=== PATIENT | male | born 1965 | race Caucasian/White ===

== ENCOUNTER 2017-01-03 08:52 | Observation (INO) ==
--- NOTE | 2017-01-03 09:35 | Emergency Department Note ---
Disposition Clinical Impression: Elevated troponin, Shortness of breath, Peripheral edema, Renal insufficiency, Diabetic foot ulcer Disposition: Admitted As Inpatient Condition: Fair Referrals: Billie Van, [employer] [Primary Care Provider] - Forms: ED Satisfaction Letter Time of Disposition: 11:01 SOB HPI - General Chief Complaint: ED Shortness of Breath/Dyspnea Stated Complaint: OBEY/sore L foot Time Seen by Provider: 01/03/17 09:16 Source: patient Limitations: no limitations Nursing Notes Reviewed: Yes Vital Signs Reviewed: Yes - History of Present Illness 51-year-old male presents emergency room for shortness of breath. Is also complaining of dyspnea on exertion over the past couple days. States he feels congested with fluid. Admits to lower extremity swelling that is abnormal for him. He denies any chest pain today. No cough or sputum production. No fevers or chills. He does have a history of congestive heart failure as well as open heart surgery. Symptoms are worse with exertion. Better at rest. He also feels short of breath laying flat. He does admit to taking his Lasix twice daily. Pt Subjective Complaint: shortness of breath Onset (ago): day(s) Severity: moderate Consistency/Duration: constant Improves with: rest Worsens with: exertion Known history of: congestive heart failure Associated symptoms: Reports: chest pain, orthopnea Treatment prior to arrival: none Cough present: No - Related Data Home Medications Medication Instructions Recorded Confirmed Ferrous Sulfate 325 mg PO DAILY 03/11/15 11/15/16 Lisinopril [Zestril] 10 mg PO DAILY 05/05/15 11/15/16 Metoprolol XL (24 HR) Succ [Toprol 50 mg PO DAILY 05/05/15 11/15/16 Xl] Aspirin [Lo-Dose Aspirin EC] 81 mg PO QAM 03/11/16 11/15/16 Atorvastatin [Lipitor] 40 mg PO HS 03/11/16 11/15/16 Insulin ASPART [Novolog Flexpen] 30 unit SQ TIDWM 03/11/16 11/15/16 Liraglutide [Victoza 2-Albino] 0.2 ml SQ HS 03/11/16 11/15/16 Rivaroxaban [Xarelto] 20 mg PO QAM 03/11/16 11/15/16 Albuterol Sulfate [Ventolin Hfa] 2 puff IH Q4H PRN 06/07/16 11/15/16 Diltiazem HCl [Diltiazem 24Hr Cd] 360 mg PO DAILY 06/07/16 11/15/16 Insulin Glargine [Lantus] 80 unit SQ BID 06/07/16 11/15/16 Previous Rx's Medication Instructions Recorded Furosemide [Lasix] 40 mg PO BID 30 Days 06/09/16 predniSONE [PredniSONE] 40 mg PO DAILY 12 Days 06/09/16 Ciprofloxacin [Cipro] 500 mg PO BID #20 tablet 11/15/16 Clindamycin HCl [Cleocin HCl] 150 mg PO QID #40 capsule 11/15/16 Allergies Allergy/AdvReac Type Severity Reaction Status Date / Time No Known Allergies Allergy Verified 11/15/16 12:30 Review of Systems: Gen.: No fevers or chills or new weakness Eyes: Denies double vision or any vision changes Ears: Denies any otalgia Pharynx: Denies sore throat CV: Denies chest pain. Denies palpitations. + for swelling Respiratory: +sob GI: Denies any nausea, vomiting, diarrhea, constipation. Denies abdominal pain Neuro: Denies any headache. No problems with ambulation. No numbness. Skin: Denies any rashes or abrasions Psych: Denies any depression or suicidal or homicidal ideation Musculoskeletal: Denies any arthralgias or myalgias Past Medical History - Past Medical History Medical history: Reports: atrial fibrillation, CHF, COPD, coronary artery disease, CVA, diabetes, GERD, hyperlipidemia, hypertension, myocardial infarction, renal disease Surgical history: Reports: coronary bypass (CABG), other Psychiatric history: Reports: no psych history - Social History Smoking Status: Former smoker Smokeless Tobacco Status: Yes (chewing tobacco) Alcohol use: Reports: none Drug use: Reports: none Physical Exam - General Limitations: no limitations General appearance: alert - Head Head exam: atraumatic, normocephalic - Chest Chest inspection: Present: normal inspection, symmetric chest wall rise - Respiratory Respiratory exam: Present: other (Decreased breath sounds in the bases bilaterally.). Absent: accessory muscle use - Cardiovascular Cardiovascular exam: Present: regular rate, normal rhythm - Abdominal Exam Abdominal exam: Present: soft, Non-Tender - Extremities Exam Extremities exam: Present: other (2-3+ pitting edema bilaterally. Patient also has a ulceration to the medial aspect of the left great toe as well as to the ball of the foot on the left side.) - Back Exam Back exam: Present: normal inspection - Neurological Exam Neurological exam: Present: alert, oriented X3 - Psychiatric Psychiatric exam: Present: normal affect, normal mood - Skin Skin exam: Present: warm, dry, intact Course Course Narrative: Patient's workup revealed an elevated troponin. It is unclear whether this is due to his renal insufficiency or true cardiac etiology. He is not having any chest pain. This was complaints of for dyspnea on exertion. He does wear oxygen at night. He satting fine here in the ER. He is not tachycardic. He does have an underlying history of atrial fibrillation. He does take Xarelto. He has been compliant with his medications as well as his Lasix. Patient will need to be admitted for further cardiac workup. Vital Signs Temperature 97.8 F 01/03/17 08:58 Pulse Rate 75 01/03/17 08:58 Respiratory Rate 18 01/03/17 08:58 Blood Pressure 170/74 01/03/17 08:58 O2 Sat by Pulse Oximetry 93 01/03/17 08:58 Temperature 97.8 F 01/03/17 08:58 Pulse Rate 64 01/03/17 09:43 Respiratory Rate 24 01/03/17 09:43 Blood Pressure 141/69 01/03/17 09:43 O2 Sat by Pulse Oximetry 98 01/03/17 09:55 Oxygen Delivery Oxygen Delivery Nasal Cannula Shortness of Breath/Dyspnea - Medical Records Medical records reviewed: Yes I reviewed the patient's medical records. - Lab Data Lab results reviewed: Yes I reviewed the patient's lab results. Result diagrams: 01/03/17 09:32 01/03/17 09:32 Lab Results 01/03/17 01/03/17 01/03/17 Range/Units 09:32 09:32 09:32 WBC 10.9 (4.3-11.1) K/mcL RBC 4.40 (4.19-5.50) M/mcL Hgb 10.3 L (12.9-16.9) g/dL Hct 33.9 L (37.5-50.1) % MCV 77.0 L (83.0-100.0) fL MCH 23.4 L (28.0-33.3) pg MCHC 30.4 L (31.6-35.5) g/dL RDW 17.0 H (11.5-14.5) % Plt Count 252 (140-400) K/mcL MPV 9.2 L (9.4-12.4) fL Immature Gran % 0.5 (0-4) % Seg Neutrophils % 79.4 % Lymphocytes % 11.6 % Monocytes % 6.1 % Eosinophils % 2.1 % Basophils % 0.3 % Neutrophils # 8.7 (1.6-8.9) K/mcL Lymphocytes # 1.3 (0.6-4.6) K/mcL Monocytes # 0.7 (0.0-1.3) K/mcL Eosinophils # 0.2 (0.0-0.6) K/mcL Basophils # 0.0 (0.0-0.2) K/mcL Immature Plt Fraction 2.3 (1.1-6.1) % PT (9.4-12.1) Seconds INR APTT (26.0-36.0) Seconds Sodium 139 (136-145) mEq/L Potassium 3.6 (3.5-4.5) mEq/L Chloride 105 (98-109) mEq/L Carbon Dioxide 23 (19-29) mEq/L BUN 25 (8-26) mg/dL Creatinine 1.81 H (0.72-1.25) mg/dL Est GFR ( Amer) 48 L (> 60) Est GFR (Non-Af Amer) 39 L (> 60) BUN/Creatinine Ratio 14 (6-26) Glucose 145 H (70-99) mg/dL Calculated Osmolality 295 (280-300) Calcium 9.3 (8.6-10.8) mg/dL Troponin I 0.12 H* (0-0.03) ng/mL B-Natriuretic Peptide (0-100) pg/mL 01/03/17 01/03/17 Range/Units 09:32 09:32 WBC (4.3-11.1) K/mcL RBC (4.19-5.50) M/mcL Hgb (12.9-16.9) g/dL Hct (37.5-50.1) % MCV (83.0-100.0) fL MCH (28.0-33.3) pg MCHC (31.6-35.5) g/dL RDW (11.5-14.5) % Plt Count (140-400) K/mcL MPV (9.4-12.4) fL Immature Gran % (0-4) % Seg Neutrophils % % Lymphocytes % % Monocytes % % Eosinophils % % Basophils % % Neutrophils # (1.6-8.9) K/mcL Lymphocytes # (0.6-4.6) K/mcL Monocytes # (0.0-1.3) K/mcL Eosinophils # (0.0-0.6) K/mcL Basophils # (0.0-0.2) K/mcL Immature Plt Fraction (1.1-6.1) % PT 22.2 H (9.4-12.1) Seconds INR 2.0 APTT 44.0 H (26.0-36.0) Seconds Sodium (136-145) mEq/L Potassium (3.5-4.5) mEq/L Chloride (98-109) mEq/L Carbon Dioxide (19-29) mEq/L BUN (8-26) mg/dL Creatinine (0.72-1.25) mg/dL Est GFR ( Amer) (> 60) Est GFR (Non-Af Amer) (> 60) BUN/Creatinine Ratio (6-26) Glucose (70-99) mg/dL Calculated Osmolality (280-300) Calcium (8.6-10.8) mg/dL Troponin I (0-0.03) ng/mL B-Natriuretic Peptide 154 H (0-100) pg/mL - Radiology Data Radiology results reviewed: Yes I reviewed the patient's radiology results. - EKG Data EKG attestation: Yes I reviewed and interpreted this EKG. EKG results narrative: Rate of 73. MD interval indeterminable. Normal axis. There appears to be some occasional premature atrial complexes. No signs of acute ischemia. QRS 129. QTc 459.
[2017-01-03 09:44] LABS: Basophils % 0.3 %; Eosinophils # 0.2 K/mcL (0.0-0.6); Eosinophils % 2.1 %; Hematocrit 33.9 % (37.5-50.1); Hemoglobin 10.3 g/dL (12.9-16.9); Immature Granulocytes % 0.5 % (0-4); Immature Platelets 2.3 % (1.1-6.1); Lymphocytes # 1.3 K/mcL (0.6-4.6); Lymphocytes % 11.6 %; Mean Corpuscular HGB Conc 30.4 g/dL (31.6-35.5); Mean Corpuscular Hemoglobin 23.4 pg (28.0-33.3); Mean Platelet Volume 9.2 fL (9.4-12.4); Monocytes # 0.7 K/mcL (0.0-1.3); Monocytes % 6.1 %; Neutrophils # 8.7 K/mcL (1.6-8.9); Platelet Count 252 K/mcL (140-400); Segmented Neutrophils % 79.4 %
[2017-01-03 09:56] LABS: Prothrombin Time 22.2 Seconds (9.4-12.1)
[2017-01-03 09:58] LABS: Calcium 9.3 mg/dL (8.6-10.8); Potassium 3.6 mEq/L (3.5-4.5)
[2017-01-03] MEDS ORDERED: Furosemide 40 MG/4 ML VIAL IVP ONE (10:01)
[2017-01-03] MEDS ORDERED: Aspirin 325 MG TABLET PO ONE (11:01)
[2017-01-03] MEDS ORDERED: Naloxone 0.4 MG/ML INJ IVP PRN (16:28)
[2017-01-03] MEDS ORDERED: Ondansetron ODT 4 MG TAB.RAPDIS SL PRN (16:28)
--- NOTE | 2017-01-03 16:56 | Internal Med History&Physical ---
<Miles Rosales Yordan - Last Filed: 01/03/17 19:22> Date of Encounter: 01/03/17 Time of Encounter: 12:30 Assessment and Plan (1) Acute exacerbation of CHF (congestive heart failure) Current visit: Yes Status: Acute Assess: Mr. Mercedes is a 51 year old male presents to emergency room for chief complaint of shortness of breath as well as edema of the lower extremities. His reports dyspnea with exertion over the past week as well as leg weakness bilaterally. He states he feels congested with fluid related to his diagnosis of CHF. Patient also states that lower extremity swelling is not normal for him at this amount. Mr. Mercedes reports that symptoms worse with exertion and are better at rest. He also reports feeling short of breath when lying flat. Patient was seen for similar diagnosis 06/07/2016. Plan: Lasix dosage increased in ED Continue 40 mg Lasix BID Supplemental O2 Ordered Continuous cardiac telemetry Continuous SpO2 monitoring Monitor I&O Monitor daily weight Fluid restriction diet 1500 mL Qualifiers: Congestive heart failure type: unspecified congestive heart failure type Qualified Code(s): I50.9 - Heart failure, unspecified (2) Shortness of breath Current visit: Yes Status: Acute Assess: Mr. Mercedes is a 51 year old male presents to emergency room for chief complaint of shortness of breath as well as edema of the lower extremities. His reports dyspnea with exertion over the past week as well as leg weakness bilaterally. He states he feels congested with fluid related to his diagnosis of CHF. Patient also states that lower extremity swelling is not normal for him at this amount. Mr. Mercedes reports that symptoms worse with exertion and are better at rest. He also reports feeling short of breath when lying flat. Patient was seen for similar diagnosis 06/07/2016. Plan: Lasix dosage increased in ED Continue 40 mg Lasix BID Supplemental O2 Ordered Continuous cardiac telemetry Continuous SpO2 monitoring Monitor I&O Monitor daily weight Fluid restriction diet 1500 mL (3) Peripheral edema Current visit: Yes Status: Acute Assess: Mr. Mercedes is a 51 year old male presents to emergency room for chief complaint of shortness of breath as well as edema of the lower extremities. Plan: Lasix dosage increased in ED Continue 40 mg Lasix BID Monitor I&O Monitor daily weight Fluid restriction diet 1500 mL (4) Elevated troponin Current visit: Yes Status: Acute Assess: Patient presents with acute exacerbation of congestive heart failure. First lab draw showed troponin level 0.12. Plan: Trend troponins Continuous cardiac telemetry Cardiology consult ordered Echocardiogram ordered Follow-up labs ordered Monitor patient and vital signs (5) Diabetic foot ulcer Current visit: Yes Status: Acute Assess: Patient presents with diabetic foot ulcer located on outer side of left great toe as well as pad located underneath the foot. Plan: Wound care education ordered Wound care ordered Bed rest with bathroom privileges and [id number] only Blood glucose monitoring ordered Continue patient's insulin Correction insulin dosing ordered Hypoglycemia protocol ordered Qualifiers: Diabetic foot ulcer location: toe Diabetes mellitus type: type 1 Laterality: left Non-pressure ulcer stage: unspecified non-pressure ulcer stage Qualified Code(s): E10.621 - Type 1 diabetes mellitus with foot ulcer; L97.529 - Non-pressure chronic ulcer of other part of left foot with unspecified severity (6) Renal insufficiency Current visit: Yes Status: Chronic Assess: Patient presents with history of chronic renal insufficiency and chronic kidney disease. Plan: 1500 mL fluid restriction diet ordered Repeat creatinine Monitor I&O Monitor daily weight (7) Diabetes Current visit: Yes Status: Chronic Assess: Patient presents with history of chronic diabetes. Patient also presents with diabetic foot ulcer located on outer side of left great toe as well as pad located underneath the foot. 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 Plan: Heparin 5,000 units SQ Q8 ordered Internal Medicine - H&P: HPI Chief complaint: SOB/Peripheral edema Admitted From: Emergency Dept Plans for Post Hospital Care: Home History of present illness: Mr. Mercedes is a 51 year old male presents to emergency room for chief complaint of shortness of breath as well as edema of the lower extremities. His reports dyspnea with exertion over the past week as well as leg weakness bilaterally. He states he feels congested with fluid related to his diagnosis of CHF. Patient also states that lower extremity swelling is not normal for him at this amount. Mr. Mercedes reports that symptoms worse with exertion and are better at rest. He also reports feeling short of breath when lying flat. Patient was seen for similar diagnosis 06/07/2016. Patient was cardioverted on 03/11/15 for atrial fibrillation and ODESSA of same date showed LVEF of 55-60%. Patient has current history of atrial fibrillation, CHF, COPD, CAD, diabetes, GERD, hyperlipidemia, hypertension, DC, renal disease, chronic anemia, and use of nightly CPAP. Patient also has diabetic foot ulcer located on the side of the left great toe and on the pad located on the bottom of the left foot. Initial lab draws are patient's creatinine at 1.81, GFR 39, and troponin 0.12. Patient to be admitted as inpatient status with trending troponins, continue Lasix, and follow-up labs. Echocardiogram ordered as well as cardiology consult. Patient to be placed on 1500 mL fluid restriction diet. Patient is falls precautions and [id number] status due to SOB and leg weakness. Patient to be monitored closely with initial diagnosis of acute exacerbation of CHF. Wound care education and consult ordered. Past Med Surg Social Fam HX - Past Medical History Source: patient Medical history: atrial fibrillation, CHF, COPD, coronary artery disease, CVA, diabetes, GERD, hyperlipidemia, hypertension, myocardial infarction, renal disease Psychiatric history: no psych history - Past Surgical History Surgical History: coronary bypass (CABG), orthopedic, other (Right hip, right leg surgeries), other (Cataracts) - Social History Smoking Status: Former smoker Smokeless Tobacco Status: Yes (chewing tobacco) Alcohol use: none Drug use: none Occupational status: unemployed Current living situation: Home, With Family Activity Level: Independent ambulation Recent Out of Country Travel Within the Last 8 Weeks: No Exposure or Possible Exposure to Illness During Travel: No - Family History Mother Race: Family Member Ethnicity: Non- Living Status: Age at : 53 Cause of : DC Hx Family Cardiac Disorders: Yes (CHF, DC) Father Race: Family Member Ethnicity: Non- Living Status: Age at : 70 Cause of : DC Hx Family Cardiac Disorders: Yes (CHF, DC) Brother Race: Family Member Ethnicity: Non- Living Status: Still Living Hx Family Respiratory Disorders: Yes (COPD) Sister Race: Family Member Ethnicity: Non- Living Status: Still Living Hx Family Endocrine Disorder: Yes (DM) Internal Medicine - H&P: Meds Ferrous Sulfate 325 mg PO DAILY 03/11/15 [History] Lisinopril [Zestril] 10 mg PO DAILY 05/05/15 [History] Metoprolol XL (24 HR) Succ [Toprol Xl] 50 mg PO DAILY 05/05/15 [History] Aspirin [Lo-Dose Aspirin EC] 81 mg PO QAM 03/11/16 [History] Atorvastatin [Lipitor] 40 mg PO HS 03/11/16 [History] Insulin ASPART [Novolog Flexpen] 30 unit SQ TIDWM 03/11/16 [History] Liraglutide [Victoza 2-Albino] 0.2 ml SQ HS 03/11/16 [History] Rivaroxaban [Xarelto] 20 mg PO QAM 03/11/16 [History] Albuterol Sulfate [Ventolin Hfa] 2 puff IH Q4H PRN 06/07/16 [History] Diltiazem HCl [Diltiazem 24Hr Cd] 360 mg PO DAILY 06/07/16 [History] Insulin Glargine [Lantus] 80 unit SQ BID 06/07/16 [History] Furosemide [Lasix] 40 mg PO BID 30 Days 06/09/16 [Rx] Cetirizine HCl [Cetirizine HCl] 10 mg PO DAILY 01/03/17 [History] Allergies No Known Allergies Allergy (Verified 01/03/17 12:41) All Systems PM: A 10-system review of systems was performed and is negative for pertinent findings except as documented above in the HPI. - Constitutional Constitutional: as per HPI, weakness, no chills, no fever(s), no night sweats - EENT Eyes: no change in vision, no discharge, no pain, no photophobia Ears: no ear discharge, no ear pain, no tinnitus Nose, mouth and throat: no dysphagia, no nasal discharge, no neck pain, no sore throat - Breasts Breasts: as per HPI - Cardiovascular Cardiovascular ROS IM: as per HPI, chest pain (Patient reports mild chest pain several weeks ago.), dyspnea, dyspnea on exertion, edema, no diaphoresis, no lightheadedness, no palpitations, no syncope - Respiratory Respiratory: as per HPI, dyspnea, dyspnea on exertion, chest congestion - Gastrointestinal Gastrointestinal: no abdominal pain, no diarrhea, no hematemesis, no hematochezia, no melena, no nausea, no vomiting - Genitourinary Genitourinary ROS male: as per HPI - Musculoskeletal Musculoskeletal ROS IM: no numbness, no tingling - Integumentary Integumentary IM: no rash, no unusual bruising - Neurological Neurological ROS: no confusion, no convulsions, no focal weakness, no numbness, no tingling, no tremor(s) - Psychiatric Psychiatric: as per HPI - Endocrine Endocrine IM: as per HPI - Hematologic/Lymphatic Hematologic/Lymphatic: no easy bruising - Allergic/Immunologic Allergic/Immunologic: as per HPI - Constitutional Vitals: Temp Pulse Resp BP Pulse Ox 97.9 F 54 28 115/77 97 01/03/17 15:24 01/03/17 15:24 01/03/17 15:24 01/03/17 15:24 01/03/17 15:24 General appearance: Present: cooperative, mild distress, A&O X 3, morbidly obese , pleasant, answers questions appropriately - Head Head exam: Present: atraumatic, normocephalic - Eye Eye exam: Present: PERRL, conjuntiva pink, sclera anicteric Pupils: Present: PERRL - ENT ENT exam: Present: normal exam, normal external ear exam - Neck Neck exam general surgery: Present: supple, trachea midline. Absent: lymphadenopathy - Respiratory Respiratory exam: Present: decreased breath sounds - Cardiovascular Cardiovascular exam: Present: RRR, +S1, +S2. Absent: diastolic murmur, gallop, rubs, systolic murmur - GI/Abdominal GI/Abdominal exam: Present: normal bowel sounds, soft, no peritoneal signs. Absent: distended, tenderness - Rectal Rectal exam: Present: deferred - Additional comments: exam deferred. - Extremities Exam Extremities exam: Present: warm, radial pulses palpable and symetrical. Absent : calf tenderness, cyanotic, pedal edema - Back Exam Back exam: Present: normal inspection - Neurological Exam Neurological exam: Present: CN II-XII intact, oriented X3, no focal deficits. Absent: pronater drift, facial droop, speech deficit - Psychiatric Psychiatric exam: Present: normal affect, normal mood - Skin Skin exam: Present: dry, intact Internal Med - H&P Results - Labs CBC & Chem 7: 01/03/17 09:32 01/03/17 09:32 - EKG Data Prior EKG available for review: yes When compared to previous EKG: there are significant changes EKG comments: 01/03/17 18:45 EKG dated 06/07/16 shows atrial fibrillation, intraventricular conduction delay , poor R-wave progression EKG dated 01/03/17 shows uncertain regular rhythm, moderate intraventricular conduction delay [11+ ms QRS duration], nonspecific ST and T-wave abnormality. - Diagnostic Studies Chest x-ray Additional comments: Impressions Chest X-Ray 01/03/17 09:24 IMPRESSION: Cardiomegaly and pulmonary vascular congestion without overt pulmonary edema. D/ / Liana Sears MD / Liana Sears MD Interpreting Provider: Liana Sears MD <Em Johnston E - Last Filed: 01/04/17 07:37> Date of Encounter: 01/04/17 Internal Medicine - H&P: HPI History of present illness: Mr. Mercedes is a 51 year old male All Systems PM: A 10-system review of systems was performed and is negative for pertinent findings except as documented above in the HPI. - Constitutional Vitals: Temp Pulse Resp BP Pulse Ox 98.1 F 55 16 145/75 95 01/04/17 06:38 01/04/17 06:38 01/04/17 06:38 01/04/17 06:38 01/04/17 06:38 Internal Med - H&P Results - Labs CBC & Chem 7: 01/04/17 00:42 01/04/17 00:42 Labs: Short CBC 01/04/17 Range/Units 00:42 WBC 10.9 (4.3-11.1) K/mcL Hgb 9.5 L (12.9-16.9) g/dL Hct 31.7 L (37.5-50.1) % Plt Count 230 (140-400) K/mcL Neutrophils # 8.4 (1.6-8.9) K/mcL BMP 01/04/17 00:42 Sodium 141 Potassium 3.7 Chloride 103 Carbon Dioxide 28 BUN 28 H Creatinine 1.99 H Glucose 90 Calcium 9.0 Cardiac Enzymes 01/03/17 01/04/17 01/04/17 Range/Units 17:26 00:42 06:21 Troponin I 0.11 H* 0.12 H* 0.11 H* (0-0.03) ng/mL Liver Function 01/04/17 Range/Units 00:42 Total Bilirubin 0.7 (0.2-1.2) mg/dL AST 18 (5-34) Units/L ALT 18 (0-55) Units/L Alkaline Phosphatase 101 (38-126) Units/L Albumin 3.0 L (3.5-5.0) g/dL - Attending Attestation This is a late entry for a patient I examined and reviewed laboratory, imaging and all diagnostic data on 01/03/17. My medical decision-making was reviewed with Miles Rosales - ELENI. I agreed with the documented findings, disposition and treatment plan as described above. Mr Mercedes is a 51 yo male with past medical history of atrial fibrillation, diastolic heart failure, HTN and chronic anemia. He presents with SOB and peripheral edema. During my examination, patient was AOX3. chest crackles bibasal. no wheezes. heart irregular rate. cr 1.81. Hgb 9.5. troponin 0.11. bnp 154. CXR reviewed by me and it shows pulmonary vascular congestion. A/P. 1. Acute heart failure exacerbation. continue IV lasix. fluid restriction. 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 2. elevated troponin at 0.12. serial troponins. CKD 3. at baseline. close monitoring.
[2017-01-03 17:46] LABS: Hemoglobin A1C 6.7 %
[2017-01-03] MEDS ORDERED: Furosemide 40 MG TABLET PO SCH (18:00)
[2017-01-03] MEDS ORDERED: Dextrose Gel 15 GM PO PRN ×2 (18:24)
[2017-01-03] MEDS ORDERED: D5% in Water 1,000 ML IVC PRN (18:24)
[2017-01-03] MEDS ORDERED: *HR* Dextrose 50 % in Water (Syg) 50 ML SYRINGE IVP PRN (18:24)
[2017-01-03] MEDS: Furosemide 40 MG/4 ML VIAL IVP SCH (20:09)
[2017-01-03] MEDS: Insulin DETEMIR 100 UNIT/ML X5UNITS SQ SCH (20:10)
[2017-01-03] MEDS: Insulin LISPRO 300 UNITS/3 ML VIAL SQ SCH (22:29)
[2017-01-04 01:46] LABS: INR 1.5; Prothrombin Time 16.3 Seconds (9.4-12.1)
[2017-01-04 01:49] LABS: Activated Partial Thrombo Time 38.4 Seconds (26.0-36.0)
[2017-01-04 01:57] LABS: Basophils % 0.4 %; Eosinophils # 0.2 K/mcL (0.0-0.6); Hematocrit 31.7 % (37.5-50.1); Hemoglobin 9.5 g/dL (12.9-16.9); Immature Granulocytes % 0.3 % (0-4); Lymphocytes # 1.4 K/mcL (0.6-4.6); Lymphocytes % 12.8 %; Mean Corpuscular Hemoglobin 23.8 pg (28.0-33.3); Mean Corpuscular Volume 79.3 fL (83.0-100.0); Mean Platelet Volume 10.5 fL (9.4-12.4); Monocytes # 0.8 K/mcL (0.0-1.3); Monocytes % 7.2 %; Neutrophils # 8.4 K/mcL (1.6-8.9); Platelet Count 230 K/mcL (140-400); Red Cell Distribution Width 17.1 % (11.5-14.5); Segmented Neutrophils % 77.3 %
[2017-01-04 02:04] LABS: Albumin/Globulin Ratio 0.7 (1.1-2.2); Bilirubin,Total 0.7 mg/dL (0.2-1.2); Chol/HDL Ratio 3.8 (0-4.9); Globulin 4.5 g/dL (2.4-3.5); Magnesium 2.2 mg/dL (1.6-2.6); Potassium 3.7 mEq/L (3.5-4.5); Total Protein 7.5 g/dL (6.0-8.3)
[2017-01-04] MEDS ORDERED: Insulin LISPRO 300 UNITS/3 ML VIAL SQ SCH (08:00)
[2017-01-04] MEDS: Insulin LISPRO 300 UNITS/3 ML VIAL SQ SCH ×4 (08:13→21:39)
--- NOTE | 2017-01-04 08:31 | Cardiology Consult Note ---
Date of Encounter: 01/04/17 Time of Encounter: 08:26 Assessment and Plan (1) Congestive heart failure Current Visit: No Status: Acute History of heart failure with preserved EF. Currently NYHA class IV. ODESSA/DCCV 03/11/15: LVEF 55-60%, no significant valvular disease, no evidence of LA thrombus, following the ODESSA he was successfully DC cardioverted to normal sinus rhythm. Fluid overload on exam. Agree with IV lasix. Reports recent decrease in oral lasix and non-compliance with low sodium diet. CHF education reviewed with patient including low sodium diet. Strict I&O and daily weights. -1800 ml over last 24 hours. Symptoms improved. Repeat TTE pending. Qualifiers: Congestive heart failure type: diastolic Congestive heart failure chronicity: acute Qualified Code(s): I50.31 - Acute diastolic (congestive) heart failure (2) Atrial fibrillation Current Visit: No Status: Acute Chronic atrial fibrillation. Avg HR 56 bpm with minimum HR 48 bpm. Cardizem currently being held. C/o dizziness with position change at times. Continue toprol XL 50 mg daily. Consider adding back cardizem if HR increases. Qualifiers: Atrial fibrillation type: chronic Qualified Code(s): I48.2 - Chronic atrial fibrillation (3) Elevated troponin Current Visit: Yes Status: Acute Mild adynamic troponin elevation in the setting demand ischemia from acute on chronic CHF and CKD. TTE pending. Patient denies chest pain. If no significant change suspect no further testing from cardiology standpoint. (4) CAD (coronary artery disease) Current Visit: Yes Status: Acute H/o CABG . Continue asa, statin, and bb. Denies chest pain. Qualifiers: Coronary Disease-Associated Artery/Lesion type: [place] artery [place] vs. transplanted heart: [place] heart Associated angina: without angina Qualified Code(s): I25.10 - Atherosclerotic heart disease of [place] coronary artery without angina pectoris Discussion w patient/family: The assessment and plan as outlined above was discussed with the patient and/or family members who expressed understanding and agreement. All questions were answered. Thank you for involving us in the care of your patient. Please call with any questions. History of Present Illness Consult date: 01/04/17 Requesting physician: Em Johnston Consult reason: CHF, elevated troponin Chief complaint: SOB, BLE edema. History of present illness: Mr. Mercedes is a 51 year old male with a history of 3V CABG, prior PCI, diastolic CHF, atrial fibrillation on xarelto, COPD, MOSES on c-pap, CKD, HTN, HLD, CVA and diabetes. He presents with three weeks of increasing BLE edema, SOB, orthopnea, dyspnea on exertion, and palpitations. Reports recent decrease in oral lasix. Also reports not doing well with low sodium diet. He denies chest pain. Denies nausea, vomiting, or diaphoresis. Cardiology consulted for CHF and troponin elevation. ODESSA/DCCV 03/11/15: LVEF 55-60%, no significant valvular disease, no evidence of LA thrombus, following the ODESSA he was successfully DC cardioverted to normal sinus rhythm. 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 Past Med Surg Social Fam HX - Past Medical History Attestation: Yes The following information was validated with the patient. Medical history: atrial fibrillation, CHF, COPD, coronary artery disease, CVA, diabetes, GERD, hyperlipidemia, hypertension, myocardial infarction, renal disease Psychiatric history: no psych history - Past Surgical History Surgical History: coronary bypass (CABG), orthopedic, other (Right hip, right leg surgeries), other (Cataracts) - Social History Smoking Status: Former smoker Smokeless Tobacco Status: Yes (chewing tobacco) Alcohol use: none Drug use: none - Family History Mother Race: Family Member Ethnicity: Non- Living Status: Age at : 53 Cause of : [place] Hx Family Cardiac Disorders: Yes (CHF, [place]) Father Race: Family Member Ethnicity: Non- Living Status: Age at : 70 Cause of : [place] Hx Family Cardiac Disorders: Yes (CHF, [place]) Brother Race: Family Member Ethnicity: Non- Living Status: Still Living Hx Family Respiratory Disorders: Yes (COPD) Sister Race: Family Member Ethnicity: Non- Living Status: Still Living Hx Family Endocrine Disorder: Yes (DM) Medications and Allergies Ferrous Sulfate 325 mg PO DAILY 03/11/15 [History] Lisinopril [Zestril] 10 mg PO DAILY 05/05/15 [History] Metoprolol XL (24 HR) Succ [Toprol Xl] 50 mg PO DAILY 05/05/15 [History] Aspirin [Lo-Dose Aspirin EC] 81 mg PO QAM 03/11/16 [History] Atorvastatin [Lipitor] 40 mg PO HS 03/11/16 [History] Insulin ASPART [Novolog Flexpen] 30 unit SQ TIDWM 03/11/16 [History] Liraglutide [Victoza 2-Albino] 0.2 ml SQ HS 03/11/16 [History] Rivaroxaban [Xarelto] 20 mg PO QAM 03/11/16 [History] Albuterol Sulfate [Ventolin Hfa] 2 puff IH Q4H PRN 06/07/16 [History] Diltiazem HCl [Diltiazem 24Hr Cd] 360 mg PO DAILY 06/07/16 [History] Insulin Glargine [Lantus] 80 unit SQ BID 06/07/16 [History] Furosemide [Lasix] 40 mg PO BID 30 Days 06/09/16 [Rx] Cetirizine HCl [Cetirizine HCl] 10 mg PO DAILY 01/03/17 [History] Allergies No Known Allergies Allergy (Verified 01/03/17 12:41) All Systems Review: A 10-system review of systems was performed and is negative for pertinent findings except as documented above in the HPI. Physical Examination Vital Signs, Last 4 Hours Temp Pulse Resp BP Pulse Ox 01/04/17 06:38 98.1 F 55 16 145/75 95 General: Conversant, No Apparent Distress HEENT: Atraumatic, Normocephaly, Mucus Membranes Moist Neck: No JVD, Normal carotid pulses Cardiac: Other (Irregularly irregular. ) Lungs: Normal Breath Sounds, No Wheeze, Rales, Rhonchi Neuro: Alert and responsive, No focal deficits noted Abdomen: Soft, Non-Tender Skin: No rashes noted on visualized skin Musculoskeletal: No Chest Wall Tenderness Extremities: No Clubbing, No Cyanosis, Normal Pulses, Other (Trace pitting edema , non-pitting edema noted.) Results 01/04/17 00:42 06/07/17 00:42 Lab Results 01/03/17 01/04/17 01/04/17 17:26 00:42 00:42 WBC 10.9 Hgb 9.5 L Hct 31.7 L Plt Count 230 INR APTT Sodium Potassium Chloride Carbon Dioxide BUN Creatinine Glucose Calcium Magnesium Total Bilirubin AST ALT Alkaline Phosphatase Troponin I 0.11 H* 0.12 H* B-Natriuretic Peptide 01/04/17 01/04/17 01/04/17 00:42 00:42 00:42 WBC Hgb Hct Plt Count INR 1.5 APTT 38.4 H Sodium 141 Potassium 3.7 Chloride 103 Carbon Dioxide 28 BUN 28 H Creatinine 1.99 H Glucose 90 Calcium 9.0 Magnesium 2.2 Total Bilirubin 0.7 AST 18 ALT 18 Alkaline Phosphatase 101 Troponin I B-Natriuretic Peptide 129 H 01/04/17 06:21 WBC Hgb Hct Plt Count INR APTT Sodium Potassium Chloride Carbon Dioxide BUN Creatinine Glucose Calcium Magnesium Total Bilirubin AST ALT Alkaline Phosphatase Troponin I 0.11 H* B-Natriuretic Peptide Chest X-Ray 01/03/17 09:24 IMPRESSION: Cardiomegaly and pulmonary vascular congestion without overt pulmonary edema. D/ / Liana Sears MD / Liana Sears MD Interpreting Provider: Liana Sears MD - Imaging and Cardiology Echo: report reviewed - EKG Interpretation EKG results cardiology: personally reviewed (atrial fibrillation with controlled response, IVCD. No acute ST changes.) Consult Discharge Plan - Plan Referrals: Billie Van, DYEING MACHINE TENDER [Primary Care Provider] -
[2017-01-04] MEDS ORDERED: *HR* Rivaroxaban 10 MG TABLET PO SCH (09:00)
[2017-01-04] MEDS ORDERED: Pantoprazole 40 MG VIAL IVP SCH (09:00)
[2017-01-04] MEDS: *HR* Rivaroxaban 10 MG TABLET PO SCH (09:57)
[2017-01-04] MEDS: Loratadine 10 MG TABLET PO SCH (09:57)
[2017-01-04] MEDS: Aspirin Enteric Coated 81 MG Tablet PO SCH (09:57)
[2017-01-04] MEDS: Metoprolol XL (24 HR) Succ 50 MG TAB.ER.24H PO SCH (09:57)
[2017-01-04] MEDS: Insulin DETEMIR 100 UNIT/ML X5UNITS SQ SCH ×2 (10:03→21:41)
[2017-01-04] MEDS: Furosemide 40 MG/4 ML VIAL IVP SCH ×2 (10:03→17:46)
--- NOTE | 2017-01-04 11:19 | Electrocardiograph Report ---
[place] [id number] Test Date: 2017-01-03 Pat Name: Giancarlo Mercedes Department: 102 Room: 2A Gender: M Chairman President And Chief Executive Officer: Bill : 1965 Requested By: Fadi Hanson Order Number: [id number] Reading MD: Jonatan Lima MD Measurements Intervals [place] Rate: 73 P: AR: 0 QRS: -8 QRSD: 129 T: 105 QT: 433 QTc: 459 Interpretive Statements atrial fibrillation with controlled response INTRAVENTRICULAR CONDUCTION DELAY Electronically Signed On 01-04-2017 11:17:09 EDT by Jonatan Lima MD
--- NOTE | 2017-01-04 17:22 | Internal Med Progress Note ---
Date of Encounter: 01/04/17 Time of Encounter: 08:55 - Assessment and plan (1) Acute exacerbation of CHF (congestive heart failure) Current Visit: Yes Status: Acute Assessment and plan: Continue IV Lasix. Follow renal function closely. I do expect his renal function to worsen slightly due to his chronic kidney disease with the use of diuretics. But as long as he is having good urine output, I would recommend continuing higher dose of Lasix. High-risk for complications due to use of IV Lasix. Qualifiers: Congestive heart failure type: diastolic Qualified Code(s): I50.33 - Acute on chronic diastolic (congestive) heart failure (2) Chronic kidney disease, stage III (moderate) Current Visit: Yes Status: Chronic Assessment and plan: Renal function remained stable although creatinine is slightly worsened but still at baseline (3) Diabetes Current Visit: Yes Status: Chronic Assessment and plan: Well controlled. No changes to current insulin regimen Qualifiers: Diabetes mellitus type: type 2 Diabetes mellitus complication status: with kidney complications Diabetes mellitus complication detail: with other kidney complication Diabetes mellitus snf insulin use: with snf use Qualified Code(s): E11.29 - Type 2 diabetes mellitus with other diabetic kidney complication; Z79.4 - long term care social worker (current) use of insulin (4) Diabetic foot ulcer Current Visit: Yes Status: Chronic Assessment and plan: Noninfectious. Continue following up with podiatry as outpatient Qualifiers: Diabetic foot ulcer location: toe Diabetes mellitus type: type 1 Laterality: left Non-pressure ulcer stage: unspecified non-pressure ulcer stage Qualified Code(s): E10.621 - Type 1 diabetes mellitus with foot ulcer; L97.529 - Non-pressure chronic ulcer of other part of left foot with unspecified severity (5) DVT prophylaxis Current Visit: Yes Status: Acute (6) Elevated troponin Current Visit: Yes Status: Acute Assessment and plan: Follow cardiology recommendations. Most likely due to demand ischemia. Trending down (7) Renal insufficiency Current Visit: Yes Status: Chronic - Subjective Interval history: Patient is feeling somewhat better today. Shortness of breath is improving. Still has significant pedal edema. - Constitutional Vitals: Temp Pulse Resp BP Pulse Ox 98.3 F 60 18 120/63 96 01/04/17 15:31 01/04/17 15:31 01/04/17 15:31 01/04/17 15:31 01/04/17 15:31 General appearance: Present: cooperative, mild distress, A&O X 3, morbidly obese , pleasant, answers questions appropriately - Eye Eye exam: Present: EOMI, PERRL, conjuntiva pink, sclera anicteric - Respiratory Respiratory exam: Present: CTAB. Absent: accessory muscle use, rales, rhonchi, wheezes - Cardiovascular Cardiovascular exam: Present: RRR, +S1, +S2. Absent: diastolic murmur, gallop, rubs, systolic murmur - GI/Abdominal GI/Abdominal exam: Present: normal bowel sounds, soft, no peritoneal signs. Absent: distended, tenderness - Extremities Exam Extremities exam: Present: pedal edema, warm, radial pulses palpable and symetrical. Absent: calf tenderness, cyanotic Additional comments: Left foot ulcer on the medial surface of the great toe and on the plantar surface over the third and fourth metacarpals. No erythema or discharge noted - Neurological Exam Neurological exam: Present: alert, oriented X3, no focal deficits. Absent: facial droop, speech deficit Internal Medicine: Result - Labs CBC & Chem 7: 01/04/17 00:42 01/04/17 00:42 Labs: Short CBC 01/04/17 Range/Units 00:42 WBC 10.9 (4.3-11.1) K/mcL Hgb 9.5 L (12.9-16.9) g/dL Hct 31.7 L (37.5-50.1) % Plt Count 230 (140-400) K/mcL Neutrophils # 8.4 (1.6-8.9) K/mcL BMP 01/04/17 00:42 Sodium 141 Potassium 3.7 Chloride 103 Carbon Dioxide 28 BUN 28 H Creatinine 1.99 H Glucose 90 Calcium 9.0 Cardiac Enzymes 01/03/17 01/04/17 01/04/17 Range/Units 17:26 00:42 06:21 Troponin I 0.11 H* 0.12 H* 0.11 H* (0-0.03) ng/mL 01/04/17 Range/Units 12:15 Troponin I 0.09 H* (0-0.03) ng/mL Liver Function 01/04/17 Range/Units 00:42 Total Bilirubin 0.7 (0.2-1.2) mg/dL AST 18 (5-34) Units/L ALT 18 (0-55) Units/L Alkaline Phosphatase 101 (38-126) Units/L Albumin 3.0 L (3.5-5.0) g/dL - ABG Interpretation ABG results: PT/INR, D-dimer PT 16.3 Seconds (9.4-12.1) H 01/04/17 00:42 Consult Discharge Plan - Plan Referrals: Billie Van, HAND SPRING REPAIRER [Primary Care Provider] - - Attending Attestation This document has been at least partially created by [employer] recognition technology by Dr. Tovar. Errors in grammar, wording or other phrases may exist. If errors are found after the documentation is signed, they will be addressed individually in the addendum section of this document when appropriate.
[2017-01-05 05:02] LABS: Potassium 3.6 mEq/L (3.5-4.5)
[2017-01-05 07:51] VITALS: BP 138/81
[2017-01-05] MEDS: Insulin LISPRO 300 UNITS/3 ML VIAL SQ SCH (08:10)
[2017-01-05] MEDS: Metoprolol XL (24 HR) Succ 50 MG TAB.ER.24H PO SCH (08:54)
[2017-01-05] MEDS: *HR* Rivaroxaban 10 MG TABLET PO SCH (08:54)
[2017-01-05] MEDS: Aspirin Enteric Coated 81 MG Tablet PO SCH (08:54)
[2017-01-05] MEDS: Loratadine 10 MG TABLET PO SCH (08:55)
[2017-01-05] MEDS: Furosemide 40 MG/4 ML VIAL IVP SCH (08:55)
[2017-01-05] MEDS: Insulin DETEMIR 100 UNIT/ML X5UNITS SQ SCH (09:19)
--- NOTE | 2017-01-05 09:21 | Discharge Summary ---
Date of Encounter: 01/05/17 Time of Encounter: 09:15 - Discharge Diagnosis (1) Acute exacerbation of CHF (congestive heart failure) Priority: Primary Status: Acute Qualifiers: Congestive heart failure type: diastolic Qualified Code(s): I50.33 - Acute on chronic diastolic (congestive) heart failure (2) Chronic kidney disease, stage III (moderate) Priority: Secondary Status: Chronic (3) Diabetes Priority: Secondary Status: Chronic Qualifiers: Diabetes mellitus type: type 2 Diabetes mellitus complication status: with kidney complications Diabetes mellitus complication detail: with other kidney complication Diabetes mellitus tank terminal gauger insulin use: with tank terminal gauger use Qualified Code(s): E11.29 - Type 2 diabetes mellitus with other diabetic kidney complication; Z79.4 - director long term care (current) use of insulin (4) Diabetic foot ulcer Priority: Secondary Status: Chronic Qualifiers: Diabetic foot ulcer location: toe Diabetes mellitus type: type 1 Laterality: left Non-pressure ulcer stage: unspecified non-pressure ulcer stage Qualified Code(s): E10.621 - Type 1 diabetes mellitus with foot ulcer; L97.529 - Non-pressure chronic ulcer of other part of left foot with unspecified severity (5) DVT prophylaxis Priority: Secondary Status: Acute (6) Elevated troponin Priority: Secondary Status: Acute (7) Renal insufficiency Priority: Secondary Status: Chronic - Discharge Medications Prescriptions: Furosemide [Lasix] 60 mg PO BID #60 tablet Home Medications: Ferrous Sulfate 325 mg PO DAILY 03/11/15 [History] Lisinopril [Zestril] 10 mg PO DAILY 05/05/15 [History] Metoprolol XL (24 HR) Succ [Toprol Xl] 50 mg PO DAILY 05/05/15 [History] Aspirin [Lo-Dose Aspirin EC] 81 mg PO QAM 03/11/16 [History] Atorvastatin [Lipitor] 40 mg PO HS 03/11/16 [History] Insulin ASPART [Novolog Flexpen] 30 unit SQ TIDWM 03/11/16 [History] Liraglutide [Victoza 2-Albino] 0.2 ml SQ HS 03/11/16 [History] Rivaroxaban [Xarelto] 20 mg PO QAM 03/11/16 [History] Albuterol Sulfate [Ventolin Hfa] 2 puff IH Q4H PRN 06/07/16 [History] Insulin Glargine [Lantus] 80 unit SQ BID 11/08/16 [History] Cetirizine HCl 10 mg PO DAILY 01/03/17 [History] Furosemide [Lasix] 60 mg PO BID #60 tablet 01/05/17 [Rx] Allergies/Adverse Reactions: Allergies No Known Allergies Allergy (Verified 01/03/17 12:41) Procedures/tests Complete & Pending: Procedures Performed prior 72 hours Category Date Time Status EV echocardiogram Stat Y 01/03/17 18:32 Completed Date of admission: 01/03/17 13:19 Primary care physician: Billie Van CNP Consults: 01/03/17 16:36 Consult to Occupational Therapy [CONS] Routine Comment: Evaluate, develop and implement POC Reason for Consult: Patient has ambulation problems at home which affects his ADLs Consult to Physical Therapy [CONS] Routine Comment: Evaluate, develop and implement POC Reason for Consult: Patient has ambulation problems at home which affects his ADLs 01/03/17 16:46 Consult to Cardiology [CONS] Routine Comment: Consulting Provider: Cardiology Mell Reason for Consult: Patient has hx of CAD, Afib, HTN, and CHF with acute exacerbations Call Completed: Yes 01/03/17 16:50 Consult to Adjuster Arbitrator [CONS] Routine Comment: Reason for Consult: Patient has hx of diabetes with neuropathy and non- compliance with diet Discharging clinician: Homero Tovar Anticipated date of discharge: 01/05/17 - Patient Status Disposition: Home Health Service Condition: Fair Functional capacity at discharge: uses cane/walker Overall status at discharge: patient is progressing back to baseline - Discharge Instructions Instructions: Heart Failure (DC), Atrial Fibrillation (DC), Diabetes Mellitus Type 2 in Adults (DC) Follow Up With: Billie Van CNP [Primary Care Provider] - 01/13/17 12:00 pm Additional Instructions: Follow-up with cardiology in 1-2 weeks - Diet and Activity Activity: increase activity as tolerated Diet: advance to your usual diet, diabetic diet, low fat, low cholesterol, low salt diet, other (Fluid restriction to 1.5 L per day) Hospital course: Mr. Mercedes is a 51 year old male patient with a history of atrial fibrillation, congestive heart failure, COPD, kidney disease, diabetes and hypertension who presented to the ER with complaints of worsening shortness of breath and pedal edema. Was diagnosed with acute systolic congestive heart failure and was treated with IV Lasix. His troponins were also slightly elevated and cardiology was consulted. They recommended a 2-D echocardiogram which showed an EF of 55% which was unchanged from his previous echo. He did have good response to IV Lasix and his renal function has remained stable. At this time, he is stable to be discharged home and will follow up with cardiology in 1-2 weeks. He will also follow up with his primary care provider in one week. I am decreasing the dosage of his Cardizem as his heart rate has been well controlled here. He will be discharged on 60 mg twice daily of Lasix which he needs to continue despite his chronic kidney disease. I do expect a slight worsening of his renal function but she should continue this dosage as long as he has good urine output. I will also arrange for home health and nursing for him to help monitor his weights and help manage his medications. Patient also has chronic diabetic ulcer on his left foot for which he follows up with podiatry. This is not infected. - Time Spent with Patient Total time spent providing and/or coordinating discharge services: Greater than 30 minutes (35 min) - Constitutional Vitals: Temp Pulse Resp BP Pulse Ox 98.4 F 60 16 138/81 94 01/05/17 07:48 01/05/17 07:48 01/05/17 07:48 01/05/17 07:48 01/05/17 09:06 General appearance: Present: cooperative, mild distress, A&O X 3, morbidly obese , pleasant, answers questions appropriately - Cardiovascular Cardiovascular exam: Present: irregular rhythm, +S1, +S2. Absent: diastolic murmur, gallop, rubs, systolic murmur - GI/Abdominal GI/Abdominal exam: Present: normal bowel sounds, soft, no peritoneal signs. Absent: distended, tenderness - Extremities Exam Extremities exam: Present: pedal edema (improving 1+), warm, radial pulses palpable and symetrical. Absent: calf tenderness, cyanotic - Skin Skin exam: Present: dry, intact - Attending Attestation This document has been at least partially created by [employer] recognition technology by Dr. Tovar. Errors in grammar, wording or other phrases may exist. If errors are found after the documentation is signed, they will be addressed individually in the addendum section of this document when appropriate.
--- NOTE | 2017-01-05 09:33 | Physician Discharge Referral ---
Home Health/Hosp Referral Info Transfer to: Home Health Provider in Charge Post Discharge: PCP - Diagnosis (1) Acute exacerbation of CHF (congestive heart failure) Priority: Primary Status: Acute (2) Chronic kidney disease, stage III (moderate) Priority: Secondary Status: Chronic (3) Diabetes Priority: Secondary Status: Chronic (4) Diabetic foot ulcer Priority: Secondary Status: Chronic (5) DVT prophylaxis Priority: Secondary Status: Acute (6) Elevated troponin Priority: Secondary Status: Acute (7) Renal insufficiency Priority: Secondary Status: Chronic - Respiratory Orders Smoking Cessation: Smoking cessation has been advised. For more information, call the [place] Tobacco Quit Line at 6-889-KAVP-NOW. - Diet/Nutrition Diet/Nutrition Orders: Cardiac, No Concentrated Sweets (cardiac) Diet/Nutrition: List: Fluid Restriction to 1.5 L per day - Activity Activity Orders: Walker - Services Needed Following services are medically necessary services: Nursing - Transfer Medications Prescriptions: Furosemide [Lasix] 60 mg PO BID #60 tablet Home Medications: Ferrous Sulfate 325 mg PO DAILY 03/11/15 [History] Lisinopril [Zestril] 10 mg PO DAILY 05/05/15 [History] Metoprolol XL (24 HR) Succ [Toprol Xl] 50 mg PO DAILY 05/05/15 [History] Aspirin [Lo-Dose Aspirin EC] 81 mg PO QAM 03/11/16 [History] Atorvastatin [Lipitor] 40 mg PO HS 03/11/16 [History] Insulin ASPART [Novolog Flexpen] 30 unit SQ TIDWM 03/11/16 [History] Liraglutide [Victoza 2-Albino] 0.2 ml SQ HS 03/11/16 [History] Rivaroxaban [Xarelto] 20 mg PO QAM 03/11/16 [History] Albuterol Sulfate [Ventolin Hfa] 2 puff IH Q4H PRN 06/07/16 [History] Insulin Glargine [Lantus] 80 unit SQ BID 06/07/16 [History] Cetirizine HCl 10 mg PO DAILY 01/03/17 [History] Furosemide [Lasix] 60 mg PO BID #60 tablet 01/05/17 [Rx] Allergies/Adverse Reactions: Allergies No Known Allergies Allergy (Verified 01/03/17 12:41) Certification: Further, I certify that my clinical findings support that this patient is homebound (i.e. absences from home require considerable and taxing effort and are for medical reasons or evangelical services or infrequently or short duration when for other reasons) because: Homebound Reason: Severity of cardiac or pulmonary status limits activity tolerance Attestation: My signature below is to certify that this patient is under my care and that I, or nurse practitioner, or a physician's assistant food service director working with me, has a face-to -face encounter with this patient.
== END 2017-01-05 12:02 | disposition home health service (06) ==
LOC: 2ANU 08:52 → EMEROO 08:52 → 2ANU 13:42
PROVIDERS: ADMIT Nurse Practitioner Family; ATTEND Internal Medicine

== ENCOUNTER 2017-03-04 14:22 | Observation (INO) ==
[2017-03-04] MEDS ORDERED: Nitroglycerin 0.4 MG TAB.SUBL SL ONE (14:57)
[2017-03-04] MEDS ORDERED: Aspirin 81 MG TAB.CHEW PO ONE (14:57)
[2017-03-04] MEDS ORDERED: *HR* Metoprolol 5 MG/5 ML VIAL IVP ONE (14:57)
--- NOTE | 2017-03-04 14:59 | Emergency Department Note ---
Disposition Clinical Impression: NSTEMI (non-ST elevated myocardial infarction) Chest pain Qualifiers: Chest pain type: other chest pain Qualified Code(s): R07.89 - Other chest pain Disposition: Admitted As Inpatient Condition: Serious Time of Disposition: 18:06 Chest Pain HPI - General Chief Complaint: ED General Medical Stated Complaint: Neck/Back Pain Time Seen by Provider: 03/04/17 14:34 Source: patient Limitations: no limitations Vital Signs Reviewed: Yes Nursing Notes Reviewed: Yes - History of Present Illness HPI Narrative: 51-year-old male history of Afib on Xarelto and metoprolol, hyperlipidemia, hypertension, insulin dependent diabetes, presents with left-sided neck pain and chest pain radiation to the back of the right shoulder blade. Patient has pressure in his neck, 7 out of 10, rating to the back right shoulder no history of AR however has had a CABG and quad bypass. Patient states that he has had pain associated with diaphoresis and nausea. Pt complaint: chest pain Onset (ago): day(s) (1) Duration: intermittent Onset: during rest Severity: moderate Severity scale (1-10): 7 Quality: aching, heaviness Pain Radiation: RUE, neck, jaw/teeth Improves with: nothing Worsens with: exertion Associated symptoms: Reports: nausea. Denies: vomiting, diaphoresis - Related Data Home Medications Medication Instructions Recorded Confirmed Ferrous Sulfate 325 mg PO DAILY 03/11/15 03/04/17 Lisinopril [Zestril] 10 mg PO DAILY 05/05/15 03/04/17 Metoprolol XL (24 HR) Succ [Toprol 50 mg PO DAILY 05/05/15 03/04/17 Xl] Aspirin [Lo-Dose Aspirin EC] 81 mg PO QAM 03/11/16 03/04/17 Atorvastatin [Lipitor] 40 mg PO HS 03/11/16 03/04/17 Insulin ASPART [Novolog Flexpen] 30 unit SQ TIDWM 03/11/16 03/04/17 Rivaroxaban [Xarelto] 20 mg PO QAM 03/11/16 03/04/17 Albuterol Sulfate [Ventolin Hfa] 2 puff IH Q4H PRN 06/07/16 03/04/17 Insulin Glargine [Lantus] 80 unit SQ BID 11/08/16 08/05/17 Cetirizine HCl 10 mg PO DAILY 01/03/17 03/04/17 Previous Rx's Medication Instructions Recorded Furosemide [Lasix] 60 mg PO BID #60 tablet 01/05/17 Allergies Allergy/AdvReac Type Severity Reaction Status Date / Time No Known Allergies Allergy Verified 01/03/17 12:41 Review of Systems: 10 Point ROS was performed and negative except as per below or as documented in HPI. Constitutional: Denies: fever Eyes: Denies: eye pain ENT: +Neck pain Denies: nasal congestion CV: +chest pain Resp: Denies: cough, hemoptysis GI: Denies: abdominal pain, hematochezia Denies: dysuria, hematuria MSK: back pain, neck pain Denies: extremity pain Skin: Denies: new rashes Neuro: Denies: paresthesias or weakness All systems ED: reviewed and negative except as stated. Review of Systems: As Per HPI Chest Pain PMH - Past Medical History Medical history: Reports: atrial fibrillation, CHF, COPD, coronary artery disease, CVA, diabetes, GERD, hyperlipidemia, hypertension, myocardial infarction, renal disease Surgical history: Reports: coronary bypass (CABG), orthopedic, other (Right hip , right leg surgeries), other (Cataracts) Psychiatric history: Reports: anxiety, depression - Social History Smoking Status: Former smoker Alcohol use: Reports: none Drug use: Reports: none Physical Exam Constitutional: Obese male, tachycardic Eyes: PERRLA, sclera anicteric ENT & Mouth: Neck: normal inspection, neck is supple Resp: CTA bilaterally, no resp distress CV: Tachycardic irregular rhythm no m/g/r GI: normal inspection, soft, no guarding or rigidity Back: normal inspection, no tenderness to palpation Neuro: A&O3, CNII-XII grossly intact, KHAN MSK: no gross deformities, normal ROM UE and LE Skin: on limited exam, skin intact with no rashes or lesions - General Limitations: no limitations General appearance: alert Course Course Narrative: 51-year-old male with CABG, left neck pain and chest pain, concerning for ACS, plan is for chest pain workup, nitroglycerin trial metoprolol for tachycardia and atrial fibrillation, new ischemic changes showing lead [address] depression[address] - Reevaluation(s) Reevaluation #1: Patient with ST depressions, concerning for ACS, troponin was 0.03, nitroglycerin glycerin completely relieved chest pain, CTA showed no evidence of aortic dissection or pulmonary embolus, plan is for admission hospitalist Dr. Mullins accepts Time: 18:05 Vital Signs Temperature 97.5 F L 03/04/17 14:23 Pulse Rate 108 03/04/17 14:23 Respiratory Rate 22 03/04/17 14:23 Blood Pressure 150/88 03/04/17 14:23 O2 Sat by Pulse Oximetry 100 03/04/17 14:23 Temperature 97.9 F 03/04/17 18:03 Pulse Rate 104 03/04/17 18:03 Respiratory Rate 18 03/04/17 18:03 Blood Pressure 151/93 03/04/17 18:03 O2 Sat by Pulse Oximetry 96 03/04/17 18:03 Oxygen Delivery Oxygen Delivery Room Air Chest Pain - MDM Narrative Medical decision making narrative: 51-year-old male with history of CABG chest pain relieved after nitroglycerin, admitted to medicine service heparin withheld even though repeat troponin showed 0.04, this was communicated to the hospitalist, and given that the patient's anticoagulant on Xarelto did receive aspirin, this time we will allow the hospitalist repeat troponin, not heparinize. - Differential Diagnosis Likely: stable angina, st elevation myocardial infraction, costalchondritis, chest pain - Medical Records Medical records reviewed: Yes I reviewed the patient's medical records. - Lab Data Lab results reviewed: Yes I reviewed the patient's lab results. Result diagrams: 03/04/17 18:56 03/04/17 15:25 Lab Results 03/04/17 03/04/17 03/04/17 Range/Units 15:25 15:25 15:25 WBC 10.2 (4.3-11.1) K/mcL RBC 5.11 (4.19-5.50) M/mcL Hgb 12.5 L (12.9-16.9) g/dL Hct 39.8 (37.5-50.1) % MCV 77.9 L (83.0-100.0) fL MCH 24.5 L (28.0-33.3) pg MCHC 31.4 L (31.6-35.5) g/dL RDW 15.9 H (11.5-14.5) % Plt Count 257 (140-400) K/mcL MPV 9.6 (9.4-12.4) fL Immature Gran % 0.4 (0-4) % Seg Neutrophils % 80.4 % Lymphocytes % 11.9 % Monocytes % 6.2 % Eosinophils % 0.8 % Basophils % 0.3 % Neutrophils # 8.2 (1.6-8.9) K/mcL Lymphocytes # 1.2 (0.6-4.6) K/mcL Monocytes # 0.6 (0.0-1.3) K/mcL Eosinophils # 0.1 (0.0-0.6) K/mcL Basophils # 0.0 (0.0-0.2) K/mcL PT 18.5 H (9.4-12.1) Seconds INR 1.7 APTT 38.3 H (26.0-36.0) Seconds Sodium (136-145) mEq/L Potassium (3.5-4.5) mEq/L Chloride (98-109) mEq/L Carbon Dioxide (19-29) mEq/L BUN (8-26) mg/dL Creatinine (0.72-1.25) mg/dL Est GFR ( Amer) (> 60) Est GFR (Non-Af Amer) (> 60) BUN/Creatinine Ratio (6-26) Glucose (70-99) mg/dL Calculated Osmolality (280-300) Calcium (8.6-10.8) mg/dL Troponin I (0-0.03) ng/mL B-Natriuretic Peptide 136 H (0-100) pg/mL 03/04/17 03/04/17 Range/Units 15:25 15:25 WBC (4.3-11.1) K/mcL RBC (4.19-5.50) M/mcL Hgb (12.9-16.9) g/dL Hct (37.5-50.1) % MCV (83.0-100.0) fL MCH (28.0-33.3) pg MCHC (31.6-35.5) g/dL RDW (11.5-14.5) % Plt Count (140-400) K/mcL MPV (9.4-12.4) fL Immature Gran % (0-4) % Seg Neutrophils % % Lymphocytes % % Monocytes % % Eosinophils % % Basophils % % Neutrophils # (1.6-8.9) K/mcL Lymphocytes # (0.6-4.6) K/mcL Monocytes # (0.0-1.3) K/mcL Eosinophils # (0.0-0.6) K/mcL Basophils # (0.0-0.2) K/mcL PT (9.4-12.1) Seconds INR APTT (26.0-36.0) Seconds Sodium 139 (136-145) mEq/L Potassium 4.3 (3.5-4.5) mEq/L Chloride 104 (98-109) mEq/L Carbon Dioxide 25 (19-29) mEq/L BUN 27 H (8-26) mg/dL Creatinine 1.72 H (0.72-1.25) mg/dL Est GFR ( Amer) 51 L (> 60) Est GFR (Non-Af Amer) 42 L (> 60) BUN/Creatinine Ratio 16 (6-26) Glucose 131 H (70-99) mg/dL Calculated Osmolality 295 (280-300) Calcium 9.7 (8.6-10.8) mg/dL Troponin I 0.03 (0-0.03) ng/mL B-Natriuretic Peptide (0-100) pg/mL - Radiology Data Radiology results reviewed: Yes I reviewed the patient's radiology results. Chest X-Ray 03/04/17 14:57 IMPRESSION: No acute cardiopulmonary disease. D/ / Juarez Sue MD / Juarez Sue MD Interpreting Provider: Juarez Sue MD Chest CTA 03/04/17 15:33 IMPRESSION: No evidence of pulmonary embolism. Bronchial wall thickening, may be related to small airway disease or bronchiolitis. Minimal prominence of the main pulmonary artery, may be related to borderline pulmonary hypertension. Moderate atherosclerotic disease of the coronary arteries. D/ / Jaxson Denny MD / Jaxson Denny MD Interpreting Provider: Jaxson Denny MD - EKG Data EKG attestation: Yes I reviewed and interpreted this EKG. Rate: tachycardia Rhythm: A.Fib (114 bpm QRS [address] segment depressions in lead to 3 aVF) ST segment depression in: II, III Interpretation: nonspecific ST-T wave changes, other (Repeat EKG at 1532 shows atrial fibrillation at a ventricular rate of 114, appears regular still some ST depressions in inferior leads.) - Core Measures AMI Core Measures Followed: Yes Heart Score - Score History: Highly Suspicious EKG: Non Specific repolarisation Disturbance Age: 45-65 Risk Factors: Equal/Greater than 3 risk factor or history of atherosclerotic disease Troponin: Less than normal limit HEART Score Total: 6 Attestation Statement - Attestation Attestation: I examined this patient and my medical decision-making was reviewed with the Resident Physician. I agree with the documented findings, disposition and treatment plan as described except to the extent set forth below. In summary 51 -year-old male with atypical chest pain. EKG shows tachycardia with nonspecific ST segment changes. There is concerning findings for ischemia. Cardiac biomarkers were found to be elevated. The patient does appear to be having an NSTEM, aspirin, nitroglycerin administered. The patient had some improvement of pain with nitroglycerin. Metoprolol was given for rate control. The patient be admitted to the hospitalist team for further evaluation. CT scan of the chest shows no evidence of pulmonary embolism or aortic dissection. Greater than 35 minutes of critical care time was spent resuscitating this acutely ill male suffering from an STEMI. He remains in critical condition with high potential for life threatening deterioration. Critical care time was excluding billable procedures.
[2017-03-04] MEDS ORDERED: 0.9 % Sodium Chloride 500 ML IVC ONE (15:23)
[2017-03-04 15:34] LABS: Basophils % 0.3 %; Eosinophils # 0.1 K/mcL (0.0-0.6); Eosinophils % 0.8 %; Hematocrit 39.8 % (37.5-50.1); Hemoglobin 12.5 g/dL (12.9-16.9); Immature Granulocytes % 0.4 % (0-4); Lymphocytes # 1.2 K/mcL (0.6-4.6); Lymphocytes % 11.9 %; Mean Corpuscular HGB Conc 31.4 g/dL (31.6-35.5); Mean Corpuscular Hemoglobin 24.5 pg (28.0-33.3); Mean Corpuscular Volume 77.9 fL (83.0-100.0); Mean Platelet Volume 9.6 fL (9.4-12.4); Monocytes # 0.6 K/mcL (0.0-1.3); Monocytes % 6.2 %; Neutrophils # 8.2 K/mcL (1.6-8.9); Platelet Count 257 K/mcL (140-400); Red Blood Count 5.11 M/mcL (4.19-5.50); Red Cell Distribution Width 15.9 % (11.5-14.5); Segmented Neutrophils % 80.4 %
[2017-03-04 15:38] LABS: INR 1.7; Prothrombin Time 18.5 Seconds (9.4-12.1)
[2017-03-04 15:41] LABS: Activated Partial Thrombo Time 38.3 Seconds (26.0-36.0)
[2017-03-04 15:47] LABS: Calcium 9.7 mg/dL (8.6-10.8); Potassium 4.3 mEq/L (3.5-4.5)
--- NOTE | 2017-03-04 18:20 | Event Note ---
Date of Encounter: 03/04/17 Time of Encounter: 18:15 51 year old male with CABG in 2006, AFib on xarelto presents to the ED with SOB and left sided chest pain. He was found to be in AFlutter with RVR on arrival. He was given metoprolol 5 mg IV with improvement in rate now in 80s. He is slight diastolic CHF decompensation and will give IV lasix. NSTEMI r/o ACS but possible demand ischemia due to A flutter with RVR, CKD. Troponin 0.04. Cardiology consult. He is off pain now. Troponin flat, if increases will start heparin
[2017-03-04] MEDS ORDERED: Ondansetron 4 MG/2 ML VIAL IVP PRN (18:35)
[2017-03-04] MEDS ORDERED: Acetaminophen 325 MG TABLET PO PRN (18:35)
[2017-03-04] MEDS ORDERED: Naloxone 0.4 MG/ML INJ IVP PRN (18:35)
[2017-03-04] MEDS ORDERED: *HR* HYDROcodone/Acet 5/325 mg TABLET PO PRN (18:35)
[2017-03-04] MEDS ORDERED: *HR* Morphine 2 MG/ML SYRINGE IVP PRN (18:35)
[2017-03-04] MEDS ORDERED: D5% in Water 1,000 ML IVC PRN (18:43)
[2017-03-04] MEDS ORDERED: Dextrose Gel 15 GM PO PRN ×2 (18:43)
[2017-03-04] MEDS ORDERED: *HR* Dextrose 50 % in Water (Syg) 50 ML SYRINGE IVP PRN (18:43)
[2017-03-04] MEDS ORDERED: Ipratropium/Albuterol Neb 3 ML IH PRN (18:45)
[2017-03-04] MEDS ORDERED: Heparin 25,000 UNIT/500 ML D5W 25,000 UNIT/500 ML MLS IVC SCH (18:45)
--- NOTE | 2017-03-04 18:53 | Internal Med History&Physical ---
Date of Encounter: 03/04/17 Time of Encounter: 18:00 Assessment and Plan (1) Chest pain Current visit: Yes Status: Acute Patient presents with acute chest pain that he states is left-sided and radiates to the left side of his neck and back to his right shoulder blade. Patient rated his chest pain as a 7 out of 10 on admission to the ED where he was given aspirin and nitroglycerin which he reports helped greatly. Patient has a history of CABG and quadruple bypass in 2006. Patient will be placed on continuous cardiac telemetry with troponins to be trended 2. Will hold patient 's Xarelto and start IV heparin drip. Cardiology consult ordered. Patient to be monitored closely for signs in increased cardiac and/or respiratory distress. Qualifiers: Chest pain type: other chest pain Qualified Code(s): R07.89 - Other chest pain; R07.8 - Other chest pain (2) Acute exacerbation of CHF (congestive heart failure) Current visit: Yes Status: Acute Patient presents with acute exacerbation of congestive heart failure. Upon examination patient has +1 pitting edema bilaterally in lower extremities. Hold patient's by mouth Lasix and administer IVP Lasix 40 mg twice a day. Monitor I&O and daily weight. Fluid restriction diet of 1.5 L daily. Qualifiers: Congestive heart failure type: diastolic Qualified Code(s): I50.33 - Acute on chronic diastolic (congestive) heart failure (3) Elevated troponin Current visit: Yes Status: Acute Patient presents to the ED with initial troponin of 0.03. Second troponin was 0.04. Trend troponin 2. (4) Shortness of breath Current visit: Yes Status: Acute Patient presents with acute shortness of breath related to chest pain and current symptoms. Patient placed on supplemental O2 with titration if SPO2 less than 92% as well as continuous SPO2 monitoring. DuoNeb nebs every 6 ordered when necessary. (5) Dizziness Current visit: Yes Status: Acute Patient presents with dizziness related to his SOB and current chest pain symptoms. He reports becoming dizzy when standing or walking. Orthostatic BPs and vital signs ordered. Patient to be placed as falls precautions/up with assist/bed rest with bedside commode with assist only due to current dizziness and SOB. (6) Atrial fibrillation Current visit: Yes Status: Chronic Patient presents with history of chronic atrial fibrillation. Patient currently has atrial fibrillation with RVR and will be placed on IV heparin drip. Continuous cardiac telemetry. Cardiology consult ordered. Qualifiers: Atrial fibrillation type: chronic Qualified Code(s): I48.2 - Chronic atrial fibrillation (7) Peripheral edema Current visit: Yes Status: Chronic Patient presents with bilateral LE edema with 1+ pitting. Will hold patient's by mouth Lasix and administer IVP Lasix 40 mg twice a day. Will monitor patient 's I&O and daily weight. (8) Chronic kidney disease, stage III (moderate) Current visit: Yes Status: Chronic Patient presents with chronic kidney disease stage III. Patient's current GFR on admission is 42. We will use IV fluids judiciously if necessary. Daily fluid restriction of 1.5 L ordered. Monitor I&O and daily weight. (9) Diabetes Current visit: Yes Status: Chronic Patient presents with history of chronic diabetes with insulin dependency. Continue patient's insulin as well as low-dose correction insulin sliding scale and hypoglycemic protocol. Blood glucose monitoring before meals at bedtime. A1c ordered. 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 IV heparin drip to be administered. Internal Medicine - H&P: HPI Chief complaint: Chest pain/SOB Admitted From: Emergency Dept Plans for Post Hospital Care: Home History of present illness: Mr. Mercedse is a 51 year old male who presents from the ED with chief complaint of chest pain with radiation to the left side of his neck as well as the right shoulder blade. Upon admission to the ED patient was found to be in A. fib flutter with RVR. He rated his pain a 7 out of 10 upon arrival. Patient was given aspirin and nitroglycerin in the ED which he reported as helping take the pain away. Patient also reports shortness of breath as well as dizziness when standing. Mr. logan has a history of CABG with quadruple bypass in 2006. Patient's medical history includes chronic atrial fibrillation, CHF, COPD, CAD, CVA, diabetes with insulin dependency, GERD, HLD, HTN, DC, and renal disease. Cardiology consult ordered. Will hold patient's Xarelto and start IV heparin drip. We will trend troponins 2 and patient will be placed on continuous cardiac telemetry with supplemental O2 and SPO2 monitoring. Due to mild exacerbation of CHF and 1+ bilateral pitting edema of patient's LEs, IVP Lasix 40 mg twice a day ordered. Nitroglycerin when necessary ordered and will continue patient's metoprolol for BP control. Patient is at high risk for cardiac event based on current symptomology and risk factors and he will replaced his inpatient status and monitored closely for increasing signs of cardiac and/or respiratory distress. Due to dizziness, orthostatic BPs and vital signs ordered and patient to be placed on safety precautions due to falls risk. Time spent with patient greater than 30 minutes Past Med Surg Social Fam HX - Past Medical History Medical history: atrial fibrillation, CHF, COPD, coronary artery disease, CVA, diabetes, GERD, hyperlipidemia, hypertension, myocardial infarction, renal disease Psychiatric history: anxiety, depression - Past Surgical History Surgical History: coronary bypass (CABG), orthopedic, other (Right hip, right leg surgeries), other (Cataracts bilaterally) - Social History Smoking Status: Former smoker Smokeless Tobacco Status: No Alcohol use: none Drug use: none Current living situation: Home Activity Level: Independent ambulation Recent Out of Country Travel Within the Last 8 Weeks: No Exposure or Possible Exposure to Illness During Travel: No - Family History Mother Race: Family Member Ethnicity: Non- Living Status: Age at : 56 Cause of : CHF Hx Family Cardiac Disorders: Yes (HD, HTN, CHF) Father Race: Family Member Ethnicity: Non- Living Status: Age at : 82 Cause of : DC Hx Family Cardiac Disorders: Yes (HD, HTN, DC) Brother Race: Family Member Ethnicity: Non- Living Status: Still Living Hx Family Cardiac Disorders: Yes (HD) Sister Race: Family Member Ethnicity: Non- Living Status: Still Living Hx Family Endocrine Disorder: Yes (T2DM) Internal Medicine - H&P: Meds Ferrous Sulfate 325 mg PO DAILY 03/11/15 [History] Lisinopril [Zestril] 10 mg PO DAILY 05/05/15 [History] Metoprolol XL (24 HR) Succ [Toprol Xl] 50 mg PO DAILY 05/05/15 [History] Aspirin [Lo-Dose Aspirin EC] 81 mg PO QAM 03/11/16 [History] Atorvastatin [Lipitor] 40 mg PO HS 03/11/16 [History] Insulin ASPART [Novolog Flexpen] 30 unit SQ TIDWM 03/11/16 [History] Rivaroxaban [Xarelto] 20 mg PO QAM 03/11/16 [History] Albuterol Sulfate [Ventolin Hfa] 2 puff IH Q4H PRN 06/07/16 [History] Insulin Glargine [Lantus] 80 unit SQ BID 06/07/16 [History] Cetirizine HCl 10 mg PO DAILY 01/03/17 [History] Furosemide [Lasix] 60 mg PO BID #60 tablet 01/05/17 [Rx] Allergies No Known Allergies Allergy (Verified 01/03/17 12:41) All Systems PM: A 10-system review of systems was performed and is negative for pertinent findings except as documented above in the HPI. - Constitutional Constitutional: no chills, no fever(s), no night sweats - EENT Eyes: no change in vision, no discharge, no pain, no photophobia Ears: no ear discharge, no ear pain, no tinnitus Nose, mouth and throat: no dysphagia, no nasal discharge, no neck pain, no sore throat - Breasts Breasts: as per HPI - Cardiovascular Cardiovascular ROS IM: as per HPI, chest pain, dyspnea, dyspnea on exertion, edema (Bilateral 1+ pedal edema), lightheadedness - Respiratory Respiratory: as per HPI, dyspnea, dyspnea on exertion, wheezing - Gastrointestinal Gastrointestinal: as per HPI, nausea, no abdominal pain, no diarrhea, no hematemesis, no hematochezia, no melena, no vomiting - Genitourinary Genitourinary ROS male: as per HPI - Musculoskeletal Musculoskeletal ROS IM: no numbness, no tingling - Integumentary Integumentary IM: no rash, no unusual bruising - Neurological Neurological ROS: no confusion, no convulsions, no focal weakness, no numbness, no tingling, no tremor(s) - Psychiatric Psychiatric: as per HPI - Endocrine Endocrine IM: as per HPI - Hematologic/Lymphatic Hematologic/Lymphatic: no easy bruising - Allergic/Immunologic Allergic/Immunologic: as per HPI - Constitutional Vitals: Temp Pulse Resp BP Pulse Ox 97.9 F 104 18 151/93 96 03/04/17 18:03 03/04/17 18:03 03/04/17 18:03 03/04/17 18:03 03/04/17 18:03 General appearance: Present: cooperative, A&O X 3, morbidly obese, pleasant, no acute distress, answers questions appropriately - Head Head exam: Present: atraumatic, normocephalic - Eye Eye exam: Present: PERRL, conjuntiva pink, sclera anicteric Pupils: Present: PERRL - ENT ENT exam: Present: normal exam, normal external ear exam - Neck Neck exam general surgery: Present: normal inspection, supple, trachea midline. Absent: lymphadenopathy - Respiratory Respiratory exam: Present: accessory muscle use, CTAB, wheezes. Absent: rales, rhonchi - Cardiovascular Cardiovascular exam: Present: irregular rhythm - GI/Abdominal GI/Abdominal exam: Present: normal bowel sounds, soft, no peritoneal signs. Absent: distended, tenderness - Rectal Rectal exam: Present: deferred - Additional comments: exam deferred. - Extremities Exam Extremities exam: Present: pedal edema (1+ bilaterally), warm, radial pulses palpable and symetrical - Back Exam Back exam: Present: normal inspection - Neurological Exam Neurological exam: Present: CN II-XII intact, oriented X3, no focal deficits. Absent: pronater drift, facial droop, speech deficit - Psychiatric Psychiatric exam: Present: normal affect, normal mood - Skin Skin exam: Present: dry, intact Internal Med - H&P Results - Labs CBC & Chem 7: 03/04/17 15:25 03/04/17 15:25 Labs: Cardiac Enzymes 03/04/17 Range/Units 17:00 Troponin I 0.04 H* (0-0.03) ng/mL - EKG Data Prior EKG available for review: yes When compared to previous EKG: there is no significant change Interpretation IM: suggestive of ischemia EKG comments: 03/04/17 19:08 EKG dated 03/01/17 shows atrial flutter/tachycardia with RVR, left ventricular hypertrophy and STT changes, and poor R-wave progression. EKG dated 03/04/17 shows atrial flutter/tachycardia with RVR, intraventricular conduction delay, and probable lateral myocardial infarction of indeterminate age. - Diagnostic Studies Chest x-ray Additional comments: Impressions Chest X-Ray 03/04/17 14:57 IMPRESSION: No acute cardiopulmonary disease. D/ / Juarez Sue MD / Juarez Sue MD Interpreting Provider: Juarez Sue MD Other Images Additional comments: Impressions Chest CTA 03/04/17 15:33 IMPRESSION: No evidence of pulmonary embolism. Bronchial wall thickening, may be related to small airway disease or bronchiolitis. Minimal prominence of the main pulmonary artery, may be related to borderline pulmonary hypertension. Moderate atherosclerotic disease of the coronary arteries. D/ / Jaxson Denny MD / Jaxson Denny MD Interpreting Provider: Jaxson Denny MD
[2017-03-04] MEDS ORDERED: Nitroglycerin 0.4 MG TAB.SUBL SL PRN (18:54)
[2017-03-04] MEDS ORDERED: *HR* Heparin 5,000 UNIT/ML VIAL IVP PRN ×3 (18:57)
[2017-03-04 19:15] LABS: INR 1.4; Prothrombin Time 15.1 Seconds (9.4-12.1)
[2017-03-04 19:17] LABS: Activated Partial Thrombo Time 31.8 Seconds (26.0-36.0)
[2017-03-04 19:39] LABS: Hematocrit 41.3 % (37.5-50.1); Hemoglobin 12.6 g/dL (12.9-16.9); Mean Corpuscular HGB Conc 30.5 g/dL (31.6-35.5); Mean Corpuscular Volume 78.5 fL (83.0-100.0); Mean Platelet Volume 9.8 fL (9.4-12.4); Platelet Count 281 K/mcL (140-400); Red Blood Count 5.26 M/mcL (4.19-5.50); Red Cell Distribution Width 16.2 % (11.5-14.5)
[2017-03-04] MEDS ORDERED: NON-FORMULARY MEDICATION 1 EACH EACH (Insulin Glargine [Lantus] 60 UNIT) SQ SCH (21:00)
[2017-03-04] MEDS: Insulin LISPRO 300 UNITS/3 ML VIAL SQ SCH (21:02)
[2017-03-04] MEDS: Insulin DETEMIR 100 UNIT/ML X5UNITS SQ SCH (21:02)
[2017-03-04] MEDS: Furosemide 40 MG/4 ML VIAL IVP SCH (21:02)
[2017-03-05 02:48] LABS: Basophils % 0.3 %; Eosinophils # 0.2 K/mcL (0.0-0.6); Eosinophils % 1.7 %; Hematocrit 38.7 % (37.5-50.1); Hemoglobin 11.8 g/dL (12.9-16.9); Immature Granulocytes % 0.9 % (0-4); Immature Platelets 2.3 % (1.1-6.1); Lymphocytes # 1.9 K/mcL (0.6-4.6); Lymphocytes % 16.5 %; Mean Corpuscular HGB Conc 30.5 g/dL (31.6-35.5); Mean Corpuscular Hemoglobin 24.2 pg (28.0-33.3); Mean Corpuscular Volume 79.5 fL (83.0-100.0); Mean Platelet Volume 9.6 fL (9.4-12.4); Monocytes # 0.8 K/mcL (0.0-1.3); Monocytes % 6.8 %; Neutrophils # 8.5 K/mcL (1.6-8.9); Platelet Count 257 K/mcL (140-400); Red Blood Count 4.87 M/mcL (4.19-5.50); Red Cell Distribution Width 16.3 % (11.5-14.5); Segmented Neutrophils % 73.8 %
[2017-03-05 03:04] LABS: Calcium 9.4 mg/dL (8.6-10.8); Chol/HDL Ratio 4.2 (0-4.9); Magnesium 2.2 mg/dL (1.6-2.6); Potassium 4.5 mEq/L (3.5-4.5)
[2017-03-05] MEDS: Loratadine 10 MG TABLET PO SCH (08:34)
[2017-03-05] MEDS: Aspirin Enteric Coated 81 MG Tablet PO SCH (08:34)
[2017-03-05] MEDS: Pantoprazole 40 MG VIAL IVP SCH (08:34)
[2017-03-05] MEDS: Furosemide 40 MG/4 ML VIAL IVP SCH ×2 (08:35→16:38)
[2017-03-05] MEDS: Metoprolol XL (24 HR) Succ 50 MG TAB.ER.24H PO SCH (08:36)
[2017-03-05] MEDS: Insulin LISPRO 300 UNITS/3 ML VIAL SQ SCH ×7 (08:37→22:08)
[2017-03-05] MEDS: Insulin DETEMIR 100 UNIT/ML X5UNITS SQ SCH ×2 (08:44→22:07)
[2017-03-05] MEDS ORDERED: Heparin 25,000 UNIT/500 ML D5W 25,000 UNIT/500 ML MLS IVC SCH (09:00)
[2017-03-05] MEDS ORDERED: *HR* Heparin 5,000 UNIT/ML VIAL IVP PRN ×3 (09:00)
--- NOTE | 2017-03-05 09:24 | Cardiology Consult Note ---
Date of Encounter: 03/05/17 Time of Encounter: 09:22 Assessment and Plan (1) Chest pain Current Visit: Yes Status: Acute Intermittent chest pain started 2-3 days ago, radiated to left neck yesterday. Relief with ASA and nitro in ED. Denies chest pain this AM. No significant EKG changes. Borderline troponins, 0.03, 0.04 x 3. Echo 12/2016 EF preserved. LHC in 2012 showed patent 3/3 bypass grafts. Discuss[address] with Dr. Volodymyr Peralta. Given pt's size and hx of CABG, stress test would likely not be very beneficial. Will attempt medical mangement first with addition of Imdur 30mg daily. If continued recurrent chest pain will need to consider LHC. Hold Xarelto tonight. Re-evaluate in AM. Check limited echo. Qualifiers: Chest pain type: other chest pain Qualified Code(s): R07.89 - Other chest pain; R07.8 - Other chest pain (2) Atrial fibrillation Current Visit: Yes Status: Chronic Known hx of A-Fib. Presented in A-Fib RVR HR 114, currently 110s. Will increase Toprol XL to 100mg daily and continue to monitor. Anticoagulated on Xarelto, currently on hold due to possible ischemic evaluation. Hold tonight. Does not need heparin bridging, discussed with Dr. Volodymyr Peralta. Qualifiers: Atrial fibrillation type: unspecified Qualified Code(s): I48.91 - Unspecified atrial fibrillation (3) Chronic diastolic CHF (congestive heart failure), NYHA class 2 Current Visit: Yes Status: Chronic No acute exacerbation. Switch IV lasix to home PO dose of 60mg BID. Echo 12/2016 EF preserved. (4) Elevated troponin Current Visit: Yes Status: Acute Borderline--0.03, 0.04 x 4 in setting of CKD and A-Fib RVR, likely demand ischemia, nondiagnostic for ACS. Check limited echo. Chest pain as above. Attempt to medically manage, but if recurrence of chest pain, consider LHC. (5) CAD (coronary artery disease) Current Visit: Yes Status: Chronic Known hx of 3V CABG and PCI. ASA, statin, BB. Start nitrate. Qualifiers: Coronary Disease-Associated Artery/Lesion type: unspecified vessel or lesion type [place] vs. transplanted heart: [place] heart Associated angina: angina presence unspecified Qualified Code(s): I25.10 - Atherosclerotic heart disease of [place] coronary artery without angina pectoris Discussion w patient/family: The assessment and plan as outlined above was discussed with the patient and/or family members who expressed understanding and agreement. All questions were answered. Thank you for involving us in the care of your patient. Please call with any questions. I will discuss all the above with Dr. Volodymyr Peralta and make changes as necessary. History of Present Illness Consult date: 03/05/17 Requesting physician: Miles Rosales Consult reason: Chest pain, elevated troponin Chief complaint: chest pain History of present illness: Mr. Mercedes is a 51 year old male with a history of 3V CABG, prior PCI, diastolic CHF, atrial fibrillation on xarelto, COPD, MOSES on c-pap, CKD, HTN, HLD, CVA and diabetes. He presents with chief complaint of chest pain that initially started 2-3 days ago, intermittent, was midsternal, achy. Yesterday the pain radiated to the left side of his neck prompting him to come to ED. It was accompanied by palpitations, diaphoresis and bilateral hand tingling. He also had palpitations and has exertional dyspnea. He reports ASA and nitro helped the pain in the ED. He is currently chest pain free and reports feeling better. Found to be in A- Fib RVR on presentation, HR 114, currently 110s. Troponins 0.03, 0.04 x 3. Cardiology consulted for further recommendations. Prior CV testing: TTE 01/03/17: LVEF 55%, Normal left ventricular size and systolic function, Indeterminate left ventricular diastolic function, Atypical septal motion, Dilated RV with normal function. Not all segments were well visualized, Mild- moderate tricuspid regurgitation, Moderate pulmonary hypertension. ODESSA/DCCV 03/11/15: LVEF 55-60%, no significant valvular disease, no evidence of LA thrombus, following the ODESSA he was successfully DC cardioverted to normal sinus rhythm. 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 Past Med Surg Social Fam HX - Past Medical History Medical history: atrial fibrillation, CHF, COPD, coronary artery disease, CVA, diabetes, GERD, hyperlipidemia, hypertension, myocardial infarction, renal disease Psychiatric history: anxiety, depression - Past Surgical History Surgical History: coronary bypass (CABG), orthopedic, other (Right hip, right leg surgeries), other (Cataracts) - Social History Smoking Status: Former smoker Smokeless Tobacco Status: No Alcohol use: none Drug use: none - Family History Mother Race: Family Member Ethnicity: Non- Living Status: Age at : 56 Cause of : CHF Hx Family Cardiac Disorders: Yes (HD, HTN, CHF) Hx Family Respiratory Disorders: Yes (COPD) Father Race: Family Member Ethnicity: Non- Living Status: Age at : 82 Cause of : [place] Hx Family Cardiac Disorders: Yes (HD, HTN, [place]) Brother Race: Family Member Ethnicity: Non- Living Status: Still Living Hx Family Cardiac Disorders: Yes (HD) Hx Family Respiratory Disorders: Yes (COPD) Sister Race: Family Member Ethnicity: Non- Living Status: Still Living Hx Family Endocrine Disorder: Yes (T2DM) Medications and Allergies Ferrous Sulfate 325 mg PO DAILY 03/11/15 [History] Lisinopril [Zestril] 10 mg PO DAILY 05/05/15 [History] Metoprolol XL (24 HR) Succ [Toprol Xl] 50 mg PO DAILY 05/05/15 [History] Aspirin [Lo-Dose Aspirin EC] 81 mg PO QAM 03/11/16 [History] Atorvastatin [Lipitor] 40 mg PO HS 03/11/16 [History] Insulin ASPART [Novolog Flexpen] 30 unit SQ TIDWM 03/11/16 [History] Rivaroxaban [Xarelto] 20 mg PO QAM 03/11/16 [History] Albuterol Sulfate [Ventolin Hfa] 2 puff IH Q4H PRN 06/07/16 [History] Insulin Glargine [Lantus] 80 unit SQ BID 06/07/16 [History] Cetirizine HCl 10 mg PO DAILY 01/03/17 [History] Furosemide [Lasix] 60 mg PO BID #60 tablet 01/05/17 [Rx] Allergies No Known Allergies Allergy (Verified 01/03/17 12:41) All Systems Review: A 10-system review of systems was performed and is negative for pertinent findings except as documented above in the HPI. - Cardiovascular Cardiovascular: as per HPI, chest pain at rest, chest pain with exertion, diaphoresis, dyspnea on exertion, radiating jaw, neck or arm pain, leg edema, palpitations - Respiratory Respiratory: dyspnea Physical Examination Vital Signs, Last 4 Hours Temp Pulse Resp BP Pulse Ox 03/05/17 08:52 110 16 129/74 97 03/05/17 07:52 97.6 F 115 18 129/68 96 Vital Signs Temp Pulse Pulse Pulse Pulse Resp BP 03/05/17 08:52 110 16 129/74 03/05/17 07:52 97.6 F 115 18 129/68 03/05/17 03:56 98.1 F 110 18 121/74 03/04/17 23:50 98.1 F 106 106 114 116 18 120/66 03/04/17 18:03 97.9 F 104 18 151/93 03/04/17 17:03 18 119/74 03/04/17 16:15 89 18 133/90 03/04/17 15:40 89 18 120/67 03/04/17 15:24 116 18 112/59 03/04/17 15:15 114 18 123/84 03/04/17 14:23 97.5 F L 108 22 150/88 BP BP BP Pulse Ox 03/05/17 08:52 97 03/05/17 07:52 96 03/05/17 03:56 98 03/04/17 23:50 120/66 117/75 116/76 96 03/04/17 18:03 96 03/04/17 17:03 03/04/17 16:15 100 03/04/17 15:40 99 03/04/17 15:24 97 03/04/17 15:15 98 03/04/17 14:23 100 Intake and Output 03/04/17 03/05/17 03/05/17 23:59 07:59 15:59 Intake Total 120 / 120 Output Total 1100 / 1100 Balance 120 / 120 -1100 / -1100 Intake: Oral 120 / 120 Output: Urine 1100 / 1100 Other: Stool Size Large Moderate Stool Consistency loose loose liquid Stool Color Brown Brown # Bowel Movements 1 Weight 129.756 kg 125.827 kg Blood Glucose* 84 171 Patient Weight 03/05/17 23:59 Weight 125.827 kg General: Conversant, No Apparent Distress HEENT: Atraumatic, Normocephaly, Mucus Membranes Moist Neck: No JVD, Normal carotid pulses Cardiac: Other (irregularly irregular) Lungs: Normal Breath Sounds, No Wheeze, Rales, Rhonchi Neuro: Alert and responsive, No focal deficits noted Abdomen: Soft, Non-Tender Skin: No rashes noted on visualized skin Musculoskeletal: No Chest Wall Tenderness Extremities: No Clubbing, No Cyanosis, No Edema, Normal Pulses Results 03/05/17 02:18 03/05/17 02:18 Lab Results 03/04/17 03/04/17 03/04/17 18:56 18:56 18:56 WBC 12.0 H Hgb 12.6 L Hct 41.3 Plt Count 281 INR 1.4 APTT 31.8 Sodium Potassium Chloride Carbon Dioxide BUN Creatinine Glucose Calcium Magnesium Troponin I 0.04 H* 03/05/17 03/05/17 03/05/17 02:18 02:18 02:18 WBC 11.6 H Hgb 11.8 L Hct 38.7 Plt Count 257 INR APTT Sodium 139 Potassium 4.5 Chloride 105 Carbon Dioxide 25 BUN 29 H Creatinine 1.94 H Glucose 199 H Calcium 9.4 Magnesium 2.2 Troponin I 0.04 H* Short CBC 03/05/17 03/04/17 03/04/17 Range/Units 02:18 18:56 15:25 WBC 11.6 H 12.0 H 10.2 (4.3-11.1) K/mcL Hgb 11.8 L 12.6 L 12.5 L (12.9-16.9) g/dL Hct 38.7 41.3 39.8 (37.5-50.1) % Plt Count 257 281 257 (140-400) K/mcL Neutrophils # 8.5 8.2 (1.6-8.9) K/mcL BMP 03/05/17 03/04/17 Range/Units 02:18 15:25 Sodium 139 139 (136-145) mEq/L Potassium 4.5 4.3 (3.5-4.5) mEq/L Chloride 105 104 (98-109) mEq/L Carbon Dioxide 25 25 (19-29) mEq/L BUN 29 H 27 H (8-26) mg/dL Creatinine 1.94 H 1.72 H (0.72-1.25) mg/dL Glucose 199 H 131 H (70-99) mg/dL Calcium 9.4 9.7 (8.6-10.8) mg/dL Cardiac Enzymes 03/05/17 03/04/17 03/04/17 Range/Units 02:18 18:56 17:00 Troponin I 0.04 H* 0.04 H* 0.04 H* (0-0.03) ng/mL 03/04/17 Range/Units 15:25 Troponin I 0.03 (0-0.03) ng/mL Impressions Chest X-Ray 03/04/17 14:57 IMPRESSION: No acute cardiopulmonary disease. D/ / Juarez Sue MD / Juarez Sue MD Interpreting Provider: Juarez Sue MD Chest CTA 03/04/17 15:33 IMPRESSION: No evidence of pulmonary embolism. Bronchial wall thickening, may be related to small airway disease or bronchiolitis. Minimal prominence of the main pulmonary artery, may be related to borderline pulmonary hypertension. Moderate atherosclerotic disease of the coronary arteries. D/ / Jaxson Denny MD / Jaxson Denny MD Interpreting Provider: Jaxson Denny MD Active Medications Acetaminophen (Tylenol) 650 mg PO Q6HR PRN PRN Reason: Mild Pain (1-3) Stop: 09/03/17 18:36 Hydrocodone Bitart/Acetaminophen ([place] 5-325 Mg) 1 tab PO Q4HR PRN PRN Reason: Moderate Pain (4-6) Stop: 09/03/17 18:36 Albuterol/Ipratropium (Duoneb) 3 ml IH [id number] PRN PRN Reason: Shortness Of Breath/Wheezing Stop: 09/03/17 18:46 Aspirin (Aspirin Ec) 81 mg PO [facility] Stop: 02/05/18 09:01 Last Admin: 03/05/17 08:34 Dose: 81 mg Atorvastatin Calcium (Lipitor) 40 mg PO HS JACI Stop: 09/03/17 21:01 Last Admin: 03/04/17 21:02 Dose: 40 mg Dextrose/Water (Dextrose 50% (Syg)) 25 ml IVP AD PRN PRN Reason: Hypoglycemia Stop: 09/03/17 18:44 Ferrous Sulfate (Ferrous Sulfate) 325 mg PO DAILY JACI Stop: 09/04/17 09:01 Last Admin: 03/05/17 08:35 Dose: 325 mg Furosemide (Lasix) 40 mg IVP BIDDIURETIC JACI Stop: 09/03/17 18:46 Last Admin: 03/05/17 08:35 Dose: 40 mg Glucagon (Glucagen) 1 mg IM ONCE PRN PRN Reason: Hypoglycemia Stop: 09/03/17 18:44 Glucose (Gluctose) 15 gm PO ONCE PRN PRN Reason: Hypoglycemia Stop: 09/03/17 18:44 Glucose (Gluctose) 30 gm PO ONCE PRN PRN Reason: Hypoglycemia Stop: 09/03/17 18:44 Heparin Sodium (Porcine) (Heparin) 4,000 unit IVP ONCE PRN PRN Reason: Initial bolus Stop: 09/04/17 09:01 Heparin Sodium (Porcine) (Heparin) 4,000 unit IVP Q6HR PRN PRN Reason: SEE COMMENTS Stop: 09/04/17 09:01 Heparin Sodium (Porcine) (Heparin) 2,000 unit IVP Q6H PRN PRN Reason: SEE COMMENTS Stop: 09/04/17 09:01 Dextrose (Dextrose 5%) 1,000 mls @ 100 mls/hr IVC .Q10H PRN PRN Reason: HYPOGLYCEMIA Stop: 09/03/17 18:44 Heparin Sodium/Dextrose (Heparin 25,000 Unit/500 Ml D5w) 25,000 unit in 500 mls @ 19.995 mls/hr IVC .Q24H JACI; 7.705 UNIT/KG/HR PRN Reason: Protocol Stop: 09/04/17 09:01 Insulin Detemir (Levemir) 60 unit SQ BID JACI Stop: 09/03/17 21:01 Last Admin: 03/05/17 08:44 Dose: 60 unit Insulin Human Lispro (Humalog) 20 units SQ TIDWM JACI Stop: 09/04/17 08:01 Last Admin: 03/05/17 08:37 Dose: Not Given Insulin Human Lispro (Humalog) 0 units SQ TIDAC [facility] PRN Reason: Protocol Stop: 09/04/17 07:31 Last Admin: 03/05/17 08:37 Dose: 2 units Insulin Human Lispro (Humalog) 0 units SQ HS [facility] PRN Reason: Protocol Stop: 09/03/17 21:01 Last Admin: 03/04/17 21:02 Dose: Not Given Loratadine (Claritin) 10 mg PO DAILY [facility] Stop: 09/04/17 09:01 Last Admin: 03/05/17 08:34 Dose: 10 mg Metoprolol Succinate (Toprol Xl) 50 mg PO DAILY [facility] Stop: 09/04/17 09:01 Last Admin: 03/05/17 08:36 Dose: 50 mg Morphine Sulfate (Morphine Sulfate) 2 mg IVP Q4HR PRN PRN Reason: Severe Pain (7-10) Stop: 09/03/17 18:36 Naloxone HCl (Narcan) 0.4 mg IVP Q2MIN PRN PRN Reason: Opioid Reversal Stop: 09/03/17 18:36 Nitroglycerin (Nitroglycerin) 0.4 mg SL Q5MIN PRN PRN Reason: Chest Pain Stop: 09/03/17 18:55 Ondansetron HCl (Zofran) 4 mg IVP Q8HR PRN PRN Reason: Nausea And Vomiting Stop: 09/03/17 18:36 Pantoprazole Sodium (Protonix) 40 mg IVP DAILY [facility] Stop: 09/04/17 09:01 Last Admin: 03/05/17 08:34 Dose: 40 mg - Imaging and Cardiology Echo: report reviewed Cardiac cath: report reviewed - EKG Interpretation EKG results cardiology: personally reviewed (A-Fib, HR 114), other (12 hr tele AVG HR 102, A-Fib.) Consult Discharge Plan - Plan Referrals: Billie Van, FLASH WELDER [Primary Care Provider] -
[2017-03-05] MEDS: Isosorbide MONOnitrate (24 HR) 30 MG TAB.ER.24H PO SCH (10:41)
--- NOTE | 2017-03-05 11:20 | Internal Med Progress Note ---
Date of Encounter: 03/05/17 Time of Encounter: 10:25 - Assessment and plan (1) Chest pain Current Visit: Yes Status: Acute Assessment and plan: Pt denies chest pain today. He has been seen by cardiology. He will be medically managed by starting IMdur 30mg po daily and they will recheck in the a.m. His pain was relieved with ntg and asa in the ER. EKG was unchanged from prior. Troponins slightly elevated 0.04 x 3. Pt had echo in December, with preserved EF. [facility] in 2012 showed patent 3/3 bypass grafts. Juan held tonight. Limited echo. Continue telemetry Qualifiers: Chest pain type: other chest pain Qualified Code(s): R07.89 - Other chest pain; R07.8 - Other chest pain (2) Acute exacerbation of CHF (congestive heart failure) Current Visit: Yes Status: Acute Assessment and plan: Cardiology has seen pt. Changed IV lasix to pt's normal home dose of 60mg po BID. No peripheral edema, lungs clear. Monitor I and O Daily weight Qualifiers: Congestive heart failure type: diastolic Qualified Code(s): I50.33 - Acute on chronic diastolic (congestive) heart failure (3) Morbid obesity Current Visit: No Status: Chronic Assessment and plan: Chronic. Lifestyle changes. (4) Diabetes Current Visit: Yes Status: Chronic Assessment and plan: A1c 7.0%. Continue diabetic diet, accuchecks ac/hs, and SSI. 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 Most likely due to BLANKA on chronic CKD. Continue to monitor labs and continue telemetry. (6) Shortness of breath Current Visit: Yes Status: Chronic Assessment and plan: Pt states that he is normally dyspneic on exertion. Pt had SOB above baseline related to chest pain. Continue 02 and titrate to maintain sats >92%. Lungs are clear and pt is in no distress. (7) Peripheral edema Current Visit: Yes Status: Chronic Assessment and plan: Pt with no edema to RLE, +1 non-pitting to LLE. (8) CAD (coronary artery disease) Current Visit: Yes Status: Chronic Assessment and plan: Prior history of 3 vessel CABG and PCI. Continue ASA, statin, BB and pt has been started on Imdur 30mg po daily. Pt denies chest pain currently. Continue telemetry. Cardiology on board, will reassess in the a.m. Qualifiers: Coronary Disease-Associated Artery/Lesion type: unspecified vessel or lesion type [place] vs. transplanted heart: [place] heart Associated angina: angina presence unspecified Qualified Code(s): I25.10 - Atherosclerotic heart disease of [place] coronary artery without angina pectoris (9) Chronic kidney disease, stage III (moderate) Current Visit: Yes Status: Chronic Assessment and plan: Renal function appears to be at baseline for pt. Monitor labs and avoid nephrotoxins and NSAIDs. (10) DVT prophylaxis Current Visit: Yes Status: Acute Assessment and plan: Heparin SQ - Subjective Interval history: Pt seen and assessed at 1025. He is alert and awake, oriented. He denies chest pain, sob, headache, n/v or blurred vision. Pt reports onset of chest/neck pain 2-3 days ago and reports worsening CHF. He is unable to do daily weights due to a problem with his scale at home. - Constitutional Vitals: Temp Pulse Resp BP Pulse Ox 97.6 F 110 16 129/74 97 03/05/17 07:52 03/05/17 08:52 03/05/17 08:52 03/05/17 08:52 03/05/17 08:52 General appearance: Present: cooperative, A&O X 3, morbidly obese, pleasant, no acute distress, answers questions appropriately Internal Medicine: Result - Labs CBC & Chem 7: 03/05/17 02:18 03/05/17 02:18 Labs: Short CBC 03/04/17 03/05/17 Range/Units 18:56 02:18 WBC 12.0 H 11.6 H (4.3-11.1) K/mcL Hgb 12.6 L 11.8 L (12.9-16.9) g/dL Hct 41.3 38.7 (37.5-50.1) % Plt Count 281 257 (140-400) K/mcL Neutrophils # 8.5 (1.6-8.9) K/mcL BMP 03/05/17 02:18 Sodium 139 Potassium 4.5 Chloride 105 Carbon Dioxide 25 BUN 29 H Creatinine 1.94 H Glucose 199 H Calcium 9.4 Cardiac Enzymes 03/04/17 03/05/17 Range/Units 18:56 02:18 Troponin I 0.04 H* 0.04 H* (0-0.03) ng/mL - ABG Interpretation ABG results: PT/INR, D-dimer PT 15.1 Seconds (9.4-12.1) H 03/04/17 18:56 Consult Discharge Plan - Plan Referrals: Billie Van, [employer]OTECH[employer] FI[employer] TECHNICIAN [Primary Care Provider] -
[2017-03-05] MEDS ORDERED: Perflutren Lipid Microsphere 1.3 ML in 0.9 % Sodium Chloride 8.7 ML IVP ONE (11:50)
[2017-03-05] MEDS ORDERED: Perflutren Lipid Microsphere 2 ML VIAL ONE (11:53)
[2017-03-05] MEDS: *HR* Heparin 5,000 UNIT/ML VIAL SQ SCH (16:39)
[2017-03-06 04:11] LABS: Basophils % 0.3 %; Eosinophils # 0.2 K/mcL (0.0-0.6); Hematocrit 39.8 % (37.5-50.1); Hemoglobin 12.2 g/dL (12.9-16.9); Immature Granulocytes % 0.5 % (0-4); Lymphocytes # 1.6 K/mcL (0.6-4.6); Lymphocytes % 15.2 %; Mean Corpuscular HGB Conc 30.7 g/dL (31.6-35.5); Mean Corpuscular Hemoglobin 24.1 pg (28.0-33.3); Mean Corpuscular Volume 78.5 fL (83.0-100.0); Mean Platelet Volume 9.5 fL (9.4-12.4); Monocytes # 0.7 K/mcL (0.0-1.3); Monocytes % 6.4 %; Neutrophils # 8.1 K/mcL (1.6-8.9); Platelet Count 246 K/mcL (140-400); Red Blood Count 5.07 M/mcL (4.19-5.50); Red Cell Distribution Width 16.1 % (11.5-14.5); Segmented Neutrophils % 75.6 %
[2017-03-06 04:34] LABS: Calcium 9.3 mg/dL (8.6-10.8); Potassium 4.2 mEq/L (3.5-4.5)
[2017-03-06] MEDS: *HR* Heparin 5,000 UNIT/ML VIAL SQ SCH (06:10)
[2017-03-06] MEDS: Insulin LISPRO 300 UNITS/3 ML VIAL SQ SCH ×7 (08:07→21:05)
[2017-03-06] MEDS: Loratadine 10 MG TABLET PO SCH (08:10)
[2017-03-06] MEDS: Furosemide 40 MG/4 ML VIAL IVP SCH (08:10)
[2017-03-06] MEDS: Pantoprazole 40 MG VIAL IVP SCH (08:10)
[2017-03-06] MEDS: Aspirin Enteric Coated 81 MG Tablet PO SCH (08:10)
[2017-03-06] MEDS: Isosorbide MONOnitrate (24 HR) 30 MG TAB.ER.24H PO SCH (08:10)
[2017-03-06] MEDS: Metoprolol XL (24 HR) Succ 50 MG TAB.ER.24H PO SCH (08:10)
[2017-03-06] MEDS: Insulin DETEMIR 100 UNIT/ML X5UNITS SQ SCH ×2 (08:19→21:08)
[2017-03-06] MEDS ORDERED: Metoprolol XL (24 HR) Succ 50 MG TAB.ER.24H PO ONE (08:40)
--- NOTE | 2017-03-06 08:51 | Cardiology Progress Note ---
Date of Encounter: 03/06/17 Time of Encounter: 08:49 Assessment and Plan (1) Chest pain Current Visit: Yes Status: Acute Intermittent chest pain started 2-3 days ago, radiated to left neck prior to admission. Relief with ASA and nitro in ED. Denies any recurrent chest pain. No significant EKG changes. Borderline troponins, 0.03, 0.04 x 3. Echo EF preserved. LHC in 2013 showed patent 3/3 bypass grafts. Added Imdur yesterday, 30 mg daily. No recurrent chest pain. No further cardiac work-up warranted. Recommend outpt follow-up in 2 weeks. Will coordinate. Qualifiers: Chest pain type: other chest pain Qualified Code(s): R07.89 - Other chest pain; R07.8 - Other chest pain (2) Atrial fibrillation Current Visit: Yes Status: Chronic Known hx of A-Fib. Presented in A-Fib RVR HR 114, currently 110s. Will increase Toprol XL to 100mg daily and continue to monitor. Anticoagulated on Xarelto, held last night due to possible ischemic evaluation. Will resume now that pt is chest pain free. Give extra dose of 50mg Toprol XL now. Will re-evaluate HR in a couple hours and if rate controlled will sign off. Qualifiers: Atrial fibrillation type: unspecified Qualified Code(s): I48.91 - Unspecified atrial fibrillation (3) Chronic diastolic CHF (congestive heart failure), NYHA class 2 Current Visit: Yes Status: Chronic No acute exacerbation. Switch IV lasix to home PO dose of 60mg BID given that renal function has worsened. Echo EF preserved. (4) Elevated troponin Current Visit: Yes Status: Acute Borderline--0.03, 0.04 x 4 in setting of CKD and A-Fib RVR, likely demand ischemia, nondiagnostic for ACS. Chest pain as above. No recurrence with addition of Imdur. Echo EF preserved. (5) CAD (coronary artery disease) Current Visit: Yes Status: Chronic Known hx of 3V CABG and PCI. ASA, statin, BB. Added Imdur yesterday. Qualifiers: Coronary Disease-Associated Artery/Lesion type: unspecified vessel or lesion type [place] vs. transplanted heart: [place] heart Associated angina: angina presence unspecified Qualified Code(s): I25.10 - Atherosclerotic heart disease of [place] coronary artery without angina pectoris Discussion w patient/family: The assessment and plan as outlined above was discussed with the patient and/or family members who expressed understanding and agreement. All questions were answered. Thank you for involving us in the care of your patient. Please call with any questions. I will discuss all the above with Dr. Bro and make changes as necessary. Subjective Principal diagnosis: Chest pain, A-Fib Interval history: Pt denies any recurrent chest pain, reports feeling well. No acute complaints. Echo EF 60-65%. Objective Vital Signs, Last 4 Hours Temp Pulse Resp BP Pulse Ox 03/06/17 07:00 94 03/06/17 06:48 98.0 F 111 14 128/78 94 Vital Signs Temp Pulse Resp BP Pulse Ox 03/06/17 07:00 94 03/06/17 06:48 98.0 F 111 14 128/78 94 03/06/17 03:00 98.4 F 110 17 116/72 99 03/05/17 23:00 98.4 F 73 18 124/71 98 03/05/17 19:00 98.4 F 112 18 134/81 98 03/05/17 15:52 98.7 F 105 16 105/57 97 03/05/17 11:32 97.9 F 107 18 121/71 97 03/05/17 08:52 110 16 129/74 97 Intake and Output 03/05/17 03/06/17 03/06/17 23:59 07:59 15:59 Intake Total 240 / 240 Output Total 700 / 700 Balance 240 / 240 -700 / -700 Intake: Oral 240 / 240 Output: Urine 700 / 700 Other: Meal Dinner Percent of Meal Consumed 100% Blood Glucose* 172 183 General: Conversant, No Apparent Distress HEENT: Atraumatic, Normocephaly, Mucus Membranes Moist Neck: No JVD, Normal carotid pulses Cardiac: Other (irregularly irregular) Lungs: Normal Breath Sounds, No Wheeze, Rales, Rhonchi Neuro: Alert and responsive, No focal deficits noted Abdomen: Soft, Non-Tender Skin: No rashes noted on visualized skin Musculoskeletal: No Chest Wall Tenderness Extremities: No Clubbing, No Cyanosis, No Edema, Normal Pulses Results 03/06/17 03:46 03/06/17 03:46 Lab Results 03/06/17 03/06/17 03:46 03:46 WBC 10.7 Hgb 12.2 L Hct 39.8 Plt Count 246 Sodium 138 Potassium 4.2 Chloride 103 Carbon Dioxide 27 BUN 36 H Creatinine 2.14 H Glucose 158 H Calcium 9.3 Short CBC 03/06/17 Range/Units 03:46 WBC 10.7 (4.3-11.1) K/mcL Hgb 12.2 L (12.9-16.9) g/dL Hct 39.8 (37.5-50.1) % Plt Count 246 (140-400) K/mcL Neutrophils # 8.1 (1.6-8.9) K/mcL BMP 03/06/17 Range/Units 03:46 Sodium 138 (136-145) mEq/L Potassium 4.2 (3.5-4.5) mEq/L Chloride 103 (98-109) mEq/L Carbon Dioxide 27 (19-29) mEq/L BUN 36 H (8-26) mg/dL Creatinine 2.14 H (0.72-1.25) mg/dL Glucose 158 H (70-99) mg/dL Calcium 9.3 (8.6-10.8) mg/dL Active Medications Acetaminophen (Tylenol) 650 mg PO Q6HR PRN PRN Reason: Mild Pain (1-3) Stop: 09/03/17 18:36 Hydrocodone Bitart/Acetaminophen ([place] 5-325 Mg) 1 tab PO Q4HR PRN PRN Reason: Moderate Pain (4-6) Stop: 09/03/17 18:36 Albuterol/Ipratropium (Duoneb) 3 ml IH [id number] PRN PRN Reason: Shortness Of Breath/Wheezing Stop: 09/03/17 18:46 Aspirin (Aspirin Ec) 81 mg PO QAM [facility] Stop: 09/04/17 09:01 Last Admin: 03/06/17 08:10 Dose: 81 mg Atorvastatin Calcium (Lipitor) 40 mg PO HS [facility] Stop: 09/03/17 21:01 Last Admin: 03/05/17 22:10 Dose: 40 mg Dextrose/Water (Dextrose 50% (Syg)) 25 ml IVP AD PRN PRN Reason: Hypoglycemia Stop: 09/03/17 18:44 Ferrous Sulfate (Ferrous Sulfate) 325 mg PO DAILY [facility] Stop: 09/04/17 09:01 Last Admin: 03/06/17 08:10 Dose: 325 mg Furosemide (Lasix) 40 mg IVP BIDDIURETIC [facility] Stop: 09/03/17 18:46 Last Admin: 03/06/17 08:10 Dose: 40 mg Glucagon (Glucagen) 1 mg IM ONCE PRN PRN Reason: Hypoglycemia Stop: 09/03/17 18:44 Glucose (Gluctose) 15 gm PO ONCE PRN PRN Reason: Hypoglycemia Stop: 09/03/17 18:44 Glucose (Gluctose) 30 gm PO ONCE PRN PRN Reason: Hypoglycemia Stop: 09/03/17 18:44 Heparin Sodium (Porcine) (Heparin) 5,000 unit SQ Q12HCO [facility] Stop: 09/04/17 18:01 Last Admin: 03/06/17 06:10 Dose: 5,000 unit Dextrose (Dextrose 5%) 1,000 mls @ 100 mls/hr IVC .Q10H PRN PRN Reason: HYPOGLYCEMIA Stop: 09/03/17 18:44 Insulin Detemir (Levemir) 60 unit SQ BID [facility] Stop: 09/03/17 21:01 Last Admin: 03/06/17 08:19 Dose: Not Given Insulin Human Lispro (Humalog) 20 units SQ TIDWM [facility] Stop: 09/04/17 08:01 Last Admin: 03/06/17 08:07 Dose: Not Given Insulin Human Lispro (Humalog) 0 units SQ TIDAC [facility] PRN Reason: Protocol Stop: 09/04/17 07:31 Last Admin: 03/06/17 08:07 Dose: Not Given Insulin Human Lispro (Humalog) 0 units SQ HS [facility] PRN Reason: Protocol Stop: 09/03/17 21:01 Last Admin: 03/05/17 22:08 Dose: Not Given Isosorbide Mononitrate (Imdur) 30 mg PO DAILY [facility] Stop: 09/04/17 10:01 Last Admin: 03/06/17 08:10 Dose: 30 mg Loratadine (Claritin) 10 mg PO DAILY [facility] Stop: 09/04/17 09:01 Last Admin: 03/06/17 08:10 Dose: 10 mg Metoprolol Succinate (Toprol Xl) 50 mg PO ONCE ONE Stop: 03/06/17 08:41 Metoprolol Succinate (Toprol Xl) 100 mg PO DAILY [facility] Stop: 09/05/17 09:01 Morphine Sulfate (Morphine Sulfate) 2 mg IVP Q4HR PRN PRN Reason: Severe Pain (7-10) Stop: 09/03/17 18:36 Naloxone HCl (Narcan) 0.4 mg IVP Q2MIN PRN PRN Reason: Opioid Reversal Stop: 09/03/17 18:36 Nitroglycerin (Nitroglycerin) 0.4 mg SL Q5MIN PRN PRN Reason: Chest Pain Stop: 09/03/17 18:55 Ondansetron HCl (Zofran) 4 mg IVP Q8HR PRN PRN Reason: Nausea And Vomiting Stop: 09/03/17 18:36 Pantoprazole Sodium (Protonix) 40 mg IVP DAILY [facility] Stop: 09/04/17 09:01 Last Admin: 03/06/17 08:10 Dose: 40 mg - Imaging and Cardiology Echo: report reviewed - EKG Interpretation EKG results cardiology: other (12 hr tele AVG HR 100, A-Fib) Consult Discharge Plan - Plan Referrals: Billie Van, VP SOFTWARE [Primary Care Provider] -
[2017-03-06] MEDS ORDERED: Metoprolol XL (24 HR) Succ 50 MG TAB.ER.24H PO SCH (09:00)
[2017-03-06] MEDS ORDERED: 0.9 % Sodium Chloride 1,000 ML IVC SCH (09:00)
[2017-03-06] MEDS: *HR* Rivaroxaban 15 MG TABLET PO SCH (10:07)
[2017-03-06] MEDS: Silvasorb 44.4 ML TUBE TP SCH (13:16)
--- NOTE | 2017-03-06 15:16 | Electrocardiograph Report ---
[address] [place], [place] [address] Test Date: 2017-03-04 Pat Name: Giancarlo Mercedes Department: 104 Room: 3B Gender: M Cotton Tier: JENNIFER : 1965 Requested By: Avery Espinal Order Number: [id number] Reading MD: Meggan Peralta Measurements Intervals [place] Rate: 114 P: [place]: 0 QRS: -19 QRSD: 133 T: 149 QT: 327 QTc: 394 Interpretive Statements ATRIAL FLUTTER/TACHYCARDIA WITH RAPID VENTRICULAR RESPONSE INTRAVENTRICULAR CONDUCTION DELAY POSSIBLE LATERAL MYOCARDIAL INFARCTION, OF INDETERMINATE AGE Electronically Signed On 03-05-2017 22:20:41 EDT by Meggan Peralta
--- NOTE | 2017-03-06 15:16 | Electrocardiograph Report ---
[address] [place], [place] [address] Test Date: 2017-03-04 Pat Name: Giancarlo Mercedes Department: 104 Room: 3B Gender: M Chute Boss: JENNIFER : 1965 Requested By: Avery Espinal Order Number: [id number] Reading MD: Meggan Peralta Measurements Intervals [place] Rate: 114 P: [place]: 0 QRS: -14 QRSD: 142 T: 89 QT: 351 QTc: 418 Interpretive Statements ATRIAL FLUTTER/TACHYCARDIA WITH RAPID VENTRICULAR RESPONSE INTRAVENTRICULAR CONDUCTION DELAY PROBABLE LATERAL MYOCARDIAL INFARCTION, OF INDETERMINATE AGE Electronically Signed On 03-05-2017 22:17:14 EDT by Meggan Peralta
--- NOTE | 2017-03-06 18:27 | Internal Med Progress Note ---
Date of Encounter: 03/06/17 Time of Encounter: 08:05 - Assessment and plan (1) Chest pain Current Visit: Yes Status: Acute Assessment and plan: Patient denies chest pain today. Monitoring for hypotension and bradycardia from beta ana laura. Relative has been restarted with renal dosing. Patient started Imdur yesterday and remains chest pain-free. Cardiology is following Continue coding quality analyst labs Qualifiers: Chest pain type: other chest pain Qualified Code(s): R07.89 - Other chest pain; R07.8 - Other chest pain (2) Acute exacerbation of CHF (congestive heart failure) Current Visit: Yes Status: Acute Assessment and plan: Cardiology has seen pt. Changed IV lasix to pt's normal home dose of 60mg po BID. Patient was +1 nonpitting bilateral lower extremity edema, lungs clear. Monitor I and O Daily weight Cardiac diet. Qualifiers: Congestive heart failure type: diastolic Qualified Code(s): I50.33 - Acute on chronic diastolic (congestive) heart failure (3) Morbid obesity Current Visit: No Status: Chronic Assessment and plan: Chronic. Lifestyle changes. (4) Diabetes Current Visit: Yes Status: Chronic Assessment and plan: A1c 7.0%. Continue diabetic diet, accuchecks ac/hs, and SSI. Qualifiers: Diabetes mellitus type: type 2 Diabetes mellitus complication status: with kidney complications Diabetes mellitus complication detail: with other kidney complication Diabetes mellitus residential insulin use: with residential use Qualified Code(s): E11.29 - Type 2 diabetes mellitus with other diabetic kidney complication; Z79.4 - snf (current) use of insulin (5) Elevated troponin Current Visit: Yes Status: Acute Assessment and plan: Flat and adynamic 0.04 x 3. Most likely due to BLANKA on chronic CKD. Continue to monitor labs and continue telemetry. (6) Peripheral edema Current Visit: Yes Status: Chronic Assessment and plan: Plan as above. (7) CAD (coronary artery disease) Current Visit: Yes Status: Chronic Assessment and plan: Subroto is going to be restarted, renally dosed, 15 mg daily. Creatinine clearance is currently 40. Continue aspirin, statin, beta ana laura. Imdur was added yesterday. Patient denies chest pain. Monitoring for hypotension or bradycardia with beta ana laura increased. Cardiology still following. Qualifiers: Coronary Disease-Associated Artery/Lesion type: unspecified vessel or lesion type [place] vs. transplanted heart: [place] heart Associated angina: angina presence unspecified Qualified Code(s): I25.10 - Atherosclerotic heart disease of [place] coronary artery without angina pectoris (8) Chronic kidney disease, stage III (moderate) Current Visit: Yes Status: Chronic Assessment and plan: Renal function appears to be at baseline for pt, slight elevation in serum creatinine overnight, 2.14 today. Monitor labs and avoid nephrotoxins and NSAIDs. (9) DVT prophylaxis Current Visit: Yes Status: Acute Assessment and plan: Patient on to now. - Time Spent With Patient less than 15 minutes - Subjective Interval history: Pt seen and assessed at 0805. He is alert and awake, oriented. He denies chest pain, sob, headache, n/v or blurred vision. Patient reports that his peripheral edema is pretty much at his baseline. He denies worsening pedal or lower extremity edema. Patient was to have an extra 50 mg of metoprolol today prior to discharge, for a total of 100. He ended up actually getting 200 mg of metoprolol. Remarkably, his blood pressure and pulse have remained steady and the pulse still remains above 100. He denies chest pain or dizziness, no shortness of breath. - Constitutional Vitals: Temp Pulse Resp BP Pulse Ox 98.5 F 99 18 133/76 99 03/06/17 14:59 03/06/17 15:53 03/06/17 15:53 03/06/17 15:53 03/06/17 15:53 General appearance: Present: cooperative, A&O X 3, morbidly obese, pleasant, no acute distress, answers questions appropriately - Head Head exam: Present: normal inspection - Eye Eye exam: Present: normal appearance, conjuntiva pink - ENT ENT exam: Present: mucous membranes moist, normal exam - Respiratory Respiratory exam: Present: decreased breath sounds, CTAB. Absent: rales, rhonchi, stridor, wheezes - Cardiovascular Cardiovascular exam: Present: RRR, +S1, +S2, tachycardia. Absent: bradycardia, diastolic murmur, gallop, systolic murmur - GI/Abdominal GI/Abdominal exam: Present: distended, firm, normal bowel sounds. Absent: hepatomegaly, tenderness - Extremities Exam Extremities exam: Present: pedal edema, warm, radial pulses palpable and symetrical. Absent: calf tenderness, tenderness - Neurological Exam Neurological exam: Present: alert, oriented X3. Absent: facial droop, speech deficit - Psychiatric Psychiatric exam: Present: flat affect - Skin Skin exam: Present: dry, intact, normal color, warm. Absent: rash Internal Medicine: Result - Labs CBC & Chem 7: 03/06/17 03:46 03/06/17 03:46 Labs: Short CBC 03/06/17 Range/Units 03:46 WBC 10.7 (4.3-11.1) K/mcL Hgb 12.2 L (12.9-16.9) g/dL Hct 39.8 (37.5-50.1) % Plt Count 246 (140-400) K/mcL Neutrophils # 8.1 (1.6-8.9) K/mcL BMP 03/06/17 03:46 Sodium 138 Potassium 4.2 Chloride 103 Carbon Dioxide 27 BUN 36 H Creatinine 2.14 H Glucose 158 H Calcium 9.3 - ABG Interpretation ABG results: PT/INR, D-dimer PT 15.1 Seconds (9.4-12.1) H 03/04/17 18:56 - Impressions Impressions Echocardiogram 03/05/17 11:00 Impressions: Technically challenging study. LV systolic function appears normal with use of Definity, EF 60-65%. Indeterminate left ventricular diastolic function. RV may be normal in size. Function is not well evaluated. No significant valvular dysfunction. No pulmonary hypertension. Findings: Study Quality * Technically sub-optimal due to body habitus. ECG Findings * Normal sinus rhythm. * Atrial fibrillation. Left Ventricle * Indeterminate diastolic function. * LVEF 60-65%. * Suboptimal PLAX measurements. Probably increased LV wall thickness. * Definity echo contrast was used. Aorta * Normally sized aortic root. Aortic Valve * No aortic regurgitation. * Trileaflet aortic valve. * Mildly calcified aortic valve leaflets. Mitral Valve * Normal mitral valve function. * No mitral stenosis. * No mitral regurgitation. Tricuspid Valve * Tricuspid valve not well visualized. * Trace tricuspid regurgitation. * Estimated RA pressure is 3 mmHg. * Estimated RVSP is 29 mmHg. * No pulmonary hypertension. Pulmonic Valve * Pulmonic valve is not well visualized. * No pulmonic stenosis. * No pulmonic regurgitation. Pulmonary Artery * Pulmonary artery not well visualized. Right Ventricle * RV size appears normal. Function is not well evaluated. Left Atrium * Moderately dilated left atrium. Right Atrium * Normal right atrial size. Interatrial Septum * No evidence of PFO by color Doppler. Pericardium * There is no pericardial effusion present. IVC * Normal IVC dimensions and inspiratory collapse. Consult Discharge Plan - Plan Referrals: Billie Van, LI[employer] G[employer] SPECIALIST [Primary Care Provider] -
[2017-03-07 04:20] LABS: Basophils # 0.1 K/mcL (0.0-0.2); Basophils % 0.5 %; Eosinophils # 0.2 K/mcL (0.0-0.6); Eosinophils % 1.6 %; Hemoglobin 12.2 g/dL (12.9-16.9); Immature Granulocytes % 0.6 % (0-4); Lymphocytes # 1.8 K/mcL (0.6-4.6); Lymphocytes % 16.1 %; Mean Corpuscular HGB Conc 31.3 g/dL (31.6-35.5); Mean Corpuscular Hemoglobin 24.6 pg (28.0-33.3); Mean Corpuscular Volume 78.6 fL (83.0-100.0); Mean Platelet Volume 9.8 fL (9.4-12.4); Monocytes # 0.8 K/mcL (0.0-1.3); Monocytes % 7.1 %; Neutrophils # 8.1 K/mcL (1.6-8.9); Platelet Count 248 K/mcL (140-400); Red Blood Count 4.96 M/mcL (4.19-5.50); Red Cell Distribution Width 15.9 % (11.5-14.5); Segmented Neutrophils % 74.1 %
[2017-03-07 04:32] LABS: Calcium 9.3 mg/dL (8.6-10.8); Potassium 4.4 mEq/L (3.5-4.5)
[2017-03-07] MEDS ORDERED: Metoprolol XL (24 HR) Succ 50 MG TAB.ER.24H PO SCH (09:00)
[2017-03-07] MEDS ORDERED: Diltiazem CD (24hr) 120 MG CAPSULE PO SCH (09:00)
[2017-03-07] MEDS: Insulin LISPRO 300 UNITS/3 ML VIAL SQ SCH ×4 (09:13→12:43)
[2017-03-07] MEDS: Aspirin Enteric Coated 81 MG Tablet PO SCH (09:14)
[2017-03-07] MEDS: Isosorbide MONOnitrate (24 HR) 30 MG TAB.ER.24H PO SCH (09:14)
[2017-03-07] MEDS: *HR* Rivaroxaban 15 MG TABLET PO SCH (09:14)
[2017-03-07] MEDS: Loratadine 10 MG TABLET PO SCH (09:15)
[2017-03-07] MEDS: Pantoprazole 40 MG VIAL IVP SCH (09:15)
[2017-03-07] MEDS: Silvasorb 44.4 ML TUBE TP SCH (09:16)
[2017-03-07] MEDS: Insulin DETEMIR 100 UNIT/ML X5UNITS SQ SCH (09:29)
--- NOTE | 2017-03-07 09:36 | Internal Med Progress Note ---
Date of Encounter: 03/07/17 Time of Encounter: 08:45 - Constitutional Vitals: Temp Pulse Resp BP Pulse Ox 98.2 F 104 18 132/81 96 03/07/17 07:47 03/07/17 07:47 03/07/17 07:47 03/07/17 07:47 03/07/17 07:47 General appearance: Present: cooperative, A&O X 3, morbidly obese, pleasant, no acute distress, answers questions appropriately Internal Medicine: Result - Labs CBC & Chem 7: 03/07/17 03:42 03/07/17 03:42 Labs: Short CBC 03/07/17 Range/Units 03:42 WBC 10.9 (4.3-11.1) K/mcL Hgb 12.2 L (12.9-16.9) g/dL Hct 39.0 (37.5-50.1) % Plt Count 248 (140-400) K/mcL Neutrophils # 8.1 (1.6-8.9) K/mcL BMP 03/07/17 03:42 Sodium 134 L Potassium 4.4 Chloride 101 Carbon Dioxide 25 BUN 41 H Creatinine 2.19 H Glucose 243 H Calcium 9.3 - ABG Interpretation ABG results: PT/INR, D-dimer PT 15.1 Seconds (9.4-12.1) H 03/04/17 18:56 - Impressions Impressions Echocardiogram 03/05/17 11:00 Impressions: Technically challenging study. LV systolic function appears normal with use of Definity, EF 60-65%. Indeterminate left ventricular diastolic function. RV may be normal in size. Function is not well evaluated. No significant valvular dysfunction. No pulmonary hypertension. Findings: Study Quality * Technically sub-optimal due to body habitus. ECG Findings * Normal sinus rhythm. * Atrial fibrillation. Left Ventricle * Indeterminate diastolic function. * LVEF 60-65%. * Suboptimal PLAX measurements. Probably increased LV wall thickness. * Definity echo contrast was used. Aorta * Normally sized aortic root. Aortic Valve * No aortic regurgitation. * Trileaflet aortic valve. * Mildly calcified aortic valve leaflets. Mitral Valve * Normal mitral valve function. * No mitral stenosis. * No mitral regurgitation. Tricuspid Valve * Tricuspid valve not well visualized. * Trace tricuspid regurgitation. * Estimated RA pressure is 3 mmHg. * Estimated RVSP is 29 mmHg. * No pulmonary hypertension. Pulmonic Valve * Pulmonic valve is not well visualized. * No pulmonic stenosis. * No pulmonic regurgitation. Pulmonary Artery * Pulmonary artery not well visualized. Right Ventricle * RV size appears normal. Function is not well evaluated. Left Atrium * Moderately dilated left atrium. Right Atrium * Normal right atrial size. Interatrial Septum * No evidence of PFO by color Doppler. Pericardium * There is no pericardial effusion present. IVC * Normal IVC dimensions and inspiratory collapse. Consult Discharge Plan - Plan Referrals: Billie Van, STEEL LAYOUT WORKER [Primary Care Provider] -
[2017-03-07 11:34] VITALS: BP 126/82
--- NOTE | 2017-03-07 11:35 | Discharge Summary ---
<Brennon Mcqueen - Last Filed: 03/07/17 13:16> Date of Encounter: 03/07/17 Time of Encounter: 08:45 - Discharge Diagnosis (1) Chest pain Priority: Primary Status: Acute Qualifiers: Chest pain type: other chest pain Qualified Code(s): R07.89 - Other chest pain; R07.8 - Other chest pain (2) Chronic diastolic CHF (congestive heart failure), NYHA class 2 Priority: Secondary Status: Chronic (3) Atrial fibrillation Priority: Secondary Status: Chronic Qualifiers: Atrial fibrillation type: unspecified Qualified Code(s): I48.91 - Unspecified atrial fibrillation (4) Diabetes Priority: Secondary Status: Chronic Qualifiers: Diabetes mellitus type: type 2 Diabetes mellitus complication status: with kidney complications Diabetes mellitus complication detail: with other kidney complication Diabetes mellitus residential insulin use: with residential use Qualified Code(s): E11.29 - Type 2 diabetes mellitus with other diabetic kidney complication; Z79.4 - halfway (current) use of insulin (5) Elevated troponin Priority: Secondary Status: Acute (6) Acute exacerbation of CHF (congestive heart failure) Priority: Secondary Status: Acute Qualifiers: Congestive heart failure type: diastolic Qualified Code(s): I50.33 - Acute on chronic diastolic (congestive) heart failure (7) CAD (coronary artery disease) Priority: Secondary Status: Chronic Qualifiers: Coronary Disease-Associated Artery/Lesion type: unspecified vessel or lesion type [place] vs. transplanted heart: [place] heart Associated angina: angina presence unspecified Qualified Code(s): I25.10 - Atherosclerotic heart disease of [place] coronary artery without angina pectoris (8) Chronic kidney disease, stage III (moderate) Priority: Secondary Status: Chronic (9) Diabetic foot ulcer Priority: Secondary Status: Acute Qualifiers: Diabetic foot ulcer location: midfoot Diabetes mellitus type: type 2 Laterality: left Non-pressure ulcer stage: limited to breakdown of skin Qualified Code(s): E11.621 - Type 2 diabetes mellitus with foot ulcer; L97.421 - Non-pressure chronic ulcer of left heel and midfoot limited to breakdown of skin - Discharge Medications Prescriptions: Diltiazem CD (24hr) [Cardizem CD] 120 mg PO DAILY #30 tab Isosorbide MONOnitrate (24 HR) [Imdur] 30 mg PO DAILY #30 tab Metoprolol XL (24 HR) Succ [Toprol Xl] 100 mg PO DAILY #30 tab Rivaroxaban [Xarelto] 15 mg PO DAILY #30 tab Silvasorb 1 appl TP DAILY #1 tub Home Medications: Ferrous Sulfate 325 mg PO DAILY 03/11/15 [History] Lisinopril [Zestril] 10 mg PO DAILY 05/05/15 [History] Aspirin [Lo-Dose Aspirin EC] 81 mg PO QAM 03/11/16 [History] Atorvastatin [Lipitor] 40 mg PO HS 03/11/16 [History] Insulin ASPART [Novolog Flexpen] 30 unit SQ TIDWM 03/11/16 [History] Albuterol Sulfate [Ventolin Hfa] 2 puff IH Q4H PRN 06/07/16 [History] Insulin Glargine [Lantus] 80 unit SQ BID 06/07/16 [History] Cetirizine HCl 10 mg PO DAILY 01/03/17 [History] Furosemide [Lasix] 60 mg PO BID #60 tablet 01/05/17 [Rx] Diltiazem CD (24hr) [Cardizem CD] 120 mg PO DAILY #30 tab 03/07/17 [Rx] Isosorbide MONOnitrate (24 HR) [Imdur] 30 mg PO DAILY #30 tab 03/07/17 [Rx] Metoprolol XL (24 HR) Succ [Toprol Xl] 100 mg PO DAILY #30 tab 03/07/17 [Rx] Rivaroxaban [Xarelto] 15 mg PO DAILY #30 tab 03/07/17 [Rx] Silvasorb 1 appl TP DAILY #1 tub 03/07/17 [Rx] Allergies/Adverse Reactions: Allergies No Known Allergies Allergy (Verified 01/03/17 12:41) Procedures/tests Complete & Pending: Procedures Performed prior 72 hours Category Date Time Status EV echocardiogram w enhance Routine Y 03/05/17 11:00 Completed CTA chest: "IMPRESSION: No evidence of pulmonary embolism. Bronchial wall thickening, may be related to small airway disease or bronchiolitis. Minimal prominence of the main pulmonary artery, may be related to borderline pulmonary hypertension. Moderate atherosclerotic disease of the coronary arteries." CXR: "IMPRESSION: No acute cardiopulmonary disease." Date of admission: 03/04/17 16:59 Primary care physician: Billie Van CNP Consults: 03/04/17 18:48 Consult to Cardiology [CONS] Routine Comment: Consulting Provider: Cardiology Mell Reason for Consult: Chest pain w/hx of CABG and quad bypass. Possible demand ischemia d/t atrial flutter Call Completed: No 03/05/17 13:02 Consult to Wound Care [CONS] Routine Reason for Consult: diabetic foot ulcers, please come see patient. Call Completed: No Discharging clinician: Brennon Mcqueen Anticipated date of discharge: 03/07/17 - Patient Status Disposition: Home, Self-Care Condition: Fair Functional capacity at discharge: independent ambulation Overall status at discharge: patient is progressing back to baseline - Discharge Instructions Instructions: Metoprolol (By mouth), Diltiazem (By mouth), Isosorbide Mononitrate (By mouth), Rivaroxaban (By mouth) Follow Up With: Billie Van, ANDREW [Primary Care Provider] - Additional Instructions: Please follow up with your primary care provider within 1 week of discharge. Please follow up cardiology within 2 weeks of discharge. Please take your new medications as prescribed. Please take your new higher dose of Metoprolol 100mg daily. Please take you lower dose of your xarelto 15mg. Please return to the hospital if you experience new or worsening symptoms. - Diet and Activity Activity: resume usual activities as tolerated Diet: diabetic diet Interval History: Patient reports feeling fine this morning. He denies chest pain, SOB, Nausea, diarrhea, vomiting. He reports the swelling in his legs has improved. Hospital course: Mr. Mercedes is a 51 year old male with PMHx of afib, CHF, COPD, CAD, CABG, CVA, diabetes with insulin dependency, GERD, HLD, HTN, DC, and CKD stage III who presented to the hospital c/o CP radiating to the L neck and R arm. Patient's pain resolved with NG, and ASA. Patient was in a fib with RVR upon presentation. Cardiology was consulted. Troponins were mildly elevated 0.03, 0.04 x3. Patient had an echo which showed preserved EF. They started the patient on cardiazem 120, and Imdur 30; They increased his metoprolol from 50 to 100mg and decreased his xarelto from 20 to 15mg. - Time Spent with Patient Total time spent providing and/or coordinating discharge services: - Constitutional Vitals: Temp Pulse Resp BP Pulse Ox 98.2 F 104 18 132/81 96 03/07/17 07:47 03/07/17 07:47 03/07/17 07:47 03/07/17 07:47 03/07/17 09:33 General appearance: Present: cooperative, A&O X 3, morbidly obese, pleasant, no acute distress, answers questions appropriately - Eye Eye exam: Present: PERRL - ENT ENT exam: Present: mucous membranes moist - Respiratory Respiratory exam: Present: CTAB. Absent: rales, rhonchi, wheezes - Cardiovascular Cardiovascular exam: Present: irregular rhythm, +S1, +S2 - GI/Abdominal GI/Abdominal exam: Present: normal bowel sounds, soft. Absent: tenderness - Extremities Exam Extremities exam: Absent: pedal edema - Neurological Exam Neurological exam: Present: alert, oriented X3. Absent: speech deficit - Psychiatric Psychiatric exam: Present: normal affect, normal mood - Skin Additional comments: diabetic ulcer on the sole of the left foot. <Devin Vaughan - Last Filed: 03/07/17 18:57> Date of Encounter: 03/07/17 - Discharge Diagnosis (1) Atypical chest pain Priority: Primary Status: Acute (2) Congestive heart failure Priority: Secondary Status: Chronic Qualifiers: Congestive heart failure type: diastolic Congestive heart failure chronicity: chronic Qualified Code(s): I50.32 - Chronic diastolic (congestive ) heart failure (3) Morbid obesity Priority: Secondary Status: Chronic (4) Chronic kidney disease, stage III (moderate) Status: Chronic (5) Atrial fibrillation Status: Chronic Qualifiers: Atrial fibrillation type: chronic Qualified Code(s): I48.2 - Chronic atrial fibrillation (6) CAD (coronary artery disease) Status: Chronic Qualifiers: Coronary Disease-Associated Artery/Lesion type: [place] artery [place] vs. 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 Possible demand ischemia d/t atrial flutter Call Completed: No 03/05/17 13:02 Consult to Wound Care [CONS] Routine Reason for Consult: diabetic foot ulcers, please come see patient. Call Completed: No Hospital course: Mr. Mercedes is a 51 year old male - Time Spent with Patient Total time spent providing and/or coordinating discharge services: 38min - Constitutional Vitals: Temp Pulse Resp BP Pulse Ox 97.8 F 90 16 126/82 97 03/07/17 11:33 03/07/17 11:33 03/07/17 11:33 03/07/17 11:33 03/07/17 11:33 - Attending Attestation I examined this patient and my medical decision-making was reviewed with the Resident Physician on 03/07/17. I agree with the documented findings, disposition and treatment plan as described except to the extent set forth below. Mr. Mercedes was admitted for chest pain. He was to be discharged yesterday but received metoprolol and heartrate decreased. He is improved today with stable vitals and is ready for discharge home. Exam Alert. Comfortable Mucus membranes moist Heart reg Lungs clear Plan D/C home today. Follow as outpatient.
--- NOTE | 2017-03-07 11:39 | Cardiology Progress Note ---
Date of Encounter: 03/07/17 Time of Encounter: 11:35 Assessment and Plan (1) Chest pain Current Visit: Yes Status: Acute Intermittent chest pain started 2-3 days ago, radiated to left neck prior to admission. Relief with ASA and nitro in ED. Denies any recurrent chest pain. No significant EKG changes. Borderline troponins, 0.03, 0.04 x 3. Echo EF preserved. LHC in 2013 showed patent 3/3 bypass grafts. Added Imdur, 30 mg daily. No recurrent chest pain. No further cardiac work-up warranted. Recommend outpt follow-up in 2 weeks. Will coordinate. Qualifiers: Qualified Code(s): R07.89 - Other chest pain; R07.8 - Other chest pain (2) Atrial fibrillation Current Visit: Yes Status: Chronic Known hx of A-Fib. Presented in A-Fib RVR HR 114, currently 101 at bedside. Increased Toprol XL to 100mg daily and will start Cardizem CD 120mg daily. 12 hr tele AVG HR 85 overnight. Anticoagulated on Xarelto, held on admission due to possible ischemic evaluation. Resumed yesterday, but at 15mg renal dose since creatinine clearance is ~40. Follow-up as outpt Qualifiers: Qualified Code(s): I48.91 - Unspecified atrial fibrillation (3) Chronic diastolic CHF (congestive heart failure), NYHA class 2 Current Visit: Yes Status: Chronic No acute exacerbation. On home PO dose of 60mg BID. Echo EF preserved. (4) Elevated troponin Current Visit: Yes Status: Acute Borderline--0.03, 0.04 x 4 in setting of CKD and A-Fib RVR, likely demand ischemia, nondiagnostic for ACS. Chest pain as above. No recurrence with addition of Imdur. Echo EF preserved. (5) CAD (coronary artery disease) Current Visit: Yes Status: Chronic Known hx of 3V CABG and PCI. ASA, statin, BB. Added Imdur. Qualifiers: Qualified Code(s): I25.10 - Atherosclerotic heart disease of [place] coronary artery without angina pectoris Discussion w patient/family: The assessment and plan as outlined above was discussed with the patient and/or family members who expressed understanding and agreement. All questions were answered. Thank you for involving us in the care of your patient. Please call with any questions. I will discuss all the above with Dr. Bro and make changes as necessary. Subjective Principal diagnosis: Chest pain, A-Fib Interval history: Pt denies any recurrent chest pain, reports feeling well. No acute complaints. Echo EF 60-65%. 12 hr tele AVG HR 85, A-Fib, currently low 100s at bedside. Objective Vital Signs, Last 4 Hours Temp Pulse Resp BP Pulse Ox 03/07/17 11:33 97.8 F 90 16 126/82 97 03/07/17 09:33 96 03/07/17 07:47 98.2 F 104 18 132/81 96 Vital Signs Temp Pulse Resp BP Pulse Ox 03/07/17 11:33 97.8 F 90 16 126/82 97 03/07/17 09:33 96 03/07/17 07:47 98.2 F 104 18 132/81 96 03/07/17 03:08 98.4 F 68 20 110/71 98 03/06/17 23:05 98.5 F 97 20 123/73 98 03/06/17 18:51 98.9 F 68 20 119/72 97 03/06/17 15:53 99 18 133/76 99 03/06/17 14:59 98.5 F 108 15 104/65 99 03/06/17 14:22 108 18 123/69 99 03/06/17 13:52 105 18 108/59 99 03/06/17 13:22 107 18 122/77 99 03/06/17 12:52 109 18 120/69 99 03/06/17 12:22 106 18 137/72 98 03/06/17 12:05 97.6 F 108 16 125/80 100 03/06/17 11:52 108 18 131/67 99 Intake and Output 03/06/17 03/07/17 03/07/17 23:59 07:59 15:59 Intake Total 240 / 240 400 / 400 480 / 480 Output Total 675 / 675 1300 / 1300 Balance -435 / -435 400 / 400 -820 / -820 Intake: Oral 240 / 240 400 / 400 480 / 480 Output: Urine 675 / 675 1300 / 1300 Other: Meal Dinner Breakfast Percent of Meal Consumed 100% 100% # Bowel Movements 1 Weight 124.7 kg Blood Glucose* 199 191 264 Patient Weight 03/07/17 23:59 Weight 124.7 kg General: Conversant, No Apparent Distress HEENT: Atraumatic, Normocephaly, Mucus Membranes Moist Neck: No JVD, Normal carotid pulses Cardiac: Other (irregularly irregular) Lungs: Normal Breath Sounds, No Wheeze, Rales, Rhonchi Neuro: Alert and responsive, No focal deficits noted Abdomen: Soft, Non-Tender Skin: No rashes noted on visualized skin Musculoskeletal: No Chest Wall Tenderness Extremities: No Clubbing, No Cyanosis, No Edema, Normal Pulses Results 03/07/17 03:42 03/07/17 03:42 Lab Results 03/07/17 03/07/17 03:42 03:42 WBC 10.9 Hgb 12.2 L Hct 39.0 Plt Count 248 Sodium 134 L Potassium 4.4 Chloride 101 Carbon Dioxide 25 BUN 41 H Creatinine 2.19 H Glucose 243 H Calcium 9.3 Short CBC 03/07/17 Range/Units 03:42 WBC 10.9 (4.3-11.1) K/mcL Hgb 12.2 L (12.9-16.9) g/dL Hct 39.0 (37.5-50.1) % Plt Count 248 (140-400) K/mcL Neutrophils # 8.1 (1.6-8.9) K/mcL BMP 03/07/17 Range/Units 03:42 Sodium 134 L (136-145) mEq/L Potassium 4.4 (3.5-4.5) mEq/L Chloride 101 (98-109) mEq/L Carbon Dioxide 25 (19-29) mEq/L BUN 41 H (8-26) mg/dL Creatinine 2.19 H (0.72-1.25) mg/dL Glucose 243 H (70-99) mg/dL Calcium 9.3 (8.6-10.8) mg/dL Impressions Echocardiogram 03/05/17 11:00 Impressions: Technically challenging study. LV systolic function appears normal with use of Definity, EF 60-65%. Indeterminate left ventricular diastolic function. RV may be normal in size. Function is not well evaluated. No significant valvular dysfunction. No pulmonary hypertension. Findings: Study Quality * Technically sub-optimal due to body habitus. ECG Findings * Normal sinus rhythm. * Atrial fibrillation. Left Ventricle * Indeterminate diastolic function. * LVEF 60-65%. * Suboptimal PLAX measurements. Probably increased LV wall thickness. * Definity echo contrast was used. Aorta * Normally sized aortic root. Aortic Valve * No aortic regurgitation. * Trileaflet aortic valve. * Mildly calcified aortic valve leaflets. Mitral Valve * Normal mitral valve function. * No mitral stenosis. * No mitral regurgitation. Tricuspid Valve * Tricuspid valve not well visualized. * Trace tricuspid regurgitation. * Estimated RA pressure is 3 mmHg. * Estimated RVSP is 29 mmHg. * No pulmonary hypertension. Pulmonic Valve * Pulmonic valve is not well visualized. * No pulmonic stenosis. * No pulmonic regurgitation. Pulmonary Artery * Pulmonary artery not well visualized. Right Ventricle * RV size appears normal. Function is not well evaluated. Left Atrium * Moderately dilated left atrium. Right Atrium * Normal right atrial size. Interatrial Septum * No evidence of PFO by color Doppler. Pericardium * There is no pericardial effusion present. IVC * Normal IVC dimensions and inspiratory collapse. Active Medications Acetaminophen (Tylenol) 650 mg PO Q6HR PRN PRN Reason: Mild Pain (1-3) Stop: 09/03/17 18:36 Hydrocodone Bitart/Acetaminophen ([place] 5-325 Mg) 1 tab PO Q4HR PRN PRN Reason: Moderate Pain (4-6) Stop: 09/03/17 18:36 Albuterol/Ipratropium (Duoneb) 3 ml IH [id number] PRN PRN Reason: Shortness Of Breath/Wheezing Stop: 09/03/17 18:46 Aspirin (Aspirin Ec) 81 mg PO QAM [facility] Stop: 09/04/17 09:01 Last Admin: 03/07/17 09:14 Dose: 81 mg Atorvastatin Calcium (Lipitor) 40 mg PO HS [facility] Stop: 09/03/17 21:01 Last Admin: 03/06/17 21:08 Dose: 40 mg Dextrose/Water (Dextrose 50% (Syg)) 25 ml IVP AD PRN PRN Reason: Hypoglycemia Stop: 09/03/17 18:44 Diltiazem HCl (Cardizem Cd) 120 mg PO DAILY [facility] Stop: 09/06/17 09:01 Last Admin: 03/07/17 09:15 Dose: 120 mg Ferrous Sulfate (Ferrous Sulfate) 325 mg PO DAILY [facility] Stop: 09/04/17 09:01 Last Admin: 03/07/17 09:14 Dose: 325 mg Furosemide 20 mg/ Furosemide (40 mg) 60 mg PO BIDDIURETIC [facility] Stop: 09/05/17 17:01 Last Admin: 03/07/17 09:14 Dose: 60 mg Glucagon (Glucagen) 1 mg IM ONCE PRN PRN Reason: Hypoglycemia Stop: 09/03/17 18:44 Glucose (Gluctose) 15 gm PO ONCE PRN PRN Reason: Hypoglycemia Stop: 09/03/17 18:44 Glucose (Gluctose) 30 gm PO ONCE PRN PRN Reason: Hypoglycemia Stop: 09/03/17 18:44 Dextrose (Dextrose 5%) 1,000 mls @ 100 mls/hr IVC .Q10H PRN PRN Reason: HYPOGLYCEMIA Stop: 09/03/17 18:44 Sodium Chloride (0.9 % Sodium Chloride) 1,000 mls @ 75 mls/hr IVC .[id number] [facility] Stop: 09/05/17 09:01 Insulin Detemir (Levemir) 60 unit SQ BID [facility] Stop: 09/03/17 21:01 Last Admin: 03/07/17 09:29 Dose: 60 unit Insulin Human Lispro (Humalog) 20 units SQ TIDWM [facility] Stop: 09/04/17 08:01 Last Admin: 03/07/17 09:13 Dose: 20 units Insulin Human Lispro (Humalog) 0 units SQ TIDAC [facility] PRN Reason: Protocol Stop: 09/04/17 07:31 Last Admin: 03/07/17 09:13 Dose: 4 units Insulin Human Lispro (Humalog) 0 units SQ HS [facility] PRN Reason: Protocol Stop: 09/03/17 21:01 Last Admin: 03/06/17 21:05 Dose: Not Given Isosorbide Mononitrate (Imdur) 30 mg PO DAILY [facility] Stop: 09/04/17 10:01 Last Admin: 03/07/17 09:14 Dose: 30 mg Loratadine (Claritin) 10 mg PO DAILY [facility] Stop: 09/04/17 09:01 Last Admin: 03/07/17 09:15 Dose: 10 mg Metoprolol Succinate (Toprol Xl) 100 mg PO DAILY [facility] Stop: 09/06/17 09:01 Last Admin: 03/07/17 09:15 Dose: 100 mg Morphine Sulfate (Morphine Sulfate) 2 mg IVP Q4HR PRN PRN Reason: Severe Pain (7-10) Stop: 09/03/17 18:36 Naloxone HCl (Narcan) 0.4 mg IVP Q2MIN PRN PRN Reason: Opioid Reversal Stop: 09/03/17 18:36 Nitroglycerin (Nitroglycerin) 0.4 mg SL Q5MIN PRN PRN Reason: Chest Pain Stop: 09/03/17 18:55 Ondansetron HCl (Zofran) 4 mg IVP Q8HR PRN PRN Reason: Nausea And Vomiting Stop: 09/03/17 18:36 Pantoprazole Sodium (Protonix) 40 mg IVP DAILY JACI Stop: 09/04/17 09:01 Last Admin: 03/07/17 09:15 Dose: 40 mg Rivaroxaban (Xarelto) 15 mg PO DAILY [facility] Stop: 09/05/17 09:16 Last Admin: 03/07/17 09:14 Dose: 15 mg Silver Nitrate (Silvasorb) 1 appl TP DAILY JACI Stop: 09/05/17 12:46 Last Admin: 03/07/17 09:16 Dose: 1 appl - Imaging and Cardiology Echo: report reviewed - EKG Interpretation EKG results cardiology: other (12 hr tele AVG HR 85, A-Fib) Consult Discharge Plan - Plan Referrals: Billie Van, LEARNING ANALYST [Primary Care Provider] -
== END 2017-03-07 14:45 | disposition home or self-care (01) ==
LOC: 3BNU 14:22 → EMEROO 14:22 → SUATTDRO 16:59 → 3BNU 17:45
PROVIDERS: ADMIT Hospitalist; ATTEND Internal Medicine

== ENCOUNTER 2017-04-22 21:14 | Inpatient (IN) ==
[2017-04-22] MEDS ORDERED: Acetaminophen 325 MG TABLET PO PRN (23:20)
[2017-04-22] MEDS ORDERED: Naloxone 0.4 MG/ML INJ IVP PRN (23:20)
[2017-04-22] MEDS ORDERED: *HR* Morphine 2 MG/ML SYRINGE IVP PRN (23:20)
[2017-04-22] MEDS ORDERED: *HR* HYDROcodone/Acet 5/325 mg TABLET PO PRN (23:20)
[2017-04-22] MEDS ORDERED: Ondansetron 4 MG/2 ML VIAL IVP PRN (23:20)
[2017-04-22] MEDS ORDERED: D5% in Water 1,000 ML IVC PRN (23:24)
[2017-04-22] MEDS ORDERED: *HR* Dextrose 50 % in Water (Syg) 50 ML SYRINGE IVP PRN (23:24)
[2017-04-22] MEDS ORDERED: Dextrose Gel 15 GM PO PRN ×2 (23:24)
[2017-04-22] MEDS ORDERED: 0.9 % Sodium Chloride 1,000 ML IVC SCH (23:30)
--- NOTE | 2017-04-23 00:14 | Internal Med History&Physical ---
<Debbie Cee M - Last Filed: 04/23/17 00:29> Date of Encounter: 04/23/17 Time of Encounter: 00:09 Assessment and Plan (1) Sepsis Current visit: Yes Status: Acute Patient with cellulitis and suspected osteomyelitis of left 4th toe. He was febrile with temp of 101.3 at [facility], and WBC count is elevated to 17.5. lactate was 2.0, we are rechecking. Blood cultures and wound cultures were ordered and sent at [facility] He was given 1 L bolus at [facility]. He was started on broad spectrum antibiotics with Vanc and Zosyn. We will continue. Qualifiers: Sepsis type: sepsis due to unspecified organism Qualified Code(s): A41.9 - Sepsis, unspecified organism (2) Necrosis of toe Current visit: Yes Status: Acute Left 4th toe is purple, black and necrotic appearing. Surgery, podiatry and wound care consulted. NPO after midnight for likely surgery. EKG and CXR ordered for pre-op clearance. Patient had recent cardiac evaluation with echo showing preserved EF. (3) Osteomyelitis Current visit: Yes Status: Acute Foot xray showed soft tissue gas about the 4th distal phalanx and questionable erosive changes of 4th metatarsal head. This is suspicious for osteomyelitis. wound cultures and blood cultures sent. Broad spectrum antibiotics with Vanc and Zosyn. Surgery and podiatry consulted. NPO after midnight for likely surgery tomorrow. Qualifiers: Osteomyelitis type: unspecified type Osteomyelitis location: foot Laterality: left Qualified Code(s): M86.9 - Osteomyelitis, unspecified (4) Atrial fibrillation Current visit: Yes Status: Chronic patient with chronic Afib, on cardizem, metoprolol for rate and rhythm control and on Xarelto for anti-coagulation. Holding Xarelto for surgery. Continue home doses of cardizem and metoprolol. Qualifiers: Atrial fibrillation type: chronic Qualified Code(s): I48.2 - Chronic atrial fibrillation (5) CAD (coronary artery disease) Current visit: Yes Status: Chronic Patient with CAD s/p CABG. Checking EKG for pre-op clearance. He had recent cardiac evaluation with echo showing preserved EF. Continue home doses of imdur , metoprolol, aspirin, and statin. Qualifiers: Coronary Disease-Associated Artery/Lesion type: [place] artery [place] vs. transplanted heart: [place] heart Associated angina: without angina Qualified Code(s): I25.10 - Atherosclerotic heart disease of [place] coronary artery without angina pectoris (6) Chronic diastolic CHF (congestive heart failure), NYHA class 2 Current visit: Yes Status: Chronic Patient had recent cardiac evaluation with echo showing preserved EF. Cardiac/ diabetic diet when not NPO. daily weight. Continue home dose of lasix. (7) Chronic kidney disease, stage III (moderate) Current visit: Yes Status: Chronic Patient's creatinine today of 2.27 is consistent with his baseline. Avoid NSAIDs and nephrotoxins. Check chemistry daily. (8) Anticoagulated Current visit: Yes Status: Acute Patient on Xarelto for afib. Last dose Monday morning. Hold AM dose for likely surgery. Restart if patient not going to surgery. (9) Obstructive sleep apnea Current visit: Yes Status: Chronic Respiratory therapy consulted for CPAP. (10) Type 2 diabetes mellitus Current visit: Yes Status: Acute Patient NPO after midnight for possible surgery Diabetic/cardiac diet when not NPO Check blood sugars q6hr give 32u of Levemir BID since patient is NPO (home dose of long acting is 70u BID) High dose sliding scale correction dose Q6hr (home dose of 20u TIDWM) hypoglycemic protocol. 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 Internal Medicine - H&P: HPI Chief complaint: infected toe Admitted From: Hospital to Hospital Transfer Plans for Post Hospital Care: Home History of present illness: Mr. Mercedes is a 51 year old male with hypertension, hyperlipidemia, type 2 diabetes, coronary artery disease status post CABG, atrial fibrillation on Xarelto, COPD, congestive heart failure, chronic kidney disease presented to [facility] emergency department with complaints of infected left fourth toe. Patient reports that he had an ulcer on the bottom of his left foot being treated in wound care clinic. He had a cast on his foot for this ulcer, but missed a couple of appointments and left the cast on longer than intended. The cast came off earlier this week per the patient. Yesterday he noticed his fourth toe on his left foot was purple, and he thought it was bruised. Today the foot started draining foul-smelling purulent drainage and had black necrotic tissue as well. He reports fever, sweats and chills. He denies any nausea, vomiting, abdominal pain. He does not report any pain in his left foot. Evaluation in the emergency department at [facility] revealed elevated white blood cell count of 17.5. He was febrile with temperature of 101.3. Kidney function was at baseline with creatinine of 2.27. Lactate was 2.0. Foot x-ray showed soft tissue gas about the fourth distal phalanx, with questionable erosive changes of the fourth metatarsal head. Dr. Rojas of surgery and podiatry were both consult for patient. On exam, patient alert and oriented, in no acute distress. Heart is regular rate and rhythm, lungs are clear bilaterally to auscultation. Abdomen soft, nontender, positive bowel sounds. Left fourth toe is purple and black skin at the tip looks dry and shriveled, there is bleeding as well as foul-smelling purulent drainage at the base of the toe and between the fourth and fifth toes. There is surrounding erythema. Past Med Surg Social Fam HX - Past Medical History Medical history: atrial fibrillation, CHF, COPD, coronary artery disease, CVA, diabetes, GERD, hyperlipidemia, hypertension, myocardial infarction, renal disease Psychiatric history: anxiety, depression - Past Surgical History Surgical History: coronary bypass (CABG), orthopedic, other, other - Social History Smoking Status: Former smoker Smokeless Tobacco Status: Yes Alcohol use: none Drug use: none - Family History Mother Family Member Ethnicity: Non- Living Status: Hx Family Cardiac Disorders: Yes (HD, HTN, CHF) Hx Family Respiratory Disorders: Yes (COPD, emphysema) Father Family Member Ethnicity: Non- Living Status: Hx Family Cardiac Disorders: Yes (HD, HTN, DC) Brother Family Member Ethnicity: Non- Living Status: Still Living Hx Family Cardiac Disorders: Yes (HD) Hx Family Respiratory Disorders: Yes (COPD) Sister Family Member Ethnicity: Non- Living Status: Still Living Hx Family Endocrine Disorder: Yes (T2DM) Internal Medicine - H&P: Meds Ferrous Sulfate 325 mg PO DAILY 03/11/15 [History] Lisinopril [Zestril] 10 mg PO DAILY 05/05/15 [History] Aspirin [Lo-Dose Aspirin EC] 81 mg PO QAM 03/11/16 [History] Atorvastatin [Lipitor] 40 mg PO HS 03/11/16 [History] Insulin ASPART [Novolog Flexpen] 20 unit SQ TIDWM 03/11/16 [History] Albuterol Sulfate [Ventolin Hfa] 2 puff IH Q4H PRN 06/07/16 [History] Insulin Glargine [Lantus] 70 unit SQ BID 06/07/16 [History] Cetirizine HCl 10 mg PO DAILY 01/03/17 [History] Furosemide [Lasix] 60 mg PO BID #60 tablet 01/05/17 [Rx] Diltiazem CD (24hr) [Cardizem CD] 120 mg PO DAILY #30 tab 03/07/17 [Rx] Isosorbide MONOnitrate (24 HR) [Imdur] 30 mg PO DAILY #30 tab 03/07/17 [Rx] Silvasorb 1 appl TP DAILY #1 tub 03/07/17 [Rx] Metoprolol XL (24 HR) Succ [Toprol Xl] 100 mg PO DAILY 04/22/17 [History] Rivaroxaban [Xarelto] 15 mg PO DAILY 04/22/17 [History] 3 Allergy/AdvReac Type Severity Reaction Status Date / Time No Known Allergies Allergy Verified 01/03/17 12:41 All Systems PM: A 10-system review of systems was performed and is negative for pertinent findings except as documented above in the HPI. - Constitutional Constitutional: chills, fever(s), no night sweats - EENT Eyes: no change in vision, no discharge, no pain, no photophobia Ears: no ear discharge, no ear pain, no tinnitus Nose, mouth and throat: no dysphagia, no nasal discharge, no neck pain, no sore throat - Cardiovascular Cardiovascular ROS IM: no chest pain, no diaphoresis, no dyspnea, no lightheadedness, no palpitations, no syncope - Respiratory Respiratory: no cough, no dyspnea, no wheezing, no excessive phlegm production - Gastrointestinal Gastrointestinal: no abdominal pain, no diarrhea, no hematemesis, no hematochezia, no melena, no nausea, no vomiting - Musculoskeletal Musculoskeletal ROS IM: no numbness, no tingling - Integumentary Integumentary IM: as per HPI, non-healing lesions, skin ulcer, no rash, no unusual bruising - Neurological Neurological ROS: no confusion, no convulsions, no focal weakness, no numbness, no tingling, no tremor(s) - Hematologic/Lymphatic Hematologic/Lymphatic: no easy bruising - Constitutional Vitals: Temp Pulse Resp BP Pulse Ox 98.8 F 87 20 150/77 100 04/22/17 22:01 04/22/17 22:01 04/22/17 22:01 04/22/17 22:01 04/22/17 22:01 General appearance: Present: A&O X 3, pleasant, no acute distress - Head Head exam: Present: atraumatic, normocephalic - Eye Eye exam: Present: PERRL, conjuntiva pink, sclera anicteric Pupils: Present: PERRL - Neck Neck exam general surgery: Present: supple, trachea midline. Absent: lymphadenopathy - Respiratory Respiratory exam: Present: CTAB. Absent: accessory muscle use, rales, rhonchi, wheezes - Cardiovascular Cardiovascular exam: Present: RRR, +S1, +S2. Absent: diastolic murmur, gallop, rubs, systolic murmur - GI/Abdominal GI/Abdominal exam: Present: normal bowel sounds, soft, no peritoneal signs. Absent: distended, tenderness - Extremities Exam Extremities exam: Present: cyanotic (left fourth toe), radial pulses palpable and symmetrical. Absent: calf tenderness, pedal edema - Expanded Lower Extremities Exam Foot/Toe exam: Present: erythema - Neurological Exam Neurological exam: Present: CN II-XII intact, oriented X3, no focal deficits. Absent: pronater drift, facial droop, speech deficit - Skin Skin exam: Present: cyanosis (left fourth toe) Additional comments: foul smelling purulent drainage from base of left 4th toe. Internal Med - H&P Results - Labs CBC & Chem 7: 04/23/17 00:10 Labs: Labs from [facility]: WBC 17.5 Plt 335 Hgv 10.0 Hct 30.2 Na 132 K 4.0 Cl 101 CO2 7 BUN 37 Cr 2.27 Glu 184 Lactate 2.0 <Nell Ramsey - Last Filed: 04/23/17 06:57> Date of Encounter: 04/23/17 Time of Encounter: 01:56 Internal Medicine - H&P: HPI History of present illness: Mr. Mercedes is a 51 year old male All Systems PM: A 10-system review of systems was performed and is negative for pertinent findings except as documented above in the HPI. - Constitutional Vitals: Temp Pulse Resp BP Pulse Ox 98.8 F 87 20 150/77 100 04/22/17 22:01 04/22/17 22:01 04/22/17 22:01 04/22/17 22:01 04/22/17 22:01 Internal Med - H&P Results - Labs CBC & Chem 7: 04/23/17 00:10 04/23/17 00:10 Labs: Short CBC 04/23/17 Range/Units 00:10 WBC 14.9 H (4.3-11.1) K/mcL Hgb 10.3 L (12.9-16.9) g/dL Hct 32.1 L (37.5-50.1) % Plt Count 370 (140-400) K/mcL Neutrophils # 12.4 H (1.6-8.9) K/mcL BMP 04/23/17 00:10 Sodium 133 L Potassium 3.5 Chloride 103 Carbon Dioxide 21 BUN 35 H Creatinine 2.18 H Glucose 123 H Calcium 9.1 - Impressions ITS Impressions Chest X-Ray 04/23/17 00:00 IMPRESSION: Stable chest without acute process. D/ / Kaleb Zhao MD / Kaleb Zhao MD Interpreting Provider: Kaleb Zhao MD - Attending Attestation Pt seen and examined. Transferred from [facility] for necrotic foot ulcer, podiatry, and vascular surgery consulted. Case discussed with ANDREW Cee, I agree with her documented findings, assessment, and plan.
[2017-04-23] MEDS: Furosemide 40 MG TABLET PO SCH ×3 (00:17→16:35)
[2017-04-23] MEDS: Insulin DETEMIR 100 UNIT/ML X5UNITS SQ SCH ×3 (00:17→20:12)
[2017-04-23] MEDS: Insulin LISPRO 300 UNITS/3 ML VIAL SQ SCH ×5 (00:17→20:51)
[2017-04-23 00:19] LABS: Basophils % 0.1 %; Eosinophils # 0.1 K/mcL (0.0-0.6); Eosinophils % 0.9 %; Hematocrit 32.1 % (37.5-50.1); Hemoglobin 10.3 g/dL (12.9-16.9); Immature Granulocytes % 0.5 % (0-4); Immature Platelets 1.3 % (1.1-6.1); Lymphocytes # 1.2 K/mcL (0.6-4.6); Lymphocytes % 8.1 %; Mean Corpuscular HGB Conc 32.1 g/dL (31.6-35.5); Mean Corpuscular Hemoglobin 24.7 pg (28.0-33.3); Mean Platelet Volume 8.8 fL (9.4-12.4); Monocytes % 6.9 %; Neutrophils # 12.4 K/mcL (1.6-8.9); Platelet Count 370 K/mcL (140-400); Red Blood Count 4.17 M/mcL (4.19-5.50); Red Cell Distribution Width 14.1 % (11.5-14.5); Segmented Neutrophils % 83.5 %
[2017-04-23 00:31] LABS: Calcium 9.1 mg/dL (8.6-10.8); Potassium 3.5 mEq/L (3.5-4.5)
[2017-04-23] MEDS ORDERED: Vancomycin 1,750 MG in D5% in Water 500 ML IVPB SCH (01:00)
[2017-04-23] MEDS: Piperacillin/Tazobactam 3.375 GM in D5% in Water (Mini-Bag+) 100 ML IVPB SCH ×3 (03:00→19:50)
[2017-04-23] MEDS ORDERED: Isosorbide MONOnitrate (24 HR) 30 MG TAB.ER.24H PO SCH (09:00)
[2017-04-23] MEDS ORDERED: Diltiazem CD (24hr) 120 MG CAPSULE PO SCH (09:00)
[2017-04-23] MEDS ORDERED: Metoprolol XL (24 HR) Succ 50 MG TAB.ER.24H PO SCH (09:00)
[2017-04-23] MEDS ORDERED: Vancomycin 1,750 MG in D5% in Water 250 ML IVPB SCH (09:00)
[2017-04-23] MEDS ORDERED: Loratadine 10 MG TABLET PO SCH (09:00)
--- NOTE | 2017-04-23 14:11 | General Surgery Consult Note ---
Date of Encounter: 04/23/17 Time of Encounter: 12:30 Assessment and Plan (1) Diabetic foot ulcer with osteomyelitis Current Visit: No Status: Acute We will proceed with urgent amputation of the fourth toe as well as the metatarsal head area the patient will require extended therapy for diabetic foot infection (2) Necrosis of toe Current Visit: Yes Status: Acute Amputation of the fourth toe and metatarsal head. Patient will require extended therapy for diabetic foot infection. History of Present Illness Consult date: 04/23/17 Reason for consult: other (Necrosis and gangrene of the left fourth toe) History of present illness: The patient is a previous patient from wound clinic. He presented to the emergency room with fever and chills. He has tremendous pain in his left foot. His left fourth toe is completely necrotic with ascending cellulitis. Films of the foot demonstrated air in the soft tissues and the distal phalanx. There appears to be evidence of osteomyelitis of the metatarsal head on the fourth digit. He is receiving treatment for diabetes and sepsis and now presents for urgent debridement of osteomyelitis and digit necrosis associated with diabetic foot infection Past Med Surg Social Fam HX - Past Medical History Medical history: atrial fibrillation, CHF, COPD, coronary artery disease, CVA, diabetes, GERD, hyperlipidemia, hypertension, myocardial infarction, renal disease Psychiatric history: anxiety, depression - Past Surgical History Surgical History: coronary bypass (CABG), orthopedic, other, other - Social History Smoking Status: Former smoker Smokeless Tobacco Status: Yes Alcohol use: none Drug use: none - Family History Mother Family Member Ethnicity: Non- Living Status: Hx Family Cardiac Disorders: Yes (HD, HTN, CHF) Hx Family Respiratory Disorders: Yes (COPD, emphysema) Father Family Member Ethnicity: Non- Living Status: Hx Family Cardiac Disorders: Yes (HD, HTN, MS) Brother Family Member Ethnicity: Non- Living Status: Still Living Hx Family Cardiac Disorders: Yes (HD) Hx Family Respiratory Disorders: Yes (COPD) Sister Family Member Ethnicity: Non- Living Status: Still Living Hx Family Endocrine Disorder: Yes (T2DM) Medications and Allergies Ferrous Sulfate 325 mg PO DAILY 03/11/15 [History] Lisinopril [Zestril] 10 mg PO DAILY 05/05/15 [History] Aspirin [Lo-Dose Aspirin EC] 81 mg PO QAM 03/11/16 [History] Atorvastatin [Lipitor] 40 mg PO HS 03/11/16 [History] Insulin ASPART [Novolog Flexpen] 20 unit SQ TIDWM 03/11/16 [History] Albuterol Sulfate [Ventolin Hfa] 2 puff IH Q4H PRN 06/07/16 [History] Insulin Glargine [Lantus] 70 unit SQ BID 06/07/16 [History] Cetirizine HCl 10 mg PO DAILY 01/03/17 [History] Furosemide [Lasix] 60 mg PO BID #60 tablet 01/05/17 [Rx] Diltiazem CD (24hr) [Cardizem CD] 120 mg PO DAILY #30 tab 03/07/17 [Rx] Isosorbide MONOnitrate (24 HR) [Imdur] 30 mg PO DAILY #30 tab 03/07/17 [Rx] Silvasorb 1 appl TP DAILY #1 tub 03/07/17 [Rx] Metoprolol XL (24 HR) Succ [Toprol Xl] 100 mg PO DAILY 04/22/17 [History] Rivaroxaban [Xarelto] 15 mg PO DAILY 04/22/17 [History] 3 Allergy/AdvReac Type Severity Reaction Status Date / Time No Known Allergies Allergy Verified 01/03/17 12:41 Review of Systems All systems PM: A 10-system review of systems was performed and is negative for pertinent findings except as documented above in the HPI. General Surgery Exam Initial Vital Signs Temp Pulse Resp BP Pulse Ox 98.8 F 87 20 150/77 100 04/22/17 22:01 04/22/17 22:01 04/22/17 22:01 04/22/17 22:01 04/22/17 22:01 - General physical appearance chronically ill, obese - Cardiovascular Cardiovascular exam: Present: irregular rhythm, no murmurs/rubs/gallops - Neurologic Present: CN 2-12 grossly intact, other (Diabetic peripheral neuropathy) - Musculoskeletal Present: other (Necrosis of the fourth toe. Evidence of osteomyelitis of the fourth metatarsal head) - Psychiatric Psychiatric general surgery: Present: appropriate, oriented to person, oriented to place, oriented to time, speech is normal, memory intact Exam Initial Vital Signs Temp Pulse Resp BP Pulse Ox 98.8 F 87 20 150/77 100 04/22/17 22:01 04/22/17 22:01 04/22/17 22:01 04/22/17 22:01 04/22/17 22:01 Results - Labs 04/23/17 00:10 04/23/17 00:10 Abnormal lab results WBC 14.9 K/mcL (4.3-11.1) H 04/23/17 00:10 RBC 4.17 M/mcL (4.19-5.50) L 04/23/17 00:10 Hgb 10.3 g/dL (12.9-16.9) L 04/23/17 00:10 Hct 32.1 % (37.5-50.1) L 04/23/17 00:10 MCV 77.0 fL (83.0-100.0) L 04/23/17 00:10 MCH 24.7 pg (28.0-33.3) L 04/23/17 00:10 MPV 8.8 fL (9.4-12.4) L 04/23/17 00:10 Neutrophils # 12.4 K/mcL (1.6-8.9) H 04/23/17 00:10 Sodium 133 mEq/L (136-145) L 04/23/17 00:10 BUN 35 mg/dL (8-26) H 04/23/17 00:10 Creatinine 2.18 mg/dL (0.72-1.25) H 04/23/17 00:10 Est GFR ( Amer) 39 (> 60) L 04/23/17 00:10 Est GFR (Non-Af Amer) 32 (> 60) L 04/23/17 00:10 Glucose 123 mg/dL (70-99) H 04/23/17 00:10 POC Glucose 104 (58-89) H 04/23/17 11:29 Diabetes panel 04/23/17 Range/Units 00:10 Sodium 133 L (136-145) mEq/L Potassium 3.5 (3.5-4.5) mEq/L Chloride 103 (98-109) mEq/L Carbon Dioxide 21 (19-29) mEq/L BUN 35 H (8-26) mg/dL Creatinine 2.18 H (0.72-1.25) mg/dL Glucose 123 H (70-99) mg/dL Calcium 9.1 (8.6-10.8) mg/dL Calcium panel 04/23/17 Range/Units 00:10 Calcium 9.1 (8.6-10.8) mg/dL Pituitary panel 04/23/17 Range/Units 00:10 Sodium 133 L (136-145) mEq/L Potassium 3.5 (3.5-4.5) mEq/L Chloride 103 (98-109) mEq/L Carbon Dioxide 21 (19-29) mEq/L BUN 35 H (8-26) mg/dL Creatinine 2.18 H (0.72-1.25) mg/dL Glucose 123 H (70-99) mg/dL Calcium 9.1 (8.6-10.8) mg/dL Adrenal panel 04/23/17 Range/Units 00:10 Sodium 133 L (136-145) mEq/L Potassium 3.5 (3.5-4.5) mEq/L Chloride 103 (98-109) mEq/L Carbon Dioxide 21 (19-29) mEq/L BUN 35 H (8-26) mg/dL Creatinine 2.18 H (0.72-1.25) mg/dL Glucose 123 H (70-99) mg/dL Calcium 9.1 (8.6-10.8) mg/dL All other labs normal. - Imaging Additional studies: I personally reviewed the plain films of the left foot. The fourth toe has air in the soft tissues and evidence of osteomyelitis Consult Discharge Plan - Plan Referrals: Billie Van, CLOTH SPREADER [Primary Care Provider] -
--- NOTE | 2017-04-23 15:54 | Internal Med Progress Note ---
Date of Encounter: 04/23/17 Time of Encounter: 10:00 - Assessment and plan (1) Sepsis Current Visit: Yes Status: Acute Assessment and plan: Patient has fever with elevated WBC. Left foot Infection. Meet criteria of sepsis. - Antibiotic started, will continue. - Early goal-directed IV fluid resuscitation started. Lactate 1.0 - Closely monitor patient Patient is at high risk because he is on vancomycin, need close monitoring Qualifiers: Sepsis type: sepsis due to unspecified organism Qualified Code(s): A41.9 - Sepsis, unspecified organism (2) Diabetic foot ulcer Current Visit: No Status: Acute Assessment and plan: Patient has diabetic foot infection. With elevated white count and fever. Vanco and Zosyn started. Surgical consul saw patient and plan for surgery of amputation. Qualifiers: Diabetic foot ulcer location: midfoot Diabetes mellitus type: type 2 Laterality: left Non-pressure ulcer stage: limited to breakdown of skin Qualified Code(s): E11.621 - Type 2 diabetes mellitus with foot ulcer; L97.421 - Non-pressure chronic ulcer of left heel and midfoot limited to breakdown of skin (3) Congestive heart failure Current Visit: No Status: Chronic Assessment and plan: Appears euvolemic at this point. Continue home medications Qualifiers: Congestive heart failure type: diastolic Congestive heart failure chronicity: chronic Qualified Code(s): I50.32 - Chronic diastolic (congestive ) heart failure (4) Obstructive sleep apnea Current Visit: Yes Status: Chronic Assessment and plan: Continue CPAP during night (5) Morbid obesity Current Visit: No Status: Chronic Assessment and plan: Need lifestyle modification (6) Atrial fibrillation Current Visit: Yes Status: Chronic Assessment and plan: Heart rate is well controlled. On xarelto for anticoagulation. Xarelto is on hold now because of surgery. May resume after surgery and there is no bleeding. Qualifiers: Atrial fibrillation type: chronic Qualified Code(s): I48.2 - Chronic atrial fibrillation (7) Diabetes Current Visit: No Status: Chronic Assessment and plan: Continue basal and sliding-scale insulin coverage. Qualifiers: Diabetes mellitus type: type 2 Diabetes mellitus complication status: with kidney complications Diabetes mellitus complication detail: with other kidney complication Diabetes mellitus shelter insulin use: with shelter use Qualified Code(s): E11.29 - Type 2 diabetes mellitus with other diabetic kidney complication; Z79.4 - snf (current) use of insulin (8) DVT prophylaxis Current Visit: No Status: Acute Assessment and plan: EPCD. Patient is on Xarelto. (9) CAD (coronary artery disease) Current Visit: Yes Status: Chronic Assessment and plan: Denies chest pain. Continue home medications Qualifiers: Coronary Disease-Associated Artery/Lesion type: [place] artery [place] vs. transplanted heart: [place] heart Associated angina: without angina Qualified Code(s): I25.10 - Atherosclerotic heart disease of [place] coronary artery without angina pectoris (10) Chronic kidney disease, stage III (moderate) Current Visit: Yes Status: Chronic - Subjective Interval history: Patient is a 51-year-old male admitted for diabetic foot infection. Past medical history is significant for A. fib on xarelto, CHF, COPD, CAD, CVA, diabetes, hypertension, hyperlipidemia, CKD Patient was seen and examined. Complained of mild pain on left foot. No fever. Denies shortness of breath or chest pain. Vitals are stable. Continue broad spectrum antibiotic. Surgical consult appreciated and the patient will have amputation. - Constitutional Vitals: Temp Pulse Resp BP Pulse Ox 99.3 F 81 16 116/55 99 04/23/17 15:49 04/23/17 15:49 04/23/17 15:49 04/23/17 15:49 04/23/17 15:49 General appearance: Present: A&O X 3, pleasant, no acute distress - Head Head exam: Present: atraumatic, normocephalic - Eye Eye exam: Present: PERRL, conjuntiva pink, sclera anicteric Pupils: Present: PERRL - Neck Neck exam general surgery: Present: supple, trachea midline. Absent: lymphadenopathy - Respiratory Respiratory exam: Present: CTAB. Absent: accessory muscle use, rales, rhonchi, wheezes - Cardiovascular Cardiovascular exam: Present: RRR, +S1, +S2. Absent: diastolic murmur, gallop, rubs, systolic murmur - GI/Abdominal GI/Abdominal exam: Present: normal bowel sounds, soft, no peritoneal signs. Absent: distended, tenderness - Extremities Exam Extremities exam: Present: warm, radial pulses palpable and symmetrical. Absent : calf tenderness, cyanotic, pedal edema Additional comments: Left foot toe infection, well dressed. - Neurological Exam Neurological exam: Present: CN II-XII intact, oriented X3, no focal deficits. Absent: pronater drift, facial droop, speech deficit - Skin Skin exam: Present: dry, intact Internal Medicine: Result - Labs CBC & Chem 7: 04/23/17 00:10 04/23/17 00:10 Labs: Short CBC 04/23/17 Range/Units 00:10 WBC 14.9 H (4.3-11.1) K/mcL Hgb 10.3 L (12.9-16.9) g/dL Hct 32.1 L (37.5-50.1) % Plt Count 370 (140-400) K/mcL Neutrophils # 12.4 H (1.6-8.9) K/mcL BMP 04/23/17 00:10 Sodium 133 L Potassium 3.5 Chloride 103 Carbon Dioxide 21 BUN 35 H Creatinine 2.18 H Glucose 123 H Calcium 9.1 - Impressions Impressions Chest X-Ray 04/23/17 00:00 IMPRESSION: Stable chest without acute process. D/ / Kaleb Zhao MD / Kaleb Zhao MD Interpreting Provider: Kaleb Zhao MD - VTE Documentation of Mechanical Device: Intermittent pneumatic compression device Consult Discharge Plan - Plan Referrals: Billie Van, SALES DEVELOPMENT SPECIALIST [Primary Care Provider] -
--- NOTE | 2017-04-23 16:10 | Anesthesia Evaluation PreOp ---
Date of Encounter: 04/23/17 Time of Encounter: 16:08 - Past History Planned Operation: Left 4yh toe amputation Cardiac History: Denies any Significant Hx, IA, CHF, HTN, Hyperlipidemia, Arrhythmia (AFib), Cardiac Surgery (CABG x 3), Cardiac Stent Pulmonary History: COPD, MOSES Dx (on CPAP) RN SECURITY History: CVA Other Medical History: Renal (CRD stage III), Diabetes Type II Anesthesia History: No Prior Anesthetic Complications, Past Anesthesia (CABG x 4 2006) Alcohol Use: none Drug use: none Medications and Allergies Ferrous Sulfate 325 mg PO DAILY 03/11/15 [History] Lisinopril [Zestril] 10 mg PO DAILY 05/05/15 [History] Aspirin [Lo-Dose Aspirin EC] 81 mg PO QAM 03/11/16 [History] Atorvastatin [Lipitor] 40 mg PO HS 03/11/16 [History] Insulin ASPART [Novolog Flexpen] 20 unit SQ TIDWM 03/11/16 [History] Albuterol Sulfate [Ventolin Hfa] 2 puff IH Q4H PRN 06/07/16 [History] Insulin Glargine [Lantus] 70 unit SQ BID 06/07/16 [History] Cetirizine HCl 10 mg PO DAILY 01/03/17 [History] Furosemide [Lasix] 60 mg PO BID #60 tablet 01/05/17 [Rx] Diltiazem CD (24hr) [Cardizem CD] 120 mg PO DAILY #30 tab 03/07/17 [Rx] Isosorbide MONOnitrate (24 HR) [Imdur] 30 mg PO DAILY #30 tab 03/07/17 [Rx] Silvasorb 1 appl TP DAILY #1 tub 03/07/17 [Rx] Metoprolol XL (24 HR) Succ [Toprol Xl] 100 mg PO DAILY 04/22/17 [History] Rivaroxaban [Xarelto] 15 mg PO DAILY 04/22/17 [History] 3 Allergy/AdvReac Type Severity Reaction Status Date / Time No Known Allergies Allergy Verified 01/03/17 12:41 - Meds/Allergy Pre-op Review Medications Reviewed: Yes Allergies Reviewed: Yes Beta Blockers on Current Med List: Yes If Beta Blockers taken, Date/Time (Last Dose taken): 08:36 04/23/2017 Anesthesia Results - Labs 04/23/17 00:10 04/23/17 00:10 Cardioversion with ODESSA Name: Giancarlo Mercedes Date of Study: 03/11/2015 Date: 1965 Ht: Indications: Atrial Fibrillation Impressions: Normal LV size and systolic function, LVEF 55-60 % Normal RV size and systolic function. Mildly dilated left atrium. There was no evidence of thrombus in the left atrial appendage. Mildly dilated right atrium. No significant valvular dysfunction. After the ODESSA, the patient was successfully DC cardioverted to sinus rhythm with a synchronized 100J biphasic shock. ODESSA 01/03/17 EF 55% Mod. Pulm HTN Echo 03/05/17 EF-60-65% No sig. Valvular dysfunction No Pulm HTN - Imaging EKG: image reviewed (AFib Mod vent. conduction delay) Anesthesia Exam O2 Sat Height 1.75 m Weight 124.936 kg O2 Sat by Pulse Oximetry 99 O2 Sat by Pulse Oximetry 96 O2 Sat by Pulse Oximetry 99 O2 Sat by Pulse Oximetry 100 Vital Signs Temp Pulse Resp BP Pulse Ox 98.8 F 87 20 150/77 100 04/22/17 22:01 04/22/17 22:01 04/22/17 22:01 04/22/17 22:01 04/22/17 22:01 Vital Signs/O2 Sat, Most Current Temp Pulse Resp BP Pulse Ox 99.3 F 81 16 116/55 99 04/23/17 15:49 04/23/17 15:49 04/23/17 15:49 04/23/17 15:49 04/23/17 15:49 Blood glucose: 89 Height: 5'9'' Weight: 275# NPO (# of Hours): > 8 hrs Pain Scale: 0 Pain Scale Used: Numeric (1 - 10) - HEENT Pupil (Motor): Pupils equal, EOMI Mallampati: III Teeth: Poor dentition Oral Opening: Greater than 3 - RN SECURITY LOC: Oriented RN SECURITY Motor: Normal RUE, Normal LUE, Normal RLE, Normal LLE, Normal Face RN SECURITY Sensory: Normal: RUE, LUE, RLE, LLE, Face - Cardiac Rhythm: Regular Murmur: None JVD: No Carotid Bruit: No Anesthesia Assess/Plan ASA Score: 3 Modified Shiela Scale for Level of Consciousness: Cooperative, oriented, and tranquil
[2017-04-23] MEDS ORDERED: *HR* FentaNYL (PF) 100 MCG/2 ML VIAL ONE ×2 (16:31→17:17)
[2017-04-23] MEDS ORDERED: Ondansetron 4 MG/2 ML VIAL ONE (16:32)
[2017-04-23] MEDS ORDERED: Dexamethasone 4 MG/ML VIAL ONE (16:32)
[2017-04-23] MEDS ORDERED: *HR* Midazolam HCl 2 MG/2 ML VIAL ONE (16:32)
[2017-04-23] MEDS ORDERED: *HR* Propofol 200 MG/20 ML VIAL IVP ONE (16:32)
[2017-04-23] MEDS ORDERED: Lidocaine -MPF 2% 2 ML VIAL ONE (16:32)
[2017-04-23] MEDS ORDERED: *HR* Succinylcholine 200 MG/10 ML VIAL IVP ONE (16:32)
[2017-04-23] MEDS ORDERED: EPHEDrine 50 MG/ML VIAL ONE (17:33)
--- NOTE | 2017-04-23 17:57 | Operative Note ---
Date of procedure: 04/23/17 Pre-op diagnosis: Diabetic foot ulcer and necrotic fourth toe. Post-op diagnosis: other (#1 diabetic foot ulcer #2 necrotic left fourth toe #3 metatarsal osteomyelitis) Procedure: #1 amputation of left fourth toe #2 resection of metatarsal head (osteomyelitis) Anesthesia: VIANEY Surgeon: Richard Rojas Estimated blood loss (cc): 25 Condition: stable Disposition: PACU Procedure in Detail: After informed consent the patient was taken to the major operative suite placed in the supine position and given adequate general anesthetic. The left foot is prepped and draped in sterile fashion utilizing Betadine solution standard draping techniques. Timeout was taken patient was identified. Lateralizing Juan Jose was identified. I made an elliptical incision around the base of the fourth digit and extended this along the dorsum. I opened down to the level of the extensor tendons. I circumferentially dissected the digit down to the metatarsal phalangeal joint and divided the attachments to the plantar tissues and the tendons. The digit was completely necrotic. The digit was then amputated. The head of the metatarsal was actually angulated 90 degrees toward the dorsum of the foot because of complete disruption of the shaft of the metatarsal secondary to osteomyelitis. I dissected back to the mid shaft metatarsal and divided the metatarsal at this level and at this level the bone was in excellent condition. The abnormal bone was completely removed. It is noted that the patient had a completely necrotic fourth toe and there was also an opening on the plantar aspect of the foot about 7 mm circular. This is over the exact area of osteomyelitis at the base of the metatarsal head on the fourth digit. I left the skin intact between the amputation and the plantar ulcer. The plantar ulcer was circumferentially debrided. I then debrided all of the soft tissues in the bed of the fourth digit that were mcneil and necrotic. At the end of the dissection all tissue planes were bleeding and all necrotic tissue had been removed and electrocautery was used for hemostasis. I decided not to close the wound. This was packed with iodoform it will later be treated with wound VAC.
--- NOTE | 2017-04-23 18:30 | Anesthesia Evaluation Post Op ---
Date of Encounter: 04/23/17 Time of Encounter: 18:29 - Vital Signs Vital Signs: Vital Signs/O2 Sat, Most Current Temp Pulse Resp BP Pulse Ox 99.3 F 64 20 128/64 99 04/23/17 18:26 04/23/17 18:26 04/23/17 18:26 04/23/17 18:04/23/17 18:26 - Lungs Lungs: Clear Ascult./Percussion - Airway Airway: Non-obstructed - Cardiovascular Regular Rate - Mental Status Mental Status: Alert & Oriented, Answers Appropriately - Pain Pain Scale: 0 Pain Scale used: Numeric (1 - 10) - Nausea Vomiting Nausea Vomiting: Not Present - Hydration Hydration: NPO, Has not voided - Discharge PostOp Status: Transfer Patient to floor
[2017-04-23] MEDS ORDERED: D5% in Water 1,000 ML IVC PRN (18:39)
[2017-04-23] MEDS ORDERED: Ondansetron 4 MG/2 ML VIAL IVP PRN (18:39)
[2017-04-23] MEDS ORDERED: *HR* OxyCODONE/APAP 10/325 TABLET PO PRN (18:39)
[2017-04-23] MEDS ORDERED: Acetaminophen 325 MG TABLET PO PRN (18:39)
[2017-04-23] MEDS ORDERED: Naloxone 0.4 MG/ML INJ IVP PRN (18:39)
[2017-04-23] MEDS ORDERED: Dextrose Gel 15 GM PO PRN ×2 (18:39)
[2017-04-23] MEDS ORDERED: *HR* Dextrose 50 % in Water (Syg) 50 ML SYRINGE IVP PRN (18:39)
[2017-04-23] MEDS ORDERED: *HR* Morphine 2 MG/ML SYRINGE IVP PRN (18:39)
[2017-04-23] MEDS: *HR* HYDROcodone/Acet 5/325 mg TABLET PO PRN (19:49)
[2017-04-24] MEDS ORDERED: Insulin LISPRO 300 UNITS/3 ML VIAL SQ SCH
[2017-04-24] MEDS: Vancomycin 1,750 MG in D5% in Water 500 ML IVPB SCH (01:49)
[2017-04-24] MEDS: Piperacillin/Tazobactam 3.375 GM in D5% in Water (Mini-Bag+) 100 ML IVPB SCH ×3 (04:10→18:39)
[2017-04-24 05:20] LABS: Basophils % 0.1 %; Immature Granulocytes % 0.7 % (0-4); Lymphocytes # 0.5 K/mcL (0.6-4.6); Lymphocytes % 5.4 %; Mean Corpuscular HGB Conc 31.4 g/dL (31.6-35.5); Mean Corpuscular Hemoglobin 24.9 pg (28.0-33.3); Mean Corpuscular Volume 79.4 fL (83.0-100.0); Mean Platelet Volume 9.4 fL (9.4-12.4); Monocytes # 0.2 K/mcL (0.0-1.3); Monocytes % 2.5 %; Neutrophils # 8.2 K/mcL (1.6-8.9); Platelet Count 327 K/mcL (140-400); Red Blood Count 4.41 M/mcL (4.19-5.50); Red Cell Distribution Width 14.2 % (11.5-14.5); Segmented Neutrophils % 91.3 %
[2017-04-24 05:47] LABS: Calcium 9.1 mg/dL (8.6-10.8); Potassium 4.4 mEq/L (3.5-4.5)
[2017-04-24] MEDS: Insulin LISPRO 300 UNITS/3 ML VIAL SQ SCH ×4 (08:13→23:27)
[2017-04-24] MEDS: Diltiazem CD (24hr) 120 MG CAPSULE PO SCH (08:14)
[2017-04-24] MEDS: Furosemide 40 MG TABLET PO SCH ×2 (08:14→17:16)
[2017-04-24] MEDS: Isosorbide MONOnitrate (24 HR) 30 MG TAB.ER.24H PO SCH (08:15)
[2017-04-24] MEDS: Loratadine 10 MG TABLET PO SCH (08:15)
[2017-04-24] MEDS: Metoprolol XL (24 HR) Succ 50 MG TAB.ER.24H PO SCH (08:15)
[2017-04-24] MEDS: Insulin DETEMIR 100 UNIT/ML X5UNITS SQ SCH ×2 (08:25→23:27)
--- NOTE | 2017-04-24 08:47 | Electrocardiograph Report ---
[address] [address] Test Date: 2017-04-23 Pat Name: Giancarlo Mercedes Department: 114 Room: [facility] Gender: M Residence Life Director: [id number] : 1965 Requested By: Debbie Cee Order Number: [id number] Reading MD: Sabrina Bro Measurements Intervals [place] Rate: 81 P: UT: 0 QRS: -8 QRSD: 125 T: 22 QT: 420 QTc: 457 Interpretive Statements ATRIAL FIBRILLATION INTRAVENTRICULAR CONDUCTION DELAY LEFTWARD AXIS NONSPECIFIC ST & T-WAVE ABNORMALITY ABNORMAL RHYTHM ECG Electronically Signed On 04-23-2017 17:18:08 EDT by Sabrina Bro
--- NOTE | 2017-04-24 13:53 | General Surgery Progress Note ---
<Naina Mulligan - Last Filed: 04/24/17 13:51> Date of Encounter: 04/24/17 Time of Encounter: 13:51 - Assessment and Plan (1) Osteomyelitis Current Visit: Yes Status: Acute POD #1 4th toe amputation (Left) foot. Denies discomfort at this time. Dressing taken down, repacked with iodoform gauze. No s/s of infection noted. Daily wound care: Beginning 04/25/2017: remove packing, irrigate with normal saline. Repack with 1/2 inch iodoform gauze and cover with Kerlix. Replace Mario bandage. Beginning 04/27/2017: Continue wound care and change iodoform to calcium alginate; will eventually transition to wound vac. Wear Post-operative shoe when out of bed. Non-weightbearing to left lower extremity. Ambulate with walker or crutches per PT/OT eval and treat. Ok to resume Xarelto 04/24/2017. Qualifiers: Osteomyelitis type: unspecified type Osteomyelitis location: foot Laterality: left Qualified Code(s): M86.9 - Osteomyelitis, unspecified (2) DVT prophylaxis Current Visit: Yes Status: Acute Ok to resume Xarelto (3) Type 2 diabetes mellitus Current Visit: Yes Status: Acute Management per medicine. Qualifiers: Diabetes mellitus complication status: with skin complications Diabetes mellitus complication detail: with foot ulcer Diabetes mellitus mcfp insulin use: with mcfp use Qualified Code(s): E11.621 - Type 2 diabetes mellitus with foot ulcer; L97.509 - Non-pressure chronic ulcer of other part of unspecified foot with unspecified severity; Z79.4 - intermediate (current) use of insulin Subjective Patient reports: no new complaints, feels better, still having pain, pain is less, tolerating a regular diet, voiding w/o difficulty, afebrile Objective Vital Signs - Last 8 Hours Temp Pulse Resp BP Pulse Ox 04/24/17 10:49 96.8 F L 48 14 147/67 98 04/24/17 07:38 97.4 F L 90 16 129/83 99 Intake and Output 04/23/17 04/24/17 04/24/17 23:59 07:59 15:59 Intake Total 700 / 700 400 / 400 1200 / 1200 Output Total 525 / 525 1000 / 1000 500 / 500 Balance 175 / 175 -600 / -600 700 / 700 Intake: IV Fluids 200 / 200 600 / 600 Zosyn 3.375 GM In Dextrose 5% ( 200 / 200 100 / 100 Minibag+) 100 ML 100 ML @ 25 mls/hr IVPB Q8H [facility] Rx#: [id number] Vancocin 1,750 MG In Dextrose 5 500 / 500 % 500 ML @ 333.333 mls/hr IVPB Q24H [facility] Rx#:[id number] Oral 500 / 500 400 / 400 600 / 600 Output: Urine 500 / 500 1000 / 1000 500 / 500 Estimated Blood Loss Other: Meal Dinner Lunch Percent of Meal Consumed 100% 100% Blood Glucose* 231 381 440 - General physical appearance well nourished, no distress, no pain - ENT atraumatic, normocephalic - Neck Neck exam: trachea midline - Respiratory normal expansion, normal respiratory effort, clear to auscultation - Cardiovascular Cardiovascular exam: Present: RRR - Abdomen Abdomen: Present: bowel sounds present, soft, non tender - Incision Incision: Present: open (Right 4th toe amuptation site: packing removed and replaced. Wound beds are pink and moist. No s/s of infection noted.) - Integumentary no rash - Neurologic CN 2-12 grossly intact - Musculoskeletal normal posture - Psychiatric oriented to time, oriented to person, oriented to place, speech is normal, memory intact - Labs 04/24/17 04:54 04/24/17 04:54 Diabetes panel 04/24/17 Range/Units 04:54 Sodium 131 L (136-145) mEq/L Potassium 4.4 (3.5-4.5) mEq/L Chloride 98 (98-109) mEq/L Carbon Dioxide 23 (19-29) mEq/L BUN 38 H (8-26) mg/dL Creatinine 2.50 H (0.72-1.25) mg/dL Glucose 399 H (70-99) mg/dL Calcium 9.1 (8.6-10.8) mg/dL Calcium panel 04/24/17 Range/Units 04:54 Calcium 9.1 (8.6-10.8) mg/dL Pituitary panel 04/24/17 Range/Units 04:54 Sodium 131 L (136-145) mEq/L Potassium 4.4 (3.5-4.5) mEq/L Chloride 98 (98-109) mEq/L Carbon Dioxide 23 (19-29) mEq/L BUN 38 H (8-26) mg/dL Creatinine 2.50 H (0.72-1.25) mg/dL Glucose 399 H (70-99) mg/dL Calcium 9.1 (8.6-10.8) mg/dL Adrenal panel 04/24/17 Range/Units 04:54 Sodium 131 L (136-145) mEq/L Potassium 4.4 (3.5-4.5) mEq/L Chloride 98 (98-109) mEq/L Carbon Dioxide 23 (19-29) mEq/L BUN 38 H (8-26) mg/dL Creatinine 2.50 H (0.72-1.25) mg/dL Glucose 399 H (70-99) mg/dL Calcium 9.1 (8.6-10.8) mg/dL - VTE Documentation of Mechanical Device: Intermittent pneumatic compression device Consult Discharge Plan - Plan Referrals: Billie Van, [facility]PER [Primary Care Provider] - <Richard Rojas - Last Filed: 04/24/17 15:22> Date of Encounter: 04/24/17 - Assessment and Plan (1) Diabetic foot ulcer with osteomyelitis Current Visit: No Status: Acute (2) Necrosis of toe Current Visit: Yes Status: Acute Objective Vital Signs - Last 8 Hours Temp Pulse Resp BP Pulse Ox 04/24/17 14:26 97.0 F L 75 14 146/83 98 04/24/17 10:49 96.8 F L 48 14 147/67 98 04/24/17 07:38 97.4 F L 90 16 129/83 99 Intake and Output 04/23/17 04/24/17 04/24/17 23:59 07:59 15:59 Intake Total 700 / 700 400 / 400 1300 / 1300 Output Total 525 / 525 1000 / 1000 500 / 500 Balance 175 / 175 -600 / -600 800 / 800 Intake: IV Fluids 200 / 200 700 / 700 Zosyn 3.375 GM In Dextrose 5% ( 200 / 200 200 / 200 Minibag+) 100 ML 100 ML @ 25 mls/hr IVPB Q8H [facility] Rx#: [id number] Vancocin 1,750 MG In Dextrose 5 500 / 500 % 500 ML @ 333.333 mls/hr IVPB Q24H [facility] Rx#:[id number] Oral 500 / 500 400 / 400 600 / 600 Output: Urine 500 / 500 1000 / 1000 500 / 500 Estimated Blood Loss Other: Meal Dinner Lunch Percent of Meal Consumed 100% 100% Blood Glucose* 231 381 440 - Labs 04/24/17 04:54 04/24/17 04:54 Diabetes panel 04/24/17 Range/Units 04:54 Sodium 131 L (136-145) mEq/L Potassium 4.4 (3.5-4.5) mEq/L Chloride 98 (98-109) mEq/L Carbon Dioxide 23 (19-29) mEq/L BUN 38 H (8-26) mg/dL Creatinine 2.50 H (0.72-1.25) mg/dL Glucose 399 H (70-99) mg/dL Calcium 9.1 (8.6-10.8) mg/dL Calcium panel 04/24/17 Range/Units 04:54 Calcium 9.1 (8.6-10.8) mg/dL Pituitary panel 04/24/17 Range/Units 04:54 Sodium 131 L (136-145) mEq/L Potassium 4.4 (3.5-4.5) mEq/L Chloride 98 (98-109) mEq/L Carbon Dioxide 23 (19-29) mEq/L BUN 38 H (8-26) mg/dL Creatinine 2.50 H (0.72-1.25) mg/dL Glucose 399 H (70-99) mg/dL Calcium 9.1 (8.6-10.8) mg/dL Adrenal panel 04/24/17 Range/Units 04:54 Sodium 131 L (136-145) mEq/L Potassium 4.4 (3.5-4.5) mEq/L Chloride 98 (98-109) mEq/L Carbon Dioxide 23 (19-29) mEq/L BUN 38 H (8-26) mg/dL Creatinine 2.50 H (0.72-1.25) mg/dL Glucose 399 H (70-99) mg/dL Calcium 9.1 (8.6-10.8) mg/dL - Attending Attestation I have personally performed a face to face evaluation on this patient. I have reviewed and agree with the care plan. History and Exam by me shows: The patient is seen and evaluated on morning rounds with the resident. The treatment plan was discussed with the clinical nurse practitioner. Physical examination demonstrates the wound is clean and dry. There is very little drainage. We will continue with iodoform packing for another 24 hours and then transitioned to calcium alginate. Once the wound is granulated we will use negative pressure wound therapy. He is to be nonweightbearing on the left foot. He should ambulate with crutches or in a wheelchair Richard Rojas MD FACS
--- NOTE | 2017-04-24 19:22 | Internal Med Progress Note ---
Date of Encounter: 04/24/17 Time of Encounter: 10:00 - Assessment and plan (1) Sepsis Current Visit: Yes Status: Acute Assessment and plan: Patient has fever with elevated WBC. Left foot Infection. Meet criteria of sepsis. - Antibiotic started, will continue. - Early goal-directed IV fluid resuscitation started. Lactate 1.0 - Closely monitor patient Patient is at high risk because he is on vancomycin, need close monitoring Qualifiers: Sepsis type: sepsis due to unspecified organism Qualified Code(s): A41.9 - Sepsis, unspecified organism (2) Diabetic foot ulcer Current Visit: No Status: Acute Assessment and plan: Patient has diabetic foot infection. With elevated white count and fever. Vanco and Zosyn started. Surgical consul saw patient and had surgery of amputation. Qualifiers: Diabetic foot ulcer location: midfoot Diabetes mellitus type: type 2 Laterality: left Non-pressure ulcer stage: limited to breakdown of skin Qualified Code(s): E11.621 - Type 2 diabetes mellitus with foot ulcer; L97.421 - Non-pressure chronic ulcer of left heel and midfoot limited to breakdown of skin (3) Congestive heart failure Current Visit: No Status: Chronic Assessment and plan: Appears euvolemic at this point. Continue home medications Qualifiers: Congestive heart failure type: diastolic Congestive heart failure chronicity: chronic Qualified Code(s): I50.32 - Chronic diastolic (congestive ) heart failure (4) Obstructive sleep apnea Current Visit: Yes Status: Chronic Assessment and plan: Continue CPAP during night (5) Morbid obesity Current Visit: No Status: Chronic Assessment and plan: Need lifestyle modification (6) Atrial fibrillation Current Visit: Yes Status: Chronic Assessment and plan: Heart rate is well controlled. On xarelto renal dose for anticoagulation. Qualifiers: Atrial fibrillation type: chronic Qualified Code(s): I48.2 - Chronic atrial fibrillation (7) Diabetes Current Visit: No Status: Chronic Assessment and plan: Continue basal and sliding-scale insulin coverage. Adjust the dose of insulin to get adequate blood sugar control Qualifiers: Diabetes mellitus type: type 2 Diabetes mellitus complication status: with kidney complications Diabetes mellitus complication detail: with other kidney complication Diabetes mellitus penitentiary insulin use: with penitentiary use Qualified Code(s): E11.29 - Type 2 diabetes mellitus with other diabetic kidney complication; Z79.4 - buttermaker continuous churn (current) use of insulin (8) DVT prophylaxis Current Visit: No Status: Acute Assessment and plan: EPCD. Patient is on Xarelto. (9) CAD (coronary artery disease) Current Visit: Yes Status: Chronic Assessment and plan: Denies chest pain. Continue home medications Qualifiers: Coronary Disease-Associated Artery/Lesion type: [place] artery [place] vs. transplanted heart: [place] heart Associated angina: without angina Qualified Code(s): I25.10 - Atherosclerotic heart disease of [place] coronary artery without angina pectoris (10) Chronic kidney disease, stage III (moderate) Current Visit: Yes Status: Chronic Assessment and plan: Avoid the nephrotoxic medications - Time Spent With Patient Greater than 35 minutes - Subjective Interval history: Patient is a 51-year-old male admitted for diabetic foot infection. Past medical history is significant for A. fib on xarelto, CHF, COPD, CAD, CVA, diabetes, hypertension, hyperlipidemia, CKD Patient was seen and examined. No pain on left foot. No fever. Denies shortness of breath or chest pain. Vitals are stable. Continue broad spectrum antibiotic. Surgical consult on case, patient had amputation yesterday. - Constitutional Vitals: Temp Pulse Resp BP Pulse Ox 97.3 F L 77 15 137/71 98 04/24/17 19:14 04/24/17 19:14 04/24/17 19:14 04/24/17 19:14 04/24/17 19:14 General appearance: Present: A&O X 3, pleasant, no acute distress - Head Head exam: Present: atraumatic, normocephalic - Eye Eye exam: Present: PERRL, conjuntiva pink, sclera anicteric Pupils: Present: PERRL - Neck Neck exam general surgery: Present: supple, trachea midline. Absent: lymphadenopathy - Respiratory Respiratory exam: Present: CTAB. Absent: accessory muscle use, rales, rhonchi, wheezes - Cardiovascular Cardiovascular exam: Present: RRR, +S1, +S2. Absent: diastolic murmur, gallop, rubs, systolic murmur - GI/Abdominal GI/Abdominal exam: Present: normal bowel sounds, soft, no peritoneal signs. Absent: distended, tenderness - Extremities Exam Extremities exam: Present: warm, radial pulses palpable and symmetrical. Absent : calf tenderness, cyanotic, pedal edema Additional comments: Left foot S/p toe amputation, well dressed - Neurological Exam Neurological exam: Present: CN II-XII intact, oriented X3, no focal deficits. Absent: pronater drift, facial droop, speech deficit - Skin Skin exam: Present: dry, intact Internal Medicine: Result - Labs CBC & Chem 7: 04/24/17 04:54 04/24/17 04:54 Labs: Short CBC 04/24/17 Range/Units 04:54 WBC 9.0 (4.3-11.1) K/mcL Hgb 11.0 L (12.9-16.9) g/dL Hct 35.0 L (37.5-50.1) % Plt Count 327 (140-400) K/mcL Neutrophils # 8.2 (1.6-8.9) K/mcL BMP 04/24/17 04:54 Sodium 131 L Potassium 4.4 Chloride 98 Carbon Dioxide 23 BUN 38 H Creatinine 2.50 H Glucose 399 H Calcium 9.1 - VTE Documentation of Mechanical Device: Intermittent pneumatic compression device Consult Discharge Plan - Plan Referrals: Billie Van, [facility] [Primary Care Provider] -
[2017-04-24] MEDS ORDERED: Insulin DETEMIR 100 UNIT/ML X5UNITS SQ SCH (21:00)
[2017-04-25 00:45] LABS: Basophils % 0.1 %; Eosinophils % 0.1 %; Hemoglobin 10.8 g/dL (12.9-16.9); Immature Granulocytes % 0.5 % (0-4); Immature Platelets 1.7 % (1.1-6.1); Lymphocytes # 0.9 K/mcL (0.6-4.6); Lymphocytes % 6.2 %; Mean Corpuscular HGB Conc 32.7 g/dL (31.6-35.5); Mean Corpuscular Hemoglobin 25.4 pg (28.0-33.3); Mean Corpuscular Volume 77.6 fL (83.0-100.0); Mean Platelet Volume 9.5 fL (9.4-12.4); Monocytes # 0.9 K/mcL (0.0-1.3); Monocytes % 6.1 %; Platelet Count 399 K/mcL (140-400); Red Blood Count 4.25 M/mcL (4.19-5.50); Red Cell Distribution Width 14.1 % (11.5-14.5)
[2017-04-25 00:48] LABS: Neutrophils # 12.3 K/mcL (1.6-8.9)
[2017-04-25 00:57] LABS: Calcium 9.3 mg/dL (8.6-10.8); Potassium 4.2 mEq/L (3.5-4.5)
[2017-04-25] MEDS: Piperacillin/Tazobactam 3.375 GM in D5% in Water (Mini-Bag+) 100 ML IVPB SCH ×2 (03:23→12:19)
[2017-04-25] MEDS: Loratadine 10 MG TABLET PO SCH (07:59)
[2017-04-25] MEDS: Metoprolol XL (24 HR) Succ 50 MG TAB.ER.24H PO SCH (07:59)
[2017-04-25] MEDS: Diltiazem CD (24hr) 120 MG CAPSULE PO SCH (07:59)
[2017-04-25] MEDS: Isosorbide MONOnitrate (24 HR) 30 MG TAB.ER.24H PO SCH (08:00)
[2017-04-25] MEDS: *HR* Rivaroxaban 15 MG TABLET PO SCH (08:00)
[2017-04-25] MEDS: Furosemide 40 MG TABLET PO SCH ×2 (08:00→16:23)
[2017-04-25] MEDS: Insulin LISPRO 300 UNITS/3 ML VIAL SQ SCH ×5 (08:01→20:17)
[2017-04-25] MEDS ORDERED: Aminoglycoside Consult 1 EACH MC ONE (08:08)
[2017-04-25] MEDS: Insulin DETEMIR 100 UNIT/ML X5UNITS SQ SCH ×2 (08:12→20:17)
[2017-04-25] MEDS ORDERED: Vancomycin 1,250 MG in D5% in Water 250 ML IVPB SCH (09:00)
--- NOTE | 2017-04-25 12:03 | General Surgery Progress Note ---
<Naina Mulligan - Last Filed: 04/25/17 12:22> Date of Encounter: 04/25/17 Time of Encounter: 12:02 - Assessment and Plan (1) Osteomyelitis Current Visit: Yes Status: Acute POD #2 4th toe amputation (Left) foot. Denies discomfort at this time. Dressing taken down, repacked with iodoform gauze. No s/s of infection noted. Daily wound care: Beginning 04/25/2017: remove packing, irrigate with normal saline. Repack with 1/2 inch iodoform gauze and cover with Kerlix. Replace Mario bandage. Beginning 04/27/2017: Continue wound care and change iodoform to calcium alginate (expected for aprox 1 week); will eventually transition to wound vac. Wear Post-operative shoe when out of bed. Non-weightbearing to left lower extremity. Ambulate with walker or crutches per PT/OT eval and treat. Will add Miralax as patient is concerned about feeling constipated in a post- surgical setting. Ok to resume Xarelto 04/24/2017. Anticipate, D/c planning per PT/OT recommendations, in the next 48 to 72 hours. He will need follow-up in wound care with Dr. Rojas. Qualifiers: Osteomyelitis type: unspecified type Osteomyelitis location: foot Laterality: left Qualified Code(s): M86.9 - Osteomyelitis, unspecified (2) DVT prophylaxis Current Visit: Yes Status: Acute Ok to resume Xarelto (3) Type 2 diabetes mellitus Current Visit: Yes Status: Acute Management per medicine. Qualifiers: Diabetes mellitus complication status: with skin complications Diabetes mellitus complication detail: with foot ulcer Diabetes mellitus wood finisher insulin use: with skilled nursing use Qualified Code(s): E11.621 - Type 2 diabetes mellitus with foot ulcer; L97.509 - Non-pressure chronic ulcer of other part of unspecified foot with unspecified severity; Z79.4 - glassware verifier (current) use of insulin Subjective Patient reports: no new complaints, feels better, still having pain, pain is less, voiding w/o difficulty, flatus, no bowel movement, afebrile Objective Vital Signs - Last 8 Hours Temp Pulse Resp BP Pulse Ox 04/25/17 07:22 97.7 F 69 18 138/87 98 Intake and Output 04/24/17 04/25/1717 23:59 07:59 15:59 Intake Total 100 / 100 800 / 800 Output Total 1100 / 1100 1050 / 1050 Balance -1000 / -1000 -250 / -250 Intake: IV Fluids 100 / 100 Zosyn 3.375 GM In Dextrose 5% ( 100 / 100 Minibag+) 100 ML 100 ML @ 25 mls/hr IVPB Q8H [facility] Rx#: [id number] Oral 0 / 0 800 / 800 Output: Urine 1100 / 1100 1050 / 1050 Other: Weight 125.8 kg Blood Glucose* 387 309 Patient Weight 04/25/17 23:59 Weight 125.8 kg - General physical appearance well nourished, no distress, no pain - Eyes normal ocular movement - ENT atraumatic, normocephalic - Neck Neck exam: no venous distension - Respiratory normal expansion, normal respiratory effort, clear to auscultation - Cardiovascular Cardiovascular exam: Present: RRR, distant heart sounds - Abdomen Abdomen: Present: bowel sounds present, soft, non tender - Incision Incision: Present: open (Left 4th toe amp site WNL. Repacked and redressed) - Integumentary no rash - Musculoskeletal normal posture, other (Has not been out of bed) - Psychiatric oriented to time, oriented to person, oriented to place, memory intact - Labs 04/25/17 00:38 04/25/17 00:38 Diabetes panel 04/25/17 Range/Units 00:38 Sodium 131 L (136-145) mEq/L Potassium 4.2 (3.5-4.5) mEq/L Chloride 97 L (98-109) mEq/L Carbon Dioxide 22 (19-29) mEq/L BUN 44 H (8-26) mg/dL Creatinine 2.40 H (0.72-1.25) mg/dL Glucose 353 H (70-99) mg/dL Calcium 9.3 (8.6-10.8) mg/dL Calcium panel 04/25/17 Range/Units 00:38 Calcium 9.3 (8.6-10.8) mg/dL Pituitary panel 04/25/17 Range/Units 00:38 Sodium 131 L (136-145) mEq/L Potassium 4.2 (3.5-4.5) mEq/L Chloride 97 L (98-109) mEq/L Carbon Dioxide 22 (19-29) mEq/L BUN 44 H (8-26) mg/dL Creatinine 2.40 H (0.72-1.25) mg/dL Glucose 353 H (70-99) mg/dL Calcium 9.3 (8.6-10.8) mg/dL Adrenal panel 04/25/17 Range/Units 00:38 Sodium 131 L (136-145) mEq/L Potassium 4.2 (3.5-4.5) mEq/L Chloride 97 L (98-109) mEq/L Carbon Dioxide 22 (19-29) mEq/L BUN 44 H (8-26) mg/dL Creatinine 2.40 H (0.72-1.25) mg/dL Glucose 353 H (70-99) mg/dL Calcium 9.3 (8.6-10.8) mg/dL - VTE Documentation of Mechanical Device: Intermittent pneumatic compression device Consult Discharge Plan - Plan Referrals: Billie Van, REFRIGERATOR REPAIR TECHNICIAN [Primary Care Provider] - <Richard Rojas - Last Filed: 04/25/17 14:12> Date of Encounter: 04/25/17 - Assessment and Plan (1) Diabetic foot ulcer with osteomyelitis Current Visit: No Status: Acute (2) Necrosis of toe Current Visit: Yes Status: Acute Objective Vital Signs - Last 8 Hours Temp Pulse Resp BP Pulse Ox 04/25/17 12:20 97.6 F 62 18 147/65 96 04/25/17 07:22 97.7 F 69 18 138/87 98 Intake and Output 04/24/17 04/25/17 04/25/17 23:59 07:59 15:59 Intake Total 100 / 100 900 / 900 480 / 480 Output Total 1100 / 1100 1050 / 1050 0 / 0 Balance -1000 / -1000 -150 / -150 480 / 480 Intake: IV Fluids 100 / 100 100 / 100 Zosyn 3.375 GM In Dextrose 5% ( 100 / 100 100 / 100 Minibag+) 100 ML 100 ML @ 25 mls/hr IVPB Q8H [facility] Rx#: [id number] Oral 0 / 0 800 / 800 480 / 480 Output: Urine 1100 / 1100 1050 / 1050 0 / 0 Other: Meal Lunch Percent of Meal Consumed 100% Weight 125.8 kg Blood Glucose* 387 309 370 Patient Weight 04/25/17 23:59 Weight 125.8 kg - Labs 04/25/17 00:38 04/25/17 00:38 Diabetes panel 04/25/17 Range/Units 00:38 Sodium 131 L (136-145) mEq/L Potassium 4.2 (3.5-4.5) mEq/L Chloride 97 L (98-109) mEq/L Carbon Dioxide 22 (19-29) mEq/L BUN 44 H (8-26) mg/dL Creatinine 2.40 H (0.72-1.25) mg/dL Glucose 353 H (70-99) mg/dL Calcium 9.3 (8.6-10.8) mg/dL Calcium panel 04/25/17 Range/Units 00:38 Calcium 9.3 (8.6-10.8) mg/dL Pituitary panel 04/25/17 Range/Units 00:38 Sodium 131 L (136-145) mEq/L Potassium 4.2 (3.5-4.5) mEq/L Chloride 97 L (98-109) mEq/L Carbon Dioxide 22 (19-29) mEq/L BUN 44 H (8-26) mg/dL Creatinine 2.40 H (0.72-1.25) mg/dL Glucose 353 H (70-99) mg/dL Calcium 9.3 (8.6-10.8) mg/dL Adrenal panel 04/25/17 Range/Units 00:38 Sodium 131 L (136-145) mEq/L Potassium 4.2 (3.5-4.5) mEq/L Chloride 97 L (98-109) mEq/L Carbon Dioxide 22 (19-29) mEq/L BUN 44 H (8-26) mg/dL Creatinine 2.40 H (0.72-1.25) mg/dL Glucose 353 H (70-99) mg/dL Calcium 9.3 (8.6-10.8) mg/dL - Attending Attestation I have personally performed a face to face evaluation on this patient. I have reviewed and agree with the care plan. History and Exam by me shows: The patient is seen and evaluated on morning rounds. He is having no postoperative pain. The wound bed is red and pink. We will transition from iodoform to calcium alginate tomorrow. He is to be nonweightbearing on the left foot. Richard Rojas MD FACS
[2017-04-25] MEDS: Levofloxacin 750 MG/150 ML 750 MG/150 ML BAG IVPB SCH (13:08)
--- NOTE | 2017-04-25 17:27 | Internal Med Progress Note ---
Date of Encounter: 04/25/17 Time of Encounter: 12:00 - Assessment and plan (1) Diabetic foot ulcer with osteomyelitis Current Visit: No Status: Acute Assessment and plan: -POD #2 4th toe amputation (Left) foot. -Podiatry following with recommendations for daily wound care -Further recommendations for non-weight bearing to left lower extremity; ambulate with walker or crutches per PT/OT evaluation/treatment. (2) Acute kidney injury superimposed on CKD Current Visit: Yes Status: Acute Assessment and plan: -Stable; continue to monitor. (3) Congestive heart failure Current Visit: No Status: Chronic Assessment and plan: -Patient euvolemic; will continue to monitor. Qualifiers: Congestive heart failure type: diastolic Congestive heart failure chronicity: chronic Qualified Code(s): I50.32 - Chronic diastolic (congestive ) heart failure (4) Atrial fibrillation Current Visit: Yes Status: Chronic Assessment and plan: -Rate controlled; continue home medications and anticoagulation with Xarelto. Qualifiers: Atrial fibrillation type: chronic Qualified Code(s): I48.2 - Chronic atrial fibrillation (5) Obstructive sleep apnea Current Visit: Yes Status: Chronic Assessment and plan: Continue CPAP during night (6) Morbid obesity Current Visit: No Status: Chronic Assessment and plan: Lifestyle modifications. (7) Type 2 diabetes mellitus Current Visit: Yes Status: Acute Assessment and plan: -Blood glucose relatively controlled; continue home medications. 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 - Subjective Interval history: Patient without any issues or complaints this morning and no acute events overnight. - Constitutional Vitals: Temp Pulse Resp BP Pulse Ox 97.4 F L 80 18 131/78 98 04/25/17 15:10 04/25/17 15:10 04/25/17 15:10 04/25/17 15:10 04/25/17 15:10 General appearance: Present: A&O X 3, pleasant, no acute distress - Respiratory Respiratory exam: Present: CTAB. Absent: accessory muscle use, rales, rhonchi, wheezes - Cardiovascular Cardiovascular exam: Present: RRR, +S1, +S2. Absent: diastolic murmur, gallop, rubs, systolic murmur Internal Medicine: Result - Labs CBC & Chem 7: 04/25/17 00:38 04/25/17 00:38 Labs: Short CBC 04/25/17 Range/Units 00:38 WBC 14.1 H D (4.3-11.1) K/mcL Hgb 10.8 L (12.9-16.9) g/dL Hct 33.0 L (37.5-50.1) % Plt Count 399 (140-400) K/mcL Neutrophils # 12.3 H (1.6-8.9) K/mcL BMP 04/25/17 00:38 Sodium 131 L Potassium 4.2 Chloride 97 L Carbon Dioxide 22 BUN 44 H Creatinine 2.40 H Glucose 353 H Calcium 9.3 - VTE Documentation of Mechanical Device: Intermittent pneumatic compression device Consult Discharge Plan - Plan Referrals: Billie Van, DISPENSARY TECHNICIAN [Primary Care Provider] -
[2017-04-25] MEDS: Vancomycin 1,750 MG in D5% in Water 500 ML IVPB SCH (19:49)
[2017-04-25] MEDS: *HR* HYDROcodone/Acet 5/325 mg TABLET PO PRN (20:16)
[2017-04-26 07:26] LABS: Calcium 9.1 mg/dL (8.6-10.8); Potassium 4.4 mEq/L (3.5-4.5)
[2017-04-26 07:30] LABS: Basophils # 0.1 K/mcL (0.0-0.2); Basophils % 0.5 %; Eosinophils # 0.4 K/mcL (0.0-0.6); Eosinophils % 3.7 %; Hematocrit 34.8 % (37.5-50.1); Hemoglobin 10.9 g/dL (12.9-16.9); Immature Granulocytes % 2.1 % (0-4); Lymphocytes # 1.8 K/mcL (0.6-4.6); Lymphocytes % 18.7 %; Mean Corpuscular HGB Conc 31.3 g/dL (31.6-35.5); Mean Corpuscular Hemoglobin 24.5 pg (28.0-33.3); Mean Corpuscular Volume 78.4 fL (83.0-100.0); Mean Platelet Volume 9.1 fL (9.4-12.4); Monocytes # 0.8 K/mcL (0.0-1.3); Monocytes % 8.2 %; Neutrophils # 6.3 K/mcL (1.6-8.9); Platelet Count 345 K/mcL (140-400); Red Blood Count 4.44 M/mcL (4.19-5.50); Red Cell Distribution Width 14.1 % (11.5-14.5); Segmented Neutrophils % 66.8 %
[2017-04-26] MEDS: Diltiazem CD (24hr) 120 MG CAPSULE PO SCH (08:48)
[2017-04-26] MEDS: Furosemide 40 MG TABLET PO SCH ×2 (08:48→16:45)
[2017-04-26] MEDS: Insulin LISPRO 300 UNITS/3 ML VIAL SQ SCH ×7 (08:49→21:27)
[2017-04-26] MEDS: Isosorbide MONOnitrate (24 HR) 30 MG TAB.ER.24H PO SCH (08:49)
[2017-04-26] MEDS: Metoprolol XL (24 HR) Succ 50 MG TAB.ER.24H PO SCH (08:49)
[2017-04-26] MEDS: Loratadine 10 MG TABLET PO SCH (08:49)
[2017-04-26] MEDS: Insulin DETEMIR 100 UNIT/ML X5UNITS SQ SCH ×2 (08:49→21:54)
[2017-04-26] MEDS: *HR* Rivaroxaban 15 MG TABLET PO SCH (08:50)
[2017-04-26] MEDS ORDERED: Insulin DETEMIR 100 UNIT/ML X5UNITS SQ ONE (09:33)
--- NOTE | 2017-04-26 11:18 | General Surgery Progress Note ---
<Naina Mulligan - Last Filed: 04/26/17 11:33> Date of Encounter: 04/26/17 Time of Encounter: 11:17 - Assessment and Plan (1) Osteomyelitis Current Visit: Yes Status: Acute POD #3 4th toe amputation (Left) foot. Denies discomfort at this time. Dressing taken down, Irrigated with 60 mls normal saline, repacked with Calcium Alginate. No s/s of infection noted. Daily wound care: remove packing, irrigate with normal saline. Repack calcium alginate and cover with Kerlix. Replace Mario bandage (expected for aprox 1 week) ; will eventually transition to wound vac (wound vac has been ordered and f/u in wound care for at 2:[address] Rojas). Wear Post-operative shoe when out of bed. Non-weightbearing to left lower extremity. Ambulate with walker or crutches per PT/OT eval and treat. Ok to d/c from a surgical perspective. D/c and d/c planning per hospitalist. Qualifiers: Osteomyelitis type: unspecified type Osteomyelitis location: foot Laterality: left Qualified Code(s): M86.9 - Osteomyelitis, unspecified (2) DVT prophylaxis Current Visit: Yes Status: Acute Ok to resume Xarelto (3) Type 2 diabetes mellitus Current Visit: Yes Status: Acute Management per medicine. 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 insulin use: with exterminator termite use Qualified Code(s): E11.621 - Type 2 diabetes mellitus with foot ulcer; L97.509 - Non-pressure chronic ulcer of other part of unspecified foot with unspecified severity; Z79.4 - buttermilk drier operator (current) use of insulin Subjective Patient reports: no new complaints, tolerating liquids well, tolerating a regular diet, voiding w/o difficulty Objective Vital Signs - Last 8 Hours Temp Pulse Resp BP Pulse Ox 04/26/17 10:57 97.5 F L 92 18 107/69 97 04/26/17 07:15 97.6 F 69 18 156/68 98 04/26/17 03:32 97.9 F 54 15 125/75 99 Intake and Output 04/25/17 04/26/17 04/26/17 23:59 07:59 15:59 Intake Total 0 / 0 0 / 0 0 / 0 Output Total 0 / 0 700 / 700 0 / 0 Balance 0 / 0 -700 / -700 0 / 0 Intake: Oral 0 / 0 0 / 0 0 / 0 Output: Urine 0 / 0 700 / 700 0 / 0 Other: # Bowel Movements 2 Weight 125.6 kg Blood Glucose* 291 252 297 Patient Weight 04/26/17 23:59 Weight 125.6 kg - General physical appearance no distress, no pain - Eyes normal ocular movement - ENT atraumatic, normocephalic - Neck Neck exam: trachea midline - Respiratory normal expansion, normal respiratory effort, clear to auscultation - Cardiovascular Cardiovascular exam: Present: RRR, distant heart sounds - Abdomen Abdomen: Present: bowel sounds present, soft, non tender - Incision Incision: Present: open (Wound beds remain beefy red and pink. No signs of infection noted.) - Integumentary no rash - Neurologic CN 2-12 grossly intact - Musculoskeletal normal gait, normal posture - Psychiatric oriented to time, oriented to person, oriented to place, speech is normal, memory intact - Labs 04/26/17 06:54 04/26/17 06:54 Diabetes panel 04/26/17 Range/Units 06:54 Sodium 133 L (136-145) mEq/L Potassium 4.4 (3.5-4.5) mEq/L Chloride 100 (98-109) mEq/L Carbon Dioxide 24 (19-29) mEq/L BUN 55 H (8-26) mg/dL Creatinine 2.25 H (0.72-1.25) mg/dL Glucose 272 H (70-99) mg/dL Calcium 9.1 (8.6-10.8) mg/dL Calcium panel 04/26/17 Range/Units 06:54 Calcium 9.1 (8.6-10.8) mg/dL Pituitary panel 04/26/17 Range/Units 06:54 Sodium 133 L (136-145) mEq/L Potassium 4.4 (3.5-4.5) mEq/L Chloride 100 (98-109) mEq/L Carbon Dioxide 24 (19-29) mEq/L BUN 55 H (8-26) mg/dL Creatinine 2.25 H (0.72-1.25) mg/dL Glucose 272 H (70-99) mg/dL Calcium 9.1 (8.6-10.8) mg/dL Adrenal panel 04/26/17 Range/Units 06:54 Sodium 133 L (136-145) mEq/L Potassium 4.4 (3.5-4.5) mEq/L Chloride 100 (98-109) mEq/L Carbon Dioxide 24 (19-29) mEq/L BUN 55 H (8-26) mg/dL Creatinine 2.25 H (0.72-1.25) mg/dL Glucose 272 H (70-99) mg/dL Calcium 9.1 (8.6-10.8) mg/dL - VTE Documentation of Mechanical Device: Intermittent pneumatic compression device Consult Discharge Plan - Plan Additional Instructions: Daily wound care: remove packing, irrigate with normal saline. Repack calcium alginate and cover with Kerlix. Replace Mario bandage (expected for aprox 1 week) ; will eventually transition to wound vac (wound vac has been ordered and f/u in wound care for at 2:[address] Rojas). Wear Post-operative shoe when out of bed. Non-weightbearing to left lower extremity. Ambulate with walker or crutches per PT/OT eval and treat. Referrals: Billie Van CNP [Primary Care Provider] - Richard Rojas MD [Partnered Physician] - 05/01/17 2:45 pm (In Wound Care 2016 at 2:45 pm) Prescriptions: HYDROcodone/Acet 7.5/325 mg [[place] 7.5-325 mg] 1 tab PO Q4H PRN #42 tablet PRN Reason: Pain Polyethylene Glycol 3350 [MiraLAX] 17 gm PO DAILY #30 powd.pack <Richard Rojas - Last Filed: 04/26/17 14:23> Date of Encounter: 04/26/17 - Assessment and Plan (1) Diabetic foot ulcer with osteomyelitis Current Visit: No Status: Acute (2) Necrosis of toe Current Visit: Yes Status: Acute Objective Vital Signs - Last 8 Hours Temp Pulse Resp BP Pulse Ox 04/26/17 10:57 97.5 F L 92 18 107/69 97 04/26/17 07:15 97.6 F 69 18 156/68 98 Intake and Output 04/25/17 04/26/17 04/26/17 23:59 07:59 15:59 Intake Total 0 / 0 0 / 0 0 / 0 Output Total 0 / 0 700 / 700 0 / 0 Balance 0 / 0 -700 / -700 0 / 0 Intake: Oral 0 / 0 0 / 0 0 / 0 Output: Urine 0 / 0 700 / 700 0 / 0 Other: Meal Lunch Percent of Meal Consumed 100% # Bowel Movements 2 Weight 125.6 kg Blood Glucose* 291 252 297 Patient Weight 04/26/17 23:59 Weight 125.6 kg - Labs 04/26/17 06:54 04/26/17 06:54 Diabetes panel 04/26/17 Range/Units 06:54 Sodium 133 L (136-145) mEq/L Potassium 4.4 (3.5-4.5) mEq/L Chloride 100 (98-109) mEq/L Carbon Dioxide 24 (19-29) mEq/L BUN 55 H (8-26) mg/dL Creatinine 2.25 H (0.72-1.25) mg/dL Glucose 272 H (70-99) mg/dL Calcium 9.1 (8.6-10.8) mg/dL Calcium panel 04/26/17 Range/Units 06:54 Calcium 9.1 (8.6-10.8) mg/dL Pituitary panel 04/26/17 Range/Units 06:54 Sodium 133 L (136-145) mEq/L Potassium 4.4 (3.5-4.5) mEq/L Chloride 100 (98-109) mEq/L Carbon Dioxide 24 (19-29) mEq/L BUN 55 H (8-26) mg/dL Creatinine 2.25 H (0.72-1.25) mg/dL Glucose 272 H (70-99) mg/dL Calcium 9.1 (8.6-10.8) mg/dL Adrenal panel 04/26/17 Range/Units 06:54 Sodium 133 L (136-145) mEq/L Potassium 4.4 (3.5-4.5) mEq/L Chloride 100 (98-109) mEq/L Carbon Dioxide 24 (19-29) mEq/L BUN 55 H (8-26) mg/dL Creatinine 2.25 H (0.72-1.25) mg/dL Glucose 272 H (70-99) mg/dL Calcium 9.1 (8.6-10.8) mg/dL - Attending Attestation I have personally performed a face to face evaluation on this patient. I have reviewed and agree with the care plan. History and Exam by me shows: The patient was seen and evaluated on morning rounds with the resident. I personally examined the patient and shared the treatment plan with the clinical nurse practitioner. He is to transition to calcium alginate today and maintaining complete nonweightbearing to his foot. His blood glucose levels are completely out of control with mucosal levels over 400. This is unacceptable for discharge. We will continue to follow him in the hospital as his diabetes comes under better control. Richard Rojas MD FACS
--- NOTE | 2017-04-26 19:01 | Internal Med Progress Note ---
Date of Encounter: 04/26/17 Time of Encounter: 10:00 - Assessment and plan (1) Diabetic foot ulcer with osteomyelitis Current Visit: No Status: Acute Assessment and plan: -POD #3 4th toe amputation (Left) foot. -Surgery following with recommendations for daily wound care -Further recommendations for non-weight bearing to left lower extremity; - PT/OT evaluation/treatment. (2) Acute kidney injury superimposed on CKD Current Visit: Yes Status: Acute Assessment and plan: -Stable; continue to monitor. (3) Congestive heart failure Current Visit: No Status: Chronic Assessment and plan: -Patient euvolemic; will continue to monitor. Qualifiers: Congestive heart failure type: diastolic Congestive heart failure chronicity: chronic Qualified Code(s): I50.32 - Chronic diastolic (congestive ) heart failure (4) Atrial fibrillation Current Visit: Yes Status: Chronic Assessment and plan: -Rate controlled; continue home medications and anticoagulation with Xarelto. Qualifiers: Atrial fibrillation type: chronic Qualified Code(s): I48.2 - Chronic atrial fibrillation (5) Obstructive sleep apnea Current Visit: Yes Status: Chronic Assessment and plan: Continue CPAP during night (6) Morbid obesity Current Visit: No Status: Chronic Assessment and plan: Lifestyle modifications. (7) Type 2 diabetes mellitus Current Visit: Yes Status: Acute Assessment and plan: -Blood glucose relatively controlled; continue home medications. Qualifiers: Diabetes mellitus complication status: with skin complications Diabetes mellitus complication detail: with foot ulcer Diabetes mellitus mcc insulin use: with mcc use Qualified Code(s): E11.621 - Type 2 diabetes mellitus with foot ulcer; L97.509 - Non-pressure chronic ulcer of other part of unspecified foot with unspecified severity; Z79.4 - [facility] (current) use of insulin (8) DVT prophylaxis Current Visit: Yes Status: Acute Assessment and plan: -Continue Xarelto. - Subjective Interval history: Patient without any issues or complaints this morning and no acute events overnight. - Constitutional Vitals: Temp Pulse Resp BP Pulse Ox 98.0 F 74 14 103/61 98 04/26/17 18:30 04/26/17 18:30 04/26/17 18:30 04/26/17 18:30 04/26/17 18:30 General appearance: Present: A&O X 3, pleasant, no acute distress - Respiratory Respiratory exam: Present: CTAB. Absent: accessory muscle use, rales, rhonchi, wheezes - Cardiovascular Cardiovascular exam: Present: RRR, +S1, +S2. Absent: diastolic murmur, gallop, rubs, systolic murmur Internal Medicine: Result - Labs CBC & Chem 7: 04/26/17 06:54 04/26/17 06:54 Labs: Short CBC 04/26/17 Range/Units 06:54 WBC 9.4 (4.3-11.1) K/mcL Hgb 10.9 L (12.9-16.9) g/dL Hct 34.8 L (37.5-50.1) % Plt Count 345 (140-400) K/mcL Neutrophils # 6.3 (1.6-8.9) K/mcL BMP 04/26/17 06:54 Sodium 133 L Potassium 4.4 Chloride 100 Carbon Dioxide 24 BUN 55 H Creatinine 2.25 H Glucose 272 H Calcium 9.1 - VTE Documentation of Mechanical Device: Intermittent pneumatic compression device Consult Discharge Plan - Plan Additional Instructions: Daily wound care: remove packing, irrigate with normal saline. Repack calcium alginate and cover with Kerlix. Replace Mario bandage (expected for aprox 1 week) ; will eventually transition to wound vac (wound vac has been ordered and f/u in wound care for at 2:[address] Rojas). Wear Post-operative shoe when out of bed. Non-weightbearing to left lower extremity. Ambulate with walker or crutches per PT/OT eval and treat. Referrals: Billie Van CNP [Primary Care Provider] - Richard Rojas MD [Partnered Physician] - 05/01/17 2:45 pm (In Wound Care 2016 at 2:45 pm) Prescriptions: HYDROcodone/Acet 7.5/325 mg [[place] 7.5-325 mg] 1 tab PO Q4H PRN #42 tablet PRN Reason: Pain Polyethylene Glycol 3350 [MiraLAX] 17 gm PO DAILY #30 powd.pack
[2017-04-26] MEDS: *HR* HYDROcodone/Acet 5/325 mg TABLET PO PRN (21:26)
[2017-04-27] MEDS: Insulin LISPRO 300 UNITS/3 ML VIAL SQ SCH ×7 (08:57→20:45)
[2017-04-27] MEDS: *HR* Rivaroxaban 15 MG TABLET PO SCH (08:58)
[2017-04-27] MEDS: Furosemide 40 MG TABLET PO SCH ×2 (08:58→17:01)
[2017-04-27] MEDS: Metoprolol XL (24 HR) Succ 50 MG TAB.ER.24H PO SCH (08:58)
[2017-04-27] MEDS: Diltiazem CD (24hr) 120 MG CAPSULE PO SCH (08:58)
[2017-04-27] MEDS: Loratadine 10 MG TABLET PO SCH (08:58)
[2017-04-27] MEDS: Isosorbide MONOnitrate (24 HR) 30 MG TAB.ER.24H PO SCH (08:58)
[2017-04-27] MEDS: Insulin DETEMIR 100 UNIT/ML X5UNITS SQ SCH ×2 (09:05→20:46)
--- NOTE | 2017-04-27 10:57 | General Surgery Progress Note ---
Date of Encounter: 04/27/17 Time of Encounter: 10:54 - Assessment and Plan (1) Osteomyelitis Current Visit: Yes Status: Acute POD #4 4th toe amputation (Left) foot. Denies discomfort at this time. Glucose this am is 120's. He is more controlled at this time. Continue antibiotics per primary team. Daily wound care: remove packing, irrigate with normal saline. Repack calcium alginate and cover with Kerlix. Replace Mario bandage (expected for aprox 1 week) ; will eventually transition to wound vac (wound vac has been ordered and f/u in wound care for at 2:[address] Rojas). Wear Post-operative shoe when out of bed. Non-weightbearing to left lower extremity. Ambulate with walker or crutches per PT/OT eval and treat. Given that glucose is more controlled, pt Ok to d/c from a surgical perspective. D/c planning per hospitalist (noted pending rehab placement). Qualifiers: Osteomyelitis type: unspecified type Osteomyelitis location: foot Laterality: left Qualified Code(s): M86.9 - Osteomyelitis, unspecified (2) DVT prophylaxis Current Visit: Yes Status: Acute On Xarelto (3) Type 2 diabetes mellitus Current Visit: Yes Status: Acute Management per medicine. Qualifiers: Diabetes mellitus complication status: with skin complications Diabetes mellitus complication detail: with foot ulcer Diabetes mellitus halfway insulin use: with halfway use Qualified Code(s): E11.621 - Type 2 diabetes mellitus with foot ulcer; L97.509 - Non-pressure chronic ulcer of other part of unspecified foot with unspecified severity; Z79.4 - picker and sorter load and unload (current) use of insulin Subjective Patient reports: no new complaints, tolerating a regular diet, voiding w/o difficulty, flatus, bowel movement, afebrile Objective Vital Signs - Last 8 Hours Temp Pulse Resp BP Pulse Ox 04/27/17 10:39 97.4 F L 91 15 123/75 98 04/27/17 06:32 97.4 F L 55 17 125/69 100 04/27/17 04:50 98.0 F 68 14 147/68 99 Intake and Output 04/26/17 04/27/17 04/27/17 23:59 07:59 15:59 Intake Total 480 / 480 840 / 840 650 / 650 Output Total 300 / 300 550 / 550 350 / 350 Balance 180 / 180 290 / 290 300 / 300 Intake: Oral 480 / 480 840 / 840 650 / 650 Output: Urine 300 / 300 550 / 550 350 / 350 Other: Meal Dinner Breakfast Percent of Meal Consumed 100% 100% # Voids 1 Weight 125.191 kg Blood Glucose* 212 121 Patient Weight 04/27/17 23:59 Weight 125.191 kg - General physical appearance no distress, no pain - ENT atraumatic, normocephalic - Neck Neck exam: no masses, trachea midline - Respiratory normal expansion, normal respiratory effort, clear to auscultation - Cardiovascular Cardiovascular exam: Present: RRR, distant heart sounds - Abdomen Abdomen: Present: bowel sounds present, soft, non tender - Integumentary no rash, other (Left foot dressing in place. Wound care per Bedside RN) - Neurologic CN 2-12 grossly intact - Musculoskeletal normal gait, normal posture - Psychiatric oriented to time, oriented to person, oriented to place, speech is normal, memory intact - Labs 04/26/17 06:54 04/26/17 06:54 - VTE Documentation of Mechanical Device: Intermittent pneumatic compression device Consult Discharge Plan - Plan Additional Instructions: Daily wound care: remove packing, irrigate with normal saline. Repack calcium alginate and cover with Kerlix. Replace Mario bandage (expected for aprox 1 week) ; will eventually transition to wound vac (wound vac has been ordered and f/u in wound care for at 2:[address] Rojas). Wear Post-operative shoe when out of bed. Non-weightbearing to left lower extremity. Ambulate with walker or crutches per PT/OT eval and treat. Referrals: Billie Van CNP [Primary Care Provider] - Richard Rojas MD [Partnered Physician] - 05/01/17 2:45 pm (In Wound Care 2016 at 2:45 pm) Prescriptions: HYDROcodone/Acet 7.5/325 mg [[place] 7.5-325 mg] 1 tab PO Q4H PRN #42 tablet PRN Reason: Pain Polyethylene Glycol 3350 [MiraLAX] 17 gm PO DAILY #30 powd.pack
[2017-04-27] MEDS: Levofloxacin 750 MG/150 ML 750 MG/150 ML BAG IVPB SCH (12:36)
--- NOTE | 2017-04-27 18:25 | Internal Med Progress Note ---
Date of Encounter: 04/27/17 Time of Encounter: 10:00 - Assessment and plan (1) Diabetic foot ulcer with osteomyelitis Current Visit: No Status: Acute Assessment and plan: -POD #4 4th toe amputation (Left) foot. -Surgery following with recommendations for daily wound care -Further recommendations for non-weight bearing to left lower extremity; - PT/OT accommodations for ECF. (2) Acute kidney injury superimposed on CKD Current Visit: Yes Status: Acute Assessment and plan: -Stable; continue to monitor. (3) Congestive heart failure Current Visit: No Status: Chronic Assessment and plan: -Patient euvolemic; will continue to monitor. Qualifiers: Congestive heart failure type: diastolic Congestive heart failure chronicity: chronic Qualified Code(s): I50.32 - Chronic diastolic (congestive ) heart failure (4) Atrial fibrillation Current Visit: Yes Status: Chronic Assessment and plan: -Rate controlled; continue home medications and anticoagulation with Xarelto. Qualifiers: Atrial fibrillation type: chronic Qualified Code(s): I48.2 - Chronic atrial fibrillation (5) Obstructive sleep apnea Current Visit: Yes Status: Chronic Assessment and plan: Continue CPAP during night (6) Morbid obesity Current Visit: No Status: Chronic Assessment and plan: Lifestyle modifications. (7) Type 2 diabetes mellitus Current Visit: Yes Status: Acute Assessment and plan: -Blood glucose relatively controlled; continue home medications. Qualifiers: Diabetes mellitus complication status: with skin complications Diabetes mellitus complication detail: with foot ulcer Diabetes mellitus assisted insulin use: with intermediate project manager use Qualified Code(s): E11.621 - Type 2 diabetes mellitus with foot ulcer; L97.509 - Non-pressure chronic ulcer of other part of unspecified foot with unspecified severity; Z79.4 - USP (current) use of insulin (8) DVT prophylaxis Current Visit: Yes Status: Acute Assessment and plan: -Continue Xarelto. - Subjective Interval history: Patient without any issues or complaints this morning and no acute events overnight. - Constitutional Vitals: Temp Pulse Resp BP Pulse Ox 98.1 F 91 15 110/66 98 04/27/17 14:50 04/27/17 14:50 04/27/17 14:50 04/27/17 14:50 04/27/17 14:50 General appearance: Present: A&O X 3, pleasant, no acute distress - Respiratory Respiratory exam: Present: CTAB. Absent: accessory muscle use, rales, rhonchi, wheezes - Cardiovascular Cardiovascular exam: Present: RRR, +S1, +S2. Absent: diastolic murmur, gallop, rubs, systolic murmur Internal Medicine: Result - Labs CBC & Chem 7: 04/26/17 06:54 04/26/17 06:54 - VTE Documentation of Mechanical Device: Intermittent pneumatic compression device Consult Discharge Plan - Plan Additional Instructions: Daily wound care: remove packing, irrigate with normal saline. Repack calcium alginate and cover with Kerlix. Replace Mario bandage (expected for aprox 1 week) ; will eventually transition to wound vac (wound vac has been ordered and f/u in wound care for at 2:[address] Rojas). Wear Post-operative shoe when out of bed. Non-weightbearing to left lower extremity. Ambulate with walker or crutches per PT/OT eval and treat. Referrals: Billie Van CNP [Primary Care Provider] - Richard Rojas MD [Partnered Physician] - 05/01/17 2:45 pm (In Wound Care 2016 at 2:45 pm) Prescriptions: HYDROcodone/Acet 7.5/325 mg [[place] 7.5-325 mg] 1 tab PO Q4H PRN #42 tablet PRN Reason: Pain Polyethylene Glycol 3350 [MiraLAX] 17 gm PO DAILY #30 powd.pack
[2017-04-28] MEDS: Insulin LISPRO 300 UNITS/3 ML VIAL SQ SCH ×7 (08:12→21:18)
[2017-04-28] MEDS: Diltiazem CD (24hr) 120 MG CAPSULE PO SCH (08:13)
[2017-04-28] MEDS: Isosorbide MONOnitrate (24 HR) 30 MG TAB.ER.24H PO SCH (08:13)
[2017-04-28] MEDS: *HR* Rivaroxaban 15 MG TABLET PO SCH (08:13)
[2017-04-28] MEDS: Furosemide 40 MG TABLET PO SCH ×2 (08:13→16:28)
[2017-04-28] MEDS: Loratadine 10 MG TABLET PO SCH (08:13)
[2017-04-28] MEDS: Metoprolol XL (24 HR) Succ 50 MG TAB.ER.24H PO SCH (08:13)
[2017-04-28 10:10] LABS: Basophils # 0.1 K/mcL (0.0-0.2); Basophils % 0.5 %; Eosinophils # 0.5 K/mcL (0.0-0.6); Eosinophils % 3.4 %; Hematocrit 34.4 % (37.5-50.1); Hemoglobin 10.8 g/dL (12.9-16.9); Immature Granulocytes % 3.4 % (0-4); Lymphocytes # 1.7 K/mcL (0.6-4.6); Lymphocytes % 12.6 %; Mean Corpuscular HGB Conc 31.4 g/dL (31.6-35.5); Mean Corpuscular Hemoglobin 24.5 pg (28.0-33.3); Mean Platelet Volume 9.1 fL (9.4-12.4); Monocytes # 0.7 K/mcL (0.0-1.3); Monocytes % 5.4 %; Neutrophils # 9.9 K/mcL (1.6-8.9); Platelet Count 370 K/mcL (140-400); Red Blood Count 4.41 M/mcL (4.19-5.50); Red Cell Distribution Width 14.3 % (11.5-14.5); Segmented Neutrophils % 74.7 %
[2017-04-28 10:29] LABS: Calcium 9.2 mg/dL (8.6-10.8)
--- NOTE | 2017-04-28 11:19 | General Surgery Progress Note ---
<Magnolia Cardoso - Last Filed: 04/28/17 11:16> Date of Encounter: 04/28/17 Time of Encounter: 06:55 - Assessment and Plan (1) Osteomyelitis Current Visit: Yes Status: Acute POD #5 4th toe amputation (Left) foot. Denies discomfort at this time. Glucose this am is 120's. He is more controlled at this time. Continue antibiotics per primary team. Daily wound care: remove packing, irrigate with normal saline. Repack calcium alginate and cover with Kerlix. Replace Mario bandage (expected for aprox 1 week) ; will eventually transition to wound vac (wound vac has been ordered and f/u in wound care for at 2:[address] Rojas). Wear Post-operative shoe when out of bed. Non-weightbearing to left lower extremity. Ambulate with walker or crutches per PT/OT eval and treat. Given that glucose is more controlled, pt Ok to d/c from a surgical perspective. D/c planning per hospitalist (noted pending rehab placement). Surgery will sign off on patient. Please contact with questions or concerns. Qualifiers: Osteomyelitis type: unspecified type Osteomyelitis location: foot Laterality: left Qualified Code(s): M86.9 - Osteomyelitis, unspecified (2) Type 2 diabetes mellitus Current Visit: Yes Status: Acute Blood glucoses much better controlled. Patient switched to Levemir 700 units twice a day in each Humalog 20 units with meals, insulin sliding scale. Encouraged to keep blood glucose under control for optimal healing. Qualifiers: Diabetes mellitus complication status: with skin complications Diabetes mellitus complication detail: with foot ulcer Diabetes mellitus intermediate frame tender insulin use: with halfway use Qualified Code(s): E11.621 - Type 2 diabetes mellitus with foot ulcer; L97.509 - Non-pressure chronic ulcer of other part of unspecified foot with unspecified severity; Z79.4 - jail (current) use of insulin Subjective Narrative: Patient is a 51-year-old male past medical history of diabetes presented with 4 digit necrosis/osteomyelitis and is status post amputation of Left 4 digit. Today, patient states he does not have pain. He denies N/V, SOB, or chest pain. Objective Vital Signs - Last 8 Hours Temp Pulse Resp BP Pulse Ox 04/28/17 10:24 97.8 F 69 15 107/56 96 09/29/17 06:51 97.8 F 71 16 127/76 100 Intake and Output 04/27/17 04/28/17 04/28/17 23:59 07:59 15:59 Intake Total 480 / 480 720 / 720 240 / 240 Output Total 0 / 0 200 / 200 0 / 0 Balance 480 / 480 520 / 520 240 / 240 Intake: Oral 480 / 480 720 / 720 240 / 240 Output: Urine 0 / 0 200 / 200 0 / 0 Other: Meal Lunch Breakfast Percent of Meal Consumed 100% 100% Stool Size Moderate Stool Consistency formed # Voids 1 1 # Bowel Movements 1 Weight 124.738 kg Blood Glucose* 117 119 Patient Weight 04/28/17 23:59 Weight 124.738 kg - Additional Exam Constitutional: Alert, in no acute distress, well nourished, well developed. Head: Normocephalic, atraumatic, normal contour and symmetric, no masses, lesions or scars Heart: Normal, regular rate and rhythm, no murmurs Lungs: Clear to auscultation, no wheezes, rales, or rhonchi Abdomen: Soft, nondistended, nontender, and no masses palpable, bowel sounds present and normal, no guarding or rigidity. Extremities: L foot wrapped with mario bandage, clean and dry and post-op shoe present, No clubbing, cyanosis, or edema, radial pulse +2/4, capillary refill < 2sec. Skin: Skin warm and dry, no lesions, no rashes, no jaundice Neurologic: Cranial nerves II through XII grossly intact, no focal deficits, strength within normal limits in all extremities Psych: Cooperative with exam, good eye contact, cognitive function intact, judgment good insight good, speech clear, thought process logical, and goal directed - Labs 04/28/17 09:52 04/26/17 06:54 - VTE Documentation of Mechanical Device: Intermittent pneumatic compression device Consult Discharge Plan - Plan Additional Instructions: Daily wound care: remove packing, irrigate with normal saline. Repack calcium alginate and cover with Kerlix. Replace Mario bandage (expected for aprox 1 week) ; will eventually transition to wound vac (wound vac has been ordered and f/u in wound care for at 2:[address] Rojas). Wear Post-operative shoe when out of bed. Non-weightbearing to left lower extremity. Ambulate with walker or crutches per PT/OT eval and treat. Referrals: Billie Van CNP [Primary Care Provider] - Richard Rojas MD [Partnered Physician] - 05/01/17 2:45 pm (In Wound Care 2016 at 2:45 pm) Prescriptions: HYDROcodone/Acet 7.5/325 mg [[place] 7.5-325 mg] 1 tab PO Q4H PRN #42 tablet PRN Reason: Pain Polyethylene Glycol 3350 [MiraLAX] 17 gm PO DAILY #30 powd.pack <Richard Rojas - Last Filed: 04/28/17 15:32> Date of Encounter: 04/28/17 - Assessment and Plan (1) Diabetic foot ulcer with osteomyelitis Current Visit: No Status: Acute (2) Necrosis of toe Current Visit: Yes Status: Acute Objective Vital Signs - Last 8 Hours Temp Pulse Resp BP Pulse Ox 04/28/17 15:27 98.2 F 73 15 127/73 99 04/28/17 10:24 97.8 F 69 15 107/56 96 Intake and Output 04/27/17 04/28/17 04/28/17 23:59 07:59 15:59 Intake Total 480 / 480 720 / 720 480 / 480 Output Total 0 / 0 200 / 200 600 / 600 Balance 480 / 480 520 / 520 -120 / -120 Intake: Oral 480 / 480 720 / 720 480 / 480 Output: Urine 0 / 0 200 / 200 600 / 600 Other: Meal Lunch Breakfast Percent of Meal Consumed 100% 100% Stool Size Moderate Stool Consistency formed # Voids 1 1 # Bowel Movements 1 Weight 124.738 kg Blood Glucose* 117 119 257 Patient Weight 04/28/17 23:59 Weight 124.738 kg - Labs 04/28/17 09:52 04/28/17 09:52 Diabetes panel 04/28/17 Range/Units 09:52 Sodium 135 L (136-145) mEq/L Potassium 5.0 H (3.5-4.5) mEq/L Chloride 104 (98-109) mEq/L Carbon Dioxide 23 (19-29) mEq/L BUN 56 H (8-26) mg/dL Creatinine 2.22 H (0.72-1.25) mg/dL Glucose 241 H (70-99) mg/dL Calcium 9.2 (8.6-10.8) mg/dL Calcium panel 04/28/17 Range/Units 09:52 Calcium 9.2 (8.6-10.8) mg/dL Pituitary panel 04/28/17 Range/Units 09:52 Sodium 135 L (136-145) mEq/L Potassium 5.0 H (3.5-4.5) mEq/L Chloride 104 (98-109) mEq/L Carbon Dioxide 23 (19-29) mEq/L BUN 56 H (8-26) mg/dL Creatinine 2.22 H (0.72-1.25) mg/dL Glucose 241 H (70-99) mg/dL Calcium 9.2 (8.6-10.8) mg/dL Adrenal panel 04/28/17 Range/Units 09:52 Sodium 135 L (136-145) mEq/L Potassium 5.0 H (3.5-4.5) mEq/L Chloride 104 (98-109) mEq/L Carbon Dioxide 23 (19-29) mEq/L BUN 56 H (8-26) mg/dL Creatinine 2.22 H (0.72-1.25) mg/dL Glucose 241 H (70-99) mg/dL Calcium 9.2 (8.6-10.8) mg/dL - Attending Attestation I examined this patient and my medical decision-making was reviewed with the Resident Physician. I agree with the documented findings, disposition and treatment plan as described except to the extent set forth below. The patient was seen and evaluated on morning rounds with rest. He is not having pain. Glucose levels are in much better control. He should be able to be discharged on oral antibiotics. I will be glad to follow him in the wound clinic. Richard Rojas MD FACS
[2017-04-28] MEDS: Insulin DETEMIR 100 UNIT/ML X5UNITS SQ SCH ×2 (11:45→21:16)
--- NOTE | 2017-04-28 18:24 | Internal Med Progress Note ---
Date of Encounter: 04/28/17 Time of Encounter: 10:00 - Assessment and plan (1) Diabetic foot ulcer with osteomyelitis Current Visit: No Status: Acute Assessment and plan: POD #5 4th toe amputation (Left) foot. Awaiting ECF placement. Per surgery recommendations: -Daily wound care: remove packing, irrigate with normal saline. Repack calcium alginate and cover with Kerlix. -Replace Mario bandage (expected for aprox 1 week); will eventually transition to wound vac (wound vac has been ordered and f/u in wound care for at 2: [address] Rojas). (2) Acute kidney injury superimposed on CKD Current Visit: Yes Status: Acute Assessment and plan: -Stable; continue to monitor. (3) Congestive heart failure Current Visit: No Status: Chronic Assessment and plan: -Patient euvolemic; will continue to monitor. Qualifiers: Congestive heart failure type: diastolic Congestive heart failure chronicity: chronic Qualified Code(s): I50.32 - Chronic diastolic (congestive ) heart failure (4) Atrial fibrillation Current Visit: Yes Status: Chronic Assessment and plan: -Rate controlled; continue home medications and anticoagulation with Xarelto. Qualifiers: Atrial fibrillation type: chronic Qualified Code(s): I48.2 - Chronic atrial fibrillation (5) Obstructive sleep apnea Current Visit: Yes Status: Chronic Assessment and plan: Continue CPAP during night (6) Morbid obesity Current Visit: No Status: Chronic Assessment and plan: Lifestyle modifications. (7) Type 2 diabetes mellitus Current Visit: Yes Status: Acute Assessment and plan: -Blood glucose relatively controlled; continue home medications. Qualifiers: Diabetes mellitus complication status: with skin complications Diabetes mellitus complication detail: with foot ulcer Diabetes mellitus assisted insulin use: with technician terminal and repeater use Qualified Code(s): E11.621 - Type 2 diabetes mellitus with foot ulcer; L97.509 - Non-pressure chronic ulcer of other part of unspecified foot with unspecified severity; Z79.4 - snf (current) use of insulin (8) DVT prophylaxis Current Visit: Yes Status: Acute Assessment and plan: -Continue Xarelto. - Subjective Interval history: Patient without any issues or complaints this morning and no acute events overnight. - Constitutional Vitals: Temp Pulse Resp BP Pulse Ox 98.2 F 73 15 127/73 99 04/28/17 15:27 04/28/17 15:27 04/28/17 15:27 04/28/17 15:27 04/28/17 15:27 General appearance: Present: A&O X 3, pleasant, no acute distress - Respiratory Respiratory exam: Present: CTAB. Absent: accessory muscle use, rales, rhonchi, wheezes - Cardiovascular Cardiovascular exam: Present: RRR, +S1, +S2. Absent: diastolic murmur, gallop, rubs, systolic murmur Internal Medicine: Result - Labs CBC & Chem 7: 04/28/17 09:52 04/28/17 09:52 Labs: Short CBC 04/28/17 Range/Units 09:52 WBC 13.3 H (4.3-11.1) K/mcL Hgb 10.8 L (12.9-16.9) g/dL Hct 34.4 L (37.5-50.1) % Plt Count 370 (140-400) K/mcL Neutrophils # 9.9 H (1.6-8.9) K/mcL BMP 04/28/17 09:52 Sodium 135 L Potassium 5.0 H Chloride 104 Carbon Dioxide 23 BUN 56 H Creatinine 2.22 H Glucose 241 H Calcium 9.2 - VTE Documentation of Mechanical Device: Intermittent pneumatic compression device Consult Discharge Plan - Plan Additional Instructions: Daily wound care: remove packing, irrigate with normal saline. Repack calcium alginate and cover with Kerlix. Replace Mario bandage (expected for aprox 1 week) ; will eventually transition to wound vac (wound vac has been ordered and f/u in wound care for at 2:[address] Rojas). Wear Post-operative shoe when out of bed. Non-weightbearing to left lower extremity. Ambulate with walker or crutches per PT/OT eval and treat. Referrals: Billie Van CNP [Primary Care Provider] - Richard Rojas MD [Partnered Physician] - 05/01/17 2:45 pm (In Wound Care 2016 at 2:45 pm) Prescriptions: HYDROcodone/Acet 7.5/325 mg [[place] 7.5-325 mg] 1 tab PO Q4H PRN #42 tablet PRN Reason: Pain Polyethylene Glycol 3350 [MiraLAX] 17 gm PO DAILY #30 powd.pack
[2017-04-29] MEDS: *HR* HYDROcodone/Acet 5/325 mg TABLET PO PRN ×3 (07:04→22:06)
[2017-04-29] MEDS: Furosemide 40 MG TABLET PO SCH ×2 (09:28→17:00)
[2017-04-29] MEDS: *HR* Rivaroxaban 15 MG TABLET PO SCH (09:28)
[2017-04-29] MEDS: levoFLOXacin 750 MG TABLET PO SCH (09:28)
[2017-04-29] MEDS: Loratadine 10 MG TABLET PO SCH (09:28)
[2017-04-29] MEDS: Isosorbide MONOnitrate (24 HR) 30 MG TAB.ER.24H PO SCH (09:28)
[2017-04-29] MEDS: Diltiazem CD (24hr) 120 MG CAPSULE PO SCH (09:28)
[2017-04-29] MEDS: Insulin DETEMIR 100 UNIT/ML X5UNITS SQ SCH ×2 (09:29→22:06)
[2017-04-29] MEDS: Metoprolol XL (24 HR) Succ 50 MG TAB.ER.24H PO SCH (09:29)
[2017-04-29] MEDS: Insulin LISPRO 300 UNITS/3 ML VIAL SQ SCH ×7 (09:30→21:48)
[2017-04-29 09:56] LABS: Basophils # 0.1 K/mcL (0.0-0.2); Basophils % 0.5 %; Eosinophils # 0.5 K/mcL (0.0-0.6); Eosinophils % 3.7 %; Hematocrit 36.1 % (37.5-50.1); Hemoglobin 11.1 g/dL (12.9-16.9); Immature Granulocytes % 3.4 % (0-4); Immature Platelets 1.5 % (1.1-6.1); Lymphocytes # 1.9 K/mcL (0.6-4.6); Lymphocytes % 15.1 %; Mean Corpuscular HGB Conc 30.7 g/dL (31.6-35.5); Mean Corpuscular Hemoglobin 24.3 pg (28.0-33.3); Mean Corpuscular Volume 79.2 fL (83.0-100.0); Mean Platelet Volume 9.2 fL (9.4-12.4); Monocytes # 0.7 K/mcL (0.0-1.3); Monocytes % 5.2 %; Platelet Count 396 K/mcL (140-400); Red Blood Count 4.56 M/mcL (4.19-5.50); Red Cell Distribution Width 14.6 % (11.5-14.5); Segmented Neutrophils % 72.1 %
[2017-04-29 10:09] LABS: Calcium 9.5 mg/dL (8.6-10.8); Potassium 4.9 mEq/L (3.5-4.5)
--- NOTE | 2017-04-29 16:07 | Internal Med Progress Note ---
Date of Encounter: 04/29/17 Time of Encounter: 10:00 - Assessment and plan (1) Diabetic foot ulcer with osteomyelitis Current Visit: No Status: Acute Assessment and plan: POD #6 4th toe amputation (Left) foot. Awaiting ECF placement. Per surgery recommendations: -Daily wound care: remove packing, irrigate with normal saline. Repack calcium alginate and cover with Kerlix. -Replace Mario bandage (expected for aprox 1 week); will eventually transition to wound vac (wound vac has been ordered and f/u in wound care for at 2: [address] Rojas). (2) Acute kidney injury superimposed on CKD Current Visit: Yes Status: Acute Assessment and plan: -Stable; continue to monitor. (3) Congestive heart failure Current Visit: No Status: Chronic Assessment and plan: -Patient euvolemic; will continue to monitor. Qualifiers: Congestive heart failure type: diastolic Congestive heart failure chronicity: chronic Qualified Code(s): I50.32 - Chronic diastolic (congestive ) heart failure (4) Atrial fibrillation Current Visit: Yes Status: Chronic Assessment and plan: -Rate controlled; continue home medications and anticoagulation with Xarelto. Qualifiers: Atrial fibrillation type: chronic Qualified Code(s): I48.2 - Chronic atrial fibrillation (5) Obstructive sleep apnea Current Visit: Yes Status: Chronic Assessment and plan: Continue CPAP during night (6) Morbid obesity Current Visit: No Status: Chronic Assessment and plan: Lifestyle modifications. (7) Type 2 diabetes mellitus Current Visit: Yes Status: Acute Assessment and plan: -Blood glucose relatively controlled; continue home medications. Qualifiers: Diabetes mellitus complication status: with skin complications Diabetes mellitus complication detail: with foot ulcer Diabetes mellitus nursing home insulin use: with intermission coordinator use Qualified Code(s): E11.621 - Type 2 diabetes mellitus with foot ulcer; L97.509 - Non-pressure chronic ulcer of other part of unspecified foot with unspecified severity; Z79.4 - [facility] (current) use of insulin (8) DVT prophylaxis Current Visit: Yes Status: Acute Assessment and plan: -Continue Xarelto. - Subjective Interval history: Patient without any issues or complaints this morning and no acute events overnight. - Constitutional Vitals: Temp Pulse Resp BP Pulse Ox 97.4 F L 52 16 144/78 98 04/29/17 15:09 04/29/17 15:04/29/17 15:09 04/29/17 15:04/29/17 15:09 General appearance: Present: A&O X 3, pleasant, no acute distress - Respiratory Respiratory exam: Present: CTAB. Absent: accessory muscle use, rales, rhonchi, wheezes - Cardiovascular Cardiovascular exam: Present: RRR, +S1, +S2. Absent: diastolic murmur, gallop, rubs, systolic murmur Internal Medicine: Result - Labs CBC & Chem 7: 04/29/17 09:45 04/29/17 09:45 Labs: Short CBC 04/29/17 Range/Units 09:45 WBC 12.4 H (4.3-11.1) K/mcL Hgb 11.1 L (12.9-16.9) g/dL Hct 36.1 L (37.5-50.1) % Plt Count 396 (140-400) K/mcL Neutrophils # 9.0 H (1.6-8.9) K/mcL BMP 04/29/17 09:45 Sodium 133 L Potassium 4.9 H Chloride 101 Carbon Dioxide 24 BUN 59 H Creatinine 2.28 H Glucose 238 H Calcium 9.5 - VTE Documentation of Mechanical Device: Intermittent pneumatic compression device Consult Discharge Plan - Plan Additional Instructions: Daily wound care: remove packing, irrigate with normal saline. Repack calcium alginate and cover with Kerlix. Replace Mario bandage (expected for aprox 1 week) ; will eventually transition to wound vac (wound vac has been ordered and f/u in wound care for at 2:[address] Rojas). Wear Post-operative shoe when out of bed. Non-weightbearing to left lower extremity. Ambulate with walker or crutches per PT/OT eval and treat. Referrals: Billie Van CNP [Primary Care Provider] - Richard Rojas MD [Partnered Physician] - 05/01/17 2:45 pm (In Wound Care 2016 at 2:45 pm) Prescriptions: HYDROcodone/Acet 7.5/325 mg [[place] 7.5-325 mg] 1 tab PO Q4H PRN #42 tablet PRN Reason: Pain Polyethylene Glycol 3350 [MiraLAX] 17 gm PO DAILY #30 powd.pack
[2017-04-30] MEDS: *HR* HYDROcodone/Acet 5/325 mg TABLET PO PRN (09:50)
[2017-04-30] MEDS: Diltiazem CD (24hr) 120 MG CAPSULE PO SCH (09:50)
[2017-04-30] MEDS: Metoprolol XL (24 HR) Succ 50 MG TAB.ER.24H PO SCH (09:50)
[2017-04-30] MEDS: *HR* Rivaroxaban 15 MG TABLET PO SCH (09:50)
[2017-04-30] MEDS: Furosemide 40 MG TABLET PO SCH ×2 (09:50→16:59)
[2017-04-30] MEDS: Loratadine 10 MG TABLET PO SCH (09:50)
[2017-04-30] MEDS: Isosorbide MONOnitrate (24 HR) 30 MG TAB.ER.24H PO SCH (09:50)
[2017-04-30] MEDS: Insulin DETEMIR 100 UNIT/ML X5UNITS SQ SCH ×2 (10:00→22:17)
[2017-04-30] MEDS: Insulin LISPRO 300 UNITS/3 ML VIAL SQ SCH ×6 (10:01→16:59)
[2017-04-30 10:14] LABS: Basophils % 0.4 %; Eosinophils # 0.3 K/mcL (0.0-0.6); Eosinophils % 2.7 %; Hematocrit 34.9 % (37.5-50.1); Hemoglobin 10.8 g/dL (12.9-16.9); Immature Granulocytes % 3.6 % (0-4); Lymphocytes # 1.8 K/mcL (0.6-4.6); Lymphocytes % 15.5 %; Mean Corpuscular HGB Conc 30.9 g/dL (31.6-35.5); Mean Corpuscular Hemoglobin 24.8 pg (28.0-33.3); Mean Platelet Volume 9.5 fL (9.4-12.4); Monocytes # 0.6 K/mcL (0.0-1.3); Monocytes % 5.4 %; Neutrophils # 8.2 K/mcL (1.6-8.9); Platelet Count 332 K/mcL (140-400); Red Blood Count 4.36 M/mcL (4.19-5.50); Red Cell Distribution Width 14.6 % (11.5-14.5); Segmented Neutrophils % 72.4 %
[2017-04-30 10:27] LABS: Calcium 9.2 mg/dL (8.6-10.8); Potassium 5.1 mEq/L (3.5-4.5)
--- NOTE | 2017-04-30 17:46 | Internal Med Progress Note ---
Date of Encounter: 04/30/17 Time of Encounter: 11:00 - Assessment and plan (1) Diabetic foot ulcer with osteomyelitis Current Visit: No Status: Inactive Assessment and plan: POD #7 4th toe amputation (Left) foot. Awaiting ECF placement. Per surgery recommendations: -Daily wound care: remove packing, irrigate with normal saline. Repack calcium alginate and cover with Kerlix. -Replace Mario bandage (expected for aprox 1 week); will eventually transition to wound vac (wound vac has been ordered and f/u in wound care for at 2: [address] Rojas). (2) Acute kidney injury superimposed on CKD Current Visit: Yes Status: Acute Assessment and plan: -Stable; continue to monitor. (3) Congestive heart failure Current Visit: No Status: Chronic Assessment and plan: -Patient euvolemic; will continue to monitor. Qualifiers: Congestive heart failure type: diastolic Congestive heart failure chronicity: chronic Qualified Code(s): I50.32 - Chronic diastolic (congestive ) heart failure (4) Atrial fibrillation Current Visit: Yes Status: Chronic Assessment and plan: -Rate controlled; continue home medications and anticoagulation with Xarelto. Qualifiers: Atrial fibrillation type: chronic Qualified Code(s): I48.2 - Chronic atrial fibrillation (5) Obstructive sleep apnea Current Visit: Yes Status: Chronic Assessment and plan: Continue CPAP during night (6) Morbid obesity Current Visit: No Status: Chronic Assessment and plan: Lifestyle modifications. (7) Type 2 diabetes mellitus Current Visit: Yes Status: Acute Assessment and plan: -Serum blood glucose levels have been allocated due to patient refusing insulin. -Discussed with patient about the importance of being compliant with insulin therapy and he verbalized understanding Qualifiers: Diabetes mellitus complication status: with skin complications Diabetes mellitus complication detail: with foot ulcer Diabetes mellitus [facility] insulin use: with [facility] use Qualified Code(s): E11.621 - Type 2 diabetes mellitus with foot ulcer; L97.509 - Non-pressure chronic ulcer of other part of unspecified foot with unspecified severity; Z79.4 - termite helper (current) use of insulin (8) DVT prophylaxis Current Visit: Yes Status: Acute Assessment and plan: -Continue Xarelto. - Subjective Interval history: Patient without any issues or complaints this morning and no acute events overnight. Patient is refusing his insulin therefore serum blood glucose levels have been elevated. - Constitutional Vitals: Temp Pulse Resp BP Pulse Ox 97.8 F 43 16 151/74 99 04/30/17 17:00 04/30/17 17:00 04/30/17 17:00 04/30/17 17:00 04/30/17 17:00 General appearance: Present: A&O X 3, pleasant, no acute distress - Respiratory Respiratory exam: Present: CTAB. Absent: accessory muscle use, rales, rhonchi, wheezes - Cardiovascular Cardiovascular exam: Present: RRR, +S1, +S2. Absent: diastolic murmur, gallop, rubs, systolic murmur Internal Medicine: Result - Labs CBC & Chem 7: 04/30/17 09:45 04/30/17 09:45 Labs: Short CBC 04/30/17 Range/Units 09:45 WBC 11.4 H (4.3-11.1) K/mcL Hgb 10.8 L (12.9-16.9) g/dL Hct 34.9 L (37.5-50.1) % Plt Count 332 (140-400) K/mcL Neutrophils # 8.2 (1.6-8.9) K/mcL BMP 04/30/17 09:45 Sodium 132 L Potassium 5.1 H Chloride 102 Carbon Dioxide 23 BUN 66 H Creatinine 2.48 H Glucose 281 H Calcium 9.2 - VTE Documentation of Mechanical Device: Intermittent pneumatic compression device Consult Discharge Plan - Plan Additional Instructions: Daily wound care: remove packing, irrigate with normal saline. Repack calcium alginate and cover with Kerlix. Replace Mario bandage (expected for aprox 1 week) ; will eventually transition to wound vac (wound vac has been ordered and f/u in wound care for at 2:[address] Rojas). Wear Post-operative shoe when out of bed. Non-weightbearing to left lower extremity. Ambulate with walker or crutches per PT/OT eval and treat. Referrals: Billie Van CNP [Primary Care Provider] - Richard Rojas MD [Partnered Physician] - 05/01/17 2:45 pm (In Wound Care 2016 at 2:45 pm) Prescriptions: HYDROcodone/Acet 7.5/325 mg [[place] 7.5-325 mg] 1 tab PO Q4H PRN #42 tablet PRN Reason: Pain Polyethylene Glycol 3350 [MiraLAX] 17 gm PO DAILY #30 powd.pack
[2017-05-01 05:37] LABS: Basophils # 0.1 K/mcL (0.0-0.2); Basophils % 0.4 %; Eosinophils # 0.3 K/mcL (0.0-0.6); Eosinophils % 2.1 %; Hematocrit 32.6 % (37.5-50.1); Hemoglobin 10.4 g/dL (12.9-16.9); Immature Granulocytes % 2.7 % (0-4); Lymphocytes # 2.2 K/mcL (0.6-4.6); Lymphocytes % 16.4 %; Mean Corpuscular HGB Conc 31.9 g/dL (31.6-35.5); Mean Corpuscular Hemoglobin 25.2 pg (28.0-33.3); Mean Corpuscular Volume 79.1 fL (83.0-100.0); Mean Platelet Volume 9.3 fL (9.4-12.4); Monocytes # 0.6 K/mcL (0.0-1.3); Monocytes % 4.5 %; Neutrophils # 10.1 K/mcL (1.6-8.9); Platelet Count 310 K/mcL (140-400); Red Blood Count 4.12 M/mcL (4.19-5.50); Red Cell Distribution Width 14.9 % (11.5-14.5); Segmented Neutrophils % 73.9 %
[2017-05-01 05:50] LABS: Calcium 9.2 mg/dL (8.6-10.8); Potassium 4.9 mEq/L (3.5-4.5)
[2017-05-01] MEDS: Insulin LISPRO 300 UNITS/3 ML VIAL SQ SCH ×8 (06:29→21:02)
[2017-05-01] MEDS: *HR* Rivaroxaban 15 MG TABLET PO SCH (09:36)
[2017-05-01] MEDS: Furosemide 40 MG TABLET PO SCH ×2 (09:36→17:48)
[2017-05-01] MEDS: Loratadine 10 MG TABLET PO SCH (09:36)
[2017-05-01] MEDS: levoFLOXacin 750 MG TABLET PO SCH (09:36)
[2017-05-01] MEDS: Isosorbide MONOnitrate (24 HR) 30 MG TAB.ER.24H PO SCH (09:36)
[2017-05-01] MEDS: Insulin DETEMIR 100 UNIT/ML X5UNITS SQ SCH ×2 (09:53→21:02)
[2017-05-01] MEDS: Diltiazem CD (24hr) 120 MG CAPSULE PO SCH (09:53)
[2017-05-01] MEDS: Metoprolol XL (24 HR) Succ 50 MG TAB.ER.24H PO SCH (09:54)
--- NOTE | 2017-05-01 12:53 | Event Note ---
Date of Encounter: 05/01/17 Time of Encounter: 11:30 Wound Vac applied to Left foot. No leaks noted. Pt provided with instructions and follow-up. Surgery is signed off. D/c planning per medicine. - Patient Status Disposition: Still a Patient Condition: Good Functional capacity at discharge: uses cane/walker (NWB LLE) Overall status at discharge: patient is progressing back to baseline - Discharge Instructions Follow Up With: Billie Van CNP [Primary Care Provider] - Richard Rojas MD [Partnered Physician] - 05/08/17 1:30 pm (In Wound Care 2016 at 1:30pm) Additional Instructions: Change Wound VAc //Monday beginning 05/03/2017. Wound vac to continuous suction otherwise. Non-weight bearing to left lower extremity Wear post-operative shoe when out of bed - Diet and Activity Activity: other (See above) Diet: advance to your usual diet
--- NOTE | 2017-05-01 17:19 | Electrocardiograph Report ---
[place] [id number] Test Date: 2017-05-01 Pat Name: Giancarlo Mercedes Department: 115 Room: 3A47 Gender: M Quarter Doper: [id number] : [id number] Requested By: Riki Matthews Order Number: [id number] Reading MD: Sabrina Bro Measurements Intervals [place] Rate: 50 P: -80 AL: 129 QRS: -13 QRSD: 128 T: -16 QT: 488 QTc: 460 Interpretive Statements ATRIAL FIBRILLATION IVCD LEFTWARD AXIS NONSPECIFIC ST-T ABNORMALITIES Electronically Signed On 05-01-2017 17:17:17 EDT by Sabrina Bro
--- NOTE | 2017-05-01 17:41 | Discharge Summary ---
Date of Encounter: 05/01/17 Time of Encounter: 11:00 - Discharge Diagnosis (1) Diabetic foot ulcer with osteomyelitis Priority: Primary Status: Inactive (2) Acute kidney injury superimposed on CKD Priority: Secondary Status: Acute (3) Congestive heart failure Priority: Primary Status: Chronic Qualifiers: Congestive heart failure type: diastolic Congestive heart failure chronicity: chronic Qualified Code(s): I50.32 - Chronic diastolic (congestive ) heart failure (4) Atrial fibrillation Priority: Secondary Status: Chronic Qualifiers: Atrial fibrillation type: chronic Qualified Code(s): I48.2 - Chronic atrial fibrillation (5) Obstructive sleep apnea Priority: Secondary Status: Chronic (6) Morbid obesity Priority: Secondary Status: Chronic (7) Type 2 diabetes mellitus Priority: Secondary Status: Acute Qualifiers: Diabetes mellitus complication status: with skin complications Diabetes mellitus complication detail: with foot ulcer Diabetes mellitus [facility] insulin use: with [facility] use Qualified Code(s): E11.621 - Type 2 diabetes mellitus with foot ulcer; L97.509 - Non-pressure chronic ulcer of other part of unspecified foot with unspecified severity; 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 - Discharge Medications Prescriptions: HYDROcodone/Acet 7.5/325 mg [[place] 7.5-325 mg] 1 tab PO Q4H PRN #42 tablet PRN Reason: Pain Polyethylene Glycol 3350 [MiraLAX] 17 gm PO DAILY #30 powd.pack Home Medications: Ferrous Sulfate 325 mg PO BID 03/11/15 [History] Lisinopril [Zestril] 10 mg PO DAILY 05/05/15 [History] Aspirin [Lo-Dose Aspirin EC] 81 mg PO QAM 03/11/16 [History] Atorvastatin [Lipitor] 40 mg PO HS 03/11/16 [History] Insulin ASPART [Novolog Flexpen] 20 unit SQ TIDWM 03/11/16 [History] Albuterol Sulfate [Ventolin Hfa] 2 puff IH Q4H PRN 06/07/16 [History] Insulin Glargine [Lantus] 90 unit SQ BID 06/07/16 [History] Cetirizine HCl 10 mg PO DAILY 01/03/17 [History] Diltiazem CD (24hr) [Cardizem CD] 120 mg PO DAILY #30 tab 03/07/17 [Rx] Isosorbide MONOnitrate (24 HR) [Imdur] 30 mg PO DAILY #30 tab 03/07/17 [Rx] Silvasorb 1 appl TP DAILY #1 tub 03/07/17 [Rx] Metoprolol XL (24 HR) Succ [Toprol Xl] 50 mg PO BID 04/22/17 [History] Rivaroxaban [Xarelto] 15 mg PO DAILY 04/22/17 [History] Furosemide [Lasix] 40 mg PO BID 04/23/17 [History] HYDROcodone/Acet 7.5/325 mg [[place] 7.5-325 mg] 1 tab PO Q4H PRN #42 tablet 04/26 [Rx] Polyethylene Glycol 3350 [MiraLAX] 17 gm PO DAILY #30 powd.pack 04/26/17 [Rx] levoFLOXacin [Levaquin] 750 mg PO Q48H 7 Days #14 tablet 05/01/17 [Rx] Allergies/Adverse Reactions: 3 Allergy/AdvReac Type Severity Reaction Status Date / Time No Known Allergies Allergy Verified 01/03/17 12:41 Procedures/tests Complete & Pending: Procedures Performed prior 72 hours Category Date Time Status ECG 12 lead ECG [ECG] Routine Y 04/30/17 23:29 Completed ECG 12 lead ECG [ECG] Routine Y 05/01/17 04:30 Completed Date of admission: 04/22/17 23:20 Primary care physician: Billie Van CNP Consults: 04/23/17 00:00 Consult to Podiatry [CONS] Routine Consulting Provider: Podiat[facility] Reason for Consult: 51M with necrotic left 4th toe, osteomyelitis Call Completed: Yes Consult to Surgery [CONS] Routine Consulting Provider: [facility] Reason for Consult: 51M with necrotic left 4th toe, osteomyelitis Call Completed: Yes Consult to Wound Care [CONS] Routine Reason for Consult: non-healing diabetic foot ulcer on left plantar surface as well as necrotic and infected left 4th toe Call Completed: No 04/23/17 02:45 Consult to Pastoral Services [CONS] Routine Comment: 04/24/17 13:24 Consult to Physical Therapy [CONS] Routine Comment: Evaluate, develop and implement POC Reason for Consult: discharge planning Consult to Afternoon Nanny [CONS] Routine Reason for SW Consult: transporation issues OT [Consult to Occupational Therapy] [CONS] Routine Comment: Evaluate, develop and implement POC Reason for Consult: discharge planning - Patient Status Disposition: Transfer SNF Condition: Good - Discharge Instructions Follow Up With: Billie Van CNP [Primary Care Provider] - Richard Rojas MD [Partnered Physician] - 05/08/17 1:30 pm (In Wound Care 2016 at 1:30pm) Additional Instructions: Daily wound care: remove packing, irrigate with normal saline. Repack calcium alginate and cover with Kerlix. Replace Mario bandage (expected for aprox 1 week) ; will eventually transition to wound vac (wound vac has been ordered and f/u in wound care for at 2:[address] Rojas). Wear Post-operative shoe when out of bed. Non-weightbearing to left lower extremity. Ambulate with walker or crutches per PT/OT eval and treat. Hospital course: Patient is a 51 year old male with past medical history significant for hypertension, hyperlipidemia, type 2 diabetes, coronary artery disease status post CABG, atrial fibrillation on Xarelto, COPD, congestive heart failure, chronic kidney disease who presented to [facility] emergency department with complaints of infected left fourth toe. Patient reported that he had an ulcer on the bottom of his left foot being treated in wound care clinic. He had a cast on his foot for this ulcer, but missed a couple of appointments and left the cast on longer than intended. The cast came off earlier this week per the patient. The day prior to admission he noticed his fourth toe on his left foot was purple, and he thought it was bruised. The day of admission, the foot started draining a foul-smelling purulent drainage and had black necrotic tissue as well. He also reported of fever/chills but denies any pain in his left foot In the ER at [facility], he was found to have leukocytosis (WBC 17.5) and febrile; temperature of 101.3. Foot x-ray showed soft tissue gas about the fourth distal phalanx, with questionable erosive changes of the fourth metatarsal head. He was admitted to [facility] medical floor for further management and evaluation. During patients hospital stay, Gen. surgery was consulted and proceeded with urgent amputation of fourth toe as well as metatarsal head area. During surgery patient was found to have a necrotic left fourth toe in addition to osteomyelitis in the left metatarsal. As a result, the left fourth toe was amputated and the metatarsal head (osteomyelitis) was resected. Patient was continued with IV antibiotic therapy and was later transitioned to oral Levaquin. Patient is now medically stable and will be discharged to long-term facility for rehabilitation. He will also need continue management of uncontrolled diabetes at long-term facility. Daily wound care: remove packing, irrigate with normal saline. Repack calcium alginate and cover with Kerlix. Replace Mario bandage (expected for aprox 1 week) ; will eventually transition to wound vac (wound vac has been ordered and f/u in wound care for at 2:[address] Rojas). - Time Spent with Patient Total time spent providing and/or coordinating discharge services: Less than 30 minutes - Constitutional Vitals: Temp Pulse Resp BP Pulse Ox 97.6 F 50 18 144/76 99 05/01/17 14:47 05/01/17 14:47 05/01/17 14:47 05/01/17 14:47 05/01/17 14:47 General appearance: Present: A&O X 3, pleasant, no acute distress - Cardiovascular Cardiovascular exam: Present: RRR, +S1, +S2. Absent: diastolic murmur, gallop, rubs, systolic murmur - VTE Documentation of Mechanical Device: Intermittent pneumatic compression device
--- NOTE | 2017-05-01 17:45 | Physician Discharge Referral ---
ExtendedCare Referral Info Institutional Level of Care: Skilled - Diagnosis (1) Diabetic foot ulcer with osteomyelitis Status: Inactive (2) Acute kidney injury superimposed on CKD Status: Acute (3) Congestive heart failure Status: Chronic (4) Atrial fibrillation Status: Chronic (5) Obstructive sleep apnea Status: Chronic (6) Morbid obesity Status: Chronic (7) Type 2 diabetes mellitus Status: Acute - Transfer Medications Prescriptions: HYDROcodone/Acet 7.5/325 mg [[place] 7.5-325 mg] 1 tab PO Q4H PRN #42 tablet PRN Reason: Pain Polyethylene Glycol 3350 [MiraLAX] 17 gm PO DAILY #30 powd.pack Home Medications: Ferrous Sulfate 325 mg PO BID 03/11/15 [History] Lisinopril [Zestril] 10 mg PO DAILY 05/05/15 [History] Aspirin [Lo-Dose Aspirin EC] 81 mg PO QAM 03/11/16 [History] Atorvastatin [Lipitor] 40 mg PO HS 03/11/16 [History] Insulin ASPART [Novolog Flexpen] 20 unit SQ TIDWM 03/11/16 [History] Albuterol Sulfate [Ventolin Hfa] 2 puff IH Q4H PRN 06/07/16 [History] Insulin Glargine [Lantus] 90 unit SQ BID 06/07/16 [History] Cetirizine HCl 10 mg PO DAILY 01/03/17 [History] Diltiazem CD (24hr) [Cardizem CD] 120 mg PO DAILY #30 tab 03/07/17 [Rx] Isosorbide MONOnitrate (24 HR) [Imdur] 30 mg PO DAILY #30 tab 03/07/17 [Rx] Silvasorb 1 appl TP DAILY #1 tub 03/07/17 [Rx] Metoprolol XL (24 HR) Succ [Toprol Xl] 50 mg PO BID 04/22/17 [History] Rivaroxaban [Xarelto] 15 mg PO DAILY 04/22/17 [History] Furosemide [Lasix] 40 mg PO BID 04/23/17 [History] HYDROcodone/Acet 7.5/325 mg [[place] 7.5-325 mg] 1 tab PO Q4H PRN #42 tablet 04/26 [Rx] Polyethylene Glycol 3350 [MiraLAX] 17 gm PO DAILY #30 powd.pack 04/26/17 [Rx] levoFLOXacin [Levaquin] 750 mg PO Q48H 7 Days #14 tablet 05/01/17 [Rx] Allergies/Adverse Reactions: 3 Allergy/AdvReac Type Severity Reaction Status Date / Time No Known Allergies Allergy Verified 01/03/17 12:41 - Respiratory Orders Smoking Cessation: Smoking cessation has been advised. For more information, call the [place] Tobacco Quit Line at 9-009-TCOD-NOW. - Rehabiliation Orders Rehab Orders: Evaluation for Physical Therapy CERTIFICATION: I certify that the transfer of the above named patient to an Extended Care Facility is necessary for the continuing treatment of the diagnosis listed. The above information is true and accurate reflection of patient's current condition. Confidential - Redisclosure prohibited without a patient's written consent.
[2017-05-01] MEDS ORDERED: Metoprolol XL (24 HR) Succ 50 MG TAB.ER.24H PO ONE (20:51)
[2017-05-01] MEDS ORDERED: Diltiazem CD (24hr) 120 MG CAPSULE PO ONE (23:55)
[2017-05-02 04:48] LABS: Basophils # 0.1 K/mcL (0.0-0.2); Basophils % 0.4 %; Eosinophils # 0.2 K/mcL (0.0-0.6); Eosinophils % 1.4 %; Hemoglobin 11.2 g/dL (12.9-16.9); Immature Granulocytes % 2.1 % (0-4); Lymphocytes # 1.9 K/mcL (0.6-4.6); Lymphocytes % 13.8 %; Mean Corpuscular Hemoglobin 25.3 pg (28.0-33.3); Mean Platelet Volume 9.2 fL (9.4-12.4); Monocytes # 0.7 K/mcL (0.0-1.3); Monocytes % 4.9 %; Neutrophils # 10.5 K/mcL (1.6-8.9); Platelet Count 324 K/mcL (140-400); Red Blood Count 4.43 M/mcL (4.19-5.50); Red Cell Distribution Width 15.1 % (11.5-14.5); Segmented Neutrophils % 77.4 %
[2017-05-02 05:01] LABS: Calcium 9.4 mg/dL (8.6-10.8); Potassium 5.8 mEq/L (3.5-4.5)
[2017-05-02] MEDS: Insulin LISPRO 300 UNITS/3 ML VIAL SQ SCH ×7 (08:35→21:13)
[2017-05-02] MEDS: *HR* Rivaroxaban 15 MG TABLET PO SCH (08:35)
[2017-05-02] MEDS: Furosemide 40 MG TABLET PO SCH ×2 (08:35→17:00)
[2017-05-02] MEDS: Metoprolol XL (24 HR) Succ 50 MG TAB.ER.24H PO SCH (08:35)
[2017-05-02] MEDS: Loratadine 10 MG TABLET PO SCH (08:35)
[2017-05-02] MEDS: Insulin DETEMIR 100 UNIT/ML X5UNITS SQ SCH ×2 (08:35→21:13)
[2017-05-02] MEDS: Diltiazem CD (24hr) 120 MG CAPSULE PO SCH (08:35)
[2017-05-02] MEDS: Isosorbide MONOnitrate (24 HR) 30 MG TAB.ER.24H PO SCH (08:35)
--- NOTE | 2017-05-02 11:45 | Internal Med Progress Note ---
Date of Encounter: 05/02/17 Time of Encounter: 09:45 - Assessment and plan (1) Hyperkalemia Current Visit: Yes Status: Acute Assessment and plan: K today 5.8 Given Kayexalate 30gm Rpt Potassium (2) Congestive heart failure Current Visit: Yes Status: Chronic Assessment and plan: -Patient euvolemic; will continue to monitor. Qualifiers: Congestive heart failure type: diastolic Congestive heart failure chronicity: chronic Qualified Code(s): I50.32 - Chronic diastolic (congestive ) heart failure (3) Obstructive sleep apnea Current Visit: Yes Status: Chronic Assessment and plan: Continue CPAP during night (4) Morbid obesity Current Visit: Yes Status: Chronic Assessment and plan: Lifestyle modifications. (5) Acute kidney injury superimposed on CKD Current Visit: Yes Status: Acute Assessment and plan: -Creatinine is at baseline, continue to monitor (6) Atrial fibrillation Current Visit: Yes Status: Chronic Assessment and plan: -Rate controlled; continue home medications and anticoagulation with Xarelto. Qualifiers: Atrial fibrillation type: chronic Qualified Code(s): I48.2 - Chronic atrial fibrillation (7) Diabetes Current Visit: Yes Status: Chronic Assessment and plan: Continue basal and sliding-scale insulin coverage. Adjust the dose of insulin to get adequate blood sugar control Qualifiers: Diabetes mellitus type: type 2 Diabetes mellitus complication status: with kidney complications Diabetes mellitus complication detail: with other kidney complication Diabetes mellitus terminal worker insulin use: with alf use Qualified Code(s): E11.29 - Type 2 diabetes mellitus with other diabetic kidney complication; Z79.4 - residential (current) use of insulin; Z79.4 - technician terminal and repeater ( current) use of insulin; Z79.4 - technician terminal and repeater (current) use of insulin; Z79.4 - residential (current) use of insulin (8) Diabetic foot ulcer Current Visit: Yes Status: Chronic Qualifiers: Diabetic foot ulcer location: toe Diabetes mellitus type: type 1 Laterality: left Non-pressure ulcer stage: unspecified non-pressure ulcer stage Qualified Code(s): E10.621 - Type 1 diabetes mellitus with foot ulcer; L97.529 - Non-pressure chronic ulcer of other part of left foot with unspecified severity; L97.529 - Non-pressure chronic ulcer of other part of left foot with unspecified severity; L97.529 - Non-pressure chronic ulcer of other part of left foot with unspecified severity; L97.529 - Non-pressure chronic ulcer of other part of left foot with unspecified severity (9) CAD (coronary artery disease) Current Visit: Yes Status: Chronic Assessment and plan: Denies chest pain. Continue home medications Qualifiers: Coronary Disease-Associated Artery/Lesion type: [place] artery [place] vs. transplanted heart: [place] heart Associated angina: without angina Qualified Code(s): I25.10 - Atherosclerotic heart disease of [place] coronary artery without angina pectoris (10) Chronic kidney disease, stage III (moderate) Current Visit: Yes Status: Chronic Assessment and plan: Avoid the nephrotoxic medications. CR is at baseline (11) Diabetic foot ulcer Current Visit: Yes Status: Acute Assessment and plan: POD #8 4th toe amputation (Left) foot. Awaiting ECF placement. Per surgery recommendations: -Daily wound care: remove packing, irrigate with normal saline. Repack calcium alginate and cover with Kerlix. -Replace Mario bandage (expected for aprox 1 week); will eventually transition to wound vac (wound vac has been ordered and f/u in wound care for at 2: [address] Rojas). Qualifiers: Diabetic foot ulcer location: midfoot Diabetes mellitus type: type 2 Laterality: left Non-pressure ulcer stage: limited to breakdown of skin Qualified Code(s): E11.621 - Type 2 diabetes mellitus with foot ulcer; L97.421 - Non-pressure chronic ulcer of left heel and midfoot limited to breakdown of skin; L97.421 - Non-pressure chronic ulcer of left heel and midfoot limited to breakdown of skin; L97.421 - Non-pressure chronic ulcer of left heel and midfoot limited to breakdown of skin; L97.421 - Non-pressure chronic ulcer of left heel and midfoot limited to breakdown of skin - Subjective Interval history: Seen and evaluated at bedside He denies new complains He is stale on current therapy Awaiting placement to SNF - Constitutional Vitals: Temp Pulse Resp BP Pulse Ox 98.0 F 68 16 119/62 95 05/02/17 10:28 05/02/17 10:28 05/02/17 10:28 05/02/17 10:28 05/02/17 10:28 General appearance: Present: A&O X 3, pleasant, no acute distress - Head Head exam: Present: atraumatic, normocephalic - Eye Eye exam: Present: PERRL, conjuntiva pink, sclera anicteric Pupils: Present: PERRL - Neck Neck exam general surgery: Present: supple, trachea midline. Absent: lymphadenopathy - Respiratory Respiratory exam: Present: CTAB. Absent: accessory muscle use, rales, rhonchi, wheezes - Cardiovascular Cardiovascular exam: Present: irregular rhythm, +S1, +S2. Absent: diastolic murmur, gallop, rubs, systolic murmur - GI/Abdominal GI/Abdominal exam: Present: normal bowel sounds, soft, no peritoneal signs. Absent: distended, tenderness - Extremities Exam Extremities exam: Present: warm, radial pulses palpable and symmetrical. Absent : calf tenderness, cyanotic, pedal edema Additional comments: L foot with transparent dressing, clean and dry, with wound vac in-situ. Neurovascularly intact - Neurological Exam Neurological exam: Present: alert, CN II-XII intact, oriented X3, no focal deficits. Absent: pronater drift, facial droop, speech deficit - Skin Skin exam: Present: dry Internal Medicine: Result - Labs CBC & Chem 7: 05/02/17 04:28 05/02/17 04:28 Labs: Short CBC 05/02/17 Range/Units 04:28 WBC 13.5 H (4.3-11.1) K/mcL Hgb 11.2 L (12.9-16.9) g/dL Hct 35.0 L (37.5-50.1) % Plt Count 324 (140-400) K/mcL Neutrophils # 10.5 H (1.6-8.9) K/mcL BMP 05/02/17 04:28 Sodium 133 L Potassium 5.8 H Chloride 105 Carbon Dioxide 20 BUN 64 H Creatinine 2.40 H Glucose 245 H Calcium 9.4 - VTE Documentation of Mechanical Device: Intermittent pneumatic compression device Consult Discharge Plan - Plan Additional Instructions: Daily wound care: remove packing, irrigate with normal saline. Repack calcium alginate and cover with Kerlix. Replace Mario bandage (expected for aprox 1 week) ; will eventually transition to wound vac (wound vac has been ordered and f/u in wound care for at 2:[address] Rojas). Wear Post-operative shoe when out of bed. Non-weightbearing to left lower extremity. Ambulate with walker or crutches per PT/OT eval and treat. Referrals: Billie Van CNP [Primary Care Provider] - Richard Rojas MD [Partnered Physician] - 05/08/17 1:30 pm (In Wound Care 2016 at 1:30pm) Prescriptions: HYDROcodone/Acet 7.5/325 mg [[place] 7.5-325 mg] 1 tab PO Q4H PRN #42 tablet PRN Reason: Pain Polyethylene Glycol 3350 [MiraLAX] 17 gm PO DAILY #30 powd.pack
[2017-05-03 06:44] LABS: Calcium 9.3 mg/dL (8.6-10.8); Potassium 4.2 mEq/L (3.5-4.5)
[2017-05-03 07:09] LABS: Basophils # 0.1 K/mcL (0.0-0.2); Basophils % 0.4 %; Eosinophils # 0.2 K/mcL (0.0-0.6); Eosinophils % 1.7 %; Hemoglobin 10.4 g/dL (12.9-16.9); Immature Granulocytes % 1.3 % (0-4); Lymphocytes # 2.1 K/mcL (0.6-4.6); Lymphocytes % 18.7 %; Mean Corpuscular HGB Conc 30.6 g/dL (31.6-35.5); Mean Corpuscular Hemoglobin 24.4 pg (28.0-33.3); Mean Corpuscular Volume 79.6 fL (83.0-100.0); Mean Platelet Volume 9.4 fL (9.4-12.4); Monocytes # 0.7 K/mcL (0.0-1.3); Monocytes % 6.4 %; Platelet Count 280 K/mcL (140-400); Red Blood Count 4.27 M/mcL (4.19-5.50); Red Cell Distribution Width 15.4 % (11.5-14.5); Segmented Neutrophils % 71.5 %
[2017-05-03] MEDS: Insulin LISPRO 300 UNITS/3 ML VIAL SQ SCH ×7 (09:00→20:57)
[2017-05-03] MEDS: Diltiazem CD (24hr) 120 MG CAPSULE PO SCH (09:05)
[2017-05-03] MEDS: Furosemide 40 MG TABLET PO SCH ×2 (09:06→16:31)
[2017-05-03] MEDS: *HR* Rivaroxaban 15 MG TABLET PO SCH (09:06)
[2017-05-03] MEDS: Metoprolol XL (24 HR) Succ 50 MG TAB.ER.24H PO SCH (09:06)
[2017-05-03] MEDS: Isosorbide MONOnitrate (24 HR) 30 MG TAB.ER.24H PO SCH (09:06)
[2017-05-03] MEDS: Loratadine 10 MG TABLET PO SCH (09:06)
[2017-05-03] MEDS: Insulin DETEMIR 100 UNIT/ML X5UNITS SQ SCH ×2 (09:18→20:55)
--- NOTE | 2017-05-03 12:48 | Internal Med Progress Note ---
Date of Encounter: 05/03/17 Time of Encounter: 12:45 - Assessment and plan (1) Hyperkalemia Current Visit: Yes Status: Resolved Assessment and plan: K 5.8 103. Improved to 4.2 this a.m (2) Congestive heart failure Current Visit: Yes Status: Chronic Assessment and plan: -Patient euvolemic; will continue to monitor. Qualifiers: Congestive heart failure type: diastolic Congestive heart failure chronicity: chronic Qualified Code(s): I50.32 - Chronic diastolic (congestive ) heart failure (3) Obstructive sleep apnea Current Visit: Yes Status: Chronic Assessment and plan: Continue CPAP during night (4) Morbid obesity Current Visit: Yes Status: Chronic Assessment and plan: Lifestyle modifications. (5) Acute kidney injury superimposed on CKD Current Visit: Yes Status: Acute Assessment and plan: -Creatinine is at baseline, continue to monitor (6) Atrial fibrillation Current Visit: Yes Status: Chronic Assessment and plan: -Rate controlled; continue home medications and anticoagulation with Xarelto. Qualifiers: Atrial fibrillation type: chronic Qualified Code(s): I48.2 - Chronic atrial fibrillation (7) Diabetes Current Visit: Yes Status: Chronic Assessment and plan: Continue basal and sliding-scale insulin coverage. Adjust the dose of insulin to get adequate blood sugar control FS currently acceptable Qualifiers: Diabetes mellitus type: type 2 Diabetes mellitus complication status: with kidney complications Diabetes mellitus complication detail: with other kidney complication Diabetes mellitus laborer marine terminal insulin use: with laborer marine terminal use Qualified Code(s): E11.29 - Type 2 diabetes mellitus with other diabetic kidney complication; Z79.4 - detention (current) use of insulin; Z79.4 - detention ( current) use of insulin; Z79.4 - oysterman (current) use of insulin; Z79.4 - oysterman (current) use of insulin (8) Diabetic foot ulcer Current Visit: Yes Status: Chronic Qualifiers: Diabetic foot ulcer location: toe Diabetes mellitus type: type 1 Laterality: left Non-pressure ulcer stage: unspecified non-pressure ulcer stage Qualified Code(s): E10.621 - Type 1 diabetes mellitus with foot ulcer; L97.529 - Non-pressure chronic ulcer of other part of left foot with unspecified severity; L97.529 - Non-pressure chronic ulcer of other part of left foot with unspecified severity; L97.529 - Non-pressure chronic ulcer of other part of left foot with unspecified severity; L97.529 - Non-pressure chronic ulcer of other part of left foot with unspecified severity (9) CAD (coronary artery disease) Current Visit: Yes Status: Chronic Assessment and plan: Denies chest pain. Continue home medications Qualifiers: Coronary Disease-Associated Artery/Lesion type: [place] artery [place] vs. transplanted heart: [place] heart Associated angina: without angina Qualified Code(s): I25.10 - Atherosclerotic heart disease of [place] coronary artery without angina pectoris (10) Chronic kidney disease, stage III (moderate) Current Visit: Yes Status: Chronic Assessment and plan: Avoid the nephrotoxic medications. CR is at baseline (11) Diabetic foot ulcer Current Visit: Yes Status: Acute Assessment and plan: POD #9 4th toe amputation (Left) foot. has completed 8 days of antibiotics Awaiting ECF placement. Per surgery recommendations: -Daily wound care: remove packing, irrigate with normal saline. Repack calcium alginate and cover with Kerlix. -Replace Mario bandage (expected for aprox 1 week); will eventually transition to wound vac (wound vac has been ordered and f/u in wound care for at 2: [address] Rojas). Qualifiers: Diabetic foot ulcer location: midfoot Diabetes mellitus type: type 2 Laterality: left Non-pressure ulcer stage: limited to breakdown of skin Qualified Code(s): E11.621 - Type 2 diabetes mellitus with foot ulcer; L97.421 - Non-pressure chronic ulcer of left heel and midfoot limited to breakdown of skin; L97.421 - Non-pressure chronic ulcer of left heel and midfoot limited to breakdown of skin; L97.421 - Non-pressure chronic ulcer of left heel and midfoot limited to breakdown of skin; L97.421 - Non-pressure chronic ulcer of left heel and midfoot limited to breakdown of skin - Subjective Interval history: Seen and evaluated at bedside He denies new complains He is stale on current therapy Awaiting placement to SNF - Constitutional Vitals: Temp Pulse Resp BP Pulse Ox 97.9 F 54 18 133/74 100 05/03/17 12:11 05/03/17 12:11 05/03/17 12:11 05/03/17 12:11 05/03/17 12:11 General appearance: Present: A&O X 3, pleasant, no acute distress - Head Head exam: Present: atraumatic, normocephalic - Eye Eye exam: Present: PERRL, conjuntiva pink, sclera anicteric Pupils: Present: PERRL - Neck Neck exam general surgery: Present: supple, trachea midline. Absent: lymphadenopathy - Respiratory Respiratory exam: Present: CTAB. Absent: accessory muscle use, rales, rhonchi, wheezes - Cardiovascular Cardiovascular exam: Present: RRR, +S1, +S2. Absent: diastolic murmur, gallop, rubs, systolic murmur - GI/Abdominal GI/Abdominal exam: Present: normal bowel sounds, soft, no peritoneal signs. Absent: distended, tenderness - Extremities Exam Extremities exam: Present: warm, radial pulses palpable and symmetrical. Absent : calf tenderness, cyanotic, pedal edema Additional comments: L foot with transparent dressing, clean and dry, with wound vac in-situ. Neurovascularly intact - Neurological Exam Neurological exam: Present: alert, CN II-XII intact, oriented X3, no focal deficits. Absent: pronater drift, facial droop, speech deficit - Skin Skin exam: Present: dry Internal Medicine: Result - Labs CBC & Chem 7: 05/03/17 05:59 05/03/17 05:59 Labs: Short CBC 05/03/17 Range/Units 05:59 WBC 11.2 H (4.3-11.1) K/mcL Hgb 10.4 L (12.9-16.9) g/dL Hct 34.0 L (37.5-50.1) % Plt Count 280 (140-400) K/mcL Neutrophils # 8.0 (1.6-8.9) K/mcL BMP 05/03/17 05:59 Sodium 135 L Potassium 4.2 D Chloride 105 Carbon Dioxide 22 BUN 69 H Creatinine 2.50 H Glucose 126 H Calcium 9.3 - VTE Documentation of Mechanical Device: Intermittent pneumatic compression device Consult Discharge Plan - Plan Additional Instructions: Daily wound care: remove packing, irrigate with normal saline. Repack calcium alginate and cover with Kerlix. Replace Mario bandage (expected for aprox 1 week) ; will eventually transition to wound vac (wound vac has been ordered and f/u in wound care for at 2:[address] Rojas). Wear Post-operative shoe when out of bed. Non-weightbearing to left lower extremity. Ambulate with walker or crutches per PT/OT eval and treat. Referrals: Billie Van CNP [Primary Care Provider] - Richard Rojas MD [Partnered Physician] - 05/08/17 1:30 pm (In Wound Care 2016 at 1:30pm) Prescriptions: HYDROcodone/Acet 7.5/325 mg [[place] 7.5-325 mg] 1 tab PO Q4H PRN #42 tablet PRN Reason: Pain Polyethylene Glycol 3350 [MiraLAX] 17 gm PO DAILY #30 powd.pack
[2017-05-03] MEDS: Doxycycline 100 MG CAPSULE PO SCH (20:02)
[2017-05-04] MEDS: Insulin LISPRO 300 UNITS/3 ML VIAL SQ SCH ×7 (08:25→20:30)
[2017-05-04] MEDS: Diltiazem CD (24hr) 120 MG CAPSULE PO SCH (08:26)
[2017-05-04] MEDS: Furosemide 40 MG TABLET PO SCH ×2 (08:26→16:58)
[2017-05-04] MEDS: Doxycycline 100 MG CAPSULE PO SCH ×2 (08:27→20:28)
[2017-05-04] MEDS: Loratadine 10 MG TABLET PO SCH (08:27)
[2017-05-04] MEDS: Isosorbide MONOnitrate (24 HR) 30 MG TAB.ER.24H PO SCH (08:29)
[2017-05-04] MEDS: Insulin DETEMIR 100 UNIT/ML X5UNITS SQ SCH ×2 (08:30→20:28)
[2017-05-04] MEDS: *HR* Rivaroxaban 15 MG TABLET PO SCH (08:31)
[2017-05-04] MEDS: Metoprolol XL (24 HR) Succ 50 MG TAB.ER.24H PO SCH (08:31)
--- NOTE | 2017-05-04 10:28 | Internal Med Progress Note ---
Date of Encounter: 05/04/17 Time of Encounter: 10:28 - Assessment and plan (1) Bacteremia Current Visit: Yes Status: Acute Assessment and plan: Blood culture from [facility] on 04/22 grew MSSA Patient received some antibiotic coverage Blood culture repeat ordered 05/03 Patient is clinically improved Continue Doxycycline Await repeat blood culture prior to discharge (2) Sepsis Current Visit: Yes Status: Resolved Qualifiers: Sepsis type: methicillin susceptible Staphylococcus aureus Qualified Code(s ): A41.01 - Sepsis due to Methicillin susceptible Staphylococcus aureus (3) Hyperkalemia Current Visit: Yes Status: Resolved Assessment and plan: Resolved, repeat Chem a.m (4) Congestive heart failure Current Visit: Yes Status: Chronic Assessment and plan: -Patient euvolemic; will continue to monitor. Qualifiers: Congestive heart failure type: diastolic Congestive heart failure chronicity: chronic Qualified Code(s): I50.32 - Chronic diastolic (congestive ) heart failure (5) Obstructive sleep apnea Current Visit: Yes Status: Chronic Assessment and plan: Continue CPAP during night (6) Morbid obesity Current Visit: Yes Status: Chronic Assessment and plan: Lifestyle modifications. (7) Acute kidney injury superimposed on CKD Current Visit: Yes Status: Resolved Assessment and plan: -Creatinine is at baseline, continue to monitor (8) Atrial fibrillation Current Visit: Yes Status: Chronic Assessment and plan: -Rate controlled; continue home medications and anticoagulation with Xarelto. Qualifiers: Atrial fibrillation type: chronic Qualified Code(s): I48.2 - Chronic atrial fibrillation (9) Diabetes Current Visit: Yes Status: Chronic Assessment and plan: Continue basal and sliding-scale insulin coverage. Adjust the dose of insulin to get adequate blood sugar control FS currently acceptable Qualifiers: Diabetes mellitus type: type 2 Diabetes mellitus complication status: with kidney complications Diabetes mellitus complication detail: with other kidney complication Diabetes mellitus ferry terminal agent insulin use: with [facility] use Qualified Code(s): E11.29 - Type 2 diabetes mellitus with other diabetic kidney complication; Z79.4 - detention (current) use of insulin; Z79.4 - ferry terminal agent ( current) use of insulin; Z79.4 - detention (current) use of insulin; Z79.4 - ferry terminal agent (current) use of insulin (10) Diabetic foot ulcer Current Visit: Yes Status: Chronic Qualifiers: Diabetic foot ulcer location: toe Diabetes mellitus type: type 1 Laterality: left Non-pressure ulcer stage: unspecified non-pressure ulcer stage Qualified Code(s): E10.621 - Type 1 diabetes mellitus with foot ulcer; L97.529 - Non-pressure chronic ulcer of other part of left foot with unspecified severity; L97.529 - Non-pressure chronic ulcer of other part of left foot with unspecified severity; L97.529 - Non-pressure chronic ulcer of other part of left foot with unspecified severity; L97.529 - Non-pressure chronic ulcer of other part of left foot with unspecified severity (11) CAD (coronary artery disease) Current Visit: Yes Status: Chronic Assessment and plan: Denies chest pain. Continue home medications Qualifiers: Coronary Disease-Associated Artery/Lesion type: [place] artery [place] vs. transplanted heart: [place] heart Associated angina: without angina Qualified Code(s): I25.10 - Atherosclerotic heart disease of [place] coronary artery without angina pectoris (12) Chronic kidney disease, stage III (moderate) Current Visit: Yes Status: Chronic Assessment and plan: Avoid the nephrotoxic medications. CR is at baseline (13) Diabetic foot ulcer Current Visit: Yes Status: Acute Assessment and plan: POD #10 4th toe amputation (Left) foot. has completed 8 days of antibiotics Awaiting ECF placement. Per surgery recommendations: -Daily wound care: remove packing, irrigate with normal saline. Repack calcium alginate and cover with Kerlix. -Replace Mario bandage (expected for aprox 1 week); will eventually transition to wound vac (wound vac has been ordered and f/u in wound care for at 2: [address] Rojas). Qualifiers: Diabetic foot ulcer location: midfoot Diabetes mellitus type: type 2 Laterality: left Non-pressure ulcer stage: limited to breakdown of skin Qualified Code(s): E11.621 - Type 2 diabetes mellitus with foot ulcer; L97.421 - Non-pressure chronic ulcer of left heel and midfoot limited to breakdown of skin; L97.421 - Non-pressure chronic ulcer of left heel and midfoot limited to breakdown of skin; L97.421 - Non-pressure chronic ulcer of left heel and midfoot limited to breakdown of skin; L97.421 - Non-pressure chronic ulcer of left heel and midfoot limited to breakdown of skin - Subjective Interval history: Seen and evaluated at bedside He denies new complains He is stale on current therapy Awaiting placement to SNF Patient had MSSA bacteremia and sepsis on admission Sepsis has resolved, repeat blood culture is pending - Constitutional Vitals: Temp Pulse Resp BP Pulse Ox 98.1 F 56 16 140/63 100 05/04/17 08:16 05/04/17 08:16 05/04/17 08:16 05/04/17 08:16 05/04/17 08:16 General appearance: Present: A&O X 3, pleasant, no acute distress - Head Head exam: Present: atraumatic, normocephalic - Eye Eye exam: Present: PERRL, conjuntiva pink, sclera anicteric Pupils: Present: PERRL - Neck Neck exam general surgery: Present: supple, trachea midline. Absent: lymphadenopathy - Respiratory Respiratory exam: Present: CTAB. Absent: accessory muscle use, rales, rhonchi, wheezes - Cardiovascular Cardiovascular exam: Present: irregular rhythm, +S1, +S2. Absent: diastolic murmur, gallop, rubs, systolic murmur - GI/Abdominal GI/Abdominal exam: Present: normal bowel sounds, soft, no peritoneal signs. Absent: distended, tenderness - Extremities Exam Extremities exam: Present: warm, radial pulses palpable and symmetrical. Absent : calf tenderness, cyanotic, pedal edema Additional comments: L foot wound vac, looks clean, s/p 4th toe amputation - Neurological Exam Neurological exam: Present: alert, CN II-XII intact, oriented X3, no focal deficits. Absent: pronater drift, facial droop, speech deficit - Skin Skin exam: Present: dry, intact Internal Medicine: Result - Labs CBC & Chem 7: 05/03/17 05:59 05/03/17 05:59 - VTE Documentation of Mechanical Device: Intermittent pneumatic compression device Consult Discharge Plan - Plan Additional Instructions: Daily wound care: remove packing, irrigate with normal saline. Repack calcium alginate and cover with Kerlix. Replace Mario bandage (expected for aprox 1 week) ; will eventually transition to wound vac (wound vac has been ordered and f/u in wound care for at 2:[address] Rojas). Wear Post-operative shoe when out of bed. Non-weightbearing to left lower extremity. Ambulate with walker or crutches per PT/OT eval and treat. Referrals: Billie Van CNP [Primary Care Provider] - Richard Rojas MD [Partnered Physician] - 05/08/17 1:30 pm (In Wound Care 2016 at 1:30pm) Prescriptions: Doxycycline 100 mg PO BID #30 capsule HYDROcodone/Acet 7.5/325 mg [[place] 7.5-325 mg] 1 tab PO Q4H PRN #42 tablet PRN Reason: Pain Polyethylene Glycol 3350 [MiraLAX] 17 gm PO DAILY #30 powd.pack
--- NOTE | 2017-05-04 10:40 | Physician Discharge Referral ---
ExtendedCare Referral Info Transfer To: ECF/SNF Provider in Charge: [facility] [place] Provider in Charge after Transfer: PCP Institutional Level of Care: Skilled - Diagnosis (1) Hyperkalemia Priority: Primary Status: Resolved (2) Congestive heart failure Priority: Secondary Status: Chronic (3) Obstructive sleep apnea Priority: Secondary Status: Chronic (4) Morbid obesity Priority: Secondary Status: Chronic (5) Acute kidney injury superimposed on CKD Priority: Primary Status: Resolved (6) Atrial fibrillation Priority: Secondary Status: Chronic (7) Diabetes Priority: Secondary Status: Chronic (8) Diabetic foot ulcer Priority: Secondary Status: Chronic (9) CAD (coronary artery disease) Priority: Secondary Status: Chronic (10) Chronic kidney disease, stage III (moderate) Priority: Secondary Status: Chronic (11) Diabetic foot ulcer Priority: Secondary Status: Acute - Transfer Medications Prescriptions: Doxycycline 100 mg PO BID #30 capsule HYDROcodone/Acet 7.5/325 mg [[place] 7.5-325 mg] 1 tab PO Q4H PRN #42 tablet PRN Reason: Pain Polyethylene Glycol 3350 [MiraLAX] 17 gm PO DAILY #30 powd.pack Home Medications: Ferrous Sulfate 325 mg PO BID 03/11/15 [History] Lisinopril [Zestril] 10 mg PO DAILY 05/05/15 [History] Aspirin [Lo-Dose Aspirin EC] 81 mg PO QAM 03/11/16 [History] Atorvastatin [Lipitor] 40 mg PO HS 03/11/16 [History] Insulin ASPART [Novolog Flexpen] 20 unit SQ TIDWM 03/11/16 [History] Albuterol Sulfate [Ventolin Hfa] 2 puff IH Q4H PRN 06/07/16 [History] Insulin Glargine [Lantus] 90 unit SQ BID 06/07/16 [History] Cetirizine HCl 10 mg PO DAILY 01/03/17 [History] Diltiazem CD (24hr) [Cardizem CD] 120 mg PO DAILY #30 tab 03/07/17 [Rx] Isosorbide MONOnitrate (24 HR) [Imdur] 30 mg PO DAILY #30 tab 03/07/17 [Rx] Silvasorb 1 appl TP DAILY #1 tub 03/07/17 [Rx] Metoprolol XL (24 HR) Succ [Toprol Xl] 50 mg PO BID 04/22/17 [History] Rivaroxaban [Xarelto] 15 mg PO DAILY 04/22/17 [History] Furosemide [Lasix] 40 mg PO BID 04/23/17 [History] HYDROcodone/Acet 7.5/325 mg [[place] 7.5-325 mg] 1 tab PO Q4H PRN #42 tablet 04/26 [Rx] Polyethylene Glycol 3350 [MiraLAX] 17 gm PO DAILY #30 powd.pack 04/26/17 [Rx] levoFLOXacin [Levaquin] 750 mg PO Q48H 7 Days #14 tablet 05/01/17 [Rx] Doxycycline 100 mg PO BID #30 capsule 05/03/17 [Rx] Allergies/Adverse Reactions: 3 Allergy/AdvReac Type Severity Reaction Status Date / Time No Known Allergies Allergy Verified 01/03/17 12:41 - Respiratory Orders Oxygen / L per min (2L/min) Smoking Cessation: Smoking cessation has been advised. For more information, call the [employer] Quit Line at 2-294-OYYC-NOW. - Advance Directives Living Will: Yes Code Status: Full Code - Mobility Orders Other ( Per PT) - Rehabiliation Orders Rehab Orders: Evaluation for Physical Therapy - Treatments List/Other: Wound Vac M/W/F -Daily wound care: remove packing, irrigate with normal saline. Repack calcium alginate and cover with Kerlix. -Replace Mario bandage - Diet Orders No Added Salt (RENEA), No Concentrated Sweets, Cardiac CERTIFICATION: I certify that the transfer of the above named patient to an Extended Care Facility is necessary for the continuing treatment of the diagnosis listed. The above information is true and accurate reflection of patient's current condition. Confidential - Redisclosure prohibited without a patient's written consent.
[2017-05-05 06:37] LABS: Basophils # 0.1 K/mcL (0.0-0.2); Basophils % 0.3 %; Eosinophils # 0.2 K/mcL (0.0-0.6); Eosinophils % 1.4 %; Hematocrit 35.9 % (37.5-50.1); Hemoglobin 11.1 g/dL (12.9-16.9); Immature Granulocytes % 0.9 % (0-4); Lymphocytes # 2.2 K/mcL (0.6-4.6); Lymphocytes % 14.9 %; Mean Corpuscular HGB Conc 30.9 g/dL (31.6-35.5); Mean Corpuscular Hemoglobin 24.8 pg (28.0-33.3); Mean Corpuscular Volume 80.1 fL (83.0-100.0); Mean Platelet Volume 9.5 fL (9.4-12.4); Monocytes # 0.8 K/mcL (0.0-1.3); Monocytes % 5.4 %; Neutrophils # 11.3 K/mcL (1.6-8.9); Platelet Count 322 K/mcL (140-400); Red Blood Count 4.48 M/mcL (4.19-5.50); Red Cell Distribution Width 15.4 % (11.5-14.5); Segmented Neutrophils % 77.1 %
[2017-05-05 06:50] LABS: Calcium 9.7 mg/dL (8.6-10.8); Potassium 4.8 mEq/L (3.5-4.5)
[2017-05-05 07:36] VITALS: BP 135/69
[2017-05-05] MEDS: Insulin LISPRO 300 UNITS/3 ML VIAL SQ SCH ×4 (09:02→11:52)
[2017-05-05] MEDS: Insulin DETEMIR 100 UNIT/ML X5UNITS SQ SCH (09:07)
[2017-05-05] MEDS: Isosorbide MONOnitrate (24 HR) 30 MG TAB.ER.24H PO SCH (09:07)
[2017-05-05] MEDS: Doxycycline 100 MG CAPSULE PO SCH (09:07)
[2017-05-05] MEDS: Metoprolol XL (24 HR) Succ 50 MG TAB.ER.24H PO SCH (09:08)
[2017-05-05] MEDS: Loratadine 10 MG TABLET PO SCH (09:08)
[2017-05-05] MEDS: Diltiazem CD (24hr) 120 MG CAPSULE PO SCH (09:08)
[2017-05-05] MEDS: *HR* Rivaroxaban 15 MG TABLET PO SCH (09:08)
[2017-05-05] MEDS: Furosemide 40 MG TABLET PO SCH (09:08)
--- NOTE | 2017-05-05 09:30 | Discharge Summary ---
Date of Encounter: 05/05/17 Time of Encounter: 09:28 - Discharge Diagnosis (1) Bacteremia Priority: Primary Status: Resolved (2) Sepsis Priority: Primary Status: Resolved Qualifiers: Sepsis type: methicillin susceptible Staphylococcus aureus Qualified Code(s ): A41.01 - Sepsis due to Methicillin susceptible Staphylococcus aureus (3) Hyperkalemia Priority: Primary Status: Resolved (4) Congestive heart failure Priority: Secondary Status: Chronic Qualifiers: Congestive heart failure type: diastolic Congestive heart failure chronicity: chronic Qualified Code(s): I50.32 - Chronic diastolic (congestive ) heart failure (5) Obstructive sleep apnea Priority: Secondary Status: Chronic (6) Morbid obesity Priority: Secondary Status: Chronic (7) Acute kidney injury superimposed on CKD Priority: Primary Status: Resolved (8) Atrial fibrillation Priority: Secondary Status: Chronic Qualifiers: Atrial fibrillation type: chronic Qualified Code(s): I48.2 - Chronic atrial fibrillation (9) Diabetes Priority: Secondary Status: Chronic Qualifiers: Diabetes mellitus type: type 2 Diabetes mellitus complication status: with kidney complications Diabetes mellitus complication detail: with other kidney complication Diabetes mellitus material control manager insulin use: with material control manager use Qualified Code(s): E11.29 - Type 2 diabetes mellitus with other diabetic kidney complication; Z79.4 - postbed stitcher (current) use of insulin; Z79.4 - half-way ( current) use of insulin; Z79.4 - postbed stitcher (current) use of insulin; Z79.4 - half-way (current) use of insulin (10) Diabetic foot ulcer Priority: Secondary Status: Chronic Qualifiers: Diabetic foot ulcer location: toe Diabetes mellitus type: type 1 Laterality: left Non-pressure ulcer stage: unspecified non-pressure ulcer stage Qualified Code(s): E10.621 - Type 1 diabetes mellitus with foot ulcer; L97.529 - Non-pressure chronic ulcer of other part of left foot with unspecified severity; L97.529 - Non-pressure chronic ulcer of other part of left foot with unspecified severity; L97.529 - Non-pressure chronic ulcer of other part of left foot with unspecified severity; L97.529 - Non-pressure chronic ulcer of other part of left foot with unspecified severity (11) CAD (coronary artery disease) Priority: Secondary Status: Chronic Qualifiers: Coronary Disease-Associated Artery/Lesion type: [place] artery [place] vs. transplanted heart: comanche heart Associated angina: without angina Qualified Code(s): I25.10 - Atherosclerotic heart disease of [place] coronary artery without angina pectoris (12) Chronic kidney disease, stage III (moderate) Priority: Secondary Status: Chronic (13) Diabetic foot ulcer Priority: Primary Status: Acute Qualifiers: Diabetic foot ulcer location: midfoot Diabetes mellitus type: type 2 Laterality: left Non-pressure ulcer stage: limited to breakdown of skin Qualified Code(s): E11.621 - Type 2 diabetes mellitus with foot ulcer; L97.421 - Non-pressure chronic ulcer of left heel and midfoot limited to breakdown of skin; L97.421 - Non-pressure chronic ulcer of left heel and midfoot limited to breakdown of skin; L97.421 - Non-pressure chronic ulcer of left heel and midfoot limited to breakdown of skin; L97.421 - Non-pressure chronic ulcer of left heel and midfoot limited to breakdown of skin - Discharge Medications Prescriptions: Doxycycline 100 mg PO BID #30 capsule HYDROcodone/Acet 7.5/325 mg [[place] 7.5-325 mg] 1 tab PO Q4H PRN #42 tablet PRN Reason: Pain Polyethylene Glycol 3350 [MiraLAX] 17 gm PO DAILY #30 powd.pack Home Medications: Ferrous Sulfate 325 mg PO BID 03/11/15 [History] Lisinopril [Zestril] 10 mg PO DAILY 05/05/15 [History] Aspirin [Lo-Dose Aspirin EC] 81 mg PO QAM 03/11/16 [History] Atorvastatin [Lipitor] 40 mg PO HS 03/11/16 [History] Insulin ASPART [Novolog Flexpen] 20 unit SQ TIDWM 03/11/16 [History] Albuterol Sulfate [Ventolin Hfa] 2 puff IH Q4H PRN 06/07/16 [History] Insulin Glargine [Lantus] 90 unit SQ BID 06/07/16 [History] Cetirizine HCl 10 mg PO DAILY 01/03/17 [History] Diltiazem CD (24hr) [Cardizem CD] 120 mg PO DAILY #30 tab 03/07/17 [Rx] Isosorbide MONOnitrate (24 HR) [Imdur] 30 mg PO DAILY #30 tab 03/07/17 [Rx] Silvasorb 1 appl TP DAILY #1 tub 03/07/17 [Rx] Metoprolol XL (24 HR) Succ [Toprol Xl] 50 mg PO BID 04/22/17 [History] Rivaroxaban [Xarelto] 15 mg PO DAILY 04/22/17 [History] Furosemide [Lasix] 40 mg PO BID 04/23/17 [History] HYDROcodone/Acet 7.5/325 mg [[place] 7.5-325 mg] 1 tab PO Q4H PRN #42 tablet 04/26 [Rx] Polyethylene Glycol 3350 [MiraLAX] 17 gm PO DAILY #30 powd.pack 04/26/17 [Rx] Doxycycline 100 mg PO BID #30 capsule 05/03/17 [Rx] Doxycycline 100 mg PO BID capsule 05/05/17 [Rx] Allergies/Adverse Reactions: 3 Allergy/AdvReac Type Severity Reaction Status Date / Time No Known Allergies Allergy Verified 01/03/17 12:41 Date of admission: 04/22/17 23:20 Primary care physician: Billie Van CNP Consults: 04/23/17 00:00 Consult to Podiatry [CONS] Routine Consulting Provider: Podiatry [facility] Reason for Consult: 51M with necrotic left 4th toe, osteomyelitis Call Completed: Yes Consult to Surgery [CONS] Routine Consulting Provider: Surgery [facility] Reason for Consult: 51M with necrotic left 4th toe, osteomyelitis Call Completed: Yes Consult to Wound Care [CONS] Routine Reason for Consult: non-healing diabetic foot ulcer on left plantar surface as well as necrotic and infected left 4th toe Call Completed: No 04/23/17 02:45 Consult to Pastoral Services [CONS] Routine Comment: 04/24/17 13:24 Consult to Physical Therapy [CONS] Routine Comment: Evaluate, develop and implement POC Reason for Consult: discharge planning Consult to Alcohol Law Enforcement Agent [CONS] Routine Reason for SW Consult: transporation issues OT [Consult to Occupational Therapy] [CONS] Routine Comment: Evaluate, develop and implement POC Reason for Consult: discharge planning Discharging clinician: Sean Best Anticipated date of discharge: 05/05/17 - Patient Status Disposition: Transfer SNF Condition: Good Functional capacity at discharge: wheelchair bound Overall status at discharge: patient is back to baseline - Discharge Instructions Instructions: Diabetic Foot Care (DC) Follow Up With: Billie Van CNP [Primary Care Provider] - Richard Lawson MD [Partnered Physician] - 05/08/17 1:30 pm (In Wound Care 2016 at 1:30pm) Additional Instructions: Daily wound care: remove packing, irrigate with normal saline. Repack calcium alginate and cover with Kerlix. Replace Mario bandage (expected for aprox 1 week) ; will eventually transition to wound vac (wound vac has been ordered and f/u in wound care for at 2:[address] Lawson). Wear Post-operative shoe when out of bed. Non-weightbearing to left lower extremity. Ambulate with walker or crutches per PT/OT eval and treat. - Diet and Activity Activity: as per physical therapy Diet: diabetic diet, low fat, low cholesterol, low salt diet Interval History: See below Hospital course: Mr. Mercedes is a 51 year old male He has a PMH of CHFpEF, CKD III, MOSES on CPAP, Afib on Xarelto, DM, CAD, Obesity He was admitted 13 days ago for management of sepsis, MSSA bacetremia, Left 4th toe necrosis secondary to MSSA infection on his diabetic ulcer Today, he is POD 11 Patient reported that he had an ulcer on the bottom of his left foot being treated in wound care clinic. He had a cast on his foot for this ulcer, but missed a couple of appointments and left the cast on longer than intended. The cast came off earlier this week per the patient. The day prior to admission he noticed his fourth toe on his left foot was purple, and he thought it was bruised. The day of admission, the foot started draining a foul-smelling purulent drainage and had black necrotic tissue as well. He also reported of fever/chills but denies any pain in his left foot In the ER at [place], he was found to have leukocytosis (WBC 17.5) and febrile; temperature of 101.3. Foot x-ray showed soft tissue gas about the fourth distal phalanx, with questionable erosive changes of the fourth metatarsal head. He was admitted to [facility] medical floor for further management and evaluation. During patients hospital stay, Gen. surgery was consulted and proceeded with urgent amputation of fourth toe as well as metatarsal head area. During surgery patient was found to have a necrotic left fourth toe in addition to osteomyelitis in the left metatarsal. As a result, the left fourth toe was amputated and the metatarsal head (osteomyelitis) was resected. Patient was continued with IV antibiotic therapy and was later transitioned to oral Levaquin Today seen at bedside,He has no new complains SNF has been recommended and he now has been cleared for discharge His sepsis resolved as he has been afebrile for >7 days, his leukocytosis is persistent and fluctuates, but patient has no peripheral stigmata of infection His repeat blood culture 05/03 is preliminary negative He was followed by surgery and will be following with Dr. Lawson as out-patient He needs at least 10 more days of doxycycline po bid His kidney function has been ay baseline and his DM is better controlled His other chronic medical conditions are stable - Time Spent with Patient Total time spent providing and/or coordinating discharge services: Greater than 30 minutes - Constitutional Vitals: Temp Pulse Resp BP Pulse Ox 98.2 F 63 17 135/69 99 05/05/17 07:31 05/05/17 07:31 05/05/17 07:31 05/05/17 07:31 05/05/17 07:31 General appearance: Present: A&O X 3, pleasant, no acute distress - Head Head exam: Present: atraumatic, normocephalic - Eye Eye exam: Present: PERRL, conjuntiva pink, sclera anicteric Pupils: Present: PERRL - Neck Neck exam general surgery: Present: supple, trachea midline. Absent: lymphadenopathy - Respiratory Respiratory exam: Present: CTAB. Absent: accessory muscle use, rales, rhonchi, wheezes - Cardiovascular Cardiovascular exam: Present: irregular rhythm, +S1, +S2. Absent: diastolic murmur, gallop, rubs, systolic murmur - GI/Abdominal GI/Abdominal exam: Present: normal bowel sounds, soft, no peritoneal signs. Absent: distended, tenderness - Extremities Exam Extremities exam: Present: warm, radial pulses palpable and symmetrical. Absent : calf tenderness, cyanotic, pedal edema Additional comments: L foot wound vac, looks clean, s/p 4th toe amputation - VTE Documentation of Mechanical Device: Intermittent pneumatic compression device
== END 2017-05-05 16:20 | DRG 710 ==
LOC: 3NENU → SUATTDRO 23:20 → 3ANU 04-24 10:06
PROVIDERS: ADMIT Internal Medicine; ATTEND Internal Medicine

== ENCOUNTER 2017-12-15 09:47 | Inpatient (IN) ==
[2017-12-15] MEDS ORDERED: Dextrose Gel 15 GM/37.5 ML TUBE PO PRN ×4 (15:15→20:26)
[2017-12-15] MEDS ORDERED: D5% in Water 1,000 ML IVC PRN ×2 (15:15→20:26)
[2017-12-15] MEDS ORDERED: *HR* Dextrose 50 % in Water (Syg) 50 ML SYRINGE IVP PRN ×2 (15:15→20:26)
[2017-12-15] MEDS ORDERED: Insulin LISPRO 300 UNITS/3 ML VIAL SQ SCH ×2 (16:30→21:00)
--- NOTE | 2017-12-15 16:33 | Podiatry History & Physical ---
History of Present Illness HPI: Mr. Mercedes is a 52 year old male who was sent to [facility] from [facility] for evaluation of a right foot ulceration. Patient states he had onset of fever with right foot pain and diarrhea on December 11. He had 2 episodes of vomiting the morning of December 13 and decided to seek medical attention since he did not feel improved. he was seen and evaluated per alda, started on IV vancomycin and MRI was obtain showing suspicion of gas within the tissue. patient was then transferred to [facility], report was provided to however is alterations supervisor and will be taking patient. He has had right fourth toe and adjacent metatarsal head amputation approximately 2005 for osteomyelitis which was cured by the surgical resection. He has had left fourth toe amputation. has chronic left foot ulceration, shallow, has been evaluated per podiatry in past. He has seen wound clinic physician recently for a new ulcer on the left plantar metatarsal area. He has DJD and gout. He had right hip fracture with replacement 2005. Previous hx of CA. Medical hx of DM and CKD stage III, CAD, CHF, HTN and NSTEMI. Patient denies any tobacco or drug use. Patient denies any chest pain or SOB at this time. Sitting up on side of bed. In no acute distress. Denies any muscle pain or weakness. Patient is neuropathic , denies any pain to foot at this time. Patient is tachycardic on admission 105-116 and temp 99.9 Internal medicine has been consulted for medical management Admit wbc 26.8 Patient states he is on xarelto All Systems Reviewed: The remainder of the systems were reviewed and are negative - Constitutional Constitutional: as per HPI - Cardiovascular Cardiovascular: as per HPI - Respiratory Respiratory: as per HPI - Musculoskeletal Musculoskeletal: as per HPI Past Med Surg Social Fam HX - Past Medical History Medical history: arthritis, atrial fibrillation, CHF, COPD, coronary artery disease, CVA, diabetes, GERD, hyperlipidemia, hypertension, myocardial infarction, renal disease Psychiatric history: anxiety, depression - Past Surgical History Surgical History: cataract, coronary bypass (CABG), orthopedic, other, other - Social History Smoking Status: Former smoker Smokeless Tobacco Status: Yes Alcohol use: none Drug use: none - Family History Mother Family Member Ethnicity: Non- Living Status: Hx Family Cardiac Disorders: Yes (HD, HTN, CHF) Hx Family Respiratory Disorders: Yes (COPD) Father Family Member Ethnicity: Non- Living Status: Hx Family Cardiac Disorders: Yes (HD, HTN, MN) Brother Family Member Ethnicity: Non- Living Status: Still Living Hx Family Cardiac Disorders: Yes (HD) Hx Family Respiratory Disorders: Yes (COPD) Sister Family Member Ethnicity: Non- Living Status: Still Living Hx Family Endocrine Disorder: Yes (T2DM) Medications and Allergies Aspirin [Lo-Dose Aspirin EC] 81 mg PO QAM 03/11/16 [History] Atorvastatin [Lipitor] 40 mg PO HS 03/11/16 [History] Insulin ASPART [Novolog Flexpen] 20 unit SQ TIDWM 03/11/16 [History] Albuterol Sulfate [Ventolin Hfa] 2 puff IH Q4H PRN 06/07/16 [History] Diltiazem CD (24hr) [Cardizem CD] 120 mg PO DAILY #30 tab 03/07/17 [Rx] Isosorbide MONOnitrate (24 HR) [Imdur] 30 mg PO DAILY #30 tab 03/07/17 [Rx] Rivaroxaban [Xarelto] 15 mg PO DAILY 04/22/17 [History] Polyethylene Glycol 3350 [MiraLAX] 17 gm PO DAILY #30 powd.pack 04/26/17 [Rx] Cetirizine HCl [Zyrtec] 10 mg PO DAILY 05/08/17 [History] Ascorbic Acid [Vitamin C] 500 mg PO 0630 #30 tablet 11/03/17 [Rx] Ferrous Sulfate 325 mg PO 0630 #30 tablet 11/03/17 [Rx] Furosemide [Lasix] 40 mg PO DAILY #0 11/03/17 [Rx] Insulin Glargine,Hum.rec.anlog [Basaglar Kwikpen U-100] 20 unit SQ QAM #0 [Rx] 3 Allergy/AdvReac Type Severity Reaction Status Date / Time No Known Allergies Allergy Verified 10/30/17 14:16 Physical Exam - Constitutional Vitals: Temp Pulse Resp BP Pulse Ox 98.4 F 116 18 169/78 97 12/15/17 14:49 12/15/17 14:49 12/15/17 14:49 12/15/17 14:49 12/15/17 14:49 General appearance: average body habitus, no acute distress, obese - Head Head exam: Present: atraumatic, normal inspection - Eye Eye exam: Present: normal appearance, PERRL - ENT ENT exam: Present: mucous membranes moist - Neck Neck exam: Present: full ROM - Cardiovascular Cardiovascular exam: Present: +S1, +S2, tachycardia - GI/Abdominal GI/Abdominal exam: Present: normal bowel sounds, soft - Extremities Exam Extremities exam: Present: full ROM, normal capillary refill, normal inspection - Expanded Lower Extremities Exam Foot/Toe exam: Present: amputation, erythema, full ROM, swelling, tenderness at base of 5th metatarsal 1 - large ulceration noted with associated cindy wound edema and erythema. ulceration noted to lateral aspect of foot extending to plantar aspect of foot. [id number] with 4cm depth, large amount of surrounding edema and erythema as well as warmth. There is yellow and purple discoloration surrounding wound associated with purulent drainage surrounding and below wound. Erythema extends to mid foot on plantar and dorsal aspect of foot consistent with cellulitis. Purulent drainage noted. no odor. 2 - amputation 3 - small ulceration 0.2cmx0.2cmx0.1cm- clean, healthy graunation tissue. 4 - amputation - Neurological Exam Neurological exam: Present: alert, oriented X3 - Psychiatric Psychiatric exam: Present: normal affect - Skin Skin exam: Present: dry, normal color, warm - Vascular Capillary Refill: less than 3 seconds Lower Extremity Vascular: decreased fine/light touch - Ankle & Foot Appearance ankle: swelling, erythema (consistent with infection of right foot) Results - Labs Labs: All other labs normal. Assessment and Plan (1) Diabetic foot ulcer associated with diabetes mellitus due to underlying condition Current visit: No Status: Acute Large diabetic ulceration, grade 3 with abscess formation and possible gas within the tissue PLAN: Patient will be NPO and prepped for surgery today with Planned I&D of wound- will likely need serial debridements Internal medicine consulted for medical management discussed surgical procedure and informed consent was obtained at bedside Full assessment complete as documented Patient denies any issues with previous anesthesia Intra op cultures will be obtained Continue to monitor Tight glucose control to limit complications Qualifiers: Diabetic foot ulcer location: midfoot Laterality: left Non-pressure ulcer stage: with necrosis of bone Qualified Code(s): E08.621 - Diabetes mellitus due to underlying condition with foot ulcer; L97.424 - Non-pressure chronic ulcer of left heel and midfoot with necrosis of bone; L97.424 - Non- pressure chronic ulcer of left heel and midfoot with necrosis of bone; L97.424 - Non-pressure chronic ulcer of left heel and midfoot with necrosis of bone; L97.424 - Non-pressure chronic ulcer of left heel and midfoot with necrosis of bone
--- NOTE | 2017-12-15 17:43 | Podiatry Progress Note ---
Date of Encounter: 12/15/17 Time of Encounter: 04:45 - Assessment and Plan (1) Gas gangrene of foot Current Visit: Yes Status: Acute see below, being emergently taken to the OR. (2) Abscess of right foot Current Visit: Yes Status: Acute I had a thorough review with the patient regarding his condition, my findings, his MRI which showed the soft tissue gas and possible bone infection. We discussed the infection of his foot and my recommendations for treatment. We discussed IV antibiotics and surgical intervention which would include an incision and drainage and debridement of all nonviable tissue and likely partial right foot amputation. I discussed with the patient that this is a staged procedure and he will require more surgery in the future. We also discussed that he is high risk for limb loss with this severe diabetic foot infection and he is being emergently taken to the operating room. He said he understands that he could lose part of his foot or his leg. Nature procedure risks versus benefits potential, case and consequences discussed with patient at length including but not limited to persistent infection, wound healing problems, nerve damage, bleeding, swelling, numbness, tingling, pain, loss of functionality, heart attack, , blood clot, pulmonary embolism, pneumonia, need for further surgery etc. All of his questions were answered and informed consent was signed. call center representative to the OR. Subjective Interval history: 52-year-old diabetic male who was admitted to [facility] on Monday with a diabetic foot infection and found last night on MRI to have right foot soft tissue gas with abscess and possible osteomyelitis of the fifth toe proximal phalanx. Patient stated that on Monday his right foot began to develop swelling and redness. He says he was not having any problems with the right foot prior to this. He is known to me from having a stable left foot wound and seeing me in the wound care center. He was given IV antibiotics at [facility] he was transferred here today after Dr. Luis had been contacted. I saw the patient upon learning that he was in the hospital and he is being brought to the OR for emergent incision and drainage and partial foot amputation. Objective - Vital Signs Vital Signs: Vital Signs Temp Pulse Resp BP Pulse Ox 12/15/17 14:49 98.4 F 116 18 169/78 97 Intake and Output 12/15/17 12/15/17 12/15/17 07:59 15:59 23:59 Other: # Voids 1 Weight 130.3 kg Blood Glucose* 362 Patient Weight 12/15/17 23:59 Weight 130.3 kg - Exam Exam: Well-developed obese male in no acute distress Edematous right foot with fluctuance around the fifth MTP joint and some purulence expressed from a small opening in the plantar lateral aspect of the foot. There is significant erythema. Diminished protective sensation. Area of necrosis plantar lateral foot at the opening were purulent drainage exiting. stable noninfected left foot wound. Consult Discharge Plan - Plan Referrals: Marissa Pitts CNP [Primary Care Provider] -
--- NOTE | 2017-12-15 17:46 | Anesthesia Evaluation PreOp ---
Date of Encounter: 12/15/17 Time of Encounter: 17:37 - Past History Planned Operation: R foot I and D, poss amp Cardiac History: HTN, Hyperlipidemia, Arrhythmia (afib), Cardiac Surgery (CABG x 3), Cardiac Stent Pulmonary History: COPD, MOSES Dx (on cpap) COOK BOAT History: CVA Other Medical History: Renal (CKD stage 3), Diabetes Type II Anesthesia History: No Prior Anesthetic Complications, Past Anesthesia (CABG x 4 ) Alcohol Use: none Drug use: none Medications and Allergies Aspirin [Lo-Dose Aspirin EC] 81 mg PO QAM 03/11/16 [History] Atorvastatin [Lipitor] 40 mg PO HS 03/11/16 [History] Insulin ASPART [Novolog Flexpen] 20 unit SQ TIDWM 03/11/16 [History] Albuterol Sulfate [Ventolin Hfa] 2 puff IH Q4H PRN 06/07/16 [History] Diltiazem CD (24hr) [Cardizem CD] 120 mg PO DAILY #30 tab 03/07/17 [Rx] Isosorbide MONOnitrate (24 HR) [Imdur] 30 mg PO DAILY #30 tab 03/07/17 [Rx] Rivaroxaban [Xarelto] 15 mg PO DAILY 04/22/17 [History] Polyethylene Glycol 3350 [MiraLAX] 17 gm PO DAILY #30 powd.pack 04/26/17 [Rx] Cetirizine HCl [Zyrtec] 10 mg PO DAILY 05/08/17 [History] Ascorbic Acid [Vitamin C] 500 mg PO 0630 #30 tablet 11/03/17 [Rx] Ferrous Sulfate 325 mg PO 0630 #30 tablet 11/03/17 [Rx] Furosemide [Lasix] 40 mg PO DAILY #0 11/03/17 [Rx] Insulin Glargine,Hum.rec.anlog [Basaglar Kwikpen U-100] 20 unit SQ QAM #0 [Rx] 3 Allergy/AdvReac Type Severity Reaction Status Date / Time No Known Allergies Allergy Verified 10/30/17 14:16 - Meds/Allergy Pre-op Review Medications Reviewed: Yes Allergies Reviewed: Yes Beta Blockers on Current Med List: No Anesthesia Results - Labs Laboratory Tests 11/01/17 12/15/17 12/15/17 05:22 06:03 06:03 WBC 16.4 H Hgb 11.9 L Hct 38.0 Plt Count 199 Sodium 129 L Potassium 4.0 Chloride 100 Carbon Dioxide 20 L BUN 28 H Creatinine 1.60 H Est GFR ( Amer) 55 L Est GFR (Non-Af Amer) 45 L BUN/Creatinine Ratio 18 Glucose 293 H POC Glucose Hemoglobin A1c 12.7 H 12/15/17 15:43 WBC Hgb Hct Plt Count Sodium Potassium Chloride Carbon Dioxide BUN Creatinine Est GFR ( Amer) Est GFR (Non-Af Amer) BUN/Creatinine Ratio Glucose POC Glucose 362 H Hemoglobin A1c - Imaging EKG: report reviewed (ATRIAL FIBRILLATION MODERATE INTRAVENTRICULAR CONDUCTION DELAY NONSPECIFIC ST & T-WAVE ABNORMALITY Electronically Signed On 11-27-2017 16: 44:37 EDT by Sabrina Bro) Additional studies: Impressions: Technically challenging study. LV systolic function appears normal with use of Definity, EF 60-65%. Indeterminate left ventricular diastolic function. RV may be normal in size. Function is not well evaluated. No significant valvular dysfunction. No pulmonary hypertension. Anesthesia Exam Vital Signs/O2 Sat, Most Current Temp Pulse Resp BP Pulse Ox 98.4 F 116 18 169/78 97 12/15/17 14:49 12/15/17 14:49 12/15/17 14:49 12/15/17 14:49 12/15/17 17:47 Height: 1.75m Weight: 130kg NPO (# of Hours): ate at noon today - HEENT Pupil (Motor): Pupils equal, EOMI Mallampati: III Teeth: Poor dentition Oral Opening: Greater than 3 - COOK BOAT LOC: Oriented COOK BOAT Motor: Normal RUE, Normal LUE, Normal RLE, Normal LLE, Normal Face COOK BOAT Sensory: Normal: RUE, LUE, RLE, LLE, Face - Cardiac Rhythm: Irregular - Pulmonary Breath Sounds: bilateral Clear Respiratory Effort: Symmetrical Anesthesia Assess/Plan ASA Score: 3, E Modified Shiela Scale for Level of Consciousness: Cooperative, oriented, and tranquil Anesthetic Plan: General (RSI) Monitoring Plan: Standard Monitors Recovery Plan: PACU
[2017-12-15] MEDS ORDERED: Lidocaine 1% 20 ML MDV ONE (18:02)
[2017-12-15] MEDS ORDERED: Bupivacaine-MPF 0.25% 10 ML VIAL ONE (18:02)
[2017-12-15] MEDS ORDERED: Clindamycin 600 MG/50 ML 600 MG/50 ML IV.SOLN IVPB ONE (18:06)
[2017-12-15] MEDS ORDERED: Vancomycin 1,000 MG VIAL ONE (18:36)
[2017-12-15] MEDS ORDERED: *HR* Propofol 200 MG/20 ML VIAL IVP ONE (18:54)
[2017-12-15] MEDS ORDERED: *HR* Midazolam HCl 2 MG/2 ML VIAL ONE (18:54)
[2017-12-15] MEDS ORDERED: *HR* FentaNYL (PF) 100 MCG/2 ML VIAL ONE ×2 (18:54)
[2017-12-15] MEDS ORDERED: Lidocaine -MPF 2% 2 ML VIAL ONE (18:55)
[2017-12-15] MEDS ORDERED: *HR* Succinylcholine 200 MG/10 ML VIAL IVP ONE (18:55)
[2017-12-15] MEDS ORDERED: Ondansetron 4 MG/2 ML VIAL ONE (18:55)
[2017-12-15] MEDS ORDERED: Dexamethasone 4 MG/ML VIAL ONE (18:55)
--- NOTE | 2017-12-15 18:57 | Operative Note ---
Date of procedure: 12/15/17 Pre-op diagnosis: gas gangrene right foot Post-op diagnosis: same Procedure: incision and drainage, open 5th ray amputation Implants: none Complications: none Anesthesia: VIANEY Surgeon: Evin Cantu Was there an faculty research assistant present: No Estimated blood loss (cc): 20 Specimen: right 5th toe bone, culture (aerobic, anaerobic, gram stain) right foot tis Condition: stable Disposition: PACU Procedure in Detail: Indications: 52-year-old diabetic male with gas gangrene of the right foot transferred from [facility] brought emergently to the operating room for an incision and drainage and partial foot amputation after having the nature of the procedure, risks first benefits potential complications and consequences of his condition and surgery explained at length. Was explained to the patient this is a staged procedure and he will require more surgery in the future. No guarantees were made as to the outcome of any procedure. Patient understood that he is high risk for partial foot/limb loss. Patient was brought into the operating room after signing the informed consent placed on the operating room table in the supine position. A high calf tourniquet was applied but not inflated during the entire procedure. The right lower extremity was scrubbed prepped and draped in the usual sterile fashion and the following procedures began. Incision and drainage right foot. Attention was directed to the plantar lateral aspect of the patient's right foot where a #15 blade was used to make an incision the plantar lateral aspect of the foot which had some purulent drainage. Devitalized tissue was noted to be present within the wound. There was purulent drainage coming from the fifth metatarsal phalangeal joint. The devitalized tissue and purulent drainage which tracked laterally. The area was probed and explored. Devitalized tissue was excised from the plantar lateral aspect of the right foot. There was an area of swelling on the dorsal aspect of the foot over the fourth metatarsal which was incised. The area was probed and explored. No purulent drainage was expressed and the site did not communicate with the plantar foot. The site was felt to be adequate for closure and 0 Prolene was used to reapproximate the skin edges. Devitalized tissue from the plantar lateral aspect of the foot was sent to microbiology for aerobic, anaerobic and Gram stain. Open fifth ray amputation right foot. With purulent drainage from the metatarsophalangeal joint the decision was made to proceed with a partial fifth ray amputation and the sagittal saw was used to resect the distal aspect of the fifth metatarsal and part of the fifth ray was excised and sent to pathology. Devitalized tissue surrounding the fifth ray was excisionally debrided with a # 15 blade until the devitalized tissue was felt to have been adequately resected. The pulse lavage with vancomycin was utilized to irrigate the surgical site. Upon reinspection no further purulent drainage could be expressed. All devitalized tissue was felt to have been adequately debrided. The distal aspect of the remaining fifth metatarsal did have bleeding bone. The Bovie was utilized to cauterize any bleeding. Adequate hemostasis was felt to be present. Postoperative dressing included iodoform half-inch packing, 4 x 4 gauze, abdominal pad, Kerlix and a loosely applied Mario wrap. The patient tolerated the anesthesia and the procedure well and was escorted the recovery room with vital signs stable and vascular status intact to the remaining digits of the right foot. Patient will be monitored in the PACU and sent back to the floor where he will continue IV antibiotics.
[2017-12-15] MEDS ORDERED: *HR* OxyCODONE Immed Rel 5 MG TABLET PO PRN (19:09)
[2017-12-15] MEDS ORDERED: *HR* Labetalol 20 MG/4 ML SYRINGE IVP PRN (19:09)
[2017-12-15] MEDS ORDERED: Naloxone 0.4 MG/ML INJ IVP PRN (19:09)
[2017-12-15] MEDS ORDERED: *HR* Meperidine 25 MG/ML SYRINGE IVP PRN (19:09)
[2017-12-15] MEDS ORDERED: *HR* Promethazine 25 MG/ML VIAL IVP PRN (19:09)
[2017-12-15] MEDS ORDERED: Ondansetron 4 MG/2 ML VIAL IVP ONE (19:09)
[2017-12-15] MEDS ORDERED: Ringers Solution, Lactated 1,000 ML IVC SCH (19:15)
[2017-12-15] MEDS ORDERED: *HR* Labetalol 100 MG/20 ML MDV IVP PRN (19:30)
--- NOTE | 2017-12-15 19:39 | Anesthesia Evaluation Post Op ---
Date of Encounter: 12/15/17 Time of Encounter: 19:36 - Vital Signs Vital Signs: Vital Signs/O2 Sat, Most Current Temp Pulse Resp BP Pulse Ox 99.7 F H 105 20 163/88 95 12/15/17 19:31 12/15/17 19:31 12/15/17 19:31 12/15/17 19:31 12/15/17 19:31 Notes: Patient's vital signs have been reviewed. Patient is stable postoperatively and has adequately recovered from anesthesia. Patient is determined to have stable airway patency and respiratory function including respiratory rate and oxygen saturation. Patient has a stable heart rate, blood pressure and adequate hydration. Patients mental status is acceptable. Patients temperature is appropriate. Pain and nausea are adequately controlled. - Discharge PostOp Status: Transfer Patient to floor
[2017-12-15] MEDS: Insulin LISPRO 300 UNITS/3 ML VIAL SQ SCH (22:58)
[2017-12-15] MEDS: Piperacillin/Tazobactam 3.375 GM in 0.9 % Sodium Chloride Mini Bag 100 ML IVPB SCH (23:46)
[2017-12-15] MEDS: Diltiazem CD (24hr) 120 MG CAPSULE PO SCH (23:46)
--- NOTE | 2017-12-16 02:05 | Internal Medicine Consult Note ---
Date of Encounter: 12/16/17 Time of Encounter: 01:30 - Assessment and plan (1) Abscess of right foot Current Visit: Yes Status: Acute Assessment and plan: continue management as per primary team (2) Gas gangrene of foot Current Visit: Yes Status: Acute Assessment and plan: continue management as per primary team (3) Atrial fibrillation Current Visit: No Status: Chronic Assessment and plan: Will continue home dose of Cardizem If rate continues to remain poorly controlled, consider increasing Cardizem dose Anticoagulated with Xarelto continue tele monitoring Qualifiers: Atrial fibrillation type: paroxysmal Qualified Code(s): I48.0 - Paroxysmal atrial fibrillation (4) CAD (coronary artery disease) Current Visit: No Status: Chronic Assessment and plan: no signs of angina present at this time continue home meds Qualifiers: Coronary Disease-Associated Artery/Lesion type: [place] artery [place] vs. transplanted heart: [place] heart Associated angina: without angina Qualified Code(s): I25.10 - Atherosclerotic heart disease of [place] coronary artery without angina pectoris (5) Chronic kidney disease, stage III (moderate) Current Visit: No Status: Chronic Assessment and plan: renal function at baseline continue to monitor (6) Hypertension Current Visit: No Status: Chronic Assessment and plan: BP within acceptable range last BP checked by me during my evaluation: 146/84 continue home meds closely monitor BP Qualifiers: Hypertension type: essential hypertension Qualified Code(s): I10 - Essential (primary) hypertension (7) Type 2 diabetes mellitus Current Visit: No Status: Chronic Assessment and plan: continue home dose of insulin SS insulin algorithm monitor FS and BG ADA diet Qualifiers: 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: with group home use Diabetes mellitus complication status: with skin complications Diabetes mellitus complication detail: with foot ulcer Qualified Code(s): E11.621 - Type 2 diabetes mellitus with foot ulcer; L97.509 - Non-pressure chronic ulcer of other part of unspecified foot with unspecified severity; Z79.4 - exterminator helper termite ( current) use of insulin (8) Morbid obesity Current Visit: No Status: Chronic - Time Spent With Patient Total time spent is greater than 50% in coordination of care (as documented) at patient's floor/unit and/or counseling patient: Internal Medicine - CN: HPI - Data of Consult Patient: new to practice Requesting Physician: Volodymyr Luis, - Consult Narrative Reason for consult: med management of chronic co-morbidities History of present illness: Mr. Mercedes is a 52 year old male with PMH of DM, Afib on Xarelto, HTN, HLD, CAD who is admitted to podiatry for management of gas gangrene and abscess of right foot. Medicine was consulted for assistance with med management of his chronic co-morbidities. Patient seen and examined at bedside. Resting in bed and is s/p incision and drainage and 5th toe amputation on 12/15/17. Pt tolerated the procedure well and reports of pain being adequately controlled. He is noted to be tachycardic with HR sustaining in 100s. He received his home dose of Cardizem however remained tachycardic, due to which one time dose of Cardizem IV was given. He denies any chest pain, palpitations, sob, fever, or chills at this time. Pt's home dose of Xarelto was restarted after obtaining clearance from podiatry. Past Med Surg Social Fam HX - Past Medical History Medical history: arthritis, atrial fibrillation, CHF, COPD, coronary artery disease, CVA, diabetes, GERD, hyperlipidemia, hypertension, myocardial infarction, renal disease Psychiatric history: anxiety, depression - Past Surgical History Surgical History: cataract, coronary bypass (CABG), orthopedic, other, other - Social History Smoking Status: Former smoker Smokeless Tobacco Status: Yes Alcohol use: none Drug use: none - Family History Mother Family Member Ethnicity: Non- Living Status: Hx Family Cardiac Disorders: Yes (HD, HTN, CHF) Hx Family Respiratory Disorders: Yes (COPD) Father Family Member Ethnicity: Non- Living Status: Hx Family Cardiac Disorders: Yes (HD, HTN, MD) Brother Family Member Ethnicity: Non- Living Status: Still Living Hx Family Cardiac Disorders: Yes (HD) Hx Family Respiratory Disorders: Yes (COPD) Sister Family Member Ethnicity: Non- Living Status: Still Living Hx Family Endocrine Disorder: Yes (T2DM) - Constitutional Constitutional: as per [facility] Internal Medicine - CN: Meds Aspirin [Lo-Dose Aspirin EC] 81 mg PO QAM 03/11/16 [History] Atorvastatin [Lipitor] 40 mg PO HS 03/11/16 [History] Insulin ASPART [Novolog Flexpen] 20 unit SQ TIDWM 03/11/16 [History] Albuterol Sulfate [Ventolin Hfa] 2 puff IH Q4H PRN 06/07/16 [History] Diltiazem CD (24hr) [Cardizem CD] 120 mg PO DAILY #30 tab 03/07/17 [Rx] Isosorbide MONOnitrate (24 HR) [Imdur] 30 mg PO DAILY #30 tab 03/07/17 [Rx] Rivaroxaban [Xarelto] 15 mg PO DAILY 04/22/17 [History] Cetirizine HCl [Zyrtec] 10 mg PO DAILY 05/08/17 [History] Ascorbic Acid [Vitamin C] 500 mg PO 0630 #30 tablet 11/03/17 [Rx] Ferrous Sulfate 325 mg PO 0630 #30 tablet 11/03/17 [Rx] Furosemide [Lasix] 40 mg PO DAILY #0 11/03/17 [Rx] Insulin Glargine,Hum.rec.anlog [Basaglar Kwikpen U-100] 20 unit SQ QAM #0 [Rx] Insulin Glargine [Lantus] 70 unit SQ HS 12/15/17 [History] Polyethylene Glycol 3350 [MiraLAX] 17 gm PO DAILY PRN 12/15/17 [History] 3 Allergy/AdvReac Type Severity Reaction Status Date / Time No Known Allergies Allergy Verified 10/30/17 14:16 Internal Medicine - CN: Exam - Constitutional Vitals: Temp Pulse Resp BP Pulse Ox 97.8 F 104 18 151/78 96 12/15/17 23:40 12/15/17 23:40 12/15/17 23:40 12/15/17 23:40 12/15/17 23:40 General appearance IM: Present: A&O X 3, morbidly obese, no acute distress, answers questions appropriately - Eye Eye exam: Present: EOMI, normal appearance - Respiratory Respiratory exam: Present: CTAB. Absent: respiratory distress, wheezes - Cardiovascular Cardiovascular exam IM: Present: irregular rhythm, +S1, +S2, tachycardia - GI/Abdominal GI/Abdominal exam IM: Present: normal bowel sounds, soft, no peritoneal signs. Absent: distended, tenderness - Extremities Exam Extremities exam IM: Present: warm, radial pulses palpable and symmetrical ( dressing intact in b/l feet ). Absent: calf tenderness Consult Discharge Plan - Plan Referrals: Marissa Pitts CNP [Primary Care Provider] -
[2017-12-16 04:57] LABS: Basophils % 0.1 %; Hematocrit 32.2 % (37.5-50.1); Hemoglobin 10.1 g/dL (12.9-16.9); Immature Granulocytes % 0.5 % (0-4); Lymphocytes # 0.4 K/mcL (0.6-4.6); Lymphocytes % 3.2 %; Mean Corpuscular HGB Conc 31.4 g/dL (31.6-35.5); Mean Corpuscular Hemoglobin 24.5 pg (28.0-33.3); Mean Platelet Volume 10.1 fL (9.4-12.4); Monocytes # 0.3 K/mcL (0.0-1.3); Monocytes % 2.1 %; Neutrophils # 12.2 K/mcL (1.6-8.9); Platelet Count 199 K/mcL (140-400); Red Blood Count 4.13 M/mcL (4.19-5.50); Red Cell Distribution Width 15.3 % (11.5-14.5); Segmented Neutrophils % 94.1 %
[2017-12-16 05:27] LABS: Calcium 8.8 mg/dL (8.6-10.3); Magnesium 2.3 mg/dL (1.6-2.6); Phosphorous 3.4 mg/dL (2.7-4.5); Potassium 5.2 mEq/L (3.5-5.1)
[2017-12-16] MEDS: Ascorbic Acid 500 MG TABLET PO SCH (05:34)
[2017-12-16] MEDS ORDERED: NON-FORMULARY MEDICATION 1 EACH EACH (Insulin Aspart [Novolog Flexpen] 20 UNIT) SQ SCH (08:00)
[2017-12-16] MEDS: Insulin LISPRO 300 UNITS/3 ML VIAL SQ SCH ×4 (08:53→22:30)
[2017-12-16] MEDS: Piperacillin/Tazobactam 3.375 GM in 0.9 % Sodium Chloride Mini Bag 100 ML IVPB SCH ×2 (08:54→16:43)
[2017-12-16] MEDS: Isosorbide MONOnitrate (24 HR) 30 MG TAB.ER.24H PO SCH (08:54)
[2017-12-16] MEDS: Aspirin Enteric Coated 81 MG Tablet PO SCH (08:55)
[2017-12-16] MEDS: Loratadine 10 MG TABLET PO SCH (08:55)
[2017-12-16] MEDS: Insulin DETEMIR 100 UNIT/ML X5UNITS SQ SCH (08:55)
[2017-12-16] MEDS: Furosemide 40 MG TABLET PO SCH (08:55)
[2017-12-16] MEDS: *HR* Rivaroxaban 15 MG TABLET PO SCH (08:55)
[2017-12-16] MEDS: Diltiazem CD (24hr) 120 MG CAPSULE PO SCH (08:55)
[2017-12-16] MEDS ORDERED: NON-FORMULARY MEDICATION 1 EACH EACH (Insulin Glargine,Hum.Rec.Anlog [Basaglar Kwikpen U-1 SQ SCH (09:00)
--- NOTE | 2017-12-16 10:44 | Podiatry Progress Note ---
Date of Encounter: 12/16/17 Time of Encounter: 10:00 - Assessment and Plan (1) Gas gangrene of foot Current Visit: Yes Status: Acute s/p I&D with partial right 5th ray amp discussed surgical procedure and course of recovery with patient flush and pack surgical site right foot, done today. c/w IV antibiotics and de-escalate as cultures return. monitor creatinine. c/w elevation. f/u path and intra-operative cultures (aerobic & anaerobic). f/u R foot xray okay to continue xarelto (2) Abscess of right foot Current Visit: Yes Status: Acute see above Subjective Interval history: s/p open partial 5th ray amputation and I&D right foot. denies feeling like he experienced a fever, chills, nausea, vomiting, sob, chest pain. no complaint of pain. Objective - Vital Signs Vital Signs: Vital Signs Temp Pulse Resp BP Pulse Ox 12/16/17 07:42 97.6 F 86 17 156/91 97 12/16/17 07:30 97 12/16/17 03:55 98.3 F 79 14 135/88 96 12/16/17 02:21 97.8 F 104 20 164/97 97 12/15/17 23:40 97.8 F 104 18 151/78 96 12/15/17 22:50 98 F 104 20 159/78 96 12/15/17 21:41 97.6 F 106 20 139/98 95 12/15/17 20:50 98.2 F 107 14 156/72 95 12/15/17 20:23 98.2 F 106 18 168/85 95 12/15/17 19:53 99.6 F 106 18 169/90 96 12/15/17 19:41 99.7 F H 105 20 158/86 94 12/15/17 19:31 99.7 F H 105 20 163/88 95 12/15/17 19:21 105 20 166/86 96 12/15/17 19:11 105 20 181/91 96 12/15/17 19:01 98.4 F 104 20 195/100 100 12/15/17 17:47 97 12/15/17 14:49 98.4 F 116 18 169/78 97 Intake and Output 12/15/17 12/16/17 12/16/17 23:59 07:59 15:59 Intake Total 250 / 250 600 / 600 Output Total 520 / 520 950 / 950 Balance -270 / -270 -350 / -350 Intake: IV Fluids 50 / 50 600 / 600 Cleocin Premix 600 MG/50 ML 600 50 / 50 mg In 50 ml @ 50 mls/hr IVPB ONCE ONE Rx#:[id number] Zosyn 3.375 GM In 0.9 % Sodium 100 / 100 Chloride (Mini-Bag +) 100 ML @ 25 mls/hr IVPB Q8HR [facility] Rx#: [id number] Vancocin 2,000 MG In 0.9 % 500 / 500 Sodium Chloride 500 ML @ 250 mls/hr IVPB Q24H [facility] Rx#: [id number] Oral 200 / 200 Output: Urine 500 / 500 950 / 950 Estimated Blood Loss 20 Other: # Voids 1 Blood Glucose* 327 390 - Exam Exam: no purulence expressed, no fluctuctuance. decreased erythema. lateral foot wound approx [id number]. absent sensation. 3rd digit adjacent to amp site ( patient had previous 4th toe amputation) is warm to touch. no cyanosis. adequate hemostasis. there is no active bleeding or ooze. no strikethrough on bandage. left foot stable wound fullthickness. - Lab Result Diagrams: 12/16/17 03:42 12/16/17 03:42 Labs: Abnormal lab results WBC 13.0 K/mcL (4.3-11.1) H 12/16/17 03:42 RBC 4.13 M/mcL (4.19-5.50) L 12/16/17 03:42 Hgb 10.1 g/dL (12.9-16.9) L D 12/16/17 03:42 Hct 32.2 % (37.5-50.1) L 12/16/17 03:42 MCV 78.0 fL (83.0-100.0) L 12/16/17 03:42 MCH 24.5 pg (28.0-33.3) L 12/16/17 03:42 MCHC 31.4 g/dL (31.6-35.5) L 12/16/17 03:42 RDW 15.3 % (11.5-14.5) H 12/16/17 03:42 Neutrophils # 12.2 K/mcL (1.6-8.9) H 12/16/17 03:42 Lymphocytes # 0.4 K/mcL (0.6-4.6) L 12/16/17 03:42 Sodium 129 mEq/L (136-145) L 12/16/17 03:42 Potassium 5.2 mEq/L (3.5-5.1) H D 12/16/17 03:42 Carbon Dioxide 18 mEq/L (23-29) L 12/16/17 03:42 BUN 32 mg/dL (6-20) H 12/16/17 03:42 Creatinine 1.53 mg/dL (0.70-1.30) H 12/16/17 03:42 Est GFR ( Amer) 58 (> 60) L 12/16/17 03:42 Est GFR (Non-Af Amer) 48 (> 60) L 12/16/17 03:42 Glucose 471 mg/dL (70-105) H 12/16/17 03:42 POC Glucose 390 mg/dL (70-99) H 12/16/17 07:49 Consult Discharge Plan - Plan Referrals: Marissa Pitts, DIE DRAWING CHECKER [Primary Care Provider] -
[2017-12-16] MEDS ORDERED: NON-FORMULARY MEDICATION 1 EACH EACH (Insulin Glargine [Lantus] 70 UNIT) SQ SCH (21:00)
[2017-12-16] MEDS ORDERED: Insulin DETEMIR 100 UNIT/ML X5UNITS SQ SCH (21:00)
[2017-12-17] MEDS: Piperacillin/Tazobactam 3.375 GM in 0.9 % Sodium Chloride Mini Bag 100 ML IVPB SCH ×3 (02:49→19:42)
[2017-12-17] MEDS: Ascorbic Acid 500 MG TABLET PO SCH (05:05)
[2017-12-17] MEDS: Insulin LISPRO 300 UNITS/3 ML VIAL SQ SCH ×4 (08:51→19:46)
[2017-12-17] MEDS: Isosorbide MONOnitrate (24 HR) 30 MG TAB.ER.24H PO SCH (08:52)
[2017-12-17] MEDS: Insulin DETEMIR 100 UNIT/ML X5UNITS SQ SCH ×4 (08:52→19:46)
[2017-12-17] MEDS: Loratadine 10 MG TABLET PO SCH (08:52)
[2017-12-17] MEDS: Furosemide 40 MG TABLET PO SCH (08:52)
[2017-12-17] MEDS: Diltiazem CD (24hr) 120 MG CAPSULE PO SCH (08:52)
[2017-12-17] MEDS: Aspirin Enteric Coated 81 MG Tablet PO SCH (08:52)
[2017-12-17] MEDS: *HR* Rivaroxaban 15 MG TABLET PO SCH (08:52)
[2017-12-17] MEDS: Gentamicin Oint 15 GM TUBE TP SCH (08:53)
[2017-12-17] MEDS ORDERED: Acetaminophen 325 MG TABLET PO PRN (11:55)
[2017-12-17] MEDS ORDERED: Ipratropium/Albuterol Neb 3 ML IH PRN (11:56)
[2017-12-17] MEDS: *HR* OxyCODONE Immed Rel 5 MG TABLET PO PRN (12:41)
--- NOTE | 2017-12-17 13:07 | Podiatry Progress Note ---
Date of Encounter: 12/17/17 Time of Encounter: 12:00 - Assessment and Plan (1) Gas gangrene of foot Current Visit: Yes Status: Acute s/p I&D with partial right 5th ray amp plan for OR tomorrow with clean up and excisional debridement of wound and application of wound vac flush and pack surgical site right foot, done today. c/w IV antibiotics and de-escalate as cultures return. monitor creatinine. currently aerobic, anaerobic cultures sent from OR no report back c/w elevation. f/u path ID consult tomorrow discussed surgical procedure, risks vs benefits of sugical procedure and his condition NPO after breakfast okay to continue xarelto (2) Abscess of right foot Current Visit: Yes Status: Acute see above Subjective Interval history: s/p open partial 5th ray amputation and I&D right foot. denies feeling like he experienced a fever, chills, nausea, vomiting, sob, chest pain. no complaint of pain. Says he feels better. Objective - Vital Signs Vital Signs: Vital Signs Temp Pulse Resp BP Pulse Ox 12/17/17 10:00 98 F 73 16 146/78 95 12/17/17 08:00 96 12/17/17 06:38 98.4 F 67 16 149/78 96 12/17/17 04:26 98.1 F 71 18 144/79 95 12/16/17 23:06 97.7 F 110 16 167/97 96 12/16/17 19:30 97.6 F 111 17 174/100 98 12/16/17 15:06 97.6 F 64 18 148/74 96 Intake and Output 12/16/17 12/17/17 12/17/17 23:59 07:59 15:59 Intake Total 600 / 600 Output Total 1450 / 1450 400 / 400 450 / 450 Balance -1450 / -1450 200 / 200 -450 / -450 Intake: IV Fluids 600 / 600 Zosyn 3.375 GM In 0.9 % Sodium 100 / 100 Chloride (Mini-Bag +) 100 ML @ 25 mls/hr IVPB Q8H [facility] Rx#: [id number] Vancocin 2,000 MG In 0.9 % 500 / 500 Sodium Chloride 500 ML @ 250 mls/hr IVPB Q24H [facility] Rx#: [id number] Output: Urine 1450 / 1450 400 / 400 450 / 450 Other: Blood Glucose* 350 361 362 - Exam Exam: no purulence expressed, no fluctuctuance. decreased erythema. lateral foot wound approx [id number]. absent sensation. 3rd digit adjacent to amp site ( patient had previous 4th toe amputation) is warm to touch. no cyanosis. adequate hemostasis. there is no active bleeding or ooze. no strikethrough on bandage. left foot stable wound fullthickness. - Lab Result Diagrams: 12/16/17 03:42 12/16/17 03:42 Labs: Abnormal lab results WBC 13.0 K/mcL (4.3-11.1) H 12/16/17 03:42 RBC 4.13 M/mcL (4.19-5.50) L 12/16/17 03:42 Hgb 10.1 g/dL (12.9-16.9) L D 12/16/17 03:42 Hct 32.2 % (37.5-50.1) L 12/16/17 03:42 MCV 78.0 fL (83.0-100.0) L 12/16/17 03:42 MCH 24.5 pg (28.0-33.3) L 12/16/17 03:42 MCHC 31.4 g/dL (31.6-35.5) L 12/16/17 03:42 RDW 15.3 % (11.5-14.5) H 12/16/17 03:42 Neutrophils # 12.2 K/mcL (1.6-8.9) H 12/16/17 03:42 Lymphocytes # 0.4 K/mcL (0.6-4.6) L 12/16/17 03:42 ESR >= 130 mm/hr (0-10) H 12/16/17 11:30 Sodium 129 mEq/L (136-145) L 12/16/17 03:42 Potassium 5.2 mEq/L (3.5-5.1) H D 12/16/17 03:42 Carbon Dioxide 18 mEq/L (23-29) L 12/16/17 03:42 BUN 32 mg/dL (6-20) H 12/16/17 03:42 Creatinine 1.53 mg/dL (0.70-1.30) H 12/16/17 03:42 Est GFR ( Amer) 58 (> 60) L 12/16/17 03:42 Est GFR (Non-Af Amer) 48 (> 60) L 12/16/17 03:42 Glucose 471 mg/dL (70-105) H 12/16/17 03:42 POC Glucose 362 mg/dL (70-99) H 12/17/17 11:39 C-Reactive Protein 247 mg/L (Less than 10) H 12/16/17 11:30 Consult Discharge Plan - Plan Referrals: Marissa Pitts, BREAKER OILER [Primary Care Provider] -
[2017-12-17 13:54] LABS: Calcium 9.3 mg/dL (8.6-10.3); Potassium 4.2 mEq/L (3.5-5.1)
[2017-12-17 14:55] LABS: Basophils % 0.2 %; Eosinophils # 0.2 K/mcL (0.0-0.6); Eosinophils % 1.1 %; Hematocrit 31.7 % (37.5-50.1); Hemoglobin 10.4 g/dL (12.9-16.9); Immature Granulocytes % 1.7 % (0-4); Lymphocytes # 1.2 K/mcL (0.6-4.6); Lymphocytes % 6.6 %; Mean Corpuscular HGB Conc 32.8 g/dL (31.6-35.5); Mean Corpuscular Volume 76.2 fL (83.0-100.0); Mean Platelet Volume 9.8 fL (9.4-12.4); Monocytes # 1.2 K/mcL (0.0-1.3); Monocytes % 6.7 %; Neutrophils # 15.2 K/mcL (1.6-8.9); Platelet Count 291 K/mcL (140-400); Red Blood Count 4.16 M/mcL (4.19-5.50); Red Cell Distribution Width 15.6 % (11.5-14.5); Segmented Neutrophils % 83.7 %
--- NOTE | 2017-12-17 15:44 | Internal Med Progress Note ---
Date of Encounter: 12/17/17 Time of Encounter: 11:50 - Assessment and plan (1) Gas gangrene of foot Current Visit: Yes Status: Acute Assessment and plan: underwent right 5th ray partial amputation on 12/15; postop plan per primary team; pain control with PRN Oxycodone; cannot find aerobic cultures from OR; likely will need technician terminal and repeater IV antibiotics; ID consult recommended; (2) Abscess of right foot Current Visit: Yes Status: Acute (3) Morbid obesity Current Visit: Yes Status: Chronic (4) Atrial fibrillation Current Visit: Yes Status: Chronic Assessment and plan: currently rate-controlled; continue CCB and beta ana laura; anticoagulation with Xarelto; Qualifiers: Atrial fibrillation type: paroxysmal Qualified Code(s): I48.0 - Paroxysmal atrial fibrillation (5) CAD (coronary artery disease) Current Visit: Yes Status: Chronic Assessment and plan: continue ASA, statin, beta ana laura, ACEI, nitrate; Telemetry monitoring; Qualifiers: Coronary Disease-Associated Artery/Lesion type: [place] artery [place] vs. transplanted heart: [place] heart Associated angina: without angina Qualified Code(s): I25.10 - Atherosclerotic heart disease of [place] coronary artery without angina pectoris (6) Chronic kidney disease, stage III (moderate) Current Visit: Yes Status: Chronic Assessment and plan: serum creatinine at 1.88; at baseline; monitor closely; (7) Type 2 diabetes mellitus Current Visit: Yes Status: Chronic Assessment and plan: blood sugars uncontrolled; will increase Levemir and SSI; Acuucheck blood glucose monitoring with basal bolus insulin regimen; check HbA1C; diabetic diet; Qualifiers: Diabetes mellitus correction insulin use: with correction use Diabetes mellitus complication status: with skin complications Diabetes mellitus complication detail: with foot ulcer Qualified Code(s): E11.621 - Type 2 diabetes mellitus with foot ulcer; L97.509 - Non-pressure chronic ulcer of other part of unspecified foot with unspecified severity; Z79.4 - technician terminal and repeater ( current) use of insulin (8) Hypertension Current Visit: Yes Status: Chronic Assessment and plan: BP acceptable; resume home meds; Qualifiers: Hypertension type: essential hypertension Qualified Code(s): I10 - Essential (primary) hypertension - Time Spent With Patient Total time spent is greater than 50% in coordination of care (as documented) at patient's floor/unit and/or counseling patient: - Subjective Interval history: Reports some pain in right foot; no fever/chills, chest pain, dyspnea, palpitations; plan for further surgery tomorrow; blood sugars are elevated; - Constitutional Vitals: Temp Pulse Resp BP Pulse Ox 98 F 73 16 146/78 95 12/17/17 10:00 12/17/17 10:00 12/17/17 10:00 12/17/17 10:00 12/17/17 10:00 General appearance: Present: A&O X 3, morbidly obese, answers questions appropriately - Respiratory Respiratory exam: Present: CTAB. Absent: accessory muscle use, rales, rhonchi, wheezes - Cardiovascular Cardiovascular exam: Present: irregular rhythm, +S1, +S2. Absent: diastolic murmur, gallop, rubs, systolic murmur - GI/Abdominal GI/Abdominal exam: Present: normal bowel sounds, soft (obese), no peritoneal signs. Absent: distended, tenderness - Extremities Exam Extremities exam: Present: full ROM, warm, radial pulses palpable and symmetrical. Absent: calf tenderness, cyanotic, pedal edema Additional comments: right foot in surgical dressing - Neurological Exam Neurological exam: Present: CN II-XII intact, oriented X3, no focal deficits. Absent: pronater drift, facial droop, speech deficit Internal Medicine: Result - Labs CBC & Chem 7: 12/17/17 14:41 12/17/17 12:57 Labs: Short CBC 12/17/17 Range/Units 14:41 WBC 18.2 H (4.3-11.1) K/mcL Hgb 10.4 L (12.9-16.9) g/dL Hct 31.7 L (37.5-50.1) % Plt Count 291 (140-400) K/mcL Neutrophils # 15.2 H (1.6-8.9) K/mcL BMP 12/17/17 12:57 Sodium 131 L Potassium 4.2 Chloride 102 Carbon Dioxide 20 L BUN 44 H Creatinine 1.88 H Glucose 360 H Calcium 9.3 Consult Discharge Plan - Plan Referrals: Marissa Pitts, NURSE LEADER [Primary Care Provider] -
[2017-12-18 02:12] LABS: Basophils # 0.1 K/mcL (0.0-0.2); Basophils % 0.4 %; Eosinophils # 0.3 K/mcL (0.0-0.6); Hematocrit 31.1 % (37.5-50.1); Immature Granulocytes % 3.2 % (0-4); Lymphocytes # 1.5 K/mcL (0.6-4.6); Lymphocytes % 10.1 %; Mean Corpuscular HGB Conc 32.2 g/dL (31.6-35.5); Mean Corpuscular Hemoglobin 24.9 pg (28.0-33.3); Mean Corpuscular Volume 77.4 fL (83.0-100.0); Mean Platelet Volume 9.3 fL (9.4-12.4); Monocytes # 1.1 K/mcL (0.0-1.3); Monocytes % 7.2 %; Neutrophils # 11.5 K/mcL (1.6-8.9); Platelet Count 297 K/mcL (140-400); Red Blood Count 4.02 M/mcL (4.19-5.50); Red Cell Distribution Width 15.4 % (11.5-14.5); Segmented Neutrophils % 77.1 %
[2017-12-18 02:31] LABS: Calcium 8.7 mg/dL (8.6-10.3); Potassium 4.3 mEq/L (3.5-5.1)
[2017-12-18] MEDS: Piperacillin/Tazobactam 3.375 GM in 0.9 % Sodium Chloride Mini Bag 100 ML IVPB SCH ×3 (03:21→19:30)
[2017-12-18] MEDS: Ascorbic Acid 500 MG TABLET PO SCH (05:36)
[2017-12-18] MEDS: *HR* OxyCODONE Immed Rel 5 MG TABLET PO PRN (05:48)
[2017-12-18] MEDS: *HR* Rivaroxaban 15 MG TABLET PO SCH (08:11)
[2017-12-18] MEDS: Diltiazem CD (24hr) 120 MG CAPSULE PO SCH (08:11)
[2017-12-18] MEDS: Insulin LISPRO 300 UNITS/3 ML VIAL SQ SCH ×4 (08:11→21:17)
[2017-12-18] MEDS: Insulin DETEMIR 100 UNIT/ML X5UNITS SQ SCH (08:11)
[2017-12-18] MEDS: Loratadine 10 MG TABLET PO SCH (08:11)
[2017-12-18] MEDS: Aspirin Enteric Coated 81 MG Tablet PO SCH (08:11)
[2017-12-18] MEDS: Furosemide 40 MG TABLET PO SCH (08:11)
[2017-12-18] MEDS: Isosorbide MONOnitrate (24 HR) 30 MG TAB.ER.24H PO SCH (08:11)
[2017-12-18] MEDS: Gentamicin Oint 15 GM TUBE TP SCH (08:12)
[2017-12-18] MEDS ORDERED: cefTRIAXone 2,000 MG in Water for inj. (sterile) 20 ML 20 ML IVP SCH (12:00)
--- NOTE | 2017-12-18 12:51 | Podiatry Progress Note ---
Date of Encounter: 12/18/17 Time of Encounter: 11:15 - Assessment and Plan (1) Diabetic foot ulcer associated with diabetes mellitus due to underlying condition Current Visit: No Status: Acute Qualifiers: Diabetic foot ulcer location: midfoot Laterality: left Non-pressure ulcer stage: with necrosis of bone Qualified Code(s): E08.621 - Diabetes mellitus due to underlying condition with foot ulcer; L97.424 - Non-pressure chronic ulcer of left heel and midfoot with necrosis of bone (2) Type 2 diabetes mellitus Current Visit: Yes Status: Chronic Qualifiers: Diabetes mellitus care home insulin use: with terminal system operator use Diabetes mellitus complication status: with skin complications Diabetes mellitus complication detail: with foot ulcer Qualified Code(s): E11.621 - Type 2 diabetes mellitus with foot ulcer; L97.509 - Non-pressure chronic ulcer of other part of unspecified foot with unspecified severity; 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 Cantu for gas gangrene. WBC: 14.9 Inraop cultures pending. Plan: Patient made NPO after breakfast today for washout and excisional debridement of the right foot by Dr. Cantu later on today. Vancomycin and Zosyn discontinued. Ceftriaxone started. Infectious Disease consulted. Subjective Interval history: Patient is s/p incision and drainage, open 5th ray amputation, right by Dr. Cantu for gas gangrene. Patient is sitting up in bed with family at bedside. Dressings intact to both feet, no c/o pain, no c/o fever or chills. Patient is scheduled for a washout and excisional debridement of the right foot by later on today. Objective - Vital Signs Vital Signs: Vital Signs Temp Pulse Resp BP Pulse Ox 12/18/17 10:57 98.1 F 73 18 187/69 98 12/18/17 06:23 98.0 F 98 20 198/101 95 12/18/17 03:48 99.1 F 56 16 154/85 96 12/17/17 23:41 98.5 F 52 16 148/74 95 12/17/17 18:34 98.2 F 81 16 181/80 96 12/17/17 14:11 98.2 F 79 16 154/73 96 Intake and Output 12/17/17 12/18/17 12/18/17 23:59 07:59 15:59 Intake Total 100 / 100 Output Total 575 / 575 500 / 500 525 / 525 Balance -475 / -475 -500 / -500 -525 / -525 Intake: IV Fluids 100 / 100 Zosyn 3.375 GM In 0.9 % Sodium 100 / 100 Chloride (Mini-Bag +) 100 ML @ 25 mls/hr IVPB Q8H [facility] Rx#: [id number] Output: Urine 575 / 575 500 / 500 525 / 525 Other: Stool Size Small # Voids 1 # Bowel Movements 1 Weight 131 kg Blood Glucose* 323 231 276 Patient Weight 12/18/17 23:59 Weight 131 kg - Exam Exam: General: A&O x3, calm and cooperative. S/p: dressings dry and intact to both feet, no strikethrough drainage. - Lab Result Diagrams: 12/19/17 04:39 12/19/17 04:39 Labs: Abnormal lab results WBC 14.9 K/mcL (4.3-11.1) H 12/18/17 01:37 RBC 4.02 M/mcL (4.19-5.50) L 12/18/17 01:37 Hgb 10.0 g/dL (12.9-16.9) L 12/18/17 01:37 Hct 31.1 % (37.5-50.1) L 12/18/17 01:37 MCV 77.4 fL (83.0-100.0) L 12/18/17 01:37 MCH 24.9 pg (28.0-33.3) L 12/18/17 01:37 RDW 15.4 % (11.5-14.5) H 12/18/17 01:37 MPV 9.3 fL (9.4-12.4) L 12/18/17 01:37 Neutrophils # 11.5 K/mcL (1.6-8.9) H 12/18/17 01:37 ESR >= 130 mm/hr (0-10) H 12/16/17 11:30 Sodium 133 mEq/L (136-145) L 12/18/17 01:37 Carbon Dioxide 21 mEq/L (23-29) L 12/18/17 01:37 BUN 46 mg/dL (6-20) H 12/18/17 01:37 Creatinine 2.04 mg/dL (0.70-1.30) H 12/18/17 01:37 Est GFR ( Amer) 41 (> 60) L 12/18/17 01:37 Est GFR (Non-Af Amer) 34 (> 60) L 12/18/17 01:37 Glucose 255 mg/dL (70-105) H 12/18/17 01:37 POC Glucose 280 mg/dL (70-99) H 12/17/17 16:34 C-Reactive Protein 247 mg/L (Less than 10) H 12/16/17 11:30 Consult Discharge Plan - Plan Referrals: Marissa Pitts CNP [Primary Care Provider] -
--- NOTE | 2017-12-18 15:03 | Infectious Disease Consult ---
Date of Encounter: 12/18/17 Time of Encounter: 14:54 Assessment and Plan (1) Sepsis Status: Acute Assessment and plan: Severe sepsis: The patient had 3 sirs criteria on admission plus BLANKA. Likely secondary to osteomyelitis and gas gangrene of the right foot. Improved. White blood cell count is trending down. He has been afebrile since admission. Tachycardia has resolved. Blood cultures drawn 12/13/17 are negative x 2 sets. Qualifiers: Sepsis type: sepsis due to unspecified organism Qualified Code(s): A41.9 - Sepsis, unspecified organism (2) Osteomyelitis Status: Suspected Assessment and plan: Location: Right foot 5th metatarsal. Causative organism unclear. Swab culture positive for MSSA, but concern for polymicrobial infection given the extent of the infection. MRI of the foot showed subcutaneous gas with possible OM. ESR >130. CRP 247. Podiatry consulted and following. Status post I & D with partial 5th ray amputation 11/28/[address] Cantu. Operative note reviewed. Pus noted intra-op. Cultures and pathology are pending. The patient does have hardware in his foot. We will need to be aggressive with his antibiotics. Scheduled for repeat washout later today. Wound care and activity restrictions per the podiatry team. Discontinue rocephin. Re-start Vancomycin IV. Pharmacy to dose. Goal trough ~15. Start Cefepime 2 grams IV Q12H. Start flagyl 500mg PO TID. Once intra-op cultures finalize, will de-escalate. Duration of treatment depends on the clinical picture, but likely 6 weeks of IV antibiotics. Monitor renal function and for drug toxicity and dose-adjust antibiotics. Qualifiers: Osteomyelitis type: unspecified type Osteomyelitis location: foot Laterality: right Qualified Code(s): M86.9 - Osteomyelitis, unspecified (3) Gas gangrene of foot Status: Acute Assessment and plan: Causative organism unclear. Status post I & D 12/15/[address] Catnu. Await cultures. Antibiotics as above. (4) Cellulitis and abscess of foot Status: Acute Assessment and plan: Location: Right foot. Causative organism unclear. Etiology unclear. The patient does not recall injury or trauma or previous ulcer. Antibiotics as above. (5) Acute kidney injury superimposed on CKD Status: Acute Assessment and plan: Likely secondary to sepsis and dehydration from poor PO intake. Continue to trend. Dose-adjust antibiotics. Avoid nephrotoxins as able. (6) Diabetic foot ulcer associated with diabetes mellitus due to underlying condition Status: Acute Assessment and plan: Location: Left foot. Secondary to previous trauma. Clinically does not appear infected. Wound care per the podiatry team. Qualifiers: Diabetic foot ulcer location: midfoot Laterality: left Non-pressure ulcer stage: with necrosis of bone Qualified Code(s): E08.621 - Diabetes mellitus due to underlying condition with foot ulcer; L97.424 - Non-pressure chronic ulcer of left heel and midfoot with necrosis of bone (7) Atrial fibrillation Status: Chronic Qualifiers: Atrial fibrillation type: paroxysmal Qualified Code(s): I48.0 - Paroxysmal atrial fibrillation (8) Hypertension Status: Chronic Qualifiers: Hypertension type: essential hypertension Qualified Code(s): I10 - Essential (primary) hypertension (9) Morbid obesity Status: Chronic (10) Type 2 diabetes mellitus Status: Chronic Assessment and plan: Uncontrolled. HgbA1C 12.7% Blood sugars continue to run high. Recommend aggressive glucose monitoring and control to promote wound healing and prevent re-infection. Management per the hospitalist team. 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 Mercedes is a 52 year old male with a past medical history of arthritis, A. fib on the Route, CHF, COPD, CAD status post CABG, type 2 diabetes diagnosed about 30 years ago currently on insulin, hyperlipidemia, hypertension, MA, chronic kidney disease, and a chronic left foot diabetic foot ulcer. The patient was admitted to the hospital December 13 for acute kidney injury on chronic kidney disease and Sirs. We are consulted December 18 for antibiotic recommendations for right foot osteomyelitis. Briefly, the patient is a 52-year-old male with past medical history as stated above. The patient presented to [facility] on December 13 with complaints of generalized fatigue and malaise with fevers, chills, nausea with vomiting, and dizziness. Upon arrival, the patient was febrile and tachycardic and had leukocytosis with neutrophilic predominance. He was also noted to have an elevated serum creatinine of 2 and hyperglycemia. Chest x-ray was negative. CT abdomen and pelvis showed mild left perinephric stranding, but urinalysis was negative. Patient was noted to have a new wound to the right foot and wound culture was obtained and was positive for MSSA. The cultures were obtained 2 sets and are NGTD. Flu antigen swab was negative. He was originally admitted to the inpatient unit at [facility] for further evaluation and treatment. He had an MRI of the right foot that showed phlegmonous changes over the fifth MTP joint, fifth toe and extending to the lateral third MTP joint as well as small foci of gas and possible early ostromyelitis of the fifth proximal phalanx base. He was started empirically on IV antibiotics and transferred to [facility] for further evaluation and treatment. Since transfer here, the patient has been evaluated by podiatry. He was taken emergently to the operating room on December 15 and underwent an I&D and partial amputation of the fifth ray by Dr. Gil. Intraoperatively, there was pus noted. Post-op, the patient's white blood cell count improved, but went back up again yesterday and is currently 14.9 thousand today. Postop ESR was greater than 130 and his CRP was 247. Serum creatinine is stable at 2 today. He was originally started on IV maintenance dose and it was descalated to Rocephin today. He is scheduled back to the operating room for repeat washout later today. We have been asked to evaluate and make further recommendations. During my exam today, the patient endorses a history as stated above. He states that overall he feels better. He reports fevers and chills and rigors prior to admission, but denies any since then. He states his headache and dizziness seem to have improved. He reported a cough productive of white sputum which is also resolved. He denies any chest pain, but does report chronic shortness of breath secondary to his COPD. He reported nausea with 2 episodes of vomiting prior to admission, but states this is resolved as well. States appetite is okay. He states his blood sugars were running pretty high at home. He states he is unsure what caused the ulceration to the right foot he does not remember any traumatic injury or stepping on anything. He does have a chronic ulcer to the left foot that started a couple of months ago for which she has been following with Dr. Gil in the wound clinic that was caused by him stepping on a wire coat spinning frame changer. He states that Dr. Gil told him today that that wound looks pretty good and does not appear infected. He denies any oral thrush or new skin lesions. He denies any pain at the site of surgical incision. He does report increased redness and swelling to the right foot that started last week, but states he has not seen his foot since surgery. He denies any discharge or foul smell. The patient lives at home with his brother and [id number] and nephew. He does report that there are 2 dogs typically in the house, but denies any contact between the dogs and the patient's foot. He denies recent travel. He is on disability and has not worked for several years due to his diabetes. He reports that he chews about a can of smokeless tobacco every 2 days. He denies any alcohol or illicit drug use. CC: Volodymyr Luis, Past Med Surg Social Fam HX - Past Medical History Attestation: Yes The following information was validated with the patient. Source: patient, old records reviewed, nursing notes reviewed Medical history: arthritis, atrial fibrillation, CHF, COPD, coronary artery disease, CVA, diabetes, GERD, hyperlipidemia, hypertension, myocardial infarction, renal disease Psychiatric history: anxiety, depression - Past Surgical History Surgical History: cataract, coronary bypass (CABG), orthopedic, other (Right hip replacement, ORIF right foot, amputation left foot 4th toe ), other - Social History Smoking Status: Former smoker Smokeless Tobacco Status: Yes Alcohol use: none Drug use: none Occupational status: disabled Current living situation: Home, With Family Activity Level: Independent ambulation Recent Out of Country Travel Within the Last 8 Weeks: No Exposure or Possible Exposure to Illness During Travel: No - Family History Mother Family Member Ethnicity: Non- Living Status: Hx Family Cardiac Disorders: Yes (HD, HTN, CHF) Hx Family Respiratory Disorders: Yes (COPD) Father Family Member Ethnicity: Non- Living Status: Hx Family Cardiac Disorders: Yes (HD, HTN, MA) Brother Family Member Ethnicity: Non- Living Status: Still Living Hx Family Cardiac Disorders: Yes (HD) Hx Family Respiratory Disorders: Yes (COPD) Sister Family Member Ethnicity: Non- Living Status: Still Living Hx Family Endocrine Disorder: Yes (T2DM) Infectious Disease-CN:Meds Aspirin [Lo-Dose Aspirin EC] 81 mg PO QAM 03/11/16 [History] Atorvastatin [Lipitor] 40 mg PO HS 03/11/16 [History] Insulin ASPART [Novolog Flexpen] 20 - 33 unit SQ TIDWM 03/11/16 [History] Albuterol Sulfate [Ventolin Hfa] 2 puff IH Q4H PRN 06/07/16 [History] Diltiazem CD (24hr) [Cardizem CD] 120 mg PO DAILY #30 tab 03/07/17 [Rx] Isosorbide MONOnitrate (24 HR) [Imdur] 30 mg PO DAILY #30 tab 03/07/17 [Rx] Rivaroxaban [Xarelto] 15 mg PO DAILY 04/22/17 [History] Cetirizine HCl [Zyrtec] 10 mg PO DAILY 05/08/17 [History] Ascorbic Acid [Vitamin C] 500 mg PO 0630 #30 tablet 11/03/17 [Rx] Ferrous Sulfate 325 mg PO 0630 #30 tablet 11/03/17 [Rx] Furosemide [Lasix] 40 mg PO DAILY #0 11/03/17 [Rx] Insulin Glargine [Lantus] 70 unit SQ HS 12/15/17 [History] Polyethylene Glycol 3350 [MiraLAX] 17 gm PO DAILY PRN 12/15/17 [History] Collagenase Oint [Santyl] 1 appl TP DAILY 12/16/17 [History] Insulin Glargine,Hum.rec.anlog [Lantus Solostar] 20 units SQ QAM 12/16/17 [ History] cloNIDine HCl [CloNIDine HCl] 0.1 mg PO TID 12/16/17 [History] 3 Allergy/AdvReac Type Severity Reaction Status Date / Time No Known Allergies Allergy Verified 12/16/17 12:45 All systems: reviewed and no additional remarkable complaints except as stated Exam - Constitutional Vitals: Temp Pulse Resp BP Pulse Ox 97.8 F 75 18 138/69 98 05/21/18 11:30 12/18/17 11:30 12/18/17 11:30 12/18/17 11:30 12/18/17 11:30 General appearance: cooperative, morbidly obese, no acute distress - Head Head exam: Present: atraumatic, normal inspection, normocephalic - Eye Eye exam: Present: EOMI, normal appearance, PERRL Pupils: Present: normal accommodation - ENT ENT exam: Present: mucous membranes moist - Neck Neck exam: Present: normal inspection - Respiratory Respiratory exam: Present: CTAB. Absent: rales, respiratory distress, rhonchi, wheezes - Cardiovascular Cardiovascular exam: Present: irregular rhythm. Absent: tachycardia - GI/Abdominal GI/Abdominal exam: Present: distended (obese), normal bowel sounds, soft. Absent: tenderness - Extremities Exam Extremities exam: Absent: joint swelling, pedal edema, tenderness Additional comments: Right foot post-op dressing C/D/I. Stage II DFU noted to the plantar aspect of the left foot with wound bed 100% granulation tissue. No tenderness, fluctuance, or drainage noted. - Neurological Exam Neurological exam: Present: alert, oriented X3, no focal deficits - Psychiatric Psychiatric exam: Present: normal affect, normal mood - Skin Skin exam: Present: dry, intact, normal color, warm Infectious Disease CN: Results - Labs CBC & Chem 7: 12/19/17 04:39 12/19/17 04:39 Consult Discharge Plan - Plan Referrals: Marissa Pitts CNP [Primary Care Provider] - - Attending Attestation I examined this patient and my medical decision-making was reviewed with the Resident Physician. I agree with the documented findings, disposition and treatment plan as described except to the extent set forth below. This is an addendum to original report dictated by Keely Bearden CNP. Please refer to Ganesh pryor for full detail. Patient is 2-year-old gentleman who has extensive past medical history mentioned below including diabetes mellitus type 2 that is poorly controlled on insulin, peripheral vascular disease, chronic kidney disease with a chronic left foot diabetic foot ulcer. Patient apparently came in complaining of generalized fatigue and malaise fevers chills nausea vomiting. Patient was noted to be in acute kidney injury and had SIRS criteria. CT of the abdomen pelvis showed mild left perinephric stranding but urinalysis was negative. Patients right foot wound was cultured and it came back positive for MSSA. Flu antigen swab was also done and came back negative patient was admitted to [facility]. Patient had an MRI of the right foot that showed phlegmonous changes over the fifth MTP and small foci of gas and possible early osteomyelitis. Patient was transferred here was taken to surgery by Dr. Gil where he had partial amputation of the fifth ray and had an I&D done. Intra-Op cultures are still pending patient was started on a panic broad-spectrum antibiotics and we were consulted to evaluate make further recommendations Clinically patient is doing well. Blood sugars controlled. No complaints. Review of systems unremarkable. Physical exam as above. Assessment and plan: Severe sepsis Right foot osteomyelitis and a phlegmon Gas gangrene of the foot Diabetes mellitus type 2 poorly controlled Acute on chronic kidney failure Recommendation: Agree with vancomycin for now Goal vancomycin trough around 15 Yet to be very vigilant with his kidney function: We will ask pharmacy to help with the dosing Start cefepime and Flagyl. Dose adjust the cefepime based on the creatinine clearance Await cultures to finalize We will discuss with Dr. Gil since patient has a hardware if he feels the hardware is in proximity of the infection and needs to be removed or if we need to add rifampin versus if it is far and we can just observe. Monitor labs and serial inflammatory markers and for drug toxicity
--- NOTE | 2017-12-18 17:28 | Internal Med Progress Note ---
Date of Encounter: 12/18/17 Time of Encounter: 11:15 - Assessment and plan (1) Gas gangrene of foot Current Visit: Yes Status: Acute Assessment and plan: underwent right 5th ray partial amputation on 12/15; improving leukocytosis; postop plan per primary team; pain control with PRN Oxycodone; cannot find aerobic cultures from OR; plan for OR today; likely will need skilled nursing IV antibiotics; ID consulted; (2) Abscess of right foot Current Visit: Yes Status: Acute (3) Morbid obesity Current Visit: Yes Status: Chronic (4) Atrial fibrillation Current Visit: Yes Status: Chronic Assessment and plan: currently rate-controlled; continue CCB and beta ana laura; anticoagulation with Xarelto; Qualifiers: Atrial fibrillation type: paroxysmal Qualified Code(s): I48.0 - Paroxysmal atrial fibrillation (5) CAD (coronary artery disease) Current Visit: Yes Status: Chronic Qualifiers: Coronary Disease-Associated Artery/Lesion type: [place] artery [place] vs. transplanted heart: [place] heart Associated angina: without angina Qualified Code(s): I25.10 - Atherosclerotic heart disease of [place] coronary artery without angina pectoris (6) Chronic kidney disease, stage III (moderate) Current Visit: Yes Status: Chronic Assessment and plan: serum creatinine at 2.04; almost at baseline; monitor closely; (7) Type 2 diabetes mellitus Current Visit: Yes Status: Chronic Assessment and plan: blood sugars better controlled, but still high; will again increase Levemir and continue SSI; Acuucheck blood glucose monitoring with basal bolus insulin regimen; check HbA1C; diabetic diet; Qualifiers: Diabetes mellitus skilled nursing insulin use: with intermediate manager use Diabetes mellitus complication status: with skin complications Diabetes mellitus complication detail: with foot ulcer Qualified Code(s): E11.621 - Type 2 diabetes mellitus with foot ulcer; L97.509 - Non-pressure chronic ulcer of other part of unspecified foot with unspecified severity; 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 (8) Hypertension Current Visit: Yes Status: Chronic Assessment and plan: BP elevated; continue home meds, will increase Imdur; will use PRN IV Hydralazine; Qualifiers: Hypertension type: essential hypertension Qualified Code(s): I10 - Essential (primary) hypertension - Time Spent With Patient Total time spent is greater than 50% in coordination of care (as documented) at patient's floor/unit and/or counseling patient: - Subjective Interval history: Denies new complaints; no chest pain, palpitations, dyspnea; had elevated BP this morning; no foot pain at this time; awaiting further debridement on right foot today; - Constitutional Vitals: Temp Pulse Resp BP Pulse Ox 97.8 F 80 18 160/70 95 12/18/17 15:47 12/18/17 15:47 12/18/17 15:47 12/18/17 15:47 12/18/17 15:47 General appearance: Present: A&O X 3, morbidly obese, answers questions appropriately - Respiratory Respiratory exam: Present: CTAB. Absent: accessory muscle use, rales, rhonchi, wheezes - Cardiovascular Cardiovascular exam: Present: RRR, +S1, +S2. Absent: diastolic murmur, gallop, rubs, systolic murmur - GI/Abdominal GI/Abdominal exam: Present: normal bowel sounds, soft (obese), no peritoneal signs. Absent: distended, tenderness - Extremities Exam Extremities exam: Present: full ROM, warm, radial pulses palpable and symmetrical. Absent: calf tenderness, cyanotic, pedal edema Internal Medicine: Result - Labs CBC & Chem 7: 12/18/17 01:37 12/18/17 01:37 Labs: Short CBC 12/18/17 Range/Units 01:37 WBC 14.9 H (4.3-11.1) K/mcL Hgb 10.0 L (12.9-16.9) g/dL Hct 31.1 L (37.5-50.1) % Plt Count 297 (140-400) K/mcL Neutrophils # 11.5 H (1.6-8.9) K/mcL BMP 12/18/17 01:37 Sodium 133 L Potassium 4.3 Chloride 105 Carbon Dioxide 21 L BUN 46 H Creatinine 2.04 H Glucose 255 H Calcium 8.7 Consult Discharge Plan - Plan Referrals: Marissa Pitts CNP [Primary Care Provider] -
[2017-12-18] MEDS ORDERED: Isosorbide MONOnitrate (24 HR) 60 MG TAB.ER.24H PO SCH (17:32)
[2017-12-18] MEDS ORDERED: Insulin DETEMIR 100 UNIT/ML X5UNITS SQ SCH (21:00)
--- NOTE | 2017-12-19 00:01 | Anesthesia Evaluation PreOp ---
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: CVA (no deficits) Other Medical History: Renal (ckd stage 3), Diabetes Type II (uses insulin), Other (BMI 43) Anesthesia History: No Prior Anesthetic Complications Alcohol Use: none Drug use: none Medications and Allergies Aspirin [Lo-Dose Aspirin EC] 81 mg PO QAM 03/11/16 [History] Atorvastatin [Lipitor] 40 mg PO HS 03/11/16 [History] Insulin ASPART [Novolog Flexpen] 20 - 33 unit SQ TIDWM 03/11/16 [History] Albuterol Sulfate [Ventolin Hfa] 2 puff IH Q4H PRN 06/07/16 [History] Diltiazem CD (24hr) [Cardizem CD] 120 mg PO DAILY #30 tab 03/07/17 [Rx] Isosorbide MONOnitrate (24 HR) [Imdur] 30 mg PO DAILY #30 tab 03/07/17 [Rx] Rivaroxaban [Xarelto] 15 mg PO DAILY 04/22/17 [History] Cetirizine HCl [Zyrtec] 10 mg PO DAILY 05/08/17 [History] Ascorbic Acid [Vitamin C] 500 mg PO 0630 #30 tablet 11/03/17 [Rx] Ferrous Sulfate 325 mg PO 0630 #30 tablet 11/03/17 [Rx] Furosemide [Lasix] 40 mg PO DAILY #0 11/03/17 [Rx] Insulin Glargine [Lantus] 70 unit SQ HS 12/15/17 [History] Polyethylene Glycol 3350 [MiraLAX] 17 gm PO DAILY PRN 12/15/17 [History] Collagenase Oint [Santyl] 1 appl TP DAILY 12/16/17 [History] Insulin Glargine,Hum.rec.anlog [Lantus Solostar] 20 units SQ QAM 12/16/17 [ History] cloNIDine HCl [CloNIDine HCl] 0.1 mg PO TID 12/16/17 [History] 3 Allergy/AdvReac Type Severity Reaction Status Date / Time No Known Allergies Allergy Verified 12/16/17 12:45 - Meds/Allergy Pre-op Review Medications Reviewed: Yes Allergies Reviewed: Yes Beta Blockers on Current Med List: No Anesthesia Results - Labs 12/18/17 01:37 12/18/17 01:37 - Imaging EKG: report reviewed, image reviewed (ATRIAL FIBRILLATION MODERATE INTRAVENTRICULAR CONDUCTION DELAY NONSPECIFIC ST & T-WAVE ABNORMALITY) Additional studies: TTE: Impressions: Technically challenging study. LV systolic function appears normal with use of Definity, EF 60-65%. Indeterminate left ventricular diastolic function. RV may be normal in size. Function is not well evaluated. No significant valvular dysfunction. No pulmonary hypertension. Anesthesia Exam Last Vital Signs Temp 98 F 12/18/17 23:14 Pulse 66 12/18/17 23:14 Resp 14 12/18/17 23:14 BP 129/46 12/18/17 23:14 Pulse Ox 96 12/18/17 23:14 Weight: 132 kg NPO (# of Hours): > 8 hrs - HEENT Pupil (Motor): Pupils equal, EOMI Mallampati: III Teeth: Poor dentition Oral Opening: Greater than 3 - ELECTRICAL CONTROLS ENGINEER LOC: Oriented - Cardiac Rhythm: Regular Murmur: None - Pulmonary Breath Sounds: bilateral Clear Respiratory Effort: Symmetrical Anesthesia Assess/Plan ASA Score: 3 Modified [place] Scale for Level of Consciousness: Cooperative, oriented, and tranquil Anesthetic Plan: MAC Monitoring Plan: Standard Monitors Recovery Plan: PACU
[2017-12-19] MEDS ORDERED: *HR* FentaNYL (PF) 100 MCG/2 ML VIAL ONE (00:03)
[2017-12-19] MEDS ORDERED: *HR* Succinylcholine 200 MG/10 ML VIAL IVP ONE (00:03)
[2017-12-19] MEDS ORDERED: *HR* Propofol 200 MG/20 ML VIAL IVP ONE (00:03)
[2017-12-19] MEDS ORDERED: *HR* Midazolam HCl 2 MG/2 ML VIAL ONE (00:03)
[2017-12-19] MEDS ORDERED: Lidocaine -MPF 2% 2 ML VIAL ONE (00:03)
[2017-12-19] MEDS ORDERED: Lidocaine 1% 20 ML MDV ONE (00:38)
[2017-12-19] MEDS ORDERED: Bupivacaine-MPF 0.25% 10 ML VIAL ONE (00:38)
[2017-12-19] MEDS ORDERED: Propofol 500 MG/50 ML INFUS..BTL ONE (00:41)
[2017-12-19] MEDS ORDERED: Vancomycin 1,000 MG VIAL ONE (01:01)
[2017-12-19] MEDS ORDERED: Water for inj. (sterile) 10 ML IV ONE (01:02)
[2017-12-19] MEDS ORDERED: *HR* PHENYLEPHRINE 1,000 MCG/10 ML SYRINGE IVP ONE (01:26)
--- NOTE | 2017-12-19 01:47 | Operative Note ---
Date of procedure: 12/19/17 Pre-op diagnosis: right diabetic foot infection, open 5th ray amp 4cmx3.9cmx0.5cm Post-op diagnosis: same Procedure: Washout of right foot wound, excisional debridement of right foot wound to the levelof bone, application of PRP and wound vac. 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 Explained to patient that he still remains high risk for partial foot/limb loss. The right lower extremity was scrubbed prepped and draped in the usual sterile fashion. Following IV sedation the following procedures began. Washout of right foot wound, excisional debridement of right foot wound to the levelof bone, application of PRP and wound vac. Attention was directed to the lateral aspect of the patient's right foot where a wound was present with a fibro-necrotic base. The Calpianonex debridement wand was used to excisionally debride the right foot ulceration down to the level of the fifth metatarsal bone that remained. All fibro-necrotic tissue was removed until there was a healthy bleeding granular base. Adequate hemostasis was present. The remaining bone appeared healthy and hardened quality. The area surrounding the bone and soft tissue ulceration were probed and explored and no purulence could be expressed. A culture of the right foot wound was taken and sent to microbiology. The right foot wound was flushed with copious amounts of normal sterile saline mixed with vancomycin. PRP was made from the patient's own blood and applied to the wound. Next Adaptic was applied over the wound and black foam for the wound VAC with the wound VAC set at 125 mm continuous. Patient tolerated the anesthesia and the procedure well and was escorted the recovery room with vital signs stable and vascular status remaining intact to the remaining digits of the right foot noted by instant capillary refill time. Patient will return to the floor where he will continue IV antibiotics and followed by infectious disease.
--- NOTE | 2017-12-19 02:03 | Anesthesia Evaluation Post Op ---
Date of Encounter: 12/19/17 Time of Encounter: 02:02 - Vital Signs Vital Signs: See Anesthesia record - Lungs Lungs: Clear Ascult./Percussion - Airway Airway: Non-obstructed - Cardiovascular Irregular Rate, Baseline Rhythm - Mental Status Mental Status: Alert & Oriented, Answers Appropriately - Pain Pain Scale: 1 - Nausea Vomiting Nausea Vomiting: Not Present - Hydration Hydration: NPO - Discharge PostOp Status: Transfer Patient to floor
[2017-12-19] MEDS ORDERED: Acetaminophen 325 MG TABLET PO PRN (02:16)
[2017-12-19] MEDS ORDERED: *HR* Dextrose 50 % in Water (Syg) 50 ML SYRINGE IVP PRN (02:16)
[2017-12-19] MEDS ORDERED: Dextrose Gel 15 GM/37.5 ML TUBE PO PRN ×2 (02:16)
[2017-12-19] MEDS ORDERED: D5% in Water 1,000 ML IVC PRN (02:16)
[2017-12-19] MEDS ORDERED: Ipratropium/Albuterol Neb 3 ML IH PRN (02:16)
[2017-12-19] MEDS: *HR* OxyCODONE Immed Rel 5 MG TABLET PO PRN ×2 (03:01→14:38)
[2017-12-19 05:02] LABS: Basophils # 0.1 K/mcL (0.0-0.2); Basophils % 0.7 %; Eosinophils # 0.3 K/mcL (0.0-0.6); Hematocrit 35.8 % (37.5-50.1); Hemoglobin 10.9 g/dL (12.9-16.9); Immature Granulocytes % 5.5 % (0-4); Lymphocytes % 15.1 %; Mean Corpuscular HGB Conc 30.4 g/dL (31.6-35.5); Mean Corpuscular Hemoglobin 24.2 pg (28.0-33.3); Mean Corpuscular Volume 79.6 fL (83.0-100.0); Mean Platelet Volume 9.4 fL (9.4-12.4); Monocytes # 0.7 K/mcL (0.0-1.3); Neutrophils # 7.6 K/mcL (1.6-8.9); Nucleated Red Blood Cells 0.2 /100 WBC (0); Platelet Count 319 K/mcL (140-400); Red Cell Distribution Width 15.8 % (11.5-14.5); Segmented Neutrophils % 69.7 %
[2017-12-19 05:19] LABS: Potassium 4.4 mEq/L (3.5-5.1)
[2017-12-19 05:21] LABS: Lymphocytes # 1.7 K/mcL (0.6-4.6)
[2017-12-19 05:23] LABS: Platelet Estimate Normal (Normal)
[2017-12-19] MEDS: Ascorbic Acid 500 MG TABLET PO SCH (05:33)
[2017-12-19] MEDS: Insulin LISPRO 300 UNITS/3 ML VIAL SQ SCH ×3 (08:06→17:00)
[2017-12-19] MEDS: Gentamicin Oint 15 GM TUBE TP SCH (08:07)
[2017-12-19] MEDS: Isosorbide MONOnitrate (24 HR) 60 MG TAB.ER.24H PO SCH (08:08)
[2017-12-19] MEDS: Loratadine 10 MG TABLET PO SCH (08:08)
[2017-12-19] MEDS: Furosemide 40 MG TABLET PO SCH (08:08)
[2017-12-19] MEDS: *HR* Rivaroxaban 15 MG TABLET PO SCH (08:08)
[2017-12-19] MEDS: Diltiazem CD (24hr) 120 MG CAPSULE PO SCH (08:08)
[2017-12-19] MEDS: Aspirin Enteric Coated 81 MG Tablet PO SCH (08:08)
[2017-12-19] MEDS ORDERED: Isosorbide MONOnitrate (24 HR) 60 MG TAB.ER.24H PO SCH (09:00)
[2017-12-19] MEDS ORDERED: Insulin DETEMIR 100 UNIT/ML X5UNITS SQ SCH ×5 (09:00→21:00)
--- NOTE | 2017-12-19 09:42 | Infectious Disease Progress No ---
Date of Encounter: 12/19/17 Time of Encounter: 09:40 - Assessment and Plan (1) Sepsis Current Visit: Yes Status: Acute Severe sepsis: The patient had 3 sirs criteria on admission plus BLANKA. Likely secondary to osteomyelitis and gas gangrene of the right foot. Improved. White blood cell count normal. He has been afebrile since admission. Tachycardia has resolved. Blood cultures drawn 12/13/17 are negative x 2 sets. Qualifiers: Sepsis type: sepsis due to unspecified organism Qualified Code(s): A41.9 - Sepsis, unspecified organism (2) Osteomyelitis Current Visit: No Status: Suspected Location: Right foot 5th metatarsal. Causative organism unclear. Swab culture positive for MSSA, but concern for polymicrobial infection given the extent of the infection. MRI of the foot showed subcutaneous gas with possible OM. ESR >130. CRP 247. Podiatry consulted and following. Status post I & D with partial 5th ray amputation 11/28/[address] Cantu. Operative note reviewed. Pus noted intra-op. Cultures and pathology are pending. The patient does have hardware in his foot. We will need to be aggressive with his antibiotics. Status post repeat washout with PRP graft application 12/19/[address] Cantu. Operative note reviewed. Wound care and activity restrictions per the podiatry team. Continue Vancomycin IV. Pharmacy to dose. Goal trough ~15. Continue Cefepime 2 grams IV Q12H. Continue flagyl 500mg PO TID. Once intra-op cultures finalize, will de-escalate. Duration of treatment depends on the clinical picture, but likely 6 weeks of IV antibiotics. Monitor renal function and for drug toxicity and dose-adjust antibiotics. director of convention services to assist with discharge planning. Okay to consult VAT prior to discharge for IV line placement. Will wait until final antibiotic regimen is decided. Qualifiers: Osteomyelitis type: unspecified type Osteomyelitis location: foot Laterality: right Qualified Code(s): M86.9 - Osteomyelitis, unspecified (3) Gas gangrene of foot Current Visit: Yes Status: Acute Causative organism unclear. Status post I & D 12/15/[address] Cantu. Await cultures. Antibiotics as above. (4) Cellulitis and abscess of foot Current Visit: No Status: Acute Location: Right foot. Causative organism unclear. Etiology unclear. The patient does not recall injury or trauma or previous ulcer. Antibiotics as above. (5) Acute kidney injury superimposed on CKD Current Visit: No Status: Acute Likely secondary to sepsis and dehydration from poor PO intake. Improved. Continue to trend. Dose-adjust antibiotics. Avoid nephrotoxins as able. (6) Diabetic foot ulcer associated with diabetes mellitus due to underlying condition Current Visit: No Status: Acute Location: Left foot. Secondary to previous trauma. Clinically does not appear infected. Wound care per the podiatry team. 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 HgbA1C 12.7% Blood sugars continue to run high. Recommend aggressive glucose monitoring and control to promote wound healing and prevent re-infection. Management per the hospitalist team. Qualifiers: Diabetes mellitus skilled nursing insulin use: with skilled nursing use Diabetes mellitus complication status: with skin complications Diabetes mellitus complication detail: with foot ulcer Qualified Code(s): E11.621 - Type 2 diabetes mellitus with foot ulcer; L97.509 - Non-pressure chronic ulcer of other part of unspecified foot with unspecified severity; Z79.4 - FDC ( current) use of insulin - Subjective Interval history: Patient seen and examined. No acute events noted overnight. Patient sitting up in bed, watching TV. Reports some mild pain in the right foot earlier this morning, relieved with pain medication. Denies fevers, chills, or rigors. Denies chest pain or cough. Reports chronic OBEY, worse with exertion, that seems to be at baseline. Denies nausea, vomiting, diarrhea, or constipation. Reports BM yesterday. Denies abdominal pain, urinary complaints, or appetite changes. Denies oral thrush or new skin lesions. Infect Dis PN-Objective Data - Labs CBC & Chem 7: 12/19/17 04:39 12/19/17 04:39 Labs: Laboratory Results - last 24 hr 12/18/17 12/18/17 12/18/17 06:59 11:00 15:52 WBC RBC Hgb Hct MCV MCH MCHC RDW Plt Count MPV Immature Gran % Seg Neutrophils % Lymphocytes % Monocytes % Eosinophils % Basophils % Neutrophils # Lymphocytes # Monocytes # Eosinophils # Basophils # Nucleated RBCs/100 WBC Platelet Estimate Sodium Potassium Chloride Carbon Dioxide BUN Creatinine Est GFR ( Amer) Est GFR (Non-Af Amer) BUN/Creatinine Ratio Glucose POC Glucose 231 H 276 H 262 H Calculated Osmolality Calcium 12/18/17 12/19/17 12/19/17 20:44 04:39 04:39 WBC 10.9 RBC 4.50 Hgb 10.9 L Hct 35.8 L MCV 79.6 L MCH 24.2 L MCHC 30.4 L RDW 15.8 H Plt Count 319 MPV 9.4 Immature Gran % 5.5 H Seg Neutrophils % 69.7 Lymphocytes % 15.1 Monocytes % 6.0 Eosinophils % 3.0 Basophils % 0.7 Neutrophils # 7.6 Lymphocytes # 1.7 Monocytes # 0.7 Eosinophils # 0.3 Basophils # 0.1 Nucleated RBCs/100 WBC 0.2 H Platelet Estimate Normal Sodium 134 L Potassium 4.4 Chloride 106 Carbon Dioxide 21 L BUN 36 H Creatinine 1.51 H Est GFR ( Amer) 59 L Est GFR (Non-Af Amer) 48 L BUN/Creatinine Ratio 24 Glucose 261 H POC Glucose 146 H Calculated Osmolality 295 Calcium 9.0 12/19/17 07:52 WBC RBC Hgb Hct MCV MCH MCHC RDW Plt Count MPV Immature Gran % Seg Neutrophils % Lymphocytes % Monocytes % Eosinophils % Basophils % Neutrophils # Lymphocytes # Monocytes # Eosinophils # Basophils # Nucleated RBCs/100 WBC Platelet Estimate Sodium Potassium Chloride Carbon Dioxide BUN Creatinine Est GFR ( Amer) Est GFR (Non-Af Amer) BUN/Creatinine Ratio Glucose POC Glucose 275 H Calculated Osmolality Calcium Cultures: Cultures 12/19/17 01:00 Gram Stain - Final Right Foot Exam - Constitutional Vitals: Temp Pulse Resp BP Pulse Ox 97.5 F L 88 16 179/71 96 12/19/17 07:21 12/19/17 07:21 12/19/17 07:21 12/19/17 07:21 05/22/18 07:21 General appearance: cooperative, morbidly obese, no acute distress - Head Head exam: Present: atraumatic, normal inspection, normocephalic - Eye Eye exam: Present: EOMI, normal appearance, PERRL Pupils: Present: normal accommodation - ENT ENT exam: Present: mucous membranes moist Additional comments: Poor dentition noted. - Neck Neck exam: Present: normal inspection - Respiratory Respiratory exam: Present: CTAB. Absent: rales, respiratory distress, rhonchi, wheezes - Cardiovascular Cardiovascular exam: Present: irregular rhythm. Absent: tachycardia - GI/Abdominal GI/Abdominal exam: Present: distended (obese), normal bowel sounds, soft. Absent: tenderness - Extremities Exam Extremities exam: Absent: joint swelling, pedal edema, tenderness Additional comments: Right foot pos-op dressing noted C/D/I. Wound VAC noted without leak. Unable to fully assess dressing due to overlying post-op dressing. Left foot guaze dressing C/D/I. - Neurological Exam Neurological exam: Present: alert, oriented X3, no focal deficits - Psychiatric Psychiatric exam: Present: normal affect, normal mood - Skin Skin exam: Present: dry, intact, normal color, warm Consult Discharge Plan - Plan Referrals: Marissa Pitts CNP [Primary Care Provider] - - Attending Attestation I examined this patient and my medical decision-making was reviewed with the Resident Physician. I agree with the documented findings, disposition and treatment plan as described except to the extent set forth below.
[2017-12-19] MEDS ORDERED: Piperacillin/Tazobactam 3.375 GM in 0.9 % Sodium Chloride Mini Bag 100 ML IVPB SCH (10:00)
[2017-12-19] MEDS: metroNIDAZOLE 500 MG TABLET PO SCH ×3 (11:27→22:30)
[2017-12-19] MEDS: Cefepime HCl 2,000 MG in Water for inj. (sterile) 20 ML 20 ML IVPB SCH ×2 (11:27→22:30)
[2017-12-19] MEDS ORDERED: cefTRIAXone 2,000 MG in Water for inj. (sterile) 20 ML 20 ML IVP SCH (12:00)
--- NOTE | 2017-12-19 16:08 | Podiatry Progress Note ---
Date of Encounter: 12/19/17 Time of Encounter: 12:00 - Assessment and Plan (1) Diabetic foot ulcer associated with diabetes mellitus due to underlying condition Current Visit: No Status: Acute Large diabetic ulceration, grade 3 with abscess formation and possible gas within the tissue PLAN: evaluated at bedside Wound vac intact MWF change, will need to be changed tomorrow- will reassess wound at that time Continue with IV antibiotics per ID recommendations, vanc, cefepime and flagyl, await intra op cultures Patient states he plans to go to [facility] for dressing changes, he does not have family at home to care for him Minimal protective weight bearing to heel c/w elevation Medical management per internal Will need to be followed in wound care clinic with 1 week after discharge. Qualifiers: Diabetic foot ulcer location: midfoot Laterality: left Non-pressure ulcer stage: with necrosis of bone Qualified Code(s): E08.621 - Diabetes mellitus due to underlying condition with foot ulcer; L97.424 - Non-pressure chronic ulcer of left heel and midfoot with necrosis of bone Subjective Interval history: Patient is s/p incision and drainage, open 5th ray amputation, right by Dr. Cantu for gas gangrene on 12/15 with subsequent washout on 12/18 with intraop cultures obtained. Patient resting in bed, wound vac intact and running, no c/ o pain, no c/o fever or chills. Patient states he seems to be doing fine right now. No complaints of calf pain or sob Objective - Vital Signs Vital Signs: Vital Signs Temp Pulse Resp BP Pulse Ox 12/19/17 15:37 98.2 F 68 14 166/73 98 12/19/17 10:20 97.6 F 76 15 161/75 97 12/19/17 08:00 97 12/19/17 07:21 97.5 F L 88 16 179/71 96 12/19/17 03:00 97.5 F L 94 16 144/57 97 12/19/17 02:22 97.6 F 80 24 151/73 98 12/18/17 23:14 98 F 66 14 129/46 96 Intake and Output 12/19/17 12/19/17 12/19/17 07:59 15:59 23:59 Intake Total 810 / 810 720 / 720 Output Total 805 / 805 1000 / 1000 Balance -280 / -280 Intake: Oral 810 / 810 720 / 720 Output: Urine 800 / 800 1000 / 1000 Estimated Blood Loss Other: Meal Lunch Percent of Meal Consumed 100% Stool Size Large Stool Consistency formed Stool Color Brown # Bowel Movements 0 1 Blood Glucose* 275 288 - Exam Exam: Podiatry General Exam: General appearance: alert awake oriented X 3. Calm and pleasant, no acute distress.. Vascular: Pedal pulses +2/4 DP/PT , No evidence of cyanosis, pallor or rubor, Edema graded at 1+/4, Skin Temperature warm, No calf pain with manual compression. capillary refill time is immediate to digits. Neurologic:Absent sensation to light/moderate touch Postop Exam: S/P I&D and washout x2 with vac placement on 12.18.17 per Wound vac intact, running without complication, no drainage to canister. No leak. Toes warm. Patient is neuropathic, denies any pain at this time. Movement of toes intact. Dressing secure and intact, will leave in place. Dressing remains intact to left foot, superficial ulceration known, no noted changes, will leave intact - Lab Result Diagrams: 12/19/17 04:39 12/19/17 04:39 Labs: Abnormal lab results Hgb 10.9 g/dL (12.9-16.9) L 12/19/17 04:39 Hct 35.8 % (37.5-50.1) L 12/19/17 04:39 MCV 79.6 fL (83.0-100.0) L 12/19/17 04:39 MCH 24.2 pg (28.0-33.3) L 12/19/17 04:39 MCHC 30.4 g/dL (31.6-35.5) L 12/19/17 04:39 RDW 15.8 % (11.5-14.5) H 12/19/17 04:39 Immature Gran % 5.5 % (0-4) H 12/19/17 04:39 Nucleated RBCs/100 WBC 0.2 /100 WBC (0) H 12/19/17 04:39 ESR >= 130 mm/hr (0-10) H 12/16/17 11:30 Sodium 134 mEq/L (136-145) L 12/19/17 04:39 Carbon Dioxide 21 mEq/L (23-29) L 12/19/17 04:39 BUN 36 mg/dL (6-20) H 12/19/17 04:39 Creatinine 1.51 mg/dL (0.70-1.30) H 12/19/17 04:39 Est GFR ( Amer) 59 (> 60) L 12/19/17 04:39 Est GFR (Non-Af Amer) 48 (> 60) L 12/19/17 04:39 Glucose 261 mg/dL (70-105) H 12/19/17 04:39 POC Glucose 288 mg/dL (70-99) H 12/19/17 11:23 C-Reactive Protein 247 mg/L (Less than 10) H 12/16/17 11:30 Microbiology, Last 48 Hours 12/19/17 01:00 Gram Stain - Final Right Foot Consult Discharge Plan - Plan Referrals: Marissa Pitts, EMBEDDED SOFTWARE TEST ENGINEER [Primary Care Provider] -
--- NOTE | 2017-12-19 16:47 | Internal Med Progress Note ---
Date of Encounter: 12/19/17 Time of Encounter: 16:45 - Assessment and plan (1) Atrial fibrillation Current Visit: Yes Status: Chronic Assessment and plan: currently rate-controlled; continue CCB and beta ana laura; Continue Xarelto Qualifiers: Atrial fibrillation type: paroxysmal Qualified Code(s): I48.0 - Paroxysmal atrial fibrillation (2) CAD (coronary artery disease) Current Visit: Yes Status: Chronic Assessment and plan: continue ASA, statin, beta ana laura, ACEI, nitrate; Qualifiers: Coronary Disease-Associated Artery/Lesion type: [place] artery [place] vs. transplanted heart: lime heart Associated angina: without angina Qualified Code(s): I25.10 - Atherosclerotic heart disease of [place] coronary artery without angina pectoris (3) Chronic kidney disease, stage III (moderate) Current Visit: Yes Status: Chronic Assessment and plan: At baseline which is approx 1.5-2.04 (4) Type 2 diabetes mellitus Current Visit: Yes Status: Chronic Assessment and plan: blood sugars better controlled, but still high; Levemir was increased with gradual improvement but goal to be <180. continue SSI; Acuucheck blood glucose monitoring with basal bolus insulin regimen Increase Levemir again for tonight Diabetic diet Qualifiers: Diabetes mellitus longterm insulin use: with longterm use Diabetes mellitus complication status: with skin complications Diabetes mellitus complication detail: with foot ulcer Qualified Code(s): E11.621 - Type 2 diabetes mellitus with foot ulcer; L97.509 - Non-pressure chronic ulcer of other part of unspecified foot with unspecified severity; Z79.4 - [facility] ( current) use of insulin (5) Hypertension Current Visit: Yes Status: Chronic Assessment and plan: Continue Cardizem, metoprolol 25 mg BID, lisinopril 10 mg daily. Renal function improved, increase lisinopril to 20 mg daily. Continue PRN IV Hydralazine; Qualifiers: Hypertension type: essential hypertension Qualified Code(s): I10 - Essential (primary) hypertension (6) Gas gangrene of foot Current Visit: Yes Status: Acute Assessment and plan: underwent right 5th ray partial amputation on 12/15; improving leukocytosis; postop plan per primary team; pain control with PRN Oxycodone; cannot find aerobic cultures from OR; likely will need longterm IV antibiotics; ID consulted; (7) Abscess of right foot Current Visit: Yes Status: Acute Assessment and plan: continue management as per primary team (8) Morbid obesity Current Visit: Yes Status: Chronic - Time Spent With Patient Total time spent is greater than 50% in coordination of care (as documented) at patient's floor/unit and/or counseling patient: - Subjective Interval history: No complaints, he denies CP, SOB, n/v, palpitations. - Constitutional Vitals: Temp Pulse Resp BP Pulse Ox 98.2 F 68 14 166/73 98 12/19/17 15:37 12/19/17 15:37 12/19/17 15:37 12/19/17 15:37 12/19/17 15:37 General appearance: Present: A&O X 3, answers questions appropriately Exam: - Respiratory Respiratory exam: Present: CTAB. Absent: accessory muscle use, rales, rhonchi, wheezes - Cardiovascular Cardiovascular exam: Present: RRR, +S1, +S2. Absent: diastolic murmur, gallop, rubs, systolic murmur - GI/Abdominal GI/Abdominal exam: Present: normal bowel sounds, soft (obese), no peritoneal signs. Absent: distended, tenderness - Extremities Exam Extremities exam: Present: full ROM, warm, radial pulses palpable and symmetrical. Absent: calf tenderness, cyanotic, pedal edema Internal Medicine: Result - Labs CBC & Chem 7: 12/19/17 04:39 12/19/17 04:39 Labs: Short CBC 12/19/17 Range/Units 04:39 WBC 10.9 (4.3-11.1) K/mcL Hgb 10.9 L (12.9-16.9) g/dL Hct 35.8 L (37.5-50.1) % Plt Count 319 (140-400) K/mcL Neutrophils # 7.6 (1.6-8.9) K/mcL BMP 12/19/17 04:39 Sodium 134 L Potassium 4.4 Chloride 106 Carbon Dioxide 21 L BUN 36 H Creatinine 1.51 H Glucose 261 H Calcium 9.0 Consult Discharge Plan - Plan Referrals: Marissa Pitts CNP [Primary Care Provider] -
[2017-12-19] MEDS ORDERED: Insulin LISPRO 300 UNITS/3 ML VIAL SQ SCH (21:00)
[2017-12-20] MEDS: Ascorbic Acid 500 MG TABLET PO SCH (05:45)
[2017-12-20 06:42] LABS: Eosinophils # 0.4 K/mcL (0.0-0.6); Hemoglobin 10.6 g/dL (12.9-16.9); Mean Corpuscular HGB Conc 32.1 g/dL (31.6-35.5); Mean Corpuscular Hemoglobin 25.2 pg (28.0-33.3); Mean Corpuscular Volume 78.4 fL (83.0-100.0); Monocytes # 0.7 K/mcL (0.0-1.3); Nucleated Red Blood Cells 0.4 /100 WBC (0); Platelet Count 317 K/mcL (140-400); Red Blood Count 4.21 M/mcL (4.19-5.50); Red Cell Distribution Width 15.7 % (11.5-14.5)
[2017-12-20 06:58] LABS: BUN/Creatinine Ratio 22 (6-26); Blood Urea Nitrogen 32 mg/dL (6-20); Calcium 8.9 mg/dL (8.6-10.3); Carbon Dioxide 22 mEq/L (23-29); Chloride 106 mEq/L (98-107); Glucose 95 mg/dL (70-105); Osmolality,Calculated 285 (280-300); Potassium 4.5 mEq/L (3.5-5.1); Sodium 134 mEq/L (136-145); eGFR For African Americans > 60 (> 60); eGFR For Non-African Americans 50 (> 60)
[2017-12-20 07:21] LABS: Lymphocytes # 1.9 K/mcL (0.6-4.6); Neutrophils # 7.7 K/mcL (1.6-8.9); Platelet Estimate Normal (Normal); Toxic Granulation Present (Not Present)
[2017-12-20] MEDS: Insulin LISPRO 300 UNITS/3 ML VIAL SQ SCH ×4 (08:13→21:14)
[2017-12-20] MEDS: Aspirin Enteric Coated 81 MG Tablet PO SCH (09:00)
[2017-12-20] MEDS: Isosorbide MONOnitrate (24 HR) 60 MG TAB.ER.24H PO SCH (09:00)
[2017-12-20] MEDS: Diltiazem CD (24hr) 120 MG CAPSULE PO SCH (09:00)
[2017-12-20] MEDS: Loratadine 10 MG TABLET PO SCH (09:01)
[2017-12-20] MEDS: *HR* Rivaroxaban 15 MG TABLET PO SCH (09:01)
[2017-12-20] MEDS: metroNIDAZOLE 500 MG TABLET PO SCH ×3 (09:01→21:12)
[2017-12-20] MEDS: Furosemide 40 MG TABLET PO SCH (09:01)
[2017-12-20] MEDS: Lisinopril 20 MG TABLET PO SCH (09:01)
[2017-12-20] MEDS: Gentamicin Oint 15 GM TUBE TP SCH (09:02)
[2017-12-20] MEDS ORDERED: Insulin DETEMIR 100 UNIT/ML X5UNITS SQ ONE (10:08)
[2017-12-20] MEDS: Cefepime HCl 2,000 MG in Water for inj. (sterile) 20 ML 20 ML IVPB SCH ×2 (11:13→22:32)
[2017-12-20] MEDS ORDERED: *HR* Metoprolol 5 MG/5 ML VIAL IVP PRN (12:08)
--- NOTE | 2017-12-20 14:01 | Infectious Disease Progress No ---
Date of Encounter: 12/20/17 Time of Encounter: 10:30 - Assessment and Plan (1) Sepsis Current Visit: Yes Status: Acute Severe sepsis: The patient had 3 sirs criteria on admission plus BLANKA. Likely secondary to osteomyelitis and gas gangrene of the right foot. Improved. White blood cell count normal. He has been afebrile since admission. Tachycardia has resolved. Blood cultures drawn 12/13/17 are negative x 2 sets. Qualifiers: Sepsis type: sepsis due to unspecified organism Qualified Code(s): A41.9 - Sepsis, unspecified organism (2) Osteomyelitis Current Visit: No Status: Suspected Location: Right foot 5th metatarsal. Causative organism unclear. Swab culture positive for MSSA, but concern for polymicrobial infection given the extent of the infection. MRI of the foot showed subcutaneous gas with possible OM. ESR >130. CRP 247. Podiatry consulted and following. Status post I & D with partial 5th ray amputation 11/28/[address] Cantu. Operative note reviewed. Pus noted intra-op. Cultures and pathology are pending. I called and spoke with micro this morning. Apparently, the aerobic culture order was not placed after the patient's first surgery. Luckily, the specimen was still there and is able to be run and is now pending. The patient does have hardware in his foot. We will need to be aggressive with his antibiotics. Status post repeat washout with PRP graft application 12/19/[address] Cantu. Operative note reviewed. Wound care and activity restrictions per the podiatry team. Continue Vancomycin IV. Pharmacy to dose. Goal trough ~15. Continue Cefepime 2 grams IV Q12H. Continue flagyl 500mg PO TID. Once intra-op cultures finalize, will de-escalate. Duration of treatment depends on the clinical picture, but likely 6 weeks of IV antibiotics. Monitor renal function and for drug toxicity and dose-adjust antibiotics. dining services director to assist with discharge planning. Okay to consult VAT prior to discharge for IV line placement. Will wait until final antibiotic regimen is decided. Qualifiers: Osteomyelitis type: unspecified type Osteomyelitis location: foot Laterality: right Qualified Code(s): M86.9 - Osteomyelitis, unspecified (3) Gas gangrene of foot Current Visit: Yes Status: Acute Causative organism unclear. Status post I & D 12/15/[address] Cantu. Await cultures. Antibiotics as above. (4) Cellulitis and abscess of foot Current Visit: No Status: Acute Location: Right foot. Causative organism unclear. Etiology unclear. The patient does not recall injury or trauma or previous ulcer. Antibiotics as above. (5) Acute kidney injury superimposed on CKD Current Visit: No Status: Acute Likely secondary to sepsis and dehydration from poor PO intake. Improved. Continue to trend. Dose-adjust antibiotics. Avoid nephrotoxins as able. (6) Diabetic foot ulcer associated with diabetes mellitus due to underlying condition Current Visit: No Status: Acute Location: Left foot. Secondary to previous trauma. Clinically does not appear infected. Wound care per the podiatry team. 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 HgbA1C 12.7% Blood sugars continue to run high. Recommend aggressive glucose monitoring and control to promote wound healing and prevent re-infection. Management per the hospitalist team. Qualifiers: Diabetes mellitus longwall foreman insulin use: with longwall foreman use Diabetes mellitus complication status: with skin complications Diabetes mellitus complication detail: with foot ulcer Qualified Code(s): E11.621 - Type 2 diabetes mellitus with foot ulcer; L97.509 - Non-pressure chronic ulcer of other part of unspecified foot with unspecified severity; Z79.4 - group home ( current) use of insulin - Subjective Interval history: Patient seen and examined. No acute events noted overnight. Patient sitting up on the side of the bed. Denies pain. Denies fevers, chills, or rigors. Denies chest pain or cough. Reports chronic OBEY, worse with exertion, that seems to be at baseline. Denies nausea, vomiting, diarrhea, or constipation. Reports BM this morning. Denies abdominal pain, urinary complaints, or appetite changes. Denies oral thrush or new skin lesions. Infect Dis PN-Objective Data - Labs CBC & Chem 7: 12/20/17 06:06 12/20/17 06:06 Labs: Laboratory Results - last 24 hr 12/17/17 12/19/17 12/19/17 19:43 16:24 20:32 WBC RBC Hgb Hct MCV MCH MCHC RDW Plt Count MPV Seg Neutrophils % Band Neutrophils % Lymphocytes % Monocytes % Eosinophils % Metamyelocytes % Myelocytes % Neutrophils # Lymphocytes # Monocytes # Eosinophils # Nucleated RBCs/100 WBC Toxic Granulation Platelet Estimate Sodium Potassium Chloride Carbon Dioxide BUN Creatinine Est GFR ( Amer) Est GFR (Non-Af Amer) BUN/Creatinine Ratio Glucose POC Glucose 323 H 299 H 312 H Calculated Osmolality Calcium 12/20/17 12/20/17 12/20/17 06:06 06:06 07:25 WBC 10.9 RBC 4.21 Hgb 10.6 L Hct 33.0 L MCV 78.4 L MCH 25.2 L MCHC 32.1 RDW 15.7 H Plt Count 317 MPV 9.0 L Seg Neutrophils % 68.0 Band Neutrophils % 3.0 Lymphocytes % 17.0 Monocytes % 6.0 Eosinophils % 4.0 Metamyelocytes % 1.0 H Myelocytes % 1.0 H Neutrophils # 7.7 Lymphocytes # 1.9 Monocytes # 0.7 Eosinophils # 0.4 Nucleated RBCs/100 WBC 0.4 H Toxic Granulation Present A Platelet Estimate Normal Sodium 134 L Potassium 4.5 Chloride 106 Carbon Dioxide 22 L BUN 32 H Creatinine 1.47 H Est GFR ( Amer) > 60 Est GFR (Non-Af Amer) 50 L BUN/Creatinine Ratio 22 Glucose 95 POC Glucose 76 Calculated Osmolality 285 Calcium 8.9 12/20/17 12/20/17 10:03 11:05 WBC RBC Hgb Hct MCV MCH MCHC RDW Plt Count MPV Seg Neutrophils % Band Neutrophils % Lymphocytes % Monocytes % Eosinophils % Metamyelocytes % Myelocytes % Neutrophils # Lymphocytes # Monocytes # Eosinophils # Nucleated RBCs/100 WBC Toxic Granulation Platelet Estimate Sodium Potassium Chloride Carbon Dioxide BUN Creatinine Est GFR ( Amer) Est GFR (Non-Af Amer) BUN/Creatinine Ratio Glucose POC Glucose 222 H 269 H Calculated Osmolality Calcium Cultures: Cultures 12/19/17 01:00 Wound Culture - Preliminary Right Foot No growth. 12/19/17 01:00 Gram Stain - Final Right Foot Exam - Constitutional Vitals: Temp Pulse Resp BP Pulse Ox 98.2 F 75 16 133/83 97 12/20/17 11:03 12/20/17 11:03 12/20/17 11:03 12/20/17 11:03 12/20/17 11:03 General appearance: cooperative, morbidly obese, no acute distress - Head Head exam: Present: atraumatic, normal inspection, normocephalic - Eye Eye exam: Present: EOMI, normal appearance, PERRL Pupils: Present: normal accommodation - ENT ENT exam: Present: mucous membranes moist - Neck Neck exam: Present: normal inspection - Respiratory Respiratory exam: Present: CTAB. Absent: rales, respiratory distress, rhonchi, wheezes - Cardiovascular Cardiovascular exam: Present: irregular rhythm. Absent: tachycardia - GI/Abdominal GI/Abdominal exam: Present: distended (obese), normal bowel sounds, soft. Absent: tenderness - Extremities Exam Extremities exam: Absent: joint swelling, pedal edema, tenderness Additional comments: Right foot post-op dressing with wound VAC noted. No drainage noted in the canister. Left foot guaze dressing C/D/I. - Neurological Exam Neurological exam: Present: alert, oriented X3, no focal deficits - Psychiatric Psychiatric exam: Present: normal affect, normal mood - Skin Skin exam: Present: dry, intact, normal color, warm Consult Discharge Plan - Plan Referrals: Marissa Pitts, ANDREW [Primary Care Provider] - - Attending Attestation I examined this patient and my medical decision-making was reviewed with the Resident Physician. I agree with the documented findings, disposition and treatment plan as described except to the extent set forth below.
--- NOTE | 2017-12-20 16:31 | Podiatry Progress Note ---
Date of Encounter: 12/20/17 Time of Encounter: 08:00 - Assessment and Plan (1) Diabetic foot ulcer associated with diabetes mellitus due to underlying condition Current Visit: No Status: Acute Large diabetic ulceration, grade 3 with abscess formation and possible gas within the tissue PLAN: evaluated at bedside Wound vac removed Wound cleansed with saline, pat dry Wound clean, appears to be healing without complication, minimal signs of continued infection Skin prep applied, skin draped with tegaderm for protection Small black simplace sponge applied and tracked to top of foot, applied to 125mmHg suction Good seal with minimal leak noted Also changed dressing to left foot, wound clean, healing and shallow, no appearance of infection Patient will need PT/OT consult for placement to ECF MWF change to wound vac, will need changed per nursing staff on Monday if patient remains inpatient Continue with IV antibiotics per ID recommendations, vanc, cefepime and flagyl, await intra op cultures NTD Patient states he plans to go to [facility] for dressing changes, he does not have family at home to care for him- SW following Minimal protective weight bearing to heel c/w elevation Medical management per internal Will need to be followed in wound care clinic with 1 week after discharge. Qualifiers: Diabetic foot ulcer location: midfoot Laterality: left Non-pressure ulcer stage: with necrosis of bone Qualified Code(s): E08.621 - Diabetes mellitus due to underlying condition with foot ulcer; L97.424 - Non-pressure chronic ulcer of left heel and midfoot with necrosis of bone Subjective Interval history: Patient is s/p incision and drainage, open 5th ray amputation, right by Dr. Cantu for gas gangrene on 12/15 with subsequent washout on 12/18 with intraop cultures obtained. Patient resting in bed, wound vac intact and running, no c/ o pain, no c/o fever or chills. Patient states he seems to be doing fine right now. No complaints of calf pain or sob Objective - Vital Signs Vital Signs: Vital Signs Temp Pulse Resp BP Pulse Ox 12/20/17 14:48 98.8 F 97 16 164/89 98 12/20/17 11:03 98.2 F 75 16 133/83 97 12/20/17 10:01 163/89 12/20/17 07:18 97.6 F 100 16 173/90 97 12/20/17 04:35 98.1 F 57 16 149/71 98 12/19/17 22:58 97 12/19/17 19:21 98.1 F 74 16 151/78 97 Intake and Output 12/20/17 12/20/17 12/20/17 07:59 15:59 23:59 Intake Total 120 / 120 240 / 240 Output Total 750 / 750 750 / 750 Balance -630 / -630 -510 / -510 Intake: Oral 120 / 120 240 / 240 Output: Urine 750 / 750 750 / 750 Other: Weight 132.6 kg Blood Glucose* 76 269 Patient Weight 12/20/17 23:59 Weight 132.6 kg - Exam Exam: General Examination: CONSTITUTIONAL: Alert, oriented, in no acute distress, non-toxic. EXTREMITIES: CFT 3 seconds all toes. Edema +1 and pedal pulses palpable. No calf pain with manual compression SKIN: Surgically created wound noted to lateral/plantar aspect of right foot, appears to be healing. 100% healthy granulation tissue noted. 4.5cmx4.5cmx0.6cm depth, scant bloody drainage. No surrounding edema, warmth, tenderness or erythema. Improvement noted from initial assessment. No odor. No fluctuance. No purulent drainage Ulceration to left sub mt head #3 healing, very superficial- 0.2cmx0.2cm without depth, scant yellow fibrous base 50%/50%granulation tissue- no clinical signs of infection NEUROLOGIC: Minimal sensation to light or moderate touch - Lab Result Diagrams: 12/20/17 06:06 12/20/17 06:06 Labs: Abnormal lab results Hgb 10.6 g/dL (12.9-16.9) L 12/20/17 06:06 Hct 33.0 % (37.5-50.1) L 12/20/17 06:06 MCV 78.4 fL (83.0-100.0) L 12/20/17 06:06 MCH 25.2 pg (28.0-33.3) L 12/20/17 06:06 RDW 15.7 % (11.5-14.5) H 12/20/17 06:06 MPV 9.0 fL (9.4-12.4) L 12/20/17 06:06 Immature Gran % 5.5 % (0-4) H 12/19/17 04:39 Metamyelocytes % 1.0 % (0) H 12/20/17 06:06 Myelocytes % 1.0 % (0) H 12/20/17 06:06 Nucleated RBCs/100 WBC 0.4 /100 WBC (0) H 12/20/17 06:06 Toxic Granulation Present (Not Present) A 12/20/17 06:06 ESR >= 130 mm/hr (0-10) H 12/16/17 11:30 Sodium 134 mEq/L (136-145) L 12/20/17 06:06 Carbon Dioxide 22 mEq/L (23-29) L 12/20/17 06:06 BUN 32 mg/dL (6-20) H 12/20/17 06:06 Creatinine 1.47 mg/dL (0.70-1.30) H 12/20/17 06:06 Est GFR (Non-Af Amer) 50 (> 60) L 12/20/17 06:06 POC Glucose 269 mg/dL (70-99) H 12/20/17 11:05 C-Reactive Protein 247 mg/L (Less than 10) H 12/16/17 11:30 Microbiology, Last 48 Hours 12/19/17 01:00 Wound Culture - Preliminary Right Foot No growth. 12/19/17 01:00 Gram Stain - Final Right Foot Consult Discharge Plan - Plan Referrals: Marissa Pitts CNP [Primary Care Provider] -
--- NOTE | 2017-12-20 17:22 | Internal Med Progress Note ---
Date of Encounter: 12/20/17 Time of Encounter: 17:19 - Assessment and plan (1) Atrial fibrillation Current Visit: Yes Status: Chronic Assessment and plan: continue CCB and beta ana laura; Continue Xarelto Rate under control Qualifiers: Atrial fibrillation type: paroxysmal Qualified Code(s): I48.0 - Paroxysmal atrial fibrillation (2) CAD (coronary artery disease) Current Visit: Yes Status: Chronic Assessment and plan: ASA, statin, beta ana laura, ACEI, nitrate; Qualifiers: Coronary Disease-Associated Artery/Lesion type: [place] artery [place] vs. transplanted heart: [place] heart Associated angina: without angina Qualified Code(s): I25.10 - Atherosclerotic heart disease of [place] coronary artery without angina pectoris (3) Chronic kidney disease, stage III (moderate) Current Visit: Yes Status: Chronic Assessment and plan: Improved, today is 1.4, which baselineis usually 1.5-2.0 (4) Type 2 diabetes mellitus Current Visit: Yes Status: Chronic Assessment and plan: blood sugars better controlled, but still high; Levemir was increased with gradual improvement but goal to be <180. continue SSI; Acuucheck blood glucose monitoring with basal bolus insulin regimen Levemir was increased yesterday because of still elevated glucose I did see soda in the room, patient states it was not for him Glucose did go borderline low for patient today will resume Levemir 90 HS and 40 in AM. Diabetic diet Qualifiers: Diabetes mellitus middle or intermediate [employer] principal insulin use: with senior living use Diabetes mellitus complication status: with skin complications Diabetes mellitus complication detail: with foot ulcer Qualified Code(s): E11.621 - Type 2 diabetes mellitus with foot ulcer; L97.509 - Non-pressure chronic ulcer of other part of unspecified foot with unspecified severity; Z79.4 - nursing home ( current) use of insulin (5) Hypertension Current Visit: Yes Status: Chronic Assessment and plan: Continue Cardizem, metoprolol 25 mg BID, Lisinopril was increased to 20 mg daily, will continue to monitor Continue PRN IV Hydralazine; May need increase will evaluate for tomorrow Qualifiers: Hypertension type: essential hypertension Qualified Code(s): I10 - Essential (primary) hypertension (6) Gas gangrene of foot Current Visit: Yes Status: Acute Assessment and plan: underwent right 5th ray partial amputation on 12/15; improving leukocytosis; postop plan per primary team; pain control with PRN Oxycodone; cannot find aerobic cultures from OR; likely will need senior living IV antibiotics; ID consulted; (7) Abscess of right foot Current Visit: Yes Status: Acute Assessment and plan: continue management as per primary team (8) Morbid obesity Current Visit: Yes Status: Chronic - Time Spent With Patient Total time spent is greater than 50% in coordination of care (as documented) at patient's floor/unit and/or counseling patient: - Subjective Interval history: Patient complains of headache today. Denies CP, SOB, n/v, palpitations. - Constitutional Vitals: Temp Pulse Resp BP Pulse Ox 98.8 F 97 16 164/89 98 12/20/17 14:48 12/20/17 14:48 12/20/17 14:48 12/20/17 14:48 12/20/17 14:48 General appearance: Present: A&O X 3, answers questions appropriately - Head Head exam: Present: atraumatic, normocephalic - Eye Eye exam: Present: PERRL, conjuntiva pink, sclera anicteric Pupils: Present: PERRL - Neck Neck exam general surgery: Present: supple, trachea midline. Absent: lymphadenopathy - Respiratory Respiratory exam: Present: CTAB. Absent: accessory muscle use, rales, rhonchi, wheezes - Cardiovascular Cardiovascular exam: Present: RRR, +S1, +S2. Absent: diastolic murmur, gallop, rubs, systolic murmur - GI/Abdominal GI/Abdominal exam: Present: normal bowel sounds, soft, no peritoneal signs. Absent: distended, tenderness - Extremities Exam Extremities exam: Present: pedal edema, warm, radial pulses palpable and symmetrical. Absent: calf tenderness, cyanotic - Neurological Exam Neurological exam: Present: CN II-XII intact, oriented X3, no focal deficits. Absent: pronater drift, facial droop, speech deficit - Skin Skin exam: Present: dry, intact Internal Medicine: Result - Labs CBC & Chem 7: 12/20/17 06:06 12/20/17 06:06 Labs: Short CBC 12/20/17 Range/Units 06:06 WBC 10.9 (4.3-11.1) K/mcL Hgb 10.6 L (12.9-16.9) g/dL Hct 33.0 L (37.5-50.1) % Plt Count 317 (140-400) K/mcL Neutrophils # 7.7 (1.6-8.9) K/mcL BMP 12/20/17 06:06 Sodium 134 L Potassium 4.5 Chloride 106 Carbon Dioxide 22 L BUN 32 H Creatinine 1.47 H Glucose 95 Calcium 8.9 Consult Discharge Plan - Plan Referrals: Marissa Pitts, [employer] [Primary Care Provider] -
[2017-12-20] MEDS: Acetaminophen 325 MG TABLET PO PRN (17:56)
[2017-12-20] MEDS: Insulin DETEMIR 100 UNIT/ML X5UNITS SQ SCH (21:11)
[2017-12-21] MEDS: Ascorbic Acid 500 MG TABLET PO SCH (05:44)
[2017-12-21] MEDS: *HR* OxyCODONE Immed Rel 5 MG TABLET PO PRN ×2 (05:46→19:40)
[2017-12-21] MEDS: Insulin LISPRO 300 UNITS/3 ML VIAL SQ SCH ×4 (07:47→20:26)
[2017-12-21] MEDS: Aspirin Enteric Coated 81 MG Tablet PO SCH (07:49)
[2017-12-21] MEDS: Loratadine 10 MG TABLET PO SCH (07:49)
[2017-12-21] MEDS: Insulin DETEMIR 100 UNIT/ML X5UNITS SQ SCH ×2 (07:49→20:27)
[2017-12-21] MEDS: Diltiazem CD (24hr) 120 MG CAPSULE PO SCH (07:49)
[2017-12-21] MEDS: Gentamicin Oint 15 GM TUBE TP SCH (07:50)
[2017-12-21] MEDS: Lisinopril 20 MG TABLET PO SCH (07:50)
[2017-12-21] MEDS: metroNIDAZOLE 500 MG TABLET PO SCH ×3 (07:50→20:26)
[2017-12-21] MEDS: Isosorbide MONOnitrate (24 HR) 60 MG TAB.ER.24H PO SCH (07:50)
[2017-12-21] MEDS: Furosemide 40 MG TABLET PO SCH (07:50)
[2017-12-21 08:15] LABS: Basophils # 0.1 K/mcL (0.0-0.2); Basophils % 0.5 %; Eosinophils # 0.4 K/mcL (0.0-0.6); Eosinophils % 4.3 %; Hematocrit 33.5 % (37.5-50.1); Hemoglobin 10.5 g/dL (12.9-16.9); Immature Granulocytes % 4.5 % (0-4); Lymphocytes # 1.1 K/mcL (0.6-4.6); Lymphocytes % 10.9 %; Mean Corpuscular HGB Conc 31.3 g/dL (31.6-35.5); Mean Corpuscular Hemoglobin 24.4 pg (28.0-33.3); Mean Corpuscular Volume 77.9 fL (83.0-100.0); Mean Platelet Volume 8.8 fL (9.4-12.4); Monocytes # 0.6 K/mcL (0.0-1.3); Monocytes % 6.3 %; Neutrophils # 7.5 K/mcL (1.6-8.9); Platelet Count 321 K/mcL (140-400); Red Cell Distribution Width 15.7 % (11.5-14.5); Segmented Neutrophils % 73.5 %
[2017-12-21 10:09] LABS: BUN/Creatinine Ratio 20 (6-26); Blood Urea Nitrogen 29 mg/dL (6-20); Calcium 9.1 mg/dL (8.6-10.3); Carbon Dioxide 22 mEq/L (23-29); Chloride 104 mEq/L (98-107); Glucose 176 mg/dL (70-105); Osmolality,Calculated 284 (280-300); Potassium 4.8 mEq/L (3.5-5.1); Sodium 132 mEq/L (136-145); eGFR For African Americans > 60 (> 60); eGFR For Non-African Americans 51 (> 60)
--- NOTE | 2017-12-21 10:14 | Internal Med Progress Note ---
Date of Encounter: 12/21/17 Time of Encounter: 09:00 - Assessment and plan (1) Abscess of right foot Current Visit: Yes Status: Acute Assessment and plan: continue management as per primary team (2) Atrial fibrillation Current Visit: Yes Status: Chronic Assessment and plan: Stable continue CCB and beta ana laura; Continue Xarelto Rate under control Qualifiers: Atrial fibrillation type: paroxysmal Qualified Code(s): I48.0 - Paroxysmal atrial fibrillation (3) CAD (coronary artery disease) Current Visit: Yes Status: Chronic Assessment and plan: ASA, statin, beta ana laura, ACEI, nitrate; Qualifiers: Coronary Disease-Associated Artery/Lesion type: [place] artery [place] vs. transplanted heart: [place] heart Associated angina: without angina Qualified Code(s): I25.10 - Atherosclerotic heart disease of [place] coronary artery without angina pectoris (4) Chronic kidney disease, stage III (moderate) Current Visit: Yes Status: Chronic Assessment and plan: Creatinine stable at 1.4 (5) Type 2 diabetes mellitus Current Visit: Yes Status: Chronic Assessment and plan: Levemir has been adjusted, currently 40 units in AM and 90 units HS. continue ISS and diabetic diet Qualifiers: Diabetes mellitus prison insulin use: with predatory animal exterminator use Diabetes mellitus complication status: with skin complications Diabetes mellitus complication detail: with foot ulcer Qualified Code(s): E11.621 - Type 2 diabetes mellitus with foot ulcer; L97.509 - Non-pressure chronic ulcer of other part of unspecified foot with unspecified severity; Z79.4 - termite control technician ( current) use of insulin (6) Hypertension Current Visit: Yes Status: Chronic Assessment and plan: Continue Cardizem, metoprolol 25 mg BID, Lisinopril was increased to 20 mg daily, it is now under better control Continue PRN IV Hydralazine; Qualifiers: Hypertension type: essential hypertension Qualified Code(s): I10 - Essential (primary) hypertension (7) Gas gangrene of foot Current Visit: Yes Status: Acute Assessment and plan: underwent right 5th ray partial amputation on 12/15; improving leukocytosis; postop plan per primary team; pain control with PRN Oxycodone; cannot find aerobic cultures from OR; likely will need predatory animal exterminator IV antibiotics; ID consulted; (8) Morbid obesity Current Visit: Yes Status: Chronic - Time Spent With Patient Total time spent is greater than 50% in coordination of care (as documented) at patient's floor/unit and/or counseling patient: - Subjective Interval history: Patient no longer has headache but does have some nausea that has resolved. He did eat all breakfast without issue. Denies cp, sob, fevers/chills, vomiting, diarrhea. - Constitutional Vitals: Temp Pulse Resp BP Pulse Ox 98.0 F 81 16 158/88 99 12/21/17 07:22 12/21/17 07:22 12/21/17 07:22 12/21/17 07:22 12/21/17 08:29 General appearance: Present: A&O X 3, answers questions appropriately Exam: - Head Head exam: Present: atraumatic, normocephalic - Eye Eye exam: Present: PERRL, conjuntiva pink, sclera anicteric Pupils: Present: PERRL - Neck Neck exam general surgery: Present: supple, trachea midline. Absent: lymphadenopathy - Respiratory Respiratory exam: Present: CTAB. Absent: accessory muscle use, rales, rhonchi, wheezes - Cardiovascular Cardiovascular exam: Present: RRR, +S1, +S2. Absent: diastolic murmur, gallop, rubs, systolic murmur - GI/Abdominal GI/Abdominal exam: Present: normal bowel sounds, soft, no peritoneal signs. Absent: distended, tenderness - Extremities Exam Extremities exam: Present: pedal edema, warm, radial pulses palpable and symmetrical. Absent: calf tenderness, cyanotic - Neurological Exam Neurological exam: Present: CN II-XII intact, oriented X3, no focal deficits. Absent: pronater drift, facial droop, speech deficit - Skin Skin exam: Present: dry, intact Internal Medicine: Result - Labs CBC & Chem 7: 12/21/17 07:34 12/21/17 07:34 Labs: Short CBC 12/21/17 Range/Units 07:34 WBC 10.2 (4.3-11.1) K/mcL Hgb 10.5 L (12.9-16.9) g/dL Hct 33.5 L (37.5-50.1) % Plt Count 321 (140-400) K/mcL Neutrophils # 7.5 (1.6-8.9) K/mcL BMP 12/21/17 07:34 Sodium 132 L Potassium 4.8 Chloride 104 Carbon Dioxide 22 L BUN 29 H Creatinine 1.45 H Glucose 176 H Calcium 9.1 Consult Discharge Plan - Plan Referrals: Marissa Pitts CNP [Primary Care Provider] -
[2017-12-21] MEDS: Cefepime HCl 2,000 MG in Water for inj. (sterile) 20 ML 20 ML IVPB SCH ×2 (10:57→22:58)
[2017-12-21] MEDS: Ondansetron 4 MG/2 ML VIAL IVP PRN ×2 (10:58→22:59)
--- NOTE | 2017-12-21 11:19 | Infectious Disease Progress No ---
Date of Encounter: 12/21/17 Time of Encounter: 11:17 - Assessment and Plan (1) Sepsis Current Visit: Yes Status: Acute Severe sepsis: The patient had 3 SIRS criteria on admission plus BLANKA. Likely secondary to osteomyelitis and gas gangrene of the right foot. Improved. White blood cell count normal. He has been afebrile since admission. Tachycardia has resolved. Blood cultures drawn 12/13/17 are negative x 2 sets. Qualifiers: Sepsis type: sepsis due to unspecified organism Qualified Code(s): A41.9 - Sepsis, unspecified organism (2) Osteomyelitis Current Visit: No Status: Suspected Location: Right foot 5th metatarsal. Causative organism unclear. Swab culture positive for MSSA, but concern for polymicrobial infection given the extent of the infection. MRI of the foot showed subcutaneous gas with possible OM. ESR >130. CRP 247. Podiatry consulted and following. Status post I & D with partial 5th ray amputation 11/28/[address] Cantu. Operative note reviewed. Pus noted intra-op. Cultures and pathology are pending. I called and spoke with micro this morning. Apparently, the aerobic culture order was not placed after the patient's first surgery. Luckily, the specimen was still there and is able to be run and is positive for Enterococcus and GNR. The patient does have hardware in his foot. We will need to be aggressive with his antibiotics. Status post repeat washout with PRP graft application 12/19/[address] Cantu. Operative note reviewed. Wound care and activity restrictions per the podiatry team. Continue Vancomycin IV. Pharmacy to dose. Goal trough ~15. Continue Cefepime 2 grams IV Q12H. Continue flagyl 500mg PO TID. Once intra-op cultures finalize, will de-escalate. Duration of treatment depends on the clinical picture, but likely 6 weeks of IV antibiotics. Monitor renal function and for drug toxicity and dose-adjust antibiotics. dietary services manager to assist with discharge planning. Okay to consult VAT prior to discharge for IV line placement. Will wait until final antibiotic regimen is decided. Qualifiers: Osteomyelitis type: unspecified type Osteomyelitis location: foot Laterality: right Qualified Code(s): M86.9 - Osteomyelitis, unspecified (3) Gas gangrene of foot Current Visit: Yes Status: Acute Causative organism unclear. Status post I & D 12/15/[address] Cantu. Await cultures. Antibiotics as above. (4) Cellulitis and abscess of foot Current Visit: No Status: Acute Location: Right foot. Causative organism unclear. Etiology unclear. The patient does not recall injury or trauma or previous ulcer. Antibiotics as above. (5) Acute kidney injury superimposed on CKD Current Visit: No Status: Acute Likely secondary to sepsis and dehydration from poor PO intake. Improved. Continue to trend. Dose-adjust antibiotics. Avoid nephrotoxins as able. (6) Diabetic foot ulcer associated with diabetes mellitus due to underlying condition Current Visit: No Status: Acute Location: Left foot. Secondary to previous trauma. Clinically does not appear infected. Wound care per the podiatry team. 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 HgbA1C 12.7% Blood sugars continue to run high. Recommend aggressive glucose monitoring and control to promote wound healing and prevent re-infection. Management per the hospitalist team. 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 No acute events noted overnight. Patient sitting up in bed. Reports mild pain at the surgical site earlier this morning, relieved with PO pain medication. Denies fevers, chills, or rigors. Denies chest pain or cough. Reports chronic OBEY, worse with exertion, that seems to be at baseline. Denies nausea, vomiting, diarrhea, or constipation. Reports BM this morning. Denies abdominal pain, urinary complaints, or appetite changes. Denies oral thrush or new skin lesions. Infect Dis PN-Objective Data - Labs CBC & Chem 7: 12/21/17 07:34 12/21/17 07:34 Labs: Laboratory Results - last 24 hr 12/20/17 12/20/17 12/20/17 11:05 16:30 21:00 WBC RBC Hgb Hct MCV MCH MCHC RDW Plt Count MPV Immature Gran % Seg Neutrophils % Lymphocytes % Monocytes % Eosinophils % Basophils % Neutrophils # Lymphocytes # Monocytes # Eosinophils # Basophils # Sodium Potassium Chloride Carbon Dioxide BUN Creatinine Est GFR ( Amer) Est GFR (Non-Af Amer) BUN/Creatinine Ratio Glucose POC Glucose 269 H 247 H 239 H Calculated Osmolality Calcium 12/21/17 12/21/17 12/21/17 07:25 07:34 07:34 WBC 10.2 RBC 4.30 Hgb 10.5 L Hct 33.5 L MCV 77.9 L MCH 24.4 L MCHC 31.3 L RDW 15.7 H Plt Count 321 MPV 8.8 L Immature Gran % 4.5 H Seg Neutrophils % 73.5 Lymphocytes % 10.9 Monocytes % 6.3 Eosinophils % 4.3 Basophils % 0.5 Neutrophils # 7.5 Lymphocytes # 1.1 Monocytes # 0.6 Eosinophils # 0.4 Basophils # 0.1 Sodium 132 L Potassium 4.8 Chloride 104 Carbon Dioxide 22 L BUN 29 H Creatinine 1.45 H Est GFR ( Amer) > 60 Est GFR (Non-Af Amer) 51 L BUN/Creatinine Ratio 20 Glucose 176 H POC Glucose 169 H Calculated Osmolality 284 Calcium 9.1 12/21/17 09:27 WBC RBC Hgb Hct MCV MCH MCHC RDW Plt Count MPV Immature Gran % Seg Neutrophils % Lymphocytes % Monocytes % Eosinophils % Basophils % Neutrophils # Lymphocytes # Monocytes # Eosinophils # Basophils # Sodium Potassium Chloride Carbon Dioxide BUN Creatinine Est GFR ( Amer) Est GFR (Non-Af Amer) BUN/Creatinine Ratio Glucose POC Glucose 171 H Calculated Osmolality Calcium Cultures: Cultures 12/15/17 18:49 Surgical Biopsy Culture - Preliminary Right Foot Gram Negative Christopher Enterococcus species 12/19/17 01:00 Wound Culture - Preliminary Right Foot No growth. 12/19/17 01:00 Gram Stain - Final Right Foot Exam - Constitutional Vitals: Temp Pulse Resp BP Pulse Ox 98.0 F 81 16 158/88 99 12/21/17 07:22 12/21/17 07:22 12/21/17 07:22 12/21/17 07:22 12/21/17 08:29 General appearance: cooperative, morbidly obese, no acute distress - Head Head exam: Present: atraumatic, normal inspection, normocephalic - Eye Eye exam: Present: EOMI, normal appearance, PERRL Pupils: Present: normal accommodation - ENT ENT exam: Present: mucous membranes moist - Neck Neck exam: Present: normal inspection - Respiratory Respiratory exam: Present: CTAB. Absent: rales, respiratory distress, rhonchi, wheezes - Cardiovascular Cardiovascular exam: Present: irregular rhythm. Absent: tachycardia - GI/Abdominal GI/Abdominal exam: Present: distended (obese), normal bowel sounds, soft. Absent: tenderness - Extremities Exam Extremities exam: Absent: joint swelling, pedal edema, tenderness Additional comments: Bilateral foot dressings C/D/I. - Neurological Exam Neurological exam: Present: alert, oriented X3, no focal deficits - Psychiatric Psychiatric exam: Present: normal affect, normal mood - Skin Skin exam: Present: dry, intact, normal color, warm Consult Discharge Plan - Plan Referrals: Marissa Pitts CNP [Primary Care Provider] - - Attending Attestation I examined this patient and my medical decision-making was reviewed with the Resident Physician. I agree with the documented findings, disposition and treatment plan as described except to the extent set forth below.
[2017-12-21] MEDS ORDERED: *HR* Rivaroxaban 15 MG TABLET PO SCH (17:00)
--- NOTE | 2017-12-21 18:15 | Podiatry Progress Note ---
Date of Encounter: 12/21/17 Time of Encounter: 12:30 - Assessment and Plan (1) Diabetic foot ulcer associated with diabetes mellitus due to underlying condition Current Visit: No Status: Acute Qualifiers: Diabetic foot ulcer location: midfoot Laterality: left Non-pressure ulcer stage: with necrosis of bone Qualified Code(s): E08.621 - Diabetes mellitus due to underlying condition with foot ulcer; L97.424 - Non-pressure chronic ulcer of left heel and midfoot with necrosis of bone (2) Type 2 diabetes mellitus Current Visit: Yes Status: Chronic Qualifiers: Diabetes mellitus long-term insulin use: with long term acute care registered nurse use Diabetes mellitus complication status: with skin complications Diabetes mellitus complication detail: with foot ulcer Qualified Code(s): E11.621 - Type 2 diabetes mellitus with foot ulcer; L97.509 - Non-pressure chronic ulcer of other part of unspecified foot with unspecified severity; 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 Cantu for gas gangrene and s/p washout, excisional debridement with application of a wound vac right foot. WBC: 10.2, Temp: 98.2 Wound cultures: no growth isolated Surgical biopsy culture: prelim- Gram Negative Christopher, Enterococcus species. Plan: Currently receiving Vancomycin IV, Cefepime 2 grams IV Q12H and flagyl 500mg PO TID. Patient will most likely require 6 weeks of IV antibiotics. ID managing IV antibiotic therapy - awaiting final wound cultures to determine final antibiotic regimen. Accepted at [facility]. Requires daily dressing changes to left foot, wound vac to right foot with a M-W - dressing change schedule. Follow up with Dr. Cantu in wound care center one week after discharge from hospital. Hospitalist managing comorbidities. Subjective Interval history: Patient is s/p incision and drainage, open 5th ray amputation, right by Dr. Cantu for gas gangrene and a washout with excisional debridement with application of a wound vac. Patient is lying in bed with dressings intact to both feet. Wound vac intact to the right foot. Patient has been accepted at [facility] and awaiting wound cultures to finalize. Patient states he did have nausea this morning. Patient denies cp, sob, pain, fever, chills, or calf pain. Objective - Vital Signs Vital Signs: Vital Signs Temp Pulse Resp BP Pulse Ox 12/21/17 15:36 97.8 F 98 16 164/79 97 12/21/17 11:31 98.2 F 78 16 152/68 99 12/21/17 08:29 99 12/21/17 07:22 98.0 F 81 16 158/88 99 12/21/17 04:35 98.2 F 97 15 151/81 99 12/20/17 23:22 98.1 F 65 15 138/77 99 12/20/17 18:55 97.8 F 88 15 163/84 98 Intake and Output 12/21/17 12/21/17 12/21/17 07:59 15:59 23:59 Intake Total 20 / 20 360 / 360 250 / 250 Output Total 890 / 890 1100 / 1100 250 / 250 Balance -870 / -870 -740 / -740 0 / 0 Intake: IV Fluids / 20 20 / 20 250 / 250 Maxipime 2,000 MG In Water for 20 / 20 inj. (sterile) 20 ML @ 300 mls/ hr IVPB Q12H [facility] Rx#:[id number] Vancocin 1,500 MG In 0.9 % 250 / 250 Sodium Chloride 250 ML @ 166.67 mls/hr IVPB Q24H [facility] Rx#: [id number] Oral 0 / 0 340 / 340 Output: Urine 890 / 890 1100 / 1100 250 / 250 Wound Drainage 0 / 0 0 / 0 Right Foot 0 / 0 0 / 0 Other: Meal Lunch Percent of Meal Consumed 85% Stool Size Small Stool Consistency soft Stool Color Brown Weight 132.5 kg Blood Glucose* 169 240 237 Patient Weight 12/21/17 23:59 Weight 132.5 kg - Exam Exam: General: A&O x3, calm and cooperative. Vascular: toes are pink warm and dry, no calf pain with manual compression. S/p: dressings dry and intact to both feet, no strikethrough drainage. Wound vac intact to right foot connected to 125 mmhg low continuous suction. No drainage observed to canister. - Lab Result Diagrams: 12/21/17 07:34 12/21/17 07:34 Labs: Abnormal lab results Hgb 10.5 g/dL (12.9-16.9) L 12/21/17 07:34 Hct 33.5 % (37.5-50.1) L 12/21/17 07:34 MCV 77.9 fL (83.0-100.0) L 12/21/17 07:34 MCH 24.4 pg (28.0-33.3) L 12/21/17 07:34 MCHC 31.3 g/dL (31.6-35.5) L 12/21/17 07:34 RDW 15.7 % (11.5-14.5) H 12/21/17 07:34 MPV 8.8 fL (9.4-12.4) L 12/21/17 07:34 Immature Gran % 4.5 % (0-4) H 12/21/17 07:34 Metamyelocytes % 1.0 % (0) H 12/20/17 06:06 Myelocytes % 1.0 % (0) H 12/20/17 06:06 Nucleated RBCs/100 WBC 0.4 /100 WBC (0) H 12/20/17 06:06 Toxic Granulation Present (Not Present) A 12/20/17 06:06 ESR >= 130 mm/hr (0-10) H 12/16/17 11:30 Sodium 132 mEq/L (136-145) L 12/21/17 07:34 Carbon Dioxide 22 mEq/L (23-29) L 12/21/17 07:34 BUN 29 mg/dL (6-20) H 12/21/17 07:34 Creatinine 1.45 mg/dL (0.70-1.30) H 12/21/17 07:34 Est GFR (Non-Af Amer) 51 (> 60) L 12/21/17 07:34 Glucose 176 mg/dL (70-105) H 12/21/17 07:34 POC Glucose 237 mg/dL (70-99) H 12/21/17 16:21 C-Reactive Protein 247 mg/L (Less than 10) H 12/16/17 11:30 Vancomycin Trough 18 mcg/mL (5-10) H 12/21/17 11:34 Microbiology, Last 48 Hours 12/15/17 18:49 Surgical Biopsy Culture - Preliminary Right Foot Gram Negative Christopher Enterococcus species 12/19/17 01:00 Wound Culture - Preliminary Right Foot No growth. Consult Discharge Plan - Plan Referrals: Marissa Pitts, ANDREW [Primary Care Provider] -
[2017-12-22] MEDS: Ascorbic Acid 500 MG TABLET PO SCH (05:23)
[2017-12-22 06:24] LABS: Basophils % 0.4 %; Eosinophils # 0.5 K/mcL (0.0-0.6); Eosinophils % 4.4 %; Hematocrit 32.9 % (37.5-50.1); Hemoglobin 10.2 g/dL (12.9-16.9); Lymphocytes # 1.4 K/mcL (0.6-4.6); Lymphocytes % 13.6 %; Mean Corpuscular Hemoglobin 24.4 pg (28.0-33.3); Mean Corpuscular Volume 78.7 fL (83.0-100.0); Monocytes # 0.6 K/mcL (0.0-1.3); Neutrophils # 7.6 K/mcL (1.6-8.9); Platelet Count 312 K/mcL (140-400); Red Blood Count 4.18 M/mcL (4.19-5.50); Red Cell Distribution Width 15.9 % (11.5-14.5); Segmented Neutrophils % 71.6 %
[2017-12-22 06:38] LABS: Calcium 9.1 mg/dL (8.6-10.3); Potassium 5.3 mEq/L (3.5-5.1)
--- NOTE | 2017-12-22 08:09 | Physician Discharge Referral ---
ExtendedCare Referral Info Transfer To: extended care facility Provider in Charge after Transfer: PCP, Other (Storts) Institutional Level of Care: Skilled - Diagnosis (1) Gas gangrene of foot Priority: Primary Status: Acute (2) Abscess of right foot Priority: Secondary Status: Acute - Transfer Medications Home Medications: Aspirin [Lo-Dose Aspirin EC] 81 mg PO QAM 03/11/16 [History] Atorvastatin [Lipitor] 40 mg PO HS 03/11/16 [History] Insulin ASPART [Novolog Flexpen] 20 - 33 unit SQ TIDWM 03/11/16 [History] Albuterol Sulfate [Ventolin Hfa] 2 puff IH Q4H PRN 06/07/16 [History] Diltiazem CD (24hr) [Cardizem CD] 120 mg PO DAILY #30 tab 03/07/17 [Rx] Isosorbide MONOnitrate (24 HR) [Imdur] 30 mg PO DAILY #30 tab 03/07/17 [Rx] Rivaroxaban [Xarelto] 15 mg PO DAILY 04/22/17 [History] Cetirizine HCl [Zyrtec] 10 mg PO DAILY 05/08/17 [History] Ascorbic Acid [Vitamin C] 500 mg PO 0630 #30 tablet 11/03/17 [Rx] Ferrous Sulfate 325 mg PO 0630 #30 tablet 11/03/17 [Rx] Furosemide [Lasix] 40 mg PO DAILY #0 11/03/17 [Rx] Insulin Glargine [Lantus] 70 unit SQ HS 12/15/17 [History] Polyethylene Glycol 3350 [MiraLAX] 17 gm PO DAILY PRN 12/15/17 [History] Collagenase Oint [Santyl] 1 appl TP DAILY 12/16/17 [History] Insulin Glargine,Hum.rec.anlog [Lantus Solostar] 20 units SQ QAM 12/16/17 [ History] cloNIDine HCl [CloNIDine HCl] 0.1 mg PO TID 12/16/17 [History] Allergies/Adverse Reactions: 3 Allergy/AdvReac Type Severity Reaction Status Date / Time No Known Allergies Allergy Verified 12/16/17 12:45 - Respiratory Orders Smoking Cessation: Smoking cessation has been advised. For more information, call the [place] Tobacco Quit Line at 9-408-GVPR-NOW. - Advance Directives Code Status: Full Code - Rehabiliation Orders Rehab Potential: Fair Other: partial weight bearing right foot on heel - Treatments List/Other: wound vac on right foot with adaptic and black foam changed three times per week , set on 125mm Hg. IV antibiotics left foot wound care with santyl applied nickel thick to wound, saline, 4x4 gauze, kerlix change daily Follow up in wound care center on the week after discharge with Dr. Cantu - Diet Orders No Concentrated Sweets CERTIFICATION: I certify that the transfer of the above named patient to an Extended Care Facility is necessary for the continuing treatment of the diagnosis listed. The above information is true and accurate reflection of patient's current condition. Confidential - Redisclosure prohibited without a patient's written consent.
[2017-12-22] MEDS: Insulin LISPRO 300 UNITS/3 ML VIAL SQ SCH ×2 (08:12→12:18)
[2017-12-22] MEDS: Aspirin Enteric Coated 81 MG Tablet PO SCH (09:52)
--- NOTE | 2017-12-22 09:52 | Infectious Disease Progress No ---
Date of Encounter: 12/22/17 Time of Encounter: 09:49 - Assessment and Plan (1) Sepsis Current Visit: Yes Status: Acute Severe sepsis: The patient had 3 SIRS criteria on admission plus BLANKA. Likely secondary to osteomyelitis and gas gangrene of the right foot. Resolved. White blood cell count normal. He has been afebrile since admission. Tachycardia has resolved. Blood cultures drawn 12/13/17 are negative x 2 sets. Qualifiers: Sepsis type: sepsis due to unspecified organism Qualified Code(s): A41.9 - Sepsis, unspecified organism (2) Osteomyelitis Current Visit: No Status: Suspected Location: Right foot 5th metatarsal. Causative organism Enterococcus, E. coli, and MSSA. MRI of the foot showed subcutaneous gas with possible OM. ESR >130. CRP 247. Podiatry consulted and following. Status post I & D with partial 5th ray amputation 11/28/[address] Cantu. Operative note reviewed. Pus noted intra-op. Cultures and pathology are pending. I called and spoke with micro this morning. Apparently, the aerobic culture order was not placed after the patient's first surgery. Luckily, the specimen was still there and is able to be run and is positive for Enterococcus and E. coli. The patient does have hardware in his foot. We will need to be aggressive with his antibiotics. Status post repeat washout with PRP graft application 12/19/[address] Cantu. Operative note reviewed. Wound care and activity restrictions per the podiatry team. Discontinue Vanc, Cefepime, and Flagyl. Start Unasyn 3 grams IV Q6H. Duration of treatment depends on the clinical picture, but likely 6 weeks of IV antibiotics. Monitor renal function and for drug toxicity and dose-adjust antibiotics. assessment services manager to assist with discharge planning. Okay to consult VAT prior to discharge for IV line placement. Will need weekly CBC, BUN/Cr, ESR, CRP. Will need weekly IV care. Follow up with ID 01/09/18 at 0920. Qualifiers: Osteomyelitis type: unspecified type Osteomyelitis location: foot Laterality: right Qualified Code(s): M86.9 - Osteomyelitis, unspecified (3) Gas gangrene of foot Current Visit: Yes Status: Acute Causative organism as above. Status post I & D 12/15/[address] Cantu. Antibiotics as above. (4) Cellulitis and abscess of foot Current Visit: No Status: Acute Location: Right foot. Causative organism unclear. Etiology unclear. The patient does not recall injury or trauma or previous ulcer. Antibiotics as above. (5) Acute kidney injury superimposed on CKD Current Visit: No Status: Acute Likely secondary to sepsis and dehydration from poor PO intake. Improved. Continue to trend. Dose-adjust antibiotics. Avoid nephrotoxins as able. (6) Diabetic foot ulcer associated with diabetes mellitus due to underlying condition Current Visit: No Status: Acute Location: Left foot. Secondary to previous trauma. Clinically does not appear infected. Wound care per the podiatry team. 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 HgbA1C 12.7% Blood sugars continue to run high. Recommend aggressive glucose monitoring and control to promote wound healing and prevent re-infection. Management per the hospitalist team. 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 No acute events noted overnight. Patient sitting up in bed eating breakfast. Denies pain. Denies fevers, chills, or rigors. Denies chest pain or cough. Reports chronic OBEY, worse with exertion, that seems to be at baseline. Denies nausea, vomiting, diarrhea, or constipation. Reports BM this morning. Denies abdominal pain, urinary complaints, or appetite changes. Denies oral thrush or new skin lesions. Infect Dis PN-Objective Data - Labs CBC & Chem 7: 12/22/17 05:41 12/22/17 05:41 Labs: Laboratory Results - last 24 hr 12/21/17 12/21/17 12/21/17 07:34 11:33 11:34 WBC RBC Hgb Hct MCV MCH MCHC RDW Plt Count MPV Immature Gran % Seg Neutrophils % Lymphocytes % Monocytes % Eosinophils % Basophils % Neutrophils # Lymphocytes # Monocytes # Eosinophils # Basophils # Sodium 132 L Potassium 4.8 Chloride 104 Carbon Dioxide 22 L BUN 29 H Creatinine 1.45 H Est GFR ( Amer) > 60 Est GFR (Non-Af Amer) 51 L BUN/Creatinine Ratio 20 Glucose 176 H POC Glucose 240 H Calculated Osmolality 284 Calcium 9.1 Vancomycin Trough 18 H 12/21/17 12/21/17 12/21/17 16:21 20:24 22:43 WBC RBC Hgb Hct MCV MCH MCHC RDW Plt Count MPV Immature Gran % Seg Neutrophils % Lymphocytes % Monocytes % Eosinophils % Basophils % Neutrophils # Lymphocytes # Monocytes # Eosinophils # Basophils # Sodium Potassium Chloride Carbon Dioxide BUN Creatinine Est GFR ( Amer) Est GFR (Non-Af Amer) BUN/Creatinine Ratio Glucose POC Glucose 237 H 221 H 194 H Calculated Osmolality Calcium Vancomycin Trough 12/22/17 12/22/17 12/22/17 05:41 05:41 07:39 WBC 10.6 RBC 4.18 L Hgb 10.2 L Hct 32.9 L MCV 78.7 L MCH 24.4 L MCHC 31.0 L RDW 15.9 H Plt Count 312 MPV 9.0 L Immature Gran % 4.0 Seg Neutrophils % 71.6 Lymphocytes % 13.6 Monocytes % 6.0 Eosinophils % 4.4 Basophils % 0.4 Neutrophils # 7.6 Lymphocytes # 1.4 Monocytes # 0.6 Eosinophils # 0.5 Basophils # 0.0 Sodium 130 L Potassium 5.3 H Chloride 104 Carbon Dioxide 22 L BUN 34 H Creatinine 1.55 H Est GFR ( Amer) 57 L Est GFR (Non-Af Amer) 47 L BUN/Creatinine Ratio 22 Glucose 212 H POC Glucose 154 H Calculated Osmolality 284 Calcium 9.1 Vancomycin Trough Cultures: Cultures 12/20/17 11:09 Blood Culture - Preliminary Peripheral Venipuncture No growth. 12/20/17 11:00 Blood Culture - Preliminary Peripheral Venipuncture No growth. 12/15/17 18:49 Surgical Biopsy Culture - Final Right Foot Escherichia coli Enterococcus species 12/19/17 01:00 Wound Culture - Final Right Foot No growth. 12/19/17 01:00 Gram Stain - Final Right Foot Exam - Constitutional Vitals: Temp Pulse Resp BP Pulse Ox 97.8 F 70 16 153/89 98 12/22/17 08:22 12/22/17 08:22 12/22/17 08:22 12/22/17 08:22 12/22/17 08:22 General appearance: cooperative, morbidly obese, no acute distress - Head Head exam: Present: atraumatic, normal inspection, normocephalic - Eye Eye exam: Present: EOMI, normal appearance, PERRL Pupils: Present: normal accommodation - ENT ENT exam: Present: mucous membranes moist - Neck Neck exam: Present: normal inspection - Respiratory Respiratory exam: Present: CTAB. Absent: rales, respiratory distress, rhonchi, wheezes - Cardiovascular Cardiovascular exam: Present: irregular rhythm. Absent: tachycardia - GI/Abdominal GI/Abdominal exam: Present: distended (obese), normal bowel sounds, soft. Absent: tenderness - Extremities Exam Extremities exam: Absent: joint swelling, tenderness Additional comments: Right foot wound VAC dressing C/D/I without leak. [place] dressing C/D/I. Left foot guaze dressing C/D/I. - Neurological Exam Neurological exam: Present: alert, oriented X3, no focal deficits - Psychiatric Psychiatric exam: Present: normal affect, normal mood - Skin Skin exam: Present: dry, intact, normal color, warm Consult Discharge Plan - Plan Referrals: Marissa Pitts CNP [Primary Care Provider] - Keely Bearden CNP [Advanced Practice Nurse] - 01/09/18 9:20 am Prescriptions: Ampicillin/Sulbactam [Unasyn] 3,000 mg IVPB Q6H 42 Days #168 vial - Attending Attestation I examined this patient and my medical decision-making was reviewed with the Resident Physician. I agree with the documented findings, disposition and treatment plan as described except to the extent set forth below.
[2017-12-22] MEDS: Loratadine 10 MG TABLET PO SCH (09:53)
[2017-12-22] MEDS: metroNIDAZOLE 500 MG TABLET PO SCH ×2 (09:53→14:47)
[2017-12-22] MEDS: Isosorbide MONOnitrate (24 HR) 60 MG TAB.ER.24H PO SCH (09:53)
[2017-12-22] MEDS: Diltiazem CD (24hr) 120 MG CAPSULE PO SCH (09:53)
[2017-12-22] MEDS: Lisinopril 20 MG TABLET PO SCH (09:53)
[2017-12-22] MEDS: Furosemide 40 MG TABLET PO SCH (09:53)
[2017-12-22] MEDS: Insulin DETEMIR 100 UNIT/ML X5UNITS SQ SCH (09:54)
--- NOTE | 2017-12-22 12:09 | Internal Med Progress Note ---
Date of Encounter: 12/22/17 Time of Encounter: 12:26 - Assessment and plan (1) Abscess of right foot Status: Acute Assessment and plan: continue management as per primary team (2) Hyperkalemia Status: Acute Assessment and plan: Potassium today was 5.3 today. This is likely from lisinopril dose increase from uncontrolled hypertension. We will decrease back down to 10 mg daily today to arrange that dose for discharge Recommend recheck potassium in 2-3 days on discharge. (3) Atrial fibrillation Status: Chronic Assessment and plan: Stable continue CCB and beta ana laura; Continue Xarelto Rate under control Qualifiers: Atrial fibrillation type: paroxysmal Qualified Code(s): I48.0 - Paroxysmal atrial fibrillation (4) CAD (coronary artery disease) Status: Chronic Assessment and plan: ASA, statin, beta ana laura, ACEI, nitrate; Qualifiers: Coronary Disease-Associated Artery/Lesion type: [place] artery [place] vs. transplanted heart: [place] heart Associated angina: without angina Qualified Code(s): I25.10 - Atherosclerotic heart disease of [place] coronary artery without angina pectoris (5) Chronic kidney disease, stage III (moderate) Status: Chronic Assessment and plan: Creatinine stable at 1.4 (6) Type 2 diabetes mellitus Status: Chronic Assessment and plan: Levemir has been adjusted, currently 40 units in AM and 90 units HS. continue ISS and diabetic diet Qualifiers: Diabetes mellitus custodial insulin use: with custodial use Diabetes mellitus complication status: with skin complications Diabetes mellitus complication detail: with foot ulcer Qualified Code(s): E11.621 - Type 2 diabetes mellitus with foot ulcer; L97.509 - Non-pressure chronic ulcer of other part of unspecified foot with unspecified severity; Z79.4 - penitentiary ( current) use of insulin (7) Hypertension Status: Chronic Assessment and plan: Continue Cardizem, metoprolol 25 mg BID, Continue PRN IV Hydralazine; Lisinopril was increased to 20 mg daily but potassium levels slowly increased to 5.3. Will suggest to decrease back down to 10 mg daily as was before. Will need monitoring of BP as outpatient and patient aware of this. Qualifiers: Hypertension type: essential hypertension Qualified Code(s): I10 - Essential (primary) hypertension (8) Gas gangrene of foot Status: Acute Assessment and plan: underwent right 5th ray partial amputation on 12/15; improving leukocytosis; postop plan per primary team; pain control with PRN Oxycodone; cannot find aerobic cultures from OR; likely will need custodial IV antibiotics; ID consulted; (9) Morbid obesity Status: Chronic - Time Spent With Patient Total time spent is greater than 50% in coordination of care (as documented) at patient's floor/unit and/or counseling patient: - Subjective Interval history: No complaints today. Denies cp, sob, fevers/chills, vomiting, diarrhea. BP at the level patient states is normal for him when he is stressed out. - Constitutional Vitals: Temp Pulse Resp BP Pulse Ox 97.8 F 70 16 153/89 98 12/22/17 08:22 12/22/17 08:22 12/22/17 08:22 12/22/17 08:22 12/22/17 08:22 General appearance: Present: A&O X 3, answers questions appropriately - Head Head exam: Present: atraumatic, normocephalic - Eye Eye exam: Present: PERRL, conjuntiva pink, sclera anicteric Pupils: Present: PERRL - Neck Neck exam general surgery: Present: supple, trachea midline. Absent: lymphadenopathy - Respiratory Respiratory exam: Present: CTAB. Absent: accessory muscle use, rales, rhonchi, wheezes - Cardiovascular Cardiovascular exam: Present: RRR, +S1, +S2. Absent: diastolic murmur, gallop, rubs, systolic murmur - GI/Abdominal GI/Abdominal exam: Present: normal bowel sounds, soft, no peritoneal signs. Absent: distended, tenderness - Extremities Exam Extremities exam: Present: warm, radial pulses palpable and symmetrical. Absent : calf tenderness, cyanotic, pedal edema - Neurological Exam Neurological exam: Present: CN II-XII intact, oriented X3, no focal deficits. Absent: pronater drift, facial droop, speech deficit - Skin Skin exam: Present: dry, intact Internal Medicine: Result - Labs CBC & Chem 7: 12/22/17 05:41 12/22/17 05:41 Labs: Short CBC 12/22/17 Range/Units 05:41 WBC 10.6 (4.3-11.1) K/mcL Hgb 10.2 L (12.9-16.9) g/dL Hct 32.9 L (37.5-50.1) % Plt Count 312 (140-400) K/mcL Neutrophils # 7.6 (1.6-8.9) K/mcL BMP 12/22/17 05:41 Sodium 130 L Potassium 5.3 H Chloride 104 Carbon Dioxide 22 L BUN 34 H Creatinine 1.55 H Glucose 212 H Calcium 9.1 - VTE Documentation of Mechanical Device: Intermittent pneumatic compression device Consult Discharge Plan - Plan Additional Instructions: Will need follow up scheduled with in wound care center next Referrals: Evin Cantu DPAparna [Other] - 12/28/17 11:15 am Keely Bearden CNP [Advanced Practice Nurse] - 01/09/18 9:20 am Marissa Pitts CNP [Primary Care Provider] - Prescriptions: OxyCODONE Immed Rel [Roxicodone 5 MG] 5 mg PO Q6HR PRN 5 Days #20 tablet PRN Reason: Pain Ampicillin/Sulbactam [Unasyn] 3,000 mg IVPB Q6H 42 Days #168 vial
[2017-12-22] MEDS: Cefepime HCl 2,000 MG in Water for inj. (sterile) 20 ML 20 ML IVPB SCH (12:15)
[2017-12-22] MEDS: Gentamicin Oint 15 GM TUBE TP SCH (12:18)
[2017-12-22] MEDS ORDERED: Lisinopril 20 MG TABLET PO SCH (12:26)
--- NOTE | 2017-12-22 12:53 | Discharge Summary ---
Date of Encounter: 12/22/17 Time of Encounter: 12:35 - NOTES TO OUTPATIENT PROVIDER Notes to Outpatient Provider: Will need to follow up with PCP following discharge. Will need to follow up with in wound care center next week. ID Follow up with ID 01/09/18 at 0920. 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 Plan: Per ID will be discharged on Unasyn, order provided, 6 weeks of IV antibiotic therapy recommended positive for Enterococcus and E. coli. VAT team consulted and line placed Will be discharged to [facility]TCF Accepted at [facility]. Requires daily dressing changes to left foot santyl and wet to dry dressing- orders for santyl provided wound vac to right foot with a M-W- dressing change schedule. Follow up with Dr. Cantu in wound care center one week after discharge from hospital. Hospitalist managing comorbidities. Protective weight bearing to heel only. OARRS reviewed, patient will be discharged on roxycodone 5mg PO PRN Q6H for pain 5 days, prescription provided Qualifiers: Diabetic foot ulcer location: midfoot Laterality: left Non-pressure ulcer stage: with necrosis of bone Qualified Code(s): E08.621 - Diabetes mellitus due to underlying condition with foot ulcer; L97.424 - Non-pressure chronic ulcer of left heel and midfoot with necrosis of bone (2) Hyperkalemia Priority: Secondary Status: Acute Comments: Potassium today was 5.3 today. This is likely from lisinopril dose increase from uncontrolled hypertension. We will decrease back down to 10 mg daily today to arrange that dose for discharge Recommend recheck potassium in 2-3 days. (3) Atrial fibrillation Priority: Secondary Status: Chronic Comments: rate controlled Qualifiers: Atrial fibrillation type: paroxysmal Qualified Code(s): I48.0 - Paroxysmal atrial fibrillation (4) CAD (coronary artery disease) Priority: Secondary Status: Chronic Comments: ASA, statin, beta ana laura, ACEI, nitrate Qualifiers: Coronary Disease-Associated Artery/Lesion type: [place] artery [place] vs. transplanted heart: [place] heart Associated angina: without angina Qualified Code(s): I25.10 - Atherosclerotic heart disease of [place] coronary artery without angina pectoris (5) Chronic kidney disease, stage III (moderate) Priority: Secondary Status: Chronic Comments: stable, monitor renal function (6) Hypertension Priority: Secondary Status: Chronic Comments: Continue Cardizem, metoprolol 25 mg BID, Lisinopril was increased to 20 mg daily, it is now under better control Qualifiers: Hypertension type: essential hypertension Qualified Code(s): I10 - Essential (primary) hypertension (7) Type 2 diabetes mellitus Priority: Secondary Status: Chronic Comments: Levemir has been adjusted, currently 40 units in AM and 90 units HS. 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 Causative organism Enterococcus, E. coli, and MSSA. MRI of the foot showed subcutaneous gas with possible OM. ESR >130. CRP 247. Podiatry consulted and following. Status post I & D with partial 5th ray amputation 11/28/[address] Cantu. Operative note reviewed. Pus noted intra-op. Cultures and pathology are pending. I called and spoke with micro this morning. Apparently, the aerobic culture order was not placed after the patient's first surgery. Luckily, the specimen was still there and is able to be run and is positive for Enterococcus and E. coli. The patient does have hardware in his foot. We will need to be aggressive with his antibiotics. Status post repeat washout with PRP graft application 12/19/[address] Cantu. Operative note reviewed. Wound care and activity restrictions per the podiatry team. Discontinue Vanc, Cefepime, and Flagyl. Start Unasyn 3 grams IV Q6H. Duration of treatment depends on the clinical picture, but likely 6 weeks of IV antibiotics. Monitor renal function and for drug toxicity and dose-adjust antibiotics. director of maternity services to assist with discharge planning. Okay to consult VAT prior to discharge for IV line placement. Will need weekly CBC, BUN/Cr, ESR, CRP. Will need weekly IV care. Follow up with ID 01/09/18 at 0920. Qualifiers: Osteomyelitis type: unspecified type Osteomyelitis location: foot Laterality: right Qualified Code(s): M86.9 - Osteomyelitis, unspecified Procedures and tests throughout hospitalization: Foot X-Ray 12/16/17 10:38 IMPRESSION: Postsurgical changes status post recent amputation of the 5th digit at the level of the mid metatarsal. Remote postsurgical changes of the base of the 5th metatarsal and of the 4th digit as described above. Debridement of the soft tissues of the lateral right forefoot with persistent edema suggesting cellulitis is seen on recent MRI. D/ / John Torres MD / John Torres MD Interpreting Provider: John Torres MD Labs on day of discharge: Labs from last 24 hours 12/22/17 12/22/17 12/22/17 12:07 11:17 10:50 WBC RBC Hgb Hct MCV MCH MCHC RDW Plt Count MPV Immature Gran % Seg Neutrophils % Lymphocytes % Monocytes % Eosinophils % Basophils % Neutrophils # Lymphocytes # Monocytes # Eosinophils # Basophils # Sodium Potassium Chloride Carbon Dioxide BUN Creatinine Est GFR ( Amer) Est GFR (Non-Af Amer) BUN/Creatinine Ratio Glucose POC Glucose 213 H 252 H 236 H Calculated Osmolality Calcium 12/22/17 12/22/17 12/22/17 07:39 05:41 05:41 WBC 10.6 RBC 4.18 L Hgb 10.2 L Hct 32.9 L MCV 78.7 L MCH 24.4 L MCHC 31.0 L RDW 15.9 H Plt Count 312 MPV 9.0 L Immature Gran % 4.0 Seg Neutrophils % 71.6 Lymphocytes % 13.6 Monocytes % 6.0 Eosinophils % 4.4 Basophils % 0.4 Neutrophils # 7.6 Lymphocytes # 1.4 Monocytes # 0.6 Eosinophils # 0.5 Basophils # 0.0 Sodium 130 L Potassium 5.3 H Chloride 104 Carbon Dioxide 22 L BUN 34 H Creatinine 1.55 H Est GFR ( Amer) 57 L Est GFR (Non-Af Amer) 47 L BUN/Creatinine Ratio 22 Glucose 212 H POC Glucose 154 H Calculated Osmolality 284 Calcium 9.1 12/21/17 12/21/17 12/21/17 22:43 20:24 16:21 WBC RBC Hgb Hct MCV MCH MCHC RDW Plt Count MPV Immature Gran % Seg Neutrophils % Lymphocytes % Monocytes % Eosinophils % Basophils % Neutrophils # Lymphocytes # Monocytes # Eosinophils # Basophils # Sodium Potassium Chloride Carbon Dioxide BUN Creatinine Est GFR ( Amer) Est GFR (Non-Af Amer) BUN/Creatinine Ratio Glucose POC Glucose 194 H 221 H 237 H Calculated Osmolality Calcium Preliminary micro results at discharge 12/15/17 18:49 Anaerobic Culture - Preliminary Right Foot At this time, no anaerobic growth is present. The culture will be finalized after 5 days of incubation. 12/19/17 01:00 Anaerobic Culture - Preliminary Right Foot At this time, no anaerobic growth is present. The culture will be finalized after 5 days of incubation. 12/20/17 11:09 Blood Culture - Preliminary Peripheral Venipuncture No growth. 12/20/17 11:00 Blood Culture - Preliminary Peripheral Venipuncture No growth. - Impressions ITS Impressions Foot X-Ray 12/16/17 10:38 IMPRESSION: Postsurgical changes status post recent amputation of the 5th digit at the level of the mid metatarsal. Remote postsurgical changes of the base of the 5th metatarsal and of the 4th digit as described above. Debridement of the soft tissues of the lateral right forefoot with persistent edema suggesting cellulitis is seen on recent MRI. D/ / John Torres MD / John Trores MD Interpreting Provider: John Torres MD - Hospital Course Hospital course: Mr. Mercedes is a 52 year old male who was sent to [facility] from [facility] for evaluation of a right foot ulceration. Patient stated he had onset of fever with right foot pain and diarrhea on December 11. He had 2 episodes of vomiting the morning of December 13 and decided to seek medical attention since he did not feel improved. he was seen and evaluated per alda, started on IV vancomycin and MRI was obtain showing suspicion of gas within the tissue. patient was then transferred to [facility], report was provided to however took surgical call for patient. Patient was evaluated and taken for incision and drainage, open 5th ray amputation on 12/15, on 12/19 Washout of right foot wound, excisional debridement of right foot wound to the level of bone, application of PRP and wound vac Per intra op cultures patient grew Enterococcus and E. coli.infectious disease managed IV antibiotic coverage and started on Unasyn 3 grams IV Q6H. VAT team was consulted. Patient was sent out on 6 weeks of IV antibiotic therapy and wound vac. Patient was sent to LTCF in stable condition. Patient k+ was 5.3 on day of discharge, asymptomatic. GLENAN inhibitor was adjusted per internal medicine and lab orders for repeat K+ in 2 days. Patient will follow outpatient with podiatry in wound care center with , with Keely Bearden and with his PCP. Patient is in stable condition on the day of discharge. VS stable. Understands discharge instructions. Time spent discussing smoking cessation with patient: 3 to 10 minutes - Time Spent with Patient Total time spent providing and/or coordinating discharge services: Greater than 30 minutes - Discharge Medications Prescriptions: Ampicillin/Sulbactam [Unasyn] 3,000 mg IVPB Q6H 42 Days #168 vial OxyCODONE Immed Rel [Roxicodone 5 MG] 5 mg PO Q6HR PRN 5 Days #20 tablet PRN Reason: Pain Home Medications: Aspirin [Lo-Dose Aspirin EC] 81 mg PO QAM 03/11/16 [History] Atorvastatin [Lipitor] 40 mg PO HS 03/11/16 [History] Insulin ASPART [Novolog Flexpen] 20 - 33 unit SQ TIDWM 03/11/16 [History] Albuterol Sulfate [Ventolin Hfa] 2 puff IH Q4H PRN 06/07/16 [History] Diltiazem CD (24hr) [Cardizem CD] 120 mg PO DAILY #30 tab 03/07/17 [Rx] Isosorbide MONOnitrate (24 HR) [Imdur] 30 mg PO DAILY #30 tab 03/07/17 [Rx] Rivaroxaban [Xarelto] 15 mg PO DAILY 04/22/17 [History] Cetirizine HCl [Zyrtec] 10 mg PO DAILY 05/08/17 [History] Ascorbic Acid [Vitamin C] 500 mg PO 0630 #30 tablet 11/03/17 [Rx] Ferrous Sulfate 325 mg PO 0630 #30 tablet 11/03/17 [Rx] Furosemide [Lasix] 40 mg PO DAILY #0 11/03/17 [Rx] Insulin Glargine [Lantus] 70 unit SQ HS 12/15/17 [History] Polyethylene Glycol 3350 [MiraLAX] 17 gm PO DAILY PRN 12/15/17 [History] Collagenase Oint [Santyl] 1 appl TP DAILY 12/16/17 [History] Insulin Glargine,Hum.rec.anlog [Lantus Solostar] 20 units SQ QAM 12/16/17 [ History] cloNIDine HCl [CloNIDine HCl] 0.1 mg PO TID 12/16/17 [History] Ampicillin/Sulbactam [Unasyn] 3,000 mg IVPB Q6H 42 Days #168 vial 12/22/17 [Rx] Gentamicin Oint [Garamycin] 1 appl TP DAILY tube 12/22/17 [Rx] Lisinopril [Zestril] 10 mg PO DAILY tablet 12/22/17 [Rx] Metoprolol [Lopressor] 25 mg PO BID 12/22/17 [History] OxyCODONE Immed Rel [Roxicodone 5 MG] 5 mg PO Q6HR PRN 5 Days #20 tablet [Rx] Allergies/Adverse Reactions: 3 Allergy/AdvReac Type Severity Reaction Status Date / Time No Known Allergies Allergy Verified 12/16/17 12:45 Date of admission: 12/15/17 13:22 Primary care physician: Marissa Pitts Consults: 12/15/17 16:29 Consult to Hospitalist [CONS] Routine Consulting Provider: Hospitalist Destiny Reason for Consult: medical management Call Completed: Yes 12/18/17 12:07 Consult to Infectious Diseases [CONS] Routine Consulting Provider: Infectious Disease Mell Reason for Consult: gas gangrene right foot. Time Notified: 12:00 Call Completed: Yes 12/20/17 17:12 Consult to Occupational Therapy [CONS] Routine Comment: Evaluate, develop and implement POC Reason for Consult: ECF placement Does patient have active BEDREST order?: No Is patient medically & hemodynamically stable?: Yes 12/22/17 10:27 Consult to Invasive Line Access Team [CONS] Routine Reason for Consult: HOME ATB Line Type: Midline Discharging clinician: Hellen Conrad Anticipated date of discharge: 12/22/17 - Patient Status Disposition: Transfer SNF Condition: Good Functional capacity at discharge: uses cane/walker Overall status at discharge: patient is progressing back to baseline - Discharge Instructions Follow Up With: Evin Cantu DPM [Other] - 12/28/17 11:15 am Keely Bearden CNP [Advanced Practice Nurse] - 01/09/18 9:20 am Marissa Pitts CNP [Primary Care Provider] - Additional Instructions: Will need follow up scheduled with in wound care center next - Diet and Activity Activity: other (protective weight bearing to heel only) Diet: diabetic diet - VTE Documentation of Mechanical Device: Intermittent pneumatic compression device
[2017-12-22] MEDS: Acetaminophen 325 MG TABLET PO PRN (14:46)
[2017-12-22 15:05] VITALS: BP 134/64
[2017-12-22] MEDS ORDERED: Aminoglycoside Consult 1 EACH MC ONE (15:29)
== END 2017-12-22 15:30 | DRG 710 ==
LOC: SUATTDRO 13:22 → 3NENU 13:22 → 3ANU 12-18 12:34
PROVIDERS: ADMIT Podiatrist; ATTEND Student in an Organized Health Care Education/Training Program

== ENCOUNTER 2019-01-07 14:16 | Inpatient (IN) ==
--- NOTE | 2019-01-07 14:45 | Emergency Department Note ---
Disposition Clinical Impression: Prolonged QT interval CHF exacerbation Qualifiers: Heart failure type: diastolic Qualified Code(s): I50.33 - Acute on chronic diastolic (congestive) heart failure Diabetic foot ulcer Qualifiers: Diabetic foot ulcer location: unspecified part of foot Diabetes mellitus type: other specified (including PIERCE) Laterality: unspecified laterality Non-pressure ulcer stage: unspecified non-pressure ulcer stage Qualified Code(s): E13.621 - Other specified diabetes mellitus with foot ulcer Disposition: Admitted As Inpatient Condition: Fair Time of Disposition: 15:49 Chest Pain HPI - General Chief Complaint: ED Chest Pain Stated Complaint: CP,Bi-lateral LE swelling/blisters Time Seen by Provider: 01/07/19 14:32 Source: family Limitations: no limitations Vital Signs Reviewed: Yes Nursing Notes Reviewed: Yes - History of Present Illness HPI Narrative: Patient with previous history of cardiac bypass, atrial fibrillation on Zaroxolyn so, COPD not on home oxygen, uncontrolled diabetes with previous amputation of the right lateral toes presenting to the emergency department for evaluation of increased swelling in the legs as well as chest pain and ass ociated shortness of breath. Patient was seen at outside facility several days ago for swelling in the legs as well as blistering. Patient has multiple blisters throughout the leg including the left foot as well as the left chacon and 3 lesions on the right chacon. The lesions themselves appear to have unroofed and show underlying nonpurulent not specifically infected ulcerations. Patient does have +2 pitting edema up to the leg as well as some mild edema into the abdomen. Patient overall was dyspneic just trying to sit up in bed. Patient has decreased breath sounds and concern for Rales bilaterally. The patient's chest pain was left-sided in nature. Patient describes the episode as lasting several seconds and being a total pain. Patient states that he has not had any further episodes of chest pain. Patient is relatively asymptomatic as long as he is just resting in bed. Patient will undergo further evaluation for underlying CHF exacerbation as well as further treatment and management of diabetic ulcers. Severity scale (1-10): 8 - Related Data Home Medications Medication Instructions Recorded Confirmed Aspirin [Lo-Dose Aspirin EC] 81 mg PO QAM 03/11/16 01/07/19 Atorvastatin [Lipitor] 40 mg PO HS 03/11/16 01/07/19 Rivaroxaban [Xarelto] 20 mg PO DAILY 04/22/17 01/07/19 Cetirizine HCl [Zyrtec] 10 mg PO DAILY 05/08/17 01/07/19 cloNIDine HCl [CloNIDine HCl] 0.1 mg PO TID 12/16/17 01/07/19 Metoprolol [Lopressor] 25 mg PO BID 12/22/17 01/07/19 Insulin Human Regular [HumuLIN R] 80 unit SQ BID 08/25/18 01/07/19 Fluticasone/Vilanterol [Breo 1 each IH DAILY 11/05/18 01/07/19 Ellipta 100-25 Mcg INH] Lisinopril [Zestril] 10 mg PO DAILY 11/05/18 01/07/19 Ferrous Sulfate 325 mg PO DAILY 12/23/18 01/07/19 Albuterol Sulfate [Ventolin Hfa] 2 puff IH BID 01/07/19 01/07/19 Budesonide/Formoterol 160/4.5 2 puff IH Q4H PRN 01/07/19 01/07/19 [Symbicort 160/4.5] Previous Rx's Medication Instructions Recorded Diltiazem CD (24hr) [Cardizem CD] 120 mg PO DAILY #30 tab 03/07/17 Isosorbide MONOnitrate (24 HR) 30 mg PO DAILY #30 tab 03/07/17 [Imdur] Ascorbic Acid [Vitamin C] 500 mg PO DAILY #30 capsule 11/07/18 Cholecalciferol (D-3) [Vitamin D] 2,000 unit PO DAILY #60 tablet 11/07/18 Cyanocobalamin (B-12) [Vitamin B12] 1,000 mcg PO DAILY #30 tablet 11/07/18 Furosemide [Lasix] 40 mg PO DAILY #30 tablet 11/07/18 Allergies Allergy/AdvReac Type Severity Reaction Status Date / Time No Known Allergies Allergy Verified 09/11/18 14:14 All systems ED: reviewed and negative except as stated. Review of Systems: As Per HPI Constitutional: Denies: fever, chills, weakness ENT ED: Denies: congestion Cardiovascular: Reports: chest pain, palpitations, dyspnea on exertion Respiratory: Reports: dyspnea. Denies: cough Gastrointestinal: Denies: abdominal pain, nausea, vomiting Musculoskeletal: Denies: back pain Integumentary: Reports: lesions Neurological: Denies: headache Endocrine: Reports: fatigue Chest Pain PMH - Past Medical History Medical history: Reports: arthritis, atrial fibrillation, CHF, COPD, coronary artery disease, CVA, diabetes, GERD, hyperlipidemia, hypertension, myocardial infarction, renal disease Surgical history: Reports: cataract, coronary bypass (CABG), orthopedic, other, other Psychiatric history: Reports: anxiety, depression - Social History Smoking Status: Former smoker Alcohol use: Reports: none Drug use: Reports: none Physical Exam General: Well appearing, nontoxic, no acute distress Head: Normocephalic Atraumatic Eyes: PERRL, EOMI ENT: Airway patent, no stridor Neck: supple, no meningismus Chest: Decreased breath sounds and rales bilaterally Cardiac: Irregular rhythm Abdomen: soft, nontender, nondistended; no guarding, rebound, or tenderness to percussion Musculoskeletal: +2 pitting edema throughout the legs as well as +1 pitting edema to the abdomen Skin: Ulcerations to the left foot as well as the left chacon as well as 3 lesions to the right chacon without purulence or drainage. Neuro: Alert and Oriented to person, place, and time; No obvious focal deficit. - General Limitations: no limitations Course - Reevaluation(s) Reevaluation #1: Lasix is given. Patient will be admitted for concern for CHF as well as diabetic ulcers. Vital Signs Temperature 97.5 F L 01/07/19 14:20 Pulse Rate 85 01/07/19 14:20 Respiratory Rate 20 01/07/19 14:20 Blood Pressure 190/92 01/07/19 14:20 O2 Sat by Pulse Oximetry 97 01/07/19 14:20 Temperature 98.3 F 01/08/19 19:20 Pulse Rate 91 01/08/19 19:20 Respiratory Rate 16 01/08/19 19:20 Blood Pressure 117/72 01/08/19 19:20 O2 Sat by Pulse Oximetry 95 01/08/19 19:20 Oxygen Delivery Oxygen Delivery Room Air Chest Pain - Medical Records Medical records reviewed: Yes I reviewed the patient's medical records. - Lab Data Lab results reviewed: Yes I reviewed the patient's lab results. Result diagrams: 01/08/19 05:24 01/08/19 05:24 Lab Results 01/07/19 01/07/19 01/07/19 Range/Units 14:45 14:45 14:45 WBC 8.1 (4.3-11.1) K/mcL RBC 4.60 (4.19-5.50) M/mcL Hgb 10.6 L (12.9-16.9) g/dL Hct 35.8 L (37.5-50.1) % MCV 77.8 L (83.0-100.0) fL MCH 23.0 L (28.0-33.3) pg MCHC 29.6 L (31.6-35.5) g/dL RDW 17.2 H (11.5-14.5) % Plt Count 211 (140-400) K/mcL MPV 9.7 (9.4-12.4) fL Immature Gran % 0.6 (0-4) % Seg Neutrophils % 77.2 % Lymphocytes % 13.7 % Monocytes % 6.8 % Eosinophils % 1.5 % Basophils % 0.2 % Neutrophils # 6.2 (1.6-8.9) K/mcL Lymphocytes # 1.1 (0.6-4.6) K/mcL Monocytes # 0.6 (0.0-1.3) K/mcL Eosinophils # 0.1 (0.0-0.6) K/mcL Basophils # 0.0 (0.0-0.2) K/mcL Sodium 138 (136-145) mEq/L Potassium 4.2 (3.5-5.1) mEq/L Chloride 104 (98-107) mEq/L Carbon Dioxide 26 (23-29) mEq/L BUN 26 H (6-20) mg/dL Creatinine 1.77 H (0.70-1.30) mg/dL Est GFR ( Amer) 49 L (> 60) Est GFR (Non-Af Amer) 40 L (> 60) BUN/Creatinine Ratio 15 (6-26) Glucose 328 H (70-105) mg/dL Calculated Osmolality 304 H (280-300) Calcium 9.6 (8.6-10.3) mg/dL Magnesium 2.1 (1.6-2.6) mg/dL Troponin I 0.04 H* (< 0.04) ng/mL B-Natriuretic Peptide 288 H (Less than 100) pg/mL 01/07/19 Range/Units 21:28 WBC (4.3-11.1) K/mcL RBC (4.19-5.50) M/mcL Hgb (12.9-16.9) g/dL Hct (37.5-50.1) % MCV (83.0-100.0) fL MCH (28.0-33.3) pg MCHC (31.6-35.5) g/dL RDW (11.5-14.5) % Plt Count (140-400) K/mcL MPV (9.4-12.4) fL Immature Gran % (0-4) % Seg Neutrophils % % Lymphocytes % % Monocytes % % Eosinophils % % Basophils % % Neutrophils # (1.6-8.9) K/mcL Lymphocytes # (0.6-4.6) K/mcL Monocytes # (0.0-1.3) K/mcL Eosinophils # (0.0-0.6) K/mcL Basophils # (0.0-0.2) K/mcL Sodium (136-145) mEq/L Potassium (3.5-5.1) mEq/L Chloride (98-107) mEq/L Carbon Dioxide (23-29) mEq/L BUN (6-20) mg/dL Creatinine (0.70-1.30) mg/dL Est GFR ( Amer) (> 60) Est GFR (Non-Af Amer) (> 60) BUN/Creatinine Ratio (6-26) Glucose (70-105) mg/dL Calculated Osmolality (280-300) Calcium (8.6-10.3) mg/dL Magnesium (1.6-2.6) mg/dL Troponin I 0.04 H* (< 0.04) ng/mL B-Natriuretic Peptide (Less than 100) pg/mL - Radiology Data Radiology results reviewed: Yes I reviewed the patient's radiology results. - EKG Data EKG attestation: Yes I reviewed and interpreted this EKG. EKG results narrative: EKG shows atrial tachycardia with IN 243 QRS 140 QTC 525. Patient has concern for less than 1 mm of depressions throughout the leads V5 and V6 with associated T-wave flattening throughout 1 and aVL. Patient also has approximately a half millimeter of depression in lead 2 as well as aVF. EKG changes are similar to appearance of 11/05/18 which showed specific atrial fibrillation
[2019-01-07 14:57] LABS: Basophils % 0.2 %; Eosinophils # 0.1 K/mcL (0.0-0.6); Eosinophils % 1.5 %; Hematocrit 35.8 % (37.5-50.1); Hemoglobin 10.6 g/dL (12.9-16.9); Immature Granulocytes % 0.6 % (0-4); Lymphocytes # 1.1 K/mcL (0.6-4.6); Lymphocytes % 13.7 %; Mean Corpuscular HGB Conc 29.6 g/dL (31.6-35.5); Mean Corpuscular Volume 77.8 fL (83.0-100.0); Mean Platelet Volume 9.7 fL (9.4-12.4); Monocytes # 0.6 K/mcL (0.0-1.3); Monocytes % 6.8 %; Neutrophils # 6.2 K/mcL (1.6-8.9); Platelet Count 211 K/mcL (140-400); Red Cell Distribution Width 17.2 % (11.5-14.5); Segmented Neutrophils % 77.2 %; White Blood Count 8.1 K/mcL (4.3-11.1)
[2019-01-07 15:28] LABS: Calcium 9.6 mg/dL (8.6-10.3); Magnesium 2.1 mg/dL (1.6-2.6); Potassium 4.2 mEq/L (3.5-5.1); Troponin I 0.04 ng/mL (< 0.04)
[2019-01-07] MEDS ORDERED: Aspirin 81 MG TAB.CHEW PO STA (15:29)
[2019-01-07] MEDS ORDERED: Furosemide 40 MG/4 ML VIAL IVP ONE (15:33)
[2019-01-07] MEDS ORDERED: Naloxone 0.4 MG/ML INJ IVP PRN (17:03)
[2019-01-07] MEDS ORDERED: Budesonide/Formoterol 160/4.5 1 PUFF INH IH PRN (17:07)
--- NOTE | 2019-01-07 18:04 | Internal Med History&Physical ---
Date of Encounter: 01/07/19 Time of Encounter: 18:00 Internal Medicine - H&P: HPI Chief complaint: Shortness of breath and lower extremity swelling for weeks History of present illness: Mr. Mercedes is a 53 year old male with pmh of diastolic CHF, atrial fibrillation, diabetic foot ulcers s/p toe amputation presenting with complaints of shortness of breath and lower extremity swelling for weeks. Patient says he takes lasix at home but lasix has not been helping. He initially began to have shortness of breath which progressed to swelling of his lower extremities. He is normally able to walk 4 blocks, but says he gets short of breath at rest now. He has pitting edema from the bilateral lower extremities to the abdomen. He complains of a vague cough, but denies any wheezing . He also has some blisters in his legs bilaterally In the ER, a chest xray was done showing pulmonary vascular congestion. he was started on lasix and he is being admitted for further management Past Med Surg Social Fam HX - Past Medical History Medical history: arthritis, atrial fibrillation, CHF, COPD, coronary artery dise ase, CVA, diabetes, GERD, hyperlipidemia, hypertension, myocardial infarction, renal disease Psychiatric history: anxiety, depression - Past Surgical History Surgical History: cataract, coronary bypass (CABG), orthopedic, other, other Additional surgical history: hip replacement 2005. 4 coronary bypass 2006. bilat amputation 4th toe. 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 - Social History Smoking Status: Former smoker Smokeless Tobacco Status: Yes (snuff) Alcohol use: none Drug use: none - Family History Mother Family Member Ethnicity: Non- Living Status: Hx Family Cardiac Disorders: Yes (HD, HTN, CHF) Hx Family Respiratory Disorders: Yes (COPD) Father Family Member Ethnicity: Non- Living Status: Hx Family Cardiac Disorders: Yes (HD, HTN, [place]) Brother Family Member Ethnicity: Non- Living Status: Still Living Hx Family Cardiac Disorders: Yes (HD) Hx Family Respiratory Disorders: Yes (COPD) Sister Family Member Ethnicity: Non- Living Status: Still Living Hx Family Endocrine Disorder: Yes (T2DM) Internal Medicine - H&P: Meds Aspirin [Lo-Dose Aspirin EC] 81 mg PO QAM 03/11/16 [History] Atorvastatin [Lipitor] 40 mg PO HS 03/11/16 [History] Diltiazem CD (24hr) [Cardizem CD] 120 mg PO DAILY #30 tab 03/07/17 [Rx] Isosorbide MONOnitrate (24 HR) [Imdur] 30 mg PO DAILY #30 tab 03/07/17 [Rx] Rivaroxaban [Xarelto] 20 mg PO DAILY 04/22/17 [History] Cetirizine HCl [Zyrtec] 10 mg PO DAILY 05/08/17 [History] cloNIDine HCl [CloNIDine HCl] 0.1 mg PO TID 12/16/17 [History] Metoprolol [Lopressor] 25 mg PO BID 12/22/17 [History] Insulin Human Regular [HumuLIN R] 80 unit SQ BID 08/25/18 [History] Fluticasone/Vilanterol [Breo Ellipta 100-25 Mcg INH] 1 each IH DAILY 11/05/18 [History] Lisinopril [Zestril] 10 mg PO DAILY 11/05/18 [History] Ascorbic Acid [Vitamin C] 500 mg PO DAILY #30 capsule 11/07/18 [Rx] Cholecalciferol (D-3) [Vitamin D] 2,000 unit PO DAILY #60 tablet 11/07/18 [Rx] Cyanocobalamin (B-12) [Vitamin B12] 1,000 mcg PO DAILY #30 tablet 11/07/18 [Rx] Furosemide [Lasix] 40 mg PO DAILY #30 tablet 11/07/18 [Rx] Ferrous Sulfate 325 mg PO DAILY 12/23/18 [History] Albuterol Sulfate [Ventolin Hfa] 2 puff IH BID 01/07/19 [History] Budesonide/Formoterol 160/4.5 [Symbicort 160/4.5] 2 puff IH Q4H PRN 01/07/19 [History] Allergy/AdvReac Type Severity Reaction Status Date / Time No Known Allergies Allergy Verified 09/11/18 14:14 All Systems PM: A 10-system review of systems was performed and is negative for pertinent findings except as documented above in the HPI. - Constitutional Constitutional: no chills, no fever(s), no night sweats - EENT Eyes: no change in vision, no discharge, no pain, no photophobia Ears: no ear discharge, no ear pain, no tinnitus Nose, mouth and throat: no dysphagia, no nasal discharge, no neck pain, no sore throat - Cardiovascular Cardiovascular ROS IM: no chest pain, no diaphoresis, no dyspnea, no lightheadedness, no palpitations, no syncope - Respiratory Respiratory: cough, dyspnea, dyspnea on exertion, no wheezing, no excessive phlegm production - Gastrointestinal Gastrointestinal: no abdominal pain, no diarrhea, no hematemesis, no hematochez ia, no melena, no nausea, no vomiting - Musculoskeletal Musculoskeletal ROS IM: no numbness, no tingling - Integumentary Integumentary IM: no rash, no unusual bruising - Neurological Neurological ROS: no confusion, no convulsions, no focal weakness, no numbness, no tingling, no tremor(s) - Hematologic/Lymphatic Hematologic/Lymphatic: no easy bruising - Constitutional Vitals: Temp Pulse Resp BP Pulse Ox 97.5 F L 71 22 143/77 97 01/07/19 14:29 01/07/19 16:29 01/07/19 16:29 01/07/19 16:29 01/07/19 16:29 Exam: NAD Bilateral lower extremity swelling Decreased breath sounds - Head Head exam: Present: atraumatic, normocephalic - Eye Eye exam: Present: PERRL, conjuntiva pink, sclera anicteric Pupils: Present: PERRL - Neck Neck exam general surgery: Present: supple, trachea midline. Absent: lymphadenopathy - Respiratory Respiratory exam: Present: decreased breath sounds, rales. Absent: accessory muscle use, rhonchi, wheezes - Cardiovascular Cardiovascular exam: Present: RRR, +S1, +S2. Absent: diastolic murmur, gallop, rubs, systolic murmur - GI/Abdominal GI/Abdominal exam: Present: normal bowel sounds, soft, no peritoneal signs. Absent: distended, tenderness - Extremities Exam Extremities exam: Present: warm, radial pulses palpable and symmetrical. Absent: calf tenderness, cyanotic, pedal edema - Neurological Exam Neurological exam: Present: CN II-XII intact, oriented X3, no focal deficits. Absent: pronater drift, facial droop, speech deficit - Skin Skin exam: Present: dry, intact Internal Med - H&P Results - Labs CBC & Chem 7: 01/07/19 14:45 01/07/19 14:45 Labs: Short CBC 01/07/19 Range/Units 14:45 WBC 8.1 (4.3-11.1) K/mcL Hgb 10.6 L (12.9-16.9) g/dL Hct 35.8 L (37.5-50.1) % Plt Count 211 (140-400) K/mcL Neutrophils # 6.2 (1.6-8.9) K/mcL BMP 01/07/19 14:45 Sodium 138 Potassium 4.2 Chloride 104 Carbon Dioxide 26 BUN 26 H Creatinine 1.77 H Glucose 328 H Calcium 9.6 Cardiac Enzymes 01/07/19 Range/Units 14:45 Troponin I 0.04 H* (< 0.04) ng/mL - Impressions ITS Impressions Chest X-Ray 01/07/19 14:32 IMPRESSION: Possible small left pleural effusion or basilar atelectasis. Cardiomegaly. Pulmonary vascular congestion. D/ / 01/07/2019 16:19:26 Yuniel Mckeon MD / earnold Interpreting Provider: Yuniel Mckeon MD - Assessment and Plan (1) Acute exacerbation of CHF (congestive heart failure) Current Visit: Yes Status: Acute Assessment and plan: Pt comes in with shortness of breath, bilateral lower extremity edema and vascular congestion on xray Likely secondary to acute worsening of chronic diastolic CHF. Obtain 2D echo, start on BID lasix and metolazone. Monitor ins and outs, daily weights Qualifiers: Heart failure type: diastolic Qualified Code(s): I50.33 - Acute on chronic diastolic (congestive) heart failure (2) Hypertension Current Visit: Yes Status: Chronic Assessment and plan: Continue home meds Qualifiers: Hypertension type: essential hypertension Qualified Code(s): I10 - Essential (primary) hypertension (3) Morbid obesity Current Visit: Yes Status: Chronic Assessment and plan: Diet and exercise (4) Atrial fibrillation Current Visit: Yes Status: Acute Assessment and plan: Continue metoprolol and xarelto Qualifiers: Qualified Code(s): I48.91 - Unspecified atrial fibrillation (5) Type 2 diabetes mellitus Current Visit: Yes Status: Chronic Assessment and plan: Continue insulin and monitor fingersticks Qualifiers: Diabetes mellitus intermission coordinator insulin use: with intermission coordinator use Diabetes mellitus complication status: with skin complications Diabetes mellitus complication detail: with foot ulcer Qualified Code(s): E11.621 - Type 2 diabetes mellitus with foot ulcer; L97.509 - Non-pressure chronic ulcer of other part of unspecified foot with unspecified severity; Z79.4 - intermediate manager (current) use of insulin (6) DVT prophylaxis Current Visit: Yes Status: Acute Assessment and plan: On xarelto - Time Spent With Patient Total time spent is greater than 50% in coordination of care (as documented) at patient's floor/unit and/or counseling patient:
[2019-01-07] MEDS: metOLazone 5 MG TABLET PO SCH (19:52)
[2019-01-07] MEDS ORDERED: D5% in Water 1,000 ML IVC PRN (23:30)
[2019-01-07] MEDS ORDERED: Dextrose Gel 15 GM/37.5 ML TUBE PO PRN ×2 (23:30)
[2019-01-07] MEDS ORDERED: *HR* Dextrose 50 % in Water (Syg) 50 ML SYRINGE IVP PRN (23:30)
[2019-01-08] MEDS: cloNIDine HCl 0.1 MG TABLET PO SCH ×4 (00:22→20:45)
[2019-01-08] MEDS: Furosemide 40 MG/4 ML VIAL IVP SCH ×3 (00:22→17:35)
[2019-01-08] MEDS: Insulin LISPRO 300 UNITS/3 ML VIAL SQ SCH ×5 (00:30→20:46)
[2019-01-08 06:26] LABS: Basophils % 0.3 %; Eosinophils # 0.3 K/mcL (0.0-0.6); Eosinophils % 2.4 %; Hematocrit 35.8 % (37.5-50.1); Hemoglobin 10.5 g/dL (12.9-16.9); Immature Granulocytes % 0.3 % (0-4); Lymphocytes # 1.5 K/mcL (0.6-4.6); Lymphocytes % 14.6 %; Mean Corpuscular HGB Conc 29.3 g/dL (31.6-35.5); Mean Corpuscular Hemoglobin 22.8 pg (28.0-33.3); Mean Corpuscular Volume 77.7 fL (83.0-100.0); Mean Platelet Volume 10.1 fL (9.4-12.4); Monocytes # 0.8 K/mcL (0.0-1.3); Monocytes % 7.5 %; Neutrophils # 7.7 K/mcL (1.6-8.9); Platelet Count 224 K/mcL (140-400); Red Blood Count 4.61 M/mcL (4.19-5.50); Red Cell Distribution Width 17.2 % (11.5-14.5); Segmented Neutrophils % 74.9 %; White Blood Count 10.2 K/mcL (4.3-11.1)
[2019-01-08 06:44] LABS: Calcium 9.6 mg/dL (8.6-10.3); Magnesium 2.2 mg/dL (1.6-2.6); Phosphorous 3.4 mg/dL (2.7-4.5); Potassium 3.9 mEq/L (3.5-5.1)
[2019-01-08] MEDS ORDERED: Perflutren Lipid Microsphere 1.3 ML in 0.9 % Sodium Chloride 8.7 ML IVP ONE (06:52)
[2019-01-08 07:32] LABS: Estimated Average Glucose 235 mg/dl
[2019-01-08] MEDS: Aspirin Enteric Coated 81 MG Tablet PO SCH (09:57)
[2019-01-08] MEDS: Isosorbide MONOnitrate (24 HR) 30 MG TAB.ER.24H PO SCH (09:57)
[2019-01-08] MEDS: Cyanocobalamin (B-12) 1,000 MCG TABLET PO SCH (09:57)
[2019-01-08] MEDS: *HR* Rivaroxaban 10 MG TABLET PO SCH (09:57)
[2019-01-08] MEDS: Diltiazem CD (24hr) 120 MG CAPSULE PO SCH (09:57)
[2019-01-08] MEDS: metOLazone 5 MG TABLET PO SCH (09:58)
[2019-01-08] MEDS: Cholecalciferol (D-3) 1,000 UNIT TABLET PO SCH (09:58)
--- NOTE | 2019-01-08 12:14 | Internal Med Progress Note ---
Hospitalist Progress Note - Encounter Date of Encounter: 01/08/19 Time of Encounter: 09:00 - Subjective Interval History: No acute events overnight - Exam Vitals: Temp Pulse Resp BP Pulse Ox 98.1 F 103 17 152/89 96 01/08/19 08:05 01/08/19 08:05 01/08/19 08:05 01/08/19 08:05 01/08/19 08:05 Exam: General appearance: Present: A&O X 3, no acute distress Head exam: Present: normocephalic Respiratory exam: Decreased breath sounds Cardiovascular exam: Present: RRR, +S1, +S2. Absent: diastolic murmur, gallop, rubs, systolic murmur GI/Abdominal exam: Soft, NT, ND, +BS Extremities exam: Bilateral lower extremity swelling Neurological exam: Present: alert, oriented X3, no focal deficits. Absent: altered - Assessment and Plan (1) Acute exacerbation of CHF (congestive heart failure) Current Visit: Yes Status: Acute Assessment and Plan: Pt comes in with shortness of breath, bilateral lower extremity edema and vascular congestion on xray Likely secondary to acute worsening of chronic diastolic CHF. Obtain 2D echo, start on BID lasix and metolazone. Monitor ins and outs, daily w eights (2) Hypertension Current Visit: Yes Status: Chronic Assessment and Plan: Continue home meds (3) Morbid obesity Current Visit: Yes Status: Chronic Assessment and Plan: Diet and exercise (4) Atrial fibrillation Current Visit: Yes Status: Acute Assessment and Plan: Continue metoprolol and xarelto (5) Type 2 diabetes mellitus Current Visit: Yes Status: Chronic Assessment and Plan: Continue insulin and monitor fingersticks (6) Bilateral lower leg cellulitis Current Visit: Yes Status: Acute Assessment and Plan: On ceftriaxone and doxycycline (7) DVT prophylaxis Current Visit: Yes Status: Acute Assessment and Plan: On xarelto - Time Spent with Patient Total time spent is greater than 50% in coordination of care (as documented) at patient's floor/unit and/or counseling patient: Internal Medicine: Result - Labs CBC & Chem 7: 01/08/19 05:24 01/08/19 05:24 Labs: Short CBC 01/07/19 01/08/19 Range/Units 14:45 05:24 WBC 8.1 10.2 (4.3-11.1) K/mcL Hgb 10.6 L 10.5 L (12.9-16.9) g/dL Hct 35.8 L 35.8 L (37.5-50.1) % Plt Count 211 224 (140-400) K/mcL Neutrophils # 6.2 7.7 (1.6-8.9) K/mcL BMP 01/07/19 01/08/19 14:45 05:24 Sodium 138 136 Potassium 4.2 3.9 Chloride 104 102 Carbon Dioxide 26 27 BUN 26 H 27 H Creatinine 1.77 H 1.81 H Glucose 328 H 156 H Calcium 9.6 9.6 Cardiac Enzymes 01/07/19 01/07/19 01/08/19 Range/Units 14:45 21:28 05:24 Troponin I 0.04 H* 0.04 H* 0.04 H* (< 0.04) ng/mL - Impressions Impressions Chest X-Ray 01/07/19 14:32 IMPRESSION: Possible small left pleural effusion or basilar atelectasis. Cardiomegaly. Pulmonary vascular congestion. D/ / 01/07/2019 16:19:26 Yuniel Mckeon MD / earnold Interpreting Provider: Yuniel Mckeon MD Echocardiogram 01/07/19 17:48 Impressions: LVEF 55%. Atypical septal motion consistent with post-operative status. Indeterminate diastolic function. Definity echo contrast was used. Right ventricular structure and function are not well evaluated. Mild tricuspid regurgitation. Moderate pulmonary hypertension. Left Ventricular Wall Motion: Rest Echo Findings All wall segments showed normal motion. Findings: Study Quality * Technically challenging due to body habitus. ECG Findings * Normal sinus rhythm. Left Ventricle * LVEF 55%. * Atypical septal motion consistent with post-operative status. * Indeterminate diastolic function. * Definity echo contrast was used. Right Ventricle * Right ventricular structure and function are not well evaluated. Left Atrium * Moderately dilated left atrium. Right Atrium * Right atrium is not well visualized. Aortic Valve * No aortic regurgitation. * Trileaflet aortic valve. * Mildly calcified aortic valve leaflets. * No aortic stenosis. Mitral Valve * No mitral regurgitation. * Mitral valve not well visualized. * No mitral stenosis. Tricuspid Valve * Tricuspid valve not well visualized. * Mild tricuspid regurgitation. * Estimated RA pressure is 3 mmHg. * Estimated RVSP is 56 mmHg. * Moderate pulmonary hypertension. Pulmonic Valve * Pulmonic valve is not well visualized. * No pulmonic stenosis. * No pulmonic regurgitation. Pulmonary Artery * Pulmonary artery not well visualized. Aorta * Normally sized aortic root. * Proximal descending thoracic aorta not well visualized. Pericardium * There is no pericardial effusion present. Interatrial Septum * No evidence of PFO by color Doppler. IVC * Normal IVC dimensions and inspiratory collapse. Consult Discharge Plan - Plan Referrals: Marissa Pitts CNP [Primary Care Provider] - (1) Acute exacerbation of CHF (congestive heart failure) Qualifiers: Heart failure type: diastolic Qualified Code(s): I50.33 - Acute on chronic diastolic (congestive) heart failure (2) Hypertension Qualifiers: Hypertension type: essential hypertension Qualified Code(s): I10 - Essential (primary) hypertension (4) Atrial fibrillation Qualifiers: Qualified Code(s): I48.91 - Unspecified atrial fibrillation (5) Type 2 diabetes mellitus Qualifiers: Diabetes mellitus extermination supervisor insulin use: with extermination supervisor use Diabetes mellitus complication status: with skin complications Diabetes mellitus complication detail: with foot ulcer Qualified Code(s): E11.621 - Type 2 diabetes mellitus with foot ulcer; L97.509 - Non-pressure chronic ulcer of other part of unspecified foot with unspecified severity; Z79.4 - care home (current) use of insulin
--- NOTE | 2019-01-08 15:51 | Electrocardiograph Report ---
[address] [address] Test Date: 2019-01-07 Pat Name: Giancarlo Mercedes Department: [id number] Room: 3B Gender: M Helmet Binder: : 1965 Requested By: Driss Rosario Order Number: [id number] Reading MD: David Roberts Measurements Intervals Randall Rate: 103 P: -67 MI: 243 QRS: -7 QRSD: 140 T: 157 QT: 401 QTc: 525 Interpretive Statements Probable atrial fibrillation Nonspecific intraventricular conduction delay Borderline repolarization abnormality Electronically Signed On 01-08-2019 15:50:10 EDT by David Roberts
[2019-01-08] MEDS: Doxycycline 100 MG CAPSULE PO SCH ×2 (17:35→20:45)
[2019-01-08] MEDS: cefTRIAXone 1,000 MG in Water for inj. (sterile) 20 ML 10 ML IVP SCH (17:35)
[2019-01-09 06:54] LABS: Basophils % 0.4 %; Eosinophils # 0.2 K/mcL (0.0-0.6); Eosinophils % 2.8 %; Hematocrit 37.4 % (37.5-50.1); Hemoglobin 11.1 g/dL (12.9-16.9); Immature Granulocytes % 0.4 % (0-4); Lymphocytes # 1.5 K/mcL (0.6-4.6); Lymphocytes % 17.3 %; Mean Corpuscular HGB Conc 29.7 g/dL (31.6-35.5); Mean Corpuscular Hemoglobin 23.5 pg (28.0-33.3); Mean Corpuscular Volume 79.1 fL (83.0-100.0); Mean Platelet Volume 9.9 fL (9.4-12.4); Monocytes # 0.7 K/mcL (0.0-1.3); Monocytes % 7.9 %; Platelet Count 221 K/mcL (140-400); Red Blood Count 4.73 M/mcL (4.19-5.50); Segmented Neutrophils % 71.2 %; White Blood Count 8.4 K/mcL (4.3-11.1)
[2019-01-09 07:14] LABS: Calcium 9.8 mg/dL (8.6-10.3); Magnesium 2.2 mg/dL (1.6-2.6); Potassium 4.6 mEq/L (3.5-5.1)
[2019-01-09] MEDS: Insulin LISPRO 300 UNITS/3 ML VIAL SQ SCH ×5 (08:07→20:52)
[2019-01-09] MEDS: cefTRIAXone 1,000 MG in Water for inj. (sterile) 20 ML 10 ML IVP SCH (08:08)
[2019-01-09] MEDS: Furosemide 40 MG/4 ML VIAL IVP SCH (08:08)
[2019-01-09] MEDS: Diltiazem CD (24hr) 120 MG CAPSULE PO SCH (08:08)
[2019-01-09] MEDS: metOLazone 5 MG TABLET PO SCH (08:08)
[2019-01-09] MEDS: Cholecalciferol (D-3) 1,000 UNIT TABLET PO SCH (08:08)
[2019-01-09] MEDS: *HR* Rivaroxaban 10 MG TABLET PO SCH (08:08)
[2019-01-09] MEDS: Isosorbide MONOnitrate (24 HR) 30 MG TAB.ER.24H PO SCH (08:08)
[2019-01-09] MEDS: Aspirin Enteric Coated 81 MG Tablet PO SCH (08:08)
[2019-01-09] MEDS: cloNIDine HCl 0.1 MG TABLET PO SCH ×3 (08:08→20:57)
[2019-01-09] MEDS: Doxycycline 100 MG CAPSULE PO SCH ×2 (08:08→20:57)
[2019-01-09] MEDS: Cyanocobalamin (B-12) 1,000 MCG TABLET PO SCH (08:09)
--- NOTE | 2019-01-09 11:35 | Podiatry Consult Note ---
Date of Encounter: 01/09/19 Time of Encounter: 10:45 Assessment and Plan (1) Ulcer of left foot Current visit: Yes Status: Acute Assessment: -Ulcer limited to skin breakdown left dorsal aspect of foot, periwood with erythema, wound base with brown eschar noted -No active drainage noted at this time but there does appear to be some dry serous drainage form the area -No lymphangitis noted -WBC 8.4 -Afebrile -Weak palapble pulses, cap refill less than 3 seconds -2+ edema to bilateral extremities Plan: -ESR, CRP -X-ray left foot -Will continue to monitor Qualifiers: Non-pressure ulcer stage: limited to breakdown of skin Qualified Code(s): L97.521 - Non-pressure chronic ulcer of other part of left foot limited to breakdown of skin (2) Type 2 diabetes mellitus Current visit: Yes Status: Chronic Assessment: -Blood glucose 295 -Hgb A1c 9.8 Plan: -Tight glycemic control to prevent further complication and promote wound healing, to be managed by primary Qualifiers: 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 Mercedes is a 53 year old male who presented to the Emergency Room (ER) on 01/07/2019 with complaints of chest pain, shortness of breath, and swelling in his legs. Patient does have a pervious medical history of arthritis, atrial fibrillation, CHF, COPD, coronary artery disease, CVA, diabetes, GERD, hyperlipidemia, hypertension, myocardial infarction, and renal disease. Patient reported he was evaluated at another facility a few days before coming to the ER for similar symptoms and had blisters to his legs at that time. He does take Lasix but reports it was not helping his symptoms. Patient started on Ceftriaxone and Doxycycline and admitted for further evaluation. Podiatry was consulted due to possible cellulitlis and abscess left dorsal aspect of foot. He is known to Podiatry and has been treated by Dr. Cantu in the past. Upon my examination patient is alert and oriented, no acute distress noted, resting in bed. He denies any chest pain or shortness of breath at this time. He does report some occasional calf tenderness. He reports fever, chill s, and nausea for the last 3-4 days, but has been afebrile since his arrival to the hospital. He denies any n/v/d. Patient does report he uses snuff, previous smoker and denies alcohol or illicit drug use. Past Med Surg Social Fam HX - Past Medical History Medical history: arthritis, atrial fibrillation, CHF, COPD, coronary artery disease, CVA, diabetes, GERD, hyperlipidemia, hypertension, myocardial infarction, renal disease Psychiatric history: anxiety, depression - Past Surgical History Surgical History: cataract, coronary bypass (CABG), orthopedic, other, other Additional surgical history: hip replacement 2005. 4 coronary bypass 2006. bilat amputation 4th toe. 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 - Social History Smoking Status: Former smoker Smokeless Tobacco Status: Yes (snuff) Alcohol use: none Drug use: none - Family History Mother Family Member Ethnicity: Non- Living Status: Hx Family Cardiac Disorders: Yes Hx Family Respiratory Disorders: Yes (Emphysema) Hx Family Cancer: No Hx Family GI Disorders: No Hx Family Genitourinary Disorders: No Hx Family Endocrine Disorder: No Hx Family Musculoskeletal Disorders: No Hx Family Neuromuscular Disorders: No Hx Family Neurologic Disorders: No Hx Family HEENT Disorders: No Hx Family Autoimmune Disorders: No Hx Family Reproductive Disorders: No Hx Family Psychosocial Disorders: No Hx Family Medical Disorders: No Father Family Member Ethnicity: Non- Living Status: Hx Family Cardiac Disorders: Yes ([place]) Hx Family Respiratory Disorders: No Hx Family Cancer: No Hx Family GI Disorders: Yes (ULCERS) Hx Family Genitourinary Disorders: No Hx Family Endocrine Disorder: No Hx Family Musculoskeletal Disorders: No Hx Family Neuromuscular Disorders: No Hx Family Neurologic Disorders: No Hx Family HEENT Disorders: No Hx Family Autoimmune Disorders: No Hx Family Reproductive Disorders: No Hx Family Psychosocial Disorders: No Hx Family Medical Disorders: No Brother Family Member Ethnicity: Non- Living Status: Still Living Hx Family Cardiac Disorders: Yes (HD) Hx Family Respiratory Disorders: Yes (COPD) Sister Family Member Ethnicity: Non- Living Status: Still Living Hx Family Endocrine Disorder: Yes (T2DM) Medications and Allergies Aspirin [Lo-Dose Aspirin EC] 81 mg PO QAM 03/11/16 [History] Atorvastatin [Lipitor] 40 mg PO HS 03/11/16 [History] Diltiazem CD (24hr) [Cardizem CD] 120 mg PO DAILY #30 tab 03/07/17 [Rx] Isosorbide MONOnitrate (24 HR) [Imdur] 30 mg PO DAILY #30 tab 03/07/17 [Rx] Rivaroxaban [Xarelto] 20 mg PO DAILY 04/22/17 [History] Cetirizine HCl [Zyrtec] 10 mg PO DAILY 05/08/17 [History] cloNIDine HCl [CloNIDine HCl] 0.1 mg PO TID 12/16/17 [History] Metoprolol [Lopressor] 25 mg PO BID 12/22/17 [History] Insulin Human Regular [HumuLIN R] 80 unit SQ BID 08/25/18 [History] Fluticasone/Vilanterol [Breo Ellipta 100-25 Mcg INH] 1 each IH DAILY 11/05/18 [History] Lisinopril [Zestril] 10 mg PO DAILY 11/05/18 [History] Ascorbic Acid [Vitamin C] 500 mg PO DAILY #30 capsule 11/07/18 [Rx] Cholecalciferol (D-3) [Vitamin D] 2,000 unit PO DAILY #60 tablet 11/07/18 [Rx] Cyanocobalamin (B-12) [Vitamin B12] 1,000 mcg PO DAILY #30 tablet 11/07/18 [Rx] Furosemide [Lasix] 40 mg PO DAILY #30 tablet 11/07/18 [Rx] Ferrous Sulfate 325 mg PO DAILY 12/23/18 [History] Albuterol Sulfate [Ventolin Hfa] 2 puff IH BID 01/07/19 [History] Budesonide/Formoterol 160/4.5 [Symbicort 160/4.5] 2 puff IH Q4H PRN 01/07/19 [History] Allergy/AdvReac Type Severity Reaction Status Date / Time No Known Allergies Allergy Verified 09/11/18 14:14 All Systems Reviewed: The remainder of the systems were reviewed and are negative - Constitutional Additional comments: As per HPI Physical Exam - Constitutional Vitals: Temp Pulse Resp BP Pulse Ox 97.8 F 98 16 130/73 93 01/09/19 07:03 01/09/19 07:03 01/09/19 07:03 01/09/19 07:03 01/09/19 07:03 Exam: Constitutional: Alert and oriented x 3 male, no acute distress noted, well nourished. Vascular: Weak palpable PT/DP pulses, cap refill less than 3 seconds, 2/4 edema noted to lower extremities, venous status ulcers noted and healing, no pain with calf squeeze bilaterally, skin warm from tibia to toes, right toes #3 and #4 amputated Neurological: Absent protective sensation, abnormal proprioception, abnormal plantar reflex Dermatological: Ulcer limited to skin breakdown left dorsal aspect of foot, periwood with erythema, wound base with brown eschar noted, no active drainage noted at this time but there does appear to be some dry serous drainage form the area. No lymphangitis noted. Multiple healing scabbed areas noted throughout the legs including the left foot, left chacon, and 3 lesions on the right chacon. The lesions appear to have unroofed, no drainage noted, and no signs of infection. Patient does have +2 pitting edema up to the leg. Musculoskeletal: 4/5 muscle strength and normal muscle tone noted Results - Labs Result Diagrams: 01/09/19 06:06 01/09/19 06:06 Labs: Abnormal lab results Hgb 11.1 g/dL (12.9-16.9) L 01/09/19 06:06 Hct 37.4 % (37.5-50.1) L 01/09/19 06:06 MCV 79.1 fL (83.0-100.0) L 01/09/19 06:06 MCH 23.5 pg (28.0-33.3) L 01/09/19 06:06 MCHC 29.7 g/dL (31.6-35.5) L 01/09/19 06:06 RDW 17.0 % (11.5-14.5) H 01/09/19 06:06 Sodium 133 mEq/L (136-145) L 01/09/19 06:06 Chloride 96 mEq/L (98-107) L 01/09/19 06:06 Carbon Dioxide 30 mEq/L (23-29) H 01/09/19 06:06 BUN 36 mg/dL (6-20) H 01/09/19 06:06 2.19 mg/dL (0.70-1.30) H 01/09/19 06:06 Est GFR ( Amer) 38 (> 60) L 01/09/19 06:06 Est GFR (Non-Af Amer) 31 (> 60) L 01/09/19 06:06 Glucose 295 mg/dL (70-105) H 01/09/19 06:06 POC Glucose 348 mg/dL (70-99) H 01/08/19 20:44 9.8 % (-5.6) H 01/08/19 05:24 304 (280-300) H 01/07/19 14:45 0.04 ng/mL (< 0.04) H* 01/08/19 05:24 B-Natriuretic Peptide 288 pg/mL (Less than 100) H 01/07/19 14:45 H & H 01/09/19 Range/Units 06:06 Hgb 11.1 L (12.9-16.9) g/dL Hct 37.4 L (37.5-50.1) % All other labs normal. Consult Discharge Plan - Plan Referrals: Marissa Pitts, ANDREW [Primary Care Provider] -
[2019-01-09] MEDS ORDERED: Insulin LISPRO 300 UNITS/3 ML VIAL SQ ONE (11:37)
[2019-01-09] MEDS: Insulin DETEMIR 100 UNIT/ML X5UNITS SQ SCH ×2 (12:17→20:57)
--- NOTE | 2019-01-09 14:05 | Internal Med Progress Note ---
Hospitalist Progress Note - Encounter Date of Encounter: 01/09/19 Time of Encounter: 14:03 - Subjective Interval History: Elevated patient earlier today. Continues to have lower extremity swelling. Erythema is improving. Shortness of breath is also improving. Denies any fevers or chills overnight. - Exam Vitals: Temp Pulse Resp BP Pulse Ox 97.5 F L 69 16 161/76 96 01/09/19 11:30 01/09/19 11:30 01/09/19 11:30 01/09/19 11:30 01/09/19 11:30 Exam: General: Patient is alert, mild distress, oriented x 3 ENT: Mucous membranes moist Respiratory: Good respiratory effort. Normal breath sounds. No wheezing or crackles. Cardiovascular: Regular rate and rhythm. s1 and s2 normal No clicks, rubs, gallops, or murmurs. Bilateral pitting pedal edema Abdomen: Abdomen is soft, nontender. Bowel sounds are present Musculoskeletal: Spontaneously moving all extremities Skin: warm, dry, intact. Erythema noted on bilateral lower extremities but more prominent on the left lower extremity especially over the left foot dorsal surface with open ulcer and swelling noted. Neuro: Alert oriented x 3 normal cranial nerves, no focal deficits - Assessment and Plan (1) Acute exacerbation of CHF (congestive heart failure) Current Visit: Yes Status: Acute (2) Morbid obesity Current Visit: Yes Status: Chronic (3) Type 2 diabetes mellitus Current Visit: Yes Status: Chronic (4) Hypertension Current Visit: Yes Status: Chronic (5) DVT prophylaxis Current Visit: Yes Status: Acute (6) Atrial fibrillation Current Visit: Yes Status: Acute (7) Bilateral lower leg cellulitis Current Visit: Yes Status: Acute (8) Ulcer of left foot Current Visit: Yes Status: Acute DVT Prophylaxis: Continue Xarelto - Summary of Assessment and Plan Summary of Assessment and Plan: Acute exacerbation of diastolic congestive heart failure: Patient has had good response to Lasix so far. -5 L fluid balance. Creatinine 2.19 today. Will transition to oral Lasix. Continue metolazone. Chronic kidney disease Ulcer on left foot dorsum: Consulted podiatry for evaluation. Recommend x-ray of the left foot. Will follow results. Cellulitis involving bilateral lower extremities: Continue doxycycline and ceftriaxone. Chronic kidney disease stage III: Baseline creatinine is between 1.5 and 2.5. Continue monitoring greater than function. Creatinine trending up now. Transition to oral Lasix. Diabetes mellitus type 2: Poorly controlled. Add long-acting insulin and increase sliding scale coverage to high correctional dosing. Monitor blood sugars closely. Atrial fibrillation: Rate controlled. Continue Cardizem. Continue Xarelto for anticoagulation. Moderate risk for complications - Time Spent with Patient Total time spent is greater than 50% in coordination of care (as documented) at patient's floor/unit and/or counseling patient: Internal Medicine: Result - Labs CBC & Chem 7: 01/09/19 06:06 01/09/19 06:06 Labs: Short CBC 01/09/19 Range/Units 06:06 WBC 8.4 (4.3-11.1) K/mcL Hgb 11.1 L (12.9-16.9) g/dL Hct 37.4 L (37.5-50.1) % Plt Count 221 (140-400) K/mcL Neutrophils # 6.0 (1.6-8.9) K/mcL BMP 01/09/19 06:06 Sodium 133 L Potassium 4.6 Chloride 96 L Carbon Dioxide 30 H BUN 36 H Creatinine 2.19 H Glucose 295 H Calcium 9.8 Consult Discharge Plan - Plan Referrals: Marissa Pitts, ENDOSCOPIC TECHNICIAN [Primary Care Provider] - (1) Acute exacerbation of CHF (congestive heart failure) Qualifiers: Heart failure type: diastolic Qualified Code(s): I50.33 - Acute on chronic diastolic (congestive) heart failure (3) Type 2 diabetes mellitus Qualifiers: Diabetes mellitus custodial insulin use: with long term care pharmacist use Diabetes mellitus complication status: with skin complications Diabetes mellitus complication detail: with foot ulcer Qualified Code(s): E11.621 - Type 2 diabetes mellitus with foot ulcer; L97.509 - Non-pressure chronic ulcer of other part of unspecified foot with unspecified severity; Z79.4 - long term care pharmacist (current) use of insulin (4) Hypertension Qualifiers: Hypertension type: essential hypertension Qualified Code(s): I10 - Essential (primary) hypertension (6) Atrial fibrillation Qualifiers: Qualified Code(s): I48.91 - Unspecified atrial fibrillation (8) Ulcer of left foot Qualifiers: Non-pressure ulcer stage: limited to breakdown of skin Qualified Code(s): L97.521 - Non-pressure chronic ulcer of other part of left foot limited to breakdown of skin
[2019-01-09] MEDS: Furosemide 40 MG TABLET PO SCH (17:34)
[2019-01-10 02:21] LABS: Basophils % 0.3 %; Eosinophils # 0.2 K/mcL (0.0-0.6); Eosinophils % 2.2 %; Hematocrit 38.1 % (37.5-50.1); Hemoglobin 11.7 g/dL (12.9-16.9); Immature Granulocytes % 0.4 % (0-4); Lymphocytes # 1.7 K/mcL (0.6-4.6); Lymphocytes % 15.5 %; Mean Corpuscular HGB Conc 30.7 g/dL (31.6-35.5); Mean Corpuscular Hemoglobin 23.3 pg (28.0-33.3); Mean Corpuscular Volume 75.7 fL (83.0-100.0); Mean Platelet Volume 10.1 fL (9.4-12.4); Monocytes # 0.8 K/mcL (0.0-1.3); Monocytes % 7.5 %; Neutrophils # 8.2 K/mcL (1.6-8.9); Platelet Count 261 K/mcL (140-400); Red Blood Count 5.03 M/mcL (4.19-5.50); Segmented Neutrophils % 74.1 %
[2019-01-10 02:41] LABS: Calcium 9.7 mg/dL (8.6-10.3); Magnesium 2.1 mg/dL (1.6-2.6); Phosphorous 4.1 mg/dL (2.7-4.5); Potassium 4.5 mEq/L (3.5-5.1)
[2019-01-10] MEDS: Cyanocobalamin (B-12) 1,000 MCG TABLET PO SCH (08:26)
[2019-01-10] MEDS: Diltiazem CD (24hr) 120 MG CAPSULE PO SCH (08:26)
[2019-01-10] MEDS: Aspirin Enteric Coated 81 MG Tablet PO SCH (08:26)
[2019-01-10] MEDS: Doxycycline 100 MG CAPSULE PO SCH ×2 (08:26→20:38)
[2019-01-10] MEDS: Furosemide 40 MG TABLET PO SCH ×2 (08:26→17:45)
[2019-01-10] MEDS: Isosorbide MONOnitrate (24 HR) 30 MG TAB.ER.24H PO SCH (08:26)
[2019-01-10] MEDS: cloNIDine HCl 0.1 MG TABLET PO SCH ×3 (08:26→20:38)
[2019-01-10] MEDS: cefTRIAXone 1,000 MG in Water for inj. (sterile) 20 ML 10 ML IVP SCH (08:27)
[2019-01-10] MEDS: Insulin DETEMIR 100 UNIT/ML X5UNITS SQ SCH ×2 (08:27→20:38)
[2019-01-10] MEDS: Cholecalciferol (D-3) 1,000 UNIT TABLET PO SCH (08:27)
[2019-01-10] MEDS: metOLazone 5 MG TABLET PO SCH (08:27)
[2019-01-10] MEDS: *HR* Rivaroxaban 15 MG TABLET PO SCH (08:27)
[2019-01-10] MEDS: Insulin LISPRO 300 UNITS/3 ML VIAL SQ SCH ×7 (08:27→20:40)
[2019-01-10] MEDS: Gabapentin 100 MG CAPSULE PO SCH ×3 (14:18→20:38)
--- NOTE | 2019-01-10 15:42 | Internal Med Progress Note ---
Hospitalist Progress Note - Encounter Date of Encounter: 01/10/19 Time of Encounter: 15:37 - Subjective Interval History: Elevated patient earlier today. He is complaining of burning pain in his lower extremities. No swelling has improved. No fever or chills reported overnight. - Exam Vitals: Temp Pulse Resp BP Pulse Ox 98.3 F 62 16 146/81 98 01/10/19 15:10 01/10/19 15:10 01/10/19 15:10 01/10/19 15:10 01/10/19 15:10 Exam: General: Patient is alert, no acute distress, oriented x 3 ENT: Mucous membranes moist Respiratory: Good respiratory effort. Normal breath sounds. No wheezing or crackles. Cardiovascular: Regular rate and rhythm. s1 and s2 normal No clicks, rubs, gallops, or murmurs. Improving bilateral pedal edema Abdomen: Abdomen is soft, nontender. Bowel sounds are present Musculoskeletal: Swelling over the dorsum of his left foot is improving. Ulcer present with clean base. No discharge noted today. Tender to palpation. Skin: warm, dry, intact. Neuro: Alert oriented x 3 normal cranial nerves, no focal deficits - Assessment and Plan (1) Acute exacerbation of CHF (congestive heart failure) Current Visit: Yes Status: Acute (2) Morbid obesity Current Visit: Yes Status: Chronic (3) Type 2 diabetes mellitus Current Visit: Yes Status: Chronic (4) Hypertension Current Visit: Yes Status: Chronic (5) DVT prophylaxis Current Visit: Yes Status: Acute (6) Atrial fibrillation Current Visit: Yes Status: Chronic (7) Bilateral lower leg cellulitis Current Visit: Yes Status: Acute (8) Ulcer of left foot Current Visit: Yes Status: Acute DVT Prophylaxis: Continue Xarelto - Summary of Assessment and Plan Summary of Assessment and Plan: Acute exacerbation of diastolic congestive heart failure: Doing well with oral Lasix. -7 L fluid balance so far. Ulcer on left foot dorsum: Podiatry has evaluated patient. Continue current antibiotics. Foot MRI ordered and it shows possible abscess. We will follow podiatry recommendations. Cellulitis involving bilateral lower extremities: On doxycycline and cef triaxone. Chronic kidney disease stage III: Stable. Continue oral Lasix Diabetes mellitus type 2: Better controlled today. A.m. blood glucose was 173. We will continue current insulin regimen. I just further based on today's insulin requirements Atrial fibrillation: Rate controlled. Continue Cardizem. On Xarelto for anticoagulation Moderate risk for complications - Time Spent with Patient Total time spent is greater than 50% in coordination of care (as documented) at patient's floor/unit and/or counseling patient: Internal Medicine: Result - Labs CBC & Chem 7: 01/10/19 02:02 01/10/19 02:02 Labs: Short CBC 01/10/19 Range/Units 02:02 WBC 11.0 (4.3-11.1) K/mcL Hgb 11.7 L (12.9-16.9) g/dL Hct 38.1 (37.5-50.1) % Plt Count 261 (140-400) K/mcL Neutrophils # 8.2 (1.6-8.9) K/mcL BMP 01/10/19 02:02 Sodium 133 L Potassium 4.5 Chloride 97 L Carbon Dioxide 27 BUN 39 H Creatinine 2.13 H Glucose 249 H Calcium 9.7 - Impressions Impressions Chest X-Ray 01/07/19 14:32 IMPRESSION: Possible small left pleural effusion or basilar atelectasis. Cardiomegaly. Pulmonary vascular congestion. D/ / 01/07/2019 16:19:26 Yuniel [facility]ke[email or web address] Interpreting Provider: Yuniel Mckeon MD Foot X-Ray 01/09/19 12:05 IMPRESSION: Moderate generalize soft tissue swelling with possible soft tissue gas formation medial to the 5th MTP joint-suggesting cellulitis. No plain film evidence to suggest osteomyelitis. RECOMMENDATION: If osteomyelitis is of clinical concern, MRI the foot would be recommended for further evaluation. D/ / Miles Hall MD / Miles Hall MD Interpreting Provider: Miles Hall MD Foot MRI 01/10/19 23:22 IMPRESSION: 1. Diffuse mid and forefoot edema which may relate to bland edema versus cellulitis. 2. At the dorsal lateral aspect of the forefoot there is an ulceration with a sinus tract that extends approximately 2 cm deep to the dorsal aspect of the 4th digit amputation margin. Extending anterior from this there is an irregular partially loculated 2.5 cm fluid collection which may represent a developing abscess. 3. The mid and forefoot demonstrate normal signal intensity. 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 No evidence of osteomyelitis. D/ / 01/10/2019 14:30:30 Maximino Gore MD / [facility] Interpreting Provider: Maximino Gore MD Consult Discharge Plan - Plan Referrals: Marissa Pitts CNP [Primary Care Provider] - 01/16/19 12:15 pm (1) Acute exacerbation of CHF (congestive heart failure) Qualifiers: Heart failure type: diastolic Qualified Code(s): I50.33 - Acute on chronic diastolic (congestive) heart failure (3) Type 2 diabetes mellitus Qualifiers: Diabetes mellitus fci insulin use: with pipelines supervisor use Diabetes mellitus complication status: with skin complications Diabetes mellitus complication detail: with foot ulcer Qualified Code(s): E11.621 - Type 2 diabetes mellitus with foot ulcer; L97.509 - Non-pressure chronic ulcer of other part of unspecified foot with unspecified severity; Z79.4 - penitentiary (current) use of insulin (4) Hypertension Qualifiers: Hypertension type: essential hypertension Qualified Code(s): I10 - Essential (primary) hypertension (6) Atrial fibrillation Qualifiers: Atrial fibrillation type: paroxysmal Qualified Code(s): I48.0 - Paroxysmal atrial fibrillation (8) Ulcer of left foot Qualifiers: Non-pressure ulcer stage: limited to breakdown of skin Qualified Code(s): L97.521 - Non-pressure chronic ulcer of other part of left foot limited to breakdown of skin
[2019-01-10] MEDS: Budesonide/Formoterol 160/4.5 1 PUFF INH IH SCH (21:27)
[2019-01-11 06:06] LABS: Basophils % 0.3 %; Eosinophils # 0.2 K/mcL (0.0-0.6); Eosinophils % 2.1 %; Hematocrit 37.2 % (37.5-50.1); Hemoglobin 11.4 g/dL (12.9-16.9); Immature Granulocytes % 0.3 % (0-4); Lymphocytes # 1.2 K/mcL (0.6-4.6); Lymphocytes % 12.9 %; Mean Corpuscular HGB Conc 30.6 g/dL (31.6-35.5); Mean Corpuscular Hemoglobin 23.8 pg (28.0-33.3); Mean Corpuscular Volume 77.8 fL (83.0-100.0); Mean Platelet Volume 10.1 fL (9.4-12.4); Monocytes # 0.7 K/mcL (0.0-1.3); Monocytes % 7.6 %; Neutrophils # 7.3 K/mcL (1.6-8.9); Platelet Count 231 K/mcL (140-400); Red Blood Count 4.78 M/mcL (4.19-5.50); Red Cell Distribution Width 17.1 % (11.5-14.5); Segmented Neutrophils % 76.8 %; White Blood Count 9.6 K/mcL (4.3-11.1)
[2019-01-11 06:22] LABS: Calcium 9.7 mg/dL (8.6-10.3); Magnesium 2.3 mg/dL (1.6-2.6); Phosphorous 4.5 mg/dL (2.7-4.5); Potassium 4.5 mEq/L (3.5-5.1)
[2019-01-11] MEDS: Budesonide/Formoterol 160/4.5 1 PUFF INH IH SCH ×2 (07:30→20:49)
[2019-01-11] MEDS ORDERED: Insulin DETEMIR 100 UNIT/ML X5UNITS SQ SCH (09:00)
[2019-01-11] MEDS: cefTRIAXone 1,000 MG in Water for inj. (sterile) 20 ML 10 ML IVP SCH (09:04)
[2019-01-11] MEDS: Insulin LISPRO 300 UNITS/3 ML VIAL SQ SCH ×6 (09:05→20:38)
[2019-01-11] MEDS: Isosorbide MONOnitrate (24 HR) 30 MG TAB.ER.24H PO SCH (09:06)
[2019-01-11] MEDS: Doxycycline 100 MG CAPSULE PO SCH ×2 (09:06→20:37)
[2019-01-11] MEDS: *HR* Rivaroxaban 15 MG TABLET PO SCH (09:06)
[2019-01-11] MEDS: Aspirin Enteric Coated 81 MG Tablet PO SCH (09:06)
[2019-01-11] MEDS: Cyanocobalamin (B-12) 1,000 MCG TABLET PO SCH (09:06)
[2019-01-11] MEDS: Furosemide 40 MG TABLET PO SCH ×2 (09:06→16:17)
[2019-01-11] MEDS: Gabapentin 100 MG CAPSULE PO SCH ×3 (09:07→20:37)
[2019-01-11] MEDS: Diltiazem CD (24hr) 120 MG CAPSULE PO SCH (09:07)
[2019-01-11] MEDS: cloNIDine HCl 0.1 MG TABLET PO SCH ×3 (09:07→20:37)
[2019-01-11] MEDS: Cholecalciferol (D-3) 1,000 UNIT TABLET PO SCH (09:07)
--- NOTE | 2019-01-11 09:27 | Podiatry Progress Note ---
Date of Encounter: 01/11/19 Time of Encounter: 09:15 - Assessment and Plan (1) Ulcer of left foot Current Visit: Yes Status: Acute Assessment: -WBC 9.6 -ESR 58, CRP 13 -MRI MR/MR foot LT wo con IMPRESSION: 1. Diffuse mid and forefoot edema which may relate to bland edema versus cellulitis. 2. At the dorsal lateral aspect of the forefoot there is an ulceration with a sinus tract that extends approximately 2 cm deep to the dorsal aspect of the 4th digit amputation margin. Extending anterior from this there is an irregular partially loculated 2.5 cm fluid collection which may represent a developing abscess. 3. The mid and forefoot demonstrate normal signal intensity. 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 No evidence of osteomyelitis. Plan: -I&D left foot abscess by Dr. Cantu today -Remain NPO -Nature of the procedure, risks verses benefits, potential complications, consequences of surgery, and condition discussed. All questions and concerns addressed. Consent signed and placed in chart. Qualifiers: Non-pressure ulcer stage: limited to breakdown of skin Qualified Code(s): L97.521 - Non-pressure chronic ulcer of other part of left foot limited to breakdown of skin (2) Type 2 diabetes mellitus Current Visit: Yes Status: Chronic Assessment: -Blood glucose 285 -Hgb A1c 9.8 Plan: -Tight glycemic control to prevent further complication and promote wound healing, to be managed by primary Qualifiers: Diabetes mellitus supervisor long goods insulin use: with supervisor long goods use Diabetes m ellitus complication status: with skin complications Diabetes mellitus co mplication detail: with foot ulcer Qualified Code(s): E11.621 - Type 2 diabetes mellitus with foot ulcer; L97.509 - Non-pressure chronic ulcer of other part of unspecified foot with unspecified severity; Z79.4 - prison (current) use of insulin Subjective Interval history: Patient is alert and oriented sitting on edge of bed and no acute distress noted. Patient denies any chest pain, shortness of breath, or calf pain. He denies any fever, chills, nausea, or vomiting. Patient is aware of results of MRI and plan for surgical intervention, I&D left foot abscess bu Dr. Cantu, and is in agreement. Objective - Vital Signs Vital Signs: Vital Signs Temp Pulse Resp BP Pulse Ox 01/11/19 07:36 97.6 F 80 15 138/85 97 01/11/19 07:32 16 97 01/11/19 03:28 97.8 F 75 14 149/85 96 01/10/19 23:23 97.5 F L 100 16 172/98 97 01/10/19 21:29 16 98 01/10/19 19:19 98.0 F 87 16 165/94 99 01/10/19 15:10 98.3 F 62 16 146/81 98 01/10/19 10:52 97.9 F 59 17 132/60 96 Intake and Output 01/10/19 01/11/19 01/11/19 23:59 07:59 15:59 Intake Total 720 / 970 Output Total 1270 / 2370 Balance -550 / -1400 Intake: Oral 720 / 960 Output: Urine 1270 / 2370 Other: Meal Dinner Percent of Meal Consumed 100% Weight 132 kg Blood Glucose* 324 238 Patient Weight 01/11/19 23:59 Weight 132 kg - Exam Exam: Constitutional: Alert and oriented x 3 male, no acute distress noted, well nourished. Musculoskeletal: 4/5 muscle strength and normal muscle tone noted - Lab Result Diagrams: 01/11/19 05:42 01/11/19 05:42 Labs: Abnormal lab results Hgb 11.4 g/dL (12.9-16.9) L 01/11/19 05:42 Hct 37.2 % (37.5-50.1) L 01/11/19 05:42 MCV 77.8 fL (83.0-100.0) L 01/11/19 05:42 MCH 23.8 pg (28.0-33.3) L 01/11/19 05:42 MCHC 30.6 g/dL (31.6-35.5) L 01/11/19 05:42 RDW 17.1 % (11.5-14.5) H 01/11/19 05:42 ESR 58 mm/hr (0-10) H 01/09/19 06:06 Sodium 133 mEq/L (136-145) L 01/11/19 05:42 Chloride 97 mEq/L (98-107) L 01/10/19 02:02 Carbon Dioxide 30 mEq/L (23-29) H 01/09/19 06:06 BUN 41 mg/dL (6-20) H 01/11/19 05:42 2.06 mg/dL (0.70-1.30) H 01/11/19 05:42 Est GFR ( Amer) 41 (> 60) L 01/11/19 05:42 Est GFR (Non-Af Amer) 34 (> 60) L 01/11/19 05:42 Glucose 285 mg/dL (70-105) H 01/11/19 05:42 POC Glucose 324 mg/dL (70-99) H 01/10/19 19:19 9.8 % (-5.6) H 01/08/19 05:24 304 (280-300) H 01/07/19 14:45 0.04 ng/mL (< 0.04) H* 01/08/19 05:24 13 mg/L (Less than 10) H 01/10/19 02:02 B-Natriuretic Peptide 288 pg/mL (Less than 100) H 01/07/19 14:45 Consult Discharge Plan - Plan Referrals: Marissa Pitts CNP [Primary Care Provider] - 01/16/19 12:15 pm
--- NOTE | 2019-01-11 11:37 | Internal Med Progress Note ---
Hospitalist Progress Note - Encounter Date of Encounter: 01/11/19 Time of Encounter: 11:34 - Subjective Interval History: Patient is awake and alert. Comfortable. Denies any new complaints at this time. Tolerating diet well. He is scheduled to undergo surgery later today. Shortness of breath has improved. Lower extremity swelling continues to impr ove. - Exam Vitals: Temp Pulse Resp BP Pulse Ox 97.6 F 64 15 128/80 98 01/11/19 11:28 01/11/19 11:28 01/11/19 11:28 01/11/19 11:28 01/11/19 11:28 Exam: General: Patient is alert, no acute distress, oriented x 3 ENT: Mucous membranes moist Respiratory: Good respiratory effort. Normal breath sounds. No wheezing or crackles. Cardiovascular: Regular rate and rhythm. s1 and s2 normal No clicks, rubs, gall ops, or murmurs. Mild pedal edema bilaterally Abdomen: Abdomen is soft, nontender. Bowel sounds are present Musculoskeletal: Spontaneously moving all extremities Skin: Improved swelling on the left foot with ulcer on the dorsum stable. Neuro: Alert oriented x 3 normal cranial nerves, no focal deficits - Assessment and Plan (1) Acute exacerbation of CHF (congestive heart failure) Current Visit: Yes Status: Acute (2) Morbid obesity Current Visit: Yes Status: Chronic (3) Type 2 diabetes mellitus Current Visit: Yes Status: Chronic (4) Hypertension Current Visit: Yes Status: Chronic (5) DVT prophylaxis Current Visit: Yes Status: Acute (6) Atrial fibrillation Current Visit: Yes Status: Chronic (7) Bilateral lower leg cellulitis Current Visit: Yes Status: Acute (8) Ulcer of left foot Current Visit: Yes Status: Acute DVT Prophylaxis: Continue Xarelto - Summary of Assessment and Plan Summary of Assessment and Plan: Acute exacerbation of diastolic congestive heart failure: Transition to oral Lasix. Continues to have good urine output. Ulcer on left foot dorsum: MRI of the foot shows abscess. Plan for surgery later today. Keep nothing by mouth. Continue current antibiotics. Cellulitis involving bilateral lower extremities: On doxycycline and ceftria xone. Chronic kidney disease stage III: Creatinine 2.06. Stable. Continue oral Lasix. Metolazone has been stopped. Diabetes mellitus type 2: Blood sugars again elevated today. We will increase L evemir to 40 units twice a day and also increase nutritional coverage to 14 units 3 times a day. Continue sliding scale at high correctional dosing. Atrial fibrillation: Rate controlled. Continue Cardizem. On Xarelto for anticoagulation Moderate risk for complications - Time Spent with Patient Total time spent is greater than 50% in coordination of care (as documented) at patient's floor/unit and/or counseling patient: Internal Medicine: Result - Labs CBC & Chem 7: 01/11/19 05:42 01/11/19 05:42 Labs: Short CBC 01/11/19 Range/Units 05:42 WBC 9.6 (4.3-11.1) K/mcL Hgb 11.4 L (12.9-16.9) g/dL Hct 37.2 L (37.5-50.1) % Plt Count 231 (140-400) K/mcL Neutrophils # 7.3 (1.6-8.9) K/mcL BMP 01/11/19 05:42 Sodium 133 L Potassium 4.5 Chloride 100 Carbon Dioxide 28 BUN 41 H Creatinine 2.06 H Glucose 285 H Calcium 9.7 - Impressions Impressions Chest X-Ray 01/07/19 14:32 IMPRESSION: Possible small left pleural effusion or basilar atelectasis. Cardiomegaly. Pulmonary vascular congestion. D/ / 01/07/2019 16:19:26 Yuniel Mckeon MD / [facility] Interpreting Provider: Yuniel Mckeon MD Foot MRI 01/10/19 23:22 IMPRESSION: 1. Diffuse mid and forefoot edema which may relate to bland edema versus cellulitis. 2. At the dorsal lateral aspect of the forefoot there is an ulceration with a sinus tract that extends approximately 2 cm deep to the dorsal aspect of the 4th digit amputation margin. Extending anterior from this there is an irregular partially loculated 2.5 cm fluid collection which may represent a developing abscess. 3. The mid and forefoot demonstrate normal signal intensity. 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 No evidence of osteomyelitis. D/ / 01/10/2019 14:30:30 Maximino Gore MD / [facility] Interpreting Provider: Maximino Gore MD Consult Discharge Plan - Plan Referrals: Marissa Pitts CNP [Primary Care Provider] - 01/16/19 12:15 pm __ (1) Acute exacerbation of CHF (congestive heart failure) Qualifiers: Heart failure type: diastolic Qualified Code(s): I50.33 - Acute on chronic diastolic (congestive) heart failure (3) Type 2 diabetes mellitus Qualifiers: Diabetes mellitus supervisor metal fabricating insulin use: with supervisor metal fabricating use Diabetes mellitus complication status: with skin complications Diabetes mellitus complication detail: with foot ulcer Qualified Code(s): E11.621 - Type 2 diabetes mellitus with foot ulcer; L97.509 - Non-pressure chronic ulcer of other part of unspecified foot with unspecified severity; Z79.4 - multimedia educational specialist (current) use of insulin (4) Hypertension Qualifiers: Hypertension type: essential hypertension Qualified Code(s): I10 - Essential (primary) hypertension (6) Atrial fibrillation Qualifiers: Atrial fibrillation type: paroxysmal Qualified Code(s): I48.0 - Paroxysmal atrial fibrillation (8) Ulcer of left foot Qualifiers: Non-pressure ulcer stage: limited to breakdown of skin Qualified Code(s): L9 7.521 - Non-pressure chronic ulcer of other part of left foot limited to breakdown of skin
[2019-01-11] MEDS ORDERED: Insulin LISPRO 300 UNITS/3 ML VIAL SQ SCH (12:00)
--- NOTE | 2019-01-11 12:12 | Anesthesia Evaluation PreOp ---
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 History: CVA Other Medical History: Renal (CKD 3), Diabetes Type II Anesthesia History: No Prior Anesthetic Complications, Past Anesthesia (CABG, right [place], toe amps b/l) Alcohol Use: none Drug use: none Medications and Allergies Aspirin [Lo-Dose Aspirin EC] 81 mg PO QAM 03/11/16 [History] Atorvastatin [Lipitor] 40 mg PO HS 03/11/16 [History] Diltiazem CD (24hr) [Cardizem CD] 120 mg PO DAILY #30 tab 03/07/17 [Rx] Isosorbide MONOnitrate (24 HR) [Imdur] 30 mg PO DAILY #30 tab 03/07/17 [Rx] Rivaroxaban [Xarelto] 20 mg PO DAILY 04/22/17 [History] Cetirizine HCl [Zyrtec] 10 mg PO DAILY 05/08/17 [History] cloNIDine HCl [CloNIDine HCl] 0.1 mg PO TID 12/16/17 [History] Metoprolol [Lopressor] 25 mg PO BID 12/22/17 [History] Insulin Human Regular [HumuLIN R] 80 unit SQ BID 08/25/18 [History] Fluticasone/Vilanterol [Breo Ellipta 100-25 Mcg INH] 1 each IH DAILY 11/05/18 [History] Lisinopril [Zestril] 10 mg PO DAILY 11/05/18 [History] Ascorbic Acid [Vitamin C] 500 mg PO DAILY #30 capsule 11/07/18 [Rx] Cholecalciferol (D-3) [Vitamin D] 2,000 unit PO DAILY #60 tablet 11/07/18 [Rx] Cyanocobalamin (B-12) [Vitamin B12] 1,000 mcg PO DAILY #30 tablet 11/07/18 [Rx] Furosemide [Lasix] 40 mg PO DAILY #30 tablet 11/07/18 [Rx] Ferrous Sulfate 325 mg PO MOWEFR 12/23/18 [History] Albuterol Sulfate [Ventolin Hfa] 2 puff IH Q4H PRN 01/07/19 [History] Budesonide/Formoterol 160/4.5 [Symbicort 160/4.5] 2 puff IH BID 01/07/19 [History] Allergy/AdvReac Type Severity Reaction Status Date / Time No Known Allergies Allergy Verified 09/11/18 14:14 - Meds/Allergy Pre-op Review Medications Reviewed: Yes Allergies Reviewed: Yes Beta Blockers on Current Med List: Yes If Beta Blockers taken, Date/Time (Last Dose taken): today 906 Anesthesia Results - Labs 01/11/19 05:42 01/11/19 05:42 - Imaging Additional studies: echo: Impressions: LVEF 55%. Atypical septal motion consistent with post-operative status. Indeterminate diastolic function. Definity echo contrast was used. Right ventricular structure and function are not well evaluated. Mild tricuspid regurgitation. Moderate pulmonary hypertension. Anesthesia Exam Selected Entries 01/11/19 11:28 Temperature 97.6 F Pulse Rate 64 Respiratory Rate 15 Blood Pressure 128/80 O2 Sat by Pulse Oximetry 98 Oxygen Delivery Method Room Air - HEENT Pupil (Motor): EOMI Mallampati: III Teeth: Poor dentition Oral Opening: Greater than 3 - QUALITY SYSTEMS MANAGER LOC: Oriented QUALITY SYSTEMS MANAGER Motor: Normal RUE, Normal LUE, Normal RLE, Normal LLE, Normal Face QUALITY SYSTEMS MANAGER Sensory: Normal: RUE, LUE, RLE, LLE, Face - Cardiac Rhythm: Regular Murmur: None - Pulmonary Breath Sounds: bilateral Clear Respiratory Effort: Symmetrical Anesthesia Assess/Plan ASA Score: 4 Level of consciousness: Cooperative, Oriented Anesthetic Plan: MAC Monitoring Plan: Standard Monitors Recovery Plan: PACU
[2019-01-11] MEDS ORDERED: Dexamethasone 4 MG/ML VIAL ONE (12:26)
[2019-01-11] MEDS ORDERED: *HR* Propofol 200 MG/20 ML VIAL IVP ONE (12:26)
[2019-01-11] MEDS ORDERED: Ondansetron 4 MG/2 ML VIAL ONE (12:26)
[2019-01-11] MEDS ORDERED: Lidocaine -MPF 2% 2 ML VIAL ONE (12:26)
[2019-01-11] MEDS ORDERED: *HR* FentaNYL (PF) 100 MCG/2 ML VIAL ONE (12:26)
[2019-01-11] MEDS ORDERED: Bupivacaine/EPI 1:200k 0.25%PF 10 ML VIAL INFILT ONE (12:27)
[2019-01-11] MEDS ORDERED: EPHEDrine 50 MG/ML VIAL ONE (13:09)
[2019-01-11] MEDS ORDERED: Calcium Gluconate 1,000 MG/10 ML VIAL IVPB ONE (13:12)
--- NOTE | 2019-01-11 13:30 | Operative Note ---
Date of procedure: 01/11/19 Pre-op diagnosis: left foot abscess Post-op diagnosis: same Procedure: incision and drainage of left foot abscess Implants: iodoform packing Complications: none Anesthesia: GETA Surgeon: Evin Cantu Was there an lab assistant present: No Estimated blood loss (cc): 10 Specimen: left foot culture Condition: stable Disposition: PACU Procedure in Detail: Indications: 53-year-old diabetic male with left foot abscess on MRI being brought to the operating room for incision and drainage of left foot. Nature of the procedure, risks versus benefits potential complications consequences of surgery and his condition discussed at length. No guarantees made as to the outcome. He understood that he is at risk for partial foot/limb loss. All questions were answered and the informed consent was signed. The left foot was scrubbed prepped and draped in the usual sterile fashion 1% lidocaine plain was injected into the patient's left foot following procedure then began. Incision and drainage left foot. Attention was directed to the dorsal aspect of the left foot which had fluctuance present and a #15 blade was used to make an incision through this area approximately 5cm in length. Purulent drainage was expressed and there was some devitalized tissue. Blunt dissection was carried out down with of the deep fascia tissues. There was no purulent drainage tract into the interspace. There was some serous fluid tracking deep into the interspace. This fluid was evacuated. Cultures were taken and sent to microbiology. The site was irrigated with normal sterile saline which contained bacitracin. Devitalized tissue was excised with a #15 blade. Upon reinspection no further purulence could be expressed or devitalized tissue was present. 0 Prol[address] was used to place retention sutures and iodoform packing was used to pack open the area. PRP was injected into the surgical wound. Postoperative bandaging included Adaptic, 4 x 4 gauze ABD Kerlix and an Mario wrap. Patient will return to the floor where he will continue IV antibiotics.
[2019-01-11] MEDS ORDERED: *HR* Dextrose 50 % in Water (Syg) 50 ML SYRINGE IVP PRN (14:01)
[2019-01-11] MEDS ORDERED: Dextrose Gel 15 GM/37.5 ML TUBE PO PRN ×2 (14:01)
[2019-01-11] MEDS ORDERED: Naloxone 0.4 MG/ML INJ IVP PRN (14:01)
[2019-01-11] MEDS ORDERED: D5% in Water 1,000 ML IVC PRN (14:01)
[2019-01-11] MEDS ORDERED: 0.9 % Sodium Chloride 500 ML ONE ×2 (14:04→14:05)
--- NOTE | 2019-01-11 14:06 | Anesthesia Evaluation Post Op ---
Date of Encounter: 01/11/19 Time of Encounter: 14:05 - Vital Signs Vital Signs: Selected Entries 01/11/19 13:30 01/11/19 13:50 Temperature 97.6 F Pulse Rate 66 Respiratory Rate 16 Blood Pressure 131/58 O2 Sat by Pulse Oximetry 97 - Lungs Lungs: Clear Ascult./Percussion - Airway Airway: Non-obstructed - Cardiovascular Regular Rate - Mental Status Mental Status: Alert & Oriented, Answers Appropriately - Pain Pain Scale: 0 Pain Scale used: Numeric (1 - 10) - Nausea Vomiting Nausea Vomiting: Not Present - Hydration Hydration: Ice chips - Discharge PostOp Status: Transfer Patient to floor
[2019-01-11] MEDS: *HR* OxyCODONE/APAP 5/325 TABLET PO PRN (16:17)
[2019-01-11] MEDS: Insulin DETEMIR 100 UNIT/ML X5UNITS SQ SCH (20:38)
[2019-01-12] MEDS: *HR* OxyCODONE/APAP 5/325 TABLET PO PRN ×2 (01:37→08:20)
[2019-01-12] MEDS ORDERED: *HR* Metoprolol 5 MG/5 ML VIAL IVP ONE (03:14)
[2019-01-12 05:15] LABS: Basophils % 0.1 %; Hematocrit 38.9 % (37.5-50.1); Hemoglobin 11.9 g/dL (12.9-16.9); Immature Granulocytes % 0.5 % (0-4); Lymphocytes # 0.6 K/mcL (0.6-4.6); Lymphocytes % 3.9 %; Mean Corpuscular HGB Conc 30.6 g/dL (31.6-35.5); Mean Corpuscular Hemoglobin 23.6 pg (28.0-33.3); Mean Corpuscular Volume 77.2 fL (83.0-100.0); Mean Platelet Volume 10.1 fL (9.4-12.4); Monocytes # 0.3 K/mcL (0.0-1.3); Monocytes % 1.7 %; Platelet Count 246 K/mcL (140-400); Red Blood Count 5.04 M/mcL (4.19-5.50); Segmented Neutrophils % 93.8 %
[2019-01-12 05:34] LABS: Calcium 9.8 mg/dL (8.6-10.3); Potassium 5.6 mEq/L (3.5-5.1)
[2019-01-12] MEDS: Budesonide/Formoterol 160/4.5 1 PUFF INH IH SCH ×2 (07:54→19:56)
[2019-01-12] MEDS: Diltiazem CD (24hr) 120 MG CAPSULE PO SCH (08:19)
[2019-01-12] MEDS: Aspirin Enteric Coated 81 MG Tablet PO SCH (08:19)
[2019-01-12] MEDS: Isosorbide MONOnitrate (24 HR) 30 MG TAB.ER.24H PO SCH (08:19)
[2019-01-12] MEDS: Cholecalciferol (D-3) 1,000 UNIT TABLET PO SCH (08:19)
[2019-01-12] MEDS: Gabapentin 100 MG CAPSULE PO SCH ×3 (08:19→20:57)
[2019-01-12] MEDS: cefTRIAXone 1,000 MG in Water for inj. (sterile) 20 ML 10 ML IVP SCH (08:20)
[2019-01-12] MEDS: Doxycycline 100 MG CAPSULE PO SCH ×2 (08:20→20:57)
[2019-01-12] MEDS: Furosemide 40 MG TABLET PO SCH ×2 (08:20→16:12)
[2019-01-12] MEDS: cloNIDine HCl 0.1 MG TABLET PO SCH ×3 (08:20→20:57)
[2019-01-12] MEDS: *HR* Rivaroxaban 15 MG TABLET PO SCH (08:20)
[2019-01-12] MEDS: Cyanocobalamin (B-12) 1,000 MCG TABLET PO SCH (08:20)
[2019-01-12] MEDS: Insulin LISPRO 300 UNITS/3 ML VIAL SQ SCH ×7 (08:21→20:58)
[2019-01-12] MEDS: Insulin DETEMIR 100 UNIT/ML X5UNITS SQ SCH ×2 (08:26→20:58)
[2019-01-12] MEDS ORDERED: Insulin Regular, Human 100 UNIT/ML SQ ONE (12:17)
[2019-01-12] MEDS: MetroNIDAZOLE 500 MG/100 ML 500 MG/100 ML BAG IVPB SCH ×3 (12:54→23:43)
--- NOTE | 2019-01-12 13:09 | Internal Med Progress Note ---
Hospitalist Progress Note - Encounter Date of Encounter: 01/12/19 Time of Encounter: 08:35 - Subjective Interval History: Patient sitting up in chair. Eating breakfast. Complains of pain in his left foot which is controlled with his current pain medication regimen. Denies any fevers or chills overnight. Underwent surgery yesterday without any compli cations. - Exam Vitals: Temp Pulse Resp BP Pulse Ox 97.5 F L 86 16 132/74 96 01/12/19 11:06 01/12/19 11:01/12/19 11:06 01/12/19 11:01/12/19 11:06 Exam: General: Patient is alert, mild distress, oriented x 3 ENT: Mucous membranes moist Respiratory: Good respiratory effort. Normal breath sounds. No wheezing or crackles. Cardiovascular: Regular rate and rhythm. s1 and s2 normal No clicks, rubs, gal lops, or murmurs. Mild pedal edema bilaterally Abdomen: Abdomen is soft, nontender. Bowel sounds are present Musculoskeletal: Spontaneously moving all extremities , left foot bandaged. Skin: warm, dry, intact. Neuro: Alert oriented x 3 normal cranial nerves, no focal deficits - Assessment and Plan (1) Acute exacerbation of CHF (congestive heart failure) Current Visit: Yes Status: Acute (2) Morbid obesity Current Visit: Yes Status: Chronic (3) Type 2 diabetes mellitus Current Visit: Yes Status: Chronic (4) Hypertension Current Visit: Yes Status: Chronic (5) DVT prophylaxis Current Visit: Yes Status: Acute (6) Atrial fibrillation Current Visit: Yes Status: Chronic (7) Bilateral lower leg cellulitis Current Visit: Yes Status: Acute (8) Ulcer of left foot Current Visit: Yes Status: Acute (9) Hyponatremia Current Visit: Yes Status: Acute DVT Prophylaxis: Continue Xarelto - Summary of Assessment and Plan Summary of Assessment and Plan: Acute exacerbation of diastolic congestive heart failure: Continue Lasix. Metolazone has been stopped. Patient continues to have good urine output. Ulcer and abscess on left foot dorsum: Status post incision and drainage done yesterday. Will add Flagyl to cover anaerobes. Await culture results. Cellulitis involving bilateral lower extremities: On doxycycline and ceftriaxone. Started Flagyl. Patient does have worsening leukocytosis. Likely reactive due to surgery done yesterday. Will monitor Chronic kidney disease stage III: Creatinine 2.10 and continue Lasix. We will continue to monitor renal function closely. Diabetes mellitus type 2: Remains uncontrolled. We will increase his Levemir dosage to 45 units twice a day. Placed back on diabetic diet. Continue sliding scale coverage and nutritional coverage. Hyponatremia: Likely pseudohyponatremia due to elevated blood sugars. Will monitor sodium levels closely. Atrial fibrillation: Rate controlled. Continue Cardizem. On Xarelto for anticoagulation Moderate risk for complications - Time Spent with Patient Total time spent is greater than 50% in coordination of care (as documented) at patient's floor/unit and/or counseling patient: Internal Medicine: Result - Labs CBC & Chem 7: 01/12/19 04:46 01/12/19 04:46 Labs: Short CBC 01/12/19 Range/Units 04:46 WBC 16.0 H D (4.3-11.1) K/mcL Hgb 11.9 L (12.9-16.9) g/dL Hct 38.9 (37.5-50.1) % Plt Count 246 (140-400) K/mcL Neutrophils # 15.0 H (1.6-8.9) K/mcL BMP 01/12/19 04:46 Sodium 129 L Potassium 5.6 H Chloride 95 L Carbon Dioxide 26 BUN 43 H Creatinine 2.10 H Glucose 414 H Calcium 9.8 Consult Discharge Plan - Plan Referrals: Marissa Pitts CNP [Primary Care Provider] - 01/16/19 12:15 pm (1) Acute exacerbation of CHF (congestive heart failure) Qualifiers: Heart failure type: diastolic Qualified Code(s): I50.33 - Acute on chronic diastolic (congestive) heart failure (3) Type 2 diabetes mellitus Qualifiers: Diabetes mellitus custodial insulin use: with custodial use Diabetes mellitus complication status: with skin complications Diabetes mellitus complication detail: with foot ulcer Qualified Code(s): E11.621 - Type 2 diabetes mellitus with foot ulcer; L97.509 - Non-pressure chronic ulcer of other part of unspecified foot with unspecified severity; Z79.4 - nursing home (current) use of insulin (4) Hypertension Qualifiers: Hypertension type: essential hypertension Qualified Code(s): I10 - Essential (primary) hypertension (6) Atrial fibrillation Qualifiers: Atrial fibrillation type: paroxysmal Qualified Code(s): I48.0 - Paroxysmal atrial fibrillation (8) Ulcer of left foot Qualifiers: Non-pressure ulcer stage: limited to breakdown of skin Qualified Code(s): L97.521 - Non-pressure chronic ulcer of other part of left foot limited to breakdown of skin
[2019-01-13 02:37] LABS: Basophils % 0.2 %; Eosinophils % 0.1 %; Hematocrit 39.4 % (37.5-50.1); Immature Granulocytes % 0.5 % (0-4); Lymphocytes # 1.1 K/mcL (0.6-4.6); Lymphocytes % 5.5 %; Mean Corpuscular HGB Conc 30.5 g/dL (31.6-35.5); Mean Corpuscular Hemoglobin 23.2 pg (28.0-33.3); Mean Corpuscular Volume 76.1 fL (83.0-100.0); Mean Platelet Volume 10.1 fL (9.4-12.4); Monocytes # 0.9 K/mcL (0.0-1.3); Monocytes % 4.4 %; Neutrophils # 17.7 K/mcL (1.6-8.9); Platelet Count 279 K/mcL (140-400); Red Blood Count 5.18 M/mcL (4.19-5.50); Red Cell Distribution Width 17.2 % (11.5-14.5); Segmented Neutrophils % 89.3 %; White Blood Count 19.8 K/mcL (4.3-11.1)
[2019-01-13 02:50] LABS: Calcium 9.6 mg/dL (8.6-10.3); Potassium 5.3 mEq/L (3.5-5.1)
[2019-01-13] MEDS: cefTRIAXone 1,000 MG in Water for inj. (sterile) 20 ML 10 ML IVP SCH (08:02)
[2019-01-13] MEDS: MetroNIDAZOLE 500 MG/100 ML 500 MG/100 ML BAG IVPB SCH ×2 (08:02→15:26)
[2019-01-13] MEDS: Furosemide 40 MG TABLET PO SCH (08:03)
[2019-01-13] MEDS: Gabapentin 100 MG CAPSULE PO SCH ×3 (08:03→20:27)
[2019-01-13] MEDS: *HR* Rivaroxaban 15 MG TABLET PO SCH (08:03)
[2019-01-13] MEDS: *HR* OxyCODONE/APAP 5/325 TABLET PO PRN (08:04)
[2019-01-13] MEDS: Cyanocobalamin (B-12) 1,000 MCG TABLET PO SCH (08:04)
[2019-01-13] MEDS: Cholecalciferol (D-3) 1,000 UNIT TABLET PO SCH (08:04)
[2019-01-13] MEDS: Diltiazem CD (24hr) 120 MG CAPSULE PO SCH (08:04)
[2019-01-13] MEDS: Aspirin Enteric Coated 81 MG Tablet PO SCH (08:05)
[2019-01-13] MEDS: Isosorbide MONOnitrate (24 HR) 30 MG TAB.ER.24H PO SCH (08:05)
[2019-01-13] MEDS: Doxycycline 100 MG CAPSULE PO SCH (08:05)
[2019-01-13] MEDS: cloNIDine HCl 0.1 MG TABLET PO SCH ×3 (08:05→20:27)
[2019-01-13] MEDS: Insulin LISPRO 300 UNITS/3 ML VIAL SQ SCH ×7 (08:06→20:28)
[2019-01-13] MEDS: Budesonide/Formoterol 160/4.5 1 PUFF INH IH SCH ×2 (08:11→20:20)
[2019-01-13] MEDS: Insulin DETEMIR 100 UNIT/ML X5UNITS SQ SCH (08:16)
[2019-01-13] MEDS ORDERED: Vancomycin 0 MG in 0.9 % Sodium Chloride 250 ML IVPB SCH (09:00)
[2019-01-13] MEDS ORDERED: Insulin Human Regular 10 UNIT in 0.9 % Sodium Chloride 10 ML IV ONE (11:26)
--- NOTE | 2019-01-13 14:50 | Internal Med Progress Note ---
Hospitalist Progress Note - Encounter Date of Encounter: 01/13/19 Time of Encounter: 14:50 - Subjective Interval History: Evaluated patient earlier today. He has been doing well overall. Complains of some left foot pain but this is well controlled. No fevers or chills overnight. His blood sugars have been severely elevated. He had been on regular diet after his surgery and accordingly switched to diabetic diet yesterday. - Exam Vitals: Temp Pulse Resp BP Pulse Ox 97.4 F L 64 16 129/72 99 01/13/19 11:14 01/13/19 11:14 01/13/19 11:14 01/13/19 11:14 01/13/19 11:14 Exam: General: Patient is alert, no acute distress, oriented x 3 ENT: Mucous membranes moist Respiratory: Good respiratory effort. Normal breath sounds. No wheezing or crackles. Cardiovascular: Regular rate and rhythm. s1 and s2 normal No clicks, rubs, gallops, or murmurs. Mild bilateral pedal edema Abdomen: Abdomen is soft, nontender. Bowel sounds are present Musculoskeletal: Left foot wound bandage. Skin: warm, dry, intact. Neuro: Alert oriented x 3 normal cranial nerves, no focal deficits - Assessment and Plan (1) Acute exacerbation of CHF (congestive heart failure) Current Visit: Yes Status: Acute (2) Morbid obesity Current Visit: Yes Status: Chronic (3) Type 2 diabetes mellitus Current Visit: Yes Status: Chronic (4) Hypertension Current Visit: Yes Status: Chronic (5) DVT prophylaxis Current Visit: Yes Status: Acute (6) Atrial fibrillation Current Visit: Yes Status: Chronic (7) Bilateral lower leg cellulitis Current Visit: Yes Status: Acute (8) Ulcer of left foot Current Visit: Yes Status: Acute (9) Hyponatremia Current Visit: Yes Status: Acute DVT Prophylaxis: Continue Xarelto - Summary of Assessment and Plan Summary of Assessment and Plan: Acute exacerbation of diastolic congestive heart failure: Continue Lasix. Will decrease dosage to daily dosing for now as his renal function worsening. Patient continues to have good urine output. Ulcer and abscess on left foot dorsum: Leukocytosis worsening today. Intraoperative cultures are still pending. Will place patient on vancomycin. Stop doxycycline. Continue Flagyl and Rocephin. Cellulitis involving bilateral lower extremities: Antibiotics as above. Chronic kidney disease stage III: Creatinine 2.14 today. Will decrease Lasix dosage to once daily. Hyponatremia: Sodium 126 today. Likely due to Lasix use and elevated blood glucose. Will continue to monitor for now Diabetes mellitus type 2: Poorly controlled despite increased doses of subcutaneous insulin. We will give another dose of IV regular insulin today. We will further increase long-acting insulin regimen. Atrial fibrillation: Rate controlled. On Cardizem. On Xarelto for anticoagulation Moderate risk for complications - Time Spent with Patient Total time spent is greater than 50% in coordination of care (as documented) at patient's floor/unit and/or counseling patient: Internal Medicine: Result - Labs CBC & Chem 7: 01/13/19 02:11 01/13/19 02:11 Labs: Short CBC 01/13/19 Range/Units 02:11 WBC 19.8 H (4.3-11.1) K/mcL Hgb 12.0 L (12.9-16.9) g/dL Hct 39.4 (37.5-50.1) % Plt Count 279 (140-400) K/mcL Neutrophils # 17.7 H (1.6-8.9) K/mcL BMP 01/13/19 02:11 Sodium 126 L Potassium 5.3 H Chloride 96 L Carbon Dioxide 20 L BUN 52 H Creatinine 2.14 H Glucose 369 H Calcium 9.6 Consult Discharge Plan - Plan Referrals: Marissa Pitts CNP [Primary Care Provider] - 01/16/19 12:15 pm (1) Acute exacerbation of CHF (congestive heart failure) Qualifiers: Heart failure type: diastolic Qualified Code(s): I50.33 - Acute on chronic diastolic (congestive) heart failure (3) Type 2 diabetes mellitus Qualifiers: Diabetes mellitus fdc insulin use: with business development professional use Diabetes mellitus complication status: with skin complications Diabetes mellitus complication detail: with foot ulcer Qualified Code(s): E11.621 - Type 2 diabetes mellitus with foot ulcer; L97.509 - Non-pressure chronic ulcer of other part of unspecified foot with unspecified severity; Z79.4 - nursing home (current) use of insulin (4) Hypertension Qualifiers: Hypertension type: essential hypertension Qualified Code(s): I10 - Essential (primary) hypertension (6) Atrial fibrillation Qualifiers: Atrial fibrillation type: paroxysmal Qualified Code(s): I48.0 - Paroxysmal atrial fibrillation (8) Ulcer of left foot Qualifiers: Non-pressure ulcer stage: limited to breakdown of skin Qualified Code(s): L97.521 - Non-pressure chronic ulcer of other part of left foot limited to breakdown of skin
[2019-01-13] MEDS ORDERED: Insulin DETEMIR 100 UNIT/ML X5UNITS SQ SCH (21:00)
[2019-01-13] MEDS ORDERED: 0.9 % Sodium Chloride 500 ML IVC SCH (23:00)
[2019-01-13] MEDS: Insulin Human Regular 100 UNIT in 0.9 % Sodium Chloride 100 ML IVC SCH (23:16)
[2019-01-14] MEDS: MetroNIDAZOLE 500 MG/100 ML 500 MG/100 ML BAG IVPB SCH ×2 (00:01→10:57)
--- NOTE | 2019-01-14 00:10 | Event Note ---
Date of Encounter: 01/13/19 Time of Encounter: 22:[address] Tovar that this pt. is having resistance to ordered SQ insulin. SQ dosing had been increased but pts. BG remains high. Dr. Tovar's recommendation is to start an insulin gtt at 10 units per hour without titrating up until target BG is <200. 0.9 IV fluids ordered at 20 mls/hr to KVO. BG checks Q1HR. ADA diet ordered. Hypog;lycemic protocol ordered. Insulin gtt started and nurse instructed to continue monitoring the pt. very closely and alert me immediately of any adverse changes.
[2019-01-14 07:14] LABS: Basophils # 0.1 K/mcL (0.0-0.2); Basophils % 0.4 %; Eosinophils # 0.2 K/mcL (0.0-0.6); Eosinophils % 1.1 %; Hematocrit 37.9 % (37.5-50.1); Hemoglobin 11.4 g/dL (12.9-16.9); Immature Granulocytes % 0.5 % (0-4); Lymphocytes # 1.8 K/mcL (0.6-4.6); Lymphocytes % 13.3 %; Mean Corpuscular HGB Conc 30.1 g/dL (31.6-35.5); Mean Corpuscular Hemoglobin 23.4 pg (28.0-33.3); Mean Corpuscular Volume 77.7 fL (83.0-100.0); Mean Platelet Volume 10.2 fL (9.4-12.4); Monocytes # 1.1 K/mcL (0.0-1.3); Monocytes % 8.4 %; Neutrophils # 10.1 K/mcL (1.6-8.9); Platelet Count 258 K/mcL (140-400); Red Blood Count 4.88 M/mcL (4.19-5.50); Red Cell Distribution Width 17.1 % (11.5-14.5); Segmented Neutrophils % 76.3 %; White Blood Count 13.3 K/mcL (4.3-11.1)
[2019-01-14] MEDS: Budesonide/Formoterol 160/4.5 1 PUFF INH IH SCH ×2 (07:20→22:50)
[2019-01-14 07:46] LABS: Calcium 9.2 mg/dL (8.6-10.3); Potassium 4.6 mEq/L (3.5-5.1)
--- NOTE | 2019-01-14 08:55 | Infectious Disease Consult ---
Infectious Disease-Consult - Encounter Date/Time Date of Encounter: 01/14/19 - Data of Consult Patient: known to practice within the last 3 years Reason for consult: Left foot cellulitis and abscess Consult date: 01/14/19 Requesting Physician: Homero Tovar MD Primary Care Provider: Marissa Pitts - [facility] HPI: Her heart is a 53-year-old male with past medical history of CAD status post CABG, A. fib, COPD, diabetes, CHF, CVA, hyperlipidemia, hypertension, chronic kidney disease and remote history of right foot osteomyelitis. The patient was admitted to the hospital 01/07/19 for CHF and diabetic foot ulcer. We are consulted 01/14/19 for further workup and treatment recommendations for left foot cellulitis and abscess. Briefly, the patient is a 53-year-old male, known to twice a day service as we were consulted on his case back in 2018 at which time he had osteomyelitis of his right foot. It appears he completed a 6 week course of IV Unasyn and his surgical site has been doing well. He presented to the emergency department on the day of admission and plans of shortness of breath, chest pain, and blisters to his bilateral lower extremities secondary to swelling. Upon arrival, he was afebrile. He was hypertensive, but otherwise hemodynamically stable. Laboratory studies revealed a normal white blood cell count. Renal function was at baseline for his chronic kidney disease. BNP was mildly elevated at 283. Troponin was positive at 0.04. He had chest x-ray that showed a small left pleural effusion, pulmonary vascular congestion, cardiomegaly. Troponin he was started. On doxycycline and Rocephin and was admitted to the hospital for further evaluation and treatment. Since admission, he has been evaluated by podiatry, he had a plain film x-ray of the left foot shows that showed possible soft tissue gas medial to the fifth MTP joint. He then underwent an MRI that showed bland edema versus cellulitis and abscess, but no osteomyelitis. He was taken to the operating room 01/11/19 where he underwent an I&D of the left foot abscess. Intraoperative cultures are no growth and the Gram stain is negative. Postop, the patient developed leukocytosis. His antibiotics were escalated to vancomycin, Rocephin, and Flagyl. He had a chest x-ray that was negative. Today, the patient's WBC is down to 13. He he has no other sepsis criteria. He is currently on vancomycin, Rocephin, and Flagyl. We have been asked to evaluate and make further recommendations. During my exam today, the patient endorses a history as stated above. He reports progressively worsening shortness of breath for the week prior to adm ission, even at rest. He denies any fevers or chills or rigors. Denies headache or neck pain. Reported some intermittent chest pain associated with shortness of breath, but denied cough. Reports some intermittent nausea, but denies any vomiting or diarrhea. Denies abdominal pain or urinary complaints. Denies oral thrush or skin rashes. Reports multiple blisters of the bilateral lower extremities secondary to the swelling in his legs. He states he developed a blister to the dorsal aspect of the left foot with some surrounding erythema, warmth, and pain. He denies any drainage from the ulcer prior to admission. The patient lives at home with his family. He does not work outside the home. He chews tobacco and reports he chews about 2 cans per week. Denies alcohol or illicit drug use. Denies recent travel. Denies any pet or animal exposures. Denies chronic infectious diseases. - ROS Review of Systems: All systems reviewed and no additional remarkable complaints except as stated. - Results CBC & Chem 7: 01/14/19 06:56 01/14/19 06:56 - Exam Vitals: Temp Pulse Resp BP Pulse Ox 97.5 F L 51 18 117/74 98 01/14/19 07:07 01/14/19 07:07 01/14/19 07:20 01/14/19 07:07 01/14/19 07:20 Exam: Head: Atraumatic, normal inspection, normocephalic. Eye: EOMI, PERRLA, no scleral icterus noted. ENT: Mucous membranes moist. No odontogenic infection noted. Neck: Normal inspection, no meningismus. Respiratory: Fine expiratory wheezes noted throughout. No respiratory distress noted. Cardiovascular: Regular rate and rhythm, S1 and S2 audible. No murmurs, rubs, or gallops. GI: Soft, obese, normal bowel sounds. Extremities:No joint swelling or tenderness noted. Surgical site noted to the dorsal aspect of the left foot with sutures and packing intact. Mild erythema noted. No fluctuance or drainage. Old bloody drainage noted on the dressing. Back: Normal inspection. No vertebral tenderness noted. Neurological: Alert, oriented 3, no focal deficits. Psychiatric: normal affect, normal mood. Skin: Dry, intact, warm. Normal color. No rashes. Aspirin [Lo-Dose Aspirin EC] 81 mg PO QAM 03/11/16 [History] Atorvastatin [Lipitor] 40 mg PO HS 03/11/16 [History] Diltiazem CD (24hr) [Cardizem CD] 120 mg PO DAILY #30 tab 03/07/17 [Rx] Isosorbide MONOnitrate (24 HR) [Imdur] 30 mg PO DAILY #30 tab 03/07/17 [Rx] Rivaroxaban [Xarelto] 20 mg PO DAILY 04/22/17 [History] Cetirizine HCl [Zyrtec] 10 mg PO DAILY 05/08/17 [History] cloNIDine HCl [CloNIDine HCl] 0.1 mg PO TID 12/16/17 [History] Metoprolol [Lopressor] 25 mg PO BID 12/22/17 [History] Insulin Human Regular [HumuLIN R] 80 unit SQ BID 08/25/18 [History] Fluticasone/Vilanterol [Breo Ellipta 100-25 Mcg INH] 1 each IH DAILY 11/05/18 [History] Lisinopril [Zestril] 10 mg PO DAILY 11/05/18 [History] Ascorbic Acid [Vitamin C] 500 mg PO DAILY #30 capsule 11/07/18 [Rx] Cholecalciferol (D-3) [Vitamin D] 2,000 unit PO DAILY #60 tablet 11/07/18 [Rx] Cyanocobalamin (B-12) [Vitamin B12] 1,000 mcg PO DAILY #30 tablet 11/07/18 [Rx] Furosemide [Lasix] 40 mg PO DAILY #30 tablet 11/07/18 [Rx] Ferrous Sulfate 325 mg PO MOWEFR 12/23/18 [History] Albuterol Sulfate [Ventolin Hfa] 2 puff IH Q4H PRN 01/07/19 [History] Budesonide/Formoterol 160/4.5 [Symbicort 160/4.5] 2 puff IH BID 01/07/19 [History] Allergy/AdvReac Type Severity Reaction Status Date / Time No Known Allergies Allergy Verified 09/11/18 14:14 - Assessment and Plan (1) Leukocytosis Current Visit: Yes Status: Acute Likely reactive secondary to surgery. Improved. Qualifiers: Leukocytosis type: unspecified Qualified Code(s): D72.829 - Elevated white blood cell count, unspecified SNOMED Code(s): 733755607, 479148509 (2) Foot abscess, left Current Visit: Yes Status: Acute Location: Left foot. Cause of organism: Unclear. X-ray of the left foot showed findings concerning for soft tissue mass overlying the medial fifth MTP joint. MRI of the left foot showed findings concerning for bland edema versus cellulitis as well as an abscess, but no osteomyelitis. Podiatry consult. Status post I&D of the left foot abscess 01/11/19. Intraoperative cultures are no growth. Gram stain is negative. Currently on Rocephin, Flagyl, and vancomycin. SNOMED Code(s): 35817620017802101 (3) Acute exacerbation of CHF (congestive heart failure) Current Visit: Yes Status: Acute Chest x-ray on admission showed findings consistent with a small left pleural effusion, pulmonary vascular congestion, and cardiomegaly. BNP elevated at 283. TTE showed an EF of 55%. Further workup and management per the primary team. Qualifiers: Heart failure type: diastolic Qualified Code(s): I50.33 - Acute on chronic diastolic (congestive) heart failure SNOMED Code(s): 121323421, 90292027720286 (4) Ulcer of left foot Current Visit: Yes Status: Acute Likely secondary to swelling of the bilateral lower extremities. Podiatry consult. Qualifiers: Non-pressure ulcer stage: limited to breakdown of skin Qualified Code(s): L97.521 - Non-pressure chronic ulcer of other part of left foot limited to breakdown of skin SNOMED Code(s): 34543357 (5) Morbid obesity Current Visit: Yes Status: Chronic SNOMED Code(s): 391161138 (6) CAD (coronary artery disease) Current Visit: No Status: Chronic Qualifiers: Coronary Disease-Associated Artery/Lesion type: [place] artery [place] vs. transplanted heart: [place] heart Associated angina: without angina Qualified Code(s): I25.10 - Atherosclerotic heart disease of [place] coronary artery without angina pectoris SNOMED Code(s): 75479761 (7) Chronic kidney disease, stage III (moderate) Current Visit: No Status: Chronic Monitor renal function closely and does just medications. Avoid nephrotoxins as able. SNOMED Code(s): 357900026 (8) Type 2 diabetes mellitus Current Visit: Yes Status: Chronic Uncontrolled. Hemoglobin A1c 9.8%. Blood sugars continue to run high. Recommend aggressive glucose management and control to promote wound healing and prevent reinfection. Management per the primary team. Qualifiers: Diabetes mellitus oil heaterman insulin use: with retirement use Diabetes mellitus complication status: with skin complications Diabetes mellitus complication detail: with foot ulcer Qualified Code(s): E11.621 - Type 2 diabetes mellitus with foot ulcer; L97.509 - Non-pressure chronic ulcer of other part of unspecified foot with unspecified severity; Z79.4 - FPC (current) use of insulin SNOMED Code(s): 08263751 (9) Hypertension Current Visit: Yes Status: Chronic Qualifiers: Hypertension type: essential hypertension Qualified Code(s): I10 - Essential (primary) hypertension SNOMED Code(s): 88720110 (10) Atrial fibrillation Current Visit: Yes Status: Chronic Qualifiers: Atrial fibrillation type: paroxysmal Qualified Code(s): I48.0 - Paroxysmal atrial fibrillation SNOMED Code(s): 46128640 (11) Obstructive sleep apnea Current Visit: No Status: Chronic SNOMED Code(s): 05421573 - Recommendations Recommendations: Continue to trend CBC. Await intraoperative cultures to finalize. CHF and diabetes management per the primary team. Wound care and activity per the podiatry team. Continue vancomycin IV. Pharmacy to dose. Goal trough approximately 15. Continue Rocephin, but increase to 2 g IV daily. Continue Flagyl 500 mg 3 times a day, but transitioned to by mouth. Duration of treatment depends on the clinical picture. We will discuss with podiatry and see if they think that oral antibiotics are sufficient given the patient's status of infection. Can consider doxycycline plus Augmentin on discharge to complete a 14 day course. Monitor renal function for drug toxicity and dose adjust antibiotics. Past Med Surg Social Fam HX - Past Medical History Medical history: arthritis, atrial fibrillation, CHF, COPD, coronary artery disease, CVA, diabetes, GERD, hyperlipidemia, hypertension, myocardial infarction, renal disease Psychiatric history: anxiety, depression - Past Surgical History Surgical History: cataract, coronary bypass (CABG), orthopedic, other, other Additional surgical history: hip replacement 2005. 4 coronary bypass 2007. bilat amputation 4th toe. 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 - Social History Smoking Status: Former smoker Smokeless Tobacco Status: Yes (snuff) Alcohol use: none Drug use: none - Family History Mother Family Member Ethnicity: Non- Living Status: Hx Family Cardiac Disorders: Yes Hx Family Respiratory Disorders: Yes (Emphysema) Hx Family Cancer: No Hx Family GI Disorders: No Hx Family Genitourinary Disorders: No Hx Family Endocrine Disorder: No Hx Family Musculoskeletal Disorders: No Hx Family Neuromuscular Disorders: No Hx Family Neurologic Disorders: No Hx Family HEENT Disorders: No Hx Family Autoimmune Disorders: No Hx Family Reproductive Disorders: No Hx Family Psychosocial Disorders: No Hx Family Medical Disorders: No Father Family Member Ethnicity: Non- Living Status: Hx Family Cardiac Disorders: Yes (LA) Hx Family Respiratory Disorders: No Hx Family Cancer: No Hx Family GI Disorders: Yes (ULCERS) Hx Family Genitourinary Disorders: No Hx Family Endocrine Disorder: No Hx Family Musculoskeletal Disorders: No Hx Family Neuromuscular Disorders: No Hx Family Neurologic Disorders: No Hx Family HEENT Disorders: No Hx Family Autoimmune Disorders: No Hx Family Reproductive Disorders: No Hx Family Psychosocial Disorders: No Hx Family Medical Disorders: No Brother Family Member Ethnicity: Non- Living Status: Still Living Hx Family Cardiac Disorders: Yes (HD) Hx Family Respiratory Disorders: Yes (COPD) Sister Family Member Ethnicity: Non- Living Status: Still Living Hx Family Endocrine Disorder: Yes (T2DM) Consult Discharge Plan - Plan Referrals: Marissa Pitts CNP [Primary Care Provider] - 01/16/19 12:15 pm - Attending Attestation I have personally performed a face to face evaluation on this patient. I have reviewed and agree with the care plan. History and Exam by me shows: Assessment and plan: Left foot abscess causative organism unclear MRI of the left foot showed findings concerning for plan edema versus cellulitis as well as an abscess but no osteomyelitis. Status post I&D 2018 Lesion on the left lower extremity about 4 cm in diameter with a black eschar we will watch closely Morbid obesity BMI 43 Cor heart disease Recommendations: Continue to trend CBC. Await intraoperative cultures to finalize. CHF and diabetes management per the primary team. Wound care and activity per the podiatry team. Continue vancomycin IV. Pharmacy to dose. Goal trough approximately 15. Continue Rocephin, but increase to 2 g IV daily. Continue Flagyl 500 mg 3 times a day, but transitioned to by mouth. Duration of treatment depends on the clinical picture. We will discuss with podiatry and see if they think that oral antibiotics are sufficient given the patient's status of infection. Can consider doxycycline plus Augmentin on discharge to complete a 14 day course. Monitor renal function for drug toxicity and dose adjust antibiotics.
[2019-01-14] MEDS ORDERED: Insulin DETEMIR 100 UNIT/ML X5UNITS SQ SCH (09:00)
[2019-01-14] MEDS: cefTRIAXone 1,000 MG in Water for inj. (sterile) 20 ML 10 ML IVP SCH (10:55)
[2019-01-14] MEDS: Gabapentin 100 MG CAPSULE PO SCH ×3 (10:56→21:23)
[2019-01-14] MEDS: Aspirin Enteric Coated 81 MG Tablet PO SCH (10:56)
[2019-01-14] MEDS: Cholecalciferol (D-3) 1,000 UNIT TABLET PO SCH (10:56)
[2019-01-14] MEDS: *HR* Rivaroxaban 15 MG TABLET PO SCH (10:56)
[2019-01-14] MEDS: Furosemide 40 MG TABLET PO SCH (10:56)
[2019-01-14] MEDS: cloNIDine HCl 0.1 MG TABLET PO SCH ×3 (10:56→21:22)
[2019-01-14] MEDS: Isosorbide MONOnitrate (24 HR) 30 MG TAB.ER.24H PO SCH (10:56)
[2019-01-14] MEDS: Diltiazem CD (24hr) 120 MG CAPSULE PO SCH (10:57)
[2019-01-14] MEDS: Cyanocobalamin (B-12) 1,000 MCG TABLET PO SCH (10:57)
[2019-01-14] MEDS: *HR* OxyCODONE/APAP 5/325 TABLET PO PRN ×2 (11:01→21:23)
[2019-01-14] MEDS: Insulin LISPRO 300 UNITS/3 ML VIAL SQ SCH ×4 (12:18→21:25)
--- NOTE | 2019-01-14 13:52 | Internal Med Progress Note ---
Hospitalist Progress Note - Encounter Date of Encounter: 01/14/19 Time of Encounter: 13:46 - Subjective Interval History: Evaluated patient earlier today. He is doing well overall. Denies any new complaints. Pain in his left foot as well controlled. No nausea or vomiting. No diarrhea reported. Patient had been placed on IV insulin overnight as his blood sugars worse persistently elevated greater than 300. His blood sugars have improved with this and he is now been transitioned back to subcutaneous insulin. - Exam Vitals: Temp Pulse Resp BP Pulse Ox 98.1 F 68 16 144/80 96 01/14/19 11:54 01/14/19 11:54 01/14/19 11:54 01/14/19 11:54 01/14/19 11:54 Exam: General: Patient is alert, no acute distress, oriented x 3 Respiratory: Good respiratory effort. Normal breath sounds. No wheezing or crackles. Cardiovascular: Regular rate and rhythm. s1 and s2 normal No clicks, rubs, gallops, or murmurs. Mild pedal edema Abdomen: Abdomen is soft, nontender. Bowel sounds are present Musculoskeletal: Spontaneously moving all extremities Skin: Left foot bandaged. Swelling has significantly improved Neuro: Alert oriented x 3 normal cranial nerves, no focal deficits - Assessment and Plan (1) Foot abscess, left Current Visit: Yes Status: Acute (2) Acute exacerbation of CHF (congestive heart failure) Current Visit: Yes Status: Acute (3) Morbid obesity Current Visit: Yes Status: Chronic (4) Type 2 diabetes mellitus Current Visit: Yes Status: Chronic (5) Hypertension Current Visit: Yes Status: Chronic (6) DVT prophylaxis Current Visit: Yes Status: Acute (7) Atrial fibrillation Current Visit: Yes Status: Chronic (8) Bilateral lower leg cellulitis Current Visit: Yes Status: Acute (9) Ulcer of left foot Current Visit: Yes Status: Acute (10) Hyponatremia Current Visit: Yes Status: Acute DVT Prophylaxis: Continue Xarelto - Summary of Assessment and Plan Summary of Assessment and Plan: Acute exacerbation of diastolic congestive heart failure: Patient continues to have a negative fluid balance. On Lasix once daily. Tolerating well. Ulcer and abscess on left foot dorsum: Responded well to antibiotic changes. Infectious disease consulted. Leukocytosis improving. We will follow infectious disease recommendations Cellulitis involving bilateral lower extremities: Antibiotics as above. Chronic kidney disease stage III: Creatinine 2.11 today. On daily dose of Lasix. Continue to monitor renal function. Hyponatremia: Resolved. Diabetes mellitus type 2: Patient treated with IV insulin overnight. Blood sugars have improved. We will transition to subcutaneous insulin. Monitor blood sugars. Diabetic diet. Atrial fibrillation: Rate controlled. On Cardizem. Continue Xarelto for anticoagulation. Patient reported an episode of hemoptysis last night. Chest x-ray was done which was negative for any acute process. We will continue to monitor patient. Hemoglobin levels are stable. Moderate risk for complications - Time Spent with Patient Total time spent is greater than 50% in coordination of care (as documented) at patient's floor/unit and/or counseling patient: Internal Medicine: Result - Labs CBC & Chem 7: 01/14/19 06:56 01/14/19 06:56 Labs: Short CBC 01/14/19 Range/Units 06:56 WBC 13.3 H (4.3-11.1) K/mcL Hgb 11.4 L (12.9-16.9) g/dL Hct 37.9 (37.5-50.1) % Plt Count 258 (140-400) K/mcL Neutrophils # 10.1 H (1.6-8.9) K/mcL BMP 01/14/19 06:56 Sodium 136 Potassium 4.6 Chloride 100 Carbon Dioxide 25 BUN 63 H Creatinine 2.11 H Glucose 156 H Calcium 9.2 - Impressions Impressions Chest X-Ray 01/13/19 17:27 IMPRESSION: No evidence of acute cardiopulmonary disease. D/ / Georgi Fraser MD / Georgi Fraser MD Interpreting Provider: Goergi Fraser MD Consult Discharge Plan - Plan Referrals: Marissa Pitts CNP [Primary Care Provider] - 01/16/19 12:15 pm (2) Acute exacerbation of CHF (congestive heart failure) Qualifiers: Heart failure type: diastolic Qualified Code(s): I50.33 - Acute on chronic diastolic (congestive) heart failure (4) Type 2 diabetes mellitus Qualifiers: Diabetes mellitus terminal carman insulin use: with fpc use Diabetes mellitus complication status: with skin complications Diabetes mellitus complication detail: with foot ulcer Qualified Code(s): E11.621 - Type 2 diabetes mellitus with foot ulcer; L97.509 - Non-pressure chronic ulcer of other part of unspecified foot with unspecified severity; Z79.4 - terminal clerk (current) use of insulin (5) Hypertension Qualifiers: Hypertension type: essential hypertension Qualified Code(s): I10 - Essential (primary) hypertension (7) Atrial fibrillation Qualifiers: Atrial fibrillation type: paroxysmal Qualified Code(s): I48.0 - Paroxysmal atrial fibrillation (9) Ulcer of left foot Qualifiers: Non-pressure ulcer stage: limited to breakdown of skin Qualified Code(s): L97.521 - Non-pressure chronic ulcer of other part of left foot limited to breakdown of skin
--- NOTE | 2019-01-14 13:52 | Podiatry Progress Note ---
Date of Encounter: 01/14/19 Time of Encounter: 13:00 - Assessment and Plan (1) Diabetic foot ulcer Current Visit: Yes Status: Acute POD #3 s.p I&D of left foot abscess. Healing well at this time. Moderate amount of edema observed likely dependent as patient has been sitting to side of bed with feet dangling PLAN: Dressing removed at beside Flushed wound with saline, repacked with packing strip 4x4 kerlix and GLENNA wrap applied for compression Elevate to decrease dependent edema Surgical cultures and stain negative Patient currently on vanc rocephin and flagyl- ID on board WBC 13.3 and trending down, 19 on monday- ID documents likely reactive- agree IV antibiotic therapy per ID recommendations Wound care as ordered, packing strips, 4x4 kerlix and GLENNA There is also a dry surgical wound to the right foot, apply dry dressing daily - wound is benign and non infectious in appearance Patient will need to follow up with in wound care center 1 week following discharge SW consult for IV ATB and dressing changes if patient to go home or ECF placement Continue to monitor Call with any fevers chills n/v or fls. Qualifiers: Diabetic foot ulcer location: unspecified part of foot Diabetes mellitus type: other specified (including PIERCE) Laterality: unspecified laterality Non-pressure ulcer stage: unspecified non-pressure ulcer stage Qualified Code(s): E13.621 - Other specified diabetes mellitus with foot ulcer; L97.509 - Non-pressure chronic ulcer of other part of unspecified foot with unspecified severity (2) Foot abscess, left Current Visit: Yes Status: Acute Subjective Interval history: POD #3 s.p I&D of left foot abscess. Patient sitting to side of bed on arrival. Resting comfortably. Denies pain. Dressing to LLE intact, slight bloody striethrough drainage noted. Patient denies any known fevers, chills, n/v fls, calf pain or sob. Objective - Vital Signs Vital Signs: Vital Signs Temp Pulse Resp BP Pulse Ox 01/14/19 11:54 98.1 F 68 16 144/80 96 01/14/19 07:20 18 98 01/14/19 07:07 97.5 F L 51 16 117/74 97 01/14/19 02:53 97.9 F 56 16 138/73 97 01/14/19 00:09 99.3 F 101 16 177/82 97 01/13/19 20:21 16 99 01/13/19 19:19 97.9 F 79 16 164/76 96 01/13/19 15:43 97.6 F 69 16 154/76 98 Intake and Output 01/13/19 01/14/19 01/14/19 23:59 07:59 15:59 Intake Total 100 / 540 525.6 / 775.6 250 / 775.6 Output Total 1974 1300 / 1300 Balance -700 / -1435 525.6 / -524.4 -1050 / -524.4 Intake: IV Fluids 100 / 300 525.6 / 535.6 10 / 535.6 0.9 % Sodium Chloride 500 ML @ 127 / 127 20 mls/hr IVC .Q24H [facility] Rx#: [id number] HumuLIN R 100 UNIT In 0.9 % 38.6 / 38.6 Sodium Chloride 100 ML @ 10 UNIT/HR 10.1 mls/hr IVC CONT [facility] Rx#:[id number] Rocephin 1,000 MG In Water for inj. (sterile) 10 ML @ 600 mls/ hr IVP DAILY [facility] Rx#:[id number] Flagyl Premix 500 MG/100 ML 500 100 / 300 100 / 100 mg In 100 ml @ 100 mls/hr IVPB Q8HR [facility] Rx#:[id number] Vancocin 1,500 MG In 0.9 % 250 / 250 Sodium Chloride 250 ML @ 166. 667 mls/hr IVPB Q24H [facility] Rx#: [id number] Oral 240 / 240 Output: Urine 1974 1300 / 1300 Other: Meal Breakfast Percent of Meal Consumed 100% Weight 132.5 kg Blood Glucose* 330 133 279 Patient Weight 01/14/19 23:59 Weight 132.5 kg - Exam Exam: General Examination: CONSTITUTIONAL: Alert, oriented, in no acute distress, non-toxic. EXTREMITIES: CFT 3 seconds all toes. Edema +1 and pedal pulses palpable. SKIN: Surgical incision noted to dorsal aspect of left foot. Sutures intact with surgically created opening. Scant bloody drainage noted. Mild surrounding edema. Minimal edema or warmth. Resolving ecchynosis noted along distal aspect of foot. No odor. No ascending cellulitis. No lymphangitis. NEUROLOGIC:Loss of protective sensation. - Lab Result Diagrams: 01/14/19 06:56 01/14/19 06:56 Labs: Abnormal lab results WBC 13.3 K/mcL (4.3-11.1) H 01/14/19 06:56 Hgb 11.4 g/dL (12.9-16.9) L 01/14/19 06:56 Hct 37.2 % (37.5-50.1) L 01/11/19 05:42 MCV 77.7 fL (83.0-100.0) L 01/14/19 06:56 MCH 23.4 pg (28.0-33.3) L 01/14/19 06:56 MCHC 30.1 g/dL (31.6-35.5) L 01/14/19 06:56 RDW 17.1 % (11.5-14.5) H 01/14/19 06:56 10.1 K/mcL (1.6-8.9) H 01/14/19 06:56 ESR 58 mm/hr (0-10) H 01/09/19 06:06 Sodium 126 mEq/L (136-145) L 01/13/19 02:11 Potassium 5.3 mEq/L (3.5-5.1) H 01/13/19 02:11 Chloride 96 mEq/L (98-107) L 01/13/19 02:11 Carbon Dioxide 20 mEq/L (23-29) L 01/13/19 02:11 BUN 63 mg/dL (6-20) H 01/14/19 06:56 2.11 mg/dL (0.70-1.30) H 01/14/19 06:56 Est GFR ( Amer) 40 (> 60) L 01/14/19 06:56 Est GFR (Non-Af Amer) 33 (> 60) L 01/14/19 06:56 30 (6-26) H 01/14/19 06:56 Glucose 156 mg/dL (70-105) H 01/14/19 06:56 POC Glucose 178 mg/dL (70-99) H 01/14/19 05:02 9.8 % (-5.6) H 01/08/19 05:24 303 (280-300) H 01/14/19 06:56 0.04 ng/mL (< 0.04) H* 01/08/19 05:24 13 mg/L (Less than 10) H 01/10/19 02:02 B-Natriuretic Peptide 288 pg/mL (Less than 100) H 01/07/19 14:45 Microbiology, Last 48 Hours 01/11/19 13:12 Anaerobic Culture - Preliminary Left Foot At this time, no anaerobic growth is present. The culture will be finalized after 5 days of incubation. 01/11/19 13:12 Wound Culture - Final Left Foot No pathogens isolated. Consult Discharge Plan - Plan Referrals: Marissa Pitts CNP [Primary Care Provider] - 01/16/19 12:15 pm
[2019-01-14] MEDS: metroNIDAZOLE 500 MG TABLET PO SCH ×2 (14:37→21:22)
[2019-01-14] MEDS: Insulin DETEMIR 100 UNIT/ML X5UNITS SQ SCH ×2 (14:38→21:25)
[2019-01-15 02:48] LABS: Basophils # 0.1 K/mcL (0.0-0.2); Basophils % 0.5 %; Eosinophils # 0.3 K/mcL (0.0-0.6); Eosinophils % 2.5 %; Hematocrit 35.7 % (37.5-50.1); Hemoglobin 11.1 g/dL (12.9-16.9); Immature Granulocytes % 0.6 % (0-4); Lymphocytes # 1.7 K/mcL (0.6-4.6); Lymphocytes % 13.7 %; Mean Corpuscular HGB Conc 31.1 g/dL (31.6-35.5); Mean Corpuscular Hemoglobin 23.6 pg (28.0-33.3); Mean Platelet Volume 10.5 fL (9.4-12.4); Monocytes # 1.2 K/mcL (0.0-1.3); Monocytes % 9.6 %; Platelet Count 239 K/mcL (140-400); Red Cell Distribution Width 16.8 % (11.5-14.5); Segmented Neutrophils % 73.1 %; White Blood Count 12.3 K/mcL (4.3-11.1)
[2019-01-15 03:04] LABS: Calcium 9.1 mg/dL (8.6-10.3); Potassium 4.7 mEq/L (3.5-5.1)
[2019-01-15] MEDS: Budesonide/Formoterol 160/4.5 1 PUFF INH IH SCH ×2 (07:14→22:56)
[2019-01-15] MEDS: Insulin Human Regular 100 UNIT in 0.9 % Sodium Chloride 100 ML IVC SCH (07:46)
[2019-01-15] MEDS: cefTRIAXone 2,000 MG in Water for inj. (sterile) 20 ML 20 ML IVP SCH (08:03)
[2019-01-15] MEDS: Insulin DETEMIR 100 UNIT/ML X5UNITS SQ SCH ×2 (08:04→20:10)
[2019-01-15] MEDS: Cyanocobalamin (B-12) 1,000 MCG TABLET PO SCH (08:04)
[2019-01-15] MEDS: Insulin LISPRO 300 UNITS/3 ML VIAL SQ SCH ×7 (08:05→20:11)
[2019-01-15] MEDS: Diltiazem CD (24hr) 120 MG CAPSULE PO SCH (08:05)
[2019-01-15] MEDS: *HR* Rivaroxaban 15 MG TABLET PO SCH (08:05)
[2019-01-15] MEDS: metroNIDAZOLE 500 MG TABLET PO SCH ×3 (08:05→20:03)
[2019-01-15] MEDS: cloNIDine HCl 0.1 MG TABLET PO SCH ×3 (08:05→20:03)
[2019-01-15] MEDS: Gabapentin 100 MG CAPSULE PO SCH ×3 (08:05→20:03)
[2019-01-15] MEDS: Aspirin Enteric Coated 81 MG Tablet PO SCH (08:05)
[2019-01-15] MEDS: Furosemide 40 MG TABLET PO SCH (08:05)
[2019-01-15] MEDS: Cholecalciferol (D-3) 1,000 UNIT TABLET PO SCH (08:05)
[2019-01-15] MEDS: Isosorbide MONOnitrate (24 HR) 30 MG TAB.ER.24H PO SCH (08:05)
--- NOTE | 2019-01-15 11:32 | Infectious Disease Progress No ---
ID Progress Note Date of Encounter: 01/15/19 Time of Encounter: 11:05 - Subjective Subjective: Patient seen and examined. No acute events noted overnight. Patient denies pain at surgery site currently. Denies fevers, chills, rigors. Denies chest pain, shortness of breath, or cough. Denies nausea, vomiting, diarrhea, or constipation. Reports last bowel movement was yesterday. Denies abdominal pain or urinary complaints. Denies oral thrush or skin rashes. - Objective CBC & Chem 7: 01/16/19 01:51 01/16/19 01:51 - Exam Vitals: Temp Pulse Resp BP Pulse Ox 97.5 F L 61 16 119/72 97 01/15/19 07:40 01/15/19 07:40 01/15/19 07:40 01/15/19 07:40 01/15/19 07:40 Exam: Head: Atraumatic, normal inspection, normocephalic. Eye: EOMI, PERRLA, no scleral icterus noted. ENT: Mucous membranes moist. No odontogenic infection noted. Neck: Normal inspection, no meningismus. Respiratory: Fine expiratory wheezes noted throughout. No respiratory distress noted. Cardiovascular: Regular rate and rhythm, S1 and S2 audible. No murmurs, rubs, or gallops. GI: Soft, obese, normal bowel sounds. Extremities:No joint swelling or tenderness noted. Left foot dressing clean, dry, and intact. Ecchymosis noted to the proximal ax specks of toes #1, 2, and 3. Back: Normal inspection. No vertebral tenderness noted. Neurological: Alert, oriented 3, no focal deficits. Psychiatric: normal affect, normal mood. Skin: Dry, intact, warm. Normal color. No rashes. - Assessment and Plan (1) Leukocytosis Current Visit: Yes Status: Acute Likely reactive secondary to surgery. Improved. Qualifiers: Leukocytosis type: unspecified Qualified Code(s): D72.829 - Elevated white blood cell count, unspecified SNOMED Code(s): 051216253, 922209300 (2) Foot abscess, left Current Visit: Yes Status: Acute Location: Left foot. Cause of organism: Unclear. X-ray of the left foot showed findings concerning for soft tissue mass overlying the medial fifth MTP joint. MRI of the left foot showed findings concerning for bland edema versus cellulitis as well as an abscess, but no osteomyelitis. Podiatry consult. Status post I&D of the left foot abscess 01/11/19. Intraoperative cultures are negative. Anaerobic cultures no growth. Gram stain is negative. Currently on Rocephin, Flagyl, and vancomycin. SNOMED Code(s): 90128954068470676 (3) Acute exacerbation of CHF (congestive heart failure) Current Visit: Yes Status: Acute Chest x-ray on admission showed findings consistent with a small left pleural effusion, pulmonary vascular congestion, and cardiomegaly. BNP elevated at 283. TTE showed an EF of 55%. Further workup and management per the primary team. Qualifiers: Heart failure type: diastolic Qualified Code(s): I50.33 - Acute on chronic diastolic (congestive) heart failure SNOMED Code(s): 061999202, 07405399998421 (4) Ulcer of left foot Current Visit: Yes Status: Acute Likely secondary to swelling of the bilateral lower extremities. Podiatry consult. Qualifiers: Non-pressure ulcer stage: limited to breakdown of skin Qualified Code(s): L97.521 - Non-pressure chronic ulcer of other part of left foot limited to breakdown of skin SNOMED Code(s): 95115833 (5) Morbid obesity Current Visit: Yes Status: Chronic SNOMED Code(s): 190793726 (6) CAD (coronary artery disease) Current Visit: No Status: Chronic Qualifiers: Coronary Disease-Associated Artery/Lesion type: [place] artery [place] vs. transplanted heart: [place] heart Associated angina: without angina Qualified Code(s): I25.10 - Atherosclerotic heart disease of [place] coronary artery without angina pectoris SNOMED Code(s): 09097774 (7) Chronic kidney disease, stage III (moderate) Current Visit: No Status: Chronic Monitor renal function closely and does just medications. Avoid nephrotoxins as able. SNOMED Code(s): 188626021 (8) Type 2 diabetes mellitus Current Visit: Yes Status: Chronic Uncontrolled. Hemoglobin A1c 9.8%. Blood sugars continue to run high. Recommend aggressive glucose management and control to promote wound healing and prevent reinfection. Management per the primary team. 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 Await intraoperative anaerobic cultures to finalize. CHF and diabetes management per the primary team. Wound care and activity per the podiatry team. Continue vancomycin IV. Pharmacy to dose. Goal trough approximately 15. Continue Rocephin, but increase to 2 g IV daily. Continue Flagyl 500 mg 3 times a day, but transitioned to by mouth. Duration of treatment depends on the clinical picture. Can consider doxycycline plus Augmentin on discharge to complete a 14 day post-op course. Treat through 01/25/19. Monitor renal function for drug toxicity and dose adjust antibiotics. Consult Discharge Plan - Plan Referrals: Evin Cantu DPM [Partnered Physician] - 01/22/19 9:15 am Marissa Pitts CNP [Primary Care Provider] - 01/16/19 12:15 pm - Attending Attestation I have personally performed a face to face evaluation on this patient. I have reviewed and agree with the care plan. History and Exam by me shows: Assessment and plan: Left foot abscess causative organism unclear MRI of the left foot showed findings concerning for plan edema versus cellulitis as well as an abscess but no osteomyelitis. Status post I&D 2018 Lesion on the left lower extremity about 4 cm in diameter with a black eschar we will watch closely Morbid obesity BMI 43 CAD Recommendations: Continue vancomycin IV. Pharmacy to dose. Goal trough approximately 15. Continue Rocephin, but increase to 2 g IV daily. Continue Flagyl 500 mg 3 times a day, but transitioned to by mouth. Duration of treatment depends on the clinical picture. Can consider doxycycline plus Augmentin on discharge to complete a 14 day post-op course. Treat through 01/25/19. d/w [employer] Monitor renal function for drug toxicity and dose adjust antibiotics.
--- NOTE | 2019-01-15 13:52 | Podiatry Progress Note ---
Date of Encounter: 01/15/19 Time of Encounter: 13:00 - Assessment and Plan (1) Diabetic foot ulcer Current Visit: Yes Status: Acute POD #4 s.p I&D of left foot abscess. Healing well at this time. Moderate amount of edema observed likely dependent as patient has been sitting to side of bed with feet dangling PLAN: Dressing removed at beside Flushed wound with saline, repacked with packing strip 4x4 kerlix and GLENNA wrap applied for compression Elevate to decrease dependent edema Surgical cultures and stain negative Patient currently on vanc rocephin and flagyl- ID on board OK to send on oral ATB per ID recommendations WBC 12.3 and trending down, 19 on monday- ID documents likely reactive- agree Wound care as ordered, packing strips, 4x4 kerlix and GLENNA- needs changed BID while inpatient related to bloody strikethrough drainage Due to non palpable pulses bilateral SHAUN ordered to determine blood flow and if healing complications are of concern. There is also a dry surgical wound to the right foot, apply dry dressing daily - wound is benign and non infectious in appearance Patient will need to follow up with in wound care center 1 week following discharge SW following for discharge planning Continue to monitor Call with any fevers chills n/v or fls. Qualifiers: Diabetic foot ulcer location: unspecified part of foot Diabetes mellitus type: other specified (including PIERCE) Laterality: unspecified laterality Non-pressure ulcer stage: unspecified non-pressure ulcer stage Qualified Code(s): E13.621 - Other specified diabetes mellitus with foot ulcer; L97.509 - Non-pressure chronic ulcer of other part of unspecified foot with unspecified severity (2) Foot abscess, left Current Visit: Yes Status: Acute Subjective Interval history: POD #4 s.p I&D of left foot abscess. Patient resting in bed on arrival. Resting comfortably. Denies pain. Dressing to LLE intact, slight bloody striethrough drainage noted. Patient denies any known fevers, chills, n/v fls, calf pain or sob. Objective - Vital Signs Vital Signs: Vital Signs Temp Pulse Resp BP Pulse Ox 01/15/19 12:18 97.8 F 54 16 98/54 97 01/15/19 07:40 97.5 F L 61 16 119/72 97 01/15/19 07:14 16 96 01/15/19 03:34 97.5 F L 67 16 163/87 96 01/14/19 23:03 98.0 F 73 16 166/84 97 01/14/19 22:51 16 98 01/14/19 19:31 98.0 F 85 16 168/89 98 01/14/19 15:50 98.1 F 68 16 119/72 97 Intake and Output 01/14/19 01/15/19 01/15/19 23:59 07:59 15:59 Intake Total 360 / 1605.6 510 / 510 Output Total 750 / 2950 600 / 600 Balance -390 / -1344.4 -600 / -90 510 / -90 Intake: IV Fluids 270 / 270 Rocephin 2,000 MG In Water for inj. (sterile) 20 ML @ 600 mls/ hr IVP Q24H [facility] Rx#:[id number] Vancocin 1,500 MG In 0.9 % 250 / 250 Sodium Chloride 250 ML @ 166. 667 mls/hr IVPB Q24H [facility] Rx#: [id number] Oral 360 / 720 240 / 240 Output: Urine 750 / 2950 600 / 600 Other: Meal Dinner Breakfast Percent of Meal Consumed 100% 100% Stool Size Large Stool Consistency formed Stool Color Brown Blood Glucose* 299 159 239 - Exam Exam: General Examination: CONSTITUTIONAL: Alert, oriented, in no acute distress, non-toxic. EXTREMITIES: CFT 3 seconds all toes. Edema +1 and pedal pulses non palpable. Toes warm. SKIN: Surgical incision noted to dorsal aspect of left foot. Sutures intact with surgically created opening. Scant bloody drainage noted. Mild surrounding edema, slight improvement in appearance since 01/14 exam. Minimal erythema or warmth. Resolving ecchynosis noted along distal aspect of foot. No odor. No ascending cellulitis. No lymphangitis. NEUROLOGIC:Loss of protective sensation. - Lab Result Diagrams: 01/15/19 02:19 01/15/19 02:19 Labs: Abnormal lab results WBC 12.3 K/mcL (4.3-11.1) H 01/15/19 02:19 Hgb 11.1 g/dL (12.9-16.9) L 01/15/19 02:19 Hct 35.7 % (37.5-50.1) L 01/15/19 02:19 MCV 76.0 fL (83.0-100.0) L 01/15/19 02:19 MCH 23.6 pg (28.0-33.3) L 01/15/19 02:19 MCHC 31.1 g/dL (31.6-35.5) L 01/15/19 02:19 RDW 16.8 % (11.5-14.5) H 01/15/19 02:19 9.0 K/mcL (1.6-8.9) H 01/15/19 02:19 ESR 58 mm/hr (0-10) H 01/09/19 06:06 Sodium 133 mEq/L (136-145) L 01/15/19 02:19 Potassium 5.3 mEq/L (3.5-5.1) H 01/13/19 02:11 Chloride 96 mEq/L (98-107) L 01/13/19 02:11 Carbon Dioxide 20 mEq/L (23-29) L 01/13/19 02:11 BUN 65 mg/dL (6-20) H 01/15/19 02:19 2.02 mg/dL (0.70-1.30) H 01/15/19 02:19 Est GFR ( Amer) 42 (> 60) L 01/15/19 02:19 Est GFR (Non-Af Amer) 34 (> 60) L 01/15/19 02:19 32 (6-26) H 01/15/19 02:19 Glucose 170 mg/dL (70-105) H 01/15/19 02:19 POC Glucose 299 mg/dL (70-99) H 01/14/19 19:58 9.8 % (-5.6) H 01/08/19 05:24 303 (280-300) H 01/14/19 06:56 0.04 ng/mL (< 0.04) H* 01/08/19 05:24 13 mg/L (Less than 10) H 01/10/19 02:02 B-Natriuretic Peptide 288 pg/mL (Less than 100) H 01/07/19 14:45 Microbiology, Last 48 Hours 01/11/19 13:12 Anaerobic Culture - Preliminary Left Foot At this time, no anaerobic growth is present. The culture will be finalized after 5 days of incubation. 01/11/19 13:12 Wound Culture - Final Left Foot No pathogens isolated. Consult Discharge Plan - Plan Referrals: Marissa Pitts CNP [Primary Care Provider] - 01/16/19 12:15 pm
--- NOTE | 2019-01-15 15:08 | Discharge Summary ---
Orders not resulted at time of discharge: Pending orders 01/11/19 13:12 Culture,Anaerobic [RM] Routine 01/15/19 13:54 SHAUN [EV ankle brachial index BI] Routine 01/16/19 08:00 Vancomycin,Trough Timed Date of Encounter: 01/15/19 - Discharge Diagnosis (1) Foot abscess, left Status: Acute (2) Acute exacerbation of CHF (congestive heart failure) Status: Acute Qualifiers: Heart failure type: diastolic Qualified Code(s): I50.33 - Acute on chronic diastolic (congestive) heart failure (3) Morbid obesity Status: Chronic (4) Type 2 diabetes mellitus Status: Chronic Qualifiers: Diabetes mellitus jail insulin use: with jail use Diabetes me llitus complication status: with skin complications Diabetes mellitus complication detail: with foot ulcer Qualified Code(s): E11.621 - Type 2 diabetes mellitus with foot ulcer; L97.509 - Non-pressure chronic ulcer of other part of unspecified foot with unspecified severity; 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 (5) Hypertension Status: Chronic Qualifiers: Hypertension type: essential hypertension Qualified Code(s): I10 - Es sential (primary) hypertension (6) DVT prophylaxis Status: Acute (7) Atrial fibrillation Status: Chronic Qualifiers: Atrial fibrillation type: paroxysmal Qualified Code(s): I48.0 - Paroxysmal atrial fibrillation (8) Bilateral lower leg cellulitis Status: Acute (9) Ulcer of left foot Status: Acute Qualifiers: Non-pressure ulcer stage: limited to breakdown of skin Qualified Code(s): L97.521 - Non-pressure chronic ulcer of other part of left foot limited to breakdown of skin (10) Hyponatremia Status: Acute Hospital course: Mr. Mercedes is a 53 year old male - Time Spent with Patient Total time spent providing and/or coordinating discharge services: - Discharge Medications Prescriptions: No Action Diltiazem CD (24hr) [Cardizem CD] 120 mg PO DAILY #30 tab Isosorbide MONOnitrate (24 HR) [Imdur] 30 mg PO DAILY #30 tab Cetirizine HCl [Zyrtec] 10 mg PO DAILY cloNIDine HCl [CloNIDine HCl] 0.1 mg PO TID Metoprolol [Lopressor] 25 mg PO BID Budesonide/Formoterol 160/4.5 [Symbicort 160/4.5] 2 puff IH BID Albuterol Sulfate [Ventolin Hfa] 2 puff IH Q4H PRN PRN Reason: Shortness Of Breath Atorvastatin [Lipitor] 40 mg PO HS Aspirin [Lo-Dose Aspirin EC] 81 mg PO QAM Rivaroxaban [Xarelto] 20 mg PO DAILY Insulin Human Regular [HumuLIN R] 80 unit SQ BID Lisinopril [Zestril] 10 mg PO DAILY Fluticasone/Vilanterol [Breo Ellipta 100-25 Mcg INH] 1 each IH DAILY Ascorbic Acid [Vitamin C] 500 mg PO DAILY #30 capsule Cyanocobalamin (B-12) [Vitamin B12] 1,000 mcg PO DAILY #30 tablet Furosemide [Lasix] 40 mg PO DAILY #30 tablet Cholecalciferol (D-3) [Vitamin D] 2,000 unit PO DAILY #60 tablet Ferrous Sulfate 325 mg PO MOWEFR Home Medications: Aspirin [Lo-Dose Aspirin EC] 81 mg PO QAM 03/11/16 [History] Atorvastatin [Lipitor] 40 mg PO HS 03/11/16 [History] Diltiazem CD (24hr) [Cardizem CD] 120 mg PO DAILY #30 tab 03/07/17 [Rx] Isosorbide MONOnitrate (24 HR) [Imdur] 30 mg PO DAILY #30 tab 03/07/17 [Rx] Rivaroxaban [Xarelto] 20 mg PO DAILY 04/22/17 [History] Cetirizine HCl [Zyrtec] 10 mg PO DAILY 05/08/17 [History] cloNIDine HCl [CloNIDine HCl] 0.1 mg PO TID 12/16/17 [History] Metoprolol [Lopressor] 25 mg PO BID 12/22/17 [History] Insulin Human Regular [HumuLIN R] 80 unit SQ BID 08/25/18 [History] Fluticasone/Vilanterol [Breo Ellipta 100-25 Mcg INH] 1 each IH DAILY 11/05/18 [History] Lisinopril [Zestril] 10 mg PO DAILY 11/05/18 [History] Ascorbic Acid [Vitamin C] 500 mg PO DAILY #30 capsule 11/07/18 [Rx] Cholecalciferol (D-3) [Vitamin D] 2,000 unit PO DAILY #60 tablet 11/07/18 [Rx] Cyanocobalamin (B-12) [Vitamin B12] 1,000 mcg PO DAILY #30 tablet 11/07/18 [Rx] Furosemide [Lasix] 40 mg PO DAILY #30 tablet 11/07/18 [Rx] Ferrous Sulfate 325 mg PO MOWEFR 12/23/18 [History] Albuterol Sulfate [Ventolin Hfa] 2 puff IH Q4H PRN 01/07/19 [History] Budesonide/Formoterol 160/4.5 [Symbicort 160/4.5] 2 puff IH BID 01/07/19 [History] Allergies/Adverse Reactions: Allergy/AdvReac Type Severity Reaction Status Date / Time No Known Allergies Allergy Verified 09/11/18 14:14 Date of admission: 01/09/19 17:39 Primary care physician: Marissa Pitts Consults: 01/08/19 09:21 Consult to Nurse Navigator [CONS] Routine Comment: [facility] 01/09/19 09:46 Consult to Podiatry [CONS] Routine Consulting Provider: Pod[facility] Reason for Consult: Left foot cellulitis/ with possible developing abscess Time Notified: 09:47 Call Completed: Yes 01/13/19 14:54 Consult to Infectious Diseases [CONS] Routine Consulting Provider: Infectious Disease [place] Reason for Consult: Left foot cellulitis and abscess Call Completed: No 01/14/19 15:54 Consult to Talent Manager [CONS] Routine Reason for SW Consult: Discharge planning HHC vs ECF - Constitutional Vitals: Temp Pulse Resp BP Pulse Ox 97.8 F 54 16 98/54 97 01/15/19 12:18 01/15/19 12:18 01/15/19 12:18 01/15/19 12:18 01/15/19 12:18 - Patient Status Condition: Fair - Discharge Instructions Follow Up With: Evin Cantu DPM [Partnered Physician] - 01/22/19 9:15 am Marissa Pitts CNP [Primary Care Provider] - 01/16/19 12:15 pm
--- NOTE | 2019-01-15 15:14 | Physician Discharge Referral ---
ExtendedCare Referral Info Institutional Level of Care: Skilled - Diagnosis (1) Foot abscess, left Priority: Primary Status: Acute (2) Acute exacerbation of CHF (congestive heart failure) Priority: Secondary Status: Acute (3) Morbid obesity Priority: Secondary Status: Chronic (4) Type 2 diabetes mellitus Priority: Secondary Status: Chronic (5) Hypertension Priority: Secondary Status: Chronic (6) DVT prophylaxis Priority: Secondary Status: Acute (7) Atrial fibrillation Priority: Secondary Status: Chronic (8) Bilateral lower leg cellulitis Priority: Secondary Status: Acute (9) Ulcer of left foot Priority: Secondary Status: Acute (10) Hyponatremia Priority: Secondary Status: Acute Prognosis: Fair Aware of Diagnosis: Patient Aware of Prognosis: Patient - Transfer Medications Home Medications: Aspirin [Lo-Dose Aspirin EC] 81 mg PO QAM 03/11/16 [History] Atorvastatin [Lipitor] 40 mg PO HS 03/11/16 [History] Diltiazem CD (24hr) [Cardizem CD] 120 mg PO DAILY #30 tab 03/07/17 [Rx] Isosorbide MONOnitrate (24 HR) [Imdur] 30 mg PO DAILY #30 tab 03/07/17 [Rx] Rivaroxaban [Xarelto] 20 mg PO DAILY 04/22/17 [History] Cetirizine HCl [Zyrtec] 10 mg PO DAILY 05/08/17 [History] cloNIDine HCl [CloNIDine HCl] 0.1 mg PO TID 12/16/17 [History] Metoprolol [Lopressor] 25 mg PO BID 12/22/17 [History] Insulin Human Regular [HumuLIN R] 80 unit SQ BID 08/25/18 [History] Fluticasone/Vilanterol [Breo Ellipta 100-25 Mcg INH] 1 each IH DAILY 11/05/18 [History] Lisinopril [Zestril] 10 mg PO DAILY 11/05/18 [History] Ascorbic Acid [Vitamin C] 500 mg PO DAILY #30 capsule 11/07/18 [Rx] Cholecalciferol (D-3) [Vitamin D] 2,000 unit PO DAILY #60 tablet 11/07/18 [Rx] Cyanocobalamin (B-12) [Vitamin B12] 1,000 mcg PO DAILY #30 tablet 11/07/18 [Rx] Furosemide [Lasix] 40 mg PO DAILY #30 tablet 11/07/18 [Rx] Ferrous Sulfate 325 mg PO MOWEFR 12/23/18 [History] Albuterol Sulfate [Ventolin Hfa] 2 puff IH Q4H PRN 01/07/19 [History] Budesonide/Formoterol 160/4.5 [Symbicort 160/4.5] 2 puff IH BID 01/07/19 [History] Allergies/Adverse Reactions: Allergy/AdvReac Type Severity Reaction Status Date / Time No Known Allergies Allergy Verified 09/11/18 14:14 - Respiratory Orders Smoking Cessation: Smoking cessation has been advised. For more information, call the [place] Tobacco Quit Line at 8-361-LRIBNOW. CERTIFICATION: I certify that the transfer of the above named patient to an Extended Care Facility is necessary for the continuing treatment of the diagnosis listed. The above information is true and accurate reflection of patient's current condition. Confidential - Redisclosure prohibited without a patient's written consent.
--- NOTE | 2019-01-15 15:24 | Internal Med Progress Note ---
Hospitalist Progress Note - Encounter Date of Encounter: 01/15/19 Time of Encounter: 15:20 - Subjective Interval History: Evaluated patient earlier today. Doing well overall. Pain in his left foot is well controlled. Denies any fevers or chills overnight. - Exam Vitals: Temp Pulse Resp BP Pulse Ox 97.8 F 54 16 98/54 97 01/15/19 12:18 01/15/19 12:18 01/15/19 12:18 01/15/19 12:18 01/15/19 12:18 Exam: General: Patient is alert, no acute distress, oriented x 3 Respiratory: Good respiratory effort. Normal breath sounds. No wheezing or crackles. Cardiovascular: Regular rate and rhythm. s1 and s2 normal No clicks, rubs, gallops, or murmurs. Pedal edema significantly improved. Abdomen: Abdomen is soft, nontender. Bowel sounds are present Musculoskeletal: Spontaneously moving all extremities. Left foot bandaged. Skin: warm, dry, intact. Neuro: Alert oriented x 3 normal cranial nerves, no focal deficits - Assessment and Plan (1) Foot abscess, left Current Visit: Yes Status: Acute (2) Acute exacerbation of CHF (congestive heart failure) Current Visit: Yes Status: Acute (3) Morbid obesity Current Visit: Yes Status: Chronic (4) Type 2 diabetes mellitus Current Visit: Yes Status: Chronic (5) Hypertension Current Visit: Yes Status: Chronic (6) DVT prophylaxis Current Visit: Yes Status: Acute (7) Atrial fibrillation Current Visit: Yes Status: Chronic (8) Bilateral lower leg cellulitis Current Visit: Yes Status: Acute (9) Ulcer of left foot Current Visit: Yes Status: Acute (10) Hyponatremia Current Visit: Yes Status: Acute DVT Prophylaxis: Continue Xarelto - Summary of Assessment and Plan Summary of Assessment and Plan: Acute exacerbation of diastolic congestive heart failure: Patient treated with Lasix intravenously and metolazone initially. Has had good response to this regimen. He has -15 L fluid balance during this hospitalization. Now doing well with single daily dosing of 40 mg Lasix. Avoiding higher doses due to his renal function and hyponatremia. Continue fluid restriction. Ulcer and abscess on left foot dorsum: Surgical culture showed no growth. Infectious disease recommends that the patient be discharged on oral antibiotics when medically stable. Podiatry following. Would address ordered SHAUN. Will follow results and consult vascular surgery if indicated. Cellulitis involving bilateral lower extremities: Antibiotics as above. Improve d. Chronic kidney disease stage III: Creatinine 2.02 today. Continue to monitor renal function closely. Hyponatremia: Sodium 133 today. We will monitor continue fluid restriction Diabetes mellitus type 2: Blood sugars remain elevated but better controlled overall. We will increase long-acting insulin dosage. Atrial fibrillation: Rate controlled. On Cardizem. Continue Xarelto for anticoagulation. Patient had an episode of hemoptysis 2 days back. No further episodes since then. Moderate risk for complications - Time Spent with Patient Total time spent is greater than 50% in coordination of care (as documented) at patient's floor/unit and/or counseling patient: Internal Medicine: Result - Labs CBC & Chem 7: 01/15/19 02:19 01/15/19 02:19 Labs: Short CBC 01/15/19 Range/Units 02:19 WBC 12.3 H (4.3-11.1) K/mcL Hgb 11.1 L (12.9-16.9) g/dL Hct 35.7 L (37.5-50.1) % Plt Count 239 (140-400) K/mcL Neutrophils # 9.0 H (1.6-8.9) K/mcL BMP 01/15/19 02:19 Sodium 133 L Potassium 4.7 Chloride 103 Carbon Dioxide 24 BUN 65 H Creatinine 2.02 H Glucose 170 H Calcium 9.1 Consult Discharge Plan - Plan Referrals: Evin Cantu DPM [Partnered Physician] - 01/22/19 9:15 am Marissa Pitts CNP [Primary Care Provider] - 01/16/19 12:15 pm (2) Acute exacerbation of CHF (congestive heart failure) Qualifiers: Heart failure type: diastolic Qualified Code(s): I50.33 - Acute on chronic diastolic (congestive) heart failure (4) Type 2 diabetes mellitus Qualifiers: Diabetes mellitus retirement insulin use: with salvage determiner use Diabetes mellitus complication status: with skin complications Diabetes mellitus complication detail: with foot ulcer Qualified Code(s): E11.621 - Type 2 diabetes mellitus with foot ulcer; L97.509 - Non-pressure chronic ulcer of other part of unspecified foot with unspecified severity; 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
[2019-01-15] MEDS: *HR* OxyCODONE/APAP 5/325 TABLET PO PRN ×2 (17:04→22:58)
[2019-01-16 02:48] LABS: Basophils # 0.1 K/mcL (0.0-0.2); Basophils % 0.4 %; Eosinophils # 0.4 K/mcL (0.0-0.6); Eosinophils % 3.4 %; Hematocrit 37.6 % (37.5-50.1); Hemoglobin 11.3 g/dL (12.9-16.9); Immature Granulocytes % 0.7 % (0-4); Lymphocytes # 1.5 K/mcL (0.6-4.6); Lymphocytes % 12.4 %; Mean Corpuscular HGB Conc 30.1 g/dL (31.6-35.5); Mean Corpuscular Hemoglobin 23.3 pg (28.0-33.3); Mean Corpuscular Volume 77.7 fL (83.0-100.0); Mean Platelet Volume 10.4 fL (9.4-12.4); Monocytes # 1.1 K/mcL (0.0-1.3); Monocytes % 8.7 %; Platelet Count 228 K/mcL (140-400); Red Blood Count 4.84 M/mcL (4.19-5.50); Segmented Neutrophils % 74.4 %; White Blood Count 12.1 K/mcL (4.3-11.1)
[2019-01-16 03:07] LABS: Calcium 9.2 mg/dL (8.6-10.3); Potassium 4.7 mEq/L (3.5-5.1)
[2019-01-16] MEDS: Budesonide/Formoterol 160/4.5 1 PUFF INH IH SCH ×2 (07:43→20:22)
[2019-01-16] MEDS: Cholecalciferol (D-3) 1,000 UNIT TABLET PO SCH (08:50)
[2019-01-16] MEDS: metroNIDAZOLE 500 MG TABLET PO SCH ×3 (08:51→21:04)
[2019-01-16] MEDS: Furosemide 40 MG TABLET PO SCH (08:51)
[2019-01-16] MEDS: Aspirin Enteric Coated 81 MG Tablet PO SCH (08:51)
[2019-01-16] MEDS: cloNIDine HCl 0.1 MG TABLET PO SCH ×3 (08:51→21:04)
[2019-01-16] MEDS: Isosorbide MONOnitrate (24 HR) 30 MG TAB.ER.24H PO SCH (08:51)
[2019-01-16] MEDS: cefTRIAXone 2,000 MG in Water for inj. (sterile) 20 ML 20 ML IVP SCH (08:51)
[2019-01-16] MEDS: Gabapentin 100 MG CAPSULE PO SCH ×3 (08:51→21:04)
[2019-01-16] MEDS: Cyanocobalamin (B-12) 1,000 MCG TABLET PO SCH (08:51)
[2019-01-16] MEDS: Diltiazem CD (24hr) 120 MG CAPSULE PO SCH (08:51)
[2019-01-16] MEDS: *HR* Rivaroxaban 15 MG TABLET PO SCH (08:51)
[2019-01-16] MEDS: Insulin LISPRO 300 UNITS/3 ML VIAL SQ SCH ×7 (08:58→21:04)
[2019-01-16] MEDS: Insulin DETEMIR 100 UNIT/ML X5UNITS SQ SCH ×2 (08:58→21:04)
--- NOTE | 2019-01-16 10:35 | Podiatry Progress Note ---
Date of Encounter: 01/16/19 Time of Encounter: 10:00 - Assessment and Plan (1) Diabetic foot ulcer Current Visit: Yes Status: Acute POD #5 s.p I&D of left foot abscess. Healing well at this time. Moderate amount of edema observed likely dependent as patient has been sitting to side of bed with feet dangling PLAN: SHAUN completed yesterday - prelim show non compressible DP and PT bilaterally. Will monitor closely for signs of non healing or ischemia. Possible consider vascular consult to optimize Dressing removed at beside Flushed wound with saline, repacked with packing strip 4x4 kerlix and GLENNA wrap applied for compression Elevate to decrease dependent edema Surgical cultures and stain negative Patient currently on vanc rocephin and flagyl- ID on board OK to send on oral ATB per ID recommendations WBC 12.1 and trending down Wound care as ordered, packing strips, 4x4 kerlix and GLENNA- needs changed BID while inpatient related to bloody strikethrough drainage There is also a dry surgical wound to the right foot, apply dry dressing daily - wound is benign and non infectious in appearance Patient will need to follow up with in wound care center 1 week following discharge SW following for discharge planning Continue to monitor Call with any fevers chills n/v or fls. Will need to follow up in wound care center or podiatry office with or [employer] 1 week after discharge Qualifiers: Diabetic foot ulcer location: unspecified part of foot Diabetes mellitus type: other specified (including PIERCE) Laterality: unspecified laterality Non-pressure ulcer stage: unspecified non-pressure ulcer stage Qualified Code(s): E13.621 - Other specified diabetes mellitus with foot ulcer; L97.509 - Non-pressure chronic ulcer of other part of unspecified foot with unspecified severity (2) Foot abscess, left Current Visit: Yes Status: Acute Subjective Interval history: POD #5 s.p I&D of left foot abscess. Patient resting in bed on arrival. Resting comfortably. Denies pain. Dressing to LLE intact, slight bloody striethrough drainage noted. Patient denies any known fevers, chills, n/v fls, calf pain or sob. Patient pending rehab placement. Objective - Vital Signs Vital Signs: Vital Signs Temp Pulse Resp BP Pulse Ox 01/16/19 07:46 18 98 01/16/19 06:58 97.4 F L 65 16 142/70 96 01/16/19 03:49 97.5 F L 55 16 146/82 99 01/15/19 23:40 98.0 F 65 16 146/78 97 01/15/19 22:58 18 98 01/15/19 19:44 97.7 F 80 16 150/77 94 01/15/19 16:51 97.8 F 57 16 144/75 98 01/15/19 12:18 97.8 F 54 16 98/54 97 Intake and Output 01/15/19 01/16/19 01/16/19 23:59 07:59 15:59 Intake Total 880 / 1390 Output Total 300 / 900 1100 / 1100 Balance 580 / 490 -1100 / -1100 Intake: Oral 880 / 1120 Output: Urine 300 / 900 1100 / 1100 Other: Meal Dinner Percent of Meal Consumed 100% Weight 132.6 kg Blood Glucose* 257 281 Patient Weight 01/16/19 23:59 Weight 132.6 kg - Exam Exam: General Examination: CONSTITUTIONAL: Alert, oriented, in no acute distress, non-toxic. EXTREMITIES: CFT 3 seconds all toes. Edema +1 and pedal pulses non palpable. Toes warm. SKIN: Surgical incision noted to dorsal aspect of left foot. Sutures intact with surgically created opening. Scant bloody drainage noted. Mild surrounding edema, slight improvement in appearance since 01/14 exam. Minimal erythema or warmth. Resolving ecchynosis noted along distal aspect of foot. No odor. No ascending cellulitis. No lymphangitis. NEUROLOGIC:Loss of protective sensation. - Lab Result Diagrams: 01/16/19 01:51 01/16/19 01:51 Labs: Abnormal lab results WBC 12.1 K/mcL (4.3-11.1) H 01/16/19 01:51 Hgb 11.3 g/dL (12.9-16.9) L 01/16/19 01:51 Hct 35.7 % (37.5-50.1) L 01/15/19 02:19 MCV 77.7 fL (83.0-100.0) L 01/16/19 01:51 MCH 23.3 pg (28.0-33.3) L 01/16/19 01:51 MCHC 30.1 g/dL (31.6-35.5) L 01/16/19 01:51 RDW 17.0 % (11.5-14.5) H 01/16/19 01:51 9.0 K/mcL (1.6-8.9) H 01/16/19 01:51 ESR 58 mm/hr (0-10) H 01/09/19 06:06 Sodium 131 mEq/L (136-145) L 01/16/19 01:51 Potassium 5.3 mEq/L (3.5-5.1) H 01/13/19 02:11 Chloride 96 mEq/L (98-107) L 01/13/19 02:11 Carbon Dioxide 20 mEq/L (23-29) L 01/13/19 02:11 BUN 75 mg/dL (6-20) H 01/16/19 01:51 2.16 mg/dL (0.70-1.30) H 01/16/19 01:51 Est GFR ( Amer) 39 (> 60) L 01/16/19 01:51 Est GFR (Non-Af Amer) 32 (> 60) L 01/16/19 01:51 35 (6-26) H 01/16/19 01:51 Glucose 262 mg/dL (70-105) H 01/16/19 01:51 POC Glucose 257 mg/dL (70-99) H 01/15/19 20:08 9.8 % (-5.6) H 01/08/19 05:24 303 (280-300) H 01/16/19 01:51 0.04 ng/mL (< 0.04) H* 01/08/19 05:24 13 mg/L (Less than 10) H 01/10/19 02:02 B-Natriuretic Peptide 288 pg/mL (Less than 100) H 01/07/19 14:45 Vancomycin Trough 17 mcg/mL (5-10) H 01/16/19 08:55 Microbiology, Last 48 Hours 01/11/19 13:12 Anaerobic Culture - Final Left Foot No anaerobes were recovered. 01/11/19 13:12 Wound Culture - Final Left Foot No pathogens isolated. Consult Discharge Plan - Plan Referrals: Evin Cantu DPM [Partnered Physician] - 01/22/19 9:15 am Marissa Pitts CNP [Primary Care Provider] - 01/16/19 12:15 pm
--- NOTE | 2019-01-16 10:41 | Infectious Disease Progress No ---
ID Progress Note Date of Encounter: 01/16/19 Time of Encounter: 09:40 - Subjective Subjective: Patient seen and examined. No acute events noted overnight. Patient denies pain at surgery site currently, but states he had some this morning. Denies fevers, chills, rigors. Denies chest pain, shortness of breath, or cough. Denies vomiting or diarrhea. Reports some intermittent nausea. States he feels constipated. Reports last bowel movement was two days ago. Denies abdominal pain or urinary complaints. Denies oral thrush or skin rashes. - Objective CBC & Chem 7: 01/16/19 01:51 01/16/19 01:51 - Exam Vitals: Temp Pulse Resp BP Pulse Ox 97.4 F L 65 18 142/70 98 01/16/19 06:58 01/16/19 06:58 01/16/19 07:46 01/16/19 06:58 01/16/19 07:46 Exam: Head: Atraumatic, normal inspection, normocephalic. Eye: EOMI, PERRLA, no scleral icterus noted. ENT: Mucous membranes moist. No odontogenic infection noted. Neck: Normal inspection, no meningismus. Respiratory: Fine expiratory wheezes noted throughout. No respiratory distress noted. Cardiovascular: Regular rate and rhythm, S1 and S2 audible. No murmurs, rubs, or gallops. GI: Soft, obese, normal bowel sounds. Extremities:No joint swelling or tenderness noted. Left foot dressing clean, dry, and intact. Ecchymosis noted to the proximal aspects of toes #1, 2, and 3. Neurological: Alert, oriented 3, no focal deficits. Psychiatric: normal affect, normal mood. Skin: Dry, intact, warm. Normal color. No rashes. - Assessment and Plan (1) Leukocytosis Status: Acute Likely reactive secondary to surgery. Improved. Qualifiers: Leukocytosis type: unspecified Qualified Code(s): D72.829 - Elevated white blood cell count, unspecified SNOMED Code(s): 658300702, 738054161 (2) Foot abscess, left Status: Acute Location: Left foot. Causative organism: Unclear. X-ray of the left foot showed findings concerning for soft tissue mass overlying the medial fifth MTP joint. MRI of the left foot showed findings concerning for bland edema versus cellulitis as well as an abscess, but no osteomyelitis. Podiatry consult. Status post I&D of the left foot abscess 01/11/19. Intraoperative cultures are negative. Anaerobic cultures no growth. Gram stain is negative. Currently on Rocephin, Flagyl, and vancomycin. SNOMED Code(s): 97350627953143118 (3) Acute exacerbation of CHF (congestive heart failure) Status: Acute Chest x-ray on admission showed findings consistent with a small left pleural effusion, pulmonary vascular congestion, and cardiomegaly. BNP elevated at 283. TTE showed an EF of 55%. Further workup and management per the primary team. Qualifiers: Heart failure type: diastolic Qualified Code(s): I50.33 - Acute on chronic diastolic (congestive) heart failure SNOMED Code(s): 354253686, 25407943007499 (4) Ulcer of left foot Status: Acute Likely secondary to swelling of the bilateral lower extremities. Podiatry consult. Qualifiers: Non-pressure ulcer stage: limited to breakdown of skin Qualified Code(s): L97.521 - Non-pressure chronic ulcer of other part of left foot limited to breakdown of skin SNOMED Code(s): 56372450 (5) Morbid obesity Status: Chronic SNOMED Code(s): 798212042 (6) CAD (coronary artery disease) Status: Chronic Qualifiers: Coronary Disease-Associated Artery/Lesion type: [place] artery [place] vs. transplanted heart: [place] heart Associated angina: without angina Qualified Code(s): I25.10 - Atherosclerotic heart disease of [place] coronary artery without angina pectoris SNOMED Code(s): 19402378 (7) Chronic kidney disease, stage III (moderate) Status: Chronic Monitor renal function closely and does just medications. Avoid nephrotoxins as able. Nephrology consulted and following. SNOMED Code(s): 135884807 (8) Type 2 diabetes mellitus Status: Chronic Uncontrolled. Hemoglobin A1c 9.8%. Blood sugars continue to run high. Recommend aggressive glucose management and control to promote wound healing and prevent reinfection. Management per the primary team. 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 CHF and diabetes management per the primary team. Wound care and activity per the podiatry team. Continue vancomycin IV. Pharmacy to dose. Goal trough approximately 15. Continue Rocephin, but increase to 2 g IV daily. Continue Flagyl 500 mg 3 times a day PO. Duration of treatment depends on the clinical picture. Can consider doxycycline plus Augmentin on discharge to complete a 14 day post-op course. Treat through 01/25/19. Monitor renal function for drug toxicity and dose adjust antibiotics. Consult Discharge Plan - Plan Instructions: Doxycycline (By mouth), Amoxicillin/Clavulanate Potassium (By mouth), Heart Failure (DC), Cellulitis (DC), Diabetic Foot Care (DC), Diabetes Mellitus Type 2 in Adults (DC) Referrals: Evin Cantu DPM [Partnered Physician] - 01/22/19 9:15 am Alonso Stone MD [Partnered Physician] - 01/23/19 (PDA and nonhealing foot ulcer) Marissa Pitts CNP [Primary Care Provider] - 01/16/19 12:15 pm Prescriptions: Amoxicillin/Clavulanate [Augmentin] 875 mg PO BIDWM 9 Days #18 tablet Doxycycline Monohydrate 100 mg PO BID 9 Days #18 tablet Gabapentin [Neurontin] 100 mg PO TID #90 capsule - Attending Attestation I have personally performed a face to face evaluation on this patient. I have reviewed and agree with the care plan. History and Exam by me shows: Assessment and plan: 1.Left foot abscess causative organism unclear MRI of the left foot showed findings concerning for plan edema versus cellulitis as well as an abscess but no 2.osteomyelitis. 3.Status post I&D 2018 4.Lesion on the left lower extremity about 4 cm in diameter with a black eschar we will watch closely 5.Morbid obesity BMI 43 6.CAD Recommendations: Continue vancomycin IV. Pharmacy to dose. Goal trough approximately 15. Continue Rocephin, but increase to 2 g IV daily. Continue Flagyl 500 mg 3 times a day, but transitioned to by mouth. Duration of treatment depends on the clinical picture. Can consider doxycycline plus Augmentin on discharge to complete a 14 day post-op course. Treat through 01/25/19. d/w Food Service Order Clerk Monitor renal function for drug toxicity and dose adjust antibiotics.
[2019-01-16] MEDS ORDERED: Sennosides 8.6 MG TABLET PO PRN (12:38)
--- NOTE | 2019-01-16 13:40 | Discharge Summary ---
- NOTES TO OUTPATIENT PROVIDER Notes to Outpatient Provider: Patient was admitted on 01/07 for shortness of breath and diabetic foot infection. Railroad Construction Director was consult he had I&D of left foot abscess, ID was consulted as well, nicky is diischarged on oral augmentin and DOxycycline until 01/15. Patient is going to follow up with kacey hook as OP for PAD. Date of Encounter: 01/16/19 Time of Encounter: 13:32 Hospital course: Mr. Mercedes is a 53 year old male with pmh of diastolic CHF, atrial fibrillation, diabetic foot ulcers s/p toe amputation presenting with complaints of shortness of breath and lower extremity swelling for weeks. Patient says he takes lasix at home but lasix has not been helping. He initially began to have shortness of breath which progressed to swelling of his lower extremities. He is normally able to walk 4 blocks, but says he gets short of breath at rest now. He has pitting edema from the bilateral lower extremities to the abdomen. He complains of a vague cough, but denies any wheezing . He also has some blisters in his legs bilaterally In the ER, a chest xray was done showing pulmonary vascular congestion. he was started on lasix and he is being admitted for further management (1) Acute exacerbation of chronic diastolic CHF (congestive heart failure) Current Visit: Yes Status: Acute Acute exacerbation of diastolic congestive heart failure: Patient treated with Lasix intravenously and metolazone initially. Has had good response to this regimen. He has -15 L fluid balance during this hospitalization. Now doing well with single daily dosing of 40 mg Lasix. Avoiding higher doses due to his renal function and hyponatremia (2) Morbid obesity Current Visit: Yes Status: Chronic (3) Type 2 diabetes mellitus, contine home meds Current Visit: Yes Status: Chronic (4) Hypertension Current Visit: Yes Status: Chronic (5) DVT prophylaxis Current Visit: Yes Status: Acute (6) Atrial fibrillation Rate controlled. On Cardizem. Continue Xarelto for anticoagulation. Current Visit: Yes Status: Acute (7) Bilateral lower leg cellulitis Current Visit: Yes Status: Acute (8) Ulcer of left footUlcer and abscess on left foot dorsum:s/p I &D on 01/11, Surgical culture showed no growth. Infectious disease recommends that the patient be discharged on oral antibiotics when medically stable. I discussed with Hellen, she is ok to discharge and follow up with Vascular surgeon as OP. Current Visit: Yes Status: Acute DVT Prophylaxis: . Continue fluid restriction. (9) Chronic kidney disease stage III: Creatinine stable. (10) Hyponatremia: Sodium 131 today. We will monitor continue fluid restriction Discharge discussed with: patient Time spent discussing smoking cessation with patient: more than 10 minutes - Time Spent with Patient Total time spent providing and/or coordinating discharge services: Time spent: Greater than 30 minutes - Discharge Medications Prescriptions: New Amoxicillin/Clavulanate [Augmentin] 875 mg PO BIDWM 9 Days #18 tablet Doxycycline Monohydrate 100 mg PO BID 9 Days #18 tablet Continued Diltiazem CD (24hr) [Cardizem CD] 120 mg PO DAILY #30 tab Isosorbide MONOnitrate (24 HR) [Imdur] 30 mg PO DAILY #30 tab Cetirizine HCl [Zyrtec] 10 mg PO DAILY cloNIDine HCl [CloNIDine HCl] 0.1 mg PO TID Metoprolol [Lopressor] 25 mg PO BID Budesonide/Formoterol 160/4.5 [Symbicort 160/4.5] 2 puff IH BID Albuterol Sulfate [Ventolin Hfa] 2 puff IH Q4H PRN PRN Reason: Shortness Of Breath Atorvastatin [Lipitor] 40 mg PO HS Aspirin [Lo-Dose Aspirin EC] 81 mg PO QAM Rivaroxaban [Xarelto] 20 mg PO DAILY Insulin Human Regular [HumuLIN R] 80 unit SQ BID Lisinopril [Zestril] 10 mg PO DAILY Fluticasone/Vilanterol [Breo Ellipta 100-25 Mcg INH] 1 each IH DAILY Ascorbic Acid [Vitamin C] 500 mg PO DAILY #30 capsule Cyanocobalamin (B-12) [Vitamin B12] 1,000 mcg PO DAILY #30 tablet Furosemide [Lasix] 40 mg PO DAILY #30 tablet Cholecalciferol (D-3) [Vitamin D] 2,000 unit PO DAILY #60 tablet Ferrous Sulfate 325 mg PO MOWEFR Home Medications: Aspirin [Lo-Dose Aspirin EC] 81 mg PO QAM 03/11/16 [History] Atorvastatin [Lipitor] 40 mg PO HS 03/11/16 [History] Diltiazem CD (24hr) [Cardizem CD] 120 mg PO DAILY #30 tab 03/07/17 [Rx] Isosorbide MONOnitrate (24 HR) [Imdur] 30 mg PO DAILY #30 tab 03/07/17 [Rx] Rivaroxaban [Xarelto] 20 mg PO DAILY 04/22/17 [History] Cetirizine HCl [Zyrtec] 10 mg PO DAILY 05/08/17 [History] cloNIDine HCl [CloNIDine HCl] 0.1 mg PO TID 12/16/17 [History] Metoprolol [Lopressor] 25 mg PO BID 12/22/17 [History] Insulin Human Regular [HumuLIN R] 80 unit SQ BID 08/25/18 [History] Fluticasone/Vilanterol [Breo Ellipta 100-25 Mcg INH] 1 each IH DAILY 11/05/18 [History] Lisinopril [Zestril] 10 mg PO DAILY 11/05/18 [History] Ascorbic Acid [Vitamin C] 500 mg PO DAILY #30 capsule 11/07/18 [Rx] Cholecalciferol (D-3) [Vitamin D] 2,000 unit PO DAILY #60 tablet 11/07/18 [Rx] Cyanocobalamin (B-12) [Vitamin B12] 1,000 mcg PO DAILY #30 tablet 11/07/18 [Rx] Furosemide [Lasix] 40 mg PO DAILY #30 tablet 11/07/18 [Rx] Ferrous Sulfate 325 mg PO MOWEFR 12/23/18 [History] Albuterol Sulfate [Ventolin Hfa] 2 puff IH Q4H PRN 01/07/19 [History] Budesonide/Formoterol 160/4.5 [Symbicort 160/4.5] 2 puff IH BID 01/07/19 [History] Amoxicillin/Clavulanate [Augmentin] 875 mg PO BIDWM 9 Days #18 tablet 01/16/19 [Rx] Doxycycline Monohydrate 100 mg PO BID 9 Days #18 tablet 01/16/19 [Rx] Allergies/Adverse Reactions: Allergy/AdvReac Type Severity Reaction Status Date / Time No Known Allergies Allergy Verified 09/11/18 14:14 Date of admission: 01/09/19 17:39 Primary care physician: Marissa Pitts Consults: 01/08/19 09:21 Consult to Nurse Navigator [CONS] Routine Comment: CHF 01/09/19 09:46 Consult to Podiatry [CONS] Routine Consulting Provider: [facility] Reason for Consult: Left foot cellulitis/ with possible developing abscess Time Notified: 09:47 Call Completed: Yes 01/13/19 14:54 Consult to Infectious Diseases [CONS] Routine Consulting Provider: Infectious Disease [facility] Reason for Consult: Left foot cellulitis and abscess Call Completed: No 01/14/19 15:54 Consult to Treating Machine Operator [CONS] Routine Reason for SW Consult: Discharge planning HHC vs ECF Anticipated date of discharge: 01/16/19 - Constitutional Vitals: Temp Pulse Resp BP Pulse Ox 98.0 F 67 16 143/74 98 01/16/19 11:03 01/16/19 11:03 01/16/19 11:03 01/16/19 11:03 01/16/19 11:03 General appearance: Present: A&O X 3, morbidly obese Exam: General: Patient is alert, no acute distress, oriented x 3 Respiratory: Good respiratory effort. Normal breath sounds. No wheezing or crackles. Cardiovascular: Regular rate and rhythm. s1 and s2 normal No clicks, rubs, gallops, or murmurs. Pedal edema significantly improved. Abdomen: Abdomen is soft, nontender. Bowel sounds are present Musculoskeletal: Spontaneously moving all extremities. Left foot bandaged. Skin: warm, dry, intact. Neuro: Alert oriented x 3 normal cranial nerves, no focal deficits - Patient Status Disposition: Transfer SNF Condition: Fair Functional capacity at discharge: uses cane/walker Overall status at discharge: patient is not back to baseline - Discharge Instructions Follow Up With: Evin Cantu DPM [Partnered Physician] - 01/22/19 9:15 am Marissa Pitts CNP [Primary Care Provider] - 01/16/19 12:15 pm Alonso Stone MD [Partnered Physician] - 01/23/19 (PDA and nonhealing foot ulcer) - Diet and Activity Diet: diabetic diet
--- NOTE | 2019-01-16 14:14 | Physician Discharge Referral ---
ExtendedCare Referral Info Transfer To: SNF Provider in Charge after Transfer: PCP Institutional Level of Care: Skilled - Transfer Medications Prescriptions: Amoxicillin/Clavulanate [Augmentin] 875 mg PO BIDWM 9 Days #18 tablet Doxycycline Monohydrate 100 mg PO BID 9 Days #18 tablet Home Medications: Aspirin [Lo-Dose Aspirin EC] 81 mg PO QAM 03/11/16 [History] Atorvastatin [Lipitor] 40 mg PO HS 03/11/16 [History] Diltiazem CD (24hr) [Cardizem CD] 120 mg PO DAILY #30 tab 03/07/17 [Rx] Isosorbide MONOnitrate (24 HR) [Imdur] 30 mg PO DAILY #30 tab 03/07/17 [Rx] Rivaroxaban [Xarelto] 20 mg PO DAILY 04/22/17 [History] Cetirizine HCl [Zyrtec] 10 mg PO DAILY 05/08/17 [History] cloNIDine HCl [CloNIDine HCl] 0.1 mg PO TID 12/16/17 [History] Metoprolol [Lopressor] 25 mg PO BID 12/22/17 [History] Insulin Human Regular [HumuLIN R] 80 unit SQ BID 08/25/18 [History] Fluticasone/Vilanterol [Breo Ellipta 100-25 Mcg INH] 1 each IH DAILY 11/05/18 [History] Lisinopril [Zestril] 10 mg PO DAILY 11/05/18 [History] Ascorbic Acid [Vitamin C] 500 mg PO DAILY #30 capsule 11/07/18 [Rx] Cholecalciferol (D-3) [Vitamin D] 2,000 unit PO DAILY #60 tablet 11/07/18 [Rx] Cyanocobalamin (B-12) [Vitamin B12] 1,000 mcg PO DAILY #30 tablet 11/07/18 [Rx] Furosemide [Lasix] 40 mg PO DAILY #30 tablet 11/07/18 [Rx] Ferrous Sulfate 325 mg PO MOWEFR 12/23/18 [History] Albuterol Sulfate [Ventolin Hfa] 2 puff IH Q4H PRN 01/07/19 [History] Budesonide/Formoterol 160/4.5 [Symbicort 160/4.5] 2 puff IH BID 01/07/19 [History] Amoxicillin/Clavulanate [Augmentin] 875 mg PO BIDWM 9 Days #18 tablet 01/16/19 [Rx] Doxycycline Monohydrate 100 mg PO BID 9 Days #18 tablet 01/16/19 [Rx] Allergies/Adverse Reactions: Allergy/AdvReac Type Severity Reaction Status Date / Time No Known Allergies Allergy Verified 09/11/18 14:14 - Respiratory Orders Smoking Cessation: Smoking cessation has been advised. For more information, call the [place] Tobacco Quit Line at 3-395-IBNE-NOW. CERTIFICATION: I certify that the transfer of the above named patient to an Extended Care Facility is necessary for the continuing treatment of the diagnosis listed. The above information is true and accurate reflection of patient's current condition. Confidential - Redisclosure prohibited without a patient's written consent.
[2019-01-17] MEDS ORDERED: Ondansetron 4 MG/2 ML VIAL IVP PRN (03:34)
[2019-01-17] MEDS: Budesonide/Formoterol 160/4.5 1 PUFF INH IH SCH (07:22)
[2019-01-17] MEDS: Cholecalciferol (D-3) 1,000 UNIT TABLET PO SCH (09:39)
[2019-01-17] MEDS: Furosemide 40 MG TABLET PO SCH (09:39)
[2019-01-17] MEDS: Cyanocobalamin (B-12) 1,000 MCG TABLET PO SCH (09:39)
[2019-01-17] MEDS: Isosorbide MONOnitrate (24 HR) 30 MG TAB.ER.24H PO SCH (09:39)
[2019-01-17] MEDS: metroNIDAZOLE 500 MG TABLET PO SCH (09:39)
[2019-01-17] MEDS: Gabapentin 100 MG CAPSULE PO SCH (09:39)
[2019-01-17] MEDS: *HR* Rivaroxaban 15 MG TABLET PO SCH (09:39)
[2019-01-17] MEDS: cloNIDine HCl 0.1 MG TABLET PO SCH (09:39)
[2019-01-17] MEDS: Diltiazem CD (24hr) 120 MG CAPSULE PO SCH (09:39)
[2019-01-17] MEDS: Aspirin Enteric Coated 81 MG Tablet PO SCH (09:39)
[2019-01-17] MEDS: Insulin LISPRO 300 UNITS/3 ML VIAL SQ SCH ×4 (09:40→13:05)
[2019-01-17] MEDS: cefTRIAXone 2,000 MG in Water for inj. (sterile) 20 ML 20 ML IVP SCH (09:40)
[2019-01-17] MEDS: Insulin DETEMIR 100 UNIT/ML X5UNITS SQ SCH (09:47)
--- NOTE | 2019-01-17 11:07 | Infectious Disease Progress No ---
ID Progress Note Date of Encounter: 01/17/19 Time of Encounter: 10:40 - Subjective Subjective: Patient seen and examined. No acute events noted overnight. Patient denies pain at surgery site. Denies fevers, chills, rigors. Denies chest pain, shortness of breath, or cough. Denies vomiting or diarrhea. Reports some intermittent nausea. States he had a BM this morning. Denies abdominal pain or urinary complaints. Denies oral thrush or skin rashes. - Objective CBC & Chem 7: 01/16/19 01:51 01/16/19 01:51 - Exam Vitals: Temp Pulse Resp BP Pulse Ox 97.6 F 60 16 129/62 99 01/17/19 07:16 01/17/19 07:16 01/17/19 07:23 01/17/19 07:16 01/17/19 07:23 Exam: Head: Atraumatic, normal inspection, normocephalic. Eye: EOMI, PERRLA, no scleral icterus noted. ENT: Mucous membranes moist. No odontogenic infection noted. Neck: Normal inspection, no meningismus. Respiratory: Fine expiratory wheezes noted throughout. No respiratory distress noted. Cardiovascular: Regular rate and rhythm, S1 and S2 audible. No murmurs, rubs, or gallops. GI: Soft, obese, normal bowel sounds. Extremities:No joint swelling or tenderness noted. Left foot dressing clean, dry, and intact. Ecchymosis noted to the proximal aspects of toes #1, 2, and 3. Neurological: Alert, oriented 3, no focal deficits. Psychiatric: normal affect, normal mood. Skin: Dry, intact, warm. Normal color. No rashes. - Assessment and Plan (1) Leukocytosis Status: Acute Likely reactive secondary to surgery. Improved. No labs this morning. Qualifiers: Leukocytosis type: unspecified Qualified Code(s): D72.829 - Elevated white blood cell count, unspecified SNOMED Code(s): 543173472, 924788427 (2) Foot abscess, left Status: Acute Location: Left foot. Causative organism: Unclear. X-ray of the left foot showed findings concerning for soft tissue mass overlying the medial fifth MTP joint. MRI of the left foot showed findings concerning for bland edema versus cellulitis as well as an abscess, but no osteomyelitis. Podiatry consult. Status post I&D of the left foot abscess 01/11/19. Intraop erative cultures are negative. Anaerobic cultures negative. Gram stain is negative. Currently on Rocephin, Flagyl, and vancomycin. SNOMED Code(s): 41130727123624366 (3) Acute exacerbation of CHF (congestive heart failure) Status: Acute Chest x-ray on admission showed findings consistent with a small left pleural effusion, pulmonary vascular congestion, and cardiomegaly. BNP elevated at 283. TTE showed an EF of 55%. Further workup and management per the primary team. Qualifiers: Heart failure type: diastolic Qualified Code(s): I50.33 - Acute on chronic diastolic (congestive) heart failure SNOMED Code(s): 443614895, 33739391784228 (4) Ulcer of left foot Status: Acute Likely secondary to swelling of the bilateral lower extremities. Podiatry consult. Qualifiers: Non-pressure ulcer stage: limited to breakdown of skin Qualified Code(s): L97.521 - Non-pressure chronic ulcer of other part of left foot limited to breakdown of skin SNOMED Code(s): 87599980 (5) Morbid obesity Status: Chronic SNOMED Code(s): 023592441 (6) CAD (coronary artery disease) Status: Chronic Qualifiers: Coronary Disease-Associated Artery/Lesion type: [place] artery [place] vs. transplanted heart: [place] heart Associated angina: without angina Qualified Code(s): I25.10 - Atherosclerotic heart disease of [place] coronary artery without angina pectoris SNOMED Code(s): 13074356 (7) Chronic kidney disease, stage III (moderate) Status: Chronic Monitor renal function closely and does just medications. Avoid nephrotoxins as able. Nephrology consulted and following. SNOMED Code(s): 748553613 (8) Type 2 diabetes mellitus Status: Chronic Uncontrolled. Hemoglobin A1c 9.8%. Blood sugars continue to run high. Recommend aggressive glucose management and control to promote wound healing and prevent reinfection. Management per the primary team. 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 CHF and diabetes management per the primary team. Wound care and activity per the podiatry team. Continue vancomycin IV. Pharmacy to dose. Goal trough approximately 15. Continue Rocephin 2 grams IV daily. Continue Flagyl 500 mg 3 times a day PO. Duration of treatment depends on the clinical picture. Can consider doxycycline plus Augmentin on discharge to complete a 14 day post-op course. Treat through 01/25/19. Monitor renal function for drug toxicity and dose adjust antibiotics. Consult Discharge Plan - Plan Instructions: Doxycycline (By mouth), Amoxicillin/Clavulanate Potassium (By mouth), Heart Failure (DC), Cellulitis (DC), Diabetic Foot Care (DC), Diabetes Mellitus Type 2 in Adults (DC) Referrals: Evin Cantu DPM [Partnered Physician] - 01/22/19 9:15 am Alonso Stone MD [Partnered Physician] - 01/23/19 (PDA and nonhealing foot ulcer) Marissa Pitts CNP [Primary Care Provider] - 01/16/19 12:15 pm Prescriptions: Amoxicillin/Clavulanate [Augmentin] 875 mg PO BIDWM 9 Days #18 tablet Doxycycline Monohydrate 100 mg PO BID 9 Days #18 tablet Gabapentin [Neurontin] 100 mg PO TID #90 capsule - Attending Attestation I have personally performed a face to face evaluation on this patient. I have reviewed and agree with the care plan. History and Exam by me shows: Assessment and plan: 1.Left foot abscess causative organism unclear MRI of the left foot showed findings concerning for plan edema versus cellulitis as well as an abscess but no 2.osteomyelitis. 3.Status post I&D 2018 4.Lesion on the left lower extremity about 4 cm in diameter with a black eschar we will watch closely 5.Morbid obesity BMI 43 6.CAD Recommendations: Continue vancomycin IV. Pharmacy to dose. Goal trough approximately 15. Continue Rocephin, but increase to 2 g IV daily. Continue Flagyl 500 mg 3 times a day, but transitioned to by mouth. Duration of treatment depends on the clinical picture. Can consider doxycycline plus Augmentin on discharge to complete a 14 day post-op course. Treat through 01/25/19. d/w [employer] Monitor renal function for drug toxicity and dose adjust antibiotics.
[2019-01-17 11:55] VITALS: BP 127/78
--- NOTE | 2019-01-17 12:33 | Podiatry Progress Note ---
Date of Encounter: 01/17/19 Time of Encounter: 12:00 - Assessment and Plan (1) Diabetic foot ulcer Current Visit: Yes Status: Acute POD #6 s.p I&D of left foot abscess. Healing well at this time. Moderate amount of edema observed likely dependent as patient has been sitting to side of bed with feet dangling PLAN: Dressing removed at beside Flushed wound with saline, repacked with packing strip 4x4 kerlix and GLENNA wrap applied for compression Elevate to decrease dependent edema Surgical cultures and stain negative Patient currently on vanc rocephin and flagyl- ID on board OK to send on oral ATB per ID recommendations Recommend Augmentin and Doxy PO at discharge WBC 12.1 and trending down Wound care as ordered, packing strips, 4x4 kerlix and GLENNA- needs changed BID while inpatient related to bloody strikethrough drainage There is also a dry surgical wound to the right foot, apply dry dressing daily - wound is benign and non infectious in appearance Patient will need to follow up with in wound care center 1 week following discharge SW following for discharge planning States is he leaving today Continue to monitor Call with any fevers chills n/v or fls. Will need to follow up in wound care center or podiatry office with or ENTRY SPECIALIST 1 week after discharge Per vascular studies recommend patient follow up with vascular for evaluation on outpatient basis. Qualifiers: Diabetic foot ulcer location: unspecified part of foot Diabetes mellitus type: other specified (including PIERCE) Laterality: unspecified laterality N on-pressure ulcer stage: unspecified non-pressure ulcer stage Qualified C ode(s): E13.621 - Other specified diabetes mellitus with foot ulcer; L97.509 - Non-pressure chronic ulcer of other part of unspecified foot with unspecified severity (2) Foot abscess, left Current Visit: Yes Status: Acute Subjective Interval history: POD #6 s.p I&D of left foot abscess. Patient resting in bed on arrival. Resting comfortably. Denies pain. Dressing to LLE intact, slight bloody strike through drainage noted. Patient denies any known fevers, chills, n/v fls, calf pain or sob. Patient pending rehab placement. Objective - Vital Signs Vital Signs: Vital Signs Temp Pulse Resp BP Pulse Ox 01/17/19 11:54 98.4 F 66 16 127/78 97 06/20/19 07:23 16 99 01/17/19 07:16 97.6 F 60 17 129/62 98 01/17/19 03:35 98.0 F 48 16 150/72 97 01/16/19 22:46 97.8 F 65 17 126/57 98 01/16/19 20:23 20 100 01/16/19 18:28 97.7 F 57 16 158/74 99 01/16/19 16:38 97.5 F L 49 16 123/58 97 Intake and Output 01/16/19 01/17/19 01/17/19 23:59 07:59 15:59 Intake Total 800 / 2130 Output Total 350 / 1450 400 / 900 500 / 900 Balance 450 / 680 -400 / -900 -500 / -900 Intake: Oral 800 / 1860 Output: Urine 350 / 1450 400 / 900 500 / 900 Other: Meal water oitcher Percent of Meal Consumed 0% Stool Size Small Large Stool Consistency formed formed Stool Color Brown # Bowel Movements 1 1 Weight 132 kg Blood Glucose* 277 189 257 Patient Weight 01/17/19 23:59 Weight 132 kg - Exam Exam: General Examination: CONSTITUTIONAL: Alert, oriented, in no acute distress, non-toxic. EXTREMITIES: CFT 3 seconds all toes. Edema +1 and pedal pulses non palpable. Toes warm. SKIN: Surgical incision noted to dorsal aspect of left foot. Sutures intact with surgically created opening. Scant bloody drainage noted. Mild surrounding edema, slight improvement in appearance since 01/14 exam. Minimal erythema or warmth. Resolving ecchymosis noted along distal aspect of foot. No odor. No ascending cellulitis. No lymphangitis. NEUROLOGIC:Loss of protective sensation. - Lab Result Diagrams: 01/16/19 01:51 01/16/19 01:51 Labs: Abnormal lab results WBC 12.1 K/mcL (4.3-11.1) H 01/16/19 01:51 Hgb 11.3 g/dL (12.9-16.9) L 01/16/19 01:51 Hct 35.7 % (37.5-50.1) L 01/15/19 02:19 MCV 77.7 fL (83.0-100.0) L 01/16/19 01:51 MCH 23.3 pg (28.0-33.3) L 01/16/19 01:51 MCHC 30.1 g/dL (31.6-35.5) L 01/16/19 01:51 RDW 17.0 % (11.5-14.5) H 01/16/19 01:51 9.0 K/mcL (1.6-8.9) H 01/16/19 01:51 ESR 58 mm/hr (0-10) H 01/09/19 06:06 Sodium 131 mEq/L (136-145) L 01/16/19 01:51 Potassium 5.3 mEq/L (3.5-5.1) H 01/13/19 02:11 Chloride 96 mEq/L (98-107) L 01/13/19 02:11 Carbon Dioxide 20 mEq/L (23-29) L 01/13/19 02:11 BUN 75 mg/dL (6-20) H 01/16/19 01:51 2.16 mg/dL (0.70-1.30) H 01/16/19 01:51 Est GFR ( Amer) 39 (> 60) L 01/16/19 01:51 Est GFR (Non-Af Amer) 32 (> 60) L 01/16/19 01:51 35 (6-26) H 01/16/19 01:51 Glucose 262 mg/dL (70-105) H 01/16/19 01:51 POC Glucose 277 mg/dL (70-99) H 01/16/19 19:57 9.8 % (-5.6) H 01/08/19 05:24 303 (280-300) H 01/16/19 01:51 0.04 ng/mL (< 0.04) H* 01/08/19 05:24 13 mg/L (Less than 10) H 01/10/19 02:02 B-Natriuretic Peptide 288 pg/mL (Less than 100) H 01/07/19 14:45 Vancomycin Trough 17 mcg/mL (5-10) H 01/16/19 08:55 Microbiology, Last 48 Hours 01/11/19 13:12 Anaerobic Culture - Final Left Foot No anaerobes were recovered. Consult Discharge Plan - Plan Instructions: Doxycycline (By mouth), Amoxicillin/Clavulanate Potassium (By mouth), Heart Failure (DC), Cellulitis (DC), Diabetic Foot Care (DC), Diabetes Mellitus Type 2 in Adults (DC) Referrals: Evin Cantu DPM [Partnered Physician] - 01/22/19 9:15 am Alonso Stone MD [Partnered Physician] - 01/23/19 (PDA and nonhealing foot ulcer) Marissa Pitts CNP [Primary Care Provider] - 01/16/19 12:15 pm Prescriptions: Amoxicillin/Clavulanate [Augmentin] 875 mg PO BIDWM 9 Days #18 tablet Doxycycline Monohydrate 100 mg PO BID 9 Days #18 tablet Gabapentin [Neurontin] 100 mg PO TID #90 capsule
--- NOTE | 2019-01-17 13:50 | Event Note ---
Date of Encounter: 01/17/19 Time of Encounter: 13:40 Patient did not reveal last night due to transportation. The patient has no events overnight, PATIENT IS NOT TAKING PAIN MEDS, WILL CONITNUE NEURONTIN, SCRIPT IS GIVEN. Patient is discharged on stable condition
[2019-01-17] MEDS ORDERED: Aminoglycoside Consult 1 EACH MC ONE (13:52)
== END 2019-01-17 13:53 | DRG 364 ==
LOC: EMEROOARM 14:16 → 3BNU 14:16 → SUATTDRO 21:52 → 3BNU 22:23 → SUATTDRO 01-09 17:39
PROVIDERS: ADMIT Internal Medicine Nephrology; ATTEND Hospitalist

== ENCOUNTER 2019-09-30 14:01 | Inpatient (IN) ==
[2019-09-30 15:48] LABS: Basophils # 0.1 K/mcL (0.0-0.2); Basophils % 0.4 %; Eosinophils # 0.2 K/mcL (0.0-0.6); Eosinophils % 1.6 %; Hematocrit 34.9 % (37.5-50.1); Hemoglobin 10.4 g/dL (12.9-16.9); Lymphocytes # 1.3 K/mcL (0.6-4.6); Lymphocytes % 11.1 %; Mean Corpuscular HGB Conc 29.8 g/dL (31.6-35.5); Mean Corpuscular Hemoglobin 23.3 pg (28.0-33.3); Mean Corpuscular Volume 78.1 fL (83.0-100.0); Mean Platelet Volume 9.5 fL (9.4-12.4); Monocytes # 0.8 K/mcL (0.0-1.3); Monocytes % 6.7 %; Neutrophils # 8.8 K/mcL (1.6-8.9); Nucleated Red Blood Cells 0.2 /100 WBC (0); Platelet Count 369 K/mcL (140-400); Red Blood Count 4.47 M/mcL (4.19-5.50); Segmented Neutrophils % 78.2 %; White Blood Count 11.3 K/mcL (4.3-11.1)
[2019-09-30 16:02] LABS: Calcium 9.5 mg/dL (8.6-10.3); Potassium 4.7 mEq/L (3.5-5.1); Troponin I 0.03 ng/mL (< 0.04)
[2019-09-30] MEDS ORDERED: Furosemide 80 MG in 0.9 % Sodium Chloride 50 ML IVPB ONE (16:34)
[2019-09-30 16:53] LABS: Albumin 3.3 g/dL (3.5-5.7); Albumin/Globulin Ratio 0.9 (1.1-2.2); Bilirubin,Direct 0.1 mg/dL (0.0-0.2); Bilirubin,Indirect 0.3 mg/dL (0.0-1.0); Bilirubin,Total 0.4 mg/dL (0.3-1.0); Globulin 3.8 g/dL (2.4-3.5); INR 1.1; Prothrombin Time 12.8 Seconds (9.4-12.1); Total Protein 7.1 g/dL (6.4-8.9)
[2019-09-30] MEDS ORDERED: Ondansetron ODT 4 MG TAB.RAPDIS SL PRN (17:47)
[2019-09-30] MEDS ORDERED: Dextrose Gel 15 GM/37.5 ML TUBE PO PRN (18:15)
[2019-09-30] MEDS: Insulin LISPRO 300 UNITS/3 ML VIAL SQ SCH ×2 (20:22→20:24)
[2019-09-30] MEDS: lisinopriL 10 MG TABLET PO SCH (20:23)
[2019-09-30] MEDS: Aspirin Enteric Coated 81 MG Tablet PO SCH (20:23)
[2019-09-30] MEDS: DilTIAZem CD (24hr) 120 MG CAP.ER.24H PO SCH (20:23)
[2019-09-30] MEDS: Isosorbide MONOnitrate (24 HR) 30 MG TAB.ER.24H PO SCH (20:23)
[2019-09-30] MEDS: cloNIDine HCL 0.1 MG TABLET PO SCH (20:23)
[2019-09-30] MEDS: *HR* Rivaroxaban 10 MG TABLET PO SCH (20:25)
[2019-09-30] MEDS ORDERED: cloNIDine HCL 0.1 MG TABLET PO SCH (21:00)
[2019-09-30] MEDS ORDERED: Insulin DETEMIR 100 UNIT/ML X5UNITS SQ SCH (21:00)
[2019-09-30] MEDS ORDERED: Insulin Regular, Human 100 UNIT/ML SQ SCH (21:00)
[2019-09-30 21:26] LABS: Estimated Average Glucose 260 mg/dl
[2019-10-01 05:01] LABS: White Blood Count 12.5 K/mcL (4.3-11.1)
[2019-10-01 05:02] LABS: Basophils % 0.3 %; Eosinophils # 0.2 K/mcL (0.0-0.6); Eosinophils % 1.5 %; Hematocrit 35.2 % (37.5-50.1); Hemoglobin 10.8 g/dL (12.9-16.9); Immature Granulocytes % 1.2 % (0-4); Lymphocytes # 1.6 K/mcL (0.6-4.6); Lymphocytes % 12.7 %; Mean Corpuscular HGB Conc 30.7 g/dL (31.6-35.5); Mean Corpuscular Hemoglobin 23.7 pg (28.0-33.3); Mean Corpuscular Volume 77.4 fL (83.0-100.0); Mean Platelet Volume 8.9 fL (9.4-12.4); Monocytes # 0.9 K/mcL (0.0-1.3); Neutrophils # 9.7 K/mcL (1.6-8.9); Platelet Count 365 K/mcL (140-400); Red Blood Count 4.55 M/mcL (4.19-5.50); Red Cell Distribution Width 16.4 % (11.5-14.5); Segmented Neutrophils % 77.3 %
[2019-10-01 05:24] LABS: Calcium 9.4 mg/dL (8.6-10.3); Potassium 4.1 mEq/L (3.5-5.1)
[2019-10-01] MEDS: Insulin LISPRO 300 UNITS/3 ML VIAL SQ SCH ×4 (07:57→21:10)
[2019-10-01] MEDS: Isosorbide MONOnitrate (24 HR) 30 MG TAB.ER.24H PO SCH (09:42)
[2019-10-01] MEDS: DilTIAZem CD (24hr) 120 MG CAP.ER.24H PO SCH (09:42)
[2019-10-01] MEDS: Furosemide 40 MG/4 ML VIAL IVP SCH ×2 (09:42→21:09)
[2019-10-01] MEDS: cloNIDine HCL 0.1 MG TABLET PO SCH ×3 (09:42→21:08)
[2019-10-01] MEDS: lisinopriL 10 MG TABLET PO SCH (09:43)
[2019-10-01] MEDS: Insulin DETEMIR 100 UNIT/ML X5UNITS SQ SCH ×2 (09:43→21:09)
[2019-10-01] MEDS: Aspirin Enteric Coated 81 MG Tablet PO SCH (09:43)
[2019-10-01] MEDS: *HR* Rivaroxaban 10 MG TABLET PO SCH (17:38)
[2019-10-02 05:19] LABS: Hematocrit 33.4 % (37.5-50.1); Hemoglobin 10.2 g/dL (12.9-16.9); Mean Corpuscular HGB Conc 30.5 g/dL (31.6-35.5); Mean Corpuscular Volume 78.6 fL (83.0-100.0); Mean Platelet Volume 9.2 fL (9.4-12.4); Platelet Count 317 K/mcL (140-400); Red Blood Count 4.25 M/mcL (4.19-5.50); Red Cell Distribution Width 16.4 % (11.5-14.5); White Blood Count 10.5 K/mcL (4.3-11.1)
[2019-10-02 05:47] LABS: Calcium 9.1 mg/dL (8.6-10.3); Magnesium 2.1 mg/dL (1.6-2.6); Potassium 4.3 mEq/L (3.5-5.1)
[2019-10-02] MEDS: cloNIDine HCL 0.1 MG TABLET PO SCH ×3 (08:32→20:48)
[2019-10-02] MEDS: metOLazone 5 MG TABLET PO SCH (08:32)
[2019-10-02] MEDS: DilTIAZem CD (24hr) 120 MG CAP.ER.24H PO SCH (08:32)
[2019-10-02] MEDS: Insulin LISPRO 300 UNITS/3 ML VIAL SQ SCH ×4 (08:32→20:49)
[2019-10-02] MEDS: Isosorbide MONOnitrate (24 HR) 30 MG TAB.ER.24H PO SCH (08:32)
[2019-10-02] MEDS: Aspirin Enteric Coated 81 MG Tablet PO SCH (08:32)
[2019-10-02] MEDS: Insulin DETEMIR 100 UNIT/ML X5UNITS SQ SCH ×2 (08:33→20:49)
[2019-10-02] MEDS: Furosemide 40 MG/4 ML VIAL IVP SCH (08:34)
[2019-10-02] MEDS: hydrALAZINE 25 MG TABLET PO SCH ×2 (10:09→14:56)
[2019-10-02] MEDS: *HR* Rivaroxaban 15 MG TABLET PO SCH (17:30)
[2019-10-02] MEDS: Bumetanide 1 MG/4 ML VIAL IVP SCH (17:30)
[2019-10-02] MEDS: Budesonide/Formoterol 160/4.5 1 PUFF INH IH SCH (20:22)
[2019-10-03] MEDS: hydrALAZINE 25 MG TABLET PO SCH ×3 (00:09→14:39)
[2019-10-03 07:27] LABS: Magnesium 2.1 mg/dL (1.6-2.6); Phosphorous 4.9 mg/dL (2.7-4.5); Potassium 4.4 mEq/L (3.5-5.1)
[2019-10-03] MEDS: Budesonide/Formoterol 160/4.5 1 PUFF INH IH SCH ×2 (07:50→20:03)
[2019-10-03] MEDS: Isosorbide MONOnitrate (24 HR) 30 MG TAB.ER.24H PO SCH (09:04)
[2019-10-03] MEDS: metOLazone 5 MG TABLET PO SCH (09:04)
[2019-10-03] MEDS: cloNIDine HCL 0.1 MG TABLET PO SCH ×3 (09:04→21:43)
[2019-10-03] MEDS: Aspirin Enteric Coated 81 MG Tablet PO SCH (09:04)
[2019-10-03] MEDS: Insulin DETEMIR 100 UNIT/ML X5UNITS SQ SCH ×2 (09:04→21:43)
[2019-10-03] MEDS: DilTIAZem CD (24hr) 120 MG CAP.ER.24H PO SCH (09:04)
[2019-10-03] MEDS: Insulin LISPRO 300 UNITS/3 ML VIAL SQ SCH ×6 (09:05→21:43)
[2019-10-03] MEDS: Bumetanide 1 MG/4 ML VIAL IVP SCH ×2 (09:05→17:40)
[2019-10-03] MEDS: *HR* Rivaroxaban 15 MG TABLET PO SCH (17:40)
[2019-10-03] MEDS ORDERED: hydrALAZINE 25 MG TABLET PO SCH (21:00)
[2019-10-04 06:09] LABS: Calcium 9.7 mg/dL (8.6-10.3); Magnesium 2.3 mg/dL (1.6-2.6); Phosphorous 4.3 mg/dL (2.7-4.5); Potassium 4.2 mEq/L (3.5-5.1)
[2019-10-04] MEDS: Insulin LISPRO 300 UNITS/3 ML VIAL SQ SCH ×7 (07:49→20:26)
[2019-10-04] MEDS: Budesonide/Formoterol 160/4.5 1 PUFF INH IH SCH ×2 (08:11→20:27)
[2019-10-04] MEDS: metOLazone 5 MG TABLET PO SCH (09:25)
[2019-10-04] MEDS: Cholecalciferol (D-3) 1,000 UNIT (25MCG) TABLET PO SCH (09:25)
[2019-10-04] MEDS: DilTIAZem CD (24hr) 120 MG CAP.ER.24H PO SCH (09:25)
[2019-10-04] MEDS: Ascorbic Acid 500 MG TABLET PO SCH (09:25)
[2019-10-04] MEDS: Isosorbide MONOnitrate (24 HR) 30 MG TAB.ER.24H PO SCH (09:25)
[2019-10-04] MEDS: Aspirin Enteric Coated 81 MG Tablet PO SCH (09:25)
[2019-10-04] MEDS: hydrALAZINE 25 MG TABLET PO SCH ×2 (09:25→17:28)
[2019-10-04] MEDS: Cyanocobalamin (B-12) 1,000 MCG TABLET PO SCH (09:26)
[2019-10-04] MEDS: cloNIDine HCL 0.1 MG TABLET PO SCH ×3 (09:26→20:26)
[2019-10-04] MEDS: Bumetanide 1 MG/4 ML VIAL IVP SCH ×2 (09:26→17:29)
[2019-10-04] MEDS: Insulin DETEMIR 100 UNIT/ML X5UNITS SQ SCH ×2 (09:26→20:26)
[2019-10-04] MEDS: Loratadine 10 MG TABLET PO SCH (09:26)
[2019-10-04] MEDS: *HR* Rivaroxaban 15 MG TABLET PO SCH (17:28)
[2019-10-05] MEDS: hydrALAZINE 25 MG TABLET PO SCH ×3 (00:22→17:19)
[2019-10-05 07:18] LABS: Calcium 9.8 mg/dL (8.6-10.3); Magnesium 2.3 mg/dL (1.6-2.6); Phosphorous 4.5 mg/dL (2.7-4.5); Potassium 4.4 mEq/L (3.5-5.1)
[2019-10-05] MEDS: Budesonide/Formoterol 160/4.5 1 PUFF INH IH SCH ×2 (07:38→20:03)
[2019-10-05] MEDS: Cholecalciferol (D-3) 1,000 UNIT (25MCG) TABLET PO SCH (08:14)
[2019-10-05] MEDS: Insulin LISPRO 300 UNITS/3 ML VIAL SQ SCH ×7 (08:14→21:37)
[2019-10-05] MEDS: Aspirin Enteric Coated 81 MG Tablet PO SCH (08:15)
[2019-10-05] MEDS: Cyanocobalamin (B-12) 1,000 MCG TABLET PO SCH (08:15)
[2019-10-05] MEDS: DilTIAZem CD (24hr) 120 MG CAP.ER.24H PO SCH (08:15)
[2019-10-05] MEDS: cloNIDine HCL 0.1 MG TABLET PO SCH ×3 (08:15→21:36)
[2019-10-05] MEDS: Ascorbic Acid 500 MG TABLET PO SCH (08:15)
[2019-10-05] MEDS: metOLazone 5 MG TABLET PO SCH (08:15)
[2019-10-05] MEDS: Loratadine 10 MG TABLET PO SCH (08:15)
[2019-10-05] MEDS: Isosorbide MONOnitrate (24 HR) 30 MG TAB.ER.24H PO SCH (08:15)
[2019-10-05] MEDS: Bumetanide 1 MG/4 ML VIAL IVP SCH ×2 (08:16→17:19)
[2019-10-05] MEDS: Insulin DETEMIR 100 UNIT/ML X5UNITS SQ SCH ×2 (08:21→21:36)
[2019-10-05] MEDS: *HR* Rivaroxaban 15 MG TABLET PO SCH (17:19)
[2019-10-06] MEDS: hydrALAZINE 25 MG TABLET PO SCH ×2 (00:58→08:07)
[2019-10-06 06:39] VITALS: BP 138/81
[2019-10-06] MEDS: Budesonide/Formoterol 160/4.5 1 PUFF INH IH SCH (07:45)
[2019-10-06] MEDS: Cyanocobalamin (B-12) 1,000 MCG TABLET PO SCH (08:06)
[2019-10-06] MEDS: Cholecalciferol (D-3) 1,000 UNIT (25MCG) TABLET PO SCH (08:06)
[2019-10-06] MEDS: DilTIAZem CD (24hr) 120 MG CAP.ER.24H PO SCH (08:06)
[2019-10-06] MEDS: Isosorbide MONOnitrate (24 HR) 30 MG TAB.ER.24H PO SCH (08:06)
[2019-10-06] MEDS: Ascorbic Acid 500 MG TABLET PO SCH (08:07)
[2019-10-06] MEDS: metOLazone 5 MG TABLET PO SCH (08:07)
[2019-10-06] MEDS: Aspirin Enteric Coated 81 MG Tablet PO SCH (08:07)
[2019-10-06] MEDS: Loratadine 10 MG TABLET PO SCH (08:07)
[2019-10-06] MEDS: cloNIDine HCL 0.1 MG TABLET PO SCH (08:07)
[2019-10-06] MEDS: Bumetanide 1 MG/4 ML VIAL IVP SCH (08:09)
[2019-10-06] MEDS: Insulin DETEMIR 100 UNIT/ML X5UNITS SQ SCH (08:13)
[2019-10-06] MEDS: Insulin LISPRO 300 UNITS/3 ML VIAL SQ SCH ×2 (08:13)
[2019-10-06 08:14] LABS: Calcium 9.4 mg/dL (8.6-10.3); Magnesium 2.3 mg/dL (1.6-2.6); Phosphorous 4.1 mg/dL (2.7-4.5); Potassium 5.3 mEq/L (3.5-5.1)
== END 2019-10-06 10:56 | disposition home or self-care (01) ==
LOC: EMEROOARM 14:01 → 3ANU 14:01 → SUATTDRO 18:36 → 3ANU 18:58
PROVIDERS: ADMIT Internal Medicine; ATTEND Internal Medicine

== ENCOUNTER 2021-10-31 14:52 | Inpatient (IN) ==
[2021-10-31] MEDS ORDERED: Naloxone 0.4 MG/ML INJ IVP PRN (17:04)
[2021-10-31] MEDS ORDERED: Melatonin 3 MG TABLET PO PRN (17:04)
[2021-10-31] MEDS ORDERED: Acetaminophen 325 MG TABLET PO PRN (17:12)
[2021-10-31] MEDS ORDERED: Dextrose 4 GM Chewable Tablets PO PRN ×2 (17:49)
[2021-10-31] MEDS ORDERED: *HR* Dextrose 50 % in Water (Syg) 50 ML SYRINGE IVP PRN (17:49)
[2021-10-31] MEDS ORDERED: D5% in Water 1,000 ML IVC PRN (17:49)
[2021-10-31] MEDS ORDERED: Bumetanide 1 MG/4 ML VIAL IVP ONE (17:51)
[2021-10-31] MEDS ORDERED: Albuterol 2.5 MG/3 ML NEBULIZER IH PRN (17:51)
[2021-10-31 19:23] LABS: Estimated Average Glucose 197 mg/dl; Hemoglobin A1C 8.5 %
[2021-10-31 19:29] LABS: Potassium 5.3 mEq/L (3.5-5.1)
[2021-10-31] MEDS: Budesonide/Formoterol 160/4.5 1 PUFF INH IH SCH (20:05)
[2021-10-31] MEDS: Ipratropium/Albuterol Neb 3 ML IH SCH (20:05)
[2021-10-31] MEDS: Insulin DETEMIR 100 UNIT/ML X5UNITS SUBQ SCH (20:36)
[2021-10-31] MEDS: Insulin LISPRO 300 UNITS/3 ML VIAL SUBQ SCH (20:36)
[2021-11-01] MEDS: Ipratropium/Albuterol Neb 3 ML IH SCH ×7 (00:04→23:26)
[2021-11-01 02:20] LABS: Basophils % 0.1 %; Eosinophils # 0.1 K/mcL (0.0-0.6); Eosinophils % 0.5 %; Hematocrit 29.7 % (37.5-50.1); Immature Granulocytes % 0.3 % (0-4); Lymphocytes # 1.3 K/mcL (0.6-4.6); Lymphocytes % 9.8 %; Mean Corpuscular HGB Conc 30.3 g/dL (31.6-35.5); Mean Corpuscular Hemoglobin 22.6 pg (28.0-33.3); Mean Corpuscular Volume 74.4 fL (83.0-100.0); Mean Platelet Volume 9.1 fL (9.4-12.4); Monocytes # 0.9 K/mcL (0.0-1.3); Monocytes % 6.7 %; Neutrophils # 10.6 K/mcL (1.6-8.9); Platelet Count 228 K/mcL (140-400); Red Blood Count 3.99 M/mcL (4.19-5.50); Red Cell Distribution Width 18.6 % (11.5-14.5); Segmented Neutrophils % 82.6 %; White Blood Count 12.8 K/mcL (4.3-11.1)
[2021-11-01 02:24] LABS: Calcium 8.6 mg/dL (8.6-10.3); Potassium 4.8 mEq/L (3.5-5.1)
[2021-11-01] MEDS: Budesonide/Formoterol 160/4.5 1 PUFF INH IH SCH ×2 (07:38→20:01)
[2021-11-01] MEDS: Insulin LISPRO 300 UNITS/3 ML VIAL SUBQ SCH ×6 (08:29→20:25)
[2021-11-01] MEDS: CeFAZolin 2 GM/100 ML BAG IVPB SCH ×3 (08:36→23:15)
[2021-11-01] MEDS: DilTIAZem CD (24hr) 120 MG CAP.ER.24H PO SCH (08:36)
[2021-11-01] MEDS: Insulin DETEMIR 100 UNIT/ML X5UNITS SUBQ SCH ×2 (08:36→20:21)
[2021-11-01] MEDS ORDERED: *HR* Rivaroxaban 10 MG TABLET PO SCH (09:00)
[2021-11-01] MEDS: Simethicone 80 MG TAB.CHEW PO PRN ×2 (13:41→20:19)
[2021-11-01] MEDS: *HR* HYDROcodone/Acet 5/325 mg TABLET PO PRN (20:19)
[2021-11-02 02:20] LABS: Basophils % 0.2 %; Eosinophils # 0.1 K/mcL (0.0-0.6); Eosinophils % 0.8 %; Hematocrit 32.1 % (37.5-50.1); Hemoglobin 9.3 g/dL (12.9-16.9); Immature Granulocytes % 0.5 % (0-4); Lymphocytes # 1.3 K/mcL (0.6-4.6); Lymphocytes % 11.3 %; Mean Corpuscular Hemoglobin 21.6 pg (28.0-33.3); Mean Corpuscular Volume 74.7 fL (83.0-100.0); Mean Platelet Volume 9.1 fL (9.4-12.4); Monocytes # 0.8 K/mcL (0.0-1.3); Monocytes % 6.5 %; Neutrophils # 9.6 K/mcL (1.6-8.9); Platelet Count 257 K/mcL (140-400); Red Cell Distribution Width 18.6 % (11.5-14.5); Segmented Neutrophils % 80.7 %; White Blood Count 11.8 K/mcL (4.3-11.1)
[2021-11-02 02:33] LABS: Calcium 9.1 mg/dL (8.6-10.3); Potassium 4.6 mEq/L (3.5-5.1)
[2021-11-02] MEDS: Ipratropium/Albuterol Neb 3 ML IH SCH ×6 (04:00→23:51)
[2021-11-02] MEDS: Budesonide/Formoterol 160/4.5 1 PUFF INH IH SCH ×2 (07:24→20:22)
[2021-11-02] MEDS: Insulin LISPRO 300 UNITS/3 ML VIAL SUBQ SCH ×4 (07:37→19:58)
[2021-11-02] MEDS: CeFAZolin 2 GM/100 ML BAG IVPB SCH ×2 (07:46→16:04)
[2021-11-02] MEDS: Bumetanide 1 MG TABLET PO SCH ×2 (07:47→16:03)
[2021-11-02] MEDS: Insulin DETEMIR 100 UNIT/ML X5UNITS SUBQ SCH ×2 (08:48→19:56)
[2021-11-02] MEDS: Isosorbide MONOnitrate (24 HR) 30 MG TAB.ER.24H PO SCH (08:49)
[2021-11-02] MEDS: Aspirin Enteric Coated 81 MG Tablet PO SCH (08:49)
[2021-11-02] MEDS: DilTIAZem CD (24hr) 120 MG CAP.ER.24H PO SCH (08:49)
[2021-11-02] MEDS: Cholecalciferol (D-3) 1,000 UNIT (25MCG) TABLET PO SCH (08:49)
[2021-11-02] MEDS: cloNIDine HCL 0.1 MG TABLET PO SCH ×3 (08:50→19:55)
[2021-11-02] MEDS: Cyanocobalamin (B-12) 1,000 MCG TABLET PO SCH (08:50)
[2021-11-02] MEDS ORDERED: lisinopriL 10 MG TABLET PO SCH (09:00)
[2021-11-02] MEDS: Simethicone 80 MG TAB.CHEW PO PRN ×2 (11:53→19:55)
[2021-11-02] MEDS: *HR* Rivaroxaban 15 MG TABLET PO SCH (16:02)
[2021-11-03] MEDS: CeFAZolin 2 GM/100 ML BAG IVPB SCH ×3 (00:46→15:25)
[2021-11-03 02:25] LABS: Basophils % 0.2 %; Eosinophils # 0.1 K/mcL (0.0-0.6); Eosinophils % 0.6 %; Hematocrit 30.9 % (37.5-50.1); Hemoglobin 9.1 g/dL (12.9-16.9); Immature Granulocytes % 0.3 % (0-4); Lymphocytes # 1.3 K/mcL (0.6-4.6); Lymphocytes % 9.1 %; Mean Corpuscular HGB Conc 29.4 g/dL (31.6-35.5); Mean Corpuscular Hemoglobin 22.2 pg (28.0-33.3); Mean Corpuscular Volume 75.4 fL (83.0-100.0); Mean Platelet Volume 9.2 fL (9.4-12.4); Monocytes # 0.9 K/mcL (0.0-1.3); Neutrophils # 12.1 K/mcL (1.6-8.9); Platelet Count 241 K/mcL (140-400); Red Cell Distribution Width 18.6 % (11.5-14.5); Segmented Neutrophils % 83.8 %; White Blood Count 14.5 K/mcL (4.3-11.1)
[2021-11-03 02:45] LABS: Calcium 8.8 mg/dL (8.6-10.3); Magnesium 1.8 mg/dL (1.6-2.6); Potassium 5.4 mEq/L (3.5-5.1)
[2021-11-03] MEDS: Ipratropium/Albuterol Neb 3 ML IH SCH ×5 (04:27→20:08)
[2021-11-03] MEDS: Budesonide/Formoterol 160/4.5 1 PUFF INH IH SCH ×2 (07:16→20:09)
[2021-11-03] MEDS: Insulin LISPRO 300 UNITS/3 ML VIAL SUBQ SCH ×4 (07:30→22:20)
[2021-11-03] MEDS: DilTIAZem CD (24hr) 120 MG CAP.ER.24H PO SCH (08:12)
[2021-11-03] MEDS: Aspirin Enteric Coated 81 MG Tablet PO SCH (08:12)
[2021-11-03] MEDS: Isosorbide MONOnitrate (24 HR) 30 MG TAB.ER.24H PO SCH (08:12)
[2021-11-03] MEDS: Doxycycline 100 MG CAPSULE PO SCH ×2 (08:12→22:33)
[2021-11-03] MEDS: Insulin DETEMIR 100 UNIT/ML X5UNITS SUBQ SCH ×2 (08:13→22:34)
[2021-11-03] MEDS: cloNIDine HCL 0.1 MG TABLET PO SCH ×3 (08:13→22:33)
[2021-11-03] MEDS: SODIUM ZIRCONIUM CYCLOSILICATE 5 GM POWD.PACK PO SCH ×2 (08:13→08:33)
[2021-11-03] MEDS: Cyanocobalamin (B-12) 1,000 MCG TABLET PO SCH (08:13)
[2021-11-03] MEDS: Cholecalciferol (D-3) 1,000 UNIT (25MCG) TABLET PO SCH (08:16)
[2021-11-03] MEDS ORDERED: Albumin 25% 25gram/100mL 25 GM/100 ML IV.SOLN IVPB ONE (11:26)
[2021-11-03] MEDS ORDERED: Furosemide 40 MG/4 ML VIAL IVP ONE (13:26)
[2021-11-03] MEDS: *HR* Rivaroxaban 15 MG TABLET PO SCH (15:57)
[2021-11-04] MEDS: Ipratropium/Albuterol Neb 3 ML IH SCH ×7 (00:12→23:44)
[2021-11-04] MEDS: CeFAZolin 2 GM/100 ML BAG IVPB SCH ×3 (00:22→17:17)
[2021-11-04 01:30] LABS: Basophils % 0.2 %; Eosinophils # 0.2 K/mcL (0.0-0.6); Eosinophils % 1.5 %; Hematocrit 29.7 % (37.5-50.1); Hemoglobin 8.7 g/dL (12.9-16.9); Immature Granulocytes % 0.6 % (0-4); Lymphocytes % 14.6 %; Mean Corpuscular HGB Conc 29.3 g/dL (31.6-35.5); Mean Corpuscular Hemoglobin 21.4 pg (28.0-33.3); Mean Corpuscular Volume 73.2 fL (83.0-100.0); Mean Platelet Volume 9.3 fL (9.4-12.4); Monocytes # 0.9 K/mcL (0.0-1.3); Monocytes % 6.3 %; Neutrophils # 10.3 K/mcL (1.6-8.9); Platelet Count 248 K/mcL (140-400); Red Blood Count 4.06 M/mcL (4.19-5.50); Red Cell Distribution Width 18.6 % (11.5-14.5); Segmented Neutrophils % 76.8 %; White Blood Count 13.5 K/mcL (4.3-11.1)
[2021-11-04 01:47] LABS: Calcium 9.1 mg/dL (8.6-10.3); Magnesium 1.8 mg/dL (1.6-2.6); Potassium 4.9 mEq/L (3.5-5.1)
[2021-11-04] MEDS: Budesonide/Formoterol 160/4.5 1 PUFF INH IH SCH ×2 (07:17→20:15)
[2021-11-04] MEDS: cloNIDine HCL 0.1 MG TABLET PO SCH ×3 (08:21→22:33)
[2021-11-04] MEDS: Isosorbide MONOnitrate (24 HR) 30 MG TAB.ER.24H PO SCH (08:21)
[2021-11-04] MEDS: Insulin DETEMIR 100 UNIT/ML X5UNITS SUBQ SCH ×2 (08:21→22:32)
[2021-11-04] MEDS: Doxycycline 100 MG CAPSULE PO SCH ×2 (08:21→22:33)
[2021-11-04] MEDS: Aspirin Enteric Coated 81 MG Tablet PO SCH (08:21)
[2021-11-04] MEDS: Cyanocobalamin (B-12) 1,000 MCG TABLET PO SCH (08:21)
[2021-11-04] MEDS: DilTIAZem CD (24hr) 120 MG CAP.ER.24H PO SCH (08:21)
[2021-11-04] MEDS: Cholecalciferol (D-3) 1,000 UNIT (25MCG) TABLET PO SCH (08:21)
[2021-11-04] MEDS: Insulin LISPRO 300 UNITS/3 ML VIAL SUBQ SCH ×4 (08:22→22:34)
[2021-11-04] MEDS: *HR* HYDROcodone/Acet 5/325 mg TABLET PO PRN (08:29)
[2021-11-04] MEDS: SODIUM ZIRCONIUM CYCLOSILICATE 5 GM POWD.PACK PO SCH (10:06)
[2021-11-04] MEDS: Simethicone 80 MG TAB.CHEW PO PRN (13:58)
[2021-11-04] MEDS: *HR* Rivaroxaban 15 MG TABLET PO SCH (17:17)
[2021-11-05] MEDS: CeFAZolin 2 GM/100 ML BAG IVPB SCH ×2 (00:19→09:38)
[2021-11-05] MEDS: Ipratropium/Albuterol Neb 3 ML IH SCH ×6 (04:10→23:53)
[2021-11-05] MEDS: Budesonide/Formoterol 160/4.5 1 PUFF INH IH SCH ×2 (08:07→19:41)
[2021-11-05] MEDS: Aspirin Enteric Coated 81 MG Tablet PO SCH (08:17)
[2021-11-05] MEDS: Doxycycline 100 MG CAPSULE PO SCH ×2 (08:17→21:20)
[2021-11-05] MEDS: Cholecalciferol (D-3) 1,000 UNIT (25MCG) TABLET PO SCH (08:17)
[2021-11-05] MEDS: Isosorbide MONOnitrate (24 HR) 30 MG TAB.ER.24H PO SCH (08:17)
[2021-11-05] MEDS: Cyanocobalamin (B-12) 1,000 MCG TABLET PO SCH (08:17)
[2021-11-05] MEDS: cloNIDine HCL 0.1 MG TABLET PO SCH ×3 (08:17→21:20)
[2021-11-05] MEDS: DilTIAZem CD (24hr) 120 MG CAP.ER.24H PO SCH (08:17)
[2021-11-05] MEDS: Insulin LISPRO 300 UNITS/3 ML VIAL SUBQ SCH ×4 (08:19→21:22)
[2021-11-05] MEDS: Insulin DETEMIR 100 UNIT/ML X5UNITS SUBQ SCH ×2 (09:38→21:31)
[2021-11-05] MEDS: *HR* Rivaroxaban 15 MG TABLET PO SCH (16:24)
[2021-11-05 17:35] LABS: Adenovirus Not Detected (Not Detect); Bordetella Pertussis Not Detected (Not Detect); Chlamydophila pneumoniae Not Detected (Not Detect); Coronavirus 229E Not Detected (Not Detect); Coronavirus HKU1 Not Detected (Not Detect); Coronavirus NL63 Not Detected (Not Detect); Coronavirus OC43 Not Detected (Not Detect); Human Metapneumovirus Not Detected (Not Detect); Human Rhinovirus/Enterovirus Not Detected (Not Detect); Influenza A Subtype 2009 H1 Not Detected (Not Detect); Influenza B Not Detected (Not Detect); Mycoplasma pneumoniae Not Detected (Not Detect); Parainfluenza Virus 1 Not Detected (Not Detect); Parainfluenza Virus 2 Not Detected (Not Detect); Parainfluenza Virus 3 Not Detected (Not Detect); Parainfluenza Virus 4 Not Detected (Not Detect); Respiratory Syncytial Virus Not Detected (Not Detect); SARS-CoV-2 Not Detected (Not Detect)
[2021-11-05] MEDS ORDERED: cephALEXin 500 MG CAPSULE PO SCH (21:00)
[2021-11-05 23:45] VITALS: BP 181/84; PULSE 81; TEMP 97.6; O2SAT 95
== END 2021-11-05 23:57 | DRG 380 ==
LOC: 2ANU → SUATTDRO 16:43
PROVIDERS: ADMIT Internal Medicine; ATTEND Family Medicine

== ENCOUNTER 2021-11-13 01:00 | Inpatient (IN) ==
[2021-11-13] MEDS ORDERED: Naloxone 0.4 MG/ML INJ IVP PRN (03:51)
[2021-11-13 05:19] LABS: Basophils % 0.4 %; Eosinophils # 0.2 K/mcL (0.0-0.6); Eosinophils % 1.4 %; Hematocrit 31.5 % (37.5-50.1); Hemoglobin 9.5 g/dL (12.9-16.9); Immature Granulocytes % 0.7 % (0-4); Lymphocytes % 17.8 %; Mean Corpuscular HGB Conc 30.2 g/dL (31.6-35.5); Mean Corpuscular Hemoglobin 22.2 pg (28.0-33.3); Mean Corpuscular Volume 73.8 fL (83.0-100.0); Mean Platelet Volume 9.4 fL (9.4-12.4); Monocytes # 0.8 K/mcL (0.0-1.3); Monocytes % 7.2 %; Neutrophils # 8.1 K/mcL (1.6-8.9); Platelet Count 258 K/mcL (140-400); Red Blood Count 4.27 M/mcL (4.19-5.50); Red Cell Distribution Width 18.9 % (11.5-14.5); Segmented Neutrophils % 72.5 %; White Blood Count 11.2 K/mcL (4.3-11.1)
[2021-11-13 05:44] LABS: Troponin I 0.04 ng/mL (< 0.04)
[2021-11-13] MEDS ORDERED: Perflutren Lipid Microsphere 1.3 ML in 0.9 % Sodium Chloride 8.7 ML IVP PRN (05:49)
[2021-11-13] MEDS ORDERED: D5% in Water 1,000 ML IVC PRN (05:59)
[2021-11-13] MEDS ORDERED: *HR* Dextrose 50 % in Water (Syg) 50 ML SYRINGE IVP PRN (05:59)
[2021-11-13] MEDS ORDERED: Dextrose 4 GM Chewable Tablets PO PRN ×2 (05:59)
[2021-11-13 06:10] LABS: Albumin 3.4 g/dL (3.5-5.7); Albumin/Globulin Ratio 0.8 (1.1-2.2); Bilirubin,Total 0.4 mg/dL (0.3-1.0); Calcium 9.6 mg/dL (8.6-10.3); Globulin 4.2 g/dL (2.4-3.5); Magnesium 2.1 mg/dL (1.6-2.6); Phosphorous 5.6 mg/dL (2.7-4.5); Potassium 6.3 mEq/L (3.5-5.1); Total Protein 7.6 g/dL (6.4-8.9)
[2021-11-13] MEDS ORDERED: Insulin Human Regular 10 UNIT in 0.9 % Sodium Chloride 10 ML IV ONE (06:33)
[2021-11-13] MEDS ORDERED: *HR* Dextrose 50 % in Water (Syg) 50 ML SYRINGE IVP ONE (06:33)
[2021-11-13] MEDS: Insulin LISPRO 300 UNITS/3 ML VIAL SUBQ SCH ×3 (07:38→16:48)
[2021-11-13 07:41] LABS: Bacteria,Urine Few per hpf (None-Few); Bilirubin,Urine Negative (Negative); Blood,Urine Negative (Negative); Clarity,Urine Clear (Clear); Color,Urine Light-Yellow (Yellow); Glucose,Urine (UA) Normal (Normal); Hyaline Casts,Urine Few per lpf (None Seen); Ketones,Urine Negative (Negative); Leukocyte Esterase,Urine Small (Negative); Mucus,Urine Few per lpf (None-Few); Nitrite,Urine Negative (Negative); PH,Urine 5.5 pH Units (5.0-8.0); Protein,Urine Trace mg/dL (Neg-Trace); Specific Gravity,Urine 1.013 (1.010-1.025); Squamous Epithelial Cell,Urine Few per hpf (None-Few); Urobilinogen,Urine Normal (Normal); WBC,Urine 0-3 per hpf (0-3)
[2021-11-13 07:53] LABS: Protein/Creatinine Ratio,Urine 0.34 mg/mg (0.00-0.20)
[2021-11-13] MEDS: Aspirin 81 MG TAB.CHEW PO SCH (07:53)
[2021-11-13] MEDS: Metoprolol XL (24 HR) Succ 25 MG TAB.ER.24H PO SCH (07:53)
[2021-11-13] MEDS: SODIUM ZIRCONIUM CYCLOSILICATE 5 GM POWD.PACK PO SCH ×3 (07:54→22:13)
[2021-11-13] MEDS: Chlorhexidine Rinse 15 ML MOUTHWASH MM SCH ×2 (08:37→22:08)
[2021-11-13] MEDS: Budesonide/Formoterol 160/4.5 1 PUFF INH IH SCH ×2 (08:46→19:48)
[2021-11-13] MEDS: Ipratropium/Albuterol Neb 3 ML IH SCH ×5 (08:46→23:35)
[2021-11-13 09:28] LABS: Folate 20.8 ng/mL (3.0-16.0)
[2021-11-13 09:39] LABS: Vitamin B12 > 1500 pg/mL (250-1100)
[2021-11-13] MEDS ORDERED: *HR* Heparin 5,000 UNIT/ML VIAL IVP ONE (10:26)
[2021-11-13] MEDS ORDERED: *HR* Heparin 5,000 UNIT/ML VIAL IVP PRN ×2 (10:26)
[2021-11-13] MEDS ORDERED: Heparin 25,000UNIT/250ML 1/2NS 25,000 UNIT/250 ML IV.SOLN IVC SCH (10:30)
[2021-11-13 13:29] LABS: Hematocrit 31.9 % (37.5-50.1); Hemoglobin 9.4 g/dL (12.9-16.9); Mean Corpuscular HGB Conc 29.5 g/dL (31.6-35.5); Mean Corpuscular Hemoglobin 21.9 pg (28.0-33.3); Mean Corpuscular Volume 74.2 fL (83.0-100.0); Mean Platelet Volume 9.2 fL (9.4-12.4); Platelet Count 257 K/mcL (140-400); White Blood Count 13.9 K/mcL (4.3-11.1)
[2021-11-13 13:37] LABS: INR 2.4; Prothrombin Time 26.1 Seconds (9.4-12.1)
[2021-11-13 13:46] LABS: Heparin anti-factor XA UFH 1.84 IU/mL (0.30-0.70)
[2021-11-13 13:55] LABS: Calcium 9.6 mg/dL (8.6-10.3); Potassium 5.8 mEq/L (3.5-5.1)
[2021-11-13 13:59] LABS: Troponin I 0.04 ng/mL (< 0.04)
[2021-11-13 14:24] LABS: Albumin 3.2 g/dL (3.5-5.7); Calcium 9.3 mg/dL (8.6-10.3); Phosphorous 5.4 mg/dL (2.7-4.5); Potassium 6.4 mEq/L (3.5-5.1)
[2021-11-13 14:37] LABS: Thyroid Stimulating Hormone 8.897 mcIU/mL (0.340-5.600)
[2021-11-13] MEDS ORDERED: *HR* Rivaroxaban 15 MG TABLET PO SCH (17:00)
[2021-11-13] MEDS ORDERED: Albuterol 2.5 MG/3 ML NEBULIZER IH PRN (17:32)
[2021-11-13] MEDS: Melatonin 3 MG TABLET PO PRN (22:09)
[2021-11-13] MEDS: cloNIDine HCL 0.1 MG TABLET PO SCH (22:09)
[2021-11-13] MEDS: Insulin DETEMIR 100 UNIT/ML X5UNITS SUBQ SCH (22:18)
[2021-11-14] MEDS: Ipratropium/Albuterol Neb 3 ML IH SCH ×6 (03:34→23:41)
[2021-11-14] MEDS: Chlorhexidine Rinse 15 ML MOUTHWASH MM SCH ×2 (08:02→21:53)
[2021-11-14] MEDS: Isosorbide MONOnitrate (24 HR) 30 MG TAB.ER.24H PO SCH (08:02)
[2021-11-14] MEDS: Budesonide/Formoterol 160/4.5 1 PUFF INH IH SCH ×2 (08:02→20:18)
[2021-11-14] MEDS: Insulin LISPRO 300 UNITS/3 ML VIAL SUBQ SCH ×3 (08:02→17:39)
[2021-11-14] MEDS: Aspirin 81 MG TAB.CHEW PO SCH (08:02)
[2021-11-14] MEDS: Cyanocobalamin (B-12) 1,000 MCG TABLET PO SCH (08:02)
[2021-11-14] MEDS: DilTIAZem CD (24hr) 120 MG CAP.ER.24H PO SCH (08:02)
[2021-11-14] MEDS: cloNIDine HCL 0.1 MG TABLET PO SCH ×3 (08:02→21:53)
[2021-11-14] MEDS: Metoprolol XL (24 HR) Succ 25 MG TAB.ER.24H PO SCH (08:02)
[2021-11-14] MEDS: SODIUM ZIRCONIUM CYCLOSILICATE 5 GM POWD.PACK PO SCH (08:03)
[2021-11-14 11:31] LABS: Sodium, Urine 32.2 mEq/L
[2021-11-14] MEDS ORDERED: Furosemide 40 MG/4 ML VIAL IVP ONE (12:47)
[2021-11-14 12:53] LABS: Basophils % 0.3 %; Eosinophils # 0.2 K/mcL (0.0-0.6); Eosinophils % 1.3 %; Hematocrit 28.8 % (37.5-50.1); Hemoglobin 8.7 g/dL (12.9-16.9); Immature Granulocytes % 0.4 % (0-4); Lymphocytes # 1.4 K/mcL (0.6-4.6); Lymphocytes % 12.3 %; Mean Corpuscular HGB Conc 30.2 g/dL (31.6-35.5); Mean Corpuscular Volume 72.9 fL (83.0-100.0); Mean Platelet Volume 9.5 fL (9.4-12.4); Monocytes # 0.7 K/mcL (0.0-1.3); Monocytes % 6.3 %; Platelet Count 252 K/mcL (140-400); Red Blood Count 3.95 M/mcL (4.19-5.50); Red Cell Distribution Width 19.1 % (11.5-14.5); Segmented Neutrophils % 79.4 %; White Blood Count 11.4 K/mcL (4.3-11.1)
[2021-11-14 13:14] LABS: Albumin 3.2 g/dL (3.5-5.7); Albumin/Globulin Ratio 0.8 (1.1-2.2); Bilirubin,Total 0.4 mg/dL (0.3-1.0); Calcium 9.3 mg/dL (8.6-10.3); Potassium 5.1 mEq/L (3.5-5.1); Total Protein 7.2 g/dL (6.4-8.9)
[2021-11-14] MEDS ORDERED: *HR* Rivaroxaban 15 MG TABLET PO SCH (17:00)
[2021-11-14] MEDS ORDERED: Furosemide 20 MG/2 ML VIAL IVP SCH (21:00)
[2021-11-14] MEDS: Melatonin 3 MG TABLET PO PRN (21:52)
[2021-11-14] MEDS: Insulin DETEMIR 100 UNIT/ML X5UNITS SUBQ SCH (22:05)
[2021-11-15] MEDS: Ipratropium/Albuterol Neb 3 ML IH SCH ×6 (03:44→23:50)
[2021-11-15 06:08] LABS: Calcium 8.9 mg/dL (8.6-10.3); Potassium 5.6 mEq/L (3.5-5.1)
[2021-11-15] MEDS: Budesonide/Formoterol 160/4.5 1 PUFF INH IH SCH ×2 (07:35→20:37)
[2021-11-15] MEDS: Aspirin 81 MG TAB.CHEW PO SCH (08:07)
[2021-11-15] MEDS: Metoprolol XL (24 HR) Succ 25 MG TAB.ER.24H PO SCH (08:07)
[2021-11-15] MEDS: DilTIAZem CD (24hr) 120 MG CAP.ER.24H PO SCH (08:07)
[2021-11-15] MEDS: Isosorbide MONOnitrate (24 HR) 30 MG TAB.ER.24H PO SCH (08:07)
[2021-11-15] MEDS: Cyanocobalamin (B-12) 1,000 MCG TABLET PO SCH (08:07)
[2021-11-15] MEDS: Chlorhexidine Rinse 15 ML MOUTHWASH MM SCH (08:08)
[2021-11-15] MEDS: cloNIDine HCL 0.1 MG TABLET PO SCH ×3 (08:08→21:21)
[2021-11-15] MEDS: SODIUM ZIRCONIUM CYCLOSILICATE 5 GM POWD.PACK PO SCH (08:08)
[2021-11-15] MEDS: Insulin LISPRO 300 UNITS/3 ML VIAL SUBQ SCH ×3 (08:09→17:30)
[2021-11-15] MEDS ORDERED: Furosemide 40 MG/4 ML VIAL IVP SCH (13:00)
[2021-11-15] MEDS ORDERED: Furosemide 80 MG in 0.9 % Sodium Chloride 50 ML IV SCH (13:15)
[2021-11-15] MEDS ORDERED: *HR* Rivaroxaban 10 MG TABLET PO SCH (17:00)
[2021-11-15] MEDS: *HR* Rivaroxaban 15 MG TABLET PO SCH (17:30)
[2021-11-15] MEDS: Insulin DETEMIR 100 UNIT/ML X5UNITS SUBQ SCH (21:18)
[2021-11-16] MEDS: Ipratropium/Albuterol Neb 3 ML IH SCH ×6 (04:35→23:53)
[2021-11-16 06:04] LABS: Calcium 9.2 mg/dL (8.6-10.3); Potassium 5.4 mEq/L (3.5-5.1)
[2021-11-16] MEDS: Metoprolol XL (24 HR) Succ 25 MG TAB.ER.24H PO SCH (08:03)
[2021-11-16] MEDS: Isosorbide MONOnitrate (24 HR) 30 MG TAB.ER.24H PO SCH (08:03)
[2021-11-16] MEDS: cloNIDine HCL 0.1 MG TABLET PO SCH ×3 (08:03→19:32)
[2021-11-16] MEDS: Aspirin 81 MG TAB.CHEW PO SCH (08:03)
[2021-11-16] MEDS: DilTIAZem CD (24hr) 120 MG CAP.ER.24H PO SCH (08:03)
[2021-11-16] MEDS: SODIUM ZIRCONIUM CYCLOSILICATE 5 GM POWD.PACK PO SCH (08:04)
[2021-11-16] MEDS: Cyanocobalamin (B-12) 1,000 MCG TABLET PO SCH (08:05)
[2021-11-16] MEDS: Insulin LISPRO 300 UNITS/3 ML VIAL SUBQ SCH ×3 (08:05→18:18)
[2021-11-16] MEDS ORDERED: Furosemide 80 MG in 0.9 % Sodium Chloride 50 ML IV SCH (09:00)
[2021-11-16] MEDS: Budesonide/Formoterol 160/4.5 1 PUFF INH IH SCH ×2 (11:29→20:10)
[2021-11-16] MEDS: *HR* Rivaroxaban 15 MG TABLET PO SCH (15:44)
[2021-11-16] MEDS: Insulin DETEMIR 100 UNIT/ML X5UNITS SUBQ SCH (19:34)
[2021-11-16] MEDS: Furosemide 80 MG in 0.9 % Sodium Chloride 50 ML IV SCH (20:54)
[2021-11-17] MEDS: Ipratropium/Albuterol Neb 3 ML IH SCH ×5 (04:20→20:32)
[2021-11-17] MEDS: Budesonide/Formoterol 160/4.5 1 PUFF INH IH SCH ×2 (07:16→20:32)
[2021-11-17] MEDS: DilTIAZem CD (24hr) 120 MG CAP.ER.24H PO SCH (08:59)
[2021-11-17] MEDS: Metoprolol XL (24 HR) Succ 25 MG TAB.ER.24H PO SCH (08:59)
[2021-11-17] MEDS: SODIUM ZIRCONIUM CYCLOSILICATE 5 GM POWD.PACK PO SCH (08:59)
[2021-11-17] MEDS: cloNIDine HCL 0.1 MG TABLET PO SCH ×3 (09:00→20:17)
[2021-11-17] MEDS: Isosorbide MONOnitrate (24 HR) 30 MG TAB.ER.24H PO SCH (09:00)
[2021-11-17] MEDS: Aspirin 81 MG TAB.CHEW PO SCH (09:00)
[2021-11-17] MEDS: Cyanocobalamin (B-12) 1,000 MCG TABLET PO SCH (09:00)
[2021-11-17] MEDS: Insulin LISPRO 300 UNITS/3 ML VIAL SUBQ SCH ×3 (09:08→17:30)
[2021-11-17] MEDS: Furosemide 80 MG in 0.9 % Sodium Chloride 50 ML IV SCH ×2 (09:26→17:29)
[2021-11-17 11:35] LABS: Calcium 9.2 mg/dL (8.6-10.3); Potassium 5.2 mEq/L (3.5-5.1)
[2021-11-17] MEDS: *HR* Rivaroxaban 15 MG TABLET PO SCH (17:32)
[2021-11-17] MEDS: Insulin DETEMIR 100 UNIT/ML X5UNITS SUBQ SCH (20:32)
[2021-11-18] MEDS: Ipratropium/Albuterol Neb 3 ML IH SCH ×6 (00:06→20:41)
[2021-11-18 04:09] LABS: Calcium 9.1 mg/dL (8.6-10.3); Potassium 5.3 mEq/L (3.5-5.1)
[2021-11-18] MEDS: Budesonide/Formoterol 160/4.5 1 PUFF INH IH SCH ×2 (07:51→20:41)
[2021-11-18] MEDS: Cyanocobalamin (B-12) 1,000 MCG TABLET PO SCH (08:44)
[2021-11-18] MEDS: DilTIAZem CD (24hr) 120 MG CAP.ER.24H PO SCH (08:44)
[2021-11-18] MEDS: Metoprolol XL (24 HR) Succ 25 MG TAB.ER.24H PO SCH (08:44)
[2021-11-18] MEDS: Isosorbide MONOnitrate (24 HR) 30 MG TAB.ER.24H PO SCH (08:44)
[2021-11-18] MEDS: Insulin LISPRO 300 UNITS/3 ML VIAL SUBQ SCH ×3 (08:44→17:16)
[2021-11-18] MEDS: Aspirin 81 MG TAB.CHEW PO SCH (08:45)
[2021-11-18] MEDS: cloNIDine HCL 0.1 MG TABLET PO SCH (08:45)
[2021-11-18] MEDS: SODIUM ZIRCONIUM CYCLOSILICATE 5 GM POWD.PACK PO SCH (08:45)
[2021-11-18] MEDS: Furosemide 80 MG in 0.9 % Sodium Chloride 50 ML IV SCH ×2 (08:46→17:16)
[2021-11-18 09:29] LABS: Magnesium 2.1 mg/dL (1.6-2.6)
[2021-11-18 14:52] LABS: Basophils % 0.2 %; Eosinophils # 0.2 K/mcL (0.0-0.6); Eosinophils % 1.1 %; Hematocrit 27.3 % (37.5-50.1); Hemoglobin 8.3 g/dL (12.9-16.9); Immature Granulocytes % 0.5 % (0-4); Lymphocytes # 1.1 K/mcL (0.6-4.6); Lymphocytes % 8.1 %; Mean Corpuscular HGB Conc 30.4 g/dL (31.6-35.5); Mean Corpuscular Hemoglobin 22.9 pg (28.0-33.3); Mean Corpuscular Volume 75.2 fL (83.0-100.0); Mean Platelet Volume 9.3 fL (9.4-12.4); Monocytes # 0.8 K/mcL (0.0-1.3); Monocytes % 5.7 %; Neutrophils # 11.8 K/mcL (1.6-8.9); Platelet Count 210 K/mcL (140-400); Red Blood Count 3.63 M/mcL (4.19-5.50); Red Cell Distribution Width 19.7 % (11.5-14.5); Segmented Neutrophils % 84.4 %
[2021-11-18] MEDS: *HR* Rivaroxaban 15 MG TABLET PO SCH (17:15)
[2021-11-18] MEDS: Insulin DETEMIR 100 UNIT/ML X5UNITS SUBQ SCH (20:52)
[2021-11-18] MEDS: Melatonin 3 MG TABLET PO PRN (21:05)
[2021-11-19] MEDS: Ipratropium/Albuterol Neb 3 ML IH SCH ×3 (00:06→08:06)
[2021-11-19 07:04] LABS: Potassium 5.1 mEq/L (3.5-5.1)
[2021-11-19] MEDS: Budesonide/Formoterol 160/4.5 1 PUFF INH IH SCH ×2 (08:06→19:56)
[2021-11-19] MEDS: Insulin LISPRO 300 UNITS/3 ML VIAL SUBQ SCH ×3 (08:33→18:55)
[2021-11-19] MEDS: Furosemide 80 MG in 0.9 % Sodium Chloride 50 ML IV SCH ×2 (08:39→16:24)
[2021-11-19] MEDS: Metoprolol XL (24 HR) Succ 25 MG TAB.ER.24H PO SCH (08:40)
[2021-11-19] MEDS: DilTIAZem CD (24hr) 120 MG CAP.ER.24H PO SCH (08:41)
[2021-11-19] MEDS: Cyanocobalamin (B-12) 1,000 MCG TABLET PO SCH (08:41)
[2021-11-19] MEDS: Aspirin 81 MG TAB.CHEW PO SCH (08:41)
[2021-11-19] MEDS: SODIUM ZIRCONIUM CYCLOSILICATE 5 GM POWD.PACK PO SCH (08:41)
[2021-11-19] MEDS: Isosorbide MONOnitrate (24 HR) 30 MG TAB.ER.24H PO SCH (08:41)
[2021-11-19] MEDS ORDERED: Ipratropium/Albuterol Neb 3 ML IH PRN (09:53)
[2021-11-19] MEDS: *HR* Rivaroxaban 15 MG TABLET PO SCH (16:25)
[2021-11-19] MEDS: Insulin DETEMIR 100 UNIT/ML X5UNITS SUBQ SCH (21:23)
[2021-11-20 05:04] LABS: Basophils % 0.2 %; Eosinophils # 0.4 K/mcL (0.0-0.6); Eosinophils % 2.4 %; Hematocrit 28.4 % (37.5-50.1); Hemoglobin 8.4 g/dL (12.9-16.9); Immature Granulocytes % 0.6 % (0-4); Lymphocytes # 1.4 K/mcL (0.6-4.6); Lymphocytes % 9.5 %; Mean Corpuscular HGB Conc 29.6 g/dL (31.6-35.5); Mean Corpuscular Hemoglobin 21.9 pg (28.0-33.3); Mean Platelet Volume 9.2 fL (9.4-12.4); Monocytes # 1.1 K/mcL (0.0-1.3); Monocytes % 7.9 %; Neutrophils # 11.5 K/mcL (1.6-8.9); Platelet Count 240 K/mcL (140-400); Red Blood Count 3.84 M/mcL (4.19-5.50); Red Cell Distribution Width 19.9 % (11.5-14.5); Segmented Neutrophils % 79.4 %; White Blood Count 14.5 K/mcL (4.3-11.1)
[2021-11-20 05:19] LABS: Calcium 9.2 mg/dL (8.6-10.3); Potassium 4.8 mEq/L (3.5-5.1)
[2021-11-20] MEDS: Furosemide 80 MG in 0.9 % Sodium Chloride 50 ML IV SCH ×2 (07:44→16:21)
[2021-11-20] MEDS: Insulin LISPRO 300 UNITS/3 ML VIAL SUBQ SCH ×3 (07:46→18:21)
[2021-11-20] MEDS: Budesonide/Formoterol 160/4.5 1 PUFF INH IH SCH ×2 (08:06→21:06)
[2021-11-20] MEDS: Metoprolol XL (24 HR) Succ 25 MG TAB.ER.24H PO SCH (09:04)
[2021-11-20] MEDS: Aspirin 81 MG TAB.CHEW PO SCH (09:04)
[2021-11-20] MEDS: Isosorbide MONOnitrate (24 HR) 30 MG TAB.ER.24H PO SCH (09:04)
[2021-11-20] MEDS: Cyanocobalamin (B-12) 1,000 MCG TABLET PO SCH (09:04)
[2021-11-20] MEDS: DilTIAZem CD (24hr) 120 MG CAP.ER.24H PO SCH (09:04)
[2021-11-20] MEDS: *HR* Rivaroxaban 15 MG TABLET PO SCH (18:20)
[2021-11-20] MEDS: Insulin DETEMIR 100 UNIT/ML X5UNITS SUBQ SCH (21:19)
[2021-11-21 02:31] LABS: Hematocrit 28.7 % (37.5-50.1); Hemoglobin 8.4 g/dL (12.9-16.9); Mean Corpuscular HGB Conc 29.3 g/dL (31.6-35.5); Mean Corpuscular Hemoglobin 21.9 pg (28.0-33.3); Mean Corpuscular Volume 74.9 fL (83.0-100.0); Mean Platelet Volume 9.3 fL (9.4-12.4); Platelet Count 215 K/mcL (140-400); Red Blood Count 3.83 M/mcL (4.19-5.50); Red Cell Distribution Width 19.8 % (11.5-14.5); White Blood Count 13.2 K/mcL (4.3-11.1)
[2021-11-21 02:43] LABS: Calcium 9.1 mg/dL (8.6-10.3); Potassium 5.6 mEq/L (3.5-5.1)
[2021-11-21] MEDS: Isosorbide MONOnitrate (24 HR) 30 MG TAB.ER.24H PO SCH (09:12)
[2021-11-21] MEDS: Insulin LISPRO 300 UNITS/3 ML VIAL SUBQ SCH ×3 (09:13→18:19)
[2021-11-21] MEDS: DilTIAZem CD (24hr) 120 MG CAP.ER.24H PO SCH (09:13)
[2021-11-21] MEDS: Aspirin 81 MG TAB.CHEW PO SCH (09:13)
[2021-11-21] MEDS: Metoprolol XL (24 HR) Succ 25 MG TAB.ER.24H PO SCH (09:13)
[2021-11-21] MEDS: Cyanocobalamin (B-12) 1,000 MCG TABLET PO SCH (09:13)
[2021-11-21] MEDS: Furosemide 80 MG in 0.9 % Sodium Chloride 50 ML IV SCH ×2 (09:18→16:25)
[2021-11-21] MEDS: Budesonide/Formoterol 160/4.5 1 PUFF INH IH SCH ×2 (09:56→20:01)
[2021-11-21] MEDS ORDERED: SODIUM ZIRCONIUM CYCLOSILICATE 5 GM POWD.PACK PO ONE (11:51)
[2021-11-21] MEDS: Albumin 25% 25gram/100mL 25 GM/100 ML IV.SOLN IVPB SCH ×2 (16:25→23:48)
[2021-11-21] MEDS: *HR* Rivaroxaban 15 MG TABLET PO SCH (16:28)
[2021-11-21] MEDS: Insulin DETEMIR 100 UNIT/ML X5UNITS SUBQ SCH (20:08)
[2021-11-22 02:09] LABS: Basophils % 0.3 %; Eosinophils # 0.3 K/mcL (0.0-0.6); Eosinophils % 2.1 %; Hematocrit 28.1 % (37.5-50.1); Hemoglobin 8.2 g/dL (12.9-16.9); Immature Granulocytes % 0.3 % (0-4); Lymphocytes # 1.4 K/mcL (0.6-4.6); Lymphocytes % 12.1 %; Mean Corpuscular HGB Conc 29.2 g/dL (31.6-35.5); Mean Corpuscular Hemoglobin 22.3 pg (28.0-33.3); Mean Corpuscular Volume 76.4 fL (83.0-100.0); Mean Platelet Volume 8.9 fL (9.4-12.4); Monocytes # 0.9 K/mcL (0.0-1.3); Monocytes % 7.6 %; Neutrophils # 9.1 K/mcL (1.6-8.9); Platelet Count 215 K/mcL (140-400); Red Blood Count 3.68 M/mcL (4.19-5.50); Red Cell Distribution Width 19.7 % (11.5-14.5); Segmented Neutrophils % 77.6 %; White Blood Count 11.7 K/mcL (4.3-11.1)
[2021-11-22 02:29] LABS: Calcium 9.4 mg/dL (8.6-10.3); Magnesium 2.4 mg/dL (1.6-2.6); Potassium 5.2 mEq/L (3.5-5.1)
[2021-11-22] MEDS: Budesonide/Formoterol 160/4.5 1 PUFF INH IH SCH ×2 (07:53→20:17)
[2021-11-22] MEDS: Albumin 25% 25gram/100mL 25 GM/100 ML IV.SOLN IVPB SCH ×2 (08:03→16:41)
[2021-11-22] MEDS: Metoprolol XL (24 HR) Succ 25 MG TAB.ER.24H PO SCH (08:03)
[2021-11-22] MEDS: Insulin LISPRO 300 UNITS/3 ML VIAL SUBQ SCH ×3 (08:03→16:41)
[2021-11-22] MEDS: Isosorbide MONOnitrate (24 HR) 30 MG TAB.ER.24H PO SCH (08:03)
[2021-11-22] MEDS: Cyanocobalamin (B-12) 1,000 MCG TABLET PO SCH (08:03)
[2021-11-22] MEDS: Aspirin 81 MG TAB.CHEW PO SCH (08:03)
[2021-11-22] MEDS: DilTIAZem CD (24hr) 120 MG CAP.ER.24H PO SCH (08:03)
[2021-11-22] MEDS: Furosemide 80 MG in 0.9 % Sodium Chloride 50 ML IV SCH (10:34)
[2021-11-22] MEDS: *HR* Rivaroxaban 15 MG TABLET PO SCH (16:42)
[2021-11-22] MEDS: Acetaminophen 325 MG TABLET PO PRN (17:00)
[2021-11-22] MEDS: Insulin DETEMIR 100 UNIT/ML X5UNITS SUBQ SCH (20:56)
[2021-11-22] MEDS: Furosemide 40 MG/4 ML VIAL IVP SCH (20:56)
[2021-11-23] MEDS: Albumin 25% 25gram/100mL 25 GM/100 ML IV.SOLN IVPB SCH ×3 (00:12→17:00)
[2021-11-23] MEDS: Acetaminophen 325 MG TABLET PO PRN (00:18)
[2021-11-23 00:53] LABS: Basophils % 0.3 %; Eosinophils # 0.3 K/mcL (0.0-0.6); Eosinophils % 2.4 %; Hematocrit 28.9 % (37.5-50.1); Hemoglobin 8.5 g/dL (12.9-16.9); Immature Granulocytes % 0.4 % (0-4); Lymphocytes # 1.6 K/mcL (0.6-4.6); Lymphocytes % 12.4 %; Mean Corpuscular HGB Conc 29.4 g/dL (31.6-35.5); Mean Corpuscular Hemoglobin 22.4 pg (28.0-33.3); Mean Corpuscular Volume 76.3 fL (83.0-100.0); Mean Platelet Volume 9.4 fL (9.4-12.4); Monocytes # 0.9 K/mcL (0.0-1.3); Monocytes % 6.6 %; Neutrophils # 10.1 K/mcL (1.6-8.9); Platelet Count 235 K/mcL (140-400); Red Blood Count 3.79 M/mcL (4.19-5.50); Red Cell Distribution Width 19.6 % (11.5-14.5); Segmented Neutrophils % 77.9 %
[2021-11-23 00:57] LABS: Calcium 9.4 mg/dL (8.6-10.3); Potassium 4.6 mEq/L (3.5-5.1)
[2021-11-23] MEDS: Budesonide/Formoterol 160/4.5 1 PUFF INH IH SCH ×2 (07:55→20:46)
[2021-11-23] MEDS: DilTIAZem CD (24hr) 120 MG CAP.ER.24H PO SCH (10:04)
[2021-11-23] MEDS: Isosorbide MONOnitrate (24 HR) 30 MG TAB.ER.24H PO SCH (10:04)
[2021-11-23] MEDS: Metoprolol XL (24 HR) Succ 25 MG TAB.ER.24H PO SCH (10:04)
[2021-11-23] MEDS: Furosemide 40 MG/4 ML VIAL IVP SCH (10:04)
[2021-11-23] MEDS: Cyanocobalamin (B-12) 1,000 MCG TABLET PO SCH (10:04)
[2021-11-23] MEDS: Aspirin 81 MG TAB.CHEW PO SCH (10:05)
[2021-11-23] MEDS: Insulin LISPRO 300 UNITS/3 ML VIAL SUBQ SCH ×3 (10:05→17:09)
[2021-11-23] MEDS ORDERED: Simethicone 80 MG TAB.CHEW PO PRN (13:56)
[2021-11-23] MEDS ORDERED: *HR* Rivaroxaban 10 MG TABLET PO SCH (17:00)
[2021-11-23] MEDS ORDERED: Bumetanide 1 MG TABLET PO SCH (17:00)
[2021-11-23 18:59] LABS: Influenza A PCR Negative (Negative); Influenza B PCR Negative (Negative); Resp. Syncytial Virus PCR Negative (Negative)
[2021-11-23 19:05] LABS: SARS-CoV-2 by PCR (In House) Negative (Negative)
[2021-11-23 19:21] VITALS: BP 154/55; PULSE 77; TEMP 97.6; O2SAT 98
[2021-11-23] MEDS: Insulin DETEMIR 100 UNIT/ML X5UNITS SUBQ SCH (20:10)
[2021-11-24] MEDS ORDERED: Ascorbic Acid 500 MG TABLET PO SCH (09:00)
[2021-11-24] MEDS ORDERED: Loratadine 10 MG TABLET PO SCH (09:00)
[2021-11-24] MEDS ORDERED: Cholecalciferol (D-3) 1,000 UNIT (25MCG) TABLET PO SCH (09:00)
== END 2021-11-23 20:22 | DRG 194 ==
LOC: 2NENU → SUATTDRO 02:55
PROVIDERS: ADMIT Internal Medicine; ATTEND Family Medicine

== ENCOUNTER 2021-12-04 18:40 | Inpatient (IN) ==
[2021-12-04] MEDS ORDERED: Naloxone 0.4 MG/ML INJ IVP PRN (21:51)
[2021-12-04] MEDS ORDERED: Ondansetron 4 MG/2 ML VIAL IVP PRN (21:51)
[2021-12-04] MEDS ORDERED: Acetaminophen 325 MG TABLET PO PRN (21:51)
[2021-12-04] MEDS ORDERED: *HR* Dextrose 50 % in Water (Syg) 50 ML SYRINGE IVP PRN (21:54)
[2021-12-04] MEDS ORDERED: D5% in Water 1,000 ML IVC PRN (21:54)
[2021-12-04] MEDS ORDERED: Dextrose 4 GM Chewable Tablets PO PRN ×2 (21:54)
[2021-12-04 22:45] LABS: Calcium 9.4 mg/dL (8.6-10.3)
[2021-12-04] MEDS: SODIUM ZIRCONIUM CYCLOSILICATE 5 GM POWD.PACK PO SCH (23:39)
[2021-12-05] MEDS ORDERED: Furosemide 40 MG/4 ML VIAL IVP ONE ×2 (01:01→10:10)
[2021-12-05] MEDS ORDERED: Albuterol 2.5 MG/3 ML NEBULIZER IH PRN (01:19)
[2021-12-05] MEDS: DilTIAZem CD (24hr) 120 MG CAP.ER.24H PO SCH (07:58)
[2021-12-05] MEDS: *HR* Rivaroxaban 15 MG TABLET PO SCH (07:58)
[2021-12-05] MEDS: Aspirin Enteric Coated 81 MG Tablet PO SCH (07:58)
[2021-12-05] MEDS: SODIUM ZIRCONIUM CYCLOSILICATE 5 GM POWD.PACK PO SCH (07:58)
[2021-12-05] MEDS: Isosorbide MONOnitrate (24 HR) 30 MG TAB.ER.24H PO SCH (07:58)
[2021-12-05] MEDS ORDERED: Furosemide 40 MG/4 ML VIAL IVP SCH (09:00)
[2021-12-05] MEDS ORDERED: Furosemide 240 MG in 0.9 % Sodium Chloride 96 ML IVC SCH (10:30)
[2021-12-05 11:26] LABS: Basophils # 0.1 K/mcL (0.0-0.2); Basophils % 0.5 %; Eosinophils # 0.5 K/mcL (0.0-0.6); Hemoglobin 7.6 g/dL (12.9-16.9); Immature Granulocytes % 0.3 % (0-4); Lymphocytes # 1.2 K/mcL (0.6-4.6); Mean Corpuscular HGB Conc 29.2 g/dL (31.6-35.5); Mean Corpuscular Hemoglobin 22.5 pg (28.0-33.3); Mean Corpuscular Volume 76.9 fL (83.0-100.0); Mean Platelet Volume 9.1 fL (9.4-12.4); Monocytes # 0.8 K/mcL (0.0-1.3); Monocytes % 7.8 %; Neutrophils # 7.5 K/mcL (1.6-8.9); Platelet Count 271 K/mcL (140-400); Red Blood Count 3.38 M/mcL (4.19-5.50); Red Cell Distribution Width 19.1 % (11.5-14.5); Segmented Neutrophils % 74.4 %; White Blood Count 10.1 K/mcL (4.3-11.1)
[2021-12-05 11:33] LABS: INR 2.7; Prothrombin Time 30.2 Seconds (9.4-12.1)
[2021-12-05 12:25] LABS: Complement C3 111 mg/dL (87-200)
[2021-12-05 17:02] LABS: Calcium 9.2 mg/dL (8.6-10.3); Potassium 5.9 mEq/L (3.5-5.1)
[2021-12-05] MEDS: Albumin 25% 25gram/100mL 25 GM/100 ML IV.SOLN IVPB SCH ×2 (17:55→23:51)
[2021-12-05 20:29] LABS: Albumin 3.7 g/dL (3.5-5.7); Phosphorous 4.3 mg/dL (2.7-4.5)
[2021-12-05 20:57] LABS: Thyroid Stimulating Hormone 9.694 mcIU/mL (0.340-5.600)
[2021-12-05] MEDS: Simethicone 80 MG TAB.CHEW PO PRN (21:56)
[2021-12-06 05:48] LABS: Hematocrit 26.4 % (37.5-50.1); Hemoglobin 7.7 g/dL (12.9-16.9); Mean Corpuscular HGB Conc 29.2 g/dL (31.6-35.5); Mean Corpuscular Hemoglobin 22.5 pg (28.0-33.3); Mean Corpuscular Volume 77.2 fL (83.0-100.0); Mean Platelet Volume 9.1 fL (9.4-12.4); Platelet Count 280 K/mcL (140-400); Red Blood Count 3.42 M/mcL (4.19-5.50); Red Cell Distribution Width 19.2 % (11.5-14.5); White Blood Count 9.4 K/mcL (4.3-11.1)
[2021-12-06 06:09] LABS: Calcium 9.3 mg/dL (8.6-10.3); Magnesium 2.5 mg/dL (1.6-2.6); Potassium 5.3 mEq/L (3.5-5.1)
[2021-12-06] MEDS: SODIUM ZIRCONIUM CYCLOSILICATE 5 GM POWD.PACK PO SCH (08:54)
[2021-12-06] MEDS: DilTIAZem CD (24hr) 120 MG CAP.ER.24H PO SCH (08:55)
[2021-12-06] MEDS: Aspirin Enteric Coated 81 MG Tablet PO SCH (08:55)
[2021-12-06] MEDS: *HR* Rivaroxaban 15 MG TABLET PO SCH (08:55)
[2021-12-06] MEDS: Isosorbide MONOnitrate (24 HR) 30 MG TAB.ER.24H PO SCH (08:55)
[2021-12-06 10:18] LABS: Protein/Creatinine Ratio,Urine 0.26 mg/mg (0.00-0.20)
[2021-12-06] MEDS: Albumin 25% 25gram/100mL 25 GM/100 ML IV.SOLN IVPB SCH ×3 (12:25→23:20)
[2021-12-06] MEDS: Simethicone 80 MG TAB.CHEW PO PRN ×2 (13:56→20:40)
[2021-12-06] MEDS: Furosemide 240 MG in 0.9 % Sodium Chloride 96 ML IVC SCH (17:35)
[2021-12-06] MEDS ORDERED: Melatonin 3 MG TABLET PO PRN (20:36)
[2021-12-06] MEDS: Insulin LISPRO 300 UNITS/3 ML VIAL SUBQ SCH (20:40)
[2021-12-07 03:35] LABS: Hematocrit 25.6 % (37.5-50.1); Hemoglobin 7.5 g/dL (12.9-16.9); Mean Corpuscular HGB Conc 29.3 g/dL (31.6-35.5); Mean Corpuscular Hemoglobin 22.9 pg (28.0-33.3); Mean Corpuscular Volume 78.3 fL (83.0-100.0); Mean Platelet Volume 9.4 fL (9.4-12.4); Platelet Count 243 K/mcL (140-400); Red Blood Count 3.27 M/mcL (4.19-5.50); Red Cell Distribution Width 19.2 % (11.5-14.5); White Blood Count 9.7 K/mcL (4.3-11.1)
[2021-12-07 03:54] LABS: Calcium 9.6 mg/dL (8.6-10.3); Potassium 5.1 mEq/L (3.5-5.1)
[2021-12-07] MEDS: Insulin LISPRO 300 UNITS/3 ML VIAL SUBQ SCH ×4 (09:49→22:08)
[2021-12-07] MEDS: Isosorbide MONOnitrate (24 HR) 30 MG TAB.ER.24H PO SCH (09:54)
[2021-12-07] MEDS: Aspirin Enteric Coated 81 MG Tablet PO SCH (09:54)
[2021-12-07] MEDS: DilTIAZem CD (24hr) 120 MG CAP.ER.24H PO SCH (09:54)
[2021-12-07] MEDS: *HR* Rivaroxaban 15 MG TABLET PO SCH (09:55)
[2021-12-07] MEDS: Albumin 25% 25gram/100mL 25 GM/100 ML IV.SOLN IVPB SCH ×2 (09:56→16:12)
[2021-12-07 14:57] LABS: Total Volume 24 Hour,Urine 2.52 Liters (0.80-1.80)
[2021-12-07] MEDS: Budesonide/Formoterol 160/4.5 1 PUFF INH IH SCH (20:01)
[2021-12-07] MEDS: Simethicone 80 MG TAB.CHEW PO PRN (20:32)
[2021-12-08] MEDS: Albumin 25% 25gram/100mL 25 GM/100 ML IV.SOLN IVPB SCH ×2 (00:39→09:16)
[2021-12-08 04:22] LABS: Basophils # 0.1 K/mcL (0.0-0.2); Basophils % 0.4 %; Eosinophils # 0.3 K/mcL (0.0-0.6); Eosinophils % 2.2 %; Hematocrit 25.7 % (37.5-50.1); Hemoglobin 7.6 g/dL (12.9-16.9); Immature Granulocytes % 0.3 % (0-4); Lymphocytes # 1.5 K/mcL (0.6-4.6); Lymphocytes % 12.5 %; Mean Corpuscular HGB Conc 29.6 g/dL (31.6-35.5); Mean Corpuscular Hemoglobin 23.1 pg (28.0-33.3); Mean Corpuscular Volume 78.1 fL (83.0-100.0); Mean Platelet Volume 9.1 fL (9.4-12.4); Monocytes % 8.7 %; Platelet Count 232 K/mcL (140-400); Red Blood Count 3.29 M/mcL (4.19-5.50); Red Cell Distribution Width 19.2 % (11.5-14.5); Segmented Neutrophils % 75.9 %; White Blood Count 11.8 K/mcL (4.3-11.1)
[2021-12-08] MEDS: Furosemide 240 MG in 0.9 % Sodium Chloride 96 ML IVC SCH (06:13)
[2021-12-08] MEDS: Budesonide/Formoterol 160/4.5 1 PUFF INH IH SCH ×2 (07:25→20:28)
[2021-12-08] MEDS: Insulin LISPRO 300 UNITS/3 ML VIAL SUBQ SCH ×4 (09:15→21:44)
[2021-12-08] MEDS: Aspirin Enteric Coated 81 MG Tablet PO SCH (09:24)
[2021-12-08] MEDS: DilTIAZem CD (24hr) 120 MG CAP.ER.24H PO SCH (09:25)
[2021-12-08] MEDS: Isosorbide MONOnitrate (24 HR) 30 MG TAB.ER.24H PO SCH (09:25)
[2021-12-08] MEDS: *HR* Rivaroxaban 15 MG TABLET PO SCH (09:25)
[2021-12-08] MEDS: Cyanocobalamin (B-12) 1,000 MCG TABLET PO SCH (09:25)
[2021-12-08] MEDS ORDERED: Furosemide 240 MG in 0.9 % Sodium Chloride 96 ML IVC SCH (10:04)
[2021-12-08 10:30] LABS: Kappa Qnt Free Light Chains 137.49 mg/L (3.30-19.40); Lambda Qnt Free Light Chains 137.16 mg/L (5.71-26.30)
[2021-12-08 10:35] LABS: ANA IgG by ELISA NONE DETECTED (None Detected)
[2021-12-08 13:43] LABS: Immature Reticulocyte % 25.3 % (11.0-38.0); Retculocyte # 0.09 M/mcL (0.05-0.10); Reticulocyte % 2.7 % (1.6-2.8)
[2021-12-09 01:21] LABS: Beta Globulin (PEP) 0.86 g/dL (0.48-1.10)
[2021-12-09 03:24] LABS: Basophils # 0.1 K/mcL (0.0-0.2); Basophils % 0.4 %; Eosinophils # 0.4 K/mcL (0.0-0.6); Eosinophils % 3.8 %; Hematocrit 25.7 % (37.5-50.1); Hemoglobin 7.4 g/dL (12.9-16.9); Immature Granulocytes % 0.3 % (0-4); Lymphocytes # 1.6 K/mcL (0.6-4.6); Lymphocytes % 14.3 %; Mean Corpuscular HGB Conc 28.8 g/dL (31.6-35.5); Mean Corpuscular Hemoglobin 22.5 pg (28.0-33.3); Mean Corpuscular Volume 78.1 fL (83.0-100.0); Mean Platelet Volume 9.2 fL (9.4-12.4); Monocytes # 0.9 K/mcL (0.0-1.3); Monocytes % 8.1 %; Neutrophils # 8.4 K/mcL (1.6-8.9); Platelet Count 230 K/mcL (140-400); Red Blood Count 3.29 M/mcL (4.19-5.50); Red Cell Distribution Width 18.9 % (11.5-14.5); Segmented Neutrophils % 73.1 %; White Blood Count 11.5 K/mcL (4.3-11.1)
[2021-12-09 03:33] LABS: Calcium 9.7 mg/dL (8.6-10.3); Potassium 4.9 mEq/L (3.5-5.1)
[2021-12-09 04:06] LABS: Anisocytosis 1+ (Not Present); Hypochromasia Present (Not Present); Platelet Estimate Normal (Normal)
[2021-12-09] MEDS: DilTIAZem CD (24hr) 120 MG CAP.ER.24H PO SCH (06:59)
[2021-12-09] MEDS: Isosorbide MONOnitrate (24 HR) 30 MG TAB.ER.24H PO SCH (06:59)
[2021-12-09] MEDS: Aspirin Enteric Coated 81 MG Tablet PO SCH (06:59)
[2021-12-09] MEDS: *HR* Rivaroxaban 15 MG TABLET PO SCH (06:59)
[2021-12-09] MEDS: Cyanocobalamin (B-12) 1,000 MCG TABLET PO SCH (06:59)
[2021-12-09] MEDS: Insulin LISPRO 300 UNITS/3 ML VIAL SUBQ SCH ×4 (07:17→20:09)
[2021-12-09 07:29] LABS: IFE Reflexed NOT DONE
[2021-12-09] MEDS: Budesonide/Formoterol 160/4.5 1 PUFF INH IH SCH ×2 (08:11→20:16)
[2021-12-09] MEDS: Simethicone 80 MG TAB.CHEW PO PRN (18:03)
[2021-12-09] MEDS: polyethylene glycoL 3350 17 GM POWD.PACK PO SCH (20:02)
[2021-12-09] MEDS: Furosemide 40 MG/4 ML VIAL IVP SCH (20:05)
[2021-12-10 03:30] LABS: Basophils % 0.3 %; Hemoglobin 7.1 g/dL (12.9-16.9); Immature Granulocytes % 0.4 % (0-4); Red Cell Distribution Width 18.9 % (11.5-14.5)
[2021-12-10 03:31] LABS: Eosinophils # 0.3 K/mcL (0.0-0.6); Eosinophils % 3.1 %; Hematocrit 24.6 % (37.5-50.1); Lymphocytes # 1.1 K/mcL (0.6-4.6); Lymphocytes % 10.6 %; Mean Corpuscular HGB Conc 28.9 g/dL (31.6-35.5); Mean Corpuscular Hemoglobin 22.6 pg (28.0-33.3); Mean Corpuscular Volume 78.3 fL (83.0-100.0); Mean Platelet Volume 9.2 fL (9.4-12.4); Monocytes # 0.8 K/mcL (0.0-1.3); Monocytes % 7.6 %; Neutrophils # 8.2 K/mcL (1.6-8.9); Platelet Count 212 K/mcL (140-400); Red Blood Count 3.14 M/mcL (4.19-5.50); White Blood Count 10.5 K/mcL (4.3-11.1)
[2021-12-10 03:51] LABS: Calcium 9.6 mg/dL (8.6-10.3); Potassium 4.6 mEq/L (3.5-5.1)
[2021-12-10 03:54] LABS: Anisocytosis 2+ (Not Present); Hypochromasia Present (Not Present); Large Platelets Present (Not Present); Microcytosis Present (Not Present); Platelet Estimate Normal (Normal)
[2021-12-10] MEDS: Cyanocobalamin (B-12) 1,000 MCG TABLET PO SCH (07:32)
[2021-12-10] MEDS: Isosorbide MONOnitrate (24 HR) 30 MG TAB.ER.24H PO SCH (07:32)
[2021-12-10] MEDS: polyethylene glycoL 3350 17 GM POWD.PACK PO SCH (07:32)
[2021-12-10] MEDS: DilTIAZem CD (24hr) 120 MG CAP.ER.24H PO SCH (07:32)
[2021-12-10] MEDS: *HR* Rivaroxaban 15 MG TABLET PO SCH (07:32)
[2021-12-10] MEDS: Furosemide 40 MG/4 ML VIAL IVP SCH (07:32)
[2021-12-10] MEDS: Aspirin Enteric Coated 81 MG Tablet PO SCH (07:32)
[2021-12-10] MEDS: Insulin LISPRO 300 UNITS/3 ML VIAL SUBQ SCH ×4 (07:33→19:32)
[2021-12-10] MEDS: Budesonide/Formoterol 160/4.5 1 PUFF INH IH SCH ×2 (07:50→21:05)
[2021-12-10] MEDS: Simethicone 80 MG TAB.CHEW PO PRN (14:54)
[2021-12-10 15:05] LABS: Hematocrit 26.4 % (37.5-50.1); Hemoglobin 7.6 g/dL (12.9-16.9)
[2021-12-10] MEDS: Albumin 25% 25gram/100mL 25 GM/100 ML IV.SOLN IVPB SCH ×2 (15:45→23:02)
[2021-12-11 02:46] LABS: Basophils % 0.4 %; Eosinophils # 0.3 K/mcL (0.0-0.6); Eosinophils % 2.8 %; Hematocrit 24.8 % (37.5-50.1); Hemoglobin 7.3 g/dL (12.9-16.9); Immature Granulocytes % 0.4 % (0-4); Lymphocytes # 1.3 K/mcL (0.6-4.6); Lymphocytes % 12.4 %; Mean Corpuscular HGB Conc 29.4 g/dL (31.6-35.5); Mean Corpuscular Hemoglobin 22.9 pg (28.0-33.3); Mean Corpuscular Volume 77.7 fL (83.0-100.0); Mean Platelet Volume 9.7 fL (9.4-12.4); Monocytes # 0.8 K/mcL (0.0-1.3); Monocytes % 7.8 %; Neutrophils # 8.2 K/mcL (1.6-8.9); Platelet Count 232 K/mcL (140-400); Red Blood Count 3.19 M/mcL (4.19-5.50); Red Cell Distribution Width 18.9 % (11.5-14.5); Segmented Neutrophils % 76.2 %; White Blood Count 10.8 K/mcL (4.3-11.1)
[2021-12-11 03:47] LABS: Calcium 9.6 mg/dL (8.6-10.3); Potassium 4.9 mEq/L (3.5-5.1)
[2021-12-11] MEDS: Budesonide/Formoterol 160/4.5 1 PUFF INH IH SCH ×2 (07:47→20:26)
[2021-12-11] MEDS: Isosorbide MONOnitrate (24 HR) 30 MG TAB.ER.24H PO SCH (08:17)
[2021-12-11] MEDS: DilTIAZem CD (24hr) 120 MG CAP.ER.24H PO SCH (08:17)
[2021-12-11] MEDS: Cyanocobalamin (B-12) 1,000 MCG TABLET PO SCH (08:17)
[2021-12-11] MEDS: polyethylene glycoL 3350 17 GM POWD.PACK PO SCH (08:18)
[2021-12-11] MEDS: Insulin LISPRO 300 UNITS/3 ML VIAL SUBQ SCH ×4 (08:18→21:27)
[2021-12-11] MEDS: Albumin 25% 25gram/100mL 25 GM/100 ML IV.SOLN IVPB SCH ×3 (08:18→23:06)
[2021-12-11] MEDS: Simethicone 80 MG TAB.CHEW PO PRN (18:32)
[2021-12-12 02:27] LABS: Basophils % 0.3 %; Eosinophils # 0.4 K/mcL (0.0-0.6); Eosinophils % 3.5 %; Hematocrit 23.2 % (37.5-50.1); Hemoglobin 6.8 g/dL (12.9-16.9); Immature Granulocytes % 0.3 % (0-4); Lymphocytes # 1.2 K/mcL (0.6-4.6); Lymphocytes % 10.7 %; Mean Corpuscular HGB Conc 29.3 g/dL (31.6-35.5); Mean Corpuscular Hemoglobin 22.7 pg (28.0-33.3); Mean Corpuscular Volume 77.6 fL (83.0-100.0); Mean Platelet Volume 9.2 fL (9.4-12.4); Monocytes # 0.8 K/mcL (0.0-1.3); Monocytes % 7.6 %; Neutrophils # 8.5 K/mcL (1.6-8.9); Platelet Count 208 K/mcL (140-400); Red Blood Count 2.99 M/mcL (4.19-5.50); Red Cell Distribution Width 19.2 % (11.5-14.5); Segmented Neutrophils % 77.6 %
[2021-12-12 02:44] LABS: Calcium 9.8 mg/dL (8.6-10.3); Potassium 5.2 mEq/L (3.5-5.1)
[2021-12-12 04:44] VITALS: O2SAT 100
[2021-12-12] MEDS ORDERED: 0.9 % Sodium Chloride 250 ML ONE (05:32)
[2021-12-12] MEDS: Insulin LISPRO 300 UNITS/3 ML VIAL SUBQ SCH ×2 (07:21→11:49)
[2021-12-12] MEDS: Cyanocobalamin (B-12) 1,000 MCG TABLET PO SCH (08:09)
[2021-12-12] MEDS: DilTIAZem CD (24hr) 120 MG CAP.ER.24H PO SCH (08:09)
[2021-12-12] MEDS: polyethylene glycoL 3350 17 GM POWD.PACK PO SCH (08:09)
[2021-12-12] MEDS: Isosorbide MONOnitrate (24 HR) 30 MG TAB.ER.24H PO SCH (08:09)
[2021-12-12] MEDS: Albumin 25% 25gram/100mL 25 GM/100 ML IV.SOLN IVPB SCH (09:20)
[2021-12-12] MEDS: Budesonide/Formoterol 160/4.5 1 PUFF INH IH SCH (10:06)
[2021-12-12 10:07] VITALS: BP 123/57; PULSE 75; TEMP 97.9
[2021-12-12] MEDS ORDERED: Furosemide 80 MG in 0.9 % Sodium Chloride 50 ML IVPB ONE (12:20)
[2021-12-12 13:08] LABS: Urine Collection Volume 2519 mL
[2021-12-12] MEDS ORDERED: ALPRAZolam 0.25 MG TABLET PO ONE (13:29)
[2021-12-12 13:33] LABS: Urine Creatinine mg/d 1260 mg/d (800-2100)
== END 2021-12-12 17:02 | disposition short-term general hospital (02) | DRG 469 ==
LOC: 3NENU → SUATTDRO 21:02
PROVIDERS: ADMIT Internal Medicine; ATTEND Internal Medicine

== ENCOUNTER 2022-05-11 17:04 | Inpatient (IN) ==
[2022-05-11 18:00] LABS: Basophils # 0.1 K/mcL (0.0-0.2); Basophils % 0.5 %; Eosinophils # 0.1 K/mcL (0.0-0.6); Eosinophils % 1.3 %; Hematocrit 38.2 % (37.5-50.1); Hemoglobin 11.5 g/dL (12.9-16.9); Immature Granulocytes % 0.2 % (0-4); Lymphocytes # 1.7 K/mcL (0.6-4.6); Lymphocytes % 16.2 %; Mean Corpuscular HGB Conc 30.1 g/dL (31.6-35.5); Mean Corpuscular Hemoglobin 26.3 pg (28.0-33.3); Mean Corpuscular Volume 87.2 fL (83.0-100.0); Mean Platelet Volume 10.1 fL (9.4-12.4); Monocytes # 0.8 K/mcL (0.0-1.3); Monocytes % 7.3 %; Neutrophils # 7.7 K/mcL (1.6-8.9); Platelet Count 217 K/mcL (140-400); Red Blood Count 4.38 M/mcL (4.19-5.50); Red Cell Distribution Width 14.8 % (11.5-14.5); Segmented Neutrophils % 74.5 %; White Blood Count 10.3 K/mcL (4.3-11.1)
[2022-05-11 18:27] LABS: Troponin I 0.04 ng/mL (< 0.04)
[2022-05-11 18:32] LABS: Bacteria,Urine Few per hpf (None-Few); Bilirubin,Urine Negative (Negative); Blood,Urine Negative (Negative); Clarity,Urine Clear (Clear); Color,Urine Light-Yellow (Yellow); Glucose,Urine (UA) 200 mg/dL (Normal); Hyaline Casts,Urine Few per lpf (None Seen); Ketones,Urine Negative (Negative); Leukocyte Esterase,Urine Negative (Negative); Mucus,Urine Few per lpf (None-Few); Nitrite,Urine Negative (Negative); PH,Urine 5.5 pH Units (5.0-8.0); Protein,Urine 30 mg/dL (Neg-Trace); RBC,Urine 0-3 per hpf (0-3); Specific Gravity,Urine 1.017 (1.010-1.025); Urobilinogen,Urine Normal (Normal); WBC,Urine 0-3 per hpf (0-3)
[2022-05-11 19:05] LABS: Calcium 9.5 mg/dL (8.6-10.3); Potassium 5.2 mEq/L (3.5-5.1)
[2022-05-11] MEDS ORDERED: Naloxone 0.4 MG/ML INJ IVP PRN (21:16)
[2022-05-11] MEDS ORDERED: Ondansetron 4 MG/2 ML VIAL IVP PRN (21:16)
[2022-05-11] MEDS ORDERED: Melatonin 3 MG TABLET PO PRN (21:16)
[2022-05-11] MEDS ORDERED: Dextrose Gel 15 GM/37.5 ML TUBE PO PRN ×2 (21:19)
[2022-05-11] MEDS ORDERED: D5% in Water 1,000 ML IVC PRN (21:19)
[2022-05-11] MEDS ORDERED: *HR* Dextrose 50 % in Water (Syg) 50 ML SYRINGE IVP PRN (21:19)
[2022-05-11] MEDS: Apixaban 5 MG TABLET PO SCH (21:44)
[2022-05-11] MEDS ORDERED: Furosemide 40 MG/4 ML VIAL IVP ONE (22:02)
[2022-05-11] MEDS: Insulin DETEMIR 100 UNIT/ML X5UNITS SUBQ SCH (22:28)
[2022-05-11 23:45] LABS: Influenza A PCR Negative (Negative); Influenza B PCR Negative (Negative); Resp. Syncytial Virus PCR Negative (Negative)
[2022-05-11 23:46] LABS: SARS-CoV-2 by PCR (In House) Negative (Negative)
[2022-05-11] MEDS: Nystatin POWDER 30 GM BOTTLE TP SCH (23:52)
[2022-05-12 03:32] LABS: Basophils % 0.4 %; Eosinophils # 0.2 K/mcL (0.0-0.6); Eosinophils % 2.3 %; Hematocrit 34.6 % (37.5-50.1); Hemoglobin 10.4 g/dL (12.9-16.9); Immature Granulocytes % 0.2 % (0-4); Lymphocytes # 1.5 K/mcL (0.6-4.6); Lymphocytes % 16.2 %; Mean Corpuscular HGB Conc 30.1 g/dL (31.6-35.5); Mean Corpuscular Hemoglobin 26.5 pg (28.0-33.3); Mean Platelet Volume 10.3 fL (9.4-12.4); Monocytes # 0.8 K/mcL (0.0-1.3); Monocytes % 8.5 %; Neutrophils # 6.7 K/mcL (1.6-8.9); Platelet Count 198 K/mcL (140-400); Red Blood Count 3.93 M/mcL (4.19-5.50); Red Cell Distribution Width 14.7 % (11.5-14.5); Segmented Neutrophils % 72.4 %; White Blood Count 9.2 K/mcL (4.3-11.1)
[2022-05-12 03:39] LABS: INR 2.8; Prothrombin Time 30.7 Seconds (9.4-12.1)
[2022-05-12 03:59] LABS: Magnesium 2.2 mg/dL (1.6-2.6); Phosphorous 3.5 mg/dL (2.7-4.5); Potassium 5.2 mEq/L (3.5-5.1); Troponin I 0.04 ng/mL (< 0.04)
[2022-05-12] MEDS: Insulin LISPRO 300 UNITS/3 ML VIAL SUBQ SCH ×4 (07:10→20:45)
[2022-05-12] MEDS: Apixaban 5 MG TABLET PO SCH ×2 (08:35→20:23)
[2022-05-12] MEDS: Nystatin POWDER 30 GM BOTTLE TP SCH ×3 (08:35→21:04)
[2022-05-12] MEDS ORDERED: CHLOROTHIAZIDE SODIUM IVP ONE (10:47)
[2022-05-12] MEDS ORDERED: WATER FOR INJ IVP ONE (10:47)
[2022-05-12] MEDS ORDERED: Furosemide 480 MG in 0.9 % Sodium Chloride 192 ML IVC SCH (11:00)
[2022-05-12] MEDS: Acetaminophen 325 MG TABLET PO PRN (11:38)
[2022-05-12] MEDS: Insulin DETEMIR 100 UNIT/ML X5UNITS SUBQ SCH (20:45)
[2022-05-13] MEDS: Furosemide 480 MG in 0.9 % Sodium Chloride 192 ML IVC SCH (01:18)
[2022-05-13 03:39] LABS: Hematocrit 34.4 % (37.5-50.1); Hemoglobin 10.4 g/dL (12.9-16.9); Mean Corpuscular HGB Conc 30.2 g/dL (31.6-35.5); Mean Corpuscular Hemoglobin 26.3 pg (28.0-33.3); Mean Corpuscular Volume 86.9 fL (83.0-100.0); Mean Platelet Volume 10.4 fL (9.4-12.4); Platelet Count 186 K/mcL (140-400); Red Blood Count 3.96 M/mcL (4.19-5.50); Red Cell Distribution Width 14.8 % (11.5-14.5); White Blood Count 8.4 K/mcL (4.3-11.1)
[2022-05-13] MEDS: Acetaminophen 325 MG TABLET PO PRN (03:59)
[2022-05-13 04:09] LABS: Calcium 8.6 mg/dL (8.6-10.3); Magnesium 2.1 mg/dL (1.6-2.6); Potassium 5.1 mEq/L (3.5-5.1)
[2022-05-13] MEDS: Insulin LISPRO 300 UNITS/3 ML VIAL SUBQ SCH ×4 (09:12→20:39)
[2022-05-13] MEDS: Apixaban 5 MG TABLET PO SCH ×2 (09:14→20:38)
[2022-05-13] MEDS: Nystatin POWDER 30 GM BOTTLE TP SCH ×3 (09:16→20:38)
[2022-05-13] MEDS ORDERED: Ipratropium/Albuterol Neb 3 ML IH PRN (13:59)
[2022-05-13 19:47] LABS: Total Volume 24 Hour,Urine 3.76 Liters (0.80-1.80)
[2022-05-13] MEDS: Insulin DETEMIR 100 UNIT/ML X5UNITS SUBQ SCH (20:39)
[2022-05-14] MEDS: Furosemide 480 MG in 0.9 % Sodium Chloride 192 ML IVC SCH (00:41)
[2022-05-14 02:15] LABS: Calcium 8.6 mg/dL (8.6-10.3); Potassium 5.3 mEq/L (3.5-5.1)
[2022-05-14] MEDS: Apixaban 5 MG TABLET PO SCH ×2 (08:38→21:21)
[2022-05-14] MEDS: Nystatin POWDER 30 GM BOTTLE TP SCH ×3 (08:39→21:22)
[2022-05-14] MEDS: Insulin LISPRO 300 UNITS/3 ML VIAL SUBQ SCH ×4 (08:39→21:22)
[2022-05-14] MEDS: Insulin DETEMIR 100 UNIT/ML X5UNITS SUBQ SCH (21:21)
[2022-05-14] MEDS: Furosemide 80 MG in 0.9 % Sodium Chloride 50 ML IV SCH (21:21)
[2022-05-15] MEDS: Insulin LISPRO 300 UNITS/3 ML VIAL SUBQ SCH ×4 (08:44→20:28)
[2022-05-15] MEDS: Furosemide 80 MG in 0.9 % Sodium Chloride 50 ML IV SCH ×2 (08:44→20:34)
[2022-05-15] MEDS: Nystatin POWDER 30 GM BOTTLE TP SCH ×3 (08:44→20:35)
[2022-05-15] MEDS: Apixaban 5 MG TABLET PO SCH ×2 (08:45→20:34)
[2022-05-15 16:03] LABS: Calcium 8.6 mg/dL (8.6-10.3); Potassium 4.6 mEq/L (3.5-5.1)
[2022-05-15] MEDS: cephALEXin 500 MG CAPSULE PO SCH ×2 (16:34→20:34)
[2022-05-15] MEDS: Lacri-Lube 3.5 GM TUBE BOTH EYES SCH ×2 (16:34→20:34)
[2022-05-15] MEDS: Acetaminophen 325 MG TABLET PO PRN (20:38)
[2022-05-15] MEDS: Insulin DETEMIR 100 UNIT/ML X5UNITS SUBQ SCH (20:40)
[2022-05-16 04:09] LABS: Calcium 8.4 mg/dL (8.6-10.3); Potassium 4.6 mEq/L (3.5-5.1)
[2022-05-16 05:01] LABS: Estimated Average Glucose 192 mg/dl; Hemoglobin A1C 8.3 %
[2022-05-16] MEDS: cephALEXin 500 MG CAPSULE PO SCH ×4 (08:16→20:09)
[2022-05-16] MEDS: Lacri-Lube 3.5 GM TUBE BOTH EYES SCH ×2 (08:16→20:09)
[2022-05-16] MEDS: Apixaban 5 MG TABLET PO SCH ×2 (08:16→20:09)
[2022-05-16] MEDS: Insulin LISPRO 300 UNITS/3 ML VIAL SUBQ SCH ×4 (08:17→20:10)
[2022-05-16] MEDS: Nystatin POWDER 30 GM BOTTLE TP SCH ×3 (08:17→20:10)
[2022-05-16] MEDS: Furosemide 80 MG in 0.9 % Sodium Chloride 50 ML IV SCH (08:17)
[2022-05-16] MEDS: Furosemide 40 MG TABLET PO SCH (16:53)
[2022-05-16] MEDS: Insulin DETEMIR 100 UNIT/ML X5UNITS SUBQ SCH (20:09)
[2022-05-17] MEDS: Insulin LISPRO 300 UNITS/3 ML VIAL SUBQ SCH ×4 (07:09→20:09)
[2022-05-17] MEDS: cephALEXin 500 MG CAPSULE PO SCH ×4 (08:02→20:43)
[2022-05-17] MEDS: Apixaban 5 MG TABLET PO SCH (08:02)
[2022-05-17] MEDS: Furosemide 40 MG TABLET PO SCH ×2 (08:03→16:55)
[2022-05-17] MEDS: Nystatin POWDER 30 GM BOTTLE TP SCH ×3 (08:03→20:44)
[2022-05-17] MEDS: Lacri-Lube 3.5 GM TUBE BOTH EYES SCH ×2 (08:03→20:44)
[2022-05-17 08:15] LABS: Calcium 8.8 mg/dL (8.6-10.3); Potassium 4.1 mEq/L (3.5-5.1)
[2022-05-17 08:17] LABS: INR 2.1
[2022-05-17 11:23] LABS: Total Volume 24 Hour,Urine 2.05 Liters (0.80-1.80)
[2022-05-17 11:35] LABS: Protein/Creatinine Ratio,Urine 0.47 mg/mg (0.00-0.20)
[2022-05-17] MEDS: Insulin DETEMIR 100 UNIT/ML X5UNITS SUBQ SCH (20:44)
[2022-05-17] MEDS: Acetaminophen 325 MG TABLET PO PRN (20:44)
[2022-05-18 05:33] LABS: Calcium 8.7 mg/dL (8.6-10.3); Potassium 4.4 mEq/L (3.5-5.1)
[2022-05-18] MEDS: Insulin LISPRO 300 UNITS/3 ML VIAL SUBQ SCH ×4 (07:44→20:27)
[2022-05-18] MEDS: Nystatin POWDER 30 GM BOTTLE TP SCH ×3 (07:46→20:36)
[2022-05-18] MEDS: cephALEXin 500 MG CAPSULE PO SCH ×4 (07:46→20:35)
[2022-05-18] MEDS: Aspirin 81 MG TAB.CHEW PO SCH (07:46)
[2022-05-18] MEDS: Lacri-Lube 3.5 GM TUBE BOTH EYES SCH ×2 (07:47→20:35)
[2022-05-18] MEDS: Furosemide 40 MG TABLET PO SCH ×2 (07:47→17:17)
[2022-05-18] MEDS: Insulin DETEMIR 100 UNIT/ML X5UNITS SUBQ SCH (21:29)
[2022-05-18] MEDS: Acetaminophen 325 MG TABLET PO PRN (21:29)
[2022-05-19 06:21] VITALS: O2SAT 97
[2022-05-19] MEDS: Insulin LISPRO 300 UNITS/3 ML VIAL SUBQ SCH ×2 (07:42→11:41)
[2022-05-19] MEDS: Lacri-Lube 3.5 GM TUBE BOTH EYES SCH (07:56)
[2022-05-19] MEDS: Nystatin POWDER 30 GM BOTTLE TP SCH (07:56)
[2022-05-19] MEDS: Furosemide 40 MG TABLET PO SCH (07:57)
[2022-05-19] MEDS: Aspirin 81 MG TAB.CHEW PO SCH (07:57)
[2022-05-19] MEDS: cephALEXin 500 MG CAPSULE PO SCH ×2 (07:57→13:18)
[2022-05-19] MEDS: Acetaminophen 325 MG TABLET PO PRN (08:09)
[2022-05-19 08:26] LABS: INR 1.5
[2022-05-19 08:35] LABS: Calcium 8.9 mg/dL (8.6-10.3); Potassium 4.2 mEq/L (3.5-5.1)
[2022-05-19 11:00] VITALS: BP 143/88; PULSE 64; TEMP 97.6
[2022-05-19 14:09] LABS: Influenza A PCR Negative (Negative); Influenza B PCR Negative (Negative); Resp. Syncytial Virus PCR Negative (Negative); SARS-CoV-2 by PCR (In House) Negative (Negative)
== END 2022-05-19 16:05 | DRG 194 ==
LOC: EMEROOARM 17:04 → 3BNU 17:04 → SUATTDRO 20:19 → 3BNU 21:10 → SUATTDRO 05-14 07:56
PROVIDERS: ADMIT Internal Medicine; ATTEND Internal Medicine